=== PATIENT | female | born 1935 | race Caucasian/White ===

== ENCOUNTER → 2016-08-28 | Outpatient (CLI) | payer BC ==
[~2016-08-28] MED LIST: CALCTAB5 PO; COEN1CAP PO; GLC500 PO; GLIM2TAB2 PO; MULT-506 PO; SIMV20TA2 PO
--- NOTE | 2016-08-28 15:58 | MAMMOGRAPHY REPORT ---
BILATERAL DIGITAL SCREENING MAMMOGRAM WITH CAD: 08/28/2016 CLINICAL HISTORY: Routine screening. Patient has no complaints. TECHNIQUE: Bilateral CC and MLO views were obtained. Current study was also evaluated with a Comput er Aided Detection (CAD) system. COMPARISON: Comparison is made to exams dated: 04/05/2015 mammogram, 02/05/2013 mammogram, 02/10/2014 ma mmogram, 03/10/2014 mammogram - [facility], 01/28/2008, and 01/28/2009. BREAST COMPOSITION: There are scattered areas of fibroglandular density in both breasts. FINDINGS: The MLO views, particularly the left MLO view are suboptimal due to inability of the patie nt to adequately position for the exam, partially due to a humerus fracture. There are scattered benign-appearing calcifications bilaterally. A stable metallic biopsy marker i n the 6:00 posterior right breast. Stable asymmetry in the superior posterior left breast. No susp icious mass, architectural distortion or cluster of microcalcifications is seen. IMPRESSION: ACR BI-RADS CATEGORY 1: NEGATIVE There is no mammographic evidence of malignancy, within the limitations of the exam given suboptimal MLO positioning. A 1 year screening mammogram is recommended. The patient will receive written not ification of the results. Approximately 10% of breast cancers are not detected with mammography. A negative mammographic repor t should not delay biopsy if a clinically suggestive mass is present. Cari Bueno M.D. ay/:08/28/2016 14:37:42 Scrap Cutter: Mariah PAULA(Rubina)(Jennifer), [facility] letter sent: Normal 1/2 BI-RADS Code: ACR BI-RADS Category 1: Negative
--- NOTE | 2016-09-11 10:38 | CODING QUERY MEDICAL NECESSITY ---
SUPPORTING DIAGNOSIS NEEDED A supporting diagnosis is required for the test/procedure performed on this patient in order for us to be reimbursed by the patient's insurance. Please provide a supporting diagnosis for the following test/procedure listed below next to the test name along with your signature. *If there is no additional diagnosis for this patient that would support the following test/procedure please document that below next to the test/procedure. Test(s)/Procedure(s) that require a supporting diagnosis: * VITAMIN D 25-HYDROXY DIAGNOSIS: * DOS: 08/28/16 Provider Signature: Date: Thank you Anastasiia Rivera Health Information Management Once completed, please kindly fax back to [phone] For questions please call [phone]
== END | disposition home or self-care (01) ==
LOC: C.MAMM 13:55
PROVIDERS: ATTEND Internal Medicine
DX: Z12.31 Encounter for screening mammogram for malignant neoplasm of breast (principal); M85.852 Other specified disorders of bone density and structure, left thigh; M85.851 Other specified disorders of bone density and structure, right thigh; E55.9 Vitamin D deficiency, unspecified

== ENCOUNTER → 2016-08-28 | Outpatient (CLI) | payer BC | END | disposition home or self-care (01) | LOC: C.LAB1850 13:35 | PROVIDERS: ATTEND Internal Medicine Geriatric Medicine | DX: S52.501A Unspecified fracture of the lower end of right radius, initial encounter for closed fracture (principal); X58.XXXA Exposure to other specified factors, initial encounter ==

== ENCOUNTER → 2017-03-21 | Outpatient (CLI) | payer BC ==
[2017-03-21 13:33] LABS: BASO % 0.4 %; BASO ABS # 0.03 K/uL (0-0.2); COMPLETE YES; EOS % 2.5 %; HEMATOCRIT 45.9 % (37-47); IG% 0.2 %; LYMPH % 31.3 %; MEAN CELL VOLUME 94.3 fL (80-100); MEAN CORPUSCULAR HEMOGLOBIN 31.6 pg (25-34); MEAN CORPUSCULAR HGB CONC 33.6 g/dl (32-36); MEAN PLATELET VOLUME 10.8 fL (7.4-10.4); MONO % 6.1 %; NEUT % 59.5 %; PLATELET COUNT 254 K/uL (130-400); RED BLOOD COUNT 4.87 M/uL (4.2-5.4)
[2017-03-21 13:52] LABS: BLOOD UREA NITROGEN 18 mg/dl (7-18); BUN/CREATININE RATIO 27.8 (10-20); CALCIUM 10.2 mg/dl (8.5-10.1); CARBON DIOXIDE 29 mmol/L (21-32); CHLORIDE 107 mmol/L (98-107); CREATININE 0.64 mg/dl (0.60-1.20); GLUCOSE 128 mg/dl (70-99); POTASSIUM 4.3 mmol/L (3.5-5.1); SODIUM 138 mmol/L (136-145)
[2017-03-21 13:53] LABS: ESTIMATED AVERAGE GLUCOSE 146 mg/dl; HA1C FLAG Normal (Normal)
[2017-03-21 13:55] LABS: ALKALINE PHOSPHATASE 73 U/L (45-117); ALT/SGPT 17 U/L (12-78); AST/SGOT 14 U/L (15-37)
--- NOTE | 2017-03-28 11:32 | CODING QUERY MEDICAL NECESSITY ---
SUPPORTING DIAGNOSIS NEEDED A supporting diagnosis is required for the test/procedure performed on this patient in order for us to be reimbursed by the patient's insurance. Please provide a supporting diagnosis for the following test/procedure listed below next to the test name along with your signature. *If there is no additional diagnosis for this patient that would support the following test/procedure please document that below next to the test/procedure. Test(s)/Procedure(s) that require a supporting diagnosis: * HEMOGLOBIN A1C DIAGNOSIS: Provider Signature: Date: Thank you Yaneli Roque [facility] Information Management Once completed, please kindly fax back to [phone] For questions please call [phone]
== END | disposition home or self-care (01) ==
LOC: C.LABBC 10:10
PROVIDERS: ATTEND Internal Medicine
DX: E55.9 Vitamin D deficiency, unspecified (principal); E11.9 Type 2 diabetes mellitus without complications

== ENCOUNTER → 2017-10-23 | Outpatient (CLI) | payer BC ==
--- NOTE | 2017-10-24 14:54 | MAMMOGRAPHY REPORT ---
BILATERAL DIGITAL SCREENING MAMMOGRAM TOMOSYNTHESIS WITH CAD: 10/23/2017 CLINICAL HISTORY: Routine screening. Patient has no complaints. TECHNIQUE: Breast tomosynthesis in addition to standard 2D mammography was performed. Current study was also evaluated with a Computer Aided Detection (CAD) system. COMPARISON: Comparison is made to exams dated: 08/28/2016 mammogram, 04/05/2015 mammogram, 02/10/2014 ma mmogram, 02/05/2013 mammogram, 02/05/2012 mammogram, and 02/02/2011 mammogram - [facility]. BREAST COMPOSITION: There are scattered areas of fibroglandular density in both breasts. FINDINGS: A linear scar marker overlies the superior left breast. There are scattered benign round a nd rim calcifications. A stable dumbbell-shaped biopsy marker clip in the 6:00 right breast. No susp icious mass, architectural distortion or cluster of microcalcifications is seen. IMPRESSION: ACR BI-RADS CATEGORY 1: NEGATIVE There is no mammographic evidence of malignancy. A 1 year screening mammogram is recommended. The pa tient will receive written notification of the results. Approximately 10% of breast cancers are not detected with mammography. A negative mammographic report should not delay biopsy if a clinically suggestive mass is present. Cari Bueno M.D. ay/:10/23/2017 15:51:49 Attending Technologist: Kathy Cai RT(R)(M), [facility] Carpenter Rough: Ana Shelley RT(R)(M), [facility] letter sent: Normal 1/2 BI-RADS Code: ACR BI-RADS Category 1: Negative
== END | disposition home or self-care (01) ==
LOC: C.MAMM 14:54
PROVIDERS: ATTEND Internal Medicine
DX: Z12.31 Encounter for screening mammogram for malignant neoplasm of breast (principal)

== ENCOUNTER 2019-02-24 19:45 | Inpatient (IN) ==
[2019-02-24] MEDS ORDERED: SODIUM CHLORIDE 0.9% 1000ML 1,000 ML IV SCH (20:15)
[2019-02-24 20:43] LABS: Basophils # (auto) 0.01 K/uL (0-0.2); Basophils % (auto) 0.1 %; Eosinophils # (auto) 0.03 K/uL (0-0.5); Eosinophils % (auto) 0.4 %; Hematocrit (blood only) 36.3 % (37-47); Hemoglobin 12.5 g/dL (12.0-16.0); Immature Granulocytes # (auto) 0.02 K/uL (0.00-0.02); Immature Granulocytes % (auto) 0.3 %; Lymphocytes # (auto) 1.31 K/uL (1.2-3.4); Lymphocytes % (auto) 16.7 %; Mean Corpuscular Hgb Conc 34.4 g/dL (32-36); Mean Corpuscular Volume 93.3 fL (80-100); Mean Platelet Volume 10.2 fL (7.4-10.4); Monocytes % (auto) 11.5 %; Neutrophils # (auto) 5.59 K/uL (1.4-6.5); Platelet Count 161 K/uL (130-400); RDW Coefficient of Variation 13.4 % (11.5-14.5); RDW Standard Deviation 45.9 fL (36.4-46.3); Red Blood Count 3.89 M/uL (4.2-5.4); White Blood Count 7.86 K/uL (4.8-10.8)
[2019-02-24 21:15] LABS: Alanine Aminotransferase 15 U/L (12-78); Albumin Globulin Ratio 0.9 (0.9-2); Albumin Level 3.3 gm/dl (3.4-5.0); Alkaline Phosphatase 57 U/L (45-117); Aspartate Aminotransferase 15 U/L (15-37); BUN Creatinine Ratio 28.7 (10-20); Bilirubin,Total 0.9 mg/dl (0.2-1); Blood Urea Nitrogen 21 mg/dl (7-18); Calcium 9.2 mg/dl (8.5-10.1); Carbon Dioxide 25 mmol/L (21-32); Chloride 106 mmol/L (98-107); Creatinine Clr Calc Pharmacy 66.2 ml/min; Est GFR (African American) 87.4; Est GFR (Non-African American) 75.4; Globulin 3.7 gm/dl (2.5-4.0); Glucose 116 mg/dl (70-99); NT Pro B Type Natriuretic Pept 499 pg/ml (0-1800); Potassium 3.9 mmol/L (3.5-5.1); Sodium 136 mmol/L (136-145); Troponin I < 0.015 ng/ml (0-0.045)
--- NOTE | 2019-02-24 23:50 | History & Physical Report ---
Date of Service February 24, 2019 Assessment & Plan (1) Acute UTI: Follow urine culture and sensitivity. Had been placed on Cefdinir with failed outpatient therapy. Admit on ceftriaxone 1 g IV daily Present on Admission?: Yes (2) Acute confusion: Metabolic encephalopathy secondary to acute UTI and dehydration. Family reports she is somewhat improved in ED after some IV fluids Present on Admission?: Yes (3) Dehydration: Rehydrating with NSS at 200 mils per hour in the ED, will continue with NSS + KCl 20 mEq at 80 mils per hour. Present on Admission?: Yes (4) Cognitive impairment: Cognitive impairment/dementia continue donepezil 10 mg at bedtime Present on Admission?: Yes (5) Type 2 diabetes mellitus: Hold glimeperide Patient Accu-Cheks before meals and at bedtime with NovoLog coverage per scale Present on Admission?: Yes (6) Hyperlipidemia: Continue simvastatin 20 mg at bedtime Present on Admission?: Yes (7) Urinary urgency: Urge incontinence/bladder spasm- Continue tolterodine ER 4 mg daily Present on Admission?: Yes (8) Fall: Patient has had 3 falls, 2 in the past day, Likely secondary to generalized weakness associated with UTI. She does use a walker, and would likely benefit from PT/ OT assessment prior to discharge Present on Admission?: Yes History of Present Illness Chief Complaint: The patient presents to the emergency department with report of a total of 3 falls, with the first fall being 3 days ago, and 2 falls earlier in the day of arrival. Primary Care Provider: Aniket Drake MD The patient is a an 83-year-old female with past medical history including hyperlipidemia, diabetes mellitus and dementia, who presents to the ED with 3 reported falls in the past 3 days, 2 of them happening in the day of arrival. Her family reports that she has been more confused, with worsening memory loss, and also note had been started on an antibiotic Ceftin ear for UTI she was diag nosed with the previous day. The patient reports increased urinary frequency, and has been drinking less water lately, so that she does not have to run to the bathroom so much. Her UTI yesterday was diagnosed at the ED, after she felt unwell at the [facility]. She does have a history of recurrent urinary tract infections. Allergies Allergy/AdvReac Type Severity Reaction Status Date / Time adhesive Allergy Unknown SKIN Verified 02/24/19 20:54 BLISTERS tetanus toxoid, adsorbed Allergy Unknown EDEMA AT Verified 02/24/19 20:54 SITE codeine AdvReac Unknown HEART Verified 02/24/19 20:54 PALPITATIONS, RECIEVED MORPHINE IV IN 2004 ADMIT Home Medications Home Medications Medication Instructions Recorded Confirmed Type calcium carbonate 600 mg calcium 600 mg PO DAILY tab 01/01/19 02/24/19 History (1,500 mg) tablet cholecalciferol (vitamin D3) 2,000 2,000 units PO DAILY cap 01/01/19 02/24/19 History unit capsule coenzyme Q 10 10 mg capsule 10 mg PO DAILY cap 01/01/19 02/24/19 History donepezil 10 mg tablet 10 mg PO HS #30 tab 01/01/19 02/24/19 History glimepiride 2 mg tablet 4 mg PO DAILY #180 tab 01/01/19 02/24/19 History multivitamin tablet 1 tab PO DAILY 01/01/19 02/24/19 History omega-3 acid ethyl esters 1 gram 2 cap PO DAILY cap 01/01/19 02/24/19 History capsule simvastatin 20 mg tablet 20 mg PO QPM #90 tab 01/01/19 02/24/19 History tolterodine ER 4 mg 4 mg PO DAILY #90 cap 01/01/19 02/24/19 History capsule,extended release 24 hr vitamin B complex tablet 1 tab PO DAILY 01/01/19 02/24/19 History celecoxib 200 mg capsule 200 mg PO DAILY #30 cap 01/02/19 02/24/19 Rx tramadol 50 mg tablet 50 mg PO DAILY #30 tab 02/01/19 02/24/19 Rx cefdinir 300 mg PO BID 5 Days #10 cap 02/23/19 02/24/19 Rx Past Med/Surg History Medical History Abnormal finding on imaging Cognitive impairment Cyst of kidney, acquired Edema of left lower extremity Fatigue Knee pain Laceration Memory loss, 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 Pain of right tibia Right knee pain Urinary urgency Vitamin D deficiency Gait instability Gastroesophageal reflux Hyperlipidemia Type 2 diabetes mellitus Surgical History H/O: hysterectomy History of appendectomy Hx of knee surgery Family History Sister Diabetes Stroke Brother Diabetes Prostate cancer Father Lung disease Social History Preferred Language: [place] Communication Ability: Effective Crematorium Operator Required: No Beliefs That Will Affect Care: None Current Living Situation: Alone Other Information That Helps Us Care for You: No Feels Safe at Home: Yes Safety Concerns: Feels Safe At This Time Smoking Status: Former smoker Hx Alcohol Use: Yes Alcohol type: wine Hx Substance Use: No caffeine: No Seatbelt Use: always Review of Systems Review of Systems: The patient denies chest pain, palpitations, shortness of breath, dyspnea on exertion, cough, sore throat, fevers, chills, sweats, nausea, vomiting, diarrhea , constipation, abdominal pain, pelvic pain, blood in urine or stool, dysuria, urinary frequency or urgency, lightheadedness, dizziness, headache, loss of consciousness, rash, abnormal bruising or bleeding, focal weakness, numbness or tingling in arms or legs, generalized arthralgias or myalgias, back or neck pain, or night sweats. The review of systems is otherwise negative other than for that already noted above, and at least 10 systems have been reviewed. Physical Exam Physical Exam: The patient is awake, alert and oriented 3, well developed and well nourished, normocephalic and atraumatic, lying in bed and in no acute distress. HEENT--PERRL, EOMI, mucous membranes and oropharynx dry. Neck--supple. No JVD. No bruits. Thyroid normal, trachea midline, no nilam nopathy. Heart--normal S1 and S2. No murmurs, rubs or gallops. Lungs--clear bilaterally, no respiratory distress, no accessory muscle use. Abdomen--normal bowel sounds and soft. Nontender. Nondistended. Extremities--no cyanosis or clubbing. No edema. There are good distal pulses b/l. Dermatologic--normal skin turgor, normal color, no abnormal lymph nodes, no rash. Neurologic--cranial nerves II through XII grossly intact. Rheumatologic--normal range of motion. Psychiatric--normal affect. Family reports the patient is significantly better after having received IV fluids in the ED Results & Data Vital Signs (Past 12 Hours) Vital Signs Temp Pulse Pulse Resp BP BP Pulse Ox 02/24/19 23:30 67 20 140/69 95 02/24/19 22:30 68 16 133/70 96 02/24/19 22:00 67 18 131/69 94 02/24/19 21:30 69 17 141/71 H 95 02/24/19 21:00 68 18 129/65 95 02/24/19 20:44 70 20 130/62 95 02/24/19 20:43 70 20 130/62 92 02/24/19 20:30 69 20 02/24/19 20:00 74 26 H 150/59 H 93 02/24/19 19:54 76 23 93 02/24/19 19:51 77 18 160/63 H 93 02/24/19 19:40 99.5 F 75 20 160/63 H 93 Laboratory Results Laboratory Results WBC 7.86 K/uL (4.8-10.8) 02/24/19 20: RBC 3.89 M/uL (4.2-5.4) L 02/24/19 20:27 Hgb 12.5 g/dL (12.0-16.0) 02/24/19 20:27 Hct 36.3 % (37-47) L 02/24/19 20:27 MCV 93.3 fL (80-100) 02/24/19 20:27 MCH 32.1 pg (25-34) 02/24/19 20: MCHC 34.4 g/dL (32-36) 02/24/19 20:27 RDW Std Deviation 45.9 fL (36.4-46.3) 02/24/19 20: RDW Coeff of Junie 13.4 % (11.5-14.5) 02/24/19 20: Plt Count 161 K/uL (130-400) 02/24/19 20: MPV 10.2 fL (7.4-10.4) 02/24/19 20: Immature Gran % (Auto) 0.3 % 02/24/19 20:27 Neut % (Auto) 71.0 % 02/24/19 20:27 Lymph % (Auto) 16.7 % 02/24/19 20:27 Mckenzie % (Auto) 11.5 % 02/24/19 20:27 Eos % (Auto) 0.4 % 02/24/19 20:27 Baso % (Auto) 0.1 % 02/24/19 20: Immature Gran # (Auto) 0.02 K/uL (0.00-0.02) 02/24/19 20: Neut # (Auto) 5.59 K/uL (1.4-6.5) 02/24/19 20: Lymph # (Auto) 1.31 K/uL (1.2-3.4) 02/24/19 20: Mckenzie # (Auto) 0.90 K/uL (0.11-0.59) H 02/24/19 20: Eos # (Auto) 0.03 K/uL (0-0.5) 02/24/19 20: Baso # (Auto) 0.01 K/uL (0-0.2) 02/24/19 20: Sodium 136 mmol/L (136-145) 02/24/19 20: Potassium 3.9 mmol/L (3.5-5.1) 02/24/19 20: Chloride 106 mmol/L (98-107) 02/24/19 20: Carbon Dioxide 25 mmol/L (21-32) 02/24/19 20: Anion Gap 6.0 (3-11) 02/24/19 20: BUN 21 mg/dl (7-18) H 02/24/19 20: Creatinine 0.74 mg/dl (0.6-1.2) 02/24/19 20: Est Cr Clr Drug Dosing 66.2 ml/min 02/24/19 20: Est GFR ( Amer) 87.4 02/24/19 20: Est GFR (Non-Af Amer) 75.4 02/24/19 20: BUN/Creatinine Ratio 28.7 (10-20) H 02/24/19 20: Glucose 116 mg/dl (70-99) H 02/24/19 20: POC Glucose 125 (70-99) H 02/25/19 00:33 POC Lactic Acid Femi 0.71 mmol/L (0.90-1.70) L 02/24/19 20: Calcium 9.2 mg/dl (8.5-10.1) 02/24/19 20: Magnesium 2.0 mg/dl (1.8-2.4) 02/24/19 20:27 Total Bilirubin 0.9 mg/dl (0.2-1) 02/24/19 20:27 AST 15 U/L (15-37) 02/24/19 20:27 ALT 15 U/L (12-78) 02/24/19 20: Alkaline Phosphatase 57 U/L (45-117) 02/24/19 20: Troponin I < 0.015 ng/ml (0-0.045) 02/24/19 20: NT-Pro-B Natriuret Pep 499 pg/ml (0-1800) 02/24/19 20: Total Protein 7.0 gm/dl (6.4-8.2) 02/24/19 20: Albumin 3.3 gm/dl (3.4-5.0) L 02/24/19 20: Globulin 3.7 gm/dl (2.5-4.0) 02/24/19 20: Albumin/Globulin Ratio 0.9 (0.9-2) 02/24/19 20: Lipase 121 U/L (73-393) 02/24/19 20: TSH 2.110 uIu/ml (0.300-4.500) 02/24/19 20:27 Diagnostic Findings [place], [place] [phone] CT Scan Report Patient: FARZAD OLIVEIRA AAdmit Date: 02/23/19 MR#: [id number]: [address] [place] [address] Acct ID:[id number]: [address] Date: 1935[facility] Zip: [place] [address] Age: 83Location: Sex: F Room/Bed: Att Phy: Diagnosis: Increased confusion today Hellen Phy: Aniket Drakeervice Date: 02/23/19 Fam Phy: Interpreting Phy: Chandan Scott MD Admit Phy: Ordering Phy: Trino Ballard DO cc: ~ CT SCAN OF THE BRAIN WITHOUT IV CONTRAST CLINICAL HISTORY: Change in mental status. COMPARISON STUDY: CT of the brain dated 07/07/2015. TECHNIQUE: Unenhanced axial CT scan of the brain is performed from the vertex to the skull base. A dose lowering technique was utilized adhering to the principles of ALARA. The skull base was scanned twice due to motion artifact. CT DOSE: 1228.53 mGy.cm FINDINGS: Brain parenchyma: There are age-related involutional changes noting moderate confluent subcortical and periventricular microangiopathic change. There is no hemorrhage, mass effect, or evidence of acute territorial ischemia by CT criteria. Croft-white matter differentiation is preserved. No extra-axial fluid collection is seen. Ventricles, sulci, cisterns: Prominent secondary to involutional change. Intracranial vasculature: There is atherosclerotic calcification of the cavernous carotid arteries. Calvarium: Unremarkable. Sinuses and mastoids: Fluid/secretions are noted in the left sphenoid sinus. The remaining visualized paranasal sinuses are clear. The mastoid air cells are well pneumatized. Orbits: The bony orbits are grossly intact. There are bilateral ocular lens implants. IMPRESSION: There is no hemorrhage, mass effect, or evidence of acute territorial ischemia by CT criteria. Electronically signed by: Chandan Scott M.D. 02/23/2019 7:40 PM Dictated: 02/23/191936 Transcribed: 02/23/191936 [place], [place] [phone] XRay Report Patient: FARZAD OLIVEIRA AAdmit Date: 02/23/19 MR#: [id number]: [address] [place] [address] Acct ID:[id number]: [address] [facility] Zip: [place] [address] Age: 83Location: ED Sex: F Room/Bed: Att Phy: Diagnosis: Increased confusion today Hellen Phy: Aniket Drake MDService Date: 02/23/19 Fam Phy: Interpreting Phy: Chandan Scott MD Admit Phy: Ordering Phy: Trino Ballard DO cc: ~ SINGLE VIEW CHEST CLINICAL HISTORY: Generalized weakness. FINDINGS: An AP, portable, upright chest radiograph is compared to study dated 11/13/2015. No prior studies are available for comparison at the time of dictation. The heart is enlarged and there is atherosclerotic calcification of the thoracic aorta. The pulmonary vasculature is noncongested. There is bibasil ar scarring/atelectasis. No airspace consolidation or large pleural effusion is identified. No pneumothorax is seen. The skeletal structures are osteopenic. There is chronic posttraumatic deformity and postoperative change seen in the left humerus. IMPRESSION: Cardiomegaly with no active disease in the chest. Electronically signed by: Chandan Scott M.D. 02/23/2019 7:21 PM Dictated: 02/23/191919 Transcribed: 02/23/191919 Code Status & VTE Plan Code Status Full code VTE Prophylaxis Plan VTE Prophylaxis will be ordered: Yes PG Care Time/CCT Total # of Minutes Spent Total Time Spent with Patient: Total time spent is greater than 50% in coordination of care (as documented) at patient's floor/unit and/or counseling patient: (1) Fall Encounter type: initial encounter Qualified Code(s): W19.XXXA - Unspecified fall, initial encounter
[2019-02-25] MEDS ORDERED: CARBOHYDRATES FOR HYPOGLYCEMIA PO PRN (00:52)
[2019-02-25] MEDS ORDERED: DEXTROSE 50% 50 ML SYRINGE IV PRN (00:52)
[2019-02-25] MEDS ORDERED: GLUCAGON FOR INJ 1 MG VIAL SQ PRN (00:52)
[2019-02-25] MEDS ORDERED: ALUMINUM/MAGNESIUM SUSP 30 ML UDC PO PRN (00:52)
[2019-02-25] MEDS ORDERED: MAGNESIUM HYDROXIDE SUSP 30 ML UDC PO PRN (00:52)
[2019-02-25] MEDS ORDERED: GLUCOSE 10 TABS/TUBE PO PRN (00:52)
[2019-02-25] MEDS ORDERED: ONDANSETRON INJ 2 MG/ML 2 ML VIAL IV PRN (00:52)
[2019-02-25] MEDS ORDERED: GLUCOSE 40% GEL 15 GM TUBE PO PRN (00:52)
--- NOTE | 2019-02-25 01:29 | Emergency Department Note ---
Entered by Rhianna Gonzalez acting as a scribe for Jenni Mullen DO History of Present Illness General Chief complaint: Weakness Time Seen by Provider: 02/24/19 19:57 Source: patient Mode of arrival: ambulatory Limitations: no limitations History of Present Illness Provider complaint: weakness Onset (ago): day(s) 3 Location: left (body ) and right (body ) Pain Consistency: + other (episode ) Associated symptoms: + denies other symptoms (abdominal pain, urinary symptoms, kidney issues ) and + other (slight back pain, black stool ); no chest pain, no fever/chills, no nausea/vomiting and no shortness of breath The patient is an 83 year old female with a PMHX of hyperlipidemia, edema of the legs, and memory loss, who presents to the ED with complaints of an episode of weakness that began 3 days ago. The patient states that she feels weak and her body just falls. She states that she has fallen 3 times in 3 days. The patient states that the last time she fell was this morning. The patient states that she was walking in the bathroom and fell on the floor because her legs were weak. The patient states that she uses a walker occasionally. The patient states that her bowel movements have been black for several days which she believes is due to her medications. She states that she does not take Iron supplements. The patient states that she was seen in the ED yesterday after she felt abnormal at the [facility]. She states that the physicians found that the patient was dehydrated and had a UTI. She states that she was prescribed Cephalexin. She states that she is unsure if she is prone to UTIs. She states that she has not been drinking water because she does not want to go to the bathroom as often. The patients [id number] states that the patient lives alone. The patient denies fevers, chills, nausea, vomiting, and shortness of breath, chest pain, abdominal pain, and urinary symptoms. She states that she does not think she has kidney problems. She denies any heart issues. Home Medications Home Medications Medication Instructions Recorded Confirmed Type calcium carbonate 600 mg calcium 600 mg PO DAILY tab 01/01/19 02/24/19 History (1,500 mg) tablet cholecalciferol (vitamin D3) 2,000 2,000 units PO DAILY cap 01/01/19 02/24/19 History unit capsule coenzyme Q 10 10 mg capsule 10 mg PO DAILY cap 01/01/19 02/24/19 History donepezil 10 mg tablet 10 mg PO HS #30 tab 01/01/19 02/24/19 History glimepiride 2 mg tablet 4 mg PO DAILY #180 tab 01/01/19 02/24/19 History multivitamin tablet 1 tab PO DAILY 01/01/19 02/24/19 History omega-3 acid ethyl esters 1 gram 2 cap PO DAILY cap 01/01/19 02/24/19 History capsule simvastatin 20 mg tablet 20 mg PO QPM #90 tab 01/01/19 02/24/19 History tolterodine ER 4 mg 4 mg PO DAILY #90 cap 01/01/19 02/24/19 History capsule,extended release 24 hr vitamin B complex tablet 1 tab PO DAILY 01/01/19 02/24/19 History celecoxib 200 mg capsule 200 mg PO DAILY #30 cap 01/02/19 02/24/19 Rx tramadol 50 mg tablet 50 mg PO DAILY #30 tab 02/01/19 02/24/19 Rx cefdinir 300 mg PO BID 5 Days #10 cap 02/23/19 02/24/19 Rx Allergies Allergy/AdvReac Type Severity Reaction Status Date / Time adhesive Allergy Unknown SKIN Verified 02/24/19 20:54 BLISTERS tetanus toxoid, adsorbed Allergy Unknown EDEMA AT Verified 02/24/19 20:54 SITE codeine AdvReac Unknown HEART Verified 02/24/19 20:54 PALPITATIONS, RECIEVED MORPHINE IV IN 2004 ADMIT Past Med/Surg History Medical History Abnormal finding on imaging Cognitive impairment Cyst of kidney, acquired Edema of left lower extremity Fatigue Knee pain Laceration Memory loss, 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 Pain of right tibia Right knee pain Urinary urgency Vitamin D deficiency Gait instability Gastroesophageal reflux Hyperlipidemia Type 2 diabetes mellitus Surgical History H/O: hysterectomy History of appendectomy Hx of knee surgery Family History Sister Diabetes Stroke Brother Diabetes Prostate cancer Father Lung disease Social History Preferred Language: Ethiopian Communication Ability: Effective Lapper Required: No Beliefs That Will Affect Care: None Current Living Situation: Alone Other Information That Helps Us Care for You: No Feels Safe at Home: Yes Safety Concerns: Feels Safe At This Time Smoking Status: Former smoker Hx Alcohol Use: Yes Alcohol type: wine Hx Substance Use: No caffeine: No Seatbelt Use: always Review of Systems See HPI for pertinent positives & negatives. and A total of 10 systems reviewed and were otherwise negative Physical Exam Vital Signs Vital Signs - 24 hr 02/24/19 19:40 02/24/19 19:51 02/24/19 19:54 Temperature 37.5 C Temperature Source Oral Sepsis Recent Fever Within 48 Hours Yes Sepsis Action Taken by Nursing No Action Required Pulse Rate 75 77 76 Pulse Rate [Finger] Pulse Rate from SpO2 Sensor 77 76 Pulse Rhythm Regular Pulse Strength Normal Respiratory Rate 20 18 23 Respiratory Effort / Characteristics Normal for Patient Respiratory Depth Normal Respiratory Pattern Regular Blood Pressure 160/63 H 160/63 H Blood Pressure [Right Arm] Blood Pressure Mean 95 95 Blood Pressure Mean [Right Arm] Blood Pressure Position Lying Pulse Oximetry 93 93 93 Oxygen Delivery Method Room Air 02/24/19 20:00 02/24/19 20:30 02/24/19 20:43 Temperature Temperature Source Sepsis Recent Fever Within 48 Hours Sepsis Action Taken by Nursing Pulse Rate 74 69 70 Pulse Rate [Finger] Pulse Rate from SpO2 Sensor 74 69 Pulse Rhythm Pulse Strength Respiratory Rate 26 H 20 20 Respiratory Effort / Characteristics Respiratory Depth Respiratory Pattern Blood Pressure 150/59 H 130/62 Blood Pressure [Right Arm] Blood Pressure Mean 89 84 Blood Pressure Mean [Right Arm] Blood Pressure Position Pulse Oximetry 93 92 Oxygen Delivery Method 02/24/19 20:44 02/24/19 21:00 02/24/19 21:30 Temperature Temperature Source Sepsis Recent Fever Within 48 Hours Sepsis Action Taken by Nursing Pulse Rate 68 69 Pulse Rate [Finger] 70 Pulse Rate from SpO2 Sensor 67 68 Pulse Rhythm Pulse Strength Respiratory Rate 20 18 17 Respiratory Effort / Characteristics Non-Labored Spontaneous Respiratory Depth Normal Respiratory Pattern Blood Pressure 129/65 141/71 H Blood Pressure [Right Arm] 130/62 Blood Pressure Mean 86 94 Blood Pressure Mean [Right Arm] 84 Blood Pressure Position Pulse Oximetry 95 95 95 Oxygen Delivery Method Room Air 02/24/19 22:00 02/24/19 22:30 08/20/19 23:30 Temperature Temperature Source Sepsis Recent Fever Within 48 Hours Sepsis Action Taken by Nursing Pulse Rate 67 68 Pulse Rate [Finger] 67 Pulse Rate from SpO2 Sensor 68 69 Pulse Rhythm Pulse Strength Respiratory Rate 18 16 20 Respiratory Effort / Characteristics Respiratory Depth Respiratory Pattern Blood Pressure 131/69 133/70 Blood Pressure [Right Arm] 140/69 Blood Pressure Mean 89 91 Blood Pressure Mean [Right Arm] 92 Blood Pressure Position Pulse Oximetry 94 96 95 Oxygen Delivery Method Room Air GENERAL: alert, well appearing, well nourished, no distress, non-toxic EYE EXAM: normal conjunctiva, PERRL and EOM's grossly intact OROPHARYNX: no exudate, no erythema, lips, buccal mucosa, and tongue normal and mucous membranes are moist NECK: supple, no nuchal rigidity, no adenopathy, non-tender LUNGS: Clear to auscultation. Normal chest wall mechanics, no w/r/r HEART: no murmurs, S1 normal and S2 normal ABDOMEN: abdomen soft, non-tender, normo-active bowel sounds, no masses, no rebound or guarding. RECTAL: External hemorrhoids seen, no bleeding, not thrombosed, brown toll in rectal vault, heme negative on hematocrit testing BACK: Back is symmetrical on inspection and there is no deformity, no midline tenderness, no CVA tenderness. SKIN: no rashes and no bruising UPPER EXTREMITIES: upper extremities are grossly normal. FROM, nml pulses b/l. LOWER EXTREMITIES: No pitting edema. Contusion noted on the distal left lower extremity pre-tibial mid-shaft area, normal distal pulses bilaterally, no deformities. NEURO EXAM: Normal sensorium, cranial nerves II-XII grossly intact, normal speech, no gross weakness of arms, no gross weakness of legs. No facial droop, no limb ataxia. Course 2000: Past medical records reviewed. The patient was evaluated in room B3. A complete history and physical exam was performed. 2257: I reevaluated the patient at this time and she had additional family at the bedside now. The family stated that the patient has increased confusion over the past 24 hours. 2299: I discussed the patient's case with Dr. Johnson, [facility]. He agreed to evaluate the patient for further management. Consultations Consultation #1: I discussed the patient's case with Dr. Johnson, [facility]. He agreed to evaluate the patient for further management. Time: 23:00 Administered Medications Discontinued Medications Sodium Chloride (Nss 1000ml) 1,000 mls @ 200 mls/hr IV .Q5H PHOEBE Stop: 03/26/19 20:14 Last Infusion: 02/25/19 01:00 Dose: 0 mls/hr Documented by: [id number] Admin: 02/24/19 20:45 Dose: 200 mls/hr Documented by: [id number] Medical Decision Making Differential Diagnosis Differential Diagnosis includes but is not limited to dehydration, stroke, anemia, hypoglycemia, hyponatremia, hypernatremia, urinary tract infection, pneumonia, bronchitis, sepsis, gastroenteritis, additional abdominal pathology, metabolic abnormalities and infections. Medical Records Attestation: I reviewed the patient's medical records. Home Medications Current Medication List: was personally reviewed by me Laboratory Data Attestation: I reviewed the patient's lab results. Result diagrams: 02/24/19 20:27 02/24/19 20:27 Lab Results 02/24/19 02/24/19 02/24/19 Range/Units 20:27 20:27 20:41 WBC 7.86 (4.8-10.8) K/uL RBC 3.89 L (4.2-5.4) M/uL Hgb 12.5 (12.0-16.0) g/dL Hct 36.3 L (37-47) % MCV 93.3 (80-100) fL MCH 32.1 (25-34) pg MCHC 34.4 (32-36) g/dL RDW Std Deviation 45.9 (36.4-46.3) fL RDW Coeff of Junie 13.4 (11.5-14.5) % Plt Count 161 (130-400) K/uL MPV 10.2 (7.4-10.4) fL Immature Gran % (Auto) 0.3 % Neut % (Auto) 71.0 % Lymph % (Auto) 16.7 % Bureau % (Auto) 11.5 % Eos % (Auto) 0.4 % Baso % (Auto) 0.1 % Immature Gran # (Auto) 0.02 (0.00-0.02) K/uL Neut # (Auto) 5.59 (1.4-6.5) K/uL Lymph # (Auto) 1.31 (1.2-3.4) K/uL [place] # (Auto) 0.90 H (0.11-0.59) K/uL Eos # (Auto) 0.03 (0-0.5) K/uL Baso # (Auto) 0.01 (0-0.2) K/uL Sodium 136 (136-145) mmol/L Potassium 3.9 (3.5-5.1) mmol/L Chloride 106 (98-107) mmol/L Carbon Dioxide 25 (21-32) mmol/L Anion Gap 6.0 (3-11) BUN 21 H (7-18) mg/dl Creatinine 0.74 (0.6-1.2) mg/dl Est Cr Clr Drug Dosing 66.2 ml/min Est GFR ( Amer) 87.4 Est GFR (Non-Af Amer) 75.4 BUN/Creatinine Ratio 28.7 H (10-20) Glucose 116 H (70-99) mg/dl POC Lactic Acid Femi 0.71 L (0.90-1.70) mmol/L Calcium 9.2 (8.5-10.1) mg/dl Magnesium 2.0 (1.8-2.4) mg/dl Total Bilirubin 0.9 (0.2-1) mg/dl AST 15 (15-37) U/L ALT 15 (12-78) U/L Alkaline Phosphatase 57 (45-117) U/L Troponin I < 0.015 (0-0.045) ng/ml NT-Pro-B Natriuret Pep 499 (0-1800) pg/ml Total Protein 7.0 (6.4-8.2) gm/dl Albumin 3.3 L (3.4-5.0) gm/dl Globulin 3.7 (2.5-4.0) gm/dl Albumin/Globulin Ratio 0.9 (0.9-2) Lipase 121 (73-393) U/L TSH 2.110 (0.300-4.500) uIu/ml ECG Data Attestation: I personally reviewed and interpreted this ECG as follows: Indication: weakness Rate (beats per minute): 71 Rhythm: sinus rhythm Findings: + other (normal intervals ) and + left axis deviation; no PAC, no PVC, no ST elevation and no ectopy Blood Pressure Blood Pressure Findings: Elevated blood pressure Blood Pressure Disposition: further management by hospitalist MDM Narrative Patient here brought in by family after 2 falls and worsening weakness noted today at home. Patient was recently seen and evaluated in the emergency room for urinary tract infection and dehydration. Patient's blood work today is improved compared to prior, patient does still appear clinically dehydrated. No evidence of failed outpatient treatment or resistant organism regarding the choice. No evidence of bacteremia/sepsis. Patient hemodynamically stable throughout. Patient was able to ambulate here with assistance and use of her walker, however concern given to recent falls in an elderly woman who does live at home alone and family's description of episodes of confusion today. Patient does answer questions of orientation appropriately for me now at this time, however sounds like patient has been markedly more confused today compared to her usual baseline. Patient is typically independent, performing all her own ADLs, shopping, cooking, and does still drive. Discussed with patient my concern for her condition and a safe discharge plan. Discussed with her my recommendation for additional inpatient evaluation and treatment, continued IV fluid hydration, continued treatment of her urinary tract infection, and possible need for PT/OT evaluation prior to discharge. She and family verbalized understanding of this and were in agreement with plan. I do not suspect pyelonephritis or other obstructive pathology related to the urinary tract infection that was found. No history of resistant organisms or frequent UTIs. I do not suspect any occult traumatic injury secondary to falls. Both patient and [id number] at bedside states he is these were a slow crumple to the floor while holding onto her walker landing on her buttocks. Impression & Plan Weakness, Dehydration, Confusion, Fall, UTI (urinary tract infection) Discharge Plan Visit Data *Final* Discharge Date/Time: 02/25/19 00:18 Chief Complaint: Weakness ED Provider: Jenni Mullen Discharge Problem: Weakness, Dehydration, Confusion, Fall, UTI (urinary tract infection) Patient Disposition: Admitted As Inpatient Discharge Instructions Interventions: ED Discharge Assessment Last Done: 02/25/19 00:18 Discharge Problem: Fall Qualifiers: Encounter type: initial encounter Qualified Code(s): W19.XXXA - Unspecified fall, initial encounter UTI (urinary tract infection) Qualifiers: Urinary tract infection type: site unspecified Hematuria presence: with hematuria Qualified Code(s): N39.0 - Urinary tract infection, site not specified The scribe's documentation has been prepared under my direction and personally reviewed by me in its entirety. I confirm that the note above accurately reflects all work, treatment, procedures, and medical decision making performed by me.
[2019-02-25] MEDS: cefTRIAXone SODIUM 2,000 MG in DEXTROSE 5% 50 ML IV SCH (03:26)
[2019-02-25] MEDS: NSS + 20MEQ KCL 20 MEQ/1,000 ML BAG IV SCH ×2 (03:26→17:27)
[2019-02-25 07:43] LABS: Estimated Average Glucose 126 mg/dl
[2019-02-25] MEDS: HEPARIN SOD 5,000 UNIT/0.5 ML VIAL SQ SCH ×2 (08:39→20:39)
[2019-02-25] MEDS: TOLTERODINE TARTRATE LA 4 MG CAPCR PO SCH (08:39)
[2019-02-25] MEDS: CALCIUM 600MG + VIT D 400 IU TAB PO SCH (08:39)
[2019-02-25] MEDS: MULTIVITAMIN TAB PO SCH (08:39)
[2019-02-25] MEDS: VITAMIN B COMPLEX TAB PO SCH (08:39)
[2019-02-25] MEDS: CHOLECALCIFEROL 1,000 UNITS TAB PO SCH (08:40)
[2019-02-25] MEDS: INSULIN ASPART 100 UNITS/ML 3 ML PEN SC SCH ×4 (09:30→20:38)
[2019-02-25] MEDS: ACETAMINOPHEN 325 MG TAB PO PRN (16:26)
--- NOTE | 2019-02-25 18:24 | Hospitalist Progress Note ---
Date of Service February 25, 2019 Assessment & Plan (1) Acute UTI: Follow urine culture and sensitivity -- E coli, pansensitive continue on Ceftriaxone while admitted, taper to PO antibiotics on discharge (2) Acute confusion: Metabolic encephalopathy secondary to acute UTI and dehydration. she is much better today, back to baseline continue IV fluids this evening as she does not drink enough, continue Rocephin (3) Dehydration: Rehydrating with NSS at 200 mils per hour in the ED, will continue with NSS + KCl 20 mEq at 80 mils per hour. continue this overnight tonight and stop fluids tomorrow educated patient on importance of drinking more (4) Cognitive impairment: Cognitive impairment/dementia continue donepezil 10 mg at bedtime (5) Type 2 diabetes mellitus: Hold glimeperide Patient Accu-Cheks before meals and at bedtime with NovoLog coverage per scale monitor for hypoglycemia (6) Hyperlipidemia: Continue simvastatin 20 mg at bedtime (7) Urinary urgency: Urge incontinence/bladder spasm- Continue tolterodine ER 4 mg daily (8) Fall: Patient has had 3 falls, 2 in the past day, Likely secondary to generalized weakness associated with UTI. She does use a walker, and would likely benefit from PT/ OT assessment prior to discharge PT/OT ordered today, will see if she needs rehab she lives independently by herself at baseline Subjective patient feeling much better today after IV fluids and antibiotics she says that her family was really concerned yesterday, she was acting mean, not herself she felt really weak she says her strength is better today, no acute issues she denies chest pain, dyspnea, fever/chills, nausea, vomiting, constipation reviewed labs from admission reviewed urine culture, growing valentine sensitive E coli discussed getting PT and OT evals, make sure she is strong enough to go home Review of Systems Review of Systems: All systems reviewed & are unremarkable except as noted in HPI & below Constitutional: + weakness; no fever, no chills and no fatigue Respiratory: no cough and no dyspnea Cardiovascular: no chest pain and no edema Gastrointestinal: no abdominal pain, no nausea, no vomiting, no constipation and no diarrhea/loose stools Musculoskeletal: + muscle weakness (generalized) Physical Exam Constitutional: WD/WN, vitals as above Eyes: PERRL, conjunctivae normal, anicteric sclerae ENMT: external ear and nose normal, oropharynx normal Neck: trachea midline, no thyromegaly Respiratory: normal respiratory effort, lungs clear to auscultation Cardiovascular: RRR, no murmur, no edema Gastrointestinal (Abdomen): normal bowel sounds, soft, nontender, no hepatosplenomegaly Musculoskeletal: no cyanosis or clubbing, extremities motor strength 5/5 Skin: no rashes, warm and dry Neurologic: patellar DTR's 2+ bilat, sensation intact and PERRL, EOMI, accommodation nl, no face palsy, no dysarthria Psychiatric: A+Ox3, euthymic affect Lymphatic: no cervical or axillary lymphadenopathy Results & Data Vital Signs (Past 12 Hours) Vital Signs Temp Pulse Pulse Resp BP Pulse Ox 02/25/19 16:30 57 L 02/25/19 15:06 36.6 C 59 L 20 139/81 97 02/25/19 11:21 36.7 C 56 L 18 111/71 95 02/25/19 07:27 36.8 C 60 20 127/72 94 02/25/19 07:18 63 Laboratory Results Laboratory Results - last 24 hr 02/24/19 02/24/19 02/24/19 20:27 20:27 20:41 WBC 7.86 RBC 3.89 L Hgb 12.5 Hct 36.3 L MCV 93.3 MCH 32.1 MCHC 34.4 RDW Std Deviation 45.9 RDW Coeff of Junie 13.4 Plt Count 161 MPV 10.2 Immature Gran % (Auto) 0.3 Neut % (Auto) 71.0 Lymph % (Auto) 16.7 [place] % (Auto) 11.5 Eos % (Auto) 0.4 Baso % (Auto) 0.1 Immature Gran # (Auto) 0.02 Neut # (Auto) 5.59 Lymph # (Auto) 1.31 [place] # (Auto) 0.90 H Eos # (Auto) 0.03 Baso # (Auto) 0.01 Sodium 136 Potassium 3.9 Chloride 106 Carbon Dioxide 25 Anion Gap 6.0 BUN 21 H Creatinine 0.74 Est Cr Clr Drug Dosing 66.2 Est GFR ( Amer) 87.4 Est GFR (Non-Af Amer) 75.4 BUN/Creatinine Ratio 28.7 H Glucose 116 H POC Glucose Estimat Average Glucose Hemoglobin A1c POC Lactic Acid Femi 0.71 L Calcium 9.2 Magnesium 2.0 Total Bilirubin 0.9 AST 15 ALT 15 Alkaline Phosphatase 57 Troponin I < 0.015 NT-Pro-B Natriuret Pep 499 Total Protein 7.0 Albumin 3.3 L Globulin 3.7 Albumin/Globulin Ratio 0.9 Lipase 121 TSH 2.110 02/25/19 02/25/19 02/25/19 00:33 06:27 07:40 WBC RBC Hgb Hct MCV MCH MCHC RDW Std Deviation RDW Coeff of Junie Plt Count MPV Immature Gran % (Auto) Neut % (Auto) Lymph % (Auto) [place] % (Auto) Eos % (Auto) Baso % (Auto) Immature Gran # (Auto) Neut # (Auto) Lymph # (Auto) [place] # (Auto) Eos # (Auto) Baso # (Auto) Sodium Potassium Chloride Carbon Dioxide Anion Gap BUN Creatinine Est Cr Clr Drug Dosing Est GFR ( Amer) Est GFR (Non-Af Amer) BUN/Creatinine Ratio Glucose POC Glucose 125 H 124 H Estimat Average Glucose 126 Hemoglobin A1c 6.0 H POC Lactic Acid Femi Calcium Magnesium Total Bilirubin AST ALT Alkaline Phosphatase Troponin I NT-Pro-B Natriuret Pep Total Protein Albumin Globulin Albumin/Globulin Ratio Lipase TSH 02/25/19 02/25/19 11:46 16:30 WBC RBC Hgb Hct MCV MCH MCHC RDW Std Deviation RDW Coeff of Junie Plt Count MPV Immature Gran % (Auto) Neut % (Auto) Lymph % (Auto) [place] % (Auto) Eos % (Auto) Baso % (Auto) Immature Gran # (Auto) Neut # (Auto) Lymph # (Auto) [place] # (Auto) Eos # (Auto) Baso # (Auto) Sodium Potassium Chloride Carbon Dioxide Anion Gap BUN Creatinine Est Cr Clr Drug Dosing Est GFR ( Amer) Est GFR (Non-Af Amer) BUN/Creatinine Ratio Glucose POC Glucose 150 H 102 H Estimat Average Glucose Hemoglobin A1c POC Lactic Acid Femi Calcium Magnesium Total Bilirubin AST ALT Alkaline Phosphatase Troponin I NT-Pro-B Natriuret Pep Total Protein Albumin Globulin Albumin/Globulin Ratio Lipase TSH Medications Administered Current Inpatient Medications Acetaminophen (Tylenol) 650 mg PO Q4H PRN PRN Reason: Pain or Fever Stop: 03/27/19 00:51 Last Admin: 02/25/19 16:26 Dose: 650 mg Documented by: Al Hydrox/Mg Hydrox/Simethicone (Maalox) 15 ml PO Q4H PRN PRN Reason: Dyspepsia Stop: 03/27/19 00:51 Dextrose (Dextrose 50%) 25 - 50 ml IV UD PRN; Protocol PRN Reason: Hypoglycemia Protocol Stop: 03/27/19 00:51 Donepezil HCl (Aricept) 10 mg PO HS PHOEBE Stop: 03/27/19 20:59 Glucagon (Glucagen) 1 mg SQ UD PRN; Protocol PRN Reason: Hypoglycemia Protocol Stop: 03/27/19 00:51 Glucose (Glucose 40%) 15 - 30 gm PO UD PRN; Protocol PRN Reason: Hypoglycemia Protocol Stop: 03/27/19 00:51 Glucose (Dex4 Glucose) 4 - 8 tabs PO UD PRN; Protocol PRN Reason: Hypoglycemia Protocol Stop: 03/27/19 00:51 Heparin Sodium (Porcine) (Heparin Sodium (Porcine)) 5,000 units SQ Q12 PHOEBE Stop: 03/27/19 08:59 Last Admin: 02/25/19 08:39 Dose: 5,000 units Documented by: Potassium Chloride/Sodium Chloride (Normal Saline W/20 Meq Kcl) 20 meq in 1,000 mls @ 80 mls/hr IV .[id number] [facility] Stop: 03/27/19 02:44 Last Admin: 02/25/19 17:27 Dose: 80 mls/hr Documented by: Ceftriaxone Sodium 2,000 mg/ (Dextrose) 70 mls @ 100 mls/hr IV Q24H PHOEBE; Protocol Stop: 03/07/19 03:59 Last Infusion: 02/25/19 04:08 Dose: Infused Documented by: Insulin Aspart (Novolog Flexpen) 0 units SC ACHS PHOEBE Stop: 03/27/19 07:29 Last Admin: 02/25/19 17:16 Dose: 5 units Documented by: Magnesium Hydroxide (Milk Of Magnesia) 30 ml PO Q12H PRN PRN Reason: Constipation Stop: 03/27/19 00:51 Miscellaneous (Carbohydrates For Hypoglycemia) 15 - 30 gm PO UD PRN PRN Reason: Hypoglycemia Treatment Stop: 03/27/19 00:51 Multivitamins (Multivitamin Tab) 1 tab PO DAILY PHOEBE Stop: 03/27/19 08:59 Last Admin: 02/25/19 08:39 Dose: 1 tab Documented by: Multivitamins/Minerals (Caltrate Plus) 1 tab PO DAILY PHOEBE Stop: 03/27/19 08:59 Last Admin: 02/25/19 08:39 Dose: 1 tab Documented by: Ondansetron HCl (Zofran) 4 mg IV Q6H PRN PRN Reason: Nausea Stop: 03/27/19 00:51 Simvastatin (Zocor) 20 mg PO QPM PHOEBE Stop: 03/27/19 20:59 Tolterodine Tartrate (Detrol La) 4 mg PO DAILY PHOEBE Stop: 03/27/19 08:59 Last Admin: 02/25/19 08:39 Dose: 4 mg Documented by: Vitamin B Complex (Vitamin B Complex) 1 tab PO DAILY PHOEBE Stop: 03/27/19 08:59 Last Admin: 02/25/19 08:39 Dose: 1 tab Documented by: Vitamin D (Vitamin D3) 2,000 units PO DAILY PHOEBE Stop: 03/27/19 08:59 Last Admin: 02/25/19 08:40 Dose: 2,000 units Documented by: PG Care Time/CCT Total # of Minutes Spent Total Time Spent with Patient: Total time spent is greater than 50% in coordination of care (as documented) at patient's floor/unit and/or counseling patient: (1) Fall Encounter type: initial encounter Qualified Code(s): W19.XXXA - Unspecified fall, initial encounter
[2019-02-25] MEDS: SIMVASTATIN 20 MG TAB PO SCH (20:40)
[2019-02-25] MEDS: DONEPEZIL HCL 10 MG TAB PO SCH (20:40)
[2019-02-26] MEDS: cefTRIAXone SODIUM 2,000 MG in DEXTROSE 5% 50 ML IV SCH (04:06)
[2019-02-26] MEDS: NSS + 20MEQ KCL 20 MEQ/1,000 ML BAG IV SCH (06:00)
[2019-02-26 07:24] LABS: Hematocrit (blood only) 37.9 % (37-47); Hemoglobin 13.4 g/dL (12.0-16.0); Mean Corpuscular Hgb Conc 35.4 g/dL (32-36); Mean Corpuscular Volume 90.9 fL (80-100); Mean Platelet Volume 9.6 fL (7.4-10.4); Platelet Count 183 K/uL (130-400); RDW Coefficient of Variation 13.3 % (11.5-14.5); RDW Standard Deviation 44.4 fL (36.4-46.3); Red Blood Count 4.17 M/uL (4.2-5.4); White Blood Count 5.28 K/uL (4.8-10.8)
[2019-02-26 08:05] LABS: BUN Creatinine Ratio 18.9 (10-20); Calcium 9.3 mg/dl (8.5-10.1); Creatinine Clr Calc Pharmacy 66.7 ml/min; Est GFR (African American) 90.4
[2019-02-26] MEDS: CHOLECALCIFEROL 1,000 UNITS TAB PO SCH (08:34)
[2019-02-26] MEDS: TOLTERODINE TARTRATE LA 4 MG CAPCR PO SCH (08:35)
[2019-02-26] MEDS: VITAMIN B COMPLEX TAB PO SCH (08:35)
[2019-02-26] MEDS: MULTIVITAMIN TAB PO SCH (08:35)
[2019-02-26] MEDS: CALCIUM 600MG + VIT D 400 IU TAB PO SCH (08:35)
[2019-02-26] MEDS: ACETAMINOPHEN 325 MG TAB PO PRN (08:37)
[2019-02-26] MEDS: HEPARIN SOD 5,000 UNIT/0.5 ML VIAL SQ SCH ×2 (08:38→20:52)
[2019-02-26] MEDS: INSULIN ASPART 100 UNITS/ML 3 ML PEN SC SCH ×4 (08:39→20:53)
--- NOTE | 2019-02-26 11:33 | Hospitalist Progress Note ---
Date of Service February 26, 2019 Assessment & Plan (1) Acute UTI: Follow urine culture and sensitivity -- E coli, pansensitive continue on Ceftriaxone while admitted, taper to PO antibiotics on discharge likely on Keflex on discharge complete 10 days total (2) Acute confusion: Metabolic encephalopathy secondary to acute UTI and dehydration. she is much better for two days, back to baseline stop IV fluids this morning, encourage PO fluid intake, continue abx (3) Dehydration: Rehydrating with NSS at 200 mils per hour in the ED, will continue with NSS + KCl 20 mEq at 80 mils per hour. stop fluids this AM educated patient on importance of drinking more (4) Cognitive impairment: Cognitive impairment/dementia continue donepezil 10 mg at bedtime pleasant and cooperative (5) Type 2 diabetes mellitus: Hold glimeperide Patient Accu-Cheks before meals and at bedtime with NovoLog coverage per scale monitor for hypoglycemia, no episodes (6) Hyperlipidemia: Continue simvastatin 20 mg at bedtime (7) Urinary urgency: Urge incontinence/bladder spasm- Continue tolterodine ER 4 mg daily (8) Fall: Patient has had 3 falls, 2 in the past day, Likely secondary to generalized weakness associated with UTI. She does use a walker, and would likely benefit from PT/ OT assessment prior to discharge PT/OT to see today, will see if she needs rehab she lives independently by herself at baseline plan to go to either rehab or home with home health, medically ready tomorrow Subjective patient feeling well this morning, trying to drink more fluids she ate her breakfast planning on participating in therapy today reviewed labs, WBC normal, Cr and electrolytes stable discussed with CM, will look to send home tomorrow with home therapy/health may need rehab, will follow up on therapy notes Review of Systems Review of Systems: All systems reviewed & are unremarkable except as noted in HPI & below Constitutional: + weakness; no fever, no chills and no fatigue Musculoskeletal: + muscle weakness (generalized) Physical Exam Constitutional: WD/WN, vitals as above Eyes: PERRL, conjunctivae normal, anicteric sclerae ENMT: external ear and nose normal, oropharynx normal Neck: trachea midline, no thyromegaly Respiratory: normal respiratory effort, lungs clear to auscultation Cardiovascular: RRR, no murmur, no edema Gastrointestinal (Abdomen): normal bowel sounds, soft, nontender, no hepatosplenomegaly Musculoskeletal: no cyanosis or clubbing, extremities motor strength 5/5 Skin: no rashes, warm and dry Neurologic: patellar DTR's 2+ bilat, sensation intact and PERRL, EOMI, accommodation nl, no face palsy, no dysarthria Psychiatric: A+Ox3, euthymic affect Lymphatic: no cervical or axillary lymphadenopathy Results & Data Vital Signs (Past 12 Hours) Vital Signs Temp Pulse Pulse Resp BP BP Pulse Ox 02/26/19 11:22 37.0 C 50 L 18 146/78 H 94 02/26/19 07:55 54 L 02/26/19 07:25 36.9 C 66 18 136/77 94 02/26/19 03:47 37.0 C 54 L 18 150/77 H 95 02/25/19 23:35 59 L Laboratory Results Laboratory Results - last 24 hr 02/25/19 02/25/19 02/25/19 11:46 16:30 20:09 WBC RBC Hgb Hct MCV MCH MCHC RDW Std Deviation RDW Coeff of Junie Plt Count MPV Sodium Potassium Chloride Carbon Dioxide Anion Gap BUN Creatinine Est Cr Clr Drug Dosing Est GFR ( Amer) Est GFR (Non-Af Amer) BUN/Creatinine Ratio Glucose POC Glucose 150 H 102 H 102 H Calcium 02/26/19 02/26/19 02/26/19 07:11 07:11 07:40 WBC 5.28 RBC 4.17 L Hgb 13.4 Hct 37.9 MCV 90.9 MCH 32.1 MCHC 35.4 RDW Std Deviation 44.4 RDW Coeff of Junie 13.3 Plt Count 183 MPV 9.6 Sodium 140 Potassium 4.0 Chloride 110 H Carbon Dioxide 26 Anion Gap 4.0 BUN 14 Creatinine 0.72 Est Cr Clr Drug Dosing 66.7 Est GFR ( Amer) 90.4 Est GFR (Non-Af Amer) 78.0 BUN/Creatinine Ratio 18.9 Glucose 124 H POC Glucose 130 H Calcium 9.3 Medications Administered Current Inpatient Medications Acetaminophen (Tylenol) 650 mg PO Q4H PRN PRN Reason: Pain or Fever Stop: 03/27/19 00:51 Last Admin: 02/26/19 08:37 Dose: 650 mg Documented by: Al Hydrox/Mg Hydrox/Simethicone (Maalox) 15 ml PO Q4H PRN PRN Reason: Dyspepsia Stop: 03/27/19 00:51 Dextrose (Dextrose 50%) 25 - 50 ml IV UD PRN; Protocol PRN Reason: Hypoglycemia Protocol Stop: 03/27/19 00:51 Donepezil HCl (Aricept) 10 mg PO HS PHOEBE Stop: 03/27/19 20:59 Last Admin: 02/25/19 20:40 Dose: 10 mg Documented by: Glucagon (Glucagen) 1 mg SQ UD PRN; Protocol PRN Reason: Hypoglycemia Protocol Stop: 03/27/19 00:51 Glucose (Glucose 40%) 15 - 30 gm PO UD PRN; Protocol PRN Reason: Hypoglycemia Protocol Stop: 03/27/19 00:51 Glucose (Dex4 Glucose) 4 - 8 tabs PO UD PRN; Protocol PRN Reason: Hypoglycemia Protocol Stop: 03/27/19 00:51 Heparin Sodium (Porcine) (Heparin Sodium (Porcine)) 5,000 units SQ Q12 PHOEBE Stop: 03/27/19 08:59 Last Admin: 02/26/19 08:38 Dose: 5,000 units Documented by: Ceftriaxone Sodium 2,000 mg/ (Dextrose) 70 mls @ 100 mls/hr IV Q24H PHOEBE; Protocol Stop: 03/07/19 03:59 Last Infusion: 02/26/19 04:48 Dose: Infused Documented by: Insulin Aspart (Novolog Flexpen) 0 units SC ACHS PHOEBE Stop: 03/27/19 07:29 Last Admin: 02/26/19 08:39 Dose: 5 units Documented by: Magnesium Hydroxide (Milk Of Magnesia) 30 ml PO Q12H PRN PRN Reason: Constipation Stop: 03/27/19 00:51 Miscellaneous (Carbohydrates For Hypoglycemia) 15 - 30 gm PO UD PRN PRN Reason: Hypoglycemia Treatment Stop: 03/27/19 00:51 Multivitamins (Multivitamin Tab) 1 tab PO DAILY PHOEBE Stop: 03/27/19 08:59 Last Admin: 02/26/19 08:35 Dose: 1 tab Documented by: Multivitamins/Minerals (Caltrate Plus) 1 tab PO DAILY [facility] Stop: 03/27/19 08:59 Last Admin: 02/26/19 08:35 Dose: 1 tab Documented by: Ondansetron HCl (Zofran) 4 mg IV Q6H PRN PRN Reason: Nausea Stop: 03/27/19 00:51 Simvastatin (Zocor) 20 mg PO QPM PHOEBE Stop: 03/27/19 20:59 Last Admin: 02/25/19 20:40 Dose: 20 mg Documented by: Tolterodine Tartrate (Detrol La) 4 mg PO DAILY [facility]OEBE Stop: 03/27/19 08:59 Last Admin: 02/26/19 08:35 Dose: 4 mg Documented by: Vitamin B Complex (Vitamin B Complex) 1 tab PO DAILY [facility]OEBE Stop: 03/27/19 08:59 Last Admin: 02/26/19 08:35 Dose: 1 tab Documented by: Vitamin D (Vitamin D3) 2,000 units PO DAILY PHOEBE Stop: 03/27/19 08:59 Last Admin: 02/26/19 08:34 Dose: 2,000 units Documented by: PG Care Time/CCT Total # of Minutes Spent Total Time Spent with Patient: Total time spent is greater than 50% in coordination of care (as documented) at patient's floor/unit and/or counseling patient: (1) Fall Encounter type: initial encounter Qualified Code(s): W19.XXXA - Unspecified fall, initial encounter
[2019-02-26] MEDS: DONEPEZIL HCL 10 MG TAB PO SCH (20:52)
[2019-02-26] MEDS: SIMVASTATIN 20 MG TAB PO SCH (20:55)
[2019-02-27] MEDS: cefTRIAXone SODIUM 2,000 MG in DEXTROSE 5% 50 ML IV SCH (04:34)
[2019-02-27] MEDS: CALCIUM 600MG + VIT D 400 IU TAB PO SCH (07:40)
[2019-02-27] MEDS: VITAMIN B COMPLEX TAB PO SCH (07:46)
[2019-02-27] MEDS: HEPARIN SOD 5,000 UNIT/0.5 ML VIAL SQ SCH (07:46)
[2019-02-27] MEDS: TOLTERODINE TARTRATE LA 4 MG CAPCR PO SCH (07:46)
[2019-02-27] MEDS: MULTIVITAMIN TAB PO SCH (07:46)
[2019-02-27] MEDS: CHOLECALCIFEROL 1,000 UNITS TAB PO SCH (07:47)
[2019-02-27] MEDS: INSULIN ASPART 100 UNITS/ML 3 ML PEN SC SCH (09:04)
--- NOTE | 2019-02-27 10:03 | Discharge Summary ---
Date of Service February 27, 2019 Admission HPI Per Admitting Provider The patient is a an 83-year-old female with past medical history including hyperlipidemia, diabetes mellitus and dementia, who presents to the ED with 3 reported falls in the past 3 days, 2 of them happening in the day of arrival. Her family reports that she has been more confused, with worsening memory loss, and also note had been started on an antibiotic Ceftin ear for UTI she was diagnosed with the previous day. The patient reports increased urinary frequency, and has been drinking less water lately, so that she does not have to run to the bathroom so much. Her UTI yesterday was diagnosed at the ED, after she felt unwell at the [facility]. She does have a history of recurrent urinary tract infections. Admission Exam Per Admitting Provider The patient is awake, alert and oriented 3, well developed and well nourished, normocephalic and atraumatic, lying in bed and in no acute distress. HEENT--PERRL, EOMI, mucous membranes and oropharynx dry. Neck--supple. No JVD. No bruits. Thyroid normal, trachea midline, no adenopathy. Heart--normal S1 and S2. No murmurs, rubs or gallops. Lungs--clear bilaterally, no respiratory distress, no accessory muscle use. Abdomen--normal bowel sounds and soft. Nontender. Nondistended. Extremities--no cyanosis or clubbing. No edema. There are good distal pulses b/l. Dermatologic--normal skin turgor, normal color, no abnormal lymph nodes, no rash. Neurologic--cranial nerves II through XII grossly intact. Rheumatologic--normal range of motion. Psychiatric--normal affect. Family reports the patient is significantly better after having received IV fluids in the ED Principal Diagnosis UTI, E coli Discharge Exam Constitutional WD/WN, vitals as above Eyes PERRL, conjunctivae normal, anicteric sclerae ENMT external ear and nose normal, oropharynx normal Neck trachea midline, no thyromegaly Respiratory normal respiratory effort, lungs clear to auscultation Cardiovascular RRR, no murmur, no edema Gastrointestinal (Abdomen) normal bowel sounds, soft, nontender, no hepatosplenomegaly Musculoskeletal no cyanosis or clubbing, extremities motor strength 5/5 Skin no rashes, warm and dry Neurologic patellar DTR's 2+ bilat, sensation intact and PERRL, EOMI, accommodation nl, no face palsy, no dysarthria Psychiatric A+Ox3, euthymic affect Lymphatic no cervical or axillary lymphadenopathy Discharge Data Allergies Allergy/AdvReac Type Severity Reaction Status Date / Time adhesive Allergy Unknown SKIN Verified 02/24/19 20:54 BLISTERS tetanus toxoid, adsorbed Allergy Unknown EDEMA AT Verified 02/24/19 20:54 SITE codeine AdvReac Unknown HEART Verified 02/24/19 20:54 PALPITATIONS, RECIEVED MORPHINE IV IN 2004 ADMIT Consultations 02/24/19 23:00 ED Decision to Admit Stat 02/25/19 00:52 Consult Case Management - Discharge Planning Routine Hospital Course (1) Acute UTI: Follow urine culture and sensitivity -- E coli, pansensitive treated with Ceftriaxone while admitted, taper to PO antibiotics on discharge Keflex 500mg BID x 7 more days follow up with Dr. Drake on 03/05 (2) Acute confusion: Metabolic encephalopathy secondary to acute UTI and dehydration. she is much better for three days, back to baseline stopped IV fluids on 02/26, encourage PO fluid intake, continue abx (3) Dehydration: Rehydrating with NSS at 200 mils per hour in the ED, will continue with NSS + KCl 20 mEq at 80 mils per hour. stopped fluids in AM on 02/26 educated patient on importance of drinking more, recommend drinking 1.5-2.0 liters of fluids a day (4) Cognitive impairment: Cognitive impairment/dementia continue donepezil 10 mg at bedtime pleasant and cooperative (5) Type 2 diabetes mellitus: Hold glimeperide Patient Accu-Cheks before meals and at bedtime with NovoLog coverage per scale monitor for hypoglycemia, no episodes resume glimeperide on discharge (6) Hyperlipidemia: Continue simvastatin 20 mg at bedtime (7) Urinary urgency: Urge incontinence/bladder spasm- Continue tolterodine ER 4 mg daily (8) Fall: Patient has had 3 falls, 2 in the past day, Likely secondary to generalized weakness associated with UTI. She does use a walker, and would likely benefit from PT/ OT assessment prior to discharge PT/OT evaluated patient on 02/26, she did very well, walked 1000ft they recommend using rolling walker, right knee brace as needed d/c to home with home health, home therapy evals Total Time Total Time Spent Total Time Spent (In Minutes): 33 minutes Total Time Includes: Examination of the Patient, Discharge Planning and Medication Reconciliation Discharge Plan Discharge Items Patient Disposition: Home - Home Health Services Reason For Visit: CONFUSION, UTI Discharge Diagnosis: UTI, E coli Dehydration Metabolic encephalopathy Condition: Good Discharge Goals: Improve disease control and Improve function Activity: Resume your previous activity Non-emergency contact: Primary Care Provider Call non-emergency contact if: you have any medication questions, your symptoms worsen and you have a fever Follow-up/Referrals: Aniket Drake MD [Primary Care Provider] - 03/05/19 10:30 am (Please, follow up with Dr. Aniket Drake on March 05 at 10:30 am. *If you need to change this appointment, call the office at [phone].) Diet: Carb Consistent or DM2 Addtl Provider Instructions: Medications: - CEPHALEXIN: take twice a day for 7 more days to complete treatment of UTI UTI, E coli, valentine sensitive responded well to Rocephin IV while admitted, transition to cephalexin for 7 more days, next dose due tomorrow morning Dehydration: most improvement in clinical status happened after IV fluids you need to make an effort to drink more water, more fluids in general you should drink at least 1500mL to 2000mL a day, this is equivalent to 3-4 of the water mugs that you use in the hospital in patient's your age you need to make a conscious effort, consider it to be like taking a medication Weakness and falls: evaluated by physical and occupational therapy you did really well, walked 1000 feet they recommend using your rolling walker at all times and you should use your right knee brace, especially when walking far distances FOLLOW UP - Dr. Drake on 03/05 Prescriptions: New cephalexin 500 mg capsule 500 mg PO BID 7 Days Qty: 14 RF: 0 Continued celecoxib [Celebrex] 200 mg capsule 200 mg PO DAILY Qty: 30 RF: 1 tramadol 50 mg tablet 50 mg PO DAILY Qty: 30 RF: 0 calcium carbonate [Calcium 600] 600 mg calcium (1,500 mg) tablet 600 mg PO DAILY RF: 0 coenzyme Q10 10 mg capsule 10 mg PO DAILY RF: 0 donepezil 10 mg tablet 10 mg PO HS Qty: 30 RF: 0 omega-3 acid ethyl esters 1 gram capsule 2 cap PO DAILY RF: 0 glimepiride 2 mg tablet 4 mg PO DAILY Qty: 180 RF: 0 multivitamin [Daily Multi-Vitamin] tablet 1 tab PO DAILY RF: 0 simvastatin 20 mg tablet 20 mg PO QPM Qty: 90 RF: 0 vitamin B complex tablet 1 tab PO DAILY RF: 0 tolterodine 4 mg capsule,extended release 24hr 4 mg PO DAILY Qty: 90 RF: 0 cholecalciferol (vitamin D3) 2,000 unit capsule 2,000 units PO DAILY RF: 0 Discontinued cefdinir 300 mg capsule 300 mg PO BID 5 Days Qty: 10 RF: 0 Stand-Alone Forms: [facility] Discharge Orders: Discharge Order (Routine); Ordered 02/27/19 Ordered By: Frandy Daugherty Admission Data Admit Date/Time: 02/24/19 23:49 Attending Provider: Frandy Daugherty Admit Provider: Rashel Cordova Primary Care Provider: Aniket Drake Other Providers: Rashel Cordova Service: Telemetry Medical Other Interventions: Discharge Summary Assessment (RN) Last Done: 02/27/19 09:42
== END 2019-02-27 10:32 | disposition home health service (06) | DRG 689 ==
LOC: ED 19:45 → 2N 23:49 → SUATTDRO 23:49 → 2N 02-25 00:18

== ENCOUNTER 2019-06-15 09:31 | Inpatient (IN) ==
[2019-06-15] MEDS ORDERED: SODIUM CHLORIDE 0.9% 1000ML 1,000 ML IV SCH (10:30)
[2019-06-15 10:35] LABS: Hematocrit (blood only) 47.3 % (37-47); Hemoglobin 16.4 g/dL (12.0-16.0); Mean Corpuscular Hemoglobin 31.7 pg (25-34); Mean Corpuscular Hgb Conc 34.7 g/dL (32-36); Mean Corpuscular Volume 91.5 fL (80-100); Mean Platelet Volume 10.6 fL (7.4-10.4); Platelet Count 191 K/uL (130-400); RDW Coefficient of Variation 13.5 % (11.5-14.5); RDW Standard Deviation 45.2 fL (36.4-46.3); Red Blood Count 5.17 M/uL (4.2-5.4); White Blood Count 33.29 K/uL (4.8-10.8)
[2019-06-15 10:39] LABS: INR 1.1 (0.9-1.1); Partial Thromboplastin Time 27.3 Seconds (21.0-31.0); Prothrombin Time 11.5 Seconds (9.0-12.0)
[2019-06-15 10:43] LABS: Albumin Level 3.3 gm/dl (3.4-5.0); BUN Creatinine Ratio 38.2 (10-20); Bilirubin,Total 1.3 mg/dl (0.2-1); Calcium 10.7 mg/dl (8.5-10.1); Globulin 4.4 gm/dl (2.5-4.0); Potassium 3.1 mmol/L (3.5-5.1); Total Protein 7.7 gm/dl (6.4-8.2)
[2019-06-15 10:49] LABS: Basophils # (auto) 0.03 K/uL (0-0.2); Basophils % (auto) 0.1 %; Eosinophils # (auto) 0.02 K/uL (0-0.5); Eosinophils % (auto) 0.1 %; Immature Granulocytes # (auto) 0.36 K/uL (0.00-0.02); Immature Granulocytes % (auto) 1.1 %; Lymphocytes % (auto) 1.2 %; Monocytes # (auto) 0.96 K/uL (0.11-0.59); Monocytes % (auto) 2.9 %; Neutrophils # (auto) 31.52 K/uL (1.4-6.5); Neutrophils % (auto) 94.6 %
[2019-06-15] MEDS ORDERED: VANCOMYCIN HCL 2,000 MG in SODIUM CHLORIDE 0.9% 500 ML IV ONE (10:54)
[2019-06-15] MEDS ORDERED: PIPERACILLIN/TAZOBACTAM 4.5 GM/120 ML BAG IV ONE (10:54)
[2019-06-15] MEDS ORDERED: VANCOMYCIN CONSULT ACTIVE PRN (10:54)
[2019-06-15] MEDS ORDERED: PIPERACILL/TAZOBAC CONSULT ACTIVE PRN (10:54)
--- NOTE | 2019-06-15 11:00 | CT Scan Report ---
CT cervical spine wo con CT DOSE: HISTORY: Trauma. Mental status change. s/p found on ground since saturday TECHNIQUE: Multiaxial CT images of the cervical spine were performed and reformatted in the sagittal and coronal plane without the use of contrast. A dose lowering technique was utilized adhering to th e principles of ALARA. COMPARISON: None. FINDINGS: No fractures. No subluxation. Prevertebral soft tissues and the C1-C2 interval are intact. No pneumothorax. Moderate degenerative disc changes of the mid to lower cervical region. No evidence for an acute compression deformity. IMPRESSION: No acute process. Moderate degenerative change. The above report was generated using voice recognition software. It may contain grammatical, syntax or spelling errors. Electronically signed by: Jude Kendall M.D. 06/15/2019 10:59 AM
--- NOTE | 2019-06-15 11:05 | CT Scan Report ---
CT OF THE HEAD WITHOUT CONTRAST CLINICAL HISTORY: s/p found on ground since Saturday COMPARISON STUDY: Head CT February 23, 2019. CT DOSE: 995.63 mGy.cm TECHNIQUE: Helical axial images of the head were obtained without IV contrast. Automated exposure con trol was utilized for the study. A dose lowering technique was utilized adhering to the principles o f ALARA. FINDINGS: No acute intracranial hemorrhage, midline shift or mass effect is present. The ventricular system is stable. Mild ventricular dilatation is unchanged and likely due to atrophy. Basilar cistern s are patent. There are no extra axial collections. White matter hypodensity suggests small vessel di sease. There are no findings to suggest acute dural sinus thrombosis or acute territorial infarct. Th e appearance of the brain is unchanged. There is no calvarial fracture. IMPRESSION: 1. No acute intracranial findings. 2. No calvarial fracture. Electronically signed by: Enrrique Johns M.D. 06/15/2019 11:04 AM
[2019-06-15 11:06] LABS: Beta-Hydroxybutyrate 22.37 mg/dl (0.2-2.81)
[2019-06-15 11:28] LABS: Creatinine Clr Calc Pharmacy 29.9 ml/min; Est GFR (African American) 35.8; Est GFR (Non-African American) 30.9
[2019-06-15 11:29] LABS: Albumin Globulin Ratio 0.7 (0.9-2)
[2019-06-15] MEDS ORDERED: SODIUM CHLORIDE 0.9% 1000ML 1,000 ML IV ONE (11:47)
--- NOTE | 2019-06-15 12:10 | CT Scan Report ---
CT abd pelvis wo con CLINICAL HISTORY: 84 years-old Female presenting with WBC 30K, found down, dementia. TECHNIQUE: Multidetector CT of the abdomen and pelvis was performed without the use of intravenous co ntrast. IV contrast: None. One or more dose lowering techniques were used consistent with the princip les of ALA (as low as reasonably achievable), including automatic exposure control, mA or kV adjust ment to individual patient size, and/or use of iterative reconstruction. COMPARISON: 08/19/2013. CT DOSE (mGy.cm): The estimated cumulative dose is 932.20 mGy.cm. FINDINGS: Partridge Farmer topogram: Cholecystectomy clips. Lung bases: Normal heart size. Coronary artery and aortic valve calcification. No pericardial or pleu ral effusion. Minimal dependent changes likely atelectasis. Liver: Normal morphology. Normal density. Biliary: Mild biliary ductal prominence likely a reservoir effect in the post cholecystectomy state. Gallbladder surgically absent. Pancreas: Mild parenchymal atrophy. Spleen: Normal noncontrast appearance. Adrenal glands: Normal noncontrast appearance. Kidneys and ureters: Moderate pelvocaliectasis and distention of the left kidney with an obstructing 6 mm calculus in the proximal left ureter. Mild urothelial thickening on the left. Asymmetric left pe rinephric fat infiltration. Dominant cyst noted in the right kidney, which is grossly simple appearin g. No additional renal calculi are evident in either kidney. Right ureter nondistended. Bladder: Decompressed with a Gloria catheter. Pelvic organs: Uterus surgically absent. Bowel: Normal noncontrast appearance. No bowel obstruction. Trace sliding type hiatal hernia. Peritoneal cavity: No free fluid or intraperitoneal gas. Lymph nodes: No gross lymphadenopathy allowing for noncontrast technique. Vasculature: Normal noncontrast appearance. Abdominal wall: Normal. Musculoskeletal: Degenerative changes of the spine. Osteopenia may be present. IMPRESSION: 1. Moderate left hydronephrosis with an obstructing 6 mm proximal left ureteral calculus. 2. Allowing for noncontrast technique, no acute intra-abdominal injury. Electronically signed by: Aniket Valdez M.D. 06/15/2019 12:08 PM
[2019-06-15] MEDS ORDERED: POTASSIUM PHOS 3 MMOL/1 ML INFUSION IV STA ×2 (12:21→19:54)
[2019-06-15 12:30] LABS: Appearance Urine Cloudy (Clear); Bacteria Urine Automated 4+ (Negative); Blood Urine 2+ (Negative); Color Urine Dark Yellow; Glucose Urine UA Negative (Negative); Ketones Urine 2+ (Negative); Leukocyte Esterase Urine 1+ (Negative); Nitrite Urine Positive (Negative); Protein Urine 2+ (Negative); RBC Urine Automated 0-4 /hpf (0-4); Specific Gravity Urine 1.024 (1.000-1.030); Urobilinogen Urine Negative (Negative); pH Urine 5.5 (4.5-7.5)
--- NOTE | 2019-06-15 12:30 | XRay Report ---
XR chest 1V portable CLINICAL HISTORY: Sepsis dyspnea COMPARISON STUDY: 02/23/2019 FINDINGS: Mild stable cardiac enlargement. The lungs are clear. Unchanged postoperative changes left humerus. IMPRESSION: Chronic and postoperative change. No acute process. The above report was generated using voice recognition software. It may contain grammatical, syntax or spelling errors. Electronically signed by: Jude Kendall M.D. 06/15/2019 12:29 PM
--- NOTE | 2019-06-15 12:31 | XRay Report ---
XR shoulder LT min 2V routine CLINICAL HISTORY: Left shoulder pain following fall. COMPARISON: Left humerus radiographs November 13, 2015. Left shoulder fluoroscopic images November 15, 2015. FINDINGS: A left humeral internal fixation is noted. There is a healed diaphyseal fracture of the le ft humerus. Hardware is intact. There is no acute fracture within the left shoulder. 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 There is mild glenohumeral joint osteoarthritis . IMPRESSION: 1. No acute fracture or dislocation within the left shoulder. 2. Expected findings following left humeral internal fixation. Hardware intact. Healed fracture. Electronically signed by: Enrrique Johns M.D. 06/15/2019 12:29 PM
[2019-06-15] MEDS ORDERED: POTASSIUM PHOSPHATE 9 MMOL in SODIUM CHLORIDE 0.9% 250 ML IV ONE (12:45)
[2019-06-15 12:47] LABS: Bilirubin Urine Negative (Negative); Ictotest Urine Negative (Negative)
--- NOTE | 2019-06-15 13:33 | Urology Consultation ---
Date of Consultation June 15, 2019 Assessment & Plan (1) Ureterolithiasis: (2) UTI (urinary tract infection): 84yo F with sepsis, left ureteral stone with moderate hydronephrosis Pt evaluated by Dr. Mendez, family at bedside. Findings reviewed with Dr. Mendez. Given her sepsis the context of an obstructing left ureteral stone, will proceed with OR for emergent cystoscopy, Left retrograde pyelogram and Left stent placement. Risks and benefits reviewed by Dr. Mendez. OR notified. Preoperative CXR and EKG done. Pt receiving zosyn and vancomycin IV per ER. Plan to admit to hospitalist following procedure today. Thank you for the consultation. History of Present Illness Reason for Consultation: septic stone Requesting Physician: Dr. Burger Attending Physician: Dr. Burger History of Present Illness 84yo F admitted through [facility] after being found down by family today. She has possibly been down since Saturday. Pt is oriented to self and place, but with some confusion and definite weakness. Complains of chills, visible rigor. Pt denies any pain or difficulty with urination. Pt denies any history of kidney stones or other issues. HPI is limited due to patients clear somnolence and weakness. Son, Kavon, at bedside. Chart review - CT reveals 6mm left midureteral stone with moderat hydronephrosis. Pt meets sepsis criteria, tachycardic with WBC >30,000cfu. Confusion, weakness, chills. Cr 1.5 UA nitrite positive, very cloudy Allergies Allergy/AdvReac Type Severity Reaction Status Date / Time adhesive Allergy Unknown SKIN Verified 06/15/19 11:03 BLISTERS tetanus toxoid, adsorbed Allergy Unknown EDEMA AT Verified 06/15/19 11:03 SITE codeine AdvReac Unknown HEART Verified 06/15/19 11:03 PALPITATIONS, RECIEVED MORPHINE IV IN 2004 ADMIT Home Medications Home Medications Medication Instructions Recorded Confirmed Type calcium carbonate 600 mg calcium 600 mg PO QAM tab 01/01/19 06/15/19 History (1,500 mg) tablet cholecalciferol (vitamin D3) 50 2,000 units PO QAM cap 01/01/19 06/15/19 History mcg (2,000 unit) capsule coenzyme Q10 10 10 mg capsule 10 mg PO DAILY cap 01/01/19 06/15/19 History glimepiride 2 mg tablet 4 mg PO DAILY #180 tab 01/01/19 06/15/19 History multivitamin 1 tab PO DAILY 01/01/19 06/15/19 History omega-3 acid ethyl esters 1 gram 2 cap PO QAM cap 01/01/19 06/15/19 History capsule tolterodine 4 mg capsule,extended 4 mg PO DAILY #90 cap 01/01/19 06/15/19 History release 24 hr vitamin B complex 1 tab PO DAILY 01/01/19 06/15/19 History celecoxib [Celebrex] 200 mg PO QAM 06/15/19 06/15/19 History donepezil 10 mg tablet See Rx Instructions .ROUTE 06/15/19 Rx .COMPLEX #90 tab psyllium husk [Metamucil] 0 g PO UD 06/15/19 06/15/19 History simvastatin 20 mg PO HS 06/15/19 06/15/19 History tramadol 50 mg PO QAM 06/15/19 06/15/19 History Patient History Medical History Abnormal finding on imaging Cognitive impairment (Chronic) Cyst of kidney, acquired Edema of left lower extremity Fatigue Gait instability Gastroesophageal reflux Hyperlipidemia Knee pain Laceration Memory loss, 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 Pain of right tibia Right knee pain Type 2 diabetes mellitus Urinary urgency Vitamin D deficiency Surgical History H/O: hysterectomy History of appendectomy Hx of knee surgery Family History Sister Diabetes Stroke Brother Diabetes Prostate cancer Father Lung disease Social History Preferred Language: Belarusian Communication Ability: Effective Solo Truck Driver Required: No Beliefs That Will Affect Care: None Current Living Situation: Alone Feels Safe at Home: Yes Smoking Status: Never smoker Hx Alcohol Use: Yes Alcohol type: wine Hx Substance Use: No caffeine: No Seatbelt Use: always Review of Systems Review of Systems: All systems reviewed & are unremarkable except as noted in HPI & below Physical Exam Constitutional: + ill appearing; no acute distress Eyes: no nystagmus ENMT: Ears: no hearing impairment Neck: trachea midline Respiratory: no respiratory distress and no cough Cardiovascular: Rate/Rhythm: + tachycardic; + abnormal rhythm Vessels: no JVD Chest (Breasts): Chest: normal inspection of chest Gastrointestinal (Abdomen): Inspection/Auscultation: abdomen not distended and no abdominal edema Percussion/Palpation: abdomen soft; abdomen nontender Musculoskeletal: Head/Neck/Chest: normocephalic and head atraumatic Skin: no rashes, warm and dry Neurologic: awake; not confused and not obtunded Psychiatric: Orientation: alert and oriented x 3 Eye Contact: good eye contact Affect: no depressed affect Lymphatic: no lymphadenopathy and no lymphedema Results & Data Vital Signs (Past 12 Hours) Vital Signs Temp Pulse Pulse Resp BP BP Pulse Ox 06/15/19 12:01 89 17 151/96 H 06/15/19 12:00 90 14 06/15/19 11:40 89 18 95 06/15/19 11:31 93 H 21 96 06/15/19 11:30 92 H 18 173/73 H 97 06/15/19 11:25 92 H 23 159/83 H 06/15/19 11:24 92 H 17 06/15/19 10:40 89 20 94 06/15/19 10:30 93 H 19 94 06/15/19 10:20 91 H 20 94 06/15/19 10:10 94 H 24 96 06/15/19 10:02 36.8 C 92 H 91 H 21 138/81 138/81 95 06/15/19 10:00 96 H 21 06/15/19 09:56 98 H 15 06/15/19 09:35 99 H 19 144/73 H PG Care Time/CCT Total # of Minutes Spent Total Time Spent with Patient: Total time spent is greater than 50% in coordination of care (as documented) at patient's floor/unit and/or counseling patient: (1) UTI (urinary tract infection) Hematuria presence: with hematuria Urinary tract infection type: site unspeci fied Qualified Code(s): N39.0 - Urinary tract infection, site not specified; R31.9 - Hematuria, unspecified
[2019-06-15] MEDS ORDERED: PROPOFOL IV EMULSION 10 MG/ML 20 ML VIAL IV ONE (14:00)
[2019-06-15] MEDS ORDERED: ONDANSETRON INJ 2 MG/ML 2 ML VIAL ONE (14:00)
[2019-06-15] MEDS ORDERED: fentaNYL citrate 100 MCG/2 ML VIAL ONE (14:00)
[2019-06-15] MEDS ORDERED: LIDOCAINE HCL 2% 2 ML VIAL/AMP(20MG/ML) INFIL ONE (14:00)
[2019-06-15] MEDS ORDERED: INSULIN ASPART PER UNIT SC STA (14:35)
[2019-06-15] MEDS ORDERED: INSULIN ASPART PER UNIT ONE (14:36)
[2019-06-15] MEDS ORDERED: dilTIAZem HCl 5 MG/ML 5 ML VIAL IV STA (14:37)
[2019-06-15] MEDS ORDERED: dilTIAZem HCL 125 MG in DEXTROSE 5% 100 ML IV SCH (14:45)
[2019-06-15] MEDS ORDERED: fentaNYL citrate 100 MCG/2 ML VIAL IV PRN (14:57)
[2019-06-15] MEDS ORDERED: ONDANSETRON INJ 2 MG/ML 2 ML VIAL IV PRN (14:57)
[2019-06-15] MEDS ORDERED: ePHEDrine sulfate 50 MG/ML AMP IV PRN ×2 (14:57→16:07)
[2019-06-15] MEDS ORDERED: ATROPINE SULFATE 0.1 MG/ML 10ML SYR IV PRN ×2 (14:57→16:07)
--- NOTE | 2019-06-15 14:57 | Anesthesiology Consultation ---
Date of Service June 15, 2019 AFib with RVR Alterered Mental Status Sepsis secondary to UTI Type II DM Assessment & Plan (1) Encounter for pre-operative examination: Tx with diltiazem gtt and insulin sq prior to OR. Will plan for ICU care after procedure. Chart Review Chart Review: Acceptable Risk for Surgery and Patient NOT seen in Pre Admission Testing Consults Requested none ASA [id number] Proposed Anesthesia Anesthesia Type: MAC (light sedation) Risk / Benefits Reviewed With: PT / POA / Parent / Guardian, Accepts Plan and Informed Consent Obtained History Surgery Operation Date: 06/15/19 15:50 Proposed Procedures p Cystoscopy, Left Retrograde; Stent Insertion - Christiano Mendez, Height/Weight Height: 5 ft 6 in Weight: 82 kg Allergies Allergy/AdvReac Type Severity Reaction Status Date / Time adhesive Allergy Unknown SKIN Verified 06/15/19 11:03 BLISTERS tetanus toxoid, adsorbed Allergy Unknown EDEMA AT Verified 06/15/19 11:03 SITE codeine AdvReac Unknown HEART Verified 06/15/19 11:03 PALPITATIONS, RECIEVED MORPHINE IV IN 2004 ADMIT Medications Home Medications Medication Instructions Recorded Confirmed Last Taken calcium carbonate 600 mg calcium 600 mg PO QAM tab 01/01/19 06/15/19 02/24/19 (1,500 mg) tablet cholecalciferol (vitamin D3) 50 2,000 units PO QAM cap 01/01/19 06/15/19 02/24/19 mcg (2,000 unit) capsule coenzyme Q10 10 10 mg capsule 10 mg PO DAILY cap 01/01/19 06/15/19 02/24/19 glimepiride 2 mg tablet 4 mg PO DAILY #180 tab 01/01/19 06/15/19 02/24/19 multivitamin 1 tab PO DAILY 01/01/19 06/15/19 02/24/19 omega-3 acid ethyl esters 1 gram 2 cap PO QAM cap 01/01/19 06/15/19 02/24/19 capsule tolterodine 4 mg capsule,extended 4 mg PO DAILY #90 cap 01/01/19 06/15/19 02/24/19 release 24 hr vitamin B complex 1 tab PO DAILY 01/01/19 06/15/19 02/24/19 celecoxib [Celebrex] 200 mg PO QAM 06/15/19 06/15/19 Unknown donepezil 10 mg tablet See Rx Instructions .ROUTE 06/15/19 Unknown .COMPLEX #90 tab psyllium husk [Metamucil] 0 g PO UD 06/15/19 06/15/19 Unknown simvastatin 20 mg PO HS 06/15/19 06/15/19 06/14/19 tramadol 50 mg PO QAM 06/15/19 06/15/19 Unknown Active Medications Generic Name Dose Route Start Last Admin Trade Name Freq PRN Reason Stop Dose Admin Potassium Phosphate 9 mmol/ 253 mls @ 88 mls/hr 06/15/19 12:45 06/15/19 13:13 Sodium Chloride IV 06/15/19 15:37 88 mls/hr ONE ONE Administration NPO Date Last Intake of Fluids: 06/12/19 Date Last Intake of Solids: 06/12/19 Past Medical History Medical History Abnormal finding on imaging Cognitive impairment (Chronic) Cyst of kidney, acquired Edema of left lower extremity Fatigue Gait instability Gastroesophageal reflux Hyperlipidemia Knee pain Laceration Memory loss, 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 Pain of right tibia Right knee pain Type 2 diabetes mellitus Urinary urgency Vitamin D deficiency Exercise / Class Metabolic Activity II 4-5 Yardwork/Stairs/Walk up hill Past Family History Family History Sister Diabetes Stroke Brother Diabetes Prostate cancer Father Lung disease Past Surgical History Surgical History H/O: hysterectomy History of appendectomy Hx of knee surgery Past Anesthesia History No Hx of Anesthesia Complications and No Family Hx of Anesthesia Complications History of PONV No Hx of PONV and No Hx of Motion Sickness Social History Smoking Status: Never smoker Hx Alcohol Use: Yes Alcohol type: wine alcohol intake frequency: holidays/special occasions only Hx Substance Use: No Physical Exam Vital Signs Last Vital Signs Temp 36.6 C 06/15/19 13:50 Pulse 136 H 06/15/19 13:50 Resp 22 06/15/19 13:50 BP 143/89 H 06/15/19 13:50 Pulse Ox 92 06/15/19 13:50 ENMT Mouth: no dentition abnormality Thyromental Distance: > or= 3.5 Finger Breadths Mallampati Class: II Neck normal visual inspection Respiratory normal respiratory effort Auscultation: lungs clear to auscultation bilaterally Cardiovascular Rate/Rhythm: regular rate and regular rhythm Psychiatric Orientation: alert Testing Laboratory Results 06/15/19 10:00 06/15/19 10:00 PT 11.5 Seconds (9.0-12.0) 06/15/19 10:00 INR 1.1 (0.9-1.1) 06/15/19 10:00 APTT 27.3 Seconds (21.0-31.0) 06/15/19 10:00 Urine Color Dark Yellow 06/15/19 11:15 Urine Appearance Cloudy (Clear) A 06/15/19 11:15 Urine pH 5.5 (4.5-7.5) 06/15/19 11:15 Ur Specific [place] 1.024 (1.000-1.030) 06/15/19 11:15 Urine Protein 2+ (Negative) H 06/15/19 11:15 Urine Glucose (UA) Negative (Negative) 06/15/19 11:15 Urine Ketones 2+ (Negative) H 06/15/19 11:15 Urine Nitrite Positive (Negative) A 06/15/19 11:15 Ur Leukocyte Esterase 1+ (Negative) H 06/15/19 11:15 Urine WBC (Auto) 10-30 /hpf (0-5) H 06/15/19 11:15 Urine RBC (Auto) 0-4 /hpf (0-4) 06/15/19 11:15 U Hyaline Cast (Auto) 1-5 /lpf (0-5) 06/15/19 11:15 U Epithel Cells (Auto) 10-20 /lpf (0-5) H 06/15/19 11:15 Urine Bacteria (Auto) 4+ (Negative) H 06/15/19 11:15 06/15/19 13:57 POC Glucose 314 H*
[2019-06-15] MEDS ORDERED: KETAMINE HCL INJ 50 MG/ML 10 ML VIAL ONE (14:58)
[2019-06-15] MEDS: METOPROLOL TARTRATE 1 MG/ML VIAL IV PRN ×2 (14:58→15:03)
[2019-06-15] MEDS ORDERED: IOTHALAMATE MEGLUMINE II 17.2% 250 ML VIAL INSTIL SCH (15:15)
--- NOTE | 2019-06-15 15:48 | Operative Report ---
PG Post Operative Report Pre & Post Diagnosis Obst Left Stone with sepsis Same Operation Date: 06/15/19 15:50 <No data on this case meets the specified criteria> I identified the patient and participated in the time-out.: Yes Procedure Cystoscopy with left retrograde pyelogram and stent placement. Operation Date: 06/15/19 15:50 <No data on this case meets the specified criteria> Surgeon Christiano Mendez, II, DO Loading Unit Operator None Estimated Blood Loss 1 Findings Consistent with Post-Op Diagnosis Stent placed in good position. Specimens None Drains 6 Fr Multilength Anesthesia Type MAC Complications none Disposition Disposition: Recovery Room Indications Patient with obstruction. Risks and benefits discussed at length. Description of Procedure Patient was consented and brought back to the operating room. Patient was placed under anesthesia in the supine position and moved to the dorsal lithotomy position. Patient was prepped and draped in the regular sterile fashion. A time out was completed. A 30degree Cystoscope was placed into the bladder and the entire bladder was examined. The UO's were identified. The UO was cannulized with a catheter and a retrograde pyelogram was completed. A wire was then placed. With the wire in place, a 6 Fr Double J stent was placed. It was confirmed with fluoroscopy. With the stent in place, the bladd er was emptied. The scope was removed. The patient was cleaned, aroused from anesthesia, and transferred to the pacu in stable condition having tolerated the procedure well with no complications. I was present and participated in all aspects of the procedure. The patient will be monitored in the PACU until transferred. I attest to the content of the Intraoperative Record and any orders documented therein. Any exceptions are noted below.
--- NOTE | 2019-06-15 16:02 | Fluoroscopy Report ---
FL retrograde includes kub CLINICAL HISTORY: LEFT RETROGRADE COMPARISON STUDY: CT scan dated 06/15/2019 FLUOROSCOPY TIME: 39 seconds. NUMBER OF FLUOROSCOPIC IMAGES: 2 FINDINGS: 2 intraprocedural fluoroscopic spot images demonstrate a double pigtail left sided nephrour eteral stent. The imaging in the superior aspect of the stent is significantly degraded due to motion artifact. There is suspected mild dilatation of the left renal collecting system IMPRESSION: A double pigtail left sided nephroureteral stent is visualized. Electronically signed by: Brad Nogueira M.D. 06/15/2019 4:01 PM
--- NOTE | 2019-06-15 16:42 | Anesthesiology Progress Note ---
Date of Service June 15, 2019 Anesthesia Post Procedure Vital Signs Vital Signs: Temp Pulse Pulse Pulse Resp BP BP 06/15/19 16:20 113 H 18 110/61 06/15/19 16:10 101 H 18 118/65 06/15/19 16:03 37.2 C 109 H 18 101/65 06/15/19 15:03 125 H 124/59 L 06/15/19 14:58 146 H 118/77 06/15/19 13:50 36.6 C 136 H 22 143/89 H 06/15/19 13:43 132 H 22 170/99 H 06/15/19 13:31 141 H 21 06/15/19 13:30 133 H 21 178/88 H 06/15/19 13:15 136 H 20 162/70 H 06/15/19 13:01 90 20 165/105 H 06/15/19 13:00 90 23 06/15/19 12:31 86 17 178/85 H 06/15/19 12:30 87 20 06/15/19 12:02 85 18 06/15/19 12:01 89 17 151/96 H 06/15/19 12:00 90 14 06/15/19 11:40 89 18 06/15/19 11:31 93 H 21 06/15/19 11:30 92 H 18 173/73 H 06/15/19 11:25 92 H 23 159/83 H 06/15/19 11:24 92 H 17 06/15/19 10:40 89 20 06/15/19 10:30 93 H 19 06/15/19 10:20 91 H 20 06/15/19 10:10 94 H 24 06/15/19 10:02 36.8 C 92 H 91 H 21 138/81 138/81 06/15/19 10:00 96 H 21 06/15/19 09:56 98 H 15 06/15/19 09:35 99 H 19 144/73 H Pulse Ox 06/15/19 16:20 97 06/15/19 16:10 97 06/15/19 16:03 96 06/15/19 15:03 06/15/19 14:58 06/15/19 13:50 92 06/15/19 13:43 95 06/15/19 13:31 06/15/19 13:30 96 06/15/19 13:15 93 06/15/19 13:01 96 06/15/19 13:00 96 06/15/19 12:31 98 06/15/19 12:30 96 06/15/19 12:02 97 06/15/19 12:01 06/15/19 12:00 06/15/19 11:40 95 06/15/19 11:31 96 06/15/19 11:30 97 06/15/19 11:25 06/15/19 11:24 06/15/19 10:40 94 06/15/19 10:30 94 06/15/19 10:20 94 06/15/19 10:10 96 06/15/19 10:02 95 06/15/19 10:00 06/15/19 09:56 06/15/19 09:35 Transfer of Care Handoff Completed per policy Notes Mental Status: alert / awake / arousable Patient Amnestic to Procedure: Yes Nausea / Vomiting: adequately controlled Pain: adequately controlled Airway Patency, RR, SpO2: stable & adequate BP & HR: see Notes below Hydration State: stable & adequate Anesthetic Complications: no major complications apparent Notes: Pt to be transferred to ICU for further monitoring. PT admitted w/ AFIB/RVR at 150's. Pt was given metoprolol and started on a diltiazem drip. Pt had cystoscopy under MAC/sedation. Pt now in PACU w/ HR at 100.
--- NOTE | 2019-06-15 17:13 | Emergency Department Note ---
Entered by Cora Mckeon acting as a scribe for Octavio Burger MD History of Present Illness General Chief complaint: Fall Time Seen by Provider: 06/15/19 09:58 Source: patient and other (nursing staff) History of Present Illness Onset (ago): day(s) 2 Location: left (shoulder) Pain Consistency: + other (episode) Maximum Pain Intensity: 7 Quality: + other (fall) Associated symptoms: + denies other symptoms (head pain, neck pain, abdominal pain), + rash and + other (left shoulder pain); no chest pain, no headaches and no nausea/vomiting (vomiting) The patient is an 84 year old female w/ PMHx cognitive impairment, GERD, HLD, diabetes, hysterectomy, and appendectomy who presents to the ED w/ CC of an episode of a fall occurring possibly 2 days ago. The patient states that she doesnt remember the fall, but doesnt think she hit her head. She states that all she knows is that she is having left shoulder pain. Per nursing staff, the patients son found the patient laying on the floor on her stomach. They state that he suspects that she fell 2 days ago, but is unsure. The patient complains of a rash in her left abdomen and leg, but is unsure how long it has been there. The patient notes that she is right handed. The patient denies use of blood thinners, vomiting, headache, a history of shoulder surgeries, head alayna n, neck pain, chest pain, and abdominal pain. Home Medications Home Medications Medication Instructions Recorded Confirmed Type calcium carbonate 600 mg calcium 600 mg PO QAM tab 01/01/19 06/15/19 History (1,500 mg) tablet cholecalciferol (vitamin D3) 50 2,000 units PO QAM cap 01/01/19 06/15/19 History mcg (2,000 unit) capsule coenzyme Q10 10 10 mg capsule 10 mg PO DAILY cap 01/01/19 06/15/19 History glimepiride 2 mg tablet 4 mg PO DAILY #180 tab 01/01/19 06/15/19 History multivitamin 1 tab PO DAILY 01/01/19 06/15/19 History omega-3 acid ethyl esters 1 gram 2 cap PO QAM cap 01/01/19 06/15/19 History capsule tolterodine 4 mg capsule,extended 4 mg PO DAILY #90 cap 01/01/19 06/15/19 Histor y release 24 hr vitamin B complex 1 tab PO DAILY 01/01/19 06/15/19 History celecoxib [Celebrex] 200 mg PO QAM 06/15/19 06/15/19 History donepezil 10 mg tablet See Rx Instructions .ROUTE 06/15/19 Rx .COMPLEX #90 tab psyllium husk [Metamucil] 0 g PO UD 06/15/19 06/15/19 History simvastatin 20 mg PO HS 06/15/19 06/15/19 History tramadol 50 mg PO QAM 06/15/19 06/15/19 History Allergies Allergy/AdvReac Type Severity Reaction Status Date / Time adhesive Allergy Unknown SKIN Verified 06/15/19 11:03 BLISTERS tetanus toxoid, adsorbed Allergy Unknown EDEMA AT Verified 06/15/19 11:03 SITE codeine AdvReac Unknown HEART Verified 06/15/19 11:03 PALPITATIONS, RECIEVED MORPHINE IV IN 2004 ADMIT Past Med/Surg History Medical History Abnormal finding on imaging Cognitive impairment (Chronic) Cyst of kidney, acquired Edema of left lower extremity Fatigue Gait instability Gastroesophageal reflux Hyperlipidemia Knee pain Laceration Memory loss, 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 Pain of right tibia Right knee pain Type 2 diabetes mellitus Urinary urgency Vitamin D deficiency Surgical History H/O: hysterectomy History of appendectomy Hx of knee surgery Family History Sister Diabetes Stroke Brother Diabetes Prostate cancer Father Lung disease Social History Preferred Language: Latvian Communication Ability: Effective Punch Operator Required: No Beliefs That Will Affect Care: None Current Living Situation: Alone Feels Safe at Home: Yes Smoking Status: Never smoker Hx Alcohol Use: Yes Alcohol type: wine Hx Substance Use: No caffeine: No Seatbelt Use: always Review of Systems See HPI for pertinent positives & negatives. and A total of 10 systems reviewed and were otherwise negative Physical Exam Vital Signs Vital Signs - 24 hr 06/15/19 09:35 06/15/19 09:56 06/15/19 10:00 Temperature Temperature Source Pulse Rate 99 H 98 H 96 H Pulse Rate [Apical] Pulse Rate [Left] Pulse Rate from SpO2 Sensor Pulse Rhythm [Apical] Respiratory Rate 19 15 21 Respiratory Effort / Characteristics Respiratory Depth Respiratory Pattern Blood Pressure 144/73 H Blood Pressure [Right Arm] Blood Pressure Mean 95 Blood Pressure Mean [Right Arm] Blood Pressure Position Blood Pressure Position [Right Arm] Pulse Oximetry Oxygen Delivery Method Oxygen Flow Rate Sepsis Recent Fever Within 48 Hours Sepsis New/Unexplained Change in Mental Status Sepsis Action Taken by Nursing 06/15/19 10:02 06/15/19 10:10 06/15/19 10:20 Temperature 36.8 C Temperature Source Oral Pulse Rate 92 H 94 H 91 H Pulse Rate [Apical] Pulse Rate [Left] 91 H Pulse Rate from SpO2 Sensor 95 H 93 H 91 H Pulse Rhythm [Apical] Respiratory Rate 21 24 20 Respiratory Effort / Characteristics Spontaneous Respiratory Depth Respiratory Pattern Blood Pressure 138/81 Blood Pressure [Right Arm] 138/81 Blood Pressure Mean 115 Blood Pressure Mean [Right Arm] 100 Blood Pressure Position Lying Blood Pressure Position [Right Arm] Lying Pulse Oximetry 95 96 94 Oxygen Delivery Method Room Air Oxygen Flow Rate Sepsis Recent Fever Within 48 Hours No Sepsis New/Unexplained Change in Mental Status No Sepsis Action Taken by Nursing No Action Required 06/15/19 10:30 06/15/19 10:40 06/15/19 11:24 Temperature Temperature Source Pulse Rate 93 H 89 92 H Pulse Rate [Apical] Pulse Rate [Left] Pulse Rate from SpO2 Sensor 93 H 89 Pulse Rhythm [Apical] Respiratory Rate 19 20 17 Respiratory Effort / Characteristics Respiratory Depth Respiratory Pattern Blood Pressure Blood Pressure [Right Arm] Blood Pressure Mean Blood Pressure Mean [Right Arm] Blood Pressure Position Blood Pressure Position [Right Arm] Pulse Oximetry 94 94 Oxygen Delivery Method Oxygen Flow Rate Sepsis Recent Fever Within 48 Hours Sepsis New/Unexplained Change in Mental Status Sepsis Action Taken by Nursing 06/15/19 11:25 06/15/19 11:30 06/15/19 11:31 Temperature Temperature Source Pulse Rate 92 H 92 H 93 H Pulse Rate [Apical] Pulse Rate [Left] Pulse Rate from SpO2 Sensor 93 H 93 H Pulse Rhythm [Apical] Respiratory Rate 23 18 21 Respiratory Effort / Characteristics Respiratory Depth Respiratory Pattern Blood Pressure 159/83 H 173/73 H Blood Pressure [Right Arm] Blood Pressure Mean 92 108 Blood Pressure Mean [Right Arm] Blood Pressure Position Blood Pressure Position [Right Arm] Pulse Oximetry 97 96 Oxygen Delivery Method Oxygen Flow Rate Sepsis Recent Fever Within 48 Hours Sepsis New/Unexplained Change in Mental Status Sepsis Action Taken by Nursing 06/15/19 11:40 06/15/19 12:00 06/15/19 12:01 Temperature Temperature Source Pulse Rate 89 90 89 Pulse Rate [Apical] Pulse Rate [Left] Pulse Rate from SpO2 Sensor 89 Pulse Rhythm [Apical] Respiratory Rate 18 14 17 Respiratory Effort / Characteristics Respiratory Depth Respiratory Pattern Blood Pressure 151/96 H Blood Pressure [Right Arm] Blood Pressure Mean 114 Blood Pressure Mean [Right Arm] Blood Pressure Position Blood Pressure Position [Right Arm] Pulse Oximetry 95 Oxygen Delivery Method Oxygen Flow Rate Sepsis Recent Fever Within 48 Hours Sepsis New/Unexplained Change in Mental Status Sepsis Action Taken by Nursing 06/15/19 12:02 06/15/19 12:30 06/15/19 12:31 Temperature Temperature Source Pulse Rate 85 87 86 Pulse Rate [Apical] Pulse Rate [Left] Pulse Rate from SpO2 Sensor 90 85 87 Pulse Rhythm [Apical] Respiratory Rate 18 20 17 Respiratory Effort / Characteristics Respiratory Depth Respiratory Pattern Blood Pressure 178/85 H Blood Pressure [Right Arm] Blood Pressure Mean 104 Blood Pressure Mean [Right Arm] Blood Pressure Position Blood Pressure Position [Right Arm] Pulse Oximetry 97 96 98 Oxygen Delivery Method Oxygen Flow Rate Sepsis Recent Fever Within 48 Hours Sepsis New/Unexplained Change in Mental Status Sepsis Action Taken by Nursing 06/15/19 13:00 06/15/19 13:01 06/15/19 13:15 Temperature Temperature Source Pulse Rate 90 90 136 H Pulse Rate [Apical] Pulse Rate [Left] Pulse Rate from SpO2 Sensor 91 H 91 H 138 H Pulse Rhythm [Apical] Respiratory Rate 23 20 20 Respiratory Effort / Characteristics Respiratory Depth Respiratory Pattern Blood Pressure 165/105 H 162/70 H Blood Pressure [Right Arm] Blood Pressure Mean 121 94 Blood Pressure Mean [Right Arm] Blood Pressure Position Blood Pressure Position [Right Arm] Pulse Oximetry 96 96 93 Oxygen Delivery Method Oxygen Flow Rate Sepsis Recent Fever Within 48 Hours Sepsis New/Unexplained Change in Mental Status Sepsis Action Taken by Nursing 06/15/19 13:30 06/15/19 13:31 06/15/19 13:43 Temperature Temperature Source Pulse Rate 133 H 141 H 132 H Pulse Rate [Apical] Pulse Rate [Left] Pulse Rate from SpO2 Sensor 136 H Pulse Rhythm [Apical] Respiratory Rate 21 21 22 Respiratory Effort / Characteristics Respiratory Depth Respiratory Pattern Blood Pressure 178/88 H 170/99 H Blood Pressure [Right Arm] Blood Pressure Mean 104 Blood Pressure Mean [Right Arm] Blood Pressure Position Blood Pressure Position [Right Arm] Pulse Oximetry 96 95 Oxygen Delivery Method Oxygen Flow Rate Sepsis Recent Fever Within 48 Hours Sepsis New/Unexplained Change in Mental Status Sepsis Action Taken by Nursing 06/15/19 13:50 06/15/19 14:58 06/15/19 15:03 Temperature 36.6 C Temperature Source Oral Pulse Rate 146 H 125 H Pulse Rate [Apical] Pulse Rate [Left] 136 H Pulse Rate from SpO2 Sensor Pulse Rhythm [Apical] Respiratory Rate 22 Respiratory Effort / Characteristics Non-Labored Spontaneous Respiratory Depth Normal Respiratory Pattern Regular Blood Pressure 118/77 124/59 L Blood Pressure [Right Arm] 143/89 H Blood Pressure Mean Blood Pressure Mean [Right Arm] 107 Blood Pressure Position Blood Pressure Position [Right Arm] Lying Pulse Oximetry 92 Oxygen Delivery Method Room Air Oxygen Flow Rate Sepsis Recent Fever Within 48 Hours Sepsis New/Unexplained Change in Mental Status Sepsis Action Taken by Nursing 06/15/19 16:03 06/15/19 16:10 06/15/19 16:20 Temperature 37.2 C Temperature Source Temporal Artery Scan Pulse Rate Pulse Rate [Apical] 109 H 101 H 113 H Pulse Rate [Left] Pulse Rate from SpO2 Sensor Pulse Rhythm [Apical] Irregular Irregular Irregular Respiratory Rate 18 18 18 Respiratory Effort / Characteristics Non-Labored Spontaneous Non-Labored Spontaneous Non-Labored Spontaneous Respiratory Depth Normal Normal Normal Respiratory Pattern Regular Regular Regular Blood Pressure Blood Pressure [Right Arm] 101/65 118/65 110/61 Blood Pressure Mean Blood Pressure Mean [Right Arm] 77 82 77 Blood Pressure Position Blood Pressure Position [Right Arm] Semi-fowlers Semi-fowlers Semi-fowlers Pulse Oximetry 96 97 97 Oxygen Delivery Method Oxymask Oxymask Oxymask Oxygen Flow Rate 15 15 15 Sepsis Recent Fever Within 48 Hours Sepsis New/Unexplained Change in Mental Status Sepsis Action Taken by Nursing 06/15/19 16:30 06/15/19 16:40 06/15/19 16:50 Temperature 36.7 C Temperature Source Temporal Artery Scan Pulse Rate Pulse Rate [Apical] 110 H 107 H 107 H Pulse Rate [Left] Pulse Rate from SpO2 Sensor Pulse Rhythm [Apical] Irregular Irregular Irregular Respiratory Rate 18 18 18 Respiratory Effort / Characteristics Non-Labored Spontaneous Non-Labored Spontaneous Non-Labored Spontaneous Respiratory Depth Normal Normal Normal Respiratory Pattern Regular Regular Regular Blood Pressure Blood Pressure [Right Arm] 110/60 113/67 119/57 L Blood Pressure Mean Blood Pressure Mean [Right Arm] 76 82 77 Blood Pressure Position Blood Pressure Position [Right Arm] Semi-fowlers Semi-fowlers Semi-fowlers Pulse Oximetry 96 96 96 Oxygen Delivery Method Oxymask Oxymask Oxymask Oxygen Flow Rate 10 10 5 Sepsis Recent Fever Within 48 Hours Sepsis New/Unexplained Change in Mental Status Sepsis Action Taken by Nursing 06/15/19 17:00 Temperature Temperature Source Pulse Rate Pulse Rate [Apical] 96 H Pulse Rate [Left] Pulse Rate from SpO2 Sensor Pulse Rhythm [Apical] Irregular Respiratory Rate 18 Respiratory Effort / Characteristics Non-Labored Spontaneous Respiratory Depth Normal Respiratory Pattern Regular Blood Pressure Blood Pressure [Right Arm] 115/59 L Blood Pressure Mean Blood Pressure Mean [Right Arm] 77 Blood Pressure Position Blood Pressure Position [Right Arm] Semi-fowlers Pulse Oximetry 95 Oxygen Delivery Method Oxymask Oxygen Flow Rate 5 Sepsis Recent Fever Within 48 Hours Sepsis New/Unexplained Change in Mental Status Sepsis Action Taken by Nursing GENERAL: Well appearing, well nourished, NAD, non-toxic. EYE EXAM: Normal conjunctiva. PERRL, no anisocoria and EOM's grossly intact w/o pain. OROPHARYNX: Moist mucous membranes. Grossly normal dentition. NECK: Supple, no nuchal rigidity, no adenopathy, non-tender. No signs of meningismus. LUNGS: Clear to auscultation. Normal chest wall mechanics. HEART: NSR, no MRG. ABDOMEN: Abdomen soft, non-tender, normo-active bowel sounds, no masses, no rebound or guarding. BACK: No CVA TTP. SKIN: No bruising. Non-blanching erythematous rash over the left lower extremity. 6 x3 cm area of unruptured blister over the left lower quadrant. Diffuse red raw rash within the intertriginous folds of the panis. UPPER EXTREMITIES: Upper extremities are grossly normal. LOWER EXTREMITIES: No pitting edema. No calf pain. NEURO EXAM: A&O x3, cranial nerves II-XII grossly intact, normal speech, moves all 4 extremities on command w/o issue. Course Course 1008: The patient was evaluated in room C3. A complete history and physical exam was performed. 1010: Orders were placed and the patient was started on a clinical asst at this time. 1127: The lactate was not reported. I called the charge nurse to make sure it is done. 1144: I reevaluated the patient and updated the patient's son on her test results thus far. 1227: I discussed the patient's case with [facility]. She will speak with Dr. Mendez about the patient's case. 1238: I discussed the patient's case with [place]. [place] [facility] [place] He will evaluate the patient for further management. 1257: I reevaluated the patient and updated her and her family on her test results. I discussed the treatment plan with them. They verbally agree and understand. 1322: I discussed the patient's case with Dr. Mendez- Urology. He is going to see the patient at this time. Administered Medications Iothalamate Meglumine (Cysto-Conray Ii) 10 ml INSTIL ONCE PHOEBE Stop: 07/15/19 15:14 Last Admin: 06/15/19 15:56 Dose: 10 ml Documented by: [id number] Metoprolol Tartrate (Lopressor) 2.5 mg IV Q5M PRN PRN Reason: Tachycardia Stop: 07/15/19 14:58 Last Admin: 06/15/19 15:03 Dose: 2.5 mg Documented by: [id number] Admin: 06/15/19 14:58 Dose: 2.5 mg Documented by: [id number] Discontinued Medications Sodium Chloride (Nss 1000ml) 1,000 mls @ 999 mls/hr IV .Q1H1M PHOEBE Stop: 06/15/19 11:30 Last Infusion: 06/15/19 12:31 Dose: 0 mls/hr Documented by: [id number] Admin: 06/15/19 11:27 Dose: 999 mls/hr Documented by: [id number] Vancomycin HCl 2,000 mg/ (Sodium Chloride) 540 mls @ 200 mls/hr IV NOW ONE Stop: 06/15/19 13:35 Last Admin: 06/15/19 11:27 Dose: 200 mls/hr Documented by: [id number] Piperacillin Sod/Tazobactam Sod (Zosyn) 4.5 gm in 120 mls @ 240 mls/hr IV NOW ONE Stop: 06/15/19 11:23 Last Infusion: 06/15/19 11:58 Dose: 0 mls/hr Documented by: [id number] Admin: 06/15/19 11:27 Dose: 240 mls/hr Documented by: [id number] Sodium Chloride (Nss 1000ml) 1,000 mls @ 999 mls/hr IV .Q1H1M ONE Stop: 06/15/19 12:47 Last Admin: 06/15/19 11:57 Dose: 999 mls/hr Documented by: [id number] Potassium Phosphate 9 mmol/ (Sodium Chloride) 253 mls @ 88 mls/hr IV ONE ONE Stop: 06/15/19 15:37 Last Admin: 06/15/19 13:13 Dose: 88 mls/hr Documented by: [id number] Diltiazem HCl 10 mg/ Syringe 2 mls @ 0 mls/min IV 1500 PHOEBE Stop: 06/15/19 15:30 Last Admin: 06/15/19 15:10 Dose: 10 mls/min Documented by: [id number] Cosigned by: [id number] Insulin Aspart (Novolog Per Unit) Confirm Administered Dose 10 units .ROUTE .STK-MED ONE Stop: 06/15/19 14:37 Last Admin: 06/15/19 14:39 Dose: 10 units Documented by: [id number] Cosigned by: [id number] Critical Care Time Critical Care Time: Yes Total Critical Care Time: 95 I have personally spent 95 minutes of critical care time in direct management of this patient. This includes bedside care, interpretation of diagnostic studies, and testing, discussion with consultants, patient, and family members, and other require inpatient management activities. This 95 minutes is in excess of all separately billable procedures. Medical Decision Making Differential Diagnosis Differential Diagnosis includes but is not limited to dehydration, stroke, anemia, hypoglycemia, hyponatremia, hypernatremia, urinary tract infection, pneumonia, bronchitis, sepsis, gastroenteritis, additional abdominal pathology, metabolic abnormalities and infections. Medical Records Attestation: I reviewed the patient's medical records. Home Medications Current Medication List: was personally reviewed by me Laboratory Data Attestation: I reviewed the patient's lab results. Result diagrams: 06/15/19 10:00 06/15/19 10:00 Lab Results 12/09/19 12/09/19 12/09/19 Range/Units 10:00 10:00 10:00 WBC 33.29 H* (4.8-10.8) K/uL RBC 5.17 (4.2-5.4) M/uL Hgb 16.4 H (12.0-16.0) g/dL Hct 47.3 H (37-47) % MCV 91.5 (80-100) fL MCH 31.7 (25-34) pg MCHC 34.7 (32-36) g/dL RDW Std Deviation 45.2 (36.4-46.3) fL RDW Coeff of Junie 13.5 (11.5-14.5) % Plt Count 191 (130-400) K/uL MPV 10.6 H (7.4-10.4) fL Immature Gran % (Auto) 1.1 % Neut % (Auto) 94.6 % Lymph % (Auto) 1.2 % Collier % (Auto) 2.9 % Eos % (Auto) 0.1 % Baso % (Auto) 0.1 % Immature Gran # (Auto) 0.36 H (0.00-0.02) K/uL Neut # (Auto) 31.52 H (1.4-6.5) K/uL Lymph # (Auto) 0.40 L (1.2-3.4) K/uL Collier # (Auto) 0.96 H (0.11-0.59) K/uL Eos # (Auto) 0.02 (0-0.5) K/uL Baso # (Auto) 0.03 (0-0.2) K/uL PT 11.5 (9.0-12.0) Seconds INR 1.1 (0.9-1.1) APTT 27.3 (21.0-31.0) Seconds PTT Ratio 1.0 Sodium 138 (136-145) mmol/L Potassium 3.1 L (3.5-5.1) mmol/L Chloride 103 (98-107) mmol/L Carbon Dioxide 24 (21-32) mmol/L Anion Gap 11.0 (3-11) BUN 59 H (7-18) mg/dl Creatinine 1.54 H (0.6-1.2) mg/dl Est Cr Clr Drug Dosing 29.9 ml/min Est GFR ( Amer) 35.8 Est GFR (Non-Af Amer) 30.9 BUN/Creatinine Ratio 38.2 H (10-20) Glucose 323 H* (70-99) mg/dl POC Glucose (70-99) Lactate (0.4-2.0) mmol/L Calcium 10.7 H (8.5-10.1) mg/dl Total Bilirubin 1.3 H (0.2-1) mg/dl AST 56 H (15-37) U/L ALT 57 (12-78) U/L Alkaline Phosphatase 146 H (45-117) U/L Total Creatine Kinase 219 H (26-192) U/L Total Protein 7.7 (6.4-8.2) gm/dl Albumin 3.3 L (3.4-5.0) gm/dl Globulin 4.4 H (2.5-4.0) gm/dl Albumin/Globulin Ratio 0.7 L (0.9-2) Beta-Hydroxybutyric Acd 22.37 H (0.2-2.81) mg/dl Procalcitonin (0-0.5) ng/ml Urine Color Urine Appearance (Clear) Urine pH (4.5-7.5) Ur Specific [place] (1.000-1.030) Urine Protein (Negative) Urine Glucose (UA) (Negative) Urine Ketones (Negative) Urine Blood (Negative) Urine Nitrite (Negative) Urine Bilirubin (Negative) Urine Urobilinogen (Negative) Ur Leukocyte Esterase (Negative) Urine WBC (Auto) (0-5) /hpf Urine RBC (Auto) (0-4) /hpf U Hyaline Cast (Auto) (0-5) /lpf U Epithel Cells (Auto) (0-5) /lpf Urine Bacteria (Auto) (Negative) Urine Yeast 06/15/19 06/15/19 06/15/19 Range/Units 10:00 11:15 11:25 WBC (4.8-10.8) K/uL RBC (4.2-5.4) M/uL Hgb (12.0-16.0) g/dL Hct (37-47) % MCV (80-100) fL MCH (25-34) pg MCHC (32-36) g/dL RDW Std Deviation (36.4-46.3) fL RDW Coeff of Junie (11.5-14.5) % Plt Count (130-400) K/uL MPV (7.4-10.4) fL Immature Gran % (Auto) % Neut % (Auto) % Lymph % (Auto) % Collier % (Auto) % Eos % (Auto) % Baso % (Auto) % Immature Gran # (Auto) (0.00-0.02) K/uL Neut # (Auto) (1.4-6.5) K/uL Lymph # (Auto) (1.2-3.4) K/uL Collier # (Auto) (0.11-0.59) K/uL Eos # (Auto) (0-0.5) K/uL Baso # (Auto) (0-0.2) K/uL PT (9.0-12.0) Seconds INR (0.9-1.1) APTT (21.0-31.0) Seconds PTT Ratio Sodium (136-145) mmol/L Potassium (3.5-5.1) mmol/L Chloride (98-107) mmol/L Carbon Dioxide (21-32) mmol/L Anion Gap (3-11) BUN (7-18) mg/dl Creatinine (0.6-1.2) mg/dl Est Cr Clr Drug Dosing ml/min Est GFR ( Amer) Est GFR (Non-Af Amer) BUN/Creatinine Ratio (10-20) Glucose (70-99) mg/dl POC Glucose (70-99) Lactate 3.6 H* (0.4-2.0) mmol/L Calcium (8.5-10.1) mg/dl Total Bilirubin (0.2-1) mg/dl AST (15-37) U/L ALT (12-78) U/L Alkaline Phosphatase (45-117) U/L Total Creatine Kinase (26-192) U/L Total Protein (6.4-8.2) gm/dl Albumin (3.4-5.0) gm/dl Globulin (2.5-4.0) gm/dl Albumin/Globulin Ratio (0.9-2) Beta-Hydroxybutyric Acd (0.2-2.81) mg/dl Procalcitonin 72.86 H (0-0.5) ng/ml Urine Color Dark Yellow Urine Appearance Cloudy A (Clear) Urine pH 5.5 (4.5-7.5) Ur Specific [place] 1.024 (1.000-1.030) Urine Protein 2+ H (Negative) Urine Glucose (UA) Negative (Negative) Urine Ketones 2+ H (Negative) Urine Blood 2+ H (Negative) Urine Nitrite Positive A (Negative) Urine Bilirubin Negative (Negative) Urine Urobilinogen Negative (Negative) Ur Leukocyte Esterase 1+ H (Negative) Urine WBC (Auto) 10-30 H (0-5) /hpf Urine RBC (Auto) 0-4 (0-4) /hpf U Hyaline Cast (Auto) 1-5 (0-5) /lpf U Epithel Cells (Auto) 10-20 H (0-5) /lpf Urine Bacteria (Auto) 4+ H (Negative) Urine Yeast Not Reportable 06/15/19 06/15/19 06/15/19 Range/Units 13:42 13:57 15:50 WBC (4.8-10.8) K/uL RBC (4.2-5.4) M/uL Hgb (12.0-16.0) g/dL Hct (37-47) % MCV (80-100) fL MCH (25-34) pg MCHC (32-36) g/dL RDW Std Deviation (36.4-46.3) fL RDW Coeff of Junie (11.5-14.5) % Plt Count (130-400) K/uL MPV (7.4-10.4) fL Immature Gran % (Auto) % Neut % (Auto) % Lymph % (Auto) % [place]lier % (Auto) % Eos % (Auto) % Baso % (Auto) % Immature Gran # (Auto) (0.00-0.02) K/uL Neut # (Auto) (1.4-6.5) K/uL Lymph # (Auto) (1.2-3.4) K/uL [place] # (Auto) (0.11-0.59) K/uL Eos # (Auto) (0-0.5) K/uL Baso # (Auto) (0-0.2) K/uL PT (9.0-12.0) Seconds INR (0.9-1.1) APTT (21.0-31.0) Seconds PTT Ratio Sodium (136-145) mmol/L Potassium (3.5-5.1) mmol/L Chloride (98-107) mmol/L Carbon Dioxide (21-32) mmol/L Anion Gap (3-11) BUN (7-18) mg/dl Creatinine (0.6-1.2) mg/dl Est Cr Clr Drug Dosing ml/min Est GFR ( Amer) Est GFR (Non-Af Amer) BUN/Creatinine Ratio (10-20) Glucose (70-99) mg/dl POC Glucose 314 H* 223 H (70-99) Lactate 4.3 H* (0.4-2.0) mmol/L Calcium (8.5-10.1) mg/dl Total Bilirubin (0.2-1) mg/dl AST (15-37) U/L ALT (12-78) U/L Alkaline Phosphatase (45-117) U/L Total Creatine Kinase (26-192) U/L Total Protein (6.4-8.2) gm/dl Albumin (3.4-5.0) gm/dl Globulin (2.5-4.0) gm/dl Albumin/Globulin Ratio (0.9-2) Beta-Hydroxybutyric Acd (0.2-2.81) mg/dl Procalcitonin (0-0.5) ng/ml Urine Color Urine Appearance (Clear) Urine pH (4.5-7.5) Ur Specific [place] (1.000-1.030) Urine Protein (Negative) Urine Glucose (UA) (Negative) Urine Ketones (Negative) Urine Blood (Negative) Urine Nitrite (Negative) Urine Bilirubin (Negative) Urine Urobilinogen (Negative) Ur Leukocyte Esterase (Negative) Urine WBC (Auto) (0-5) /hpf Urine RBC (Auto) (0-4) /hpf U Hyaline Cast (Auto) (0-5) /lpf U Epithel Cells (Auto) (0-5) /lpf Urine Bacteria (Auto) (Negative) Urine Yeast 06/15/19 Range/Units 16:20 WBC (4.8-10.8) K/uL RBC (4.2-5.4) M/uL Hgb (12.0-16.0) g/dL Hct (37-47) % MCV (80-100) fL MCH (25-34) pg MCHC (32-36) g/dL RDW Std Deviation (36.4-46.3) fL RDW Coeff of Junie (11.5-14.5) % Plt Count (130-400) K/uL MPV (7.4-10.4) fL Immature Gran % (Auto) % Neut % (Auto) % Lymph % (Auto) % [place] % (Auto) % Eos % (Auto) % Baso % (Auto) % Immature Gran # (Auto) (0.00-0.02) K/uL Neut # (Auto) (1.4-6.5) K/uL Lymph # (Auto) (1.2-3.4) K/uL [place] # (Auto) (0.11-0.59) K/uL Eos # (Auto) (0-0.5) K/uL Baso # (Auto) (0-0.2) K/uL PT (9.0-12.0) Seconds INR (0.9-1.1) APTT (21.0-31.0) Seconds PTT Ratio Sodium (136-145) mmol/L Potassium (3.5-5.1) mmol/L Chloride (98-107) mmol/L Carbon Dioxide (21-32) mmol/L Anion Gap (3-11) BUN (7-18) mg/dl Creatinine (0.6-1.2) mg/dl Est Cr Clr Drug Dosing ml/min Est GFR ( Amer) Est GFR (Non-Af Amer) BUN/Creatinine Ratio (10-20) Glucose (70-99) mg/dl POC Glucose 232 H (70-99) Lactate (0.4-2.0) mmol/L Calcium (8.5-10.1) mg/dl Total Bilirubin (0.2-1) mg/dl AST (15-37) U/L ALT (12-78) U/L Alkaline Phosphatase (45-117) U/L Total Creatine Kinase (26-192) U/L Total Protein (6.4-8.2) gm/dl Albumin (3.4-5.0) gm/dl Globulin (2.5-4.0) gm/dl Albumin/Globulin Ratio (0.9-2) Beta-Hydroxybutyric Acd (0.2-2.81) mg/dl Procalcitonin (0-0.5) ng/ml Urine Color Urine Appearance (Clear) Urine pH (4.5-7.5) Ur Specific [place] (1.000-1.030) Urine Protein (Negative) Urine Glucose (UA) (Negative) Urine Ketones (Negative) Urine Blood (Negative) Urine Nitrite (Negative) Urine Bilirubin (Negative) Urine Urobilinogen (Negative) Ur Leukocyte Esterase (Negative) Urine WBC (Auto) (0-5) /hpf Urine RBC (Auto) (0-4) /hpf U Hyaline Cast (Auto) (0-5) /lpf U Epithel Cells (Auto) (0-5) /lpf Urine Bacteria (Auto) (Negative) Urine Yeast Imaging Data Radiologist's Impression: Radiology results as stated below per my review and the radiologist's interpretation: XR chest 1V portable CLINICAL HISTORY: Sepsis dyspnea COMPARISON STUDY: 02/23/2019 FINDINGS: Mild stable cardiac enlargement. The lungs are clear. Unchanged postoperative changes left humerus. IMPRESSION: Chronic and postoperative change. No acute process. The above report was generated using voice recognition software. It may contain grammatical, syntax or spelling errors. Electronically signed by: Jude Kendall M.D. 06/15/2019 12:29 PM XR shoulder LT min 2V routine CLINICAL HISTORY: Left shoulder pain following fall. COMPARISON: Left humerus radiographs November 13, 2015. Left shoulder fluoroscopic images November 15, 2015. FINDINGS: A left humeral internal fixation is noted. There is a healed diaphyseal fracture of the left humerus. Hardware is intact. There is no acute fracture within the left shoulder. 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 There is mild glenohumeral joint osteoarthritis. IMPRESSION: 1. No acute fracture or dislocation within the left shoulder. 2. Expected findings following left humeral internal fixation. Hardware intact. Healed fracture. Electronically signed by: Enrrique Johns M.D. 06/15/2019 12:[address] OF THE HEAD WITHOUT CONTRAST CLINICAL HISTORY: s/p found on ground since Saturday COMPARISON STUDY: Head CT February 23, 2019. CT DOSE: 995.63 mGy.cm TECHNIQUE: Helical axial images of the head were obtained without IV contrast. Automated exposure control was utilized for the study. A dose lowering technique was utilized adhering to the principles of ALARA. FINDINGS: No acute intracranial hemorrhage, midline shift or mass effect is present. The ventricular system is stable. Mild ventricular dilatation is unchanged and likely due to atrophy. Basilar cisterns are patent. There are no extra axial collections. White matter hypodensity suggests small vessel disease. There are no findings to suggest acute dural sinus thrombosis or acute territorial infarct. The appearance of the brain is unchanged. There is no calvarial fracture. IMPRESSION: 1. No acute intracranial findings. 2. No calvarial fracture. Electronically signed by: Enrrique Johns M.D. 06/15/2019 11:[address] cervical spine wo con CT DOSE: HISTORY: Trauma. Mental status change. s/p found on ground since saturday TECHNIQUE: Multiaxial CT images of the cervical spine were performed and reformatted in the sagittal and coronal plane without the use of contrast. A dose lowering technique was utilized adhering to the principles of ALARA. COMPARISON: None. FINDINGS: No fractures. No subluxation. Prevertebral soft tissues and the C1-C2 interval are intact. No pneumothorax. Moderate degenerative disc changes of the mid to lower cervical region. No evidence for an acute compression deformity. IMPRESSION: No acute process. Moderate degenerative change. The above report was generated using voice recognition software. It may contain grammatical, syntax or spelling errors. Electronically signed by: Jude Kendall M.D. 06/15/2019 10:[address] abd pelvis wo con CLINICAL HISTORY: 84 years-old Female presenting with WBC 30K, found down, dementia. TECHNIQUE: Multidetector CT of the abdomen and pelvis was performed without the use of intravenous contrast. IV contrast: None. One or more dose lowering techniques were used consistent with the principles of ALARA (as low as reasonably achievable), including automatic exposure control, mA or kV adjustment to individual patient size, and/or use of iterative reconstruction. COMPARISON: 08/19/2013. CT DOSE (mGy.cm): The estimated cumulative dose is 932.20 mGy.cm. FINDINGS: Cardiopulmonary Technician And Eeg Tech topogram: Cholecystectomy clips. Lung bases: Normal heart size. Coronary artery and aortic valve calcification. No pericardial or pleural effusion. Minimal dependent changes likely atel ectasis. Liver: Normal morphology. Normal density. Biliary: Mild biliary ductal prominence likely a reservoir effect in the post cholecystectomy state. Gallbladder surgically absent. Pancreas: Mild parenchymal atrophy. Spleen: Normal noncontrast appearance. Adrenal glands: Normal noncontrast appearance. Kidneys and ureters: Moderate pelvocaliectasis and distention of the left kidney with an obstructing 6 mm calculus in the proximal left ureter. Mild urothelial thickening on the left. Asymmetric left perinephric fat infiltration. Dominant cyst noted in the right kidney, which is grossly simple appearing. No additional renal calculi are evident in either kidney. Right ureter nondistended. Bladder: Decompressed with a Gloria catheter. Pelvic organs: Uterus surgically absent. Bowel: Normal noncontrast appearance. No bowel obstruction. Trace sliding type hiatal hernia. Peritoneal cavity: No free fluid or intraperitoneal gas. Lymph nodes: No gross lymphadenopathy allowing for noncontrast technique. Vasculature: Normal noncontrast appearance. Abdominal wall: Normal. Musculoskeletal: Degenerative changes of the spine. Osteopenia may be present. IMPRESSION: 1. Moderate left hydronephrosis with an obstructing 6 mm proximal left ureteral calculus. 2. Allowing for noncontrast technique, no acute intra-abdominal injury. Electronically signed by: Aniket Valdez M.D. 06/15/2019 12:08 PM ECG Data Attestation: I personally reviewed and interpreted this ECG as follows: Indication: + back/shoulder pain Rate (beats per minute): 97 Rhythm: + normal sinus ECG Intervals/blocks: + Normal QRS, + Normal W[place] and + Normal QT-c ECG Seco: + Left axis deviation ECG ST segments: no ST depression and no ST elevation Additional Comments: REPEAT EKG: Atrial fibrillation with RVR at a rate of 124. Normal QRS. LAD. TWI in the hilateral leads. Compared to prior tracing, the rate is faster and the rhythm is new. Blood Pressure Blood Pressure Findings: Elevated blood pressure Blood Pressure Disposition: further management by hospitalist DEVEN Narrative The patient is an 84 year old female w/ PMHx cognitive impairment, GERD, HLD, diabetes, hysterectomy, and appendectomy who presents to the ED w/ CC of an episode of a fall occurring possibly 2 days ago. Patient was seen and evaluated the bedside. The patient did present with concern for some worsening lethargy. Patient was barely found down on the floor. Patient does have a petechial rash over the abdomen and left lower extremity. Patient not meningitic do not believe this is a minute meningococcal rash but more related to the patient's being down on the floor for approximately 2 days. Patient did have blood work completed. Given the patient's LV to white count empiric antibiotics and blood cultures were also obtained. Lactate did have a delayed obtaining but I did speak the charge nurse in order to make sure that this was obtained. Patient did have a Noncon CT scan completed which did show an obstructing left stone. I did speak with the on-call urologist who did come to the bedside to evaluate the patient. I did speak the on-call hospitalist agreed to further evaluate treat the patient. Patient was subsequently admitted to the medicine service. Impression & Plan Sepsis, Ureterolithiasis, Dehydration, Hypokalemia, Fall, Hydronephrosis with obstructing calculus, Acute shoulder pain Discharge Plan Visit Data *Final* Discharge Date/Time: 06/15/19 13:43 Chief Complaint: Fall ED Provider: Octavio Burger Discharge Problem: Sepsis, Ureterolithiasis, Dehydration, Hypokalemia, Fall, Hydronephrosis with obstructing calculus, Acute shoulder pain Patient Disposition: Still a Patient Discharge Instructions Interventions: ED Discharge Assessment Last Done: 06/15/19 13:43 Discharge Problem: Sepsis Qualifiers: Sepsis type: sepsis due to unspecified organism Sepsis acute organ dysfunction status: unspecified Qualified Code(s): A41.9 - Sepsis, unspecified organism Fall Qualifiers: Encounter type: initial encounter Qualified Code(s): W19.XXXA - Unspecified fall, initial encounter Acute shoulder pain Qualifiers: Laterality: left Qualified Code(s): M25.512 - Pain in left shoulder The scribe's documentation has been prepared under my direction and personally reviewed by me in its entirety. I confirm that the note above accurately refle cts all work, treatment, procedures, and medical decision making performed by me.
[2019-06-15] MEDS ORDERED: ICU PROTOCOL FOR HYPERGLYCEMIA PRN ×2 (17:48→17:57)
--- NOTE | 2019-06-15 17:53 | History & Physical Report ---
Date of Service June 15, 2019 Assessment & Plan (1) Hydronephrosis with obstructing calculus: Moderate left hydronephrosis with an obstructing 6 mm proximal left ureteral calculus. Status post cystoscopy/stent placement Urologist consult appreciated Given her multiple comorbidities she is going to be admitted to ICU Heparin subcu for DVT prophylaxis. (2) Complicated UTI (urinary tract infection): Empiric treatment with cefepime/Vanco Follow-up blood culture/urine culture (3) Severe sepsis with acute organ dysfunction: as mentioned above (4) Dehydration: Continue generous IV fluid hydration (5) Atrial fibrillation with RVR: New onset Currently rate controlled Continue Cardizem drip Ordered 2D echo serial Enz consult work and family life consultant (6) DKA (diabetic ketoacidoses): start insulin drip consult pharmacy for adjustment obtain ABG follow up BMP Q 4H (7) Acute respiratory failure with hypoxia: likely rate related CHF 2D echo O2 supplement as needed control rate IVF is needed , BIPAP if needed (8) Dementia: Reevaluate after patient wakes up from anesthesia (9) Acute kidney injury (NBA) with acute tubular necrosis (ATN): repeat UTI after IVF multifactorial ., dehydration, meds, sepsis, Obstructive uropathy History of Present Illness Primary Care Provider: Aniket Drake MD 84 years old female with past medical history of dementia, recurrent UTI, diabetes mellitus type 2 on oral hypoglycemic, dyslipidemia and hyperactive bladder. Presented to the ED with an episode of fall that possibly happened 2 days prior to admission son found her lying on the floor on her stomach last time was seen was 3 days ago patient was too weak to stand up and stayed on the floor. She does not remember details of how she fell. She was brought to the ED and initial work-up showed white blood cell count of more than 30,000. General screening with a CT head, chest x-ray, left shoulder x-ray were all within normal limits, she complained of some left shoulder pain but the x-ray showed hardware intact for previous open reduction internal fixation. CT scan abdomen and pelvis showed Moderate left hydronephrosis with an obstructing 6 mm proximal left ureteral calculus. Urologist was contacted and took the patient immediately to the OR status post cystoscopy and stent placement. Blood cultures and urine cultures were sent and patient was found to have new onset atrial fibrillation, started on Cardizem drip, she was also found to have DKA a nd will be admitted to ICU. Allergies Allergy/AdvReac Type Severity Reaction Status Date / Time adhesive Allergy Unknown SKIN Verified 06/15/19 11:03 BLISTERS tetanus toxoid, adsorbed Allergy Unknown EDEMA AT Verified 06/15/19 11:03 SITE codeine AdvReac Unknown HEART Verified 06/15/19 11:03 PALPITATIONS, RECIEVED MORPHINE IV IN 2004 ADMIT Home Medications Home Medications Medication Instructions Recorded Confirmed Type calcium carbonate 600 mg calcium 600 mg PO QAM tab 01/01/19 06/15/19 History (1,500 mg) tablet cholecalciferol (vitamin D3) 50 2,000 units PO QAM cap 01/01/19 06/15/19 History mcg (2,000 unit) capsule coenzyme Q10 10 10 mg capsule 10 mg PO DAILY cap 01/01/19 06/15/19 History glimepiride 2 mg tablet 4 mg PO DAILY #180 tab 01/01/19 06/15/19 History multivitamin 1 tab PO DAILY 01/01/19 06/15/19 History omega-3 acid ethyl esters 1 gram 2 cap PO QAM cap 01/01/19 06/15/19 History capsule tolterodine 4 mg capsule,extended 4 mg PO DAILY #90 cap 01/01/19 06/15/19 Histo ry release 24 hr vitamin B complex 1 tab PO DAILY 01/01/19 06/15/19 History celecoxib [Celebrex] 200 mg PO QAM 06/15/19 06/15/19 History donepezil 10 mg tablet See Rx Instructions .ROUTE 06/15/19 Rx .COMPLEX #90 tab psyllium husk [Metamucil] 0 g PO UD 06/15/19 06/15/19 History simvastatin 20 mg PO HS 06/15/19 06/15/19 History tramadol 50 mg PO QAM 06/15/19 06/15/19 History Past Med/Surg History Medical History Abnormal finding on imaging Cognitive impairment (Chronic) Cyst of kidney, acquired Edema of left lower extremity Fatigue Gait instability Gastroesophageal reflux Hyperlipidemia Knee pain Laceration Memory loss, 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 Pain of right tibia Right knee pain Type 2 diabetes mellitus Urinary urgency Vitamin D deficiency Surgical History H/O: hysterectomy History of appendectomy Hx of knee surgery Family History Sister Diabetes Stroke Brother Diabetes Prostate cancer Father Lung disease Social History Preferred Language: [place] Communication Ability: Effective [place] Required: No Beliefs That Will Affect Care: None Current Living Situation: Alone Feels Safe at Home: Yes Smoking Status: Never smoker Hx Alcohol Use: Yes Alcohol type: wine Hx Substance Use: No caffeine: No Seatbelt Use: always Review of Systems Review of Systems: Due to patient mental status review of system was unobtainable/unreliable We'll attempt to obtain review of system as needed from staff and family Physical Exam Physical Exam: Physical examination General sedated postprocedure, appears to be in moderate distress HEENT: Atraumatic , normocephalic /no jaundice /no pallor /anicteric /severe dry mucous membranes Neck: Supple /no swelling /central trach Heart: S1/S2 irregular irregularity with rapid rate/no gallop /no rub /no murmur Lungs: Decreased air entry bilaterally, bilateral scattered rhonchi Abdomen: Patient is sedated so it is hard to gantry crane operator abdominal exam but overall soft/nontender/no guarding/no rebound/no organomegaly/no pulsatile mass Musculoskeletal: No swelling/no edema/no tenderness/normal range of motion Neuro exam: Sedated from anesthesia, nonverbal, was unable to evaluate Psychiatric evaluation: Unable to evaluate Skin: No rash on exposed skin area/no erythema Extremity: Normal pulse/no pitting edema/no clubbing or cyanosis Results & Data Vital Signs (Past 12 Hours) Vital Signs Temp Pulse Pulse Pulse Resp BP BP 06/15/19 17:15 101 H 18 97/63 L 06/15/19 17:00 96 H 18 115/59 L 06/15/19 16:50 107 H 18 119/57 L 06/15/19 16:40 36.7 C 107 H 18 113/67 06/15/19 16:30 110 H 18 110/60 06/15/19 16:20 113 H 18 110/61 06/15/19 16:10 101 H 18 118/65 06/15/19 16:03 37.2 C 109 H 18 101/65 06/15/19 15:03 125 H 124/59 L 06/15/19 14:58 146 H 118/77 06/15/19 13:50 36.6 C 136 H 22 143/89 H 06/15/19 13:43 132 H 22 170/99 H 06/15/19 13:31 141 H 21 06/15/19 13:30 133 H 21 178/88 H 06/15/19 13:15 136 H 20 162/70 H 06/15/19 13:01 90 20 165/105 H 06/15/19 13:00 90 23 06/15/19 12:31 86 17 178/85 H 06/15/19 12:30 87 20 06/15/19 12:02 85 18 06/15/19 12:01 89 17 151/96 H 06/15/19 12:00 90 14 06/15/19 11:40 89 18 06/15/19 11:31 93 H 21 06/15/19 11:30 92 H 18 173/73 H 06/15/19 11:25 92 H 23 159/83 H 06/15/19 11:24 92 H 17 06/15/19 10:40 89 20 06/15/19 10:30 93 H 19 06/15/19 10:20 91 H 20 06/15/19 10:10 94 H 24 06/15/19 10:02 36.8 C 92 H 91 H 21 138/81 138/81 06/15/19 10:00 96 H 21 06/15/19 09:56 98 H 15 06/15/19 09:35 99 H 19 144/73 H Pulse Ox 06/15/19 17:15 95 06/15/19 17:00 95 06/15/19 16:50 96 06/15/19 16:40 96 06/15/19 16:30 96 06/15/19 16:20 97 06/15/19 16:10 97 06/15/19 16:03 96 06/15/19 15:03 06/15/19 14:58 06/15/19 13:50 92 06/15/19 13:43 95 06/15/19 13:31 06/15/19 13:30 96 06/15/19 13:15 93 06/15/19 13:01 96 06/15/19 13:00 96 06/15/19 12:31 98 06/15/19 12:30 96 06/15/19 12:02 97 06/15/19 12:01 06/15/19 12:00 06/15/19 11:40 95 06/15/19 11:31 96 06/15/19 11:30 97 06/15/19 11:25 06/15/19 11:24 06/15/19 10:40 94 06/15/19 10:30 94 06/15/19 10:20 94 06/15/19 10:10 96 06/15/19 10:02 95 06/15/19 10:00 06/15/19 09:56 06/15/19 09:35 Critical Care Time 45 minutes total critical care time spent is greater than 50% in coordination of care (as documented) at patient's floor/unit and/or counseling patient/family discussion of care with nursing staff PG Care Time/CCT Total # of Minutes Spent Total Time Spent with Patient: Total time spent is greater than 50% in coordination of care (as documented) at patient's floor/unit and/or counseling patient:
[2019-06-15] MEDS ORDERED: PENDING 1/2NSS+40mEq KCL IVF SCH (17:57)
[2019-06-15] MEDS ORDERED: PENDING 1/2NSS+20mEq KCL IVF SCH (17:57)
[2019-06-15] MEDS ORDERED: LACTATED RINGER'S 1,000 ML IV SCH ×2 (17:57→19:00)
[2019-06-15] MEDS ORDERED: INSULIN REGULAR 250 UNITS in SODIUM CHLORIDE 0.9% 247.5 ML IV SCH (17:57)
[2019-06-15] MEDS ORDERED: CEFEPIME CONSULT ACTIVE ONE (17:57)
--- NOTE | 2019-06-15 18:03 | Billing Data ---
Coding Level of Care Code Critical Care 1st 30-74 mins
[2019-06-15] MEDS ORDERED: PHARMACY GLYCEMIC MGMT CONSULT PRN (18:31)
--- NOTE | 2019-06-15 18:34 | Critical Care Consultation ---
Date of Consultation June 15, 2019 Assessment & Plan (1) Admitted to intensive care unit: Patient is hemodynamic parameters are improving. She was in atrial fibrillation with rapid ventricular response and now has spontaneously returned to sinus rhythm. We will wean off her diltiazem. Obtain an echocardiogram tomorrow. We have given her 2 L of fluid with improvement in her blood pressure. We will check a lactate. Recheck her BMP. She did have an NBA which is likely ischemic ATN secondary to her sepsis. Continue vancomycin and Zosyn. MRSA screen is pending. Blood cultures and urine cultures are pending. TSH pending. LFTs are pending as well. Strict n.p.o. for now. CT had was negative. I suspect her encephalopathy is metabolic in origin from her sepsis. There is also concern of diabetic ketoacidosis. She has a normal anion gap and a normal pH on arterial blood gases. I do not suspect DKA at this time despite her elevated beta hydroxybutyrate. I would also avoid insulin until her potassium is corrected. Troponin pending. I have personally spent 44 minutes of critical care time in the direct management of this patient. This is a life/limb threatening event. This includes time spent evaluating patient, direct bedside care, chart review, placing orders, interpretation of diagnostic studies, discussion with consultants, patient, and family members, as well as other required patient management activities. This time is exclusive of all separately billable procedures, and teaching time and separate from and in addition to any other critical care service time. Thank you for allowing us to participate in the care of this patient. (2) Metabolic encephalopathy: (3) Complicated urinary tract infection: (4) Severe sepsis: (5) Acute kidney injury: History of Present Illness Reason for Consultation: Atrial fibrillation with rapid ventricular response and metabolic encephalopathy Attending Physician: Keith Arevalo MD History of Present Illness This is an 84-year-old female with past medical history of mild dementia, recurrent urinary tract infection, diabetes mellitus type 2 and dyslipidemia who presented to the emergency department secondary to a fall that occurred this weekend. The history from the patient is unobtainable due to her medical condition. The patient son states that the patient was found by a family member and was naked in her room. She has been unresponsive for an unknown period of time. The son last spoke with the patient approximately and she was normal at that time. She is relatively functional at baseline and is able to drive and take care of herself. She lives alone. She does have a history of urinary tract infection and had an admission to the hospital earlier this year due to urinary tract infection. Upon admission to the hospital she was found to have an elevated white count of 30,000. CT head, chest x-ray and shoulder x-rays were negative. CT scan of the abdomen pelvis showed moderate left hydronephrosis with an obstructing 6 mm proximal left ureteral calculus. Urology was contacted and placed the double-J stent. Subsequent to that she was found to be in atrial fibrillation with rapid ventricular response and placed on Cardizem. There is also concern for DKA. Allergies Allergy/AdvReac Type Severity Reaction Status Date / Time adhesive Allergy Unknown SKIN Verified 06/15/19 11:03 BLISTERS tetanus toxoid, adsorbed Allergy Unknown EDEMA AT Verified 06/15/19 11:03 SITE codeine AdvReac Unknown HEART Verified 06/15/19 11:03 PALPITATIONS, RECIEVED MORPHINE IV IN 2004 ADMIT Home Medications Home Medications Medication Instructions Recorded Confirmed Type calcium carbonate 600 mg calcium 600 mg PO QAM tab 01/01/19 06/15/19 History (1,500 mg) tablet cholecalciferol (vitamin D3) 50 2,000 units PO QAM cap 01/01/19 06/15/19 History mcg (2,000 unit) capsule coenzyme Q10 10 10 mg capsule 10 mg PO DAILY cap 01/01/19 06/15/19 History glimepiride 2 mg tablet 4 mg PO DAILY #180 tab 01/01/19 06/15/19 History multivitamin 1 tab PO DAILY 01/01/19 06/15/19 History omega-3 acid ethyl esters 1 gram 2 cap PO QAM cap 01/01/19 06/15/19 History capsule tolterodine 4 mg capsule,extended 4 mg PO DAILY #90 cap 01/01/19 06/15/19 History release 24 hr vitamin B complex 1 tab PO DAILY 01/01/19 06/15/19 History celecoxib [Celebrex] 200 mg PO QAM 06/15/19 06/15/19 History donepezil 10 mg tablet See Rx Instructions .ROUTE 06/15/19 Rx .COMPLEX #90 tab psyllium husk [Metamucil] 0 g PO UD 06/15/19 06/15/19 History simvastatin 20 mg PO HS 06/15/19 06/15/19 History tramadol 50 mg PO QAM 06/15/19 06/15/19 History Patient History Medical History Abnormal finding on imaging Cognitive impairment (Chronic) Cyst of kidney, acquired Edema of left lower extremity Fatigue Gait instability Gastroesophageal reflux Hyperlipidemia Knee pain Laceration Memory loss, 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 Pain of right tibia Right knee pain Type 2 diabetes mellitus Urinary urgency Vitamin D deficiency Surgical History H/O: hysterectomy History of appendectomy Hx of knee surgery Family History Sister Diabetes Stroke Brother Diabetes Prostate cancer Father Lung disease Social History Preferred Language: Estonian Communication Ability: Effective Packaging Technician Required: No Beliefs That Will Affect Care: None Current Living Situation: Alone Other Information That Helps Us Care for You: No Feels Safe at Home: Yes Safety Concerns: Feels Safe At This Time Smoking Status: Former smoker Do You Dip or Chew Tobacco: No ; Second Hand Exposure: No ; Tobacco Cessation Education Requested by Patient: No Hx Alcohol Use: No Hx Substance Use: No caffeine: No Seatbelt Use: always Review of Systems Review of Systems: Unobtainable due to reduced consciousness Physical Exam Constitutional: Elderly appearing. Frail. Disoriented. Lying in bed. Eyes: Small pupils bilaterally responsive to light. ENMT: external ear and nose normal, oropharynx normal Neck: trachea midline, no thyromegaly Respiratory: normal respiratory effort, lungs clear to auscultation Cardiovascular: RRR, no murmur, no edema Gastrointestinal (Abdomen): normal bowel sounds, soft, nontender, no hepatosplenomegaly Musculoskeletal: no cyanosis or clubbing, extremities motor strength 5/5 Skin: no rashes, warm and dry Oral mucosa dry Neurologic: Confused. Moving all extremities spontaneously. Results & Data Vital Signs (Past 12 Hours) Vital Signs Temp Pulse Pulse Pulse Resp BP BP 06/15/19 18:01 80 24 06/15/19 18:00 82 25 H 110/67 06/15/19 17:45 103 H 27 H 107/66 06/15/19 17:38 101 H 27 H 104/68 06/15/19 17:36 112 H 25 H 06/15/19 17:32 141 H 31 H 53/48 L 06/15/19 17:30 114 H 18 06/15/19 17:25 92 H 28 H 105/54 L 06/15/19 17:24 93 H 16 06/15/19 17:15 101 H 18 97/63 L 06/15/19 17:00 96 H 18 115/59 L 06/15/19 16:50 107 H 18 119/57 L 06/15/19 16:40 98.1 F 107 H 18 113/67 06/15/19 16:30 110 H 18 110/60 06/15/19 16:20 113 H 18 110/61 06/15/19 16:10 101 H 18 118/65 06/15/19 16:03 99.0 F 109 H 18 101/65 06/15/19 15:03 125 H 124/59 L 06/15/19 14:58 146 H 118/77 06/15/19 13:50 97.9 F 136 H 22 143/89 H 06/15/19 13:43 132 H 22 170/99 H 06/15/19 13:31 141 H 21 06/15/19 13:30 133 H 21 178/88 H 06/15/19 13:15 136 H 20 162/70 H 06/15/19 13:01 90 20 165/105 H 06/15/19 13:00 90 23 06/15/19 12:31 86 17 178/85 H 06/15/19 12:30 87 20 06/15/19 12:02 85 18 06/15/19 12:01 89 17 151/96 H 06/15/19 12:00 90 14 06/15/19 11:40 89 18 06/15/19 11:31 93 H 21 06/15/19 11:30 92 H 18 173/73 H 06/15/19 11:25 92 H 23 159/83 H 06/15/19 11:24 92 H 17 06/15/19 10:40 89 20 06/15/19 10:30 93 H 19 06/15/19 10:20 91 H 20 06/15/19 10:10 94 H 24 06/15/19 10:02 98.2 F 92 H 91 H 21 138/81 138/81 06/15/19 10:00 96 H 21 06/15/19 09:56 98 H 15 06/15/19 09:35 99 H 19 144/73 H Pulse Ox 06/15/19 18:01 97 06/15/19 18:00 97 06/15/19 17:45 98 06/15/19 17:38 97 06/15/19 17:36 96 06/15/19 17:32 97 06/15/19 17:30 95 06/15/19 17:25 96 06/15/19 17:24 95 06/15/19 17:15 95 06/15/19 17:00 95 06/15/19 16:50 96 06/15/19 16:40 96 06/15/19 16:30 96 06/15/19 16:20 97 06/15/19 16:10 97 06/15/19 16:03 96 06/15/19 15:03 06/15/19 14:58 06/15/19 13:50 92 06/15/19 13:43 95 06/15/19 13:31 06/15/19 13:30 96 06/15/19 13:15 93 06/15/19 13:01 96 06/15/19 13:00 96 06/15/19 12:31 98 06/15/19 12:30 96 06/15/19 12:02 97 06/15/19 12:01 06/15/19 12:00 06/15/19 11:40 95 06/15/19 11:31 96 06/15/19 11:30 97 06/15/19 11:25 06/15/19 11:24 06/15/19 10:40 94 06/15/19 10:30 94 06/15/19 10:20 94 06/15/19 10:10 96 06/15/19 10:02 95 06/15/19 10:00 06/15/19 09:56 06/15/19 09:35 I personally reviewed the patient's pertinent labs and chest imaging. Coding Level of Care Code Critical Care 1st 30-74 mins Diagnoses Admitted to intensive care unit Z78.9 Metabolic encephalopathy G93.41 Complicated urinary tract infection N39.0 Severe sepsis A41.9; R65.20 Acute kidney injury N17.9
[2019-06-15 18:37] LABS: Hematocrit (blood only) 38.6 % (37-47); Hemoglobin 13.6 g/dL (12.0-16.0); Mean Corpuscular Hemoglobin 32.3 pg (25-34); Mean Corpuscular Volume 91.7 fL (80-100); Mean Platelet Volume 10.3 fL (7.4-10.4); Platelet Count 148 K/uL (130-400); RDW Coefficient of Variation 13.7 % (11.5-14.5); RDW Standard Deviation 45.8 fL (36.4-46.3); Red Blood Count 4.21 M/uL (4.2-5.4); White Blood Count 27.42 K/uL (4.8-10.8)
[2019-06-15 18:41] LABS: Base Excess ABG -3.8 mEq/L (-9-1.8); HCO3 ABG 20 mmol/L (19-24); PCO2 ABG 32 mmHg (35-46); PO2 ABG 89 mm/Hg (80-95); pH ABG 7.41 (7.35-7.45)
[2019-06-15 18:44] LABS: INR 1.3 (0.9-1.1); Prothrombin Time 12.7 Seconds (9.0-12.0)
[2019-06-15 18:47] LABS: Allen Test POS (Pos)
[2019-06-15 19:04] LABS: Albumin Level 2.2 gm/dl (3.4-5.0); Bilirubin Direct 0.4 mg/dl (0-0.2); Calcium 8.6 mg/dl (8.5-10.1); Creatinine Clr Calc Pharmacy 41.4 ml/min; Est GFR (African American) 53.2; Est GFR (Non-African American) 45.9; Magnesium 1.6 mg/dl (1.8-2.4); Potassium 3.3 mmol/L (3.5-5.1)
[2019-06-15 19:07] LABS: Mean Corpuscular Hgb Conc 35.2 g/dL (32-36)
[2019-06-15 19:10] LABS: Basophils # (auto) 0.01 K/uL (0-0.2); Echinocytes 1+; Immature Granulocytes # (auto) 0.73 K/uL (0.00-0.02); Immature Granulocytes % (auto) 2.7 %; Lymphocytes # (auto) 0.56 K/uL (1.2-3.4); Monocytes # (auto) 0.65 K/uL (0.11-0.59); Monocytes % (auto) 2.4 %; Neutrophils # (auto) 25.47 K/uL (1.4-6.5); Neutrophils % (auto) 92.9 %
[2019-06-15] MEDS: POTASSIUM CHLORIDE / WTR 10 MEQ/100 ML PLCT IV SCH ×3 (19:20→21:32)
[2019-06-15 19:25] LABS: Thyroid Stimulating Hormone 2.32 uIu/ml (0.300-4.500); Total Protein 5.6 gm/dl (6.4-8.2)
[2019-06-15 19:28] LABS: Magnesium 1.7 mg/dl (1.8-2.4); Phosphorus 1.6 mg/dl (2.5-4.9); Troponin I 0.097 ng/ml (0-0.045)
--- NOTE | 2019-06-15 20:02 | Pharmacy Report ---
Pharmacy Abx Dose Short Note - Date of Service June 15, 2019 - Assessment & Plan Assessment 84 year old F receiving vancomycin/zosyn for treatment of septic shock. Day # 1/? of antimicrobial therapy. Pt's baseline eCrCl closer to 50-60cc/min. Current eCrCl 30cc/min. We will dose her vanco closer to baseline renal fxn. Pt population p'kinetics based on eCrCl of ~50cc/min: t1/2=15hr, ke 0.0459. BC and UC are all drawn and pending. If renal fxn dose not improve, please adj vanco dosing interval appropriately. Plan Vancomycin * Vanco 2g IV x1 given in ED * then Vancomycin 1250mg (15mg/kg) q18 set to start 0400 06/16/19 * goal trough 15-20mcg/mL * we will get an early trough, see MAR for further details Zosyn * appropriately dosed based on habitus and renal fxn. Pharmacy will continue to follow and will adjust dose/frequency as necessary. Thank you.
[2019-06-15] MEDS ORDERED: POTASSIUM PHOSPHATE 30 MMOL in SODIUM CHLORIDE 0.9% 500 ML IV ONE (20:15)
[2019-06-15] MEDS: INSULIN ASPART 100 UNITS/ML 3 ML PEN SC SCH ×2 (20:31→23:44)
[2019-06-15] MEDS: PIPERACILLIN/TAZOBACTAM 3.375 GM in DEXTROSE 5% 100 ML IV SCH (20:32)
[2019-06-15] MEDS: SIMVASTATIN 20 MG TAB PO SCH (20:33)
[2019-06-15] MEDS ORDERED: CARBOHYDRATES FOR HYPOGLYCEMIA PO PRN (21:45)
[2019-06-15] MEDS ORDERED: DEXTROSE 50% 50 ML SYRINGE IV PRN (21:45)
[2019-06-15] MEDS ORDERED: GLUCAGON FOR INJ 1 MG VIAL SQ PRN (21:45)
[2019-06-15] MEDS ORDERED: GLUCOSE 40% GEL 15 GM TUBE PO PRN (21:45)
[2019-06-15] MEDS ORDERED: GLUCOSE 10 TABS/TUBE PO PRN (21:45)
[2019-06-15] MEDS: MAGNESIUM SULFATE / D5W 1 GM/100 ML BAG IV SCH ×2 (22:33→23:40)
[2019-06-16] MEDS: INSULIN ASPART 100 UNITS/ML 3 ML PEN SC SCH ×4 (03:33→20:30)
[2019-06-16] MEDS: PIPERACILLIN/TAZOBACTAM 3.375 GM in DEXTROSE 5% 100 ML IV SCH ×3 (03:38→21:21)
[2019-06-16] MEDS ORDERED: VANCOMYCIN HCL 1,250 MG in SODIUM CHLORIDE 0.9% 250 ML IV SCH (04:00)
[2019-06-16] MEDS ORDERED: INSULIN ASPART 100 UNITS/ML 3 ML PEN SC SCH (05:34)
[2019-06-16 06:04] LABS: Hematocrit (blood only) 36.6 % (37-47); Hemoglobin 12.5 g/dL (12.0-16.0); Mean Corpuscular Hemoglobin 31.4 pg (25-34); Mean Corpuscular Hgb Conc 34.2 g/dL (32-36); Mean Platelet Volume 10.4 fL (7.4-10.4); Platelet Count 139 K/uL (130-400); RDW Coefficient of Variation 14.3 % (11.5-14.5); RDW Standard Deviation 47.9 fL (36.4-46.3); Red Blood Count 3.98 M/uL (4.2-5.4); White Blood Count 24.99 K/uL (4.8-10.8)
[2019-06-16 06:27] LABS: Estimated Average Glucose 128 mg/dl; Hemoglobin A1C 6.1 % (4.5-5.6)
[2019-06-16 06:28] LABS: Basophils # (auto) 0.01 K/uL (0-0.2); Echinocytes 1+; Eosinophils # (auto) 0.02 K/uL (0-0.5); Eosinophils % (auto) 0.1 %; Immature Granulocytes # (auto) 0.16 K/uL (0.00-0.02); Immature Granulocytes % (auto) 0.6 %; Lymphocytes # (auto) 1.71 K/uL (1.2-3.4); Lymphocytes % (auto) 6.8 %; Monocytes % (auto) 4.8 %; Neutrophils # (auto) 21.89 K/uL (1.4-6.5); Neutrophils % (auto) 87.7 %; Toxic Vacuolation 1+
[2019-06-16 06:30] LABS: Albumin Level 2.1 gm/dl (3.4-5.0); BUN Creatinine Ratio 45.4 (10-20); Bilirubin Direct 0.3 mg/dl (0-0.2); Bilirubin,Total 0.6 mg/dl (0.2-1); Calcium 8.6 mg/dl (8.5-10.1); Creatinine Clr Calc Pharmacy 41.7 ml/min; Est GFR (African American) 53.8; Est GFR (Non-African American) 46.4; Potassium 3.9 mmol/L (3.5-5.1); Total Protein 5.6 gm/dl (6.4-8.2)
[2019-06-16] MEDS ORDERED: INSULIN GLARGINE SOLOSTAR 100 UNITS/ML 3 ML PEN SC ONE (07:30)
--- NOTE | 2019-06-16 08:07 | Anesthesiology Progress Note ---
Date of Service June 16, 2019 Anesthesia Post Procedure Vital Signs Vital Signs: Temp Pulse Pulse Pulse Resp BP BP 06/16/19 06:00 37.1 C 88 16 06/16/19 05:00 67 18 118/49 L 06/16/19 04:30 69 19 122/53 L 06/16/19 04:01 70 20 06/16/19 04:00 70 20 130/53 L 06/16/19 03:31 71 20 118/55 L 06/16/19 03:01 65 15 06/16/19 03:00 66 15 101/48 L 06/16/19 02:30 65 15 106/43 L 06/16/19 02:01 65 16 06/16/19 02:00 66 17 112/47 L 06/16/19 01:30 68 20 117/52 L 06/16/19 01:00 68 19 117/48 L 06/16/19 00:30 67 20 119/50 L 06/16/19 00:01 68 20 06/16/19 00:00 68 21 132/52 L 06/15/19 23:30 65 18 98/49 L 06/15/19 23:01 64 18 06/15/19 23:00 64 18 117/48 L 06/15/19 22:31 68 17 06/15/19 22:30 69 17 130/49 L 06/15/19 22:01 69 17 06/15/19 22:00 67 17 113/45 L 06/15/19 21:37 78 06/15/19 21:31 75 19 06/15/19 21:30 73 19 137/49 L 06/15/19 21:01 72 18 06/15/19 21:00 73 16 134/49 L 06/15/19 20:30 77 22 126/49 L 06/15/19 20:00 79 19 113/56 L 06/15/19 19:52 84 16 136/52 L 06/15/19 19:30 83 23 06/15/19 19:15 81 23 101/52 L 06/15/19 19:01 80 22 06/15/19 19:00 80 22 118/54 L 06/15/19 18:45 77 22 98/52 L 06/15/19 18:30 81 22 124/52 L 06/15/19 18:18 87 24 06/15/19 18:16 83 18 06/15/19 18:15 88 22 06/15/19 18:01 80 24 06/15/19 18:00 82 25 H 110/67 06/15/19 17:45 103 H 27 H 107/66 06/15/19 17:38 101 H 27 H 104/68 06/15/19 17:36 112 H 25 H 06/15/19 17:32 141 H 31 H 53/48 L 06/15/19 17:30 114 H 18 06/15/19 17:25 36.8 C 92 H 87 24 105/54 L 124/52 L 06/15/19 17:24 93 H 16 06/15/19 17:15 101 H 18 06/15/19 17:00 96 H 18 06/15/19 16:50 107 H 18 06/15/19 16:40 36.7 C 107 H 18 06/15/19 16:30 110 H 18 06/15/19 16:20 113 H 18 06/15/19 16:10 101 H 18 06/15/19 16:03 37.2 C 109 H 18 06/15/19 15:03 125 H 124/59 L 06/15/19 14:58 146 H 118/77 06/15/19 13:50 36.6 C 136 H 22 06/15/19 13:43 132 H 22 170/99 H 06/15/19 13:31 141 H 21 06/15/19 13:30 133 H 21 178/88 H 06/15/19 13:15 136 H 20 162/70 H 06/15/19 13:01 90 20 165/105 H 06/15/19 13:00 90 23 06/15/19 12:31 86 17 178/85 H 06/15/19 12:30 87 20 06/15/19 12:02 85 18 06/15/19 12:01 89 17 151/96 H 06/15/19 12:00 90 14 06/15/19 11:40 89 18 06/15/19 11:31 93 H 21 06/15/19 11:30 92 H 18 173/73 H 06/15/19 11:25 92 H 23 159/83 H 06/15/19 11:24 92 H 17 06/15/19 10:40 89 20 06/15/19 10:30 93 H 19 12/09/19 10:20 91 H 20 06/15/19 10:10 94 H 24 06/15/19 10:02 36.8 C 92 H 91 H 21 138/81 06/15/19 10:00 96 H 21 06/15/19 09:56 98 H 15 06/15/19 09:35 99 H 19 144/73 H BP Pulse Ox 06/16/19 06:00 127/51 L 98 06/16/19 05:00 92 06/16/19 04:30 95 06/16/19 04:01 96 06/16/19 04:00 96 06/16/19 03:31 95 06/16/19 03:01 95 06/16/19 03:00 95 06/16/19 02:30 95 06/16/19 02:01 94 06/16/19 02:00 94 06/16/19 01:30 95 06/16/19 01:00 95 06/16/19 00:30 96 06/16/19 00:01 95 06/16/19 00:00 96 06/15/19 23:30 95 06/15/19 23:01 95 06/15/19 23:00 96 06/15/19 22:31 95 06/15/19 22:30 95 06/15/19 22:01 95 06/15/19 22:00 93 06/15/19 21:37 06/15/19 21:31 97 06/15/19 21:30 96 06/15/19 21:01 98 06/15/19 21:00 99 06/15/19 20:30 97 06/15/19 20:00 92 06/15/19 19:52 94 06/15/19 19:30 97 06/15/19 19:15 99 06/15/19 19:01 100 06/15/19 19:00 100 06/15/19 18:45 100 06/15/19 18:30 100 06/15/19 18:18 99 06/15/19 18:16 100 06/15/19 18:15 99 06/15/19 18:01 97 06/15/19 18:00 97 06/15/19 17:45 98 06/15/19 17:38 97 06/15/19 17:36 96 06/15/19 17:32 97 06/15/19 17:30 95 06/15/19 17:25 100 06/15/19 17:24 95 06/15/19 17:15 97/63 L 95 06/15/19 17:00 115/59 L 95 06/15/19 16:50 119/57 L 96 06/15/19 16:40 113/67 96 06/15/19 16:30 110/60 96 06/15/19 16:20 110/61 97 06/15/19 16:10 118/65 97 06/15/19 16:03 101/65 96 06/15/19 15:03 06/15/19 14:58 06/15/19 13:50 143/89 H 92 06/15/19 13:43 95 06/15/19 13:31 06/15/19 13:30 96 06/15/19 13:15 93 06/15/19 13:01 96 06/15/19 13:00 96 06/15/19 12:31 98 06/15/19 12:30 96 06/15/19 12:02 97 06/15/19 12:01 06/15/19 12:00 06/15/19 11:40 95 06/15/19 11:31 96 06/15/19 11:30 97 06/15/19 11:25 06/15/19 11:24 06/15/19 10:40 94 06/15/19 10:30 94 06/15/19 10:20 94 06/15/19 10:10 96 06/15/19 10:02 138/81 95 06/15/19 10:00 06/15/19 09:56 06/15/19 09:35 Notes Mental Status: alert / awake / arousable and participated in evaluation Patient Amnestic to Procedure: Yes Nausea / Vomiting: adequately controlled Pain: adequately controlled Airway Patency, RR, SpO2: stable & adequate BP & HR: stable & adequate Hydration State: stable & adequate Anesthetic Complications: no major complications apparent
[2019-06-16] MEDS ORDERED: TRAMADOL HCL 50 MG TABLET PO SCH (09:00)
[2019-06-16] MEDS ORDERED: CALCIUM 600MG + VIT D 400 IU TAB PO SCH (09:00)
--- NOTE | 2019-06-16 10:24 | Critical Care Progress Note ---
Date of Service June 16, 2019 Assessment & Plan (1) Admitted to intensive care unit: Reason Critically Ill: 84-year-old female here for uti/ams/sepesis/new onset afib found down for unknown period of time. Past medical history significant for mild dementia, recurrent urinary tract infection, diabetes mellitus type 2 and dyslipidemia Neuro: -[facility]: NEGATIVE metabolic encephalopathy Patient presented with altered mental status likely secondary to sepsis. Patient continues to improve with antibiotic therapy and we expect her mental status to continue to improve. -Monitor for signs and symptoms of recurrence -Bright lights during the day to prevent Cardiac: New onset atrial fibrillation Patient had an episode of atrial fibrillation intraoperatively, this continued no immediate postoperative period. This is her first episode of atrial fibrillation, she has no history of it previously. She was on a diltiazem drip and maintained on it until approximately 7 PM yesterday when she converted to normal sinus rhythm. -Maintaining normal sinus rhythm off diltiazem Monitor on telemetry -f/u echo -may require holter monitor on d/c Respiratory: -stable no concerns, maintaining airway GI: -DM II diet RENAL/LYTES: -No significant electrolyte derangement. -Replace lytes as needed. NBA: Creatinine on presentation was 1.54. Patient was maintained on IVF. Creatinine trended down to 1.1 and was 1.10 this morning. Indicating NBA is resolved -trend daily BMP : - No concerns at this time. ENDO: DMII On diabetic diet -glycemic consult placed HEME: - Stable H&H. ID: [id number]: Patient presented with urine studies concerning for UTI. Urine cultures were negative. Blood cultures demonstrated gram-negative bacilli gram-positive cocci in chains, gram-negative bacilli found in both cultures. Patient currently is on Zosyn and vancomycin and improving from a clinical standpoint has been afebrile since admission. -MRSA negative DC Vanco -Continue Zosyn -Consider transition to p.o. pending culture results INTEGUMENTARY: -No acute concerns are present LINES/IV ACCESS: -PIVs intact. DVT PROPHYLAXIS: -Lovenox Dispo: Stable for transition to general medical floor w/ tele Thank you for allowing us to be part of this patient's care. Please refer to Dr. John's documentation for any further recommendations. (2) Severe sepsis: (3) Complicated urinary tract infection: (4) Metabolic encephalopathy: (5) Acute kidney injury (NBA) with acute tubular necrosis (ATN): (6) Severe sepsis with acute organ dysfunction: (7) Atrial fibrillation with RVR: (8) Hydronephrosis with obstructing calculus: Supervising Physician Co-Signing Physician Notes Dr. Freeman was the resident-physician during care of patient. I separately evaluated patient for javier portions of the history and the exam. I was present during the critical portion of medical decision making, and I discussed the case with the resident. I generally agree with the findings and plan except for any additions/exceptions noted. Patient is doing very well today. She is more awake and alert. She is able to answer some questions appropriately including her name and the president. She is aware that she is here after falling down at home. Her renal function appears to be improving. She has blood cultures that are positive for gram- negative rods. She has 1 blood culture that is also positive for GPC. Her MRSA screen was negative and we have discontinued the vancomycin. We will continue the Zosyn for now until the cultures have speciated and sensitivities are available. Her procalcitonin is trending down. Repeat blood cultures have been ordered. She did have some atrial fibrillation with rapid ventricular response yesterday which has resolved. She is off diltiazem drip. We are not using anything for rate control at this time given that her heart rate has been less than 100 and is in sinus rhythm. He may need to be sent home with a Holter monitor. We have also consulted wound care given the wounds on her knees and abdomen after falling. We have also added Lovenox for chemical DVT prophylaxis we will advance her diet as tolerated. She is stable to be transferred to the floor with telemetry. Subjective Patient sitting up in bed this morning in no acute distress. Patient did well overnight, she resume normal sinus rhythm, diltiazem drip she did not require pressors she continues on Vanco and Zosyn. From a clinical standpoint patient continues to improve. She is slowly becoming more responsive she knew where she was and who the president was. She also had that she had been brought to the hospital. No acute concerns all questions answered. Physical Exam Physical Exam: Constitutional: Elderly appearing. Frail. Lying in bed. ENMT: external ear and nose normal, oropharynx normal Neck: trachea midline, no thyromegaly Respiratory: normal respiratory effort, lungs clear to auscultation Cardiovascular: RRR, no murmur, no edema Gastrointestinal (Abdomen): normal bowel sounds, soft, nontender, no hepatosplenomegaly Musculoskeletal: no cyanosis or clubbing, extremities motor strength 5/5 Skin: no rashes, warm and dry Oral mucosa dry Neurologic: Confused. Moving all extremities spontaneously. Results & Data Vital Signs (Past 12 Hours) Vital Signs Temp Pulse Pulse Resp BP BP Pulse Ox 06/16/19 08:31 76 23 127/54 L 95 06/16/19 08:00 72 19 138/56 L 96 06/16/19 07:30 75 22 135/58 L 96 06/16/19 07:00 72 19 133/57 L 96 06/16/19 06:00 37.1 C 88 16 127/51 L 98 06/16/19 05:00 67 18 118/49 L 92 06/16/19 04:30 69 19 122/53 L 95 06/16/19 04:01 70 20 96 06/16/19 04:00 70 20 130/53 L 96 06/16/19 03:31 71 20 118/55 L 95 06/16/19 03:01 65 15 95 06/16/19 03:00 66 15 101/48 L 95 06/16/19 02:30 65 15 106/43 L 95 06/16/19 02:01 65 16 94 06/16/19 02:00 66 17 112/47 L 94 06/16/19 01:30 68 20 117/52 L 95 06/16/19 01:00 68 19 117/48 L 95 06/16/19 00:30 67 20 119/50 L 96 06/16/19 00:01 68 20 95 06/16/19 00:00 68 21 132/52 L 96 06/15/19 23:30 65 18 98/49 L 95 06/15/19 23:01 64 18 95 06/15/19 23:00 64 18 117/48 L 96 06/15/19 22:31 68 17 95 06/15/19 22:30 69 17 130/49 L 95 Laboratory Results 06/16/19 06/16/19 06/16/19 Range/Units 11:15 07:57 06:00 WBC (4.8-10.8) K/uL RBC (4.2-5.4) M/uL Hgb (12.0-16.0) g/dL Hct (37-47) % MCV (80-100) fL MCH (25-34) pg MCHC (32-36) g/dL RDW Std Deviation (36.4-46.3) fL RDW Coeff of Junie (11.5-14.5) % Plt Count (130-400) K/uL MPV (7.4-10.4) fL Immature Gran % (Auto) % Neut % (Auto) % Lymph % (Auto) % [place] % (Auto) % Eos % (Auto) % Baso % (Auto) % Immature Gran # (Auto) (0.00-0.02) K/uL Neut # (Auto) (1.4-6.5) K/uL Lymph # (Auto) (1.2-3.4) K/uL [place] # (Auto) (0.11-0.59) K/uL Eos # (Auto) (0-0.5) K/uL Baso # (Auto) (0-0.2) K/uL Toxic Vacuolation Echinocytes PT (9.0-12.0) Seconds INR (0.9-1.1) ABG pH (7.35-7.45) ABG pCO2 (35-46) mmHg ABG pO2 (80-95) mm/Hg ABG HCO3 (19-24) mmol/L ABG O2 Saturation (90-95) % ABG Base Excess (-9-1.8) mEq/L Jacob Test (Pos) Barometric Pressure mm/Hg Oxygen Given Sodium (136-145) mmol/L Potassium (3.5-5.1) mmol/L Chloride (98-107) mmol/L Carbon Dioxide (21-32) mmol/L Anion Gap (3-11) BUN (7-18) mg/dl Creatinine (0.6-1.2) mg/dl Est Cr Clr Drug Dosing ml/min Est GFR ( Amer) Est GFR (Non-Af Amer) BUN/Creatinine Ratio (10-20) Glucose (70-99) mg/dl POC Glucose 158 H 148 H (70-99) Estimat Average Glucose mg/dl Hemoglobin A1c (4.5-5.6) % Lactate (0.4-2.0) mmol/L Calcium (8.5-10.1) mg/dl Phosphorus 2.7 D (2.5-4.9) mg/dl Magnesium (1.8-2.4) mg/dl Total Bilirubin (0.2-1) mg/dl Direct Bilirubin (0-0.2) mg/dl AST (15-37) U/L ALT (12-78) U/L Alkaline Phosphatase (45-117) U/L Total Creatine Kinase (26-192) U/L Troponin I (0-0.045) ng/ml Total Protein (6.4-8.2) gm/dl Albumin (3.4-5.0) gm/dl Procalcitonin (0-0.5) ng/ml TSH (0.300-4.500) uIu/ml Nasal Screen MRSA (PCR) (Negative) 06/16/19 06/16/19 06/16/19 Range/Units 06:00 06:00 06:00 WBC (4.8-10.8) K/uL RBC (4.2-5.4) M/uL Hgb (12.0-16.0) g/dL Hct (37-47) % MCV (80-100) fL MCH (25-34) pg MCHC (32-36) g/dL RDW Std Deviation (36.4-46.3) fL RDW Coeff of Junie (11.5-14.5) % Plt Count (130-400) K/uL MPV (7.4-10.4) fL Immature Gran % (Auto) % Neut % (Auto) % Lymph % (Auto) % [place] % (Auto) % Eos % (Auto) % Baso % (Auto) % Immature Gran # (Auto) (0.00-0.02) K/uL Neut # (Auto) (1.4-6.5) K/uL Lymph # (Auto) (1.2-3.4) K/uL [place] # (Auto) (0.11-0.59) K/uL Eos # (Auto) (0-0.5) K/uL Baso # (Auto) (0-0.2) K/uL Toxic Vacuolation Echinocytes PT (9.0-12.0) Seconds INR (0.9-1.1) ABG pH (7.35-7.45) ABG pCO2 (35-46) mmHg ABG pO2 (80-95) mm/Hg ABG HCO3 (19-24) mmol/L ABG O2 Saturation (90-95) % ABG Base Excess (-9-1.8) mEq/L Jacob Test (Pos) Barometric Pressure mm/Hg Oxygen Given Sodium (136-145) mmol/L Potassium (3.5-5.1) mmol/L Chloride (98-107) mmol/L Carbon Dioxide (21-32) mmol/L Anion Gap (3-11) BUN (7-18) mg/dl Creatinine (0.6-1.2) mg/dl Est Cr Clr Drug Dosing ml/min Est GFR ( Amer) Est GFR (Non-Af Amer) BUN/Creatinine Ratio (10-20) Glucose (70-99) mg/dl POC Glucose (70-99) Estimat Average Glucose mg/dl Hemoglobin A1c (4.5-5.6) % Lactate 1.6 (0.4-2.0) mmol/L Calcium (8.5-10.1) mg/dl Phosphorus (2.5-4.9) mg/dl Magnesium (1.8-2.4) mg/dl Total Bilirubin (0.2-1) mg/dl Direct Bilirubin (0-0.2) mg/dl AST (15-37) U/L ALT (12-78) U/L Alkaline Phosphatase (45-117) U/L Total Creatine Kinase (26-192) U/L Troponin I 0.082 H* (0-0.045) ng/ml Total Protein (6.4-8.2) gm/dl Albumin (3.4-5.0) gm/dl Procalcitonin 63.34 H (0-0.5) ng/ml TSH (0.300-4.500) uIu/ml Nasal Screen MRSA (PCR) (Negative) 06/16/19 06/16/19 06/16/19 Range/Units 06:00 06:00 03:30 WBC 24.99 H (4.8-10.8) K/uL RBC 3.98 L (4.2-5.4) M/uL Hgb 12.5 (12.0-16.0) g/dL Hct 36.6 L (37-47) % MCV 92.0 (80-100) fL MCH 31.4 (25-34) pg MCHC 34.2 (32-36) g/dL RDW Std Deviation 47.9 H (36.4-46.3) fL RDW Coeff of Junie 14.3 (11.5-14.5) % Plt Count 139 (130-400) K/uL MPV 10.4 (7.4-10.4) fL Immature Gran % (Auto) 0.6 % Neut % (Auto) 87.7 % Lymph % (Auto) 6.8 % [place] % (Auto) 4.8 % Eos % (Auto) 0.1 % Baso % (Auto) 0.0 % Immature Gran # (Auto) 0.16 H (0.00-0.02) K/uL Neut # (Auto) 21.89 H (1.4-6.5) K/uL Lymph # (Auto) 1.71 (1.2-3.4) K/uL [place] # (Auto) 1.20 H (0.11-0.59) K/uL Eos # (Auto) 0.02 (0-0.5) K/uL Baso # (Auto) 0.01 (0-0.2) K/uL Toxic Vacuolation 1+ Echinocytes 1+ PT (9.0-12.0) Seconds INR (0.9-1.1) ABG pH (7.35-7.45) ABG pCO2 (35-46) mmHg ABG pO2 (80-95) mm/Hg ABG HCO3 (19-24) mmol/L ABG O2 Saturation (90-95) % ABG Base Excess (-9-1.8) mEq/L Jacob Test (Pos) Barometric Pressure mm/Hg Oxygen Given Sodium 143 (136-145) mmol/L Potassium 3.9 D (3.5-5.1) mmol/L Chloride 114 H (98-107) mmol/L Carbon Dioxide 25 (21-32) mmol/L Anion Gap 4.0 (3-11) BUN 50 H (7-18) mg/dl Creatinine 1.10 (0.6-1.2) mg/dl Est Cr Clr Drug Dosing 41.7 ml/min Est GFR ( Amer) 53.8 Est GFR (Non-Af Amer) 46.4 BUN/Creatinine Ratio 45.4 H (10-20) Glucose 172 H (70-99) mg/dl POC Glucose 227 H (70-99) Estimat Average Glucose mg/dl Hemoglobin A1c (4.5-5.6) % Lactate (0.4-2.0) mmol/L Calcium 8.6 (8.5-10.1) mg/dl Phosphorus (2.5-4.9) mg/dl Magnesium (1.8-2.4) mg/dl Total Bilirubin 0.6 (0.2-1) mg/dl Direct Bilirubin 0.3 H (0-0.2) mg/dl AST 27 (15-37) U/L ALT 40 (12-78) U/L Alkaline Phosphatase 86 (45-117) U/L Total Creatine Kinase (26-192) U/L Troponin I (0-0.045) ng/ml Total Protein 5.6 L (6.4-8.2) gm/dl Albumin 2.1 L (3.4-5.0) gm/dl Procalcitonin (0-0.5) ng/ml TSH (0.300-4.500) uIu/ml Nasal Screen MRSA (PCR) (Negative) 06/16/19 06/15/19 06/15/19 Range/Units 00:14 23:41 20:05 WBC (4.8-10.8) K/uL RBC (4.2-5.4) M/uL Hgb (12.0-16.0) g/dL Hct (37-47) % MCV (80-100) fL MCH (25-34) pg MCHC (32-36) g/dL RDW Std Deviation (36.4-46.3) fL RDW Coeff of Junie (11.5-14.5) % Plt Count (130-400) K/uL MPV (7.4-10.4) fL Immature Gran % (Auto) % Neut % (Auto) % Lymph % (Auto) % [place] % (Auto) % Eos % (Auto) % Baso % (Auto) % Immature Gran # (Auto) (0.00-0.02) K/uL Neut # (Auto) (1.4-6.5) K/uL Lymph # (Auto) (1.2-3.4) K/uL [place] # (Auto) (0.11-0.59) K/uL Eos # (Auto) (0-0.5) K/uL Baso # (Auto) (0-0.2) K/uL Toxic Vacuolation Echinocytes PT (9.0-12.0) Seconds INR (0.9-1.1) ABG pH (7.35-7.45) ABG pCO2 (35-46) mmHg ABG pO2 (80-95) mm/Hg ABG HCO3 (19-24) mmol/L ABG O2 Saturation (90-95) % ABG Base Excess (-9-1.8) mEq/L Jacob Test (Pos) Barometric Pressure mm/Hg Oxygen Given Sodium (136-145) mmol/L Potassium (3.5-5.1) mmol/L Chloride (98-107) mmol/L Carbon Dioxide (21-32) mmol/L Anion Gap (3-11) BUN (7-18) mg/dl Creatinine (0.6-1.2) mg/dl Est Cr Clr Drug Dosing ml/min Est GFR ( Amer) Est GFR (Non-Af Amer) BUN/Creatinine Ratio (10-20) Glucose (70-99) mg/dl POC Glucose 279 H 191 H (70-99) Estimat Average Glucose mg/dl Hemoglobin A1c (4.5-5.6) % Lactate (0.4-2.0) mmol/L Calcium (8.5-10.1) mg/dl Phosphorus (2.5-4.9) mg/dl Magnesium (1.8-2.4) mg/dl Total Bilirubin (0.2-1) mg/dl Direct Bilirubin (0-0.2) mg/dl AST (15-37) U/L ALT (12-78) U/L Alkaline Phosphatase (45-117) U/L Total Creatine Kinase (26-192) U/L Troponin I 0.097 H* (0-0.045) ng/ml Total Protein (6.4-8.2) gm/dl Albumin (3.4-5.0) gm/dl Procalcitonin (0-0.5) ng/ml TSH (0.300-4.500) uIu/ml Nasal Screen MRSA (PCR) (Negative) 06/15/19 06/15/19 06/15/19 Range/Units 18:21 18:21 18:21 WBC (4.8-10.8) K/uL RBC (4.2-5.4) M/uL Hgb (12.0-16.0) g/dL Hct (37-47) % MCV (80-100) fL MCH (25-34) pg MCHC (32-36) g/dL RDW Std Deviation (36.4-46.3) fL RDW Coeff of Junie (11.5-14.5) % Plt Count (130-400) K/uL MPV (7.4-10.4) fL Immature Gran % (Auto) % Neut % (Auto) % Lymph % (Auto) % [place] % (Auto) % Eos % (Auto) % Baso % (Auto) % Immature Gran # (Auto) (0.00-0.02) K/uL Neut # (Auto) (1.4-6.5) K/uL Lymph # (Auto) (1.2-3.4) K/uL [place] # (Auto) (0.11-0.59) K/uL Eos # (Auto) (0-0.5) K/uL Baso # (Auto) (0-0.2) K/uL Toxic Vacuolation Echinocytes PT (9.0-12.0) Seconds INR (0.9-1.1) ABG pH 7.41 (7.35-7.45) ABG pCO2 32 L (35-46) mmHg ABG pO2 89 (80-95) mm/Hg ABG HCO3 20 (19-24) mmol/L ABG O2 Saturation 97.0 H (90-95) % ABG Base Excess -3.8 (-9-1.8) mEq/L Jacob Test POS (Pos) Barometric Pressure 725.9 mm/Hg Oxygen Given 5 L Sodium (136-145) mmol/L Potassium (3.5-5.1) mmol/L Chloride (98-107) mmol/L Carbon Dioxide (21-32) mmol/L Anion Gap (3-11) BUN (7-18) mg/dl Creatinine (0.6-1.2) mg/dl Est Cr Clr Drug Dosing ml/min Est GFR ( Amer) Est GFR (Non-Af Amer) BUN/Creatinine Ratio (10-20) Glucose (70-99) mg/dl POC Glucose (70-99) Estimat Average Glucose 128 mg/dl Hemoglobin A1c 6.1 H (4.5-5.6) % Lactate (0.4-2.0) mmol/L Calcium (8.5-10.1) mg/dl Phosphorus 1.6 L (2.5-4.9) mg/dl Magnesium 1.7 L (1.8-2.4) mg/dl Total Bilirubin (0.2-1) mg/dl Direct Bilirubin (0-0.2) mg/dl AST (15-37) U/L ALT (12-78) U/L Alkaline Phosphatase (45-117) U/L Total Creatine Kinase (26-192) U/L Troponin I 0.097 H* (0-0.045) ng/ml Total Protein (6.4-8.2) gm/dl Albumin (3.4-5.0) gm/dl Procalcitonin (0-0.5) ng/ml TSH (0.300-4.500) uIu/ml Nasal Screen MRSA (PCR) (Negative) 06/15/19 06/15/19 06/15/19 Range/Units 18:21 18:21 18:21 WBC (4.8-10.8) K/uL RBC (4.2-5.4) M/uL Hgb (12.0-16.0) g/dL Hct (37-47) % MCV (80-100) fL MCH (25-34) pg MCHC (32-36) g/dL RDW Std Deviation (36.4-46.3) fL RDW Coeff of Junie (11.5-14.5) % Plt Count (130-400) K/uL MPV (7.4-10.4) fL Immature Gran % (Auto) % Neut % (Auto) % Lymph % (Auto) % [place] % (Auto) % Eos % (Auto) % Baso % (Auto) % Immature Gran # (Auto) (0.00-0.02) K/uL Neut # (Auto) (1.4-6.5) K/uL Lymph # (Auto) (1.2-3.4) K/uL [place] # (Auto) (0.11-0.59) K/uL Eos # (Auto) (0-0.5) K/uL Baso # (Auto) (0-0.2) K/uL Toxic Vacuolation Echinocytes PT 12.7 H (9.0-12.0) Seconds INR 1.3 H (0.9-1.1) ABG pH (7.35-7.45) ABG pCO2 (35-46) mmHg ABG pO2 (80-95) mm/Hg ABG HCO3 (19-24) mmol/L ABG O2 Saturation (90-95) % ABG Base Excess (-9-1.8) mEq/L Jacob Test (Pos) Barometric Pressure mm/Hg Oxygen Given Sodium 143 (136-145) mmol/L Potassium 3.3 L (3.5-5.1) mmol/L Chloride 115 H (98-107) mmol/L Carbon Dioxide 18 L (21-32) mmol/L Anion Gap 10.0 (3-11) BUN 52 H (7-18) mg/dl Creatinine 1.11 D (0.6-1.2) mg/dl Est Cr Clr Drug Dosing 41.4 ml/min Est GFR ( Amer) 53.2 Est GFR (Non-Af Amer) 45.9 BUN/Creatinine Ratio 47.0 H (10-20) Glucose 196 H (70-99) mg/dl POC Glucose (70-99) Estimat Average Glucose mg/dl Hemoglobin A1c (4.5-5.6) % Lactate 3.3 H* (0.4-2.0) mmol/L Calcium 8.6 D (8.5-10.1) mg/dl Phosphorus (2.5-4.9) mg/dl Magnesium 1.6 L (1.8-2.4) mg/dl Total Bilirubin 1.0 (0.2-1) mg/dl Direct Bilirubin 0.4 H (0-0.2) mg/dl AST 31 (15-37) U/L ALT 39 (12-78) U/L Alkaline Phosphatase 140 H (45-117) U/L Total Creatine Kinase 204 H (26-192) U/L Troponin I (0-0.045) ng/ml Total Protein 5.6 L D (6.4-8.2) gm/dl Albumin 2.2 L (3.4-5.0) gm/dl Procalcitonin (0-0.5) ng/ml TSH 2.320 (0.300-4.500) uIu/ml Nasal Screen MRSA (PCR) (Negative) 06/15/19 06/15/19 06/15/19 Range/Units 18:21 17:45 17:28 WBC 27.42 H (4.8-10.8) K/uL RBC 4.21 (4.2-5.4) M/uL Hgb 13.6 (12.0-16.0) g/dL Hct 38.6 (37-47) % MCV 91.7 (80-100) fL MCH 32.3 (25-34) pg MCHC 35.2 (32-36) g/dL RDW Std Deviation 45.8 (36.4-46.3) fL RDW Coeff of Junie 13.7 (11.5-14.5) % Plt Count 148 (130-400) K/uL MPV 10.3 (7.4-10.4) fL Immature Gran % (Auto) 2.7 % Neut % (Auto) 92.9 % Lymph % (Auto) 2.0 % [place] % (Auto) 2.4 % Eos % (Auto) 0.0 % Baso % (Auto) 0.0 % Immature Gran # (Auto) 0.73 H (0.00-0.02) K/uL Neut # (Auto) 25.47 H (1.4-6.5) K/uL Lymph # (Auto) 0.56 L (1.2-3.4) K/uL [place] # (Auto) 0.65 H (0.11-0.59) K/uL Eos # (Auto) 0.00 (0-0.5) K/uL Baso # (Auto) 0.01 (0-0.2) K/uL Toxic Vacuolation Echinocytes 1+ PT (9.0-12.0) Seconds INR (0.9-1.1) ABG pH (7.35-7.45) ABG pCO2 (35-46) mmHg ABG pO2 (80-95) mm/Hg ABG HCO3 (19-24) mmol/L ABG O2 Saturation (90-95) % ABG Base Excess (-9-1.8) mEq/L Jacob Test (Pos) Barometric Pressure mm/Hg Oxygen Given Sodium (136-145) mmol/L Potassium (3.5-5.1) mmol/L Chloride (98-107) mmol/L Carbon Dioxide (21-32) mmol/L Anion Gap (3-11) BUN (7-18) mg/dl Creatinine (0.6-1.2) mg/dl Est Cr Clr Drug Dosing ml/min Est GFR ( Amer) Est GFR (Non-Af Amer) BUN/Creatinine Ratio (10-20) Glucose (70-99) mg/dl POC Glucose 221 H (70-99) Estimat Average Glucose mg/dl Hemoglobin A1c (4.5-5.6) % Lactate (0.4-2.0) mmol/L Calcium (8.5-10.1) mg/dl Phosphorus (2.5-4.9) mg/dl Magnesium (1.8-2.4) mg/dl Total Bilirubin (0.2-1) mg/dl Direct Bilirubin (0-0.2) mg/dl AST (15-37) U/L ALT (12-78) U/L Alkaline Phosphatase (45-117) U/L Total Creatine Kinase (26-192) U/L Troponin I (0-0.045) ng/ml Total Protein (6.4-8.2) gm/dl Albumin (3.4-5.0) gm/dl Procalcitonin (0-0.5) ng/ml TSH (0.300-4.500) uIu/ml Nasal Screen MRSA (PCR) Negative (Negative) 06/15/19 06/15/19 06/15/19 Range/Units 16:20 15:50 13:42 WBC (4.8-10.8) K/uL RBC (4.2-5.4) M/uL Hgb (12.0-16.0) g/dL Hct (37-47) % MCV (80-100) fL MCH (25-34) pg MCHC (32-36) g/dL RDW Std Deviation (36.4-46.3) fL RDW Coeff of Junie (11.5-14.5) % Plt Count (130-400) K/uL MPV (7.4-10.4) fL Immature Gran % (Auto) % Neut % (Auto) % Lymph % (Auto) % [place] % (Auto) % Eos % (Auto) % Baso % (Auto) % Immature Gran # (Auto) (0.00-0.02) K/uL Neut # (Auto) (1.4-6.5) K/uL Lymph # (Auto) (1.2-3.4) K/uL [place] # (Auto) (0.11-0.59) K/uL Eos # (Auto) (0-0.5) K/uL Baso # (Auto) (0-0.2) K/uL Toxic Vacuolation Echinocytes PT (9.0-12.0) Seconds INR (0.9-1.1) ABG pH (7.35-7.45) ABG pCO2 (35-46) mmHg ABG pO2 (80-95) mm/Hg ABG HCO3 (19-24) mmol/L ABG O2 Saturation (90-95) % ABG Base Excess (-9-1.8) mEq/L Jacob Test (Pos) Barometric Pressure mm/Hg Oxygen Given Sodium (136-145) mmol/L Potassium (3.5-5.1) mmol/L Chloride (98-107) mmol/L Carbon Dioxide (21-32) mmol/L Anion Gap (3-11) BUN (7-18) mg/dl Creatinine (0.6-1.2) mg/dl Est Cr Clr Drug Dosing ml/min Est GFR ( Amer) Est GFR (Non-Af Amer) BUN/Creatinine Ratio (10-20) Glucose (70-99) mg/dl POC Glucose 232 H 223 H (70-99) Estimat Average Glucose mg/dl Hemoglobin A1c (4.5-5.6) % Lactate 4.3 H* (0.4-2.0) mmol/L Calcium (8.5-10.1) mg/dl Phosphorus (2.5-4.9) mg/dl Magnesium (1.8-2.4) mg/dl Total Bilirubin (0.2-1) mg/dl Direct Bilirubin (0-0.2) mg/dl AST (15-37) U/L ALT (12-78) U/L Alkaline Phosphatase (45-117) U/L Total Creatine Kinase (26-192) U/L Troponin I (0-0.045) ng/ml Total Protein (6.4-8.2) gm/dl Albumin (3.4-5.0) gm/dl Procalcitonin (0-0.5) ng/ml TSH (0.300-4.500) uIu/ml Nasal Screen MRSA (PCR) (Negative) Medications Administered Current Inpatient Medications Dextrose (Dextrose 50%) 25 - 50 ml IV UD PRN; Protocol PRN Reason: Hypoglycemia Protocol Stop: 07/15/19 21:44 Enoxaparin Sodium (Lovenox) 40 mg SQ Q24H [facility] Stop: 07/16/19 11:59 Last Admin: 06/16/19 11:33 Dose: 40 mg Documented by: Glucagon (Glucagen) 1 mg SQ UD PRN; Protocol PRN Reason: Hypoglycemia Protocol Stop: 07/15/19 21:44 Glucose (Glucose 40%) 15 - 30 gm PO UD PRN; Protocol PRN Reason: Hypoglycemia Protocol Stop: 07/15/19 21:44 Glucose (Dex4 Glucose) 4 - 8 tabs PO UD PRN; Protocol PRN Reason: Hypoglycemia Protocol Stop: 07/15/19 21:44 Piperacillin Sod/Tazobactam (Sod 3.375 gm/ Dextrose) 115 mls @ 28.75 mls/hr IV Q8H [facility]; Protocol Stop: 06/29/19 19:59 Last Admin: 06/16/19 11:33 Dose: 28.8 mls/hr Documented by: Insulin Aspart (Novolog Flexpen) 0 units SC ACHS [facility] Stop: 07/16/19 11:29 Last Admin: 06/16/19 11:34 Dose: 4 units Documented by: Insulin Aspart (Novolog Flexpen) 0 units SC TODAY@0200 [facility] Stop: 07/17/19 01:59 Insulin Glargine (Lantus Solostar Pen) 0 units SC BID [facility]; Protocol Stop: 07/16/19 20:59 Iothalamate Meglumine (Cysto-Conray Ii) 10 ml INSTIL ONCE [facility] Stop: 07/15/19 15:14 Last Admin: 06/15/19 15:56 Dose: 10 ml Documented by: Miscellaneous (Carbohydrates For Hypoglycemia) 15 - 30 gm PO UD PRN PRN Reason: Hypoglycemia Treatment Stop: 07/15/19 21:44 Miscellaneous Information (Consult) 1 ea N/A UD PRN PRN Reason: Consult Stop: 07/15/19 10:53 Miscellaneous Information (Consult Glycemic Management Pharmacy) 1 ea N/A UD PRN PRN Reason: Consult Stop: 07/15/19 18:30 Multivitamins/Minerals (Caltrate Plus) 1 tab PO QAM [facility] Stop: 07/16/19 08:59 Last Admin: 06/16/19 07:53 Dose: Not Given Documented by: Simvastatin (Zocor) 20 mg PO HS [facility] Stop: 07/15/19 20:59 Last Admin: 06/15/19 20:33 Dose: Not Given Documented by: Resident Activity Tracking Resident Involvement: Resident Care Provided Care Provided: Adult Hospital Medicine
--- NOTE | 2019-06-16 10:31 | Billing Data ---
Coding Level of Care Code 74457 Subseq Hosp Care Lvl 3
--- NOTE | 2019-06-16 10:57 | Hospitalist Progress Note ---
Date of Service June 16, 2019 Assessment & Plan (1) Severe sepsis with acute organ dysfunction: Source - pyelonephritis with obstructing calculus. Currently appears hemodynamically stable and suitable for transfer out of ICU as discussed with Dr. John. If doing well tomorrow we will remove Gloria catheter in a.m. (2) Hydronephrosis with obstructing calculus: Moderate left hydronephrosis with an obstructing 6 mm proximal left ureteral calculus. Status post cystoscopy, left ureteral stent placement Will discontinue calcium supplementation at this time. Appreciate urology management (3) Acute kidney injury: Multifactorial but mainly obstructive uropathy. Creatinine not yet back to baseline therefore we will continue slow IV fluids overnight. Continue to hold Celebrex. (4) Complicated UTI (urinary tract infection): Previously growing pansensitive E. coli in February. Complicated due to obstructing stone, now S/p ureteral stent placed 06/15 Continue Zosyn pending culture sensitivities. Discontinued vancomycin. (5) Metabolic encephalopathy: Secondary to infection as above. Appears resolving but not yet back to baseline. (6) Fall: Unwitnessed. Unclear history but found on floor. CPK unremarkable. Suspect occurred due to above. CT head unremarkable. No acute pathology on left shoulder XR. Will mobilize with PT tomorrow and if unable to weight bear may need additional imaging of hip/knees etc... (7) Atrial fibrillation with RVR: New onset in setting of sepsis Back in normal sinus rhythm after diltiazem drip and treatment of sepsis. TTE unremarkable. Patient to continue on telemetry. Will hold off starting full anticoagulation at this time as possible will not reoccur outside of this and set her up with a monitor at home if no further a. fib identified during her admission. (8) DKA (diabetic ketoacidoses): DKA ruled out. No acidosis on ABG. Would be unusual for a type II diabetic. Ketosis likely due to fasting state. In addition she had elevated lactate secondary to sepsis as above. (9) Diabetes: Appreciate pharmacy glycemic control with basal bolus insulin regimen. On glimepiride only as an outpatient. HbA1c 6.1% (10) Acute respiratory failure with hypoxia: Suspect hypoxia in the setting of sepsis. Continue to wean O2 to aim O2 sats > 94% (11) Dementia: Not yet back to her baseline as per [id number] at bedside. Noted patient on Aricept at home, will restart once she is more at her baseline mentation (12) Demand ischemia: Downtrending mild elevation in troponin in the setting of sepsis. (13) DVT prophylaxis: Lovenox 40 mg SQ daily (14) Discharge planning issues: We will give her a chance to recover today. PT and OT eval's order for tomorrow. Likely will need inpatient rehab on discharge. Subjective Patient lying comfortably in bed in the ICU prior to transfer. Remembers coming in an ambulance but not much else prior to coming to hospital. Last known well on Saturday when she was seen sleeping in bed. Family were unable to contact her on Saturday and Saturday. She was found on Saturday obtunded on the floor. She is aware she is in hospital ([facility]), talks about her coming in (he is no longer alive) and believes the year is 1918. Able to have a full conversation however. She currently denies any nausea, vomiting, abdominal pain, back pain, dysuria (Gloria catheter in place), constipation or diarrhea. She currently feels cold (the room is cold). No chest pain or shortness of breath. Review of Systems Review of Systems: All systems reviewed & are unremarkable except as noted in HPI & below Physical Exam Constitutional: well developed and + ill appearing; no acute distress Eyes: + anicteric sclerae; normal pupil size ENMT: Ears: no external ear abnormality Nose: no external nose abnormality Mouth: + dry oral mucous membranes Neck: normal visual inspection and trachea midline Respiratory: normal respiratory effort, lungs clear to auscultation no cough Cardiovascular: Rate/Rhythm: regular rate and regular rhythm Vessels: no JVD Extremities: normal capillary refill and + pedal edema (Trace bilateral) Chest (Breasts): Chest: normal inspection of chest Gastrointestinal (Abdomen): Inspection/Auscultation: abdomen not distended and no abdominal edema Percussion/Palpation: + abdomen tender (Left-sided mild only on palpation) and abdomen soft; no guarding and abdomen not rigid Musculoskeletal: no cyanosis or clubbing, extremities motor strength 5/5 Head/Neck/Chest: normocephalic and head atraumatic Skin: Extensive 2-3-day-old friction grazes on left thigh and right knee Neurologic: moves all extremities, awake and + confused; no focal motor deficits and not obtunded Motor/Sensory: no tremor, no pronator drift and no sensory deficit Psychiatric: Orientation: alert, oriented to person (Able to identify [id number] in room) and oriented to place (Aware she is in hospital but has the wrong name for the hospital); + not oriented to time Eye Contact: good eye contact Affect: euthymic affect Genitourinary: no CVA tenderness Results & Data Vital Signs (Past 12 Hours) Vital Signs Temp Pulse Pulse Resp BP BP Pulse Ox 06/16/19 08:31 76 23 127/54 L 95 06/16/19 08:00 72 19 138/56 L 96 06/16/19 07:30 75 22 135/58 L 96 06/16/19 07:00 72 19 133/57 L 96 06/16/19 06:00 98.8 F 88 16 127/51 L 98 06/16/19 05:00 67 18 118/49 L 92 06/16/19 04:30 69 19 122/53 L 95 06/16/19 04:01 70 20 96 06/16/19 04:00 70 20 130/53 L 96 06/16/19 03:31 71 20 118/55 L 95 06/16/19 03:01 65 15 95 06/16/19 03:00 66 15 101/48 L 95 06/16/19 02:30 65 15 106/43 L 95 06/16/19 02:01 65 16 94 06/16/19 02:00 66 17 112/47 L 94 06/16/19 01:30 68 20 117/52 L 95 06/16/19 01:00 68 19 117/48 L 95 06/16/19 00:30 67 20 119/50 L 96 06/16/19 00:01 68 20 95 06/16/19 00:00 68 21 132/52 L 96 06/15/19 23:30 65 18 98/49 L 95 06/15/19 23:01 64 18 95 06/15/19 23:00 64 18 117/48 L 96 PG Care Time/CCT Total # of Minutes Spent Total Time Spent with Patient: Total time spent is greater than 50% in coordination of care (as documented) at patient's floor/unit and/or counseling patient: (1) DKA (diabetic ketoacidoses) Diabetes mellitus type: type 2 Diabetes mellitus complication detail: without coma Qualified Code(s): E11.10 - Type 2 diabetes mellitus with ketoacidosis without coma (2) Dementia Dementia type: unspecified type Dementia behavioral disturbance: without behavioral disturbance Qualified Code(s): F03.90 - Unspecified dementia without behavioral disturbance (3) Diabetes Diabetes mellitus type: type 2 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
--- NOTE | 2019-06-16 10:59 | Pharmacy Report ---
Pharmacy Glycemic Short Note 2 - Date of Service June 16, 2019 - Glycemic Short BSG Results (Last 24 hours): 06/15/19 06/15/19 06/15/19 13:57 15:50 16:20 Glucose POC Glucose 314 H* 223 H 232 H 06/15/19 06/15/19 06/15/19 17:28 18:21 20:05 Glucose 196 H POC Glucose 221 H 191 H 06/15/19 06/16/19 06/16/19 23:41 03:30 06:00 Glucose 172 H POC Glucose 279 H 227 H 06/16/19 07:57 Glucose POC Glucose 148 H OUTPATIENT ANTIDIABETIC REGIMEN: * Glimepiride 2mg PO daily * A1c = 6.1% 06/15/19 ASSESSMENT: * Type 2 diabetic admitted for sepsis secondary to complicated uti and gram negative joshua bacteremia * BSG's acutely elevated on admission, + ketones, however no AG. IV insulin drip initially planned however cancelled to ongoing hypokalemia. * Patient has been treated with SQ Novolog thus far and BSGs did fall to low 200's overnight * Will initiate basal/bolus regimen based upon weight and "moderate" illness severity now that BSGs trending down * Pt to begin full liquid diet today now that mental status improved PLAN FOR INPATIENT GLYCEMIC CONTROL: * Hold outpatient oral diabetes medications * Basal insulin * Lantus 14 units SQ x 1 this AM, then BID per the following scale: * 0 units if BSG less than 110 * 8 units if BSG 110-160 * 14 units if BSG greater than 160 * Bolus insulin * NovoLog per scale ACHS or Q6hrs while NPO * Goal Range: Low 110 mg/dL - High 140 mg/dL * Correction Factor: 25 mg/dL/unit * Nutritional / Prandial insulin per carb ratio of 1 unit per 10 grams CHO consumed PLAN FOR DISCHARGE: * A1c of 6.1 % acceptable if patient not experiencing frequent hypoglycemic episodes with outpt regimen, if this is the case, she may resume her home glimepiride regimen.
[2019-06-16] MEDS ORDERED: Nursing to Pharmacy Communication ONE (11:18)
[2019-06-16] MEDS: ENOXAPARIN INJ 40 MG/0.4 ML SYR SQ SCH (11:33)
[2019-06-16] MEDS: LACTATED RINGER'S 1,000 ML IV SCH (16:18)
[2019-06-16] MEDS ORDERED: MICONAZOLE NITRATE POWDER 43 GM EXT PRN (20:20)
[2019-06-16] MEDS: INSULIN GLARGINE SOLOSTAR 100 UNITS/ML 3 ML PEN SC SCH (20:28)
[2019-06-16] MEDS: SIMVASTATIN 20 MG TAB PO SCH (20:32)
[2019-06-17] MEDS: INSULIN ASPART 100 UNITS/ML 3 ML PEN SC SCH ×7 (02:20→21:04)
[2019-06-17] MEDS: PIPERACILLIN/TAZOBACTAM 3.375 GM in DEXTROSE 5% 100 ML IV SCH ×3 (03:17→20:18)
[2019-06-17] MEDS: LACTATED RINGER'S 1,000 ML IV SCH ×2 (03:21→14:57)
[2019-06-17 07:45] LABS: Basophils # (auto) 0.02 K/uL (0-0.2); Basophils % (auto) 0.1 %; Eosinophils # (auto) 0.36 K/uL (0-0.5); Eosinophils % (auto) 2.1 %; Hematocrit (blood only) 35.6 % (37-47); Hemoglobin 12.3 g/dL (12.0-16.0); Immature Granulocytes # (auto) 0.09 K/uL (0.00-0.02); Immature Granulocytes % (auto) 0.5 %; Lymphocytes # (auto) 2.33 K/uL (1.2-3.4); Lymphocytes % (auto) 13.8 %; Mean Corpuscular Hemoglobin 31.5 pg (25-34); Mean Corpuscular Hgb Conc 34.6 g/dL (32-36); Mean Corpuscular Volume 91.3 fL (80-100); Mean Platelet Volume 10.3 fL (7.4-10.4); Monocytes # (auto) 0.92 K/uL (0.11-0.59); Monocytes % (auto) 5.5 %; Neutrophils # (auto) 13.12 K/uL (1.4-6.5); Platelet Count 140 K/uL (130-400); RDW Standard Deviation 46.2 fL (36.4-46.3); White Blood Count 16.84 K/uL (4.8-10.8)
[2019-06-17] MEDS: INSULIN GLARGINE SOLOSTAR 100 UNITS/ML 3 ML PEN SC SCH ×2 (08:13→21:03)
[2019-06-17 08:26] LABS: BUN Creatinine Ratio 47.7 (10-20); Calcium 9.5 mg/dl (8.5-10.1); Est GFR (African American) 82.8; Est GFR (Non-African American) 71.4; Magnesium 2.1 mg/dl (1.8-2.4); Potassium 3.3 mmol/L (3.5-5.1)
--- NOTE | 2019-06-17 10:51 | Communication Note ---
Date of Service: June 17, 2019 Pt was evaluated and treated promptly from ER by our service given acuity of illness. Formal consult for our service was not placed, therefore pt was not added to our service list for rounding. I will see patient tomorrow and develop followup plan from our standpoint.
[2019-06-17] MEDS: ENOXAPARIN INJ 40 MG/0.4 ML SYR SQ SCH (11:31)
--- NOTE | 2019-06-17 13:12 | XRay Report ---
XR knee RT 1 or 2V routine CLINICAL HISTORY: Right knee pain and swelling. COMPARISON: 10/03/2018 DISCUSSION: There is a longstem total right knee arthroplasty. No acute fractures are visualized. The re is a fractured proximal cerclage wire unchanged from the prior study. There is a small joint effus ion. There is chronic fragmentation of the anterior tibial tuberosity. IMPRESSION: 1. Long stem total right knee arthroplasty. No evidence of dislocation 2. No acute fractures 3. Small suprapatellar joint effusion Electronically signed by: Brad Nogueira M.D. 06/17/2019 1:10 PM
--- NOTE | 2019-06-17 13:14 | XRay Report ---
XR hip RT 2V w pelvis CLINICAL HISTORY: Right hip pain following fall. COMPARISON: Pelvis radiograph July 07, 2015. CT of the abdomen and pelvis June 25, 2019. FINDINGS: Left ureteral stent is partially imaged. Phleboliths are noted within the right lower quad rant and the pelvis. Sacroiliac joints and symphysis pubis are intact. No acute fracture within the p jean marie or hips is identified. Hip joint spaces are preserved. There is mild osteophytosis of the bilat eral hips. There is no evidence for avascular necrosis. IMPRESSION: No acute fracture within the pelvis or hips. Electronically signed by: Enrrique Johns M.D. 06/17/2019 1:13 PM
--- NOTE | 2019-06-17 13:41 | Pharmacy Report ---
Pharmacy Glycemic Short Note 2 - Date of Service June 17, 2019 - Glycemic Short BSG Results (Last 24 hours): 06/16/19 06/16/19 06/17/19 16:35 20:02 01:57 Glucose POC Glucose 147 H 162 H 213 H 06/17/19 06/17/19 06/17/19 07:25 07:52 11:44 Glucose 131 H POC Glucose 134 H 95 OUTPATIENT ANTIDIABETIC REGIMEN: * Glimepiride 2mg PO daily * A1c = 6.1% 06/15/19 ASSESSMENT: 06/17 * * Patient is currently received 43 units of insulin yesterday * 28 units of basal insulin * 15 units of prandial/correctional insulin * BSGs ranging 147-227 over the past 24hrs * Risk factors for insulin resistance are constant over the past 24hrs * Infection is being adequately treated, may consider de-escalation, blood cultures growing E. coli (3/4) + gamma hemolytic strep species (1/), cultures from 06/16 with GNB (likely E. coli) * Planning for adjusment * AM Fasting BSG = 134, this is within goal range, trending down, will continue with current lantus scale, will hopefully have set dose tomorrow with better idea of patient need * Insulin yesterday weighted toward lantus dosing yesterday, redistributing * Post-prandial BSGs have been close to goal or within goal range, will continue current CF/CR- BSG at lunch appropriate but if continue to trend down will want to loosen 06/16 * Type 2 diabetic admitted for sepsis secondary to complicated uti and gram negative joshua bacteremia * BSG's acutely elevated on admission, + ketones, however no AG. IV insulin drip initially planned however cancelled to ongoing hypokalemia. * Patient has been treated with SQ Novolog thus far and BSGs did fall to low 200's overnight * Will initiate basal/bolus regimen based upon weight and "moderate" illness severity now that BSGs trending down * Pt to begin full liquid diet today now that mental status improved PLAN FOR INPATIENT GLYCEMIC CONTROL: * Hold outpatient oral diabetes medications * Basal insulin * Lantus BID per the following scale: * 0 units if BSG less than 110 * 8 units if BSG 110-160 * 14 units if BSG greater than 160 * Bolus insulin * NovoLog per scale ACHS or Q6hrs while NPO * Goal Range: Low 110 mg/dL - High 140 mg/dL * Correction Factor: 25 mg/dL/unit * Nutritional / Prandial insulin per carb ratio of 1 unit per 10 grams CHO consumed PLAN FOR DISCHARGE: * A1c of 6.1 % acceptable if patient not experiencing frequent hypoglycemic episodes with outpt regimen, if this is the case, she may resume her home glimepiride regimen.
[2019-06-17] MEDS ORDERED: VANCOMYCIN TROUGH ONE (15:30)
--- NOTE | 2019-06-17 18:44 | Hospitalist Progress Note ---
Date of Service June 17, 2019 Assessment & Plan (1) Knee pain: Now having knee pain with very limited exam for hip rotation or knee flexion due to pain. Left knee has overlying graze with some yellow crusting, mild effusion. Concerning for fracture as unknown if fell. XR hip and knee ord ered - negative for fracture. Ok for PT to ambulate but may need advanced imaging if still remains unable to weight bear on this side. (2) Severe sepsis with acute organ dysfunction: Source - pyelonephritis with obstructing calculus. Gloria cath left in due to right leg pain and lack of mobility. Will consider removal tomorrow. (3) Hydronephrosis with obstructing calculus: Moderate left hydronephrosis with an obstructing 6 mm proximal left ureteral calculus. Status post cystoscopy, left ureteral stent placement D/c calcium supplementation at this time. Appreciate urology management (4) Acute kidney injury: Multifactorial but mainly obstructive uropathy. Cr now back to baseline. Stop IV fluids. Continue to hold Celebrex. (5) Complicated UTI (urinary tract infection): E. coli in blood and urine cultures. Pending gram positive cocci and gram negative bacilli. Complicated due to obstructing stone, now S/p ureteral stent placed 06/15 Continue Zosyn pending full cultures reported to r/o pseudomonas. (6) Metabolic encephalopathy: Secondary to infection as above. Appears resolving but not yet back to baseline. (7) Fall: Unwitnessed. Unclear history but found on floor. CPK unremarkable. Suspect occurred due to above. CT head unremarkable. No acute pathology on left shoulder XR. No fracture on XR of right hip/knee. Grazes with slight erythema surrounding them. Quite extensive (suspected friction burn) over right knee and left thigh. (8) Atrial fibrillation with RVR: New onset in setting of sepsis Back in normal sinus rhythm after diltiazem drip and treatment of sepsis. TTE unremarkable. Patient to continue on telemetry, no further reoccurrence. No full anticoagulation at this time as possible will not reoccur outside of this and set her up with a monitor at home if no further a. fib identified during her admission. (9) Diabetes: Appreciate pharmacy glycemic control with basal bolus insulin regimen. On glimepiride only as an outpatient. HbA1c 6.1% (10) Acute respiratory failure with hypoxia: Now resolved. (11) Dementia: Not yet back to her baseline as per [id number] at bedside. Possibly restart aricept tomorrow if doing well (12) Demand ischemia: Downtrending mild elevation in troponin in the setting of sepsis. (13) Hypertension: On no outpatient medications for this. PRN hydralazine if sBP persistently >180. Otherwise will hold off starting any chronic medications at present. (14) DVT prophylaxis: Lovenox 40 mg SQ daily (15) Discharge planning issues: PT/OT evals. Will need inpatient rehab on discharge Subjective Patient lying in bed. Complaining of pain in right leg, mostly her knee on any small movements. Left knee that had pain yesterday no longer appears to hurt. She appears confused at times thinking she came to the hospital for her grandaughters baby and then not realizing she is in hospital, but at other times she understands she was sick from a UTI. She reports concern that she is not improving but at the same time does not remember much about coming in, when asked specifically what is not improving her main complaint is her general strength. Review of Systems Review of Systems: All systems reviewed & are unremarkable except as noted in HPI & below Physical Exam Constitutional: well developed and + ill appearing; no acute distress Eyes: + anicteric sclerae; normal pupil size ENMT: Ears: no external ear abnormality Nose: no external nose abnormality Mouth: + dry oral mucous membranes Neck: normal visual inspection and trachea midline Respiratory: normal respiratory effort, lungs clear to auscultation no cough Cardiovascular: Rate/Rhythm: regular rate and regular rhythm Heart Sounds: no murmur Vessels: no JVD Extremities: normal capillary refill and + pedal edema (Trace bilateral) Chest (Breasts): Chest: normal inspection of chest Gastrointestinal (Abdomen): Inspection/Auscultation: abdomen not distended and no abdominal edema Percussion/Palpation: + abdomen tender (Left-sided mild only on palpation) and abdomen soft; no guarding and abdomen not rigid Musculoskeletal: Head/Neck/Chest: normocephalic and head atraumatic Mild effusion right knee. painful on palpation around joint line. Unable to internally or externally rotate hip without significant pain. Hold leg shortened and externally rotated. Neurologic: moves all extremities, awake and + confused; no focal motor deficits and not obtunded Motor/Sensory: no tremor, no pronator drift and no sensory deficit Psychiatric: Orientation: alert Eye Contact: good eye contact Affect: euthymic affect Genitourinary: no CVA tenderness Results & Data Vital Signs (Past 12 Hours) Vital Signs Temp Pulse Pulse Resp BP BP Pulse Ox 06/17/19 15:46 98.4 F 74 18 153/83 H 93 06/17/19 15:44 74 06/17/19 11:34 98.4 F 70 16 173/82 H 93 06/17/19 07:21 99.3 F 59 L 16 153/66 H 95 PG Care Time/CCT Total # of Minutes Spent Total Time Spent with Patient: Total time spent is greater than 50% in coordination of care (as documented) at patient's floor/unit and/or counseling patient: (1) Fall Encounter type: initial encounter Qualified Code(s): W19.XXXA - Unspecified fall, initial encounter (2) Diabetes Diabetes mellitus type: type 2 Diabetes mellitus emt intermediate insulin use: without correction use Diabetes mellitus complication status: with hyperglycemia Qualified Code(s): E11.65 - Type 2 diabetes mellitus with hyperglycemia (3) Dementia Dementia type: unspecified type Dementia behavioral disturbance: without behavioral disturbance Qualified Code(s): F03.90 - Unspecified dementia without behavioral disturbance (4) Knee pain Chronicity: acute Laterality: right Qualified Code(s): M25.561 - Pain in right knee (5) Hypertension Hypertension type: unspecified Qualified Code(s): I10 - Essential (primary) hypertension
[2019-06-17] MEDS: SIMVASTATIN 20 MG TAB PO SCH (20:18)
[2019-06-17] MEDS ORDERED: HydrALAZINE HCL 20 MG/ML VIAL IV PRN (23:23)
[2019-06-17] MEDS: cefTRIAXone SODIUM 2,000 MG in DEXTROSE 5% 50 ML IV SCH (23:43)
[2019-06-18] MEDS: INSULIN ASPART 100 UNITS/ML 3 ML PEN SC SCH ×5 (02:15→21:26)
[2019-06-18 07:43] LABS: Basophils # (auto) 0.03 K/uL (0-0.2); Basophils % (auto) 0.3 %; Eosinophils % (auto) 2.8 %; Hematocrit (blood only) 37.3 % (37-47); Hemoglobin 12.7 g/dL (12.0-16.0); Immature Granulocytes # (auto) 0.06 K/uL (0.00-0.02); Immature Granulocytes % (auto) 0.6 %; Lymphocytes # (auto) 2.43 K/uL (1.2-3.4); Lymphocytes % (auto) 22.6 %; Mean Corpuscular Hemoglobin 30.9 pg (25-34); Mean Corpuscular Volume 90.8 fL (80-100); Mean Platelet Volume 10.1 fL (7.4-10.4); Monocytes # (auto) 0.85 K/uL (0.11-0.59); Monocytes % (auto) 7.9 %; Neutrophils # (auto) 7.08 K/uL (1.4-6.5); Neutrophils % (auto) 65.8 %; Platelet Count 156 K/uL (130-400); RDW Coefficient of Variation 13.3 % (11.5-14.5); Red Blood Count 4.11 M/uL (4.2-5.4); White Blood Count 10.75 K/uL (4.8-10.8)
[2019-06-18] MEDS: VITAMIN B COMPLEX TAB PO SCH (07:46)
[2019-06-18] MEDS: LACTOBACILLUS ACIDOPHILUS (FLORANEX) TAB PO SCH ×4 (07:46→21:28)
[2019-06-18] MEDS: INSULIN GLARGINE SOLOSTAR 100 UNITS/ML 3 ML PEN SC SCH ×2 (08:05→21:25)
[2019-06-18 08:40] LABS: BUN Creatinine Ratio 32.5 (10-20); Calcium 9.4 mg/dl (8.5-10.1); Creatinine Clr Calc Pharmacy 76.6 ml/min; Est GFR (African American) 96.6; Est GFR (Non-African American) 83.4; Magnesium 1.8 mg/dl (1.8-2.4); Phosphorus 2.1 mg/dl (2.5-4.9); Potassium 3.2 mmol/L (3.5-5.1)
[2019-06-18] MEDS: ENOXAPARIN INJ 40 MG/0.4 ML SYR SQ SCH (11:09)
--- NOTE | 2019-06-18 11:31 | Urology Progress Note ---
Date of Service June 18, 2019 Assessment & Plan (1) Severe sepsis with acute organ dysfunction: 84yo F with sepsis related to obstructing left ureteral stone, moderate hydro s/p emergent stent placement on 06/15 WBC resolved, VSS. BCx growing E.Coli, UC&S with high contamination. Continue IV Rocephin, will require 10-14 days of antibiotics total prior to definitive stone management. Will arrange for outpatient followup. Thank you for allowing us to participate in the acute care of Mrs. Castañeda. Please reconsult us with additional questions, concerns or changes in patient status. Subjective Pt sitting up in chair this AM. She states she feels better, but still very fatigued. Low appetite. Tolerating stent well, denies any significant pain or dysuria. Remains slightly disoriented about details, poor historian. She did not know she had a hodge catheter. Hodge draining adequate amounts of urine Review of Systems Review of Systems: All systems reviewed & are unremarkable except as noted in HPI & below Physical Exam Constitutional: no acute distress and not ill appearing Eyes: no nystagmus ENMT: Ears: no hearing impairment Neck: trachea midline Respiratory: no respiratory distress and no cough Cardiovascular: Vessels: no JVD Chest (Breasts): Chest: normal inspection of chest Gastrointestinal (Abdomen): Inspection/Auscultation: abdomen not distended and no abdominal edema Percussion/Palpation: abdomen soft; abdomen nontender Musculoskeletal: Head/Neck/Chest: normocephalic and head atraumatic Skin: no rashes, warm and dry Neurologic: awake; not confused and not obtunded Psychiatric: Orientation: alert and oriented x 3 Eye Contact: good eye contact Affect: no depressed affect Lymphatic: no lymphadenopathy and no lymphedema Results & Data Vital Signs (Past 12 Hours) Vital Signs Temp Pulse Pulse Pulse Resp BP BP 06/18/19 11:23 36.5 C 67 20 160/88 H 06/18/19 08:21 77 167/84 H 06/18/19 07:56 36.9 C 77 20 180/79 H 06/18/19 04:10 36.6 C 76 20 163/74 H 06/18/19 01:14 75 Pulse Ox 06/18/19 11:23 95 06/18/19 08:21 06/18/19 07:56 90 06/18/19 04:10 93 06/18/19 01:14 PG Care Time/CCT Total # of Minutes Spent Total Time Spent with Patient: Total time spent is greater than 50% in coordination of care (as documented) at patient's floor/unit and/or counseling patient:
--- NOTE | 2019-06-18 14:28 | Pharmacy Report ---
Pharmacy Glycemic Short Note 2 - Date of Service June 18, 2019 - Glycemic Short BSG Results (Last 24 hours): 06/17/19 06/17/19 06/18/19 16:34 20:55 02:07 Glucose POC Glucose 99 95 114 H 06/18/19 06/18/19 06/18/19 07:10 07:41 11:31 Glucose 103 H POC Glucose 119 H 112 H OUTPATIENT ANTIDIABETIC REGIMEN: * Glimepiride 2mg PO daily * A1c = 6.1% 06/15/19 ASSESSMENT: 06/18 * Patient received 24 units of insulin yesterday * 8 of basal * 16 of prandial/correction * Changes needed to regimen: * Fasting blood sugar 119- trending down and within goal range, will continue 8 units in the morning with scale for pm up to 8 units * Prandial BSGs within goal range/slightly below range, will continue current CF/CR 06/17 * * Patient is currently received 43 units of insulin yesterday * 28 units of basal insulin * 15 units of prandial/correctional insulin * BSGs ranging 147-227 over the past 24hrs * Risk factors for insulin resistance are constant over the past 24hrs * Infection is being adequately treated, may consider de-escalation, blood cultures growing E. coli (3/4) + gamma hemolytic strep species (1/4), cultures from 06/16 with GNB (likely E. coli) * Planning for adjusment * AM Fasting BSG = 134, this is within goal range, trending down, will continue with current lantus scale, will hopefully have set dose tomorrow with better idea of patient need * Insulin yesterday weighted toward lantus dosing yesterday, redistributing * Post-prandial BSGs have been close to goal or within goal range, will continue current CF/CR- BSG at lunch appropriate but if continue to trend down will want to loosen 06/16 * Type 2 diabetic admitted for sepsis secondary to complicated uti and gram negative joshua bacteremia * BSG's acutely elevated on admission, + ketones, however no AG. IV insulin drip initially planned however cancelled to ongoing hypokalemia. * Patient has been treated with SQ Novolog thus far and BSGs did fall to low 200's overnight * Will initiate basal/bolus regimen based upon weight and "moderate" illness severity now that BSGs trending down * Pt to begin full liquid diet today now that mental status improved PLAN FOR INPATIENT GLYCEMIC CONTROL: * Hold outpatient oral diabetes medications * Basal insulin * Lantus BID per the following scale: * 0 units if BSG less than 110 * 8 units if BSG 110-160 * 14 units if BSG greater than 160 * Bolus insulin * NovoLog per scale ACHS or Q6hrs while NPO * Goal Range: Low 110 mg/dL - High 140 mg/dL * Correction Factor: 25 mg/dL/unit * Nutritional / Prandial insulin per carb ratio of 1 unit per 10 grams CHO consumed PLAN FOR DISCHARGE: * A1c of 6.1 % acceptable if patient not experiencing frequent hypoglycemic episodes with outpt regimen, if this is the case, she may resume her home glimepiride regimen.
[2019-06-18] MEDS ORDERED: POTASSIUM CHLORIDE 20 MEQ TABCR PO ONE (15:45)
--- NOTE | 2019-06-18 21:24 | Hospitalist Progress Note ---
Date of Service June 18, 2019 Assessment & Plan (1) Knee pain: XR negative for fracture. Improving. Reportedly weight bearing without pain. Able to stand for 30 seconds then side step to right and sit down. Generalized b/l lower extremity weakness. (2) Severe sepsis with acute organ dysfunction: Source - pyelonephritis with obstructing calculus. Remove hodge cath. (3) Hydronephrosis with obstructing calculus: Moderate left hydronephrosis with an obstructing 6 mm proximal left ureteral calculus. Status post cystoscopy, left ureteral stent placement Discontinued calcium supplementation, Vit D borderline therefore will continue supplementation Appreciate urology management (4) Acute kidney injury: Now resolved Multifactorial but mainly obstructive uropathy. Continue to hold Celebrex. (5) Complicated UTI (urinary tract infection): Pyelonephritis Will repeat blood cultures given enterococcus faecalis growing in 1/2 blood cultures and ongoing significant fatigue and confusion. Although repeat cultures day after admission appear to just be growing E. coli at this time. No vegetation on TTE on arrival and I do not feel this needs to be covered for endocarditis at this time. E. coli in blood and urine cultures. Complicated due to obstructing stone, now S/p ureteral stent placed 06/15 Continue ceftriaxone. (6) Metabolic encephalopathy: Secondary to infection as above. Appears improving daily. Will discuss with family tomorrow regarding how close to her baseline she is. She has known dementia on Aricept which will be restarted today. (7) Fall: Unwitnessed. Unclear history but found on floor. CPK unremarkable. Suspect occurred due to above infection. CT head unremarkable. No acute pathology on left shoulder XR. No fracture on XR of right hip/knee. Grazes with slight erythema surrounding them (covered for cellulitis with ceftriaxone however no specific concerns for this on exam). Quite extensive (suspected friction burn) over right knee and left thigh. Appreciate wound care recommendations yesterday. (8) Atrial fibrillation with RVR: Paroxysmal. New onset in setting of sepsis. Converted to normal sinus rhythm after diltiazem drip and treatment of sepsis on day of admission. TTE unremarkable. Patient to continue on telemetry, no further reoccurrence. No full anticoagulation as not shown to reduce risk of stroke when occurs during setting of sepsis and just increases risk of bleeding. (9) Diabetes: Appreciate pharmacy glycemic control with basal bolus insulin regimen. On glimepiride only as an outpatient. Will discuss potentially starting metformin prior to discharge - no known allergy to this. HbA1c 6.1% (10) Acute respiratory failure with hypoxia: Secondary to sepsis. Now resolved. (11) Dementia: Restart Aricept. (12) Demand ischemia: Downtrending mild elevation in troponin in the setting of sepsis. (13) Hypertension: On no outpatient medications for this. PRN hydralazine if sBP persistently >180. Otherwise will hold off starting any chronic medications at present. (14) DVT prophylaxis: Lovenox 40 mg SQ daily (15) Discharge planning issues: PT/OT evals appreciated. Will need inpatient rehab on discharge, awaiting [facility] as no beds at [facility] till Saturday. Subjective Patient lying in bed. Still with some confusion but appears more alert with more fluent conversation. Still confabulating but generally understands she has a urine tract infection but not much more than that. She reports her right leg pain is much better today. Able to weight bear. XRs showing no fracture. Limited recent memory and unable to tell me about her bowel movements or what happened yesterday. Review of Systems Review of Systems: All systems reviewed & are unremarkable except as noted in HPI & below Physical Exam Constitutional: well developed and + ill appearing; no acute distress Eyes: + anicteric sclerae; normal pupil size ENMT: external ear and nose normal, oropharynx normal Neck: normal visual inspection and trachea midline Respiratory: normal respiratory effort, lungs clear to auscultation no respiratory distress, does not use accessory muscles and no cough Cardiovascular: Rate/Rhythm: regular rate and regular rhythm Heart Sounds: no murmur Vessels: no JVD Extremities: normal capillary refill and + pedal edema (Trace bilateral) Chest (Breasts): Chest: normal inspection of chest Gastrointestinal (Abdomen): Inspection/Auscultation: abdomen not distended and no abdominal edema Percussion/Palpation: abdomen soft; abdomen nontender, no guarding and abdomen not rigid Musculoskeletal: no cyanosis or clubbing, extremities motor strength 5/5 Head/Neck/Chest: normocephalic and head atraumatic Skin: extensive friction burn on right knee and left thigh, no surrounding ce llulitis Neurologic: moves all extremities, awake and + confused; no focal motor deficits and not obtunded Speech / Cognition: normal speech Motor/Sensory: no tremor, no pronator drift and no sensory deficit Psychiatric: Orientation: alert, oriented to person and oriented to place; + not oriented to time Eye Contact: good eye contact Affect: euthymic affect Thought Process: + confabulations Hallucinations: no auditory hallucinations and no visual hallucinations Cognition: remote memory grossly intact, attention grossly intact and language grossly intact; + recent memory not intact Genitourinary: no CVA tenderness Results & Data Vital Signs (Past 12 Hours) Vital Signs Temp Pulse Resp BP BP Pulse Ox 06/18/19 20:29 37.0 C 76 19 143/65 H 94 06/18/19 15:00 36.8 C 78 20 147/62 H 94 06/18/19 11:23 36.5 C 67 20 160/88 H 95 PG Care Time/CCT Total # of Minutes Spent Total Time Spent with Patient: Total time spent is greater than 50% in coordination of care (as documented) at patient's floor/unit and/or counseling patient: (1) Knee pain Chronicity: acute Laterality: right Qualified Code(s): M25.561 - Pain in right knee (2) Fall Encounter type: initial encounter Qualified Code(s): W19.XXXA - Unspecified fall, initial encounter (3) Diabetes Diabetes mellitus type: type 2 Diabetes mellitus detention insulin use: w ithout moth exterminator use Diabetes mellitus complication status: with hyperglycemia Qualified Code(s): E11.65 - Type 2 diabetes mellitus with hyperglycemia (4) Dementia Dementia type: unspecified type Dementia behavioral disturbance: without behavioral disturbance Qualified Code(s): F03.90 - Unspecified dementia without behavioral disturbance (5) Hypertension Hypertension type: unspecified Qualified Code(s): I10 - Essential (primary) hypertension
[2019-06-18] MEDS: SIMVASTATIN 20 MG TAB PO SCH (21:28)
[2019-06-18] MEDS: DONEPEZIL HCL 10 MG TAB PO SCH (21:28)
[2019-06-19] MEDS: cefTRIAXone SODIUM 2,000 MG in DEXTROSE 5% 50 ML IV SCH (00:18)
[2019-06-19] MEDS: LACTOBACILLUS ACIDOPHILUS (FLORANEX) TAB PO SCH ×4 (07:44→20:49)
[2019-06-19] MEDS: VITAMIN B COMPLEX TAB PO SCH (07:44)
[2019-06-19 07:52] LABS: BUN Creatinine Ratio 27.2 (10-20); Calcium 9.8 mg/dl (8.5-10.1); Creatinine Clr Calc Pharmacy 83.6 ml/min; Est GFR (African American) 99.4; Est GFR (Non-African American) 85.7; Magnesium 1.7 mg/dl (1.8-2.4); Potassium 3.2 mmol/L (3.5-5.1)
[2019-06-19 07:57] LABS: Phosphorus 2.9 mg/dl (2.5-4.9)
[2019-06-19] MEDS: INSULIN ASPART 100 UNITS/ML 3 ML PEN SC SCH ×4 (08:06→21:18)
[2019-06-19] MEDS: INSULIN GLARGINE SOLOSTAR 100 UNITS/ML 3 ML PEN SC SCH ×2 (08:06→21:17)
[2019-06-19] MEDS ORDERED: POTASSIUM CHLORIDE 20 MEQ TABCR PO STA (08:20)
[2019-06-19] MEDS: lisinopriL 10 MG TAB PO SCH (08:47)
[2019-06-19] MEDS: MAGNESIUM OXIDE 400 MG TAB PO SCH (08:47)
[2019-06-19] MEDS: AMPICILLIN/SULBACTAM SOD 3,000 MG in 0.9 % SODIUM CHLORIDE 100 ML IV SCH ×2 (12:19→17:43)
[2019-06-19] MEDS: ENOXAPARIN INJ 40 MG/0.4 ML SYR SQ SCH (12:21)
--- NOTE | 2019-06-19 15:41 | Consultation Report ---
DATE OF CONSULTATION: 06/19/2019 HISTORY OF PRESENT ILLNESS: This is an 84-year-old woman seen at the request of Dr. Abdiaziz Davis for right knee pain. This patient is well known to the orthopedic service, had multiple procedures performed on bilateral knees. She had apparently been in her state of usual health and the patient apparently was found by a family member naked in her room. She was unresponsive for an unknown period of time. The patient's son had last spoken with her approximately prior to her admission and she was in normal health at that time. Typically able to drive and take care of herself. She lives alone. She was admitted to the hospital with acute urosepsis, AFib and metabolic encephalopathy with hydronephrosis and obstructing 6 mm proximal left ureteral calculus. She underwent stenting by the Department of Urology, and when her neurological status had improved, she complained of right knee pain. On discussion with her today, she states she fell on her right knee approximately 2 weeks ago and then she had an abrasion. She was ambulating independently; however, yesterday she complained of severe knee pain and inability to ambulate and difficulty moving the knee, and orthopedics was consulted. 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 PAST SURGICAL HISTORY: Hysterectomy. Multiple knee surgeries, bilateral, last of which by Dr. Antoni Ramsey. History of appendectomy. Other multiple surgeries not relevant to this discussion. ALLERGIES: ADHESIVE TAPE, TETANUS TOXOID AND CODEINE. MEDICATIONS: Please note the extensive list noted in the medical record. SOCIAL HISTORY: The patient is . She lives alone. She is a former smoker. Denies alcohol or drug use. She is retired and . PHYSICAL EXAMINATION: This is a pleasant 84-year-old woman who is somnolent; however, she does arouse to verbal stimulation. She recognizes person, place and time. In fact, she had recognized me from previous visitation throughout my knowledge of this patient. Examination of the right knee demonstrates an abrasion along the anterior medial aspect of the knee. It is covered with a Tegaderm occlusive bandage, which is clear. There is local erythema only. No streaking, no redness. There is moderate effusion of the right knee. There is no significant erythema or warmth to the right knee. There is some discomfort with active and passive range of motion of the right knee. She is slow to move the knee. No obvious signs of infection. She has tenderness to palpation of the right knee diffusely. No obvious mechanical loosening. Range of motion is negative 5 degrees of extension and approximately 95 degrees of flexion with slow motion. Limited strength due to discomfort and guarding. Moderate effusion. RADIOGRAPHS: Demonstrate a cemented revision, long stem revision total knee arthroplasty with a broken cerclage cable at the proximal tibia. Soft tissue swelling and moderate effusion is also noted. No interval change compared to previous radiographs reviewed. IMPRESSION: 1. Right knee acute arthritis. 2. Effusion, knee. 3. Abrasion, right knee, status post revision total knee arthroplasty in stable alignment. 4. Resolving urosepsis with obstructive ureteral calculus. She is status post stenting. RECOMMENDATION: Continued monitoring and observation. She is nonsurgical at this time. We would recommend against any aspiration of the right knee since she had shown significant improvement over the last 24 hours with conservative care and observation alone. She may be a candidate for some physical therapy and rehab when her urosepsis and ureteral calculus is resolved. We will follow with you. Thank you for the opportunity to consult in the care of this patient.
--- NOTE | 2019-06-19 17:31 | Hospitalist Progress Note ---
Date of Service June 19, 2019 Assessment & Plan (1) Knee pain: XR negative for fracture. Improving pain. However no quadriceps power on examination. Unclear if this was present prior to this admission, son reports she had revision total knee replacement but cannot remember which side and she has had chronic issues since then. Prior operation performed by [facility]. Consult orthopedics regarding lack of right quadriceps power, possible benefit from brace once graze resolved. I do not believe this is nerve related given CT images performed this admission shows to acute back pathology to explain findings. (2) Severe sepsis with acute organ dysfunction: Sepsis resolved Source - pyelonephritis with obstructing calculus. Gloria cath removed 06/18, now with external catheter. (3) Hydronephrosis with obstructing calculus: Moderate left hydronephrosis with an obstructing 6 mm proximal left ureteral calculus. Status post cystoscopy, left ureteral stent placement Discontinued calcium supplementation, Vit D borderline therefore supplementation continued Appreciate urology management - 14 days antibiotics with urology follow up. (4) Acute kidney injury: Now resolved Multifactorial but mainly obstructive uropathy. Will restart celebrex tomorrow AM to help with leg pain (5) Complicated UTI (urinary tract infection): Pyelonephritis Repeat cultures negative at 24 hours. 07/11 blood cultures positive for enterococcus and since patient not back to baseline will switch antibiotics to cover with Unasyn. No peripheral stigmata of endocarditis. E. coli - also covered with Unasyn. Complicated due to obstructing stone, now S/p ureteral stent placed 06/15 (6) Metabolic encephalopathy: Secondary to infection as above. Not back to baseline as per her son at bedside. I am concerned she will not improve back to her baseline at this time. (7) Fall: Unwitnessed. Unclear history but found on floor. CPK unremarkable. Suspected occurred due to above infection. CT head unremarkable. No acute pathology on left shoulder XR. No fracture on XR of right hip/knee. Grazes/pressure ulcer improving. Appreciate wound care recommendations. (8) Atrial fibrillation with RVR: Paroxysmal. New onset in setting of sepsis. Converted to normal sinus rhythm after diltiazem drip and treatment of sepsis on day of admission. TTE unremarkable. Patient to continue on telemetry, no further reoccurrence at present No full anticoagulation as not shown to reduce risk of stroke when occurs during setting of sepsis and just increases risk of bleeding. (9) Diabetes: Appreciate pharmacy glycemic control with basal bolus insulin regimen. 14 units total 06/18 On glimepiride only as an outpatient. Will discuss potentially starting metformin prior to discharge - no known allergy to this. HbA1c 6.1% (10) Acute respiratory failure with hypoxia: Secondary to sepsis. Now resolved. (11) Dementia: Continue Aricept. (12) Demand ischemia: Downtrending mild elevation in troponin in the setting of sepsis. (13) Hypertension: Started on lisinopril 10 mg PO daily due to persistent elevated blood pressure. PRN hydralazine if sBP persistently >180. (14) DVT prophylaxis: Lovenox 40 mg SQ daily (15) Discharge planning issues: PT/OT evals appreciated. Will need inpatient rehab on discharge, awaiting [facility] as no beds at [facility] till Saturday. Likely will be medically cleared tomorrow if repeat blood cultures negative. Subjective Patient remains somewhat confused. She understands she is in hospital and has a urine tract infection. She reports no acute issues at this time. No acute issues overnight. She reports pain in her right leg is improved. She is unsure when her last bowel movement was. No abdominal pain, nausea, vomiting. Updated his son at bedside. Review of Systems Review of Systems: All systems reviewed & are unremarkable except as noted in HPI & below Physical Exam Constitutional: well developed and + ill appearing; no acute distress Eyes: + anicteric sclerae; normal pupil size ENMT: external ear and nose normal, oropharynx normal Neck: normal visual inspection and trachea midline Respiratory: normal respiratory effort, lungs clear to auscultation no respiratory distress, does not use accessory muscles and no cough Cardiovascular: Rate/Rhythm: regular rate and regular rhythm Heart Sounds: no murmur Vessels: no JVD Extremities: normal capillary refill; no pedal edema Chest (Breasts): Chest: normal inspection of chest Gastrointestinal (Abdomen): Inspection/Auscultation: abdomen not distended and no abdominal edema Percussion/Palpation: abdomen soft; abdomen nontender, no guarding and abdomen not rigid Musculoskeletal: Head/Neck/Chest: normocephalic and head atraumatic Knee: + knee abnormal to inspection (pressure ulcer with mild discharge on anterior knee) and + limited ROM of knee (no quadriceps power on right side) Skin: no rashes, warm and dry Neurologic: moves all extremities, awake and + confused; no focal motor deficits and not obtunded Speech / Cognition: normal speech Motor/Sensory: no tremor, no pronator drift and no sensory deficit Psychiatric: Orientation: alert, oriented to person and oriented to place; + not oriented to time Eye Contact: good eye contact Affect: euthymic affect Thought Process: + confabulations Hallucinations: no auditory hallucinations and no visual hallucinations Cognition: remote memory grossly intact, attention grossly intact and language grossly intact; + recent memory not intact Genitourinary: no CVA tenderness Results & Data Vital Signs (Past 12 Hours) Vital Signs Temp Pulse Resp BP Pulse Ox 06/19/19 14:54 36.9 C 71 20 147/76 H 90 06/19/19 11:53 36.9 C 77 20 167/84 H 91 06/19/19 07:16 36.5 C 73 20 186/85 H 91 PG Care Time/CCT Total # of Minutes Spent Total Time Spent with Patient: Total time spent is greater than 50% in coordination of care (as documented) at patient's floor/unit and/or counseling patient: (1) Knee pain Chronicity: acute Laterality: right Qualified Code(s): M25.561 - Pain in right knee (2) Fall Encounter type: initial encounter Qualified Code(s): W19.XXXA - Unspecified fall, initial encounter (3) Diabetes Diabetes mellitus type: type 2 Diabetes mellitus exterminator helper termite insulin use: without exterminator helper termite use Diabetes mellitus complication status: with hyperglycemia Qualified Code(s): E11.65 - Type 2 diabetes mellitus with hyperglycemia (4) Dementia Dementia type: unspecified type Dementia behavioral disturbance: without beha vioral disturbance Qualified Code(s): F03.90 - Unspecified dementia without behavioral disturbance (5) Hypertension Hypertension type: unspecified Qualified Code(s): I10 - Essential (primary) hypertension
[2019-06-19] MEDS: ACETAMINOPHEN 325 MG TAB PO PRN (17:43)
[2019-06-19] MEDS: DONEPEZIL HCL 10 MG TAB PO SCH (20:49)
[2019-06-19] MEDS: SIMVASTATIN 20 MG TAB PO SCH (20:49)
[2019-06-20] MEDS: AMPICILLIN/SULBACTAM SOD 3,000 MG in 0.9 % SODIUM CHLORIDE 100 ML IV SCH ×5 (00:16→23:33)
[2019-06-20 06:51] LABS: BUN Creatinine Ratio 22.4 (10-20); Calcium 9.1 mg/dl (8.5-10.1); Creatinine Clr Calc Pharmacy 93.4 ml/min; Est GFR (African American) 103.1; Est GFR (Non-African American) 88.9; Magnesium 1.7 mg/dl (1.8-2.4); Potassium 3.3 mmol/L (3.5-5.1)
[2019-06-20] MEDS: ACETAMINOPHEN 325 MG TAB PO PRN ×2 (07:59→21:47)
[2019-06-20] MEDS: CeleBREX 200 MG CAP PO SCH (08:00)
[2019-06-20] MEDS: LACTOBACILLUS ACIDOPHILUS (FLORANEX) TAB PO SCH ×4 (08:00→20:17)
[2019-06-20] MEDS: MAGNESIUM OXIDE 400 MG TAB PO SCH (08:00)
[2019-06-20] MEDS: VITAMIN B COMPLEX TAB PO SCH (08:01)
[2019-06-20] MEDS: INSULIN ASPART 100 UNITS/ML 3 ML PEN SC SCH ×4 (08:03→20:19)
[2019-06-20] MEDS: INSULIN GLARGINE SOLOSTAR 100 UNITS/ML 3 ML PEN SC SCH ×2 (08:04→20:18)
[2019-06-20] MEDS: lisinopriL 10 MG TAB PO SCH (08:05)
[2019-06-20] MEDS: POTASSIUM CHLORIDE 20 MEQ TABCR PO SCH (10:35)
[2019-06-20] MEDS: ENOXAPARIN INJ 40 MG/0.4 ML SYR SQ SCH (12:35)
--- NOTE | 2019-06-20 12:50 | Magnetic Resonance Report ---
MRI OF THE BRAIN WITHOUT CONTRAST CLINICAL HISTORY: ongoing confusion, ?CVA COMPARISON STUDY: Head CT June 15, 2019. TECHNIQUE: Utilizing a 1.5 Andreia magnet and dedicated coil, multiplanar, multiecho imaging of the bra in was performed without IV contrast. FINDINGS: There are no foci of restricted diffusion to suggest acute infarct. No acute intracranial h emorrhage, midline shift or mass effect is present. Ventricular dilatation is unchanged and likely du e to atrophy. The basilar cisterns are patent. There are no extra axial collections. Flow-voids for i ntracranial vessels are present. No intracranial masses identified on this unenhanced examination. Ch ronic changes within the left sphenoid sinus are noted. Orbits are unremarkable. White matter T2 hype rintense foci suggest moderate small vessel disease. IMPRESSION: 1. No acute intracranial findings. 2. Moderate atrophy and small vessel disease. Stable ventricular dilatation, due to atrophy. Electronically signed by: Enrrique Johns M.D. 06/20/2019 12:47 PM
--- NOTE | 2019-06-20 19:56 | Hospitalist Progress Note ---
Date of Service June 20, 2019 Assessment & Plan (1) Knee pain: XR negative for fracture. Improving pain. Appreciate orthopedic consult. Patient appears to have use of her quadriceps although very weak today. (2) Severe sepsis with acute organ dysfunction: Sepsis resolved Source - pyelonephritis with obstructing calculus. Gloria cath removed 06/18, continuing with external catheter. (3) Hydronephrosis with obstructing calculus: Moderate left hydronephrosis with an obstructing 6 mm proximal left ureteral calculus. Status post cystoscopy, left ureteral stent placement Discontinued calcium supplementation, Vit D borderline therefore supplementation continued Appreciate urology management - 14 days antibiotics with urology follow up. (4) Acute kidney injury: Now resolved Multifactorial but mainly obstructive uropathy. Restarted on celebrex 06/20 to aid with pain relief. (5) Complicated UTI (urinary tract infection): Pyelonephritis Repeat cultures negative at 24 hours. 07/11 blood cultures positive for enterococcus E. coli Continue Unasyn until blood cultures negative at 48 hours Complicated due to obstructing stone, now S/p ureteral stent placed 06/15 (6) Metabolic encephalopathy: Secondary to infection as above. Not back to baseline as per son Benedict. Due to enterococcus growing on initial blood culture will get MRI brain to rule out septic emboli. (7) Fall: Unwitnessed. Unclear history but found on floor. CPK unremarkable. Suspected occurred due to above infection. CT head unremarkable. No acute pathology on left shoulder XR. No fracture on XR of right hip/knee. Grazes/pressure ulcer improving. Appreciate wound care recommendations. (8) Atrial fibrillation with RVR: x1 episode. New onset in setting of sepsis. Converted to normal sinus rhythm after diltiazem drip and treatment of sepsis on day of admission. TTE unremarkable. If no further recurrence overnight will move patient to med/surg once medically cleared for discharge No full anticoagulation as not shown to reduce risk of stroke when occurs during setting of sepsis and just increases risk of bleeding. (9) Diabetes: Appreciate pharmacy glycemic control with basal bolus insulin regimen. Glucose control appears adequate. On glimepiride only as an outpatient. Will discuss potentially starting metformin prior to discharge - no known allergy to this. HbA1c 6.1% (10) Acute respiratory failure with hypoxia: Secondary to sepsis. Now resolved. (11) Dementia: Continue Aricept. No delirium noted at this admission. (12) Demand ischemia: On admission, downtrending mild elevation in troponin in the setting of sepsis. (13) Hypertension: Increase lisinopril to 20 mg p.o. daily. PRN hydralazine if sBP persistently >180. (14) DVT prophylaxis: Lovenox 40 mg SQ daily (15) Discharge planning issues: PT/OT evals appreciated. Will need inpatient rehab on discharge, awaiting [facility] as no beds at [facility] till Saturday. She is medically cleared for discharge as long as her blood cultures are negative at 48 hours. Subjective Patient making slow progress with confusion. She is orientated to time, place, person. Is making more sense with conversations. Understands that she was found at home. Right knee pain continues although is improving. She is now able to extend her knee but not against gravity. No fevers or chills. Review of Systems Review of Systems: All systems reviewed & are unremarkable except as noted in HPI & below Physical Exam Constitutional: well developed and + obese; no acute distress Eyes: + anicteric sclerae; normal pupil size ENMT: external ear and nose normal, oropharynx normal Neck: normal visual inspection and trachea midline Respiratory: normal respiratory effort, lungs clear to auscultation no respiratory distress, does not use accessory muscles and no cough Cardiovascular: Rate/Rhythm: regular rate and regular rhythm Heart Sounds: no murmur Vessels: no JVD Extremities: normal capillary refill; no pedal edema No peripheral stigmata of infective endocarditis Chest (Breasts): Chest: normal inspection of chest Gastrointestinal (Abdomen): Inspection/Auscultation: abdomen not distended and no abdominal edema Percussion/Palpation: abdomen soft; abdomen nontender, no guarding and abdomen not rigid Musculoskeletal: Head/Neck/Chest: normocephalic and head atraumatic Knee: + knee abnormal to inspection (pressure ulcer with mild discharge on anterior knee, improving) and + limited ROM of knee (MRC 2/5 right knee ext) Skin: Pressure ulcer on right knee, pressure ulcer on left abdomen, graze on left thigh. All inspected and appear improving at this time. Neurologic: moves all extremities, awake and + confused; no focal motor deficits and not obtunded Speech / Cognition: normal speech Motor/Sensory: no tremor, no pronator drift and no sensory deficit Psychiatric: Orientation: alert, oriented to person, oriented to place and oriented to time Eye Contact: good eye contact Affect: euthymic affect Thought Process: + tangential thought process Hallucinations: no auditory hallucinations and no visual hallucinations Cognition: remote memory grossly intact, attention grossly intact and language grossly intact; + recent memory not intact Results & Data Vital Signs (Past 12 Hours) Vital Signs Temp Pulse Pulse Resp BP Pulse Ox 06/20/19 15:53 37.0 C 66 18 166/79 H 95 06/20/19 15:51 72 06/20/19 11:17 37.2 C 72 16 162/72 H 94 06/20/19 07:50 76 PG Care Time/CCT Total # of Minutes Spent Total Time Spent with Patient: Total time spent is greater than 50% in coordination of care (as documented) at patient's floor/unit and/or counseling patient: (1) Knee pain Chronicity: acute Laterality: right Qualified Code(s): M25.561 - Pain in right knee (2) Fall Encounter type: initial encounter Qualified Code(s): W19.XXXA - Unspecified f all, initial encounter (3) Diabetes Diabetes mellitus type: type 2 Diabetes mellitus correction insulin use: without correction use Diabetes mellitus complication status: with hyperglycemia Qualified Code(s): E11.65 - Type 2 diabetes mellitus with hyperglycemia (4) Dementia Dementia type: unspecified type Dementia behavioral disturbance: without behavioral disturbance Qualified Code(s): F03.90 - Unspecified dementia without behavioral disturbance (5) Hypertension Hypertension type: unspecified Qualified Code(s): I10 - Essential (primary) hypertension
[2019-06-20] MEDS: DONEPEZIL HCL 10 MG TAB PO SCH (20:16)
[2019-06-20] MEDS: SIMVASTATIN 20 MG TAB PO SCH (20:20)
[2019-06-21] MEDS: AMPICILLIN/SULBACTAM SOD 3,000 MG in 0.9 % SODIUM CHLORIDE 100 ML IV SCH ×4 (04:41→23:09)
[2019-06-21] MEDS: ACETAMINOPHEN 325 MG TAB PO PRN ×3 (05:40→21:12)
[2019-06-21 06:54] LABS: BUN Creatinine Ratio 18.6 (10-20); Calcium 9.5 mg/dl (8.5-10.1); Creatinine Clr Calc Pharmacy 77.9 ml/min; Est GFR (African American) 97.7; Est GFR (Non-African American) 84.3; Magnesium 1.8 mg/dl (1.8-2.4); Potassium 3.7 mmol/L (3.5-5.1)
[2019-06-21] MEDS: LACTOBACILLUS ACIDOPHILUS (FLORANEX) TAB PO SCH ×4 (07:53→21:12)
[2019-06-21] MEDS: CeleBREX 200 MG CAP PO SCH (07:53)
[2019-06-21] MEDS: POTASSIUM CHLORIDE 20 MEQ TABCR PO SCH (07:54)
[2019-06-21] MEDS: MAGNESIUM OXIDE 400 MG TAB PO SCH (07:54)
[2019-06-21] MEDS: lisinopriL 20 MG TAB PO SCH (07:55)
[2019-06-21] MEDS: VITAMIN B COMPLEX TAB PO SCH (07:55)
[2019-06-21] MEDS: INSULIN GLARGINE SOLOSTAR 100 UNITS/ML 3 ML PEN SC SCH ×2 (07:56→21:13)
[2019-06-21] MEDS: INSULIN ASPART 100 UNITS/ML 3 ML PEN SC SCH ×4 (07:59→21:25)
--- NOTE | 2019-06-21 09:46 | Pharmacy Report ---
Pharmacy Glycemic Short Note 2 - Date of Service June 21, 2019 - Glycemic Short BSG Results (Last 24 hours): 06/20/19 06/20/19 06/20/19 11:29 16:38 20:12 Glucose POC Glucose 157 H 128 H 148 H 06/21/19 06/21/19 05:44 07:39 Glucose 134 H POC Glucose 151 H OUTPATIENT ANTIDIABETIC REGIMEN: * Glimepiride 2mg PO daily * A1c = 6.1% 06/15/19 ASSESSMENT: Pt's BSGs have remained fairly well controlled over the previous 36- 48hrs. I do not anticipate an acute fluctuation in insulin requirements. We will continue her current insulin requirements. Unasyn continues. Diet continues. PLAN FOR INPATIENT GLYCEMIC CONTROL: * Hold outpatient oral diabetes medications * Basal insulin * Lantus BID per the following scale: * 0 units if BSG less than 110 * 8 units if BSG 110-160 * 14 units if BSG greater than 160 * Bolus insulin * NovoLog per scale ACHS or Q6hrs while NPO * Goal Range: Low 110 mg/dL - High 140 mg/dL * Correction Factor: 30 mg/dL/unit * Nutritional / Prandial insulin per carb ratio of 1 unit per 10 grams CHO consumed PLAN FOR DISCHARGE: * A1C 6.1% potentially indicative of her having lows at home. Saw that attending is considering switching Glimepiride --> Metformin. I agree with this, especially if she is having lows at home on the Glimepiride. Would recommend Metformin 500mg XR with dinner.
[2019-06-21] MEDS: METFORMIN HCL ER 500 MG TABCR PO SCH (12:23)
[2019-06-21] MEDS: ENOXAPARIN INJ 40 MG/0.4 ML SYR SQ SCH (12:26)
--- NOTE | 2019-06-21 20:49 | Hospitalist Progress Note ---
Date of Service June 21, 2019 Assessment & Plan (1) Knee pain: XR negative for fracture. Improving pain. Appreciate orthopedic consult. Improving quadriceps strength daily. (2) Severe sepsis with acute organ dysfunction: Sepsis resolved Source - pyelonephritis with obstructing calculus. Gloria cath removed 06/18, continuing with external catheter. (3) Hydronephrosis with obstructing calculus: Moderate left hydronephrosis with an obstructing 6 mm proximal left ureteral calculus. Status post cystoscopy, left ureteral stent placement Discontinued calcium supplementation, Vit D borderline therefore supplementation continued Appreciate urology management - 14 days antibiotics with urology follow up. (4) Acute kidney injury: Now resolved Multifactorial but mainly obstructive uropathy. Restarted on celebrex 06/20 to aid with pain relief. Newly started on lisinopril for hypertension therefore will continue to monitor BMP daily. (5) Complicated UTI (urinary tract infection): Pyelonephritis Repeat cultures negative to date. 07/11 blood cultures positive for enterococcus E. coli Consult infectious disease given enterococcus bacteremia, unclear if contaminant or need to cover with intravenous antibiotics. Complicated due to obstructing stone, now S/p ureteral stent placed 06/15 (6) Metabolic encephalopathy: Secondary to infection as above. MRI brain with no acute pathology. Suspect given significance of infection she may not return to her baseline. (7) Fall: Unwitnessed. Unclear history but found on floor. CPK unremarkable. Suspected occurred due to above infection. CT head unremarkable. No acute pathology on left shoulder XR. No fracture on XR of right hip/knee. Grazes/pressure ulcer improving. Appreciate wound care recommendations. (8) Atrial fibrillation with RVR: x1 episode. New onset in setting of sepsis. [id number] 5. LA dimension 3.6cm. No prior strokes noted on MRI or history. Converted to normal sinus rhythm after diltiazem drip and treatment of sepsis on day of admission. TTE unremarkable. No recurrence since admission therefore okay to transfer to medical room today No full anticoagulation while admitted as not shown to reduce risk of in- hospital stroke when occurs during setting of sepsis and just increases risk of bleeding. Anticoagulation could be cautiously considered on discharge however patient is a high falls risk and would also need to stop Celebrex if on anticoagulation. (9) Diabetes: Appreciate pharmacy glycemic control with basal bolus insulin regimen. Glucose control appears adequate. We will add metformin XR 500 mg -previously caused nausea, but unsure at what dose. On glimepiride only as an outpatient; given HbA1c and hypoglycemic events as outpatient recommend this is discontinued on discharge. HbA1c 6.1% (10) Acute respiratory failure with hypoxia: Secondary to sepsis. Now resolved. (11) Dementia: Continue Aricept. No delirium noted at this admission. (12) Demand ischemia: On admission, downtrending mild elevation in troponin in the setting of sepsis. (13) Hypertension: Blood pressure appears improved on increased dose of lisinopril to 20 mg p.o. daily, new this admission. Continue to monitor BMP given slight bump today. Will add low dose carvedilol for rate control if goes back into a. fib and help with BP PRN hydralazine if sBP persistently >180. (14) DVT prophylaxis: Lovenox 40 mg SQ daily (15) Discharge planning issues: PT/OT evals appreciated. Will need inpatient rehab on discharge, awaiting [facility] as no beds at [facility] till Saturday. She is medically cleared for discharge at this time although will consult infectious disease to determine antibiotics given enterococcus in addition to E. coli grown on initial blood cultures. Subjective No acute pathology overnight. No concerns or questions today. She is unsure whether leg pain is improving but does not appear to be bothering her much at present. Able to move her right leg more today. Pain severity 1/10. Aching. No radiation. Around anterior right knee. Review of Systems Review of Systems: All systems reviewed & are unremarkable except as noted in HPI & below Physical Exam Constitutional: well developed and + obese; no acute distress Eyes: + anicteric sclerae; normal pupil size ENMT: external ear and nose normal, oropharynx normal Neck: normal visual inspection and trachea midline Respiratory: normal respiratory effort, lungs clear to auscultation (Anteriorly) no respiratory distress, does not use accessory muscles and no cough Cardiovascular: Rate/Rhythm: regular rate and regular rhythm Heart Sounds: no murmur Vessels: no JVD Extremities: normal capillary refill and + pedal edema (1+ bilaterally) Chest (Breasts): Chest: normal inspection of chest Gastrointestinal (Abdomen): Inspection/Auscultation: abdomen not distended and no abdominal edema Percussion/Palpation: abdomen soft; abdomen nontender, no guarding and abdomen not rigid Musculoskeletal: Head/Neck/Chest: normocephalic and head atraumatic Knee: + knee abnormal to inspection (pressure ulcer with mild discharge on anterior knee, improving) and + limited ROM of knee (MRC 2/5 right knee ext) Neurologic: moves all extremities and awake; no focal motor deficits and not confused Speech / Cognition: normal speech Psychiatric: A+Ox3, euthymic affect Results & Data Vital Signs (Past 12 Hours) Vital Signs Temp Pulse Resp BP Pulse Ox 06/21/19 15:30 36.8 C 68 17 142/58 H 93 PG Care Time/CCT Total # of Minutes Spent Total Time Spent with Patient: Total time spent is greater than 50% in coordination of care (as documented) at patient's floor/unit and/or counseling patient: (1) Knee pain Chronicity: acute Laterality: right Qualified Code(s): M25.561 - Pain in right knee (2) Fall Encounter type: initial encounter Qualified Code(s): W19.XXXA - Unspecified fall, initial encounter (3) Diabetes Diabetes mellitus type: type 2 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
[2019-06-21] MEDS: DONEPEZIL HCL 10 MG TAB PO SCH (21:12)
[2019-06-21] MEDS: SIMVASTATIN 20 MG TAB PO SCH (21:13)
[2019-06-21] MEDS: carvediloL 3.125 MG TAB PO SCH (21:54)
[2019-06-22] MEDS: AMPICILLIN/SULBACTAM SOD 3,000 MG in 0.9 % SODIUM CHLORIDE 100 ML IV SCH ×3 (05:03→17:31)
[2019-06-22 07:17] LABS: BUN Creatinine Ratio 16.5 (10-20); Calcium 9.5 mg/dl (8.5-10.1); Creatinine Clr Calc Pharmacy 60.7 ml/min; Est GFR (African American) 82.8; Est GFR (Non-African American) 71.4; Magnesium 1.9 mg/dl (1.8-2.4); Potassium 4.1 mmol/L (3.5-5.1)
[2019-06-22] MEDS: carvediloL 3.125 MG TAB PO SCH (07:30)
[2019-06-22] MEDS: CeleBREX 200 MG CAP PO SCH (07:31)
[2019-06-22] MEDS: VITAMIN B COMPLEX TAB PO SCH (07:31)
[2019-06-22] MEDS: POTASSIUM CHLORIDE 20 MEQ TABCR PO SCH (07:31)
[2019-06-22] MEDS: LACTOBACILLUS ACIDOPHILUS (FLORANEX) TAB PO SCH ×3 (07:31→17:12)
[2019-06-22] MEDS: lisinopriL 20 MG TAB PO SCH (07:32)
[2019-06-22] MEDS: MAGNESIUM OXIDE 400 MG TAB PO SCH (07:32)
[2019-06-22] MEDS: INSULIN GLARGINE SOLOSTAR 100 UNITS/ML 3 ML PEN SC SCH (08:03)
[2019-06-22] MEDS: INSULIN ASPART 100 UNITS/ML 3 ML PEN SC SCH ×3 (08:04→17:12)
[2019-06-22] MEDS ORDERED: INSULIN GLARGINE SOLOSTAR 100 UNITS/ML 3 ML PEN SC SCH (09:00)
--- NOTE | 2019-06-22 10:42 | Infectious Disease Consult ---
Date of Consultation June 22, 2019 Assessment & Plan (1) E. coli sepsis: pt wtih polymicrobial sepsis, likely gu source, pyelo with obstructing stone, now s/p stenting. repeat cultures negative to date (06/18) and wbc improved. Would continue unasyn x 14 days from first negative blood culture. (2) UTI (urinary tract infection): History of Present Illness Attending Physician: Aggie Felix MD pt admitted with abd pain, found to have right hydronephrosis and 6mm obstructing stone, urology eval and stent placed, tolerated well. UA on 06/15 10- 30 wbc +4 bacteria, culture > 3 organisms. Blood cultures 06/15 growing pansensitive E. coli and E. faecalis. on unasyn since 06/19 and tolerating well. repeat blood cultures from 06/16 growing E. coli as well. 06/18 cultures negative to date. afebrile. tolerating abx, oob to chair on my exam, states she is feeling warm, no shaking chills. eating better, no n/v/d. still with intermittent abd pain and back pain, none currently. no cp, sob, cough. wbc 10 on 06/18, was 33 on admission. creat 0.7. Echo on 06/16 negative. She is overall feeling better but still feeling weak and warm. ID consulted for ? need for treatment of E. faecalis. Allergies Allergy/AdvReac Type Severity Reaction Status Date / Time adhesive Allergy Unknown SKIN Verified 06/15/19 11:03 BLISTERS tetanus toxoid, adsorbed Allergy Unknown EDEMA AT Verified 06/15/19 11:03 SITE codeine AdvReac Unknown HEART Verified 06/15/19 11:03 PALPITATIONS, RECIEVED MORPHINE IV IN 2004 ADMIT Home Medications Home Medications Medication Instructions Recorded Confirmed Type calcium carbonate 600 mg calcium 600 mg PO QAM tab 01/01/19 06/15/19 History (1,500 mg) tablet cholecalciferol (vitamin D3) 50 2,000 units PO QAM cap 01/01/19 06/15/19 History mcg (2,000 unit) capsule coenzyme Q10 10 10 mg capsule 10 mg PO DAILY cap 01/01/19 06/15/19 History glimepiride 2 mg tablet 4 mg PO DAILY #180 tab 01/01/19 06/15/19 History multivitamin 1 tab PO DAILY 01/01/19 06/15/19 History omega-3 acid ethyl esters 1 gram 2 cap PO QAM cap 01/01/19 06/15/19 History capsule tolterodine 4 mg capsule,extended 4 mg PO DAILY #90 cap 01/01/19 06/15/19 History release 24 hr vitamin B complex 1 tab PO DAILY 01/01/19 06/15/19 History celecoxib [Celebrex] 200 mg PO QAM 06/15/19 06/15/19 History donepezil 10 mg tablet See Rx Instructions .ROUTE 06/15/19 Rx .COMPLEX #90 tab psyllium husk [Metamucil] 0 g PO UD 06/15/19 06/15/19 History simvastatin 20 mg PO HS 06/15/19 06/15/19 History tramadol 50 mg PO QAM 06/15/19 06/15/19 History Patient History Medical History Abnormal finding on imaging Acute kidney injury Admitted to intensive care unit Cognitive impairment (Chronic) Complicated urinary tract infection Cyst of kidney, acquired Edema of left lower extremity Fatigue Gait instability Gastroesophageal reflux Hyperlipidemia Knee pain Laceration Memory loss, short term Metabolic encephalopathy Other mechanical complication of prosthetic joint implant Pain of right tibia Right knee pain Severe sepsis Type 2 diabetes mellitus Urinary urgency Vitamin D deficiency Surgical History H/O: hysterectomy History of appendectomy Hx of knee surgery Family History Sister Diabetes Stroke Brother Diabetes Prostate cancer Father Lung disease Social History Preferred Language: Greek Communication Ability: Effective Sole Splitter Required: No Beliefs That Will Affect Care: None Current Living Situation: Alone Feels Safe at Home: Yes Smoking Status: Former smoker Second Hand Exposure: No ; Hx Alcohol Use: No Hx Substance Use: No caffeine: No Seatbelt Use: always Review of Systems Review of Systems: All systems reviewed & are unremarkable except as noted in HPI & below Physical Exam Constitutional: WD/WN, vitals as above Eyes: PERRL, conjunctivae normal, anicteric sclerae ENMT: external ear and nose normal, oropharynx normal Neck: normal visual inspection Respiratory: normal respiratory effort, lungs clear to auscultation Cardiovascular: RRR, no murmur, no edema Gastrointestinal (Abdomen): normal bowel sounds, soft, nontender, no hepatosplenomegaly Musculoskeletal: no cyanosis or clubbing, extremities motor strength 5/5 Skin: no rashes, warm and dry Psychiatric: A+Ox3, euthymic affect Results & Data Vital Signs (Past 12 Hours) Vital Signs Temp Pulse Resp BP Pulse Ox 06/22/19 07:12 36.7 C 60 18 167/78 H 95 06/21/19 23:27 36.8 C 70 20 152/76 H 94 Laboratory Results Microbiology 06/18/19 16:12 Blood Aerobic Blood Culture - Preliminary No growth in Aerobic bottle after 48 hours. 06/18/19 16:12 Blood Anaerobic Blood Culture - Preliminary No growth in Anaerobic bottle after 48 hours. 06/18/19 16:08 Blood Aerobic Blood Culture - Preliminary No growth in Aerobic bottle after 48 hours. 06/18/19 16:08 Blood Anaerobic Blood Culture - Preliminary No growth in Anaerobic bottle after 48 hours. 06/15/19 11:20 Blood Aerobic Blood Culture - Final Escherichia coli Enterococcus faecalis 06/15/19 11:20 Blood Anaerobic Blood Culture - Final Escherichia coli 06/16/19 10:20 Blood Aerobic Blood Culture - Preliminary Escherichia coli 06/16/19 10:20 Blood Anaerobic Blood Culture - Final 06/16/19 10:18 Blood Aerobic Blood Culture - Preliminary Escherichia coli 06/16/19 10:18 Blood Anaerobic Blood Culture - Final 06/15/19 11:28 Blood Aerobic Blood Culture - Final Escherichia coli 06/15/19 11:28 Blood Anaerobic Blood Culture - Final 06/15/19 11:15 Urine,Straight Cath Urine Culture - Final Three types of organisms present, all high counts. Repeat collection recommended. No further identifications or sensitivities to follow. PG Care Time/CCT Total # of Minutes Spent Total Time Spent with Patient: Total time spent is greater than 50% in coordination of care (as documented) at patient's floor/unit and/or counseling patient: (1) UTI (urinary tract infection) Hematuria presence: with hematuria Urinary tract infection type: site unspecified Qualified Code(s): N39.0 - Urinary tract infection, site not specified; R31.9 - Hematuria, unspecified
[2019-06-22] MEDS: METFORMIN HCL ER 500 MG TABCR PO SCH (11:20)
[2019-06-22] MEDS: ENOXAPARIN INJ 40 MG/0.4 ML SYR SQ SCH (11:20)
[2019-06-22 15:00] VITALS: TEMP 97.3; O2SAT 94
[2019-06-22 17:08] VITALS: BP 167/78; PULSE 77
--- NOTE | 2019-06-22 17:12 | Discharge Summary ---
Date of Service June 22, 2019 Admission HPI Per Admitting Provider 84 years old female with past medical history of dementia, recurrent UTI, diabetes mellitus type 2 on oral hypoglycemic, dyslipidemia and hyperactive bladder. Presented to the ED with an episode of fall that possibly happened 2 days prior to admission son found her lying on the floor on her stomach last time was seen was 3 days ago patient was too weak to stand up and stayed on the floor. She does not remember details of how she fell. She was brought to the ED and initial work-up showed white blood cell count of more than 30,000. General screening with a CT head, chest x-ray, left shoulder x-ray were all within normal limits, she complained of some left shoulder pain but the x-ray showed hardware intact for previous open reduction internal fixation. CT scan abdomen and pelvis showed Moderate left hydronephrosis with an obstructing 6 mm proximal left ureteral calculus. Urologist was contacted and took the patient immediately to the OR status post cystoscopy and stent placement. Blood cultures and urine cultures were sent and patient was found to have new onset atrial fibrillation, started on Cardizem drip, she was also found to have DKA and will be admitted to ICU. Principal Diagnosis Obstructive uropathy, UTI, septicemia, Acute kidney injury Discharge Exam Constitutional WD/WN, vitals as above Eyes + anicteric sclerae ENMT external ear and nose normal, oropharynx normal Neck trachea midline, no thyromegaly Respiratory normal respiratory effort, lungs clear to auscultation Cardiovascular RRR, no murmur, no edema Chest (Breasts) Chest: normal inspection of chest Gastrointestinal (Abdomen) normal bowel sounds, soft, nontender, no hepatosplenomegaly Musculoskeletal Extremities: no cyanosis and no clubbing Right knee mild effusion, decreased ROM Skin overlying rt knee with small abrasion, superficial, mild surrounding erythema Skin + lesion (large area of superfical abrasion left thigh and knee) Neurologic moves all extremities and awake; no focal motor deficits Psychiatric Orientation: alert, oriented to person, oriented to place, oriented to time and cooperative Eye Contact: good eye contact Speech: normal rate/rhythm/volume of speech Lymphatic no lymphedema Discharge Data Allergies Allergy/AdvReac Type Severity Reaction Status Date / Time adhesive Allergy Unknown SKIN Verified 06/15/19 11:03 BLISTERS tetanus toxoid, adsorbed Allergy Unknown EDEMA AT Verified 06/15/19 11:03 SITE codeine AdvReac Unknown HEART Verified 06/15/19 11:03 PALPITATIONS, RECIEVED MORPHINE IV IN 2004 ADMIT Consultations Consult Artist Suspect Routine 06/17/19 10:47 Consult Urology Routine 06/19/19 11:22 Consult Orthopedic Surgery Routine 06/21/19 20:38 Consult Infectious Diseases Routine Procedures Performed Operation Date: 06/15/19 15:50 Actual Procedures p Cystoscopy, Left Retrograde pyelogram; Ureteral Stent Insertion - Christiano Mendez, Ordered Studies 06/15/19 10:23 CT cervical spine wo con Stat CT head/brain wo con Stat 06/15/19 10:55 CT abd pelvis wo con Stat 06/15/19 13:00 FL retrograde includes kub Routine 06/20/19 10:53 MR brain wo con Routine Shoulder xray CXR Knee xray Hip/pelvis xray Hospital Course (1) Knee pain: XR negative for fracture. Improving pain. Appreciate orthopedic consult. Improving quadriceps strength daily. (2) Severe sepsis with acute organ dysfunction: Septicemia with E. coli and Enterobacter Sepsis resolved Source - pyelonephritis with obstructing calculus. Gloria cath removed 06/18 -continue IV abx for 14 days after last sterile culture (3) Hydronephrosis with obstructing calculus: Moderate left hydronephrosis with an obstructing 6 mm proximal left ureteral calculus. Status post cystoscopy, left ureteral stent placement Discontinued calcium supplementation, Vit D borderline therefore supplementation continued Appreciate urology management - 14 days antibiotics with urology follow up. -needs definitive stone management and eventual stent removal in the next 2 weeks (4) Acute kidney injury: Now resolved Multifactorial but mainly obstructive uropathy. Restarted on celebrex 06/20 to aid with pain relief. Newly started on lisinopril for hypertension but renal function remains stable (5) Complicated UTI (urinary tract infection): Pyelonephritis Repeat cultures negative to date. 07/11 blood cultures positive for enterococcus E. coli Consult infectious disease given enterococcus bacteremia, -ID recommends intravenous antibiotics with Unasyn x 14 days from date of last sterile Blood cxs--> needs 10 more days of IV Unasyn after discharge Complicated due to obstructing stone, now S/p ureteral stent placed 06/15 (6) Metabolic encephalopathy: Secondary to infection as above. MRI brain with no acute pathology. Suspect given significance of infection she may not return to her baseline for a few weeks but is improved on the day of discharge as per staff (7) Fall: Unwitnessed. Unclear history but found on floor. CPK unremarkable. Suspected occurred due to above infection. CT head unremarkable. No acute pathology on left shoulder XR. No fracture on XR of right hip/knee. Pressure ulcer improving. Appreciate wound care recommendations. (8) Atrial fibrillation with RVR: x1 episode. New onset in setting of sepsis. [id number] 5. LA dimension 3.6cm. No prior strokes noted on MRI or history. Converted to normal sinus rhythm after diltiazem drip and treatment of sepsis on day of admission. TTE unremarkable. No recurrence since admission therefore okay to transfer to medical room today No full anticoagulation while admitted as not shown to reduce risk of in- hospital stroke when occurs during setting of sepsis and just increases risk of bleeding. Anticoagulation could be cautiously considered after discharge however patient is a high falls risk and would also need to stop Celebrex if on anticoagulation. -consider senior care event monitor at SNF (9) Diabetes: Appreciate pharmacy glycemic control with basal bolus insulin regimen. Glucose control appears adequate. - added metformin XR 500 mg -previously caused nausea, but unsure at what dose. On glimepiride only as an outpatient; given HbA1c and hypoglycemic events as outpatient recommend this is discontinued on discharge. HbA1c 6.1% (10) Acute respiratory failure with hypoxia: Secondary to sepsis. Now resolved. (11) Dementia: Continue Aricept. (12) Demand ischemia: On admission, downtrending mild elevation in troponin in the setting of sepsis. (13) Hypertension: Blood pressure appears improved on increased dose of lisinopril to 20 mg p.o. daily, new this admission. -also added low dose carvedilol for rate control if goes back into a. fib and help with BP (14) DVT prophylaxis: Lovenox 40 mg SQ daily was provided (15) Discharge planning issues: PT/OT evals appreciated. Stable for dc to [facility] today Ultrasound-guided peripheral IV was placed on 06/22/19 and can remain in place for up to 28 days Total Time Total Time Spent Total Time Spent (In Minutes): 35 min Total Time Includes: Examination of the Patient, Discharge Planning and Medication Reconciliation Discharge Plan Discharge Items Patient Disposition: Transfer Long Term Fac Reason For Visit: FALL Discharge Diagnosis: Sepsis from kidney infection due to obstructing kidney stone with E. coli blood infection New onset paroxysmal (intermittent) atrial fibrillation Condition on Discharge: Fair Goals: You have been hospitalized for an acute medical problem. During your stay at [facility], we have made an effort to correct the problem that brought you to the hospital while keeping you as comfortable as possible. Medications were used to bring your condition under control and your discharge instructions will include directions for any medications you should take after leaving the hospital. Please make sure you see your Primary Care Provider as part of your follow up plan. Activity: As commented below Lifting: Gradually increase as tolerated Bathing: No limitations Exercise/Sports: Gradually increase as tolerated Non-emergency contact: Primary Care Provider and Urologist Call non-emergency contact if: you have any medication questions, your symptoms worsen, your pain is not controlled, your pain is worsening, your pain is unusual for you, your pain is concerning for you and your temperature is above 101 Follow-up/Referrals: Aniket Drake MD [Primary Care Provider] - Christiano Mendez DO [Physician] - (Please follow up within 2 weeks for definitive stone management and removal of stent ) Diet: Carb Consistent or DM2 and Heart Healthy Addtl Attending Provider Instructions: Please finish out 10 more days of IV antibiotics with Unasyn. An ultrasound- guided peripheral IV was placed on 06/22/19 and can remain in place for up to 28 days. She will need continued care of acute right knee arthritis and superficial abrasions. Also needs Urology follow up for definitive kidney stone management and eventual ureteral stent removal. Pending Studies at Discharge: Yes (Final repeat Blood cultures-no growth to date) Stand-Alone Forms: My [facility] Skilled Items Patient informed of condition?: Yes DNR: No Discharge Level of Care: Skilled Communicable Disease: No Discharge Prognosis: Improving Lines: US Guided Peripheral IV Urinary Catheter: No Medications and DC Order Prescriptions: New acetaminophen [Mapap (acetaminophen)] 325 mg Tablet 650 mg PO Q4H PRN (Reason: pain) Qty: 30 RF: 0 lisinopril 20 mg Tablet 20 mg PO QAM Qty: 30 RF: 0 carvedilol 3.125 mg Tablet 3.125 mg PO BID Qty: 60 RF: 0 Lantus Solostar U-100 Insulin 100 unit/mL (3 mL) Insulin Pen 10 unit SC BID Qty: 15 RF: 0 Lactobacillus acidoph-L.bulgar [Floranex] 1 million cell Tablet 4 tab PO QIDM Qty: 120 RF: 0 Novolog Flexpen U-100 Insulin 100 unit/mL (3 mL) Insulin Pen 1 units SC ACHS Qty: 15 RF: 0 metformin 500 mg Tablet Extended Release 24 Hr 500 mg PO QDL Qty: 30 RF: 0 ampicillin-sulbactam [Unasyn] 3 gram recon soln 3 gm IV Q6H 10 Days Qty: 40 RF: 0 Continued donepezil 10 mg tablet See Rx Instructions .ROUTE .COMPLEX Qty: 90 RF: 3 coenzyme Q10 10 mg capsule 10 mg PO DAILY RF: 0 omega-3 acid ethyl esters 1 gram capsule 2 cap PO QAM RF: 0 vitamin B complex tablet 1 tab PO DAILY RF: 0 cholecalciferol (vitamin D3) 2,000 unit capsule 2,000 units PO QAM RF: 0 psyllium husk [Metamucil] 0.4 gram Capsule 0 g PO UD RF: 0 celecoxib [Celebrex] 200 mg capsule 200 mg PO QAM RF: 0 simvastatin 20 mg tablet 20 mg PO HS RF: 0 Discontinued calcium carbonate [Calcium 600] 600 mg calcium (1,500 mg) tablet 600 mg PO QAM RF: 0 glimepiride 2 mg tablet 4 mg PO DAILY Qty: 180 RF: 0 multivitamin [Daily Multi-Vitamin] tablet 1 tab PO DAILY RF: 0 tolterodine 4 mg capsule,extended release 24hr 4 mg PO DAILY Qty: 90 RF: 0 tramadol 50 mg tablet 50 mg PO QAM RF: 0 Discharge Orders: Discharge Order (Routine); Ordered 06/22/19 Ordered By: Aggie Felix Admission Data Admit Date/Time: 06/15/19 17:51 Attending Provider: Aggie Felix Admit Provider: Keith Roberts Primary Care Provider: Aniket Drake Other Providers: Jan Royal Happy ; Fabian Benavides ; Keith Roberts ; Roberto John ; Christiano Mendez ; Mohamud Dougherty ; Nika Kovacs
== END 2019-06-22 17:43 | DRG 853 ==
LOC: ED 09:31 → ASU 13:43 → 1E 17:51 → SUATTDRO 17:51 → 2N 06-16 12:24

== ENCOUNTER 2021-06-06 10:13 | Inpatient (IN) ==
[2021-06-06] MEDS ORDERED: SODIUM CHLORIDE 0.9% 1000ML 500 ML IV ONE (10:46)
[2021-06-06 10:54] LABS: Basophils # (auto) 0.02 K/uL (0-0.2); Basophils % (auto) 0.1 %; Eosinophils # (auto) 0.06 K/uL (0-0.5); Eosinophils % (auto) 0.3 %; Hematocrit (blood only) 40.8 % (37-47); Hemoglobin 13.6 g/dL (12.0-16.0); Immature Granulocytes # (auto) 0.07 K/uL (0.00-0.02); Immature Granulocytes % (auto) 0.3 %; Lymphocytes # (auto) 2.38 K/uL (1.2-3.4); Lymphocytes % (auto) 10.8 %; Mean Corpuscular Hemoglobin 32.8 pg (25-34); Mean Corpuscular Hgb Conc 33.3 g/dL (32-36); Mean Corpuscular Volume 98.3 fL (80-100); Monocytes # (auto) 1.83 K/uL (0.11-0.59); Monocytes % (auto) 8.3 %; Neutrophils # (auto) 17.64 K/uL (1.4-6.5); Neutrophils % (auto) 80.2 %; Platelet Count 186 K/uL (130-400); RDW Coefficient of Variation 13.2 % (11.5-14.5); RDW Standard Deviation 47.4 fL (36.4-46.3); Red Blood Count 4.15 M/uL (4.2-5.4)
[2021-06-06 11:03] LABS: BUN Creatinine Ratio 30.6 (10-20); Calcium 9.2 mg/dl (8.5-10.1); Est GFR (African American) 62.5 ml/min; Est GFR (Non-African American) 53.9 ml/min; Potassium 3.6 mmol/L (3.5-5.1)
--- NOTE | 2021-06-06 11:48 | Emergency Department Note ---
History of Present Illness General Chief complaint: Illness Time Seen by Provider: 06/06/21 10:17 History of Present Illness 86-year-old female presents to the ED with a chief complaint of generalized not feeling well. She does report some abdominal discomfort. The patient's son visited today and found her to be a little more confused than normal. She does have a history of frequent UTIs. Denies any falls. No chest pains or shortness of breath. No nausea or vomiting. She has some generalized weakness. She resides at a local assisted care living facility. She does have a history of dementia. Home Medications Medication Instructions Recorded Confirmed Type incontinence pad, liner, disp #168 ea 08/11/19 02/14/21 Rx (Overnight Pad For Women) pen needle, diabetic, safety 30 #100 ea 06/28/20 02/14/21 Rx gauge x 1/3" (Novofine Autocover) lancets 30 gauge (ReadyLance #200 ea 09/27/20 02/14/21 Rx Safety Lancets) nystatin 100,000 unit/gram topical 1 applic TOP BID PRN #60 gm 09/27/20 06/06/21 Rx powder celecoxib 200 mg capsule (Celebrex) 400 mg PO QAM #180 cap 10/24/20 06/06/21 Rx blood sugar diagnostic (OneTouch #200 ea 11/14/20 02/14/21 Rx Ultra Blue Test Strip) pen needle,diabetic dual safty 30 #200 ea 11/14/20 02/14/21 Rx gauge x 3/16" (BD AutoShield Duo Pen Needle) methyl salicylate 15 %-menthol 10 1 applic TOPICAL Q2H PRN 11/27/20 06/06/21 History % topical cream (Bengay Greaseless) diclofenac sodium 1 % topical gel 4 g TOPICAL DAILY PRN 05/05/21 06/06/21 History insulin glargine 100 unit/mL (3 10 unit SC Q12H 05/05/21 06/06/21 History mL) subcutaneous pen (Lantus Solostar U-100 Insulin) prednisone 20 mg tablet 20 mg PO QAM 05/05/21 06/06/21 History tramadol 50 mg tablet 50 mg PO TID #90 tab 05/13/21 06/06/21 Rx acetaminophen 325 mg tablet 325 mg PO TID #90 tab MDD 3 05/29/21 06/06/21 Rx GRAMS/24 HOURS carvedilol 3.125 mg tablet (Coreg) 3.125 mg PO BID17 #60 tab 05/29/21 06/06/21 Rx cholecalciferol (vitamin D3) 50 2,000 unit PO QAM #30 cap 05/29/21 06/06/21 Rx mcg (2,000 unit) capsule donepezil 10 mg tablet (Aricept) 10 mg PO HS #90 tab 05/29/21 06/06/21 Rx lisinopril 20 mg tablet 20 mg PO QAM #90 tab 05/29/21 06/06/21 Rx simvastatin 20 mg tablet 20 mg PO HS #90 tab 05/29/21 06/06/21 Rx Allergies Allergy/AdvReac Type Severity Reaction Status Date / Time adhesive Allergy Intermediate SKIN Verified 06/06/21 11:43 BLISTERS tetanus toxoid, adsorbed Allergy Mild EDEMA AT Verified 06/06/21 11:43 SITE codeine AdvReac Intermediate HEART Verified 06/06/21 11:43 PALPITATIONS, RECIEVED MORPHINE IV IN 2004 ADMIT Past Med/Surg History Medical History Acute shoulder pain Atrial fibrillation Developed intraoperatively on 06/15/2019. 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 Cognitive impairment Complicated UTI (urinary tract infection) Depression Diabetes Encounter for pre-operative examination Gait instability Gastroesophageal reflux History of respiratory failure Hx of fall Hx pulmonary embolism Hx: UTI (urinary tract infection) Hyperlipidemia Knee pain Lumbago Lumbar facet joint syndrome Paroxysmal atrial fibrillation Spinal stenosis, lumbar region without neurogenic claudication Type 2 diabetes mellitus Vitamin D deficiency Weakness Surgical History H/O cystoscopy cyst with L stent: 06/15/2019 at [facility]. MAC. Patient given insulin for hyperglycemia and metoprolol and cardizem intraop H/O: hysterectomy History of appendectomy History of knee replacement procedure of left knee History of knee replacement procedure of right knee History of open reduction and internal fixation (ORIF) procedure L HUMEROUS Hx of cholecystectomy Hx of excision of epidermal inclusion cyst Hx of tonsillectomy Presence urogenital implant Family History Sister Diabetes Stroke Brother Diabetes Prostate cancer Father Lung disease Social History Smoking Status: Never smoker Second Hand Exposure: No; Hx Alcohol Use: No Hx Substance Use: No Preferred Language: Estonian Communication Ability: Effective Visual Impairment: Limited Hearing Ability: Hard of Hearing Mud Cleaner Operator Required: No Beliefs That Will Affect Care: None Current Living Situation: Personal Care Facility Current Living Situation Comment: [facility], assisted living current occupational status: retired Feels Safe at Home: Yes caffeine: No Seatbelt Use: always Assistive Devices: Walker Review of Systems A total of 10 systems reviewed and were otherwise negative Physical Exam Vital Signs Vital Signs - 24 hr 06/06/21 10:30 06/06/21 10:40 06/06/21 10:42 Temperature 36.8 C Temperature Source Oral Pulse Rate 97 H 95 H 100 H Pulse Rate from SpO2 Sensor 98 H 96 H Respiratory Rate 19 16 18 Blood Pressure 87/57 L 100/43 L Blood Pressure Mean 67 62 Pulse Oximetry 92 91 93 Oxygen Delivery Method Room Air Sepsis Recent Fever Within 48 Hours No Sepsis New/Unexplained Change in Mental Status N/A Sepsis Action Taken by Nursing No Action Required 06/06/21 10:50 06/06/21 11:00 06/06/21 11:10 Temperature Temperature Source Pulse Rate 89 87 86 Pulse Rate from SpO2 Sensor 89 87 86 Respiratory Rate 21 20 20 Blood Pressure Blood Pressure Mean Pulse Oximetry 92 92 92 Oxygen Delivery Method Sepsis Recent Fever Within 48 Hours Sepsis New/Unexplained Change in Mental Status Sepsis Action Taken by Nursing 06/06/21 11:20 06/06/21 11:30 06/06/21 11:40 Temperature Temperature Source Pulse Rate 88 87 83 Pulse Rate from SpO2 Sensor 90 83 89 Respiratory Rate 16 17 21 Blood Pressure Blood Pressure Mean Pulse Oximetry 93 93 91 Oxygen Delivery Method Sepsis Recent Fever Within 48 Hours Sepsis New/Unexplained Change in Mental Status Sepsis Action Taken by Nursing 06/06/21 11:50 06/06/21 12:00 Temperature Temperature Source Pulse Rate 83 85 Pulse Rate from SpO2 Sensor 83 84 Respiratory Rate 18 20 Blood Pressure Blood Pressure Mean Pulse Oximetry 95 91 Oxygen Delivery Method Sepsis Recent Fever Within 48 Hours Sepsis New/Unexplained Change in Mental Status Sepsis Action Taken by Nursing CONSTITUTIONAL/VITAL SIGNS: Reviewed / noted above. GENERAL: Non-toxic in appearance. INTEGUMENTARY: Warm, dry, and [place]. HEAD: Normocephalic. EYES: without scleral icterus or trauma. ENT/OROPHARYNX: clear and moist. LYMPHADENOPATHY/NECK: Is supple without lymphadenopathy or meningismus. RESPIRATORY: Clear to auscultation bilaterally. No increased work of breathing. CARDIOVASCULAR: Regular rate and rhythm. GI/ABDOMEN: Soft and mildly tender diffusely. No organomegaly or pulsatile mass. EXTREMITIES: Warm and well perfused. BACK: No CVA tenderness. NEUROLOGICAL: Intact without focal deficits. PSYCHIATRIC: normal affect. MUSCULOSKELETAL: Normally developed with good muscle tone. TRIAGE NURSING DOCUMENTATION REVIEWED. Course Administered Medications Discontinued Medications Sodium Chloride (Nss 1000ml) 500 mls @ 999 mls/hr IV .Q31M ONE Stop: 06/06/21 11:16 Last Infusion: 06/06/21 11:56 Dose: 0 mls/hr Documented by: [id number] Admin: 06/06/21 11:04 Dose: 999 mls/hr Documented by: [id number] Ioversol (Optiray 320 100ml) 90 ml IV ONCE ONE Stop: 06/06/21 12:21 Last Admin: 06/06/21 12:10 Dose: 90 ml Documented by: [id number] Medical Decision Making Differential Diagnosis Differential considered: pancreatitis, hepatitis, acute cholecystitis, AAA, UTI, pyelonephritis, kidney stones, appendicitis, diverticulitis, shingles, bowel obstruction, mesenteric ischemia, intussusception,hernia, Medical Records Attestation: I reviewed the patient's medical records. Home Medications Current Medication List: was personally reviewed by me Laboratory Data Attestation: I reviewed the patient's lab results. Result diagrams: 06/06/21 10:25 06/06/21 10:25 Lab Results 06/06/21 06/06/21 06/06/21 Range/Units 10:25 10:25 11:50 WBC 22.00 H (4.8-10.8) K/uL RBC 4.15 L (4.2-5.4) M/uL Hgb 13.6 (12.0-16.0) g/dL Hct 40.8 (37-47) % MCV 98.3 (80-100) fL MCH 32.8 (25-34) pg MCHC 33.3 (32-36) g/dL RDW Std Deviation 47.4 H (36.4-46.3) fL RDW Coeff of Junie 13.2 (11.5-14.5) % Plt Count 186 (130-400) K/uL MPV 10.0 (7.4-10.4) fL Immature Gran % (Auto) 0.3 % Neut % (Auto) 80.2 % Lymph % (Auto) 10.8 % Worth % (Auto) 8.3 % Eos % (Auto) 0.3 % Baso % (Auto) 0.1 % Neut # (Auto) 17.64 H (1.4-6.5) K/uL Lymph # (Auto) 2.38 (1.2-3.4) K/uL Worth # (Auto) 1.83 H (0.11-0.59) K/uL Eos # (Auto) 0.06 (0-0.5) K/uL Baso # (Auto) 0.02 (0-0.2) K/uL Immature Gran # (Auto) 0.07 H (0.00-0.02) K/uL Sodium 139 (136-145) mmol/L Potassium 3.6 (3.5-5.1) mmol/L Chloride 104 (98-107) mmol/L Carbon Dioxide 27 (21-32) mmol/L Anion Gap 8.0 (3-11) BUN 29 H (7-18) mg/dl Creatinine 0.96 (0.6-1.2) mg/dl Est Cr Clr Drug Dosing 42.0 ml/min Est GFR ( Amer) 62.5 ml/min Est GFR (Non-Af Amer) 53.9 ml/min BUN/Creatinine Ratio 30.6 H (10-20) Glucose 113 H (70-99) mg/dl Calcium 9.2 (8.5-10.1) mg/dl Urine Color Center Urine Appearance Turbid A (Clear) Urine pH 6.0 (4.5-7.5) Ur Specific [place] 1.019 (1.000-1.030) Urine Protein 2+ H (Negative) Urine Glucose (UA) Negative (Negative) Urine Ketones Trace H (Negative) Urine Blood 3+ H (Negative) Urine Nitrite Positive A (Negative) Urine Bilirubin Negative (Negative) Urine Urobilinogen Negative (Negative) Ur Leukocyte Esterase 3+ H (Negative) Urine WBC (Auto) >30 H (0-5) /hpf Urine RBC (Auto) >30 H (0-4) /hpf U Hyaline Cast (Auto) 10-30 H (0-5) /lpf U Epithel Cells (Auto) >30 H (0-5) /lpf Urine Bacteria (Auto) 2+ H (Negative) Urine Yeast Not Reportable SARS-CoV-2, RNA, NAAT (NEGATIVE) 06/06/21 Range/Units 12:01 WBC (4.8-10.8) K/uL RBC (4.2-5.4) M/uL Hgb (12.0-16.0) g/dL Hct (37-47) % MCV (80-100) fL MCH (25-34) pg MCHC (32-36) g/dL RDW Std Deviation (36.4-46.3) fL RDW Coeff of Junie (11.5-14.5) % Plt Count (130-400) K/uL MPV (7.4-10.4) fL Immature Gran % (Auto) % Neut % (Auto) % Lymph % (Auto) % Worth % (Auto) % Eos % (Auto) % Baso % (Auto) % Neut # (Auto) (1.4-6.5) K/uL Lymph # (Auto) (1.2-3.4) K/uL Worth # (Auto) (0.11-0.59) K/uL Eos # (Auto) (0-0.5) K/uL Baso # (Auto) (0-0.2) K/uL Immature Gran # (Auto) (0.00-0.02) K/uL Sodium (136-145) mmol/L Potassium (3.5-5.1) mmol/L Chloride (98-107) mmol/L Carbon Dioxide (21-32) mmol/L Anion Gap (3-11) BUN (7-18) mg/dl Creatinine (0.6-1.2) mg/dl Est Cr Clr Drug Dosing ml/min Est GFR ( Amer) ml/min Est GFR (Non-Af Amer) ml/min BUN/Creatinine Ratio (10-20) Glucose (70-99) mg/dl Calcium (8.5-10.1) mg/dl Urine Color Urine Appearance (Clear) Urine pH (4.5-7.5) Ur Specific [place] (1.000-1.030) Urine Protein (Negative) Urine Glucose (UA) (Negative) Urine Ketones (Negative) Urine Blood (Negative) Urine Nitrite (Negative) Urine Bilirubin (Negative) Urine Urobilinogen (Negative) Ur Leukocyte Esterase (Negative) Urine WBC (Auto) (0-5) /hpf Urine RBC (Auto) (0-4) /hpf U Hyaline Cast (Auto) (0-5) /lpf U Epithel Cells (Auto) (0-5) /lpf Urine Bacteria (Auto) (Negative) Urine Yeast SARS-CoV-2, RNA, NAAT NEGATIVE (NEGATIVE) Imaging Data Radiologist's Impression: Abdomen/Pelvis CT 06/06/21 11:44 CT SCAN OF THE ABDOMEN AND PELVIS WITH IV CONTRAST CLINICAL HISTORY: Generalized abdominal pain. Nausea. COMPARISON STUDY: Abdominal CT dated 06/15/2019. TECHNIQUE: Following the IV administration of 90 cc of Optiray 320, CT scan of the abdomen and pelvis is performed from the lung bases to the proximal femora. Images are reviewed in the axial, sagittal, and coronal planes. IV contrast was administered without complication. A dose lowering technique was utilized adhering to the principles of ALARA. The examination is compromised by motion artifact. CT DOSE: 884.93 mGy.cm FINDINGS: Lung bases: The heart is mildly enlarged and without pericardial effusion. The coronary arteries are densely calcified. There is a small hiatal hernia. An 8 mm pleural-based nodule on image #19 is unchanged from 2019. The lung bases are otherwise clear noting bibasilar scarring/atelectasis. Liver: The contrast-enhanced liver is normal in size, contour, and attenuation. There is moderate intrahepatic biliary ductal dilatation. The hepatic veins and portal veins are patent. Gallbladder: Surgically absent noting clips in the gallbladder fossa. The common bile duct is dilated measuring up to 1.6 cm in diameter. Spleen: Normal in size and attenuation. Pancreas: The pancreas is moderately atrophic and grossly unremarkable. Adrenal glands: Unremarkable. Kidneys: The contrast enhanced kidneys demonstrate cortical atrophy and are without hydronephrosis. The kidneys enhance symmetrically. Bilateral renal cysts measure up to 5.8 cm. Additional subcentimeter cortical hypodensities also likely represent cysts but are too small for definitive characterization. An 8 mm nonobstructing calculus is noted in the left lower pole. Abdominal vasculature: The abdominal aorta is normal in course and caliber noting mild atherosclerotic calcification. Bowel: A small gastric diverticulum is seen in the fundal region on image #94. There is rectosigmoid fecal retention and moderate constipation. No bowel obstruction is identified. The appendix is nonvisualized. Peritoneum: There is no intraperitoneal free air or abdominal ascites. There is a small fat-containing umbilical hernia. Lymphadenopathy: None. Pelvic viscera: The bladder is decompressed. The bladder wall appears thickened and hyperemic and there is pericystic inflammation. The uterus is surgically absent. No adnexal lesion is seen. Phleboliths are noted along the right gonadal vein. Skeletal structures: The skeletal structures are osteopenic. There is moderate lumbosacral spondylosis. No lytic or blastic lesions are seen. IMPRESSION: 1. Findings suggest cystitis. Correlate with clinical findings and urinalysis. 2. Left-sided nephrolithiasis. 3. There is moderate intra and extrahepatic biliary ductal dilatation. This is nonspecific given the history of previous cholecystectomy but has increased as compared to 2019. Correlate with clinical findings and liver function studies. 4. Cardiomegaly. 5. There is rectosigmoid fecal retention and moderate constipation. 6. Additional findings as above. ACT 112: Negative or not required by law. Electronically signed by: Chandan Scott M.D. 06/06/2021 12:47 PM MDM Narrative Patient presents with some mild confusion and abdominal discomfort as detailed above. Her vital signs are stable. Denies any chest pains or shortness of breath. The white blood cell count is 22,000. The BUN is 29. Chemistry panel was otherwise unremarkable. She does not have any significant anemia. The patient's urinalysis suggest infection and a CT scan of the pelvis shows cystitis. There is also constipation. The patient was treated with IV fluids a nd IV Rocephin. She was told the results of the test. She is felt to be stable for discharge and outpatient follow-up. Previous urine cultures were pansensitive. Prescription for Cipro given. Impression & Plan Cystitis Discharge Plan Visit Data Chief Complaint: Illness ED Provider: Edin Yates Discharge Problem: Cystitis Patient Disposition: Home - Self-Care Discharge Instructions Danielle/Other Patient Handouts: Urinary Tract Infections in Women Activity Restrictions/Additional Instructions: Cipro as prescribed. Follow-up with your doctor for further care and evaluation in 1-2 days if symptoms persist. Return to the emergency department for worsening or new symptoms or any concerns. You have been examined and treated today on an emergency basis only. This is not a substitute for, or an effort to provide, complete comprehensive medical care. It is impossible to recognize and treat all injuries or illnesses in a single emergency department visit. It is therefore important that you follow up closely with your doctor. Call as soon as possible for an appointment. Forms Stand Alone Forms: [facility], [facility] Emergency Department, Important Visit Information Prescriptions Prescriptions: No Action (DME) Overnight Pad For Women Pad See Rx Instructions .ROUTE .MEDSUPPLY Qty: 168 RF: 3 (DME) Novofine Autocover 30 gauge x 1/3" needle See Rx Instructions .ROUTE .MEDSUPPLY Qty: 100 RF: 3 (DME) lancets [ReadyLance Safety Lancets] 30 gauge misc See Rx Instructions .ROUTE .MEDSUPPLY Qty: 200 RF: 3 nystatin 100,000 unit/gram powder 1 applic TOP BID PRN (Reason: rash) Qty: 60 RF: 0 celecoxib [Celebrex] 200 mg capsule 400 mg PO QAM Qty: 180 RF: 3 (DME) OneTouch Ultra Blue Test Strip Strip See Rx Instructions .ROUTE .MEDSUPPLY Qty: 200 RF: 3 (DME) BD AutoShield Duo Pen Needle 30 gauge x 3/16" needle See Rx Instructions .ROUTE .MEDSUPPLY Qty: 200 RF: 3 tramadol 50 mg tablet 50 mg PO TID Qty: 90 RF: 1 carvedilol [Coreg] 3.125 mg tablet 3.125 mg PO BID17 Qty: 60 RF: 5 donepezil [Aricept] 10 mg tablet 10 mg PO HS Qty: 90 RF: 3 cholecalciferol (vitamin D3) 50 mcg (2,000 unit) capsule 2,000 unit PO QAM Qty: 30 RF: 6 simvastatin 20 mg tablet 20 mg PO HS Qty: 90 RF: 3 lisinopril 20 mg tablet 20 mg PO QAM Qty: 90 RF: 3 acetaminophen 325 mg tablet 325 mg PO TID MDD 3 GRAMS/24 HOURS Qty: 90 RF: 3 Bengay Greaseless 15-10 % Cream 1 applic TOPICAL Q2H PRN (Reason: R BICEP PAIN) RF: 0 prednisone 20 mg tablet 20 mg PO QAM RF: 0 diclofenac sodium [Voltaren] 1 % Gel 4 g TOPICAL DAILY PRN (Reason: PAIN R KNEE) RF: 0 Lantus Solostar U-100 Insulin 100 unit/mL (3 mL) insulin pen 10 unit SC Q12H RF: 0 Referrals Referrals: Aniket Drake MD [Primary Care Provider] -
[2021-06-06 12:04] LABS: Appearance Urine Turbid (Clear); Bacteria Urine Automated 2+ (Negative); Bilirubin Urine Negative (Negative); Blood Urine 3+ (Negative); Color Urine Orange; Epithelial Cell Urine Auto >30 /lpf (0-5); Glucose Urine UA Negative (Negative); Ketones Urine Trace (Negative); Leukocyte Esterase Urine 3+ (Negative); Nitrite Urine Positive (Negative); Protein Urine 2+ (Negative); Specific Gravity Urine 1.019 (1.000-1.030); Urobilinogen Urine Negative (Negative); WBC Urine Automated >30 /hpf (0-5)
[2021-06-06 12:16] LABS: RBC Urine Automated >30 /hpf (0-4)
[2021-06-06] MEDS ORDERED: OPTIRAY 320 100ml IV ONE (12:20)
--- NOTE | 2021-06-06 12:48 | CT Scan Report ---
CT SCAN OF THE ABDOMEN AND PELVIS WITH IV CONTRAST CLINICAL HISTORY: Generalized abdominal pain. Nausea. COMPARISON STUDY: Abdominal CT dated 06/15/2019. TECHNIQUE: Following the IV administration of 90 cc of Optiray 320, CT scan of the abdomen and pelvi s is performed from the lung bases to the proximal femora. Images are reviewed in the axial, sagittal , and coronal planes. IV contrast was administered without complication. A dose lowering technique wa s utilized adhering to the principles of ALARA. The examination is compromised by motion artifact. CT DOSE: 884.93 mGy.cm FINDINGS: Lung bases: The heart is mildly enlarged and without pericardial effusion. The coronary arteries are densely calcified. There is a small hiatal hernia. An 8 mm pleural-based nodule on image #19 is uncha nged from 2019. The lung bases are otherwise clear noting bibasilar scarring/atelectasis. Liver: The contrast-enhanced liver is normal in size, contour, and attenuation. There is moderate int rahepatic biliary ductal dilatation. The hepatic veins and portal veins are patent. Gallbladder: Surgically absent noting clips in the gallbladder fossa. The common bile duct is dilated measuring up to 1.6 cm in diameter. Spleen: Normal in size and attenuation. Pancreas: The pancreas is moderately atrophic and grossly unremarkable. Adrenal glands: Unremarkable. Kidneys: The contrast enhanced kidneys demonstrate cortical atrophy and are without hydronephrosis. T he kidneys enhance symmetrically. Bilateral renal cysts measure up to 5.8 cm. Additional subcentimete r cortical hypodensities also likely represent cysts but are too small for definitive characterizatio n. An 8 mm nonobstructing calculus is noted in the left lower pole. Abdominal vasculature: The abdominal aorta is normal in course and caliber noting mild atheroscleroti c calcification. Bowel: A small gastric diverticulum is seen in the fundal region on image #94. There is rectosigmoid fecal retention and moderate constipation. No bowel obstruction is identified. The appendix is nonvi sualized. Peritoneum: There is no intraperitoneal free air or abdominal ascites. There is a small fat-containin g umbilical hernia. Lymphadenopathy: None. Pelvic viscera: The bladder is decompressed. The bladder wall appears thickened and hyperemic and the re is pericystic inflammation. The uterus is surgically absent. No adnexal lesion is seen. Phlebolith s are noted along the right gonadal vein. Skeletal structures: The skeletal structures are osteopenic. There is moderate lumbosacral spondylosi s. No lytic or blastic lesions are seen. IMPRESSION: 1. Findings suggest cystitis. Correlate with clinical findings and urinalysis. 2. Left-sided nephrolithiasis. 3. There is moderate intra and extrahepatic biliary ductal dilatation. This is nonspecific given the history of previous cholecystectomy but has increased as compared to 2019. Correlate with clinical fi ndings and liver function studies. 4. Cardiomegaly. 5. There is rectosigmoid fecal retention and moderate constipation. 6. Additional findings as above. ACT 112: Negative or not required by law. Electronically signed by: Chandan Scott M.D. 06/06/2021 12:47 PM
[2021-06-06] MEDS ORDERED: cefTRIAXone SODIUM 1,000 MG/50 ML BAG IV STA (13:08)
--- NOTE | 2021-06-06 19:37 | XRay Report ---
XR chest 1V portable HISTORY: hypoxia COMPARISON: Chest 05/05/2021. FINDINGS: No pneumothorax. No pleural effusions. No focal lung consolidations to suggest pneumonia. N o evidence for pulmonary edema. The heart remains mildly enlarged. Postoperative changes again noted within the IMPRESSION: Stable mild cardiomegaly. Otherwise, no acute process within the chest. ACT 112: Negative or not required by law. Electronically signed by: Arsalan Mike M.D. 06/06/2021 7:36 PM
[2021-06-06] MEDS ORDERED: HYDROCORTISONE SOD SUCCINATE 100 MG/2 ML VIAL IV SCH (20:00)
--- NOTE | 2021-06-06 20:11 | History & Physical Report ---
Date of Service June 06, 2021 Assessment & Plan (1) Cystitis: Plan: Cystitis/recurrent urinary tract infections- Back to November of this year: Proteus vulgaris, Klebsiella pneumoniae, and E. coli x3. All are pansensitive She received cefepime IV in the ED Placed on ceftriaxone 1 g IV daily Follow urine culture sensitivities NSS + KCl 20 mEq at 80 mils per hour x1 L (2) Polymyalgia rheumatica: Plan: Hold prednisone 20 mg daily Hydrocortisone 100 mg IV every 8 hours x2 days, then resume prednisone (3) Gastroesophageal reflux: (4) Paroxysmal atrial fibrillation: (5) Type 2 diabetes mellitus: Plan: Continue insulin glargine 10 units subcu every [address] on Accu-Cheks before meals and at bedtime NovoLog coverage per scale Check hemoglobin A1c (6) Hypertension: Plan: Hypertension/atrial fibrillation- Continue carvedilol, lisinopril. (7) Dementia: Plan: Continue donepezil History of Present Illness Chief Complaint: The patient was referred to the ED from a nursing facility due to abdominal discomfort, not feeling well in general, it was noted by her son who visited today to be more confused than usual Primary Care Provider: Aniket Drake MD The patient is an 86-year-old female with a past medical history including polymyalgia rheumatica, GERD, chronic SI joint pain, chronic knee pain, lumbar stenosis with neurogenic claudication, paroxysmal atrial fibrillation, diabetes mellitus type 2, kidney cyst, hyperlipidemia, ureterolithiasis, dementia, hypertension, cognitive impairment and vitamin D deficiency. Patient was referred from her nursing facility as noted above. Allergies Allergy/AdvReac Type Severity Reaction Status Date / Time adhesive Allergy Intermediate SKIN Verified 06/06/21 11:43 BLISTERS tetanus toxoid, adsorbed Allergy Mild EDEMA AT Verified 06/06/21 11:43 SITE codeine AdvReac Intermediate HEART Verified 06/06/21 11:43 PALPITATIONS, RECIEVED MORPHINE IV IN 2004 ADMIT Home Medications Medication Instructions Recorded Confirmed Type incontinence pad, liner, disp #168 ea 08/11/19 02/14/21 Rx (Overnight Pad For Women) pen needle, diabetic, safety 30 #100 ea 06/28/20 02/14/21 Rx gauge x 1/3" (Novofine Autocover) lancets 30 gauge (ReadyLance #200 ea 09/27/20 02/14/21 Rx Safety Lancets) nystatin 100,000 unit/gram topical 1 applic TOP BID PRN #60 gm 09/27/20 06/06/21 Rx powder celecoxib 200 mg capsule (Celebrex) 400 mg PO QAM #180 cap 10/24/20 06/06/21 Rx blood sugar diagnostic (OneTouch #200 ea 11/14/20 02/14/21 Rx Ultra Blue Test Strip) pen needle,diabetic dual safty 30 #200 ea 11/14/20 02/14/21 Rx gauge x 3/16" (BD AutoShield Duo Pen Needle) methyl salicylate 15 %-menthol 10 1 applic TOPICAL Q2H PRN 11/27/20 06/06/21 History % topical cream (Bengay Greaseless) diclofenac sodium 1 % topical gel 4 g TOPICAL DAILY PRN 05/05/21 06/06/21 History insulin glargine 100 unit/mL (3 10 unit SC Q12H 05/05/21 06/06/21 History mL) subcutaneous pen (Lantus Solostar U-100 Insulin) prednisone 20 mg tablet 20 mg PO QAM 05/05/21 06/06/21 History tramadol 50 mg tablet 50 mg PO TID #90 tab 05/13/21 06/06/21 Rx acetaminophen 325 mg tablet 325 mg PO TID #90 tab MDD 3 05/29/21 06/06/21 Rx GRAMS/24 HOURS carvedilol 3.125 mg tablet (Coreg) 3.125 mg PO BID17 #60 tab 05/29/21 06/06/21 Rx cholecalciferol (vitamin D3) 50 2,000 unit PO QAM #30 cap 05/29/21 06/06/21 Rx mcg (2,000 unit) capsule donepezil 10 mg tablet (Aricept) 10 mg PO HS #90 tab 05/29/21 06/06/21 Rx lisinopril 20 mg tablet 20 mg PO QAM #90 tab 05/29/21 06/06/21 Rx simvastatin 20 mg tablet 20 mg PO HS #90 tab 05/29/21 06/06/21 Rx Past Med/Surg History Medical History Acute shoulder pain Atrial fibrillation Developed intraoperatively on 06/15/2019. 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 Cognitive impairment Complicated UTI (urinary tract infection) Depression Diabetes Encounter for pre-operative examination Gait instability Gastroesophageal reflux History of respiratory failure Hx of fall Hx pulmonary embolism Hx: UTI (urinary tract infection) Hyperlipidemia Knee pain Lumbago Lumbar facet joint syndrome Paroxysmal atrial fibrillation Spinal stenosis, lumbar region without neurogenic claudication Type 2 diabetes mellitus Vitamin D deficiency Weakness Surgical History H/O cystoscopy cyst with L stent: 06/15/2019 at [facility]. MAC. Patient given insulin for hyperglycemia and metoprolol and cardizem intraop H/O: hysterectomy History of appendectomy History of knee replacement procedure of left knee History of knee replacement procedure of right knee History of open reduction and internal fixation (ORIF) procedure L HUMEROUS Hx of cholecystectomy Hx of excision of epidermal inclusion cyst Hx of tonsillectomy Presence urogenital implant Family History Sister Diabetes Stroke Brother Diabetes Prostate cancer Father Lung disease Social History Smoking Status: Unknown if ever smoked Second Hand Exposure: No; Hx Substance Use: No Preferred Language: Polish Communication Ability: Effective Visual Impairment: Limited Hearing Ability: Hard of Hearing [place] Required: No Beliefs That Will Affect Care: None Current Living Situation: Personal Care Facility Current Living Situation Comment: [facility], assisted living current occupational status: retired Feels Safe at Home: Yes caffeine: No Seatbelt Use: always Assistive Devices: Glasses and Oxygen - Continuous Review of Systems Review of Systems: The patient initially made good eye contact I walked in the room, and then her eyes were closed for the entire visit and did not communicate. Physical Exam Physical Exam: The patient has eyes closed and not responding,well developed and well nourished, normocephalic and atraumatic, lying in bed and in no acute distress. HEENT--PERRL, EOMI, mucous membranes and oropharynx normal. Neck--supple. No JVD. No bruits. Thyroid normal, trachea midline, no adenopathy. Heart--normal S1 and S2. No murmurs, rubs or gallops. Lungs--clear bilaterally, no respiratory distress, no accessory muscle use. Abdomen--normal bowel sounds and soft. Nontender. Nondistended, no hernias or masses, no organomegaly. Extremities--no cyanosis or clubbing. No edema. Dermatologic--normal skin turgor, normal color, no abnormal lymph nodes, no rash. Neurologic--cranial nerves II through XII grossly intact. Rheumatologic--limited exam Psychiatric--nonresponsive to questions Results & Data Results & Data ([facility]) Vital Signs (Past 12 Hours) Vital Signs Temp Pulse Pulse Resp BP BP Pulse Ox 06/06/21 19:05 96 06/06/21 19:00 38.2 C H 89 14 164/90 H 89 L 06/06/21 14:11 80 20 114/48 L 94 06/06/21 12:00 85 20 91 06/06/21 11:50 83 18 95 06/06/21 11:40 83 21 91 06/06/21 11:30 87 17 93 06/06/21 11:20 88 16 93 06/06/21 11:10 86 20 92 06/06/21 11:00 87 20 92 06/06/21 10:50 89 21 92 06/06/21 10:42 36.8 C 100 H 18 100/43 L 93 06/06/21 10:40 95 H 16 91 06/06/21 10:30 97 H 19 87/57 L 92 Laboratory Results Laboratory Results WBC 22.00 K/uL (4.8-10.8) H 06/06/21 10:25 RBC 4.15 M/uL (4.2-5.4) L 06/06/21 10:25 Hgb 13.6 g/dL (12.0-16.0) 06/06/21 10:25 Hct 40.8 % (37-47) 06/06/21 10:25 MCV 98.3 fL (80-100) 06/06/21 10:25 MCH 32.8 pg (25-34) 06/06/21 10:25 MCHC 33.3 g/dL (32-36) 06/06/21 10:25 RDW Std Deviation 47.4 fL (36.4-46.3) H 06/06/21 10:25 RDW Coeff of Junie 13.2 % (11.5-14.5) 06/06/21 10:25 Plt Count 186 K/uL (130-400) 06/06/21 10:25 MPV 10.0 fL (7.4-10.4) 06/06/21 10:25 Immature Gran % (Auto) 0.3 % 06/06/21 10:25 Neut % (Auto) 80.2 % 06/06/21 10:25 Lymph % (Auto) 10.8 % 06/06/21 10:25 [place] % (Auto) 8.3 % 06/06/21 10:25 Eos % (Auto) 0.3 % 06/06/21 10:25 Baso % (Auto) 0.1 % 06/06/21 10:25 Neut # (Auto) 17.64 K/uL (1.4-6.5) H 06/06/21 10:25 Lymph # (Auto) 2.38 K/uL (1.2-3.4) 06/06/21 10:25 [place] # (Auto) 1.83 K/uL (0.11-0.59) H 06/06/21 10:25 Eos # (Auto) 0.06 K/uL (0-0.5) 06/06/21 10:25 Baso # (Auto) 0.02 K/uL (0-0.2) 06/06/21 10:25 Immature Gran # (Auto) 0.07 K/uL (0.00-0.02) H 06/06/21 10:25 Sodium 139 mmol/L (136-145) 06/06/21 10:25 Potassium 3.6 mmol/L (3.5-5.1) 06/06/21 10:25 Chloride 104 mmol/L (98-107) 06/06/21 10:25 Carbon Dioxide 27 mmol/L (21-32) 06/06/21 10:25 Anion Gap 8.0 (3-11) 06/06/21 10:25 BUN 29 mg/dl (7-18) H 06/06/21 10:25 Creatinine 0.96 mg/dl (0.6-1.2) 06/06/21 10:25 Est Cr Clr Drug Dosing 42.0 ml/min 06/06/21 10:25 Est GFR ( Amer) 62.5 ml/min 06/06/21 10:25 Est GFR (Non-Af Amer) 53.9 ml/min 06/06/21 10:25 BUN/Creatinine Ratio 30.6 (10-20) H 06/06/21 10:25 Glucose 113 mg/dl (70-99) H 06/06/21 10:25 POC Glucose 190 mg/dl (70-99) H 06/07/21 00:01 Lactate 1.6 mmol/L (0.4-2.0) 06/06/21 19:21 Calcium 9.2 mg/dl (8.5-10.1) 06/06/21 10:25 Urine Color [place] 06/06/21 11:50 Urine Appearance Turbid (Clear) A 06/06/21 11:50 Urine pH 6.0 (4.5-7.5) 06/06/21 11:50 Ur Specific [place] 1.019 (1.000-1.030) 06/06/21 11:50 Urine Protein 2+ (Negative) H 06/06/21 11:50 Urine Glucose (UA) Negative (Negative) 06/06/21 11:50 Urine Ketones Trace (Negative) H 06/06/21 11:50 Urine Blood 3+ (Negative) H 06/06/21 11:50 Urine Nitrite Positive (Negative) A 06/06/21 11:50 Urine Bilirubin Negative (Negative) 06/06/21 11:50 Urine Urobilinogen Negative (Negative) 06/06/21 11:50 Ur Leukocyte Esterase 3+ (Negative) H 06/06/21 11:50 Urine WBC (Auto) >30 /hpf (0-5) H 06/06/21 11:50 Urine RBC (Auto) >30 /hpf (0-4) H 06/06/21 11:50 U Hyaline Cast (Auto) 10-30 /lpf (0-5) H 06/06/21 11:50 U Epithel Cells (Auto) >30 /lpf (0-5) H 06/06/21 11:50 Urine Bacteria (Auto) 2+ (Negative) H 06/06/21 11:50 Urine Yeast Not Reportable 06/06/21 11:50 SARS-CoV-2, RNA, NAAT NEGATIVE (NEGATIVE) 06/06/21 12:01 Impressions Abdomen/Pelvis CT 06/06/21 11:44 CT SCAN OF THE ABDOMEN AND PELVIS WITH IV CONTRAST CLINICAL HISTORY: Generalized abdominal pain. Nausea. COMPARISON STUDY: Abdominal CT dated 06/15/2019. TECHNIQUE: Following the IV administration of 90 cc of Optiray 320, CT scan of the abdomen and pelvis is performed from the lung bases to the proximal femora. Images are reviewed in the axial, sagittal, and coronal planes. IV contrast was administered without complication. A dose lowering technique was utilized a dhering to the principles of ALARA. The examination is compromised by motion artifact. CT DOSE: 884.93 mGy.cm FINDINGS: Lung bases: The heart is mildly enlarged and without pericardial effusion. The coronary arteries are densely calcified. There is a small hiatal hernia. An 8 mm pleural-based nodule on image #19 is unchanged from 2019. The lung bases are otherwise clear noting bibasilar scarring/atelectasis. Liver: The contrast-enhanced liver is normal in size, contour, and attenuation. There is moderate intrahepatic biliary ductal dilatation. The hepatic veins and portal veins are patent. Gallbladder: Surgically absent noting clips in the gallbladder fossa. The common bile duct is dilated measuring up to 1.6 cm in diameter. Spleen: Normal in size and attenuation. Pancreas: The pancreas is moderately atrophic and grossly unremarkable. Adrenal glands: Unremarkable. Kidneys: The contrast enhanced kidneys demonstrate cortical atrophy and are without hydronephrosis. The kidneys enhance symmetrically. Bilateral renal cysts measure up to 5.8 cm. Additional subcentimeter cortical hypodensities also likely represent cysts but are too small for definitive characterization. An 8 mm nonobstructing calculus is noted in the left lower pole. Abdominal vasculature: The abdominal aorta is normal in course and caliber noting mild atherosclerotic calcification. Bowel: A small gastric diverticulum is seen in the fundal region on image #94. There is rectosigmoid fecal retention and moderate constipation. No bowel obstruction is identified. The appendix is nonvisualized. Peritoneum: There is no intraperitoneal free air or abdominal ascites. There is a small fat-containing umbilical hernia. Lymphadenopathy: None. Pelvic viscera: The bladder is decompressed. The bladder wall appears thickened and hyperemic and there is pericystic inflammation. The uterus is surgically absent. No adnexal lesion is seen. Phleboliths are noted along the right gonadal vein. Skeletal structures: The skeletal structures are osteopenic. There is moderate lumbosacral spondylosis. No lytic or blastic lesions are seen. IMPRESSION: 1. Findings suggest cystitis. Correlate with clinical findings and urinalysis. 2. Left-sided nephrolithiasis. 3. There is moderate intra and extrahepatic biliary ductal dilatation. This is nonspecific given the history of previous cholecystectomy but has increased as compared to 2019. Correlate with clinical findings and liver function studies. 4. Cardiomegaly. 5. There is rectosigmoid fecal retention and moderate constipation. 6. Additional findings as above. ACT 112: Negative or not required by law. Electronically signed by: Chandan Scott M.D. 06/06/2021 12:47 PM Chest X-Ray 06/06/21 19:09 XR chest 1V portable HISTORY: hypoxia COMPARISON: Chest 05/05/2021. FINDINGS: No pneumothorax. No pleural effusions. No focal lung consolidations to suggest pneumonia. No evidence for pulmonary edema. The heart remains mildly enlarged. Postoperative changes again noted within the IMPRESSION: Stable mild cardiomegaly. Otherwise, no acute process within the chest. ACT 112: Negative or not required by law. Electronically signed by: Arsalan Mike M.D. 06/06/2021 7:36 PM Code Status & VTE Plan Code Status Full code VTE Prophylaxis Plan VTE Prophylaxis will be ordered: Yes PG Care Time/CCT Total # of Minutes Spent Total Time Spent with Patient: Total time spent is greater than 50% in coordination of care (as documented) at patient's floor/unit and/or counseling patient: Coding Level of Care Code 10307 Initial Inpt Care Lvl 3 Diagnoses Cystitis N30.90 Polymyalgia rheumatica M35.3 Gastroesophageal reflux K21.9 Paroxysmal atrial fibrillation I48.0 Type 2 diabetes mellitus E11.9 Hypertension I10 Hypertension type: unspecified Dementia F03.90 Dementia type: unspecified type Dementia behavioral disturbance: without behavioral disturbance (1) Hypertension Hypertension type: unspecified Qualified Code(s): I10 - Essential (primary) hypertension (2) Dementia Dementia type: unspecified type Dementia behavioral disturbance: without behavioral disturbance Qualified Code(s): F03.90 - Unspecified dementia without behavioral disturbance
--- NOTE | 2021-06-06 21:20 | Emergency Department Note ---
ED Visit Note I was asked to assist with disposition of this patient by the bedside RN. Patient was awaiting transport back to her nursing facility, diagnosed earlier today with urinary tract infection by my colleague, she was placed on antibiotics and given her first dose here in the ED, patient then became more lethargic, when they were attempting to get the patient ready for discharge at the bedside the patient was noted to be not responding appropriately, she was unable to ambulate, she did spike a fever here in the ED, upon review of her lab work shows a leukocytosis of 22,000, I did order blood cultures, she is already received a dose of IV ceftriaxone, her urine is infected. I suspect this is the source of her weakness and altered mentation. She does have an underlying history of dementia as well. Blood cultures were ordered, lactic acid is within normal limits, patient will be admitted to the hospitalist service for further care given her lethargy, urinary tract infection, and inability to ambulate. .
[2021-06-06] MEDS: HYDROCORTISONE SOD 100 MG in SYRINGE 0 ML IV SCH (22:03)
[2021-06-07] MEDS ORDERED: GLUCAGON FOR INJ 1 MG VIAL SQ PRN (00:18)
[2021-06-07] MEDS ORDERED: CARBOHYDRATES FOR HYPOGLYCEMIA PO PRN (00:18)
[2021-06-07] MEDS ORDERED: ONDANSETRON INJ 2 MG/ML 2 ML VIAL IV PRN (00:18)
[2021-06-07] MEDS ORDERED: GLUCOSE 40% GEL 15 GM TUBE PO PRN (00:18)
[2021-06-07] MEDS ORDERED: DEXTROSE 50% 50 ML SYRINGE IV PRN (00:18)
[2021-06-07] MEDS ORDERED: GLUCOSE 10 TABS/TUBE PO PRN (00:18)
[2021-06-07] MEDS ORDERED: ACETAMINOPHEN 325 MG TAB PO PRN (00:18)
[2021-06-07] MEDS ORDERED: NSS + 20MEQ KCL 20 MEQ/1,000 ML BAG IV SCH (00:45)
[2021-06-07] MEDS: traMADol HCL 50 MG TABLET PO SCH ×4 (01:11→21:05)
[2021-06-07] MEDS: DONEPEZIL HCL 10 MG TAB PO SCH ×2 (01:12→20:58)
[2021-06-07] MEDS: HEPARIN SOD 5,000 UNIT/0.5 ML VIAL SQ SCH ×3 (01:12→20:58)
[2021-06-07] MEDS: SIMVASTATIN 20 MG TAB PO SCH ×2 (01:12→20:58)
[2021-06-07] MEDS: ACETAMINOPHEN 325 MG TAB PO SCH ×4 (01:12→20:59)
[2021-06-07] MEDS: INSULIN GLARGINE SOLOSTAR 100 UNITS/ML 3 ML PEN SC SCH ×3 (01:13→20:59)
[2021-06-07] MEDS: INSULIN ASPART 100 UNITS/ML 3 ML PEN SC SCH ×5 (01:14→21:00)
[2021-06-07] MEDS: HYDROCORTISONE SOD 100 MG in SYRINGE 0 ML IV SCH ×3 (05:41→21:05)
[2021-06-07 06:41] LABS: Basophils # (auto) 0.01 K/uL (0-0.2); Basophils % (auto) 0.1 %; Eosinophils # (auto) 0.01 K/uL (0-0.5); Eosinophils % (auto) 0.1 %; Hematocrit (blood only) 42.2 % (37-47); Hemoglobin 13.9 g/dL (12.0-16.0); Immature Granulocytes # (auto) 0.03 K/uL (0.00-0.02); Immature Granulocytes % (auto) 0.2 %; Lymphocytes # (auto) 0.87 K/uL (1.2-3.4); Mean Corpuscular Hemoglobin 32.6 pg (25-34); Mean Corpuscular Hgb Conc 32.9 g/dL (32-36); Mean Corpuscular Volume 99.1 fL (80-100); Mean Platelet Volume 10.1 fL (7.4-10.4); Monocytes # (auto) 0.96 K/uL (0.11-0.59); Monocytes % (auto) 5.5 %; Neutrophils # (auto) 15.61 K/uL (1.4-6.5); Neutrophils % (auto) 89.1 %; Platelet Count 162 K/uL (130-400); RDW Coefficient of Variation 13.4 % (11.5-14.5); RDW Standard Deviation 48.4 fL (36.4-46.3); Red Blood Count 4.26 M/uL (4.2-5.4); White Blood Count 17.49 K/uL (4.8-10.8)
[2021-06-07 07:19] LABS: Albumin Globulin Ratio 0.7 (0.9-2); Albumin Level 2.4 gm/dl (3.4-5.0); BUN Creatinine Ratio 37.4 (10-20); Calcium 9.7 mg/dl (8.5-10.1); Creatinine Clr Calc Pharmacy 50.5 ml/min; Est GFR (African American) 81.6 ml/min; Est GFR (Non-African American) 70.4 ml/min; Globulin 3.4 gm/dl (2.5-4.0); Potassium 4.1 mmol/L (3.5-5.1); Total Protein 5.8 gm/dl (6.4-8.2)
[2021-06-07 07:26] LABS: Estimated Average Glucose 174 mg/dl; Hemoglobin A1C 7.7 % (4.5-5.6)
[2021-06-07] MEDS: carvediloL 3.125 MG TAB PO SCH ×2 (09:01→17:58)
[2021-06-07] MEDS: CeleBREX 200 MG CAP PO SCH (09:02)
[2021-06-07] MEDS: CHOLECALCIFEROL 1,000 UNITS 25 MCG TAB PO SCH (09:02)
[2021-06-07] MEDS: predniSONE 20 MG TAB PO SCH (09:03)
[2021-06-07] MEDS: lisinopril 20 MG TAB PO SCH (09:03)
[2021-06-07] MEDS: cefTRIAXone SODIUM 2,000 MG in DEXTROSE 5% 50 ML IV SCH (10:08)
--- NOTE | 2021-06-07 22:39 | Hospitalist Progress Note ---
Date of Service June 07, 2021 Assessment & Plan (1) Cystitis: Plan: Cystitis/recurrent urinary tract infections- Back to November of this year: Proteus vulgaris, Klebsiella pneumoniae, and E. coli x3. All are pansensitive She received cefepime IV in the ED Placed on ceftriaxone 1 g IV daily Follow urine culture sensitivities: pending continue above treatment. If continues to be afebrile, WBC continues to improve, may consider discharge back to [facility] on 06/08 (2) Polymyalgia rheumatica: Plan: Hold prednisone 20 mg daily Hydrocortisone 100 mg IV every 8 hours x2 days, then resume prednisone (3) Gastroesophageal reflux: (4) Paroxysmal atrial fibrillation: (5) Type 2 diabetes mellitus: Plan: Continue insulin glargine 10 units subcu every [address] Accu-Cheks before meals and at bedtime NovoLog coverage per scale Check hemoglobin A1c (6) Hypertension: Plan: Hypertension/atrial fibrillation- Continue carvedilol, lisinopril. (7) Dementia: Plan: Continue donepezil Admission and Anticipated Discharge Date Admission Date: June 06, 2021 Subjective Patient reports that she has memory problems. Vaguely remembers yesterday. Reports that her memory has been getting worse the past few months. She denies any hallucinations. She reports though that she does get recurrent UTIs. Updated her son on the phone. Review of Systems Review of Systems: All systems reviewed & are unremarkable except as noted in HPI & below Physical Exam Physical Exam: The patient is awake and able to have a conversation. Quite pleasant. Well developed and well nourished, normocephalic and atraumatic, lying in bed and in no acute distress. HEENT--PERRL, EOMI, mucous membranes and oropharynx normal. Neck--supple. No JVD. No bruits. Thyroid normal, trachea midline, no adenopathy. Heart--normal S1 and S2. No murmurs, rubs or gallops. Lungs--clear bilaterally, no respiratory distress, no accessory muscle use. Abdomen--normal bowel sounds and soft. Nontender. Nondistended, no hernias or masses, no organomegaly. Extremities--no cyanosis or clubbing. No edema. Dermatologic--normal skin turgor, normal color, no abnormal lymph nodes, no rash. Neurologic--cranial nerves II through XII grossly intact. Rheumatologic--limited exam Psychiatric--alert, oriented to person, cooperative, good eye contact, euthymic affect Results & Data Results & Data ([facility]) Vital Signs (Past 12 Hours) Vital Signs Temp Pulse Pulse Resp BP Pulse Ox 06/07/21 19:20 36.8 C 72 18 111/68 98 06/07/21 15:21 36.7 C 72 16 98/63 L 97 06/07/21 15:11 64 06/07/21 12:03 71 06/07/21 11:59 36.7 C 70 16 95/59 L 96 PG Care Time/CCT Total # of Minutes Spent Total Time Spent with Patient: Total time spent is greater than 50% in coordination of care (as documented) at patient's floor/unit and/or counseling patient: Coding Level of Care Code 21956 Subseq Hosp Care Lvl 2 Diagnoses Cystitis N30.90 Polymyalgia rheumatica M35.3 Gastroesophageal reflux K21.9 Paroxysmal atrial fibrillation I48.0 Type 2 diabetes mellitus E11.9 Hypertension I10 Hypertension type: unspecified Dementia F03.90 Dementia type: unspecified type Dementia behavioral disturbance: without behavioral disturbance (1) Hypertension Hypertension type: unspecified Qualified Code(s): I10 - Essential (primary) hypertension (2) Dementia Dementia type: unspecified type Dementia behavioral disturbance: without behavioral disturbance Qualified Code(s): F03.90 - Unspecified dementia without behavioral disturbance
[2021-06-08] MEDS: HYDROCORTISONE SOD 100 MG in SYRINGE 0 ML IV SCH (05:38)
[2021-06-08 07:39] LABS: Hematocrit (blood only) 39.3 % (37-47); Hemoglobin 12.7 g/dL (12.0-16.0); Immature Granulocytes # (auto) 0.03 K/uL (0.00-0.02); Immature Granulocytes % (auto) 0.2 %; Lymphocytes # (auto) 0.89 K/uL (1.2-3.4); Lymphocytes % (auto) 6.5 %; Mean Corpuscular Hemoglobin 32.2 pg (25-34); Mean Corpuscular Hgb Conc 32.3 g/dL (32-36); Mean Corpuscular Volume 99.7 fL (80-100); Mean Platelet Volume 10.2 fL (7.4-10.4); Monocytes # (auto) 0.68 K/uL (0.11-0.59); Neutrophils # (auto) 12.01 K/uL (1.4-6.5); Neutrophils % (auto) 88.3 %; Platelet Count 179 K/uL (130-400); RDW Coefficient of Variation 13.2 % (11.5-14.5); RDW Standard Deviation 48.4 fL (36.4-46.3); Red Blood Count 3.94 M/uL (4.2-5.4); White Blood Count 13.61 K/uL (4.8-10.8)
[2021-06-08 08:15] LABS: Albumin Level 2.2 gm/dl (3.4-5.0); BUN Creatinine Ratio 51.7 (10-20); Creatinine Clr Calc Pharmacy 46.7 ml/min; Est GFR (African American) 74.5 ml/min; Est GFR (Non-African American) 64.3 ml/min; Magnesium 2.2 mg/dl (1.8-2.4); Potassium 4.4 mmol/L (3.5-5.1)
[2021-06-08] MEDS: carvediloL 3.125 MG TAB PO SCH (08:17)
[2021-06-08] MEDS: ACETAMINOPHEN 325 MG TAB PO SCH ×2 (08:17→14:12)
[2021-06-08] MEDS: traMADol HCL 50 MG TABLET PO SCH ×2 (08:17→14:12)
[2021-06-08 08:18] LABS: Albumin Globulin Ratio 0.6 (0.9-2); Bilirubin,Total 0.7 mg/dl (0.2-1); Globulin 3.7 gm/dl (2.5-4.0); Total Protein 5.9 gm/dl (6.4-8.2)
[2021-06-08] MEDS: HEPARIN SOD 5,000 UNIT/0.5 ML VIAL SQ SCH (08:18)
[2021-06-08] MEDS: CHOLECALCIFEROL 1,000 UNITS 25 MCG TAB PO SCH (08:18)
[2021-06-08] MEDS: CeleBREX 200 MG CAP PO SCH (08:18)
[2021-06-08] MEDS: INSULIN GLARGINE SOLOSTAR 100 UNITS/ML 3 ML PEN SC SCH (08:19)
[2021-06-08] MEDS: lisinopril 20 MG TAB PO SCH (08:19)
[2021-06-08] MEDS: predniSONE 20 MG TAB PO SCH (08:20)
[2021-06-08] MEDS: INSULIN ASPART 100 UNITS/ML 3 ML PEN SC SCH ×2 (08:21→12:29)
[2021-06-08] MEDS: cefTRIAXone SODIUM 2,000 MG in DEXTROSE 5% 50 ML IV SCH (08:25)
[2021-06-08] MEDS ORDERED: bisacodyL 10 MG SUPP PR STA (11:02)
[2021-06-08] MEDS ORDERED: POLYETHYLENE (MIRALAX) 17 GM PACK PO SCH (11:15)
[2021-06-08 14:50] VITALS: PULSE 82; TEMP 98.4; O2SAT 93
--- NOTE | 2021-06-08 15:48 | Discharge Summary ---
Date of Service June 08, 2021 Admission HPI Per Admitting Provider The patient is an 86-year-old female with a past medical history including polymyalgia rheumatica, GERD, chronic SI joint pain, chronic knee pain, lumbar stenosis with neurogenic claudication, paroxysmal atrial fibrillation, diabetes mellitus type 2, kidney cyst, hyperlipidemia, ureterolithiasis, dementia, hypertension, cognitive impairment and vitamin D deficiency. Patient was referred from her nursing facility as noted above. Principal Diagnosis UTI, Acute metabolic encephalopathy Discharge Exam Constitutional WD/WN, vitals as above ENMT external ear and nose normal, oropharynx normal Neck trachea midline, no thyromegaly Respiratory normal respiratory effort, lungs clear to auscultation Cardiovascular RRR, no murmur, no edema Chest (Breasts) Chest: normal inspection of chest Gastrointestinal (Abdomen) normal bowel sounds, soft, nontender, no hepatosplenomegaly Musculoskeletal Extremities: extremities normal to inspection; no cyanosis and no clubbing Skin no rashes, warm and dry Neurologic moves all extremities and awake; no focal motor deficits Psychiatric Orientation: alert, oriented to person and cooperative; + not oriented to place and + not oriented to time Lymphatic no lymphedema Discharge Data Allergies Allergy/AdvReac Type Severity Reaction Status Date / Time adhesive Allergy Intermediate SKIN Verified 06/06/21 11:43 BLISTERS tetanus toxoid, adsorbed Allergy Mild EDEMA AT Verified 06/06/21 11:43 SITE codeine AdvReac Intermediate HEART Verified 06/06/21 11:43 PALPITATIONS, RECIEVED MORPHINE IV IN 2004 ADMIT Consultations 06/06/21 21:00 ED Decision to Admit Stat Ordered Studies 06/06/21 11:44 CT abd pelvis IV con only Stat Hospital Course (1) Cystitis: Cystitis/recurrent urinary tract infections Sepsisin setting of UTI e/b +3/4 SIRS criteria and SOFA score of 3 Back to November of this year:Ur cx with Proteus vulgaris, Klebsiella pneumoniae, and E. coli x3. All are pansensitive She received cefepime IV in the ED Placed on ceftriaxone 1 g IV daily Follow urine culture sensitivities: with Ur cx growing mixed organisms improved, mentation back to baseline, afebrile, WBC count improving dc to H on cefdinir (2) Metabolic encephalopathy: Metabolic encephalopathyin setting of UTI and Sepsis-resolved (3) Polymyalgia rheumatica: continue home prednisone 20 mg daily was given stress dose steroids with Hydrocortisone 100 mg IV every 8 hours x2 days (4) Paroxysmal atrial fibrillation: lone Afib post-op not on AC continue Coreg (5) Type 2 diabetes mellitus: received basal and bolus insulin A1C controlled at 7.7% (6) Hypertension: controlled Continue carvedilol, lisinopril. (7) Dementia: Continue donepezil Dispo-dc to [facility] Total Time Total Time Spent Total Time Spent (In Minutes): 35 min Discharge Plan Discharge Items Patient Disposition: Personal Half-Way Reason For Visit: UTI, ALTERED MENTATION Discharge Diagnosis: UTI, Acute metabolic encephalopathy Condition on Discharge: Fair Activity: Resume your previous activity Non-emergency contact: Primary Care Provider Call non-emergency contact if: you have any medication questions, your symptoms worsen and you have a fever Follow-up/Referrals: Aniket Drake MD [Primary Care Provider] - Diet: Carb Consistent or DM2 and Heart Healthy Addtl Attending Provider Instructions: Please finish out the course of cefdinir for your UTI for 5 more days. Pending Studies at Discharge: Yes (Final blood culture) Stand-Alone Forms: My [facility] Skilled Items Patient informed of condition?: Yes DNR: No Discharge Level of Care: Other Communicable Disease: No Discharge Prognosis: Improving Lines: None Urinary Catheter: No Medications and DC Order Prescriptions: Continued (DME) Overnight Pad For Women Pad See Rx Instructions .ROUTE .MEDSUPPLY Qty: 168 RF: 3 (DME) Novofine Autocover 30 gauge x 1/3" needle See Rx Instructions .ROUTE .MEDSUPPLY Qty: 100 RF: 3 (DME) lancets [ReadyLance Safety Lancets] 30 gauge misc See Rx Instructions .ROUTE .MEDSUPPLY Qty: 200 RF: 3 nystatin 100,000 unit/gram powder 1 applic TOP BID PRN (Reason: rash) Qty: 60 RF: 0 celecoxib [Celebrex] 200 mg capsule 400 mg PO QAM Qty: 180 RF: 3 (DME) OneTouch Ultra Blue Test Strip Strip See Rx Instructions .ROUTE .MEDSUPPLY Qty: 200 RF: 3 (DME) BD AutoShield Duo Pen Needle 30 gauge x 3/16" needle See Rx Instructions .ROUTE .MEDSUPPLY Qty: 200 RF: 3 tramadol 50 mg tablet 50 mg PO TID Qty: 90 RF: 1 carvedilol [Coreg] 3.125 mg tablet 3.125 mg PO BID17 Qty: 60 RF: 5 donepezil [Aricept] 10 mg tablet 10 mg PO HS Qty: 90 RF: 3 cholecalciferol (vitamin D3) 50 mcg (2,000 unit) capsule 2,000 unit PO QAM Qty: 30 RF: 6 simvastatin 20 mg tablet 20 mg PO HS Qty: 90 RF: 3 lisinopril 20 mg tablet 20 mg PO QAM Qty: 90 RF: 3 acetaminophen 325 mg tablet 325 mg PO TID MDD 3 GRAMS/24 HOURS Qty: 90 RF: 3 Bengay Greaseless 15-10 % Cream 1 applic TOPICAL Q2H PRN (Reason: R BICEP PAIN) RF: 0 prednisone 20 mg tablet 20 mg PO QAM RF: 0 diclofenac sodium 1 % Gel 4 g TOPICAL DAILY PRN (Reason: PAIN R KNEE) RF: 0 Lantus Solostar U-100 Insulin 100 unit/mL (3 mL) insulin pen 10 unit SC Q12H RF: 0 Discharge Orders: Discharge Order (Routine); Ordered 06/08/21 Ordered By: Aggie Santos/Other Patient Handouts: A1C, Managing Type 2 Diabetes Admission Data Admit Date/Time: 06/06/21 20:03 Attending Provider: Aggie Felix Admit Provider: Rashel Cordova Primary Care Provider: Aniket Drake Other Interventions: Discharge Summary Assessment (RN) Last Done: 06/08/21 15:48 Coding Level of Care Code D/C DAY MANAGEMENT >30 MINS Diagnoses Cystitis N30.90 Polymyalgia rheumatica M35.3 Paroxysmal atrial fibrillation I48.0 Type 2 diabetes mellitus E11.9 Hypertension I10 Hypertension type: unspecified Dementia F03.90 Dementia behavioral disturbance: without behavioral disturbance Dementia type: unspecified type Metabolic encephalopathy G93.41
[2021-06-08 15:49] VITALS: BP 156/77
== END 2021-06-08 16:19 | disposition home or self-care (01) | DRG 871 ==
LOC: ED 10:13 → 2N 20:03 → SUATTDRO 20:03 → 2N 23:22

== ENCOUNTER 2021-09-01 10:45 | Inpatient (IN) ==
[2021-09-01] MEDS ORDERED: SODIUM CHLORIDE 0.9% 1000ML 1,000 ML IV ONE (10:53)
--- NOTE | 2021-09-01 10:58 | Emergency Department Note ---
Impression & Plan Aspiration pneumonitis, AMS (altered mental status), Acute UTI ED Provider Note NAME: FARAZD OLIVEIRA AGE: 86 SEX: F : 1935 ARRIVES VIA: Ambulance INFORMANT: Patient, EMS ED PROVIDER(S): Good Vazquez DO CHIEF COMPLAINT: Nausea vomiting and diarrhea HPI: Patient is an 86-year-old female with a past medical history of polymyalgia rheumatica, encephalopathy, reflux, diabetes, A. fib, who presents the ER for nausea, vomiting, and diarrhea. Patient is uncertain how long this has been going on. Per EMS has been going on about 2 to 3 days. There is multiple people sick at the [facility] with the same symptoms. When they picked her up her systolic pressures were in the 60s. She admits to diffuse abdominal pain worse in the lower belly which has been present since this started. She admits to some mild dysuria. ROS: See above HPI for pertinent positives & negatives. A total of 10 systems reviewed and were otherwise negative. PAST MEDICAL HISTORY:See Below PAST SURGICAL HISTORY:See Below FAMILY HISTORY:See Below SOCIAL HISTORY:See Below HOME MEDICATIONS:See Below ALLERGIES:See Below VITALS:See Below PHYSICAL EXAMINATION: GENERAL: Sitting up in bed, alert, well appearing, well nourished, no distress, non-toxic EYE EXAM: normal conjunctiva. PERRL and EOM's grossly intact. OROPHARYNX: Dry mucous membranes NECK: supple, no nuchal rigidity, no adenopathy, non-tender LUNGS: Clear to auscultation. Normal chest wall mechanics HEART: no murmurs, S1 normal and S2 normal ABDOMEN: abdomen soft, mild tenderness in the right lower quadrant normo-active bowel sounds, no masses, no rebound or guarding. UPPER EXTREMITIES: upper extremities are grossly normal. LOWER EXTREMITIES: No pitting edema. NEURO EXAM: Normal sensorium, cranial nerves II-XII grossly intact, normal speech, no gross weakness of arms, no gross weakness of legs. MEDICAL DECISION MAKING: Patient is an 86-year-old female who presents the ER for abdominal pain and weakness. She was brought in by EMS with systolic pressures initially in the 60s. Was given a liter of fluid prior to arrival and then improved to 100. IV was established blood work was obtained. Labs show mild leukocytosis 11,000. Hemoglobin slightly up at 16 which I favor secondary to dehydration. BMP with glucose slightly up to 59. T bili mildly up at 1.2. LFTs were unremarkable. Lipase normal. UA was contaminated although she does have urinary symptoms. Patient was given [address] abdomen pelvis shows likely enteritis with infiltrates in the bilateral lower lobes. Covid is negative. She has no real chest pain or shortness of breath. Question if this is aspiration. She was already covered with cefepime. She dropped her pressures and I repeated the blood pressures at bedside number in the 70s to 80s. These did improve back to the low 100s. She was for a short period of time difficult to arouse as well with sternal rubs. Do favor this warrants observation. Triage Nursing notes reviewed. Limited review of prior medical records performed Vital Signs: reviewed and remarkable for hypotension Differential diagnosis: Infection, dehydration, metabolic abnormality, hypo/hyperglycemia, electrolyte disturbance, anemia, hypoxia, cardiac sources, intracerebral event, toxicologic, neurologic, as well as other pathologies. ER treatment provided: See below Diagnostics interpreted by me: Cardiac Monitoring: An order was placed for continuous cardiac monitoring. The monitor shows a rate of 80 with sinus rhythm. Laboratory studies: As stated above and show below. Imaging studies: CT abdomen pelvis shows bilateral pneumonia Consultation(s): Discussed the hospitalist for further evaluation Procedures: none Critical Care: None Past Med/Surg History Medical History Acute shoulder pain Atrial fibrillation Developed intraoperatively on 06/15/2019. 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 Cognitive impairment Complicated UTI (urinary tract infection) Depression Diabetes Encounter for pre-operative examination Gait instability Gastroesophageal reflux History of respiratory failure Hx of fall Hx pulmonary embolism Hx: UTI (urinary tract infection) Hydronephrosis with obstructing calculus Hyperlipidemia Knee pain Lumbago Lumbar facet joint syndrome Paroxysmal atrial fibrillation Spinal stenosis, lumbar region without neurogenic claudication Type 2 diabetes mellitus Vitamin D deficiency Weakness Surgical History H/O cystoscopy cyst with L stent: 06/15/2019 at [facility]. MAC. Patient given insulin for hyperglycemia and metoprolol and cardizem intraop H/O: hysterectomy History of appendectomy History of knee replacement procedure of left knee History of knee replacement procedure of right knee History of open reduction and internal fixation (ORIF) procedure L HUMEROUS Hx of cholecystectomy Hx of excision of epidermal inclusion cyst Hx of tonsillectomy Presence urogenital implant Family History Sister Diabetes Stroke Brother Diabetes Prostate cancer Father Lung disease Social History Smoking Status: Never smoker Second Hand Exposure: No; Hx Substance Use: No Preferred Language: Bel[place]an Communication Ability: Effective Visual Impairment: Limited Hearing Ability: Hard of Hearing Online Marketing Director Required: No Beliefs That Will Affect Care: None Current Living Situation: Personal Care Facility Current Living Situation Comment: [facility], assisted living current occupational status: retired Feels Safe at Home: Yes caffeine: No Seatbelt Use: always Assistive Devices: Glasses Allergies Allergies Allergy/AdvReac Type Severity Reaction Status Date / Time adhesive Allergy Intermediate SKIN Verified 09/01/21 12:42 BLISTERS tetanus toxoid, adsorbed Allergy Mild EDEMA AT Verified 09/01/21 12:42 SITE codeine AdvReac Intermediate HEART Verified 09/01/21 12:42 PALPITATIONS, RECIEVED MORPHINE IV IN 2004 ADMIT Home Meds Home Medications Medication Instructions Recorded Confirmed diclofenac sodium 1 % topical gel 4 g TOPICAL DAILY PRN 05/05/21 09/01/21 insulin glargine 100 unit/mL (3 0 unit SC Q12H 05/05/21 09/01/21 mL) subcutaneous pen (Lantus Solostar U-100 Insulin) acetaminophen 325 mg tablet 325 mg PO TID MDD 3 GRAMS/24 HOURS 09/01/21 09/01/21 methyl salicylate 15 %-menthol 10 1 applic TOPICAL QID 09/01/21 09/01/21 % topical cream Previous Rx's Medication Instructions Recorded incontinence pad, liner, disp #168 ea 08/11/19 (Overnight Pad For Women) pen needle, diabetic, safety 30 #100 ea 06/28/20 gauge x 1/3" (Novofine Autocover) nystatin 100,000 unit/gram topical 1 applic TOP BID PRN #60 gm 09/27/20 powder celecoxib 200 mg capsule (Celebrex) 400 mg PO QAM #180 cap 10/24/20 blood sugar diagnostic (OneTouch #200 ea 11/14/20 Ultra Blue Test Strip) pen needle,diabetic dual safty 30 #200 ea 11/14/20 gauge x 3/16" (BD AutoShield Duo Pen Needle) carvedilol 3.125 mg tablet (Coreg) 3.125 mg PO BID17 #60 tab 05/29/21 cholecalciferol (vitamin D3) 50 2,000 unit PO QAM #30 cap 05/29/21 mcg (2,000 unit) capsule donepezil 10 mg tablet (Aricept) 10 mg PO HS #90 tab 05/29/21 lisinopril 20 mg tablet 20 mg PO QAM #90 tab 05/29/21 simvastatin 20 mg tablet 20 mg PO HS #90 tab 05/29/21 prednisone 20 mg tablet 20 mg PO QAM #90 tab 07/10/21 lancets 30 gauge (ReadyLance #200 ea 07/11/21 Safety Lancets) tramadol 50 mg tablet 50 mg PO TID #90 tab 07/19/21 Results & Data (ED) Vital Signs Vital Signs - 24 hr 09/01/21 10:39 09/01/21 11:55 09/01/21 11:58 Temperature 37.0 C Temperature Source Oral Pulse Rate 86 81 Pulse Rhythm Regular Pulse Strength Normal Respiratory Rate 20 20 Respiratory Effort / Characteristics Non-Labored Blood Pressure 100/26 L 131/69 Blood Pressure Mean 50 89 Pulse Oximetry 96 96 95 Oxygen Delivery Method Room Air Room Air Room Air Sepsis Recent Fever Within 48 Hours No Sepsis New/Unexplained Change in Mental Status No Sepsis Action Taken by Nursing No Action Required 09/01/21 12:30 09/01/21 13:58 09/01/21 14:01 Temperature Temperature Source Pulse Rate 86 90 87 Pulse Rhythm Pulse Strength Respiratory Rate 18 16 16 Respiratory Effort / Characteristics Blood Pressure 148/71 H 132/74 138/65 Blood Pressure Mean 96 93 89 Pulse Oximetry 94 95 95 Oxygen Delivery Method Room Air Room Air Sepsis Recent Fever Within 48 Hours Sepsis New/Unexplained Change in Mental Status Sepsis Action Taken by Nursing Laboratory Data Result diagrams: 09/01/21 11:11 09/01/21 11:11 Lab Results 09/01/21 09/01/21 09/01/21 Range/Units 11:11 11:11 12:26 WBC 11.36 H (4.8-10.8) K/uL RBC 4.91 (4.2-5.4) M/uL Hgb 16.2 H (12.0-16.0) g/dL Hct 48.0 H (37-47) % MCV 97.8 (80-100) fL MCH 33.0 (25-34) pg MCHC 33.8 (32-36) g/dL RDW Std Deviation 47.9 H (36.4-46.3) fL RDW Coeff of Junie 13.6 (11.5-14.5) % Plt Count 206 (130-400) K/uL MPV 10.8 H (7.4-10.4) fL Immature Gran % (Auto) 0.4 % Neut % (Auto) 80.7 % Lymph % (Auto) 10.1 % Stark % (Auto) 8.0 % Eos % (Auto) 0.6 % Baso % (Auto) 0.2 % Neut # (Auto) 9.17 H (1.4-6.5) K/uL Lymph # (Auto) 1.15 L (1.2-3.4) K/uL Stark # (Auto) 0.91 H (0.11-0.59) K/uL Eos # (Auto) 0.07 (0-0.5) K/uL Baso # (Auto) 0.02 (0-0.2) K/uL Immature Gran # (Auto) 0.04 H (0.00-0.02) K/uL Sodium 139 (136-145) mmol/L Potassium 4.3 (3.5-5.1) mmol/L Chloride 104 (98-107) mmol/L Carbon Dioxide 25 (21-32) mmol/L Anion Gap 10 (3-11) BUN 47 H (6-23) mg/dl Creatinine 1.09 (0.6-1.2) mg/dl Est Cr Clr Drug Dosing Not Reportable Est GFR ( Amer) 53.6 ml/min Est GFR (Non-Af Amer) 46.3 ml/min BUN/Creatinine Ratio 43.1 H (10-20) Glucose 259 H (70-99(Fasting)) mg/dl Calcium 8.9 (8.5-10.1) mg/dl Total Bilirubin 1.2 H (0.2-1.0) mg/dl AST 12 L (13-39) U/L ALT 9 (7-52) U/L Alkaline Phosphatase 30 L (34-104) U/L Total Protein 5.7 L (6.0-8.3) gm/dl Albumin 3.5 (3.4-5.0) gm/dl Globulin 2.2 L (2.5-4.0) gm/dl Albumin/Globulin Ratio 1.6 (0.9-2) Lipase 16 (11-82) U/L Urine Color Dark Yellow Urine Appearance Cloudy A (Clear) Urine pH 5.0 (4.5-7.5) Ur Specific [place] 1.030 (1.000-1.030) Urine Protein Trace H (Negative) Urine Glucose (UA) 3+ H (Negative) Urine Ketones Trace H (Negative) Urine Blood 3+ H (Negative) Urine Nitrite Negative (Negative) Urine Bilirubin 1+ H (Negative) Urine Urobilinogen Negative (Negative) Ur Leukocyte Esterase Trace H (Negative) Urine WBC (Auto) 10-30 H (0-5) /hpf Urine RBC (Auto) 5-10 H (0-4) /hpf U Hyaline Cast (Auto) 10-30 H (0-5) /lpf U Epithel Cells (Auto) 10-20 H (0-5) /lpf Urine Bacteria (Auto) 4+ H (Negative) Granular Casts 1-5 H (0) /lpf Urine Yeast Not Reportable SARS-CoV-2, RNA, NAAT (NEGATIVE) 09/01/21 Range/Units 13:09 WBC (4.8-10.8) K/uL RBC (4.2-5.4) M/uL Hgb (12.0-16.0) g/dL Hct (37-47) % MCV (80-100) fL MCH (25-34) pg MCHC (32-36) g/dL RDW Std Deviation (36.4-46.3) fL RDW Coeff of Junie (11.5-14.5) % Plt Count (130-400) K/uL MPV (7.4-10.4) fL Immature Gran % (Auto) % Neut % (Auto) % Lymph % (Auto) % Stark % (Auto) % Eos % (Auto) % Baso % (Auto) % Neut # (Auto) (1.4-6.5) K/uL Lymph # (Auto) (1.2-3.4) K/uL Stark # (Auto) (0.11-0.59) K/uL Eos # (Auto) (0-0.5) K/uL Baso # (Auto) (0-0.2) K/uL Immature Gran # (Auto) (0.00-0.02) K/uL Sodium (136-145) mmol/L Potassium (3.5-5.1) mmol/L Chloride (98-107) mmol/L Carbon Dioxide (21-32) mmol/L Anion Gap (3-11) BUN (6-23) mg/dl Creatinine (0.6-1.2) mg/dl Est Cr Clr Drug Dosing Est GFR ( Amer) ml/min Est GFR (Non-Af Amer) ml/min BUN/Creatinine Ratio (10-20) Glucose (70-99(Fasting)) mg/dl Calcium (8.5-10.1) mg/dl Total Bilirubin (0.2-1.0) mg/dl AST (13-39) U/L ALT (7-52) U/L Alkaline Phosphatase (34-104) U/L Total Protein (6.0-8.3) gm/dl Albumin (3.4-5.0) gm/dl Globulin (2.5-4.0) gm/dl Albumin/Globulin Ratio (0.9-2) Lipase (11-82) U/L Urine Color Urine Appearance (Clear) Urine pH (4.5-7.5) Ur Specific [place] (1.000-1.030) Urine Protein (Negative) Urine Glucose (UA) (Negative) Urine Ketones (Negative) Urine Blood (Negative) Urine Nitrite (Negative) Urine Bilirubin (Negative) Urine Urobilinogen (Negative) Ur Leukocyte Esterase (Negative) Urine WBC (Auto) (0-5) /hpf Urine RBC (Auto) (0-4) /hpf U Hyaline Cast (Auto) (0-5) /lpf U Epithel Cells (Auto) (0-5) /lpf Urine Bacteria (Auto) (Negative) Granular Casts (0) /lpf Urine Yeast SARS-CoV-2, RNA, NAAT NEGATIVE (NEGATIVE) Administered Medications Discontinued Medications Sodium Chloride (Nss 1000ml) 1,000 mls @ 999 mls/hr IV .Q1H1M ONE Stop: 09/01/21 11:53 Last Infusion: 09/01/21 12:32 Dose: 0 mls/hr Documented by: [id number] Admin: 09/01/21 11:15 Dose: 999 mls/hr Documented by: [id number] Cefepime HCl (Maxipime) 2,000 mg in 20 mls @ 5 mls/min IV NOW STA; Protocol Stop: 09/01/21 14:07 Last Admin: 09/01/21 14:10 Dose: 5 mls/min Documented by: [id number] Sodium Chloride (Nss) 500 mls @ 999 mls/hr IV .Q31M ONE Stop: 09/01/21 14:35 Last Admin: 09/01/21 14:10 Dose: 999 mls/hr Documented by: [id number] Ioversol (Optiray 320 100ml) 94 ml IV ONCE ONE Stop: 09/01/21 12:07 Last Admin: 09/01/21 12:09 Dose: 94 ml Documented by: [id number] Imaging Data Radiologist's Impression: Abdomen/Pelvis CT 09/01/21 10:53 CT SCAN OF THE ABDOMEN AND PELVIS WITH IV CONTRAST CLINICAL HISTORY: Generalized abdominal pain. Nausea and vomiting. Diarrhea. COMPARISON STUDY: Abdominal CT dated 06/06/2021. TECHNIQUE: Following the IV administration of 94 cc of Optiray 320, CT scan of the abdomen and pelvis is performed from the lung bases to the proximal femora. Images are reviewed in the axial, sagittal, and coronal planes. IV contrast was administered without complication. A dose lowering technique was utilized adhering to the principles of ALARA. The examination is compromised by motion artifact. CT DOSE: 513.35 mGy.cm FINDINGS: Lung bases: The heart is mildly enlarged and without pericardial effusion. There is a small hiatal hernia. There is multifocal airspace consolidation seen at both lung bases, right greater than left. No pleural effusion is identified. An 8 mm pleural-based nodule is again seen at the right lung base on image #1. Liver: The contrast-enhanced liver is normal in size, contour, and attenuation. There is moderate intrahepatic biliary ductal dilatation. The hepatic veins and portal veins are patent. Gallbladder: Surgically absent noting clips in the gallbladder fossa. The common bile duct is dilated measuring up to 1.6 cm in diameter. Spleen: Normal in size and attenuation. Pancreas: The pancreas is moderately atrophic and grossly unremarkable. Adrenal glands: Unremarkable. Kidneys: The contrast enhanced kidneys demonstrate cortical atrophy and are without hydronephrosis. The kidneys enhance symmetrically. Bilateral renal cysts measure up to 5.8 cm. Additional subcentimeter cortical hypodensities also likely represent cysts but are too small for definitive characterization. There are least 2 nonobstructing left renal calculi measuring up to 8mm. Abdominal vasculature: The abdominal aorta is normal in course and caliber noting mild atherosclerotic calcification. Bowel: A small gastric diverticulum is seen in the fundal region. There is no bowel obstruction. The appendix is not visualized. Peritoneum: No acute peritoneal free air is identified. There is a small volume of pelvic ascites. There is a small fat-containing umbilical hernia. Lymphadenopathy: None. Pelvic viscera: The bladder is normal as visualized. The uterus is surgically absent. No adnexal lesion is seen. Phleboliths are noted along the right gonadal vein. There is a fat-containing left inguinal hernia. Skeletal structures: The skeletal structures are osteopenic. There is moderate lumbosacral spondylosis. No lytic or blastic lesions are seen. IMPRESSION: 1. Multifocal airspace consolidation is seen at both lung bases. Correlate clinically for evidence of pneumonia/aspiration pneumonitis. Radiographic follow-up to resolution is recommended. 2. There is a small volume of free fluid in the pelvis which is a nonspecific but abnormal finding and may be reactive. 3. Left-sided nephrolithiasis. 4. Moderate intra and extra hepatic biliary ductal dilatation is similar to previous. 5. Cardiomegaly. 6. Additional findings as above. ACT 112: Negative or not required by law. Electronically signed by: Chandan Scott M.D. 09/01/2021 12:41 PM Discharge Plan Visit Data Chief Complaint: Vomiting ED Provider: Good Vazquez Discharge Problem: Aspiration pneumonitis, AMS (altered mental status), Acute UTI Forms Stand Alone Forms: [facility] Prescriptions Prescriptions: No Action (DME) Overnight Pad For Women Pad See Rx Instructions .ROUTE .MEDSUPPLY Qty: 168 RF: 3 (DME) Novofine Autocover 30 gauge x 1/3" needle See Rx Instructions .ROUTE .MEDSUPPLY Qty: 100 RF: 3 nystatin 100,000 unit/gram powder 1 applic TOP BID PRN (Reason: rash) Qty: 60 RF: 0 celecoxib [Celebrex] 200 mg capsule 400 mg PO QAM Qty: 180 RF: 3 (DME) OneTouch Ultra Blue Test Strip Strip See Rx Instructions .ROUTE .MEDSUPPLY Qty: 200 RF: 3 (DME) BD AutoShield Duo Pen Needle 30 gauge x 3/16" needle See Rx Instructions .ROUTE .MEDSUPPLY Qty: 200 RF: 3 carvedilol [Coreg] 3.125 mg tablet 3.125 mg PO BID17 Qty: 60 RF: 5 donepezil [Aricept] 10 mg tablet 10 mg PO HS Qty: 90 RF: 3 cholecalciferol (vitamin D3) 50 mcg (2,000 unit) capsule 2,000 unit PO QAM Qty: 30 RF: 6 simvastatin 20 mg tablet 20 mg PO HS Qty: 90 RF: 3 lisinopril 20 mg tablet 20 mg PO QAM Qty: 90 RF: 3 prednisone 20 mg tablet 20 mg PO QAM Qty: 90 RF: 3 (DME) lancets [ReadyLance Safety Lancets] 30 gauge misc See Rx Instructions .ROUTE .MEDSUPPLY Qty: 200 RF: 3 tramadol 50 mg tablet 50 mg PO TID Qty: 90 RF: 1 diclofenac sodium 1 % Gel 4 g TOPICAL DAILY PRN (Reason: PAIN R KNEE) RF: 0 Lantus Solostar U-100 Insulin 100 unit/mL (3 mL) insulin pen 0 unit SC Q12H RF: 0 Bengay Greaseless 15-10 % Cream 1 applic TOPICAL QID RF: 0 acetaminophen 325 mg tablet 325 mg PO TID MDD 3 GRAMS/24 HOURS RF: 0 Referrals Referrals: Aniket Drake MD [Primary Care Provider] - Discharge Problem: AMS (altered mental status) Qualifiers: Altered mental status type: unspecified Qualified Code(s): R41.82 - Altered mental status, unspecified
[2021-09-01 11:23] LABS: Basophils # (auto) 0.02 K/uL (0-0.2); Basophils % (auto) 0.2 %; Eosinophils # (auto) 0.07 K/uL (0-0.5); Eosinophils % (auto) 0.6 %; Hemoglobin 16.2 g/dL (12.0-16.0); Immature Granulocytes # (auto) 0.04 K/uL (0.00-0.02); Immature Granulocytes % (auto) 0.4 %; Lymphocytes # (auto) 1.15 K/uL (1.2-3.4); Lymphocytes % (auto) 10.1 %; Mean Corpuscular Hgb Conc 33.8 g/dL (32-36); Mean Corpuscular Volume 97.8 fL (80-100); Mean Platelet Volume 10.8 fL (7.4-10.4); Monocytes # (auto) 0.91 K/uL (0.11-0.59); Neutrophils # (auto) 9.17 K/uL (1.4-6.5); Neutrophils % (auto) 80.7 %; Platelet Count 206 K/uL (130-400); RDW Coefficient of Variation 13.6 % (11.5-14.5); RDW Standard Deviation 47.9 fL (36.4-46.3); Red Blood Count 4.91 M/uL (4.2-5.4); White Blood Count 11.36 K/uL (4.8-10.8)
[2021-09-01 11:50] LABS: Alanine Aminotransferase 9 U/L (7-52); Albumin Globulin Ratio 1.6 (0.9-2); Albumin Level 3.5 gm/dl (3.4-5.0); Alkaline Phosphatase 30 U/L (34-104); Anion Gap 10 (3-11); Aspartate Aminotransferase 12 U/L (13-39); BUN Creatinine Ratio 43.1 (10-20); Bilirubin,Total 1.2 mg/dl (0.2-1.0); Blood Urea Nitrogen 47 mg/dl (6-23); Calcium 8.9 mg/dl (8.5-10.1); Carbon Dioxide 25 mmol/L (21-32); Chloride 104 mmol/L (98-107); Est GFR (African American) 53.6 ml/min; Est GFR (Non-African American) 46.3 ml/min; Globulin 2.2 gm/dl (2.5-4.0); Glucose 259 mg/dl (70-99(Fasting)); Lipase 16 U/L (11-82); Potassium 4.3 mmol/L (3.5-5.1); Sodium 139 mmol/L (136-145); Total Protein 5.7 gm/dl (6.0-8.3)
[2021-09-01] MEDS ORDERED: OPTIRAY 320 100ml IV ONE (12:06)
--- NOTE | 2021-09-01 12:42 | CT Scan Report ---
CT SCAN OF THE ABDOMEN AND PELVIS WITH IV CONTRAST CLINICAL HISTORY: Generalized abdominal pain. Nausea and vomiting. Diarrhea. COMPARISON STUDY: Abdominal CT dated 06/06/2021. TECHNIQUE: Following the IV administration of 94 cc of Optiray 320, CT scan of the abdomen and pelvi s is performed from the lung bases to the proximal femora. Images are reviewed in the axial, sagittal , and coronal planes. IV contrast was administered without complication. A dose lowering technique wa s utilized adhering to the principles of ALARA. The examination is compromised by motion artifact. CT DOSE: 513.35 mGy.cm FINDINGS: Lung bases: The heart is mildly enlarged and without pericardial effusion. There is a small hiatal h ernia. There is multifocal airspace consolidation seen at both lung bases, right greater than left. N o pleural effusion is identified. An 8 mm pleural-based nodule is again seen at the right lung base o n image #1. Liver: The contrast-enhanced liver is normal in size, contour, and attenuation. There is moderate int rahepatic biliary ductal dilatation. The hepatic veins and portal veins are patent. Gallbladder: Surgically absent noting clips in the gallbladder fossa. The common bile duct is dilated measuring up to 1.6 cm in diameter. Spleen: Normal in size and attenuation. Pancreas: The pancreas is moderately atrophic and grossly unremarkable. Adrenal glands: Unremarkable. Kidneys: The contrast enhanced kidneys demonstrate cortical atrophy and are without hydronephrosis. T he kidneys enhance symmetrically. Bilateral renal cysts measure up to 5.8 cm. Additional subcentimete r cortical hypodensities also likely represent cysts but are too small for definitive characterizatio n. There are least 2 nonobstructing left renal calculi measuring up to 8mm. Abdominal vasculature: The abdominal aorta is normal in course and caliber noting mild atheroscleroti c calcification. Bowel: A small gastric diverticulum is seen in the fundal region. There is no bowel obstruction. The appendix is not visualized. Peritoneum: No acute peritoneal free air is identified. There is a small volume of pelvic ascites. Th ere is a small fat-containing umbilical hernia. Lymphadenopathy: None. Pelvic viscera: The bladder is normal as visualized. The uterus is surgically absent. No adnexal lesi on is seen. Phleboliths are noted along the right gonadal vein. There is a fat-containing left inguin al hernia. Skeletal structures: The skeletal structures are osteopenic. There is moderate lumbosacral spondylosi s. No lytic or blastic lesions are seen. IMPRESSION: 1. Multifocal airspace consolidation is seen at both lung bases. Correlate clinically for evidence of pneumonia/aspiration pneumonitis. Radiographic follow-up to resolution is recommended. 2. There is a small volume of free fluid in the pelvis which is a nonspecific but abnormal finding an d may be reactive. 3. Left-sided nephrolithiasis. 4. Moderate intra and extra hepatic biliary ductal dilatation is similar to previous. 5. Cardiomegaly. 6. Additional findings as above. ACT 112: Negative or not required by law. Electronically signed by: Chandan Scott M.D. 09/01/2021 12:41 PM
[2021-09-01 12:56] LABS: Appearance Urine Cloudy (Clear); Bacteria Urine Automated 4+ (Negative); Blood Urine 3+ (Negative); Color Urine Dark Yellow; Glucose Urine UA 3+ (Negative); Ketones Urine Trace (Negative); Leukocyte Esterase Urine Trace (Negative); Nitrite Urine Negative (Negative); Protein Urine Trace (Negative); Urobilinogen Urine Negative (Negative)
[2021-09-01 12:58] LABS: Bilirubin Urine 1+ (Negative)
[2021-09-01] MEDS ORDERED: CEFEPIME 2,000 MG/20 ML VIAL IV STA (14:04)
[2021-09-01] MEDS ORDERED: SODIUM CHLORIDE 0.9% 500 ML IV ONE (14:05)
[2021-09-01] MEDS ORDERED: HYDROCORTISONE SOD SUCCINATE 100 MG/2 ML VIAL IV STA (14:22)
--- NOTE | 2021-09-01 14:36 | History & Physical Report ---
Date of Service September 01, 2021 Assessment & Plan (1) Septic shock: Plan: Presents with nausea/vomiting/diarrhea, UTI, aspiration pneumonitis, and hypotension Afebrile, mild leukocytosis, borderline tachycardia A lot of her hypotension could be secondary to relative adrenal insufficiency as she is on chronic prednisone Blood pressures initially in the 60s systolic and now improved with IV fluids -Admit to PCU -Start hydrocortisone 100 mg IV every 8 hours for stress dose steroids -Continue IV fluid hydration with normal saline with 20 mg potassium chloride at 100 mL's per hour x2 L -Check lactate -Add on blood cultures-of note, antibiotics given in the ER prior to blood cultures being drawn -Follow urine culture-has a history of pansensitive Pseudomonas, E. coli, and Proteus -Continue cefepime for pneumonia as well as UTI -Hold home antihypertensives -Check troponin, although ECG without acute ischemic changes -Follow CBC, CMP, procalcitonin, magnesium, phosphorus in the morning (2) Nausea vomiting and diarrhea: Plan: Likely secondary to viral gastroenteritis as reports are that there are multiple other members of her personal senior living sick with a similar illness -Check stool studies with stool PCR test, is immunocompromised on chronic steroids and would consider treatment if had bacterial enteritis -Hydrating with IV fluids -IV Zofran as needed for nausea -Okay to give clear liquids diet as tolerated for now -Giving stress to steroids as some of her nausea vomiting may be secondary to adrenal insufficiency (3) Aspiration pneumonitis: Plan: Likely secondary to nausea/vomiting. Is not hypoxic at this time but does complain of a mild cough Remains afebrile at this time CT abdomen/pelvis with infiltrates at the bases of bilateral lungs -Check chest x-ray -Check blood cultures -Sputum culture if can produce -Supplemental O2 to keep pulse ox greater than 90% as needed -Treating with IV cefepime as above (4) Metabolic encephalopathy: Plan: With lethargy likely secondary to adrenal insufficiency as well as septic shock Treating all as above Supportive care (5) Cystitis: Plan: With UTI as above Treat with IV cefepime Follow urine culture Does have nonobstructing kidney stones on CT imaging but does not need urgent treatment (6) Polymyalgia rheumatica: Plan: On chronic prednisone 20 mg daily, also takes tramadol Hold home tramadol Holding home prednisone while on IV hydrocortisone Continue home Celebrex daily (7) Chronic pain: Plan: As above, with PMR and lumbar spine stenosis as cause of pain -Hold home tramadol for encephalopathy -Okay to continue home Celebrex (8) Type 2 diabetes mellitus: Plan: Blood glucose 256 on arrival Due to poor p.o. intake, will cut Lantus in half to 5 units twice daily for now, however with stress dose steroids this will likely increase Continue NovoLog supplemental insulin with meals and at bedtime goal range 100- 140, correction factor 35, carb coverage 15 If develops worsening hyperglycemia, may need to increase Lantus and NovoLog Hemoglobin A1c 7.7% in 06/2021-check again in the morning as it has been almost 3 months (9) Hyperlipidemia: Plan: Continue home simvastatin (10) Dementia: Plan: Supportive care Continue home donepezil (11) Hypertension: Plan: With hypotension as above Holding home carvedilol and lisinopril Restart when appropriate (12) Vitamin D deficiency: Plan: Continue home vitamin D (13) Paroxysmal atrial fibrillation: Plan: Lone perioperative A. fib in 2018, no recurrence since then Holding home beta-floridalma as above for hypotension Not on anticoagulation Plan: DVT prophylaxis-Lovenox SQ Disposition-admit to PCU. Will need PT/OT consultations prior to discharge to see if she will need to SNF versus return to [facility] DNR/DNI Discussed her care with her son, Benedict, on the phone History of Present Illness Chief Complaint: Nausea/vomiting/diarrhea, low blood pressure Primary Care Provider: Aniket Drake MD This patient is an 86-year-old female with a history of PMR on chronic prednisone, chronic pain, lone atrial fibrillation postoperatively, DM 2, HTN, dementia, nephrolithiasis, renal cysts, and recurrent UTIs who presents to the ER from her personal senior living at [facility] with nausea/vomiting/diarrhea for 2 to 3 days. She was also complaining of painful urination and has a history of recurrent UTI. She was noted to have a low blood pressure with systolics in the 60s and was given 1 L of fluids by EMS en route to the ED. She was noted to be drowsy and required sternal rub at times and was not feeling well, complained of abdominal pain. She had intermittent low blood pressures which are not recorded in the chart reportedly in the 70s to 80s that improved with another 1.5 L of normal saline in the ER. She was found to have possible aspiration pneumonitis on imaging as well as a UTI and was treated with IV cefepime. When I saw her, she was drowsy and kept her eyes closed but did answer my questions and was oriented. She denied shortness of breath but admits to a mild cough, and some pain in the chest with taking deep breaths. Also with lower abdominal pain and lightheadedness. Reports "I feel terrible." A lactate was not performed at the time of admission. Troponin was ordered and pending, ECG ordered and pending. Covid-19 test was negative. Chest x-ray ordered and pending at the time of admission. She will be admitted for septic shock in the setting of adrenal insufficiency and acute metabolic encephalopathy. Allergies Allergy/AdvReac Type Severity Reaction Status Date / Time adhesive Allergy Intermediate SKIN Verified 09/01/21 12:42 BLISTERS tetanus toxoid, adsorbed Allergy Mild EDEMA AT Verified 09/01/21 12:42 SITE codeine AdvReac Intermediate HEART Verified 09/01/21 12:42 PALPITATIONS, RECIEVED MORPHINE IV IN 2004 ADMIT Home Medications Medication Instructions Recorded Confirmed Type incontinence pad, liner, disp #168 ea 08/11/19 06/22/21 Rx (Overnight Pad For Women) pen needle, diabetic, safety 30 #100 ea 06/28/20 06/22/21 Rx gauge x 1/3" (Novofine Autocover) nystatin 100,000 unit/gram topical 1 applic TOP BID PRN #60 gm 09/27/20 09/01/21 Rx powder celecoxib 200 mg capsule (Celebrex) 400 mg PO QAM #180 cap 10/24/20 09/01/21 Rx blood sugar diagnostic (OneTouch #200 ea 11/14/20 06/22/21 Rx Ultra Blue Test Strip) pen needle,diabetic dual safty 30 #200 ea 11/14/20 06/22/21 Rx gauge x 3/16" (BD AutoShield Duo Pen Needle) diclofenac sodium 1 % topical gel 4 g TOPICAL DAILY PRN 05/05/21 09/01/21 History insulin glargine 100 unit/mL (3 0 unit SC Q12H 05/05/21 09/01/21 History mL) subcutaneous pen (Lantus Solostar U-100 Insulin) carvedilol 3.125 mg tablet (Coreg) 3.125 mg PO BID17 #60 tab 05/29/21 09/01/21 Rx cholecalciferol (vitamin D3) 50 2,000 unit PO QAM #30 cap 05/29/21 09/01/21 Rx mcg (2,000 unit) capsule donepezil 10 mg tablet (Aricept) 10 mg PO HS #90 tab 05/29/21 09/01/21 Rx lisinopril 20 mg tablet 20 mg PO QAM #90 tab 05/29/21 09/01/21 Rx simvastatin 20 mg tablet 20 mg PO HS #90 tab 05/29/21 09/01/21 Rx prednisone 20 mg tablet 20 mg PO QAM #90 tab 07/10/21 09/01/21 Rx lancets 30 gauge (ReadyLance #200 ea 07/11/21 Rx Safety Lancets) tramadol 50 mg tablet 50 mg PO TID #90 tab 07/19/21 09/01/21 Rx acetaminophen 325 mg tablet 325 mg PO TID MDD 3 GRAMS/24 HOURS 09/01/21 09/01/21 History methyl salicylate 15 %-menthol 10 1 applic TOPICAL QID 09/01/21 09/01/21 History % topical cream Past Med/Surg History Medical History Acute shoulder pain Atrial fibrillation Developed intraoperatively on 06/15/2019. 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 Cognitive impairment Complicated UTI (urinary tract infection) Depression Diabetes Encounter for pre-operative examination Gait instability Gastroesophageal reflux History of respiratory failure Hx of fall Hx pulmonary embolism Hx: UTI (urinary tract infection) Hydronephrosis with obstructing calculus Hyperlipidemia Knee pain Lumbago Lumbar facet joint syndrome Paroxysmal atrial fibrillation Spinal stenosis, lumbar region without neurogenic claudication Type 2 diabetes mellitus Vitamin D deficiency Weakness Surgical History H/O cystoscopy cyst with L stent: 06/15/2019 at [facility]. MAC. Patient given insulin for hyperglycemia and metoprolol and cardizem intraop H/O: hysterectomy History of appendectomy History of knee replacement procedure of left knee History of knee replacement procedure of right knee History of open reduction and internal fixation (ORIF) procedure L HUMEROUS Hx of cholecystectomy Hx of excision of epidermal inclusion cyst Hx of tonsillectomy Presence urogenital implant Family History Sister Diabetes Stroke Brother Diabetes Prostate cancer Father Lung disease Social History Smoking Status: Never smoker Second Hand Exposure: No; Hx Substance Use: No Preferred Language: Barbadian Communication Ability: Effective Visual Impairment: Limited Hearing Ability: Hard of Hearing Bicycle Subassembler Required: No Beliefs That Will Affect Care: None Current Living Situation: Personal Care Facility Current Living Situation Comment: [facility], assisted living current occupational status: retired Feels Safe at Home: Yes caffeine: No Seatbelt Use: always Assistive Devices: Glasses Review of Systems Review of Systems: All systems reviewed & are unremarkable except as noted in HPI & below Physical Exam Constitutional: WD/WN, vitals as above Eyes: PERRL, conjunctivae normal, anicteric sclerae ENMT: external ear and nose normal, oropharynx normal Neck: trachea midline, no thyromegaly Respiratory: normal respiratory effort, lungs clear to auscultation Auscultation: + diminished lung sounds (At the bases) Cardiovascular: RRR, no murmur, no edema Chest (Breasts): Chest: normal inspection of chest Gastrointestinal (Abdomen): normal bowel sounds, soft, nontender, no hepatosplenomegaly Musculoskeletal: Extremities: extremities normal to inspection; no cyanosis and no clubbing Skin: no rashes, warm and dry Neurologic: moves all extremities and awake; no focal motor deficits Psychiatric: Orientation: alert, oriented to person, oriented to place and cooperative Eye Contact: + poor eye contact Lymphatic: no lymphedema Results & Data Results & Data ([facility]) Vital Signs (Past 12 Hours) Vital Signs Temp Pulse Resp BP Pulse Ox 09/01/21 14:01 87 16 138/65 95 09/01/21 13:58 90 16 132/74 95 09/01/21 12:30 86 18 148/71 H 94 09/01/21 11:58 81 20 131/69 95 09/01/21 11:55 96 09/01/21 10:39 37.0 C 86 20 100/26 L 96 Laboratory Results 09/01/21 09/01/21 09/01/21 Range/Units 13:09 12:26 11:11 WBC (4.8-10.8) K/uL RBC (4.2-5.4) M/uL Hgb (12.0-16.0) g/dL Hct (37-47) % MCV (80-100) fL MCH (25-34) pg MCHC (32-36) g/dL RDW Std Deviation (36.4-46.3) fL RDW Coeff of Junie (11.5-14.5) % Plt Count (130-400) K/uL MPV (7.4-10.4) fL Immature Gran % (Auto) % Neut % (Auto) % Lymph % (Auto) % [place] % (Auto) % Eos % (Auto) % Baso % (Auto) % Neut # (Auto) (1.4-6.5) K/uL Lymph # (Auto) (1.2-3.4) K/uL [place] # (Auto) (0.11-0.59) K/uL Eos # (Auto) (0-0.5) K/uL Baso # (Auto) (0-0.2) K/uL Immature Gran # (Auto) (0.00-0.02) K/uL Sodium 139 (136-145) mmol/L Potassium 4.3 (3.5-5.1) mmol/L Chloride 104 (98-107) mmol/L Carbon Dioxide 25 (21-32) mmol/L Anion Gap 10 (3-11) BUN 47 H (6-23) mg/dl Creatinine 1.09 (0.6-1.2) mg/dl Est Cr Clr Drug Dosing Not Reportable Est GFR ( Amer) 53.6 ml/min Est GFR (Non-Af Amer) 46.3 ml/min BUN/Creatinine Ratio 43.1 H (10-20) Glucose 259 H (70-99(Fasting)) mg/dl Calcium 8.9 (8.5-10.1) mg/dl Total Bilirubin 1.2 H (0.2-1.0) mg/dl AST 12 L (13-39) U/L ALT 9 (7-52) U/L Alkaline Phosphatase 30 L (34-104) U/L Total Protein 5.7 L (6.0-8.3) gm/dl Albumin 3.5 (3.4-5.0) gm/dl Globulin 2.2 L (2.5-4.0) gm/dl Albumin/Globulin Ratio 1.6 (0.9-2) Lipase 16 (11-82) U/L Urine Color Dark Yellow Urine Appearance Cloudy A (Clear) Urine pH 5.0 (4.5-7.5) Ur Specific [place] 1.030 (1.000-1.030) Urine Protein Trace H (Negative) Urine Glucose (UA) 3+ H (Negative) Urine Ketones Trace H (Negative) Urine Blood 3+ H (Negative) Urine Nitrite Negative (Negative) Urine Bilirubin 1+ H (Negative) Urine Urobilinogen Negative (Negative) Ur Leukocyte Esterase Trace H (Negative) Urine WBC (Auto) 10-30 H (0-5) /hpf Urine RBC (Auto) 5-10 H (0-4) /hpf U Hyaline Cast (Auto) 10-30 H (0-5) /lpf U Epithel Cells (Auto) 10-20 H (0-5) /lpf Urine Bacteria (Auto) 4+ H (Negative) Granular Casts 1-5 H (0) /lpf Urine Yeast Not Reportable SARS-CoV-2, RNA, NAAT NEGATIVE (NEGATIVE) 09/01/21 Range/Units 11:11 WBC 11.36 H (4.8-10.8) K/uL RBC 4.91 (4.2-5.4) M/uL Hgb 16.2 H (12.0-16.0) g/dL Hct 48.0 H (37-47) % MCV 97.8 (80-100) fL MCH 33.0 (25-34) pg MCHC 33.8 (32-36) g/dL RDW Std Deviation 47.9 H (36.4-46.3) fL RDW Coeff of Junie 13.6 (11.5-14.5) % Plt Count 206 (130-400) K/uL MPV 10.8 H (7.4-10.4) fL Immature Gran % (Auto) 0.4 % Neut % (Auto) 80.7 % Lymph % (Auto) 10.1 % [place] % (Auto) 8.0 % Eos % (Auto) 0.6 % Baso % (Auto) 0.2 % Neut # (Auto) 9.17 H (1.4-6.5) K/uL Lymph # (Auto) 1.15 L (1.2-3.4) K/uL [place] # (Auto) 0.91 H (0.11-0.59) K/uL Eos # (Auto) 0.07 (0-0.5) K/uL Baso # (Auto) 0.02 (0-0.2) K/uL Immature Gran # (Auto) 0.04 H (0.00-0.02) K/uL Sodium (136-145) mmol/L Potassium (3.5-5.1) mmol/L Chloride (98-107) mmol/L Carbon Dioxide (21-32) mmol/L Anion Gap (3-11) BUN (6-23) mg/dl Creatinine (0.6-1.2) mg/dl Est Cr Clr Drug Dosing Est GFR ( Amer) ml/min Est GFR (Non-Af Amer) ml/min BUN/Creatinine Ratio (10-20) Glucose (70-99(Fasting)) mg/dl Calcium (8.5-10.1) mg/dl Total Bilirubin (0.2-1.0) mg/dl AST (13-39) U/L ALT (7-52) U/L Alkaline Phosphatase (34-104) U/L Total Protein (6.0-8.3) gm/dl Albumin (3.4-5.0) gm/dl Globulin (2.5-4.0) gm/dl Albumin/Globulin Ratio (0.9-2) Lipase (11-82) U/L Urine Color Urine Appearance (Clear) Urine pH (4.5-7.5) Ur Specific [place] (1.000-1.030) Urine Protein (Negative) Urine Glucose (UA) (Negative) Urine Ketones (Negative) Urine Blood (Negative) Urine Nitrite (Negative) Urine Bilirubin (Negative) Urine Urobilinogen (Negative) Ur Leukocyte Esterase (Negative) Urine WBC (Auto) (0-5) /hpf Urine RBC (Auto) (0-4) /hpf U Hyaline Cast (Auto) (0-5) /lpf U Epithel Cells (Auto) (0-5) /lpf Urine Bacteria (Auto) (Negative) Granular Casts (0) /lpf Urine Yeast SARS-CoV-2, RNA, NAAT (NEGATIVE) Diagnostic Findings Abdomen/Pelvis CT 09/01/21 10:53 CT SCAN OF THE ABDOMEN AND PELVIS WITH IV CONTRAST CLINICAL HISTORY: Generalized abdominal pain. Nausea and vomiting. Diarrhea. COMPARISON STUDY: Abdominal CT dated 06/06/2021. TECHNIQUE: Following the IV administration of 94 cc of Optiray 320, CT scan of the abdomen and pelvis is performed from the lung bases to the proximal femora. Images are reviewed in the axial, sagittal, and coronal planes. IV contrast was administered without complication. A dose lowering technique was utilized adhering to the principles of ALARA. The examination is compromised by motion artifact. CT DOSE: 513.35 mGy.cm FINDINGS: Lung bases: The heart is mildly enlarged and without pericardial effusion. There is a small hiatal hernia. There is multifocal airspace consolidation seen at both lung bases, right greater than left. No pleural effusion is identified. An 8 mm pleural-based nodule is again seen at the right lung base on image #1. Liver: The contrast-enhanced liver is normal in size, contour, and attenuation. There is moderate intrahepatic biliary ductal dilatation. The hepatic veins and portal veins are patent. Gallbladder: Surgically absent noting clips in the gallbladder fossa. The common bile duct is dilated measuring up to 1.6 cm in diameter. Spleen: Normal in size and attenuation. Pancreas: The pancreas is moderately atrophic and grossly unremarkable. Adrenal glands: Unremarkable. Kidneys: The contrast enhanced kidneys demonstrate cortical atrophy and are without hydronephrosis. The kidneys enhance symmetrically. Bilateral renal cysts measure up to 5.8 cm. Additional subcentimeter cortical hypodensities also likely represent cysts but are too small for definitive characterization. There are least 2 nonobstructing left renal calculi measuring up to 8mm. Abdominal vasculature: The abdominal aorta is normal in course and caliber noting mild atherosclerotic calcification. Bowel: A small gastric diverticulum is seen in the fundal region. There is no bowel obstruction. The appendix is not visualized. Peritoneum: No acute peritoneal free air is identified. There is a small volume of pelvic ascites. There is a small fat-containing umbilical hernia. Lymphadenopathy: None. Pelvic viscera: The bladder is normal as visualized. The uterus is surgically absent. No adnexal lesion is seen. Phleboliths are noted along the right gonadal vein. There is a fat-containing left inguinal hernia. Skeletal structures: The skeletal structures are osteopenic. There is moderate lumbosacral spondylosis. No lytic or blastic lesions are seen. IMPRESSION: 1. Multifocal airspace consolidation is seen at both lung bases. Correlate clinically for evidence of pneumonia/aspiration pneumonitis. Radiographic follow-up to resolution is recommended. 2. There is a small volume of free fluid in the pelvis which is a nonspecific but abnormal finding and may be reactive. 3. Left-sided nephrolithiasis. 4. Moderate intra and extra hepatic biliary ductal dilatation is similar to previous. 5. Cardiomegaly. 6. Additional findings as above. ACT 112: Negative or not required by law. Electronically signed by: Chandan Scott M.D. 09/01/2021 12:41 PM ECG Additional Comments: ECG on 09/01/2021 at 1430 with normal sinus rhythm, rate 90, no ischemic changes Code Status & VTE Plan Code Status DNR/DNI as discussed with patient and her son on the phone VTE Prophylaxis Plan VTE Prophylaxis will be ordered: Yes PG Care Time/CCT Total # of Minutes Spent Total Time Spent with Patient: Total time spent is greater than 50% in coordination of care (as documented) at patient's floor/unit and/or counseling patient: Coding Level of Care Code 83642 Initial Inpt Care Lvl 3 Diagnoses Metabolic encephalopathy G93.41 Polymyalgia rheumatica M35.3 Chronic pain G89.29 Paroxysmal atrial fibrillation I48.0 Type 2 diabetes mellitus E11.9 Hyperlipidemia E78.5 Dementia F03.90 Dementia behavioral disturbance: without behavioral disturbance Dementia type: unspecified type Hypertension I10 Hypertension type: unspecified Cystitis N30.90 Vitamin D deficiency E55.9 Nausea vomiting and diarrhea R11.2; R19.7 Septic shock A41.9; R65.21 Aspiration pneumonitis J69.0 (1) Dementia Dementia behavioral disturbance: without behavioral disturbance Dementia type: unspecified type Qualified Code(s): F03.90 - Unspecified dementia without behavioral disturbance (2) Hypertension Hypertension type: unspecified Qualified Code(s): I10 - Essential (primary) hypertension
--- NOTE | 2021-09-01 15:25 | XRay Report ---
SINGLE VIEW CHEST CLINICAL HISTORY: Pneumonia. FINDINGS: An AP, portable, upright chest radiograph is compared to study dated 06/06/2021 and correla palmer with abdominal CT performed the same day 09/01/2021. The heart is enlarged noting atherosclerotic calcification of the thoracic aorta. There is pulmonary vascular congestion. There is elevation of th e right hemidiaphragm. Patchy airspace opacities are seen in the right mid to lower lung. No large pl eural effusion or pneumothorax is identified. There are also minimal left basilar opacities. The skel etal structures are osteopenic. The bony thorax is grossly intact. Postoperative change is noted in t he left humerus. Cholecystectomy clips are seen in the right upper quadrant. IMPRESSION: 1. Cardiomegaly with pulmonary vascular congestion. 2. Airspace opacities are seen in the right mid to lower lung, corresponding to the abnormality seen on today's abdominal CT. This could represent an infectious/inflammatory pneumonitis and/or pulmonary edema. Clinical correlation will be required and radiographic follow-up to resolution is recommended . ACT 112: Negative or not required by law. Electronically signed by: Chandan Scott M.D. 09/01/2021 3:23 PM
[2021-09-01] MEDS: NSS + 20MEQ KCL 20 MEQ/1,000 ML BAG IV SCH (15:45)
--- NOTE | 2021-09-01 17:28 | Electrocardiogram Report ---
Test Reason : Blood Pressure : / mmHG Vent. Rate : 090 BPM Atrial Rate : 090 BPM P-R Int : 126 ms QRS Dur : 090 ms QT Int : 356 ms P-R-T Axes : 026 -65 102 degrees QTc Int : 435 ms Normal sinus rhythm Left anterior fascicular block Minimal voltage criteria for LVH, may be normal variant T wave abnormality, consider lateral ischemia Abnormal ECG When compared with ECG of 27-NOV-2020 23:44, Vent. rate has increased BY 38 BPM T wave inversion now evident in Lateral leads Confirmed by Oracio Herrera ([id number]) on 09/01/2021 5:28:01 PM Referred By: WALE Confirmed By:Isael Herrera
[2021-09-01] MEDS ORDERED: GLUCOSE 40% GEL 15 GM TUBE PO PRN (19:33)
[2021-09-01] MEDS ORDERED: CARBOHYDRATES FOR HYPOGLYCEMIA PO PRN (19:33)
[2021-09-01] MEDS ORDERED: GLUCAGON FOR INJ 1 MG VIAL SQ PRN (19:33)
[2021-09-01] MEDS ORDERED: DICLOFENAC SOD 1% GEL 100 GM TUBE EXT PRN (19:33)
[2021-09-01] MEDS ORDERED: ONDANSETRON INJ 2 MG/ML 2 ML VIAL IV PRN (19:33)
[2021-09-01] MEDS ORDERED: DEXTROSE 50% 50 ML SYRINGE IV PRN (19:33)
[2021-09-01] MEDS ORDERED: GLUCOSE 10 TABS/TUBE PO PRN (19:33)
[2021-09-01] MEDS ORDERED: PATIENT'S HEIGHT AND/OR WEIGHT NEEDED SCH (20:00)
[2021-09-01] MEDS: DONEPEZIL HCL 10 MG TAB PO SCH (20:24)
[2021-09-01] MEDS: ACETAMINOPHEN 325 MG TAB PO SCH (20:24)
[2021-09-01] MEDS: SIMVASTATIN 20 MG TAB PO SCH (20:25)
[2021-09-01] MEDS: INSULIN GLARGINE SOLOSTAR 100 UNITS/ML 3 ML PEN SC SCH (20:25)
[2021-09-01] MEDS ORDERED: HYDROCORTISONE SOD SUCCINATE 100 MG/2 ML VIAL IV SCH (20:30)
[2021-09-01] MEDS: INSULIN ASPART PER UNIT SC SCH (20:33)
[2021-09-01] MEDS: ENOXAPARIN INJ 40 MG/0.4 ML SYR SQ SCH (21:09)
[2021-09-01] MEDS: HYDROCORTISONE SOD 100 MG in SYRINGE 0 ML IV SCH (23:47)
[2021-09-02] MEDS: CEFEPIME 2,000 MG in SYRINGE 0 ML IV SCH ×2 (01:37→14:40)
[2021-09-02] MEDS: NSS + 20MEQ KCL 20 MEQ/1,000 ML BAG IV SCH (02:37)
--- NOTE | 2021-09-02 08:13 | Hospitalist Progress Note ---
Date of Service September 02, 2021 Assessment & Plan (1) Septic shock: Plan: Presents with nausea/vomiting/diarrhea, UTI, aspiration pneumonitis, and hypotension. Afebrile with mild leukocytosis (WBC 11k) Got 1 L EMS, 1.5L in ER. Lactic normalized after additional IVF Blood pressures in 60s systolic, improved after IVF and stress dose steroids Continue hydrocortisone 100mg IV Q8H for today, titrate later this evening Continue IVF total 2 bags NSS +20meq Kcl Kphos for low phos Blood cultures pending -- of note, abx given in ER PRIOR to being drawn --> 1/4 bottles with GPC in chains. Repeat blood cultures pending. Urine cx without growth, but UA did appear infected CTAP with b/l infiltrates of lungs, CXR with Airspace opacities are seen in the right mid to lower lung, corresponding to the abnormality seen on today's abdominal CT. This could represent an infectious/inflammatory pneumonitis and/or pulmonary edema. Clinical correlation will be required and radiographic follow- up to resolution is recommended. --> Not hypoxic, mild cough. If develops O2 requirement, add anaerobic coverage for aspiration pna Continues on Cefepime for IV abx given prior cx pseudomonas/e. coli/proteus. --> Added Vanco IV given GPC in blood cultures Procal 0.91 Will also check legionella given urinary and pulmonary symptoms and from the [place] with multiple sick other members. -->Stool PCR also ordered but yet to be collected Checking ECHO == cxr does note pulm congestion. no hx CHF. Resume lisinopril when able vs ?diuretic but will hold off for now Trop negative, EKG without acute ischemic changes Continue to monitor (2) Nausea vomiting and diarrhea: Plan: Likely secondary to viral gastroenteritis as reports are that there are multiple other members of her personal [facility] sick with a similar illness Stool PCR when able to obtain -- did have BM last evening but not collected Zofran prn nausea Diet as tolerated Stress dose steroids for underlying adrenal insufficiency Checking legionella Monitor (3) Aspiration pneumonitis: Plan: Likely secondary to nausea/vomiting. Is not hypoxic at this time but does complain of a mild cough Remains afebrile at this time CT abdomen/pelvis with infiltrates at the bases of bilateral lungs CXR as above, BCx pending, sputum if able to produce O2 as needed to maintain sats -- 93% on RA currently Cefepime as above, add flagyl if develops O2 requirement (4) Metabolic encephalopathy: Plan: With lethargy likely secondary to adrenal insufficiency as well as septic shock Treating all as above Supportive care Improving, but still present B12 also checked --> LOW 153. IM replacement ordered while inpatient and would continue PO at d/c (5) Cystitis: Plan: With UTI as above although cx without growth?, ?abx prior to collection? Does have nonobstructing kidney stones on CT imaging but does not need urgent treatment, ?nidas if recurrent infections (6) Polymyalgia rheumatica: Plan: On chronic prednisone 20 mg daily, also takes tramadol Hold home tramadol Holding home prednisone while on IV hydrocortisone Continue home Celebrex daily (7) Chronic pain: Plan: As above, with PMR and lumbar spine stenosis as cause of pain -Hold home tramadol for encephalopathy -Okay to continue home Celebrex (8) Type 2 diabetes mellitus: Plan: Blood glucose 256 on arrival Due to poor p.o. intake, will cut Lantus in half to 5 units twice daily for now, however with stress dose steroids this will likely increase Continue NovoLog supplemental insulin with meals and at bedtime goal range 100- 140, correction factor 35, carb coverage 15 If develops worsening hyperglycemia, may need to increase Lantus and NovoLog Hemoglobin A1c 7.7% in 06/2021-check again in the morning as it has been almost 3 months (9) Hyperlipidemia: Plan: Continue home simvastatin (10) Dementia: Plan: Supportive care Continue home donepezil (11) Hypertension: Plan: With hypotension as above --> improved and HTN 157/80 Holding home carvedilol and lisinopril--> resuming carvedilol for rate control given paroxysmal afib Resume lisinopril in AM Hydralazine available prn if needed (12) Vitamin D deficiency: Plan: Continue home vitamin D (13) Paroxysmal atrial fibrillation: Plan: Lone perioperative A. fib in 2018, no recurrence since then Holding home beta-floridalma as above for hypotension, now resumed that BP improved Not on anticoagulation MAGNESIUM 1.6 --> 2gm IV ordered, monitor in AM (14) B12 deficiency: Plan: checked d/t AMS/MCV 98.4 and patient reporting hx neuropathy LOW at 152 --> replacement ordered IM while inpatient, continue PO at d/c Plan: DVT prophylaxis -Lovenox SQ PT/OT consulted -- SNF vs [facility] at d/c? Repeat Bcx pending. Obtaining ECHO Add Flagyl if O2 requirement Decrease steroids in AM Admission and Anticipated Discharge Date Admission Date: September 01, 2021 Subjective patient evaluated this afternoon sleeping this morning and endorses significant fatigue and weakness, generalized pain to abdomen. Diarrhea x 1 this morning but not able to send sample. She states "not feeling well" and reports feeling cold. Confusion as to how she got here and knows she is not at home at the [place] where she resides but read the board on the wall and states "well, that says [facility]" and discussed she was in the hospital. Treating for UTI and possible PNA. Denies much in the way of shortness of breath. Denies chest pain, headache or fever. Linens wet but does not appear to be with urine, provided new warm blanket. Blood cultures 1/4 bottles positive GPC and ordered vancomycin for coverage and ECHO , done but not read yet. Will monitor cultures, supportive care. Hydrocortisone given for stress dosing and suspect would be able to decrease tomorrow. Questions/concerns addressed at this time and she would like the [place] notified of inpatient status. Review of Systems Review of Systems: All systems reviewed & are unremarkable except as noted in HPI & below Physical Exam Constitutional: WD/WN, vitals as above Eyes: PERRL, conjunctivae normal, anicteric sclerae ENMT: external ear and nose normal, oropharynx normal Neck: trachea midline, no thyromegaly Respiratory: normal respiratory effort and able to speak in complete sentences; no respiratory distress, no labored breathing and not tachypneic Auscultation: + diminished lung sounds (At the bases with associated crackles) Cardiovascular: RRR, no murmur, no edema Chest (Breasts): Chest: normal inspection of chest Gastrointestinal (Abdomen): +BS throughout, mild generalized tenderness to palpation (worse in suprapubic region), no guarding/rigidity Musculoskeletal: Extremities: extremities normal to inspection; no cyanosis and no clubbing Skin: no rashes, warm and dry Neurologic: moves all extremities and awake; no focal motor deficits Psychiatric: Orientation: alert, oriented to person, oriented to place and cooperative Eye Contact: + poor eye contact Lymphatic: no lymphedema Results & Data Results & Data ([facility]) Vital Signs (Past 12 Hours) Vital Signs Temp Pulse Pulse Resp BP Pulse Ox 09/02/21 06:49 36.7 C 85 16 159/83 H 93 09/02/21 03:23 37.0 C 88 18 144/74 H 95 09/02/21 00:10 88 09/02/21 00:09 85 09/01/21 23:17 36.9 C 89 18 121/74 93 Laboratory Results 09/02/21 09/02/21 09/02/21 Range/Units 08:11 08:11 08:11 WBC (4.8-10.8) K/uL RBC (4.2-5.4) M/uL Hgb (12.0-16.0) g/dL Hct (37-47) % MCV (80-100) fL MCH (25-34) pg MCHC (32-36) g/dL RDW Std Deviation (36.4-46.3) fL RDW Coeff of Junie (11.5-14.5) % Plt Count (130-400) K/uL MPV (7.4-10.4) fL Immature Gran % (Auto) % Neut % (Auto) % Lymph % (Auto) % [place] % (Auto) % Eos % (Auto) % Baso % (Auto) % Neut # (Auto) (1.4-6.5) K/uL Lymph # (Auto) (1.2-3.4) K/uL [place] # (Auto) (0.11-0.59) K/uL Eos # (Auto) (0-0.5) K/uL Baso # (Auto) (0-0.2) K/uL Immature Gran # (Auto) (0.00-0.02) K/uL Sodium (136-145) mmol/L Potassium (3.5-5.1) mmol/L Chloride (98-107) mmol/L Carbon Dioxide (21-32) mmol/L Anion Gap (3-11) BUN (6-23) mg/dl Creatinine (0.6-1.2) mg/dl Est Cr Clr Drug Dosing Est GFR ( Amer) ml/min Est GFR (Non-Af Amer) ml/min BUN/Creatinine Ratio (10-20) Glucose (70-99(Fasting)) mg/dl POC Glucose (70-99) mg/dl Estimat Average Glucose 177 mg/dl Hemoglobin A1c 7.8 H (4.5-5.6) % Lactate (0.4-2.0) mmol/L Calcium (8.5-10.1) mg/dl Phosphorus (2.5-4.9) mg/dl Magnesium (1.7-2.4) mg/dl Total Bilirubin (0.2-1.0) mg/dl AST (13-39) U/L ALT (7-52) U/L Alkaline Phosphatase (34-104) U/L Troponin I (0-0.04) ng/ml Total Protein (6.0-8.3) gm/dl Albumin (3.4-5.0) gm/dl Globulin (2.5-4.0) gm/dl Albumin/Globulin Ratio (0.9-2) Lipase (11-82) U/L Vitamin B12 Pending Procalcitonin 0.91 H (0-0.5) ng/ml Urine Color Urine Appearance (Clear) Urine pH (4.5-7.5) Ur Specific [place] (1.000-1.030) Urine Protein (Negative) Urine Glucose (UA) (Negative) Urine Ketones (Negative) Urine Blood (Negative) Urine Nitrite (Negative) Urine Bilirubin (Negative) Urine Urobilinogen (Negative) Ur Leukocyte Esterase (Negative) Urine WBC (Auto) (0-5) /hpf Urine RBC (Auto) (0-4) /hpf U Hyaline Cast (Auto) (0-5) /lpf U Epithel Cells (Auto) (0-5) /lpf Urine Bacteria (Auto) (Negative) Granular Casts (0) /lpf Urine Yeast SARS-CoV-2, RNA, NAAT (NEGATIVE) 09/02/21 09/02/21 09/02/21 Range/Units 08:11 08:11 07:12 WBC 9.83 (4.8-10.8) K/uL RBC 4.41 (4.2-5.4) M/uL Hgb 14.5 (12.0-16.0) g/dL Hct 43.4 (37-47) % MCV 98.4 (80-100) fL MCH 32.9 (25-34) pg MCHC 33.4 (32-36) g/dL RDW Std Deviation 49.3 H (36.4-46.3) fL RDW Coeff of Junie 13.8 (11.5-14.5) % Plt Count 163 (130-400) K/uL MPV 10.4 (7.4-10.4) fL Immature Gran % (Auto) 0.3 % Neut % (Auto) 84.8 % Lymph % (Auto) 9.2 % [place]arro % (Auto) 5.6 % Eos % (Auto) 0.0 % Baso % (Auto) 0.1 % Neut # (Auto) 8.34 H (1.4-6.5) K/uL Lymph # (Auto) 0.90 L (1.2-3.4) K/uL [place] # (Auto) 0.55 (0.11-0.59) K/uL Eos # (Auto) 0.00 (0-0.5) K/uL Baso # (Auto) 0.01 (0-0.2) K/uL Immature Gran # (Auto) 0.03 H (0.00-0.02) K/uL Sodium 141 (136-145) mmol/L Potassium 4.1 (3.5-5.1) mmol/L Chloride 110 H (98-107) mmol/L Carbon Dioxide 24 (21-32) mmol/L Anion Gap 7 (3-11) BUN 39 H (6-23) mg/dl Creatinine 0.73 D (0.6-1.2) mg/dl Est Cr Clr Drug Dosing 54.5 Est GFR ( Amer) 87.0 ml/min Est GFR (Non-Af Amer) 75.1 ml/min BUN/Creatinine Ratio 53.4 H (10-20) Glucose 200 H (70-99(Fasting)) mg/dl POC Glucose 193 H (70-99) mg/dl Estimat Average Glucose mg/dl Hemoglobin A1c (4.5-5.6) % Lactate (0.4-2.0) mmol/L Calcium 8.3 L (8.5-10.1) mg/dl Phosphorus 1.9 L (2.5-4.9) mg/dl Magnesium 1.6 L (1.7-2.4) mg/dl Total Bilirubin 0.8 (0.2-1.0) mg/dl AST 11 L (13-39) U/L ALT 9 (7-52) U/L Alkaline Phosphatase 30 L (34-104) U/L Troponin I (0-0.04) ng/ml Total Protein 5.3 L (6.0-8.3) gm/dl Albumin 3.2 L (3.4-5.0) gm/dl Globulin 2.1 L (2.5-4.0) gm/dl Albumin/Globulin Ratio 1.5 (0.9-2) Lipase (11-82) U/L Vitamin B12 Procalcitonin (0-0.5) ng/ml Urine Color Urine Appearance (Clear) Urine pH (4.5-7.5) Ur Specific [place] (1.000-1.030) Urine Protein (Negative) Urine Glucose (UA) (Negative) Urine Ketones (Negative) Urine Blood (Negative) Urine Nitrite (Negative) Urine Bilirubin (Negative) Urine Urobilinogen (Negative) Ur Leukocyte Esterase (Negative) Urine WBC (Auto) (0-5) /hpf Urine RBC (Auto) (0-4) /hpf U Hyaline Cast (Auto) (0-5) /lpf U Epithel Cells (Auto) (0-5) /lpf Urine Bacteria (Auto) (Negative) Granular Casts (0) /lpf Urine Yeast SARS-CoV-2, RNA, NAAT (NEGATIVE) 09/01/21 09/01/21 09/01/21 Range/Units 20:22 17:27 15:31 WBC (4.8-10.8) K/uL RBC (4.2-5.4) M/uL Hgb (12.0-16.0) g/dL Hct (37-47) % MCV (80-100) fL MCH (25-34) pg MCHC (32-36) g/dL RDW Std Deviation (36.4-46.3) fL RDW Coeff of Junie (11.5-14.5) % Plt Count (130-400) K/uL MPV (7.4-10.4) fL Immature Gran % (Auto) % Neut % (Auto) % Lymph % (Auto) % [place] % (Auto) % Eos % (Auto) % Baso % (Auto) % Neut # (Auto) (1.4-6.5) K/uL Lymph # (Auto) (1.2-3.4) K/uL [place] # (Auto) (0.11-0.59) K/uL Eos # (Auto) (0-0.5) K/uL Baso # (Auto) (0-0.2) K/uL Immature Gran # (Auto) (0.00-0.02) K/uL Sodium (136-145) mmol/L Potassium (3.5-5.1) mmol/L Chloride (98-107) mmol/L Carbon Dioxide (21-32) mmol/L Anion Gap (3-11) BUN (6-23) mg/dl Creatinine (0.6-1.2) mg/dl Est Cr Clr Drug Dosing Est GFR ( Amer) ml/min Est GFR (Non-Af Amer) ml/min BUN/Creatinine Ratio (10-20) Glucose (70-99(Fasting)) mg/dl POC Glucose 202 H (70-99) mg/dl Estimat Average Glucose mg/dl Hemoglobin A1c (4.5-5.6) % Lactate 1.7 (0.4-2.0) mmol/L Calcium (8.5-10.1) mg/dl Phosphorus (2.5-4.9) mg/dl Magnesium (1.7-2.4) mg/dl Total Bilirubin (0.2-1.0) mg/dl AST (13-39) U/L ALT (7-52) U/L Alkaline Phosphatase (34-104) U/L Troponin I < 0.03 (0-0.04) ng/ml Total Protein (6.0-8.3) gm/dl Albumin (3.4-5.0) gm/dl Globulin (2.5-4.0) gm/dl Albumin/Globulin Ratio (0.9-2) Lipase (11-82) U/L Vitamin B12 Procalcitonin (0-0.5) ng/ml Urine Color Urine Appearance (Clear) Urine pH (4.5-7.5) Ur Specific [place] (1.000-1.030) Urine Protein (Negative) Urine Glucose (UA) (Negative) Urine Ketones (Negative) Urine Blood (Negative) Urine Nitrite (Negative) Urine Bilirubin (Negative) Urine Urobilinogen (Negative) Ur Leukocyte Esterase (Negative) Urine WBC (Auto) (0-5) /hpf Urine RBC (Auto) (0-4) /hpf U Hyaline Cast (Auto) (0-5) /lpf U Epithel Cells (Auto) (0-5) /lpf Urine Bacteria (Auto) (Negative) Granular Casts (0) /lpf Urine Yeast SARS-CoV-2, RNA, NAAT (NEGATIVE) 09/01/21 09/01/21 09/01/21 Range/Units 15:31 13:09 12:26 WBC (4.8-10.8) K/uL RBC (4.2-5.4) M/uL Hgb (12.0-16.0) g/dL Hct (37-47) % MCV (80-100) fL MCH (25-34) pg MCHC (32-36) g/dL RDW Std Deviation (36.4-46.3) fL RDW Coeff of Junie (11.5-14.5) % Plt Count (130-400) K/uL MPV (7.4-10.4) fL Immature Gran % (Auto) % Neut % (Auto) % Lymph % (Auto) % [place] % (Auto) % Eos % (Auto) % Baso % (Auto) % Neut # (Auto) (1.4-6.5) K/uL Lymph # (Auto) (1.2-3.4) K/uL [place] # (Auto) (0.11-0.59) K/uL Eos # (Auto) (0-0.5) K/uL Baso # (Auto) (0-0.2) K/uL Immature Gran # (Auto) (0.00-0.02) K/uL Sodium (136-145) mmol/L Potassium (3.5-5.1) mmol/L Chloride (98-107) mmol/L Carbon Dioxide (21-32) mmol/L Anion Gap (3-11) BUN (6-23) mg/dl Creatinine (0.6-1.2) mg/dl Est Cr Clr Drug Dosing Est GFR ( Amer) ml/min Est GFR (Non-Af Amer) ml/min BUN/Creatinine Ratio (10-20) Glucose (70-99(Fasting)) mg/dl POC Glucose (70-99) mg/dl Estimat Average Glucose mg/dl Hemoglobin A1c (4.5-5.6) % Lactate 2.3 H* (0.4-2.0) mmol/L Calcium (8.5-10.1) mg/dl Phosphorus (2.5-4.9) mg/dl Magnesium (1.7-2.4) mg/dl Total Bilirubin (0.2-1.0) mg/dl AST (13-39) U/L ALT (7-52) U/L Alkaline Phosphatase (34-104) U/L Troponin I (0-0.04) ng/ml Total Protein (6.0-8.3) gm/dl Albumin (3.4-5.0) gm/dl Globulin (2.5-4.0) gm/dl Albumin/Globulin Ratio (0.9-2) Lipase (11-82) U/L Vitamin B12 Procalcitonin (0-0.5) ng/ml Urine Color Dark Yellow Urine Appearance Cloudy A (Clear) Urine pH 5.0 (4.5-7.5) Ur Specific [place] 1.030 (1.000-1.030) Urine Protein Trace H (Negative) Urine Glucose (UA) 3+ H (Negative) Urine Ketones Trace H (Negative) Urine Blood 3+ H (Negative) Urine Nitrite Negative (Negative) Urine Bilirubin 1+ H (Negative) Urine Urobilinogen Negative (Negative) Ur Leukocyte Esterase Trace H (Negative) Urine WBC (Auto) 10-30 H (0-5) /hpf Urine RBC (Auto) 5-10 H (0-4) /hpf U Hyaline Cast (Auto) 10-30 H (0-5) /lpf U Epithel Cells (Auto) 10-20 H (0-5) /lpf Urine Bacteria (Auto) 4+ H (Negative) Granular Casts 1-5 H (0) /lpf Urine Yeast Not Reportable SARS-CoV-2, RNA, NAAT NEGATIVE (NEGATIVE) 09/01/21 09/01/21 Range/Units 11:11 11:11 WBC 11.36 H (4.8-10.8) K/uL RBC 4.91 (4.2-5.4) M/uL Hgb 16.2 H (12.0-16.0) g/dL Hct 48.0 H (37-47) % MCV 97.8 (80-100) fL MCH 33.0 (25-34) pg MCHC 33.8 (32-36) g/dL RDW Std Deviation 47.9 H (36.4-46.3) fL RDW Coeff of Junie 13.6 (11.5-14.5) % Plt Count 206 (130-400) K/uL MPV 10.8 H (7.4-10.4) fL Immature Gran % (Auto) 0.4 % Neut % (Auto) 80.7 % Lymph % (Auto) 10.1 % [place] % (Auto) 8.0 % Eos % (Auto) 0.6 % Baso % (Auto) 0.2 % Neut # (Auto) 9.17 H (1.4-6.5) K/uL Lymph # (Auto) 1.15 L (1.2-3.4) K/uL [place] # (Auto) 0.91 H (0.11-0.59) K/uL Eos # (Auto) 0.07 (0-0.5) K/uL Baso # (Auto) 0.02 (0-0.2) K/uL Immature Gran # (Auto) 0.04 H (0.00-0.02) K/uL Sodium 139 (136-145) mmol/L Potassium 4.3 (3.5-5.1) mmol/L Chloride 104 (98-107) mmol/L Carbon Dioxide 25 (21-32) mmol/L Anion Gap 10 (3-11) BUN 47 H (6-23) mg/dl Creatinine 1.09 (0.6-1.2) mg/dl Est Cr Clr Drug Dosing Not Reportable Est GFR ( Amer) 53.6 ml/min Est GFR (Non-Af Amer) 46.3 ml/min BUN/Creatinine Ratio 43.1 H (10-20) Glucose 259 H (70-99(Fasting)) mg/dl POC Glucose (70-99) mg/dl Estimat Average Glucose mg/dl Hemoglobin A1c (4.5-5.6) % Lactate (0.4-2.0) mmol/L Calcium 8.9 (8.5-10.1) mg/dl Phosphorus (2.5-4.9) mg/dl Magnesium (1.7-2.4) mg/dl Total Bilirubin 1.2 H (0.2-1.0) mg/dl AST 12 L (13-39) U/L ALT 9 (7-52) U/L Alkaline Phosphatase 30 L (34-104) U/L Troponin I (0-0.04) ng/ml Total Protein 5.7 L (6.0-8.3) gm/dl Albumin 3.5 (3.4-5.0) gm/dl Globulin 2.2 L (2.5-4.0) gm/dl Albumin/Globulin Ratio 1.6 (0.9-2) Lipase 16 (11-82) U/L Vitamin B12 Procalcitonin (0-0.5) ng/ml Urine Color Urine Appearance (Clear) Urine pH (4.5-7.5) Ur Specific [place] (1.000-1.030) Urine Protein (Negative) Urine Glucose (UA) (Negative) Urine Ketones (Negative) Urine Blood (Negative) Urine Nitrite (Negative) Urine Bilirubin (Negative) Urine Urobilinogen (Negative) Ur Leukocyte Esterase (Negative) Urine WBC (Auto) (0-5) /hpf Urine RBC (Auto) (0-4) /hpf U Hyaline Cast (Auto) (0-5) /lpf U Epithel Cells (Auto) (0-5) /lpf Urine Bacteria (Auto) (Negative) Granular Casts (0) /lpf Urine Yeast SARS-CoV-2, RNA, NAAT (NEGATIVE) Diagnostic Findings Abdomen/Pelvis CT 09/01/21 10:53 CT SCAN OF THE ABDOMEN AND PELVIS WITH IV CONTRAST CLINICAL HISTORY: Generalized abdominal pain. Nausea and vomiting. Diarrhea. COMPARISON STUDY: Abdominal CT dated 06/06/2021. TECHNIQUE: Following the IV administration of 94 cc of Optiray 320, CT scan of the abdomen and pelvis is performed from the lung bases to the proximal femora. Images are reviewed in the axial, sagittal, and coronal planes. IV contrast was administered without complication. A dose lowering technique was utilized adhering to the principles of ALARA. The examination is compromised by motion artifact. CT DOSE: 513.35 mGy.cm FINDINGS: Lung bases: The heart is mildly enlarged and without pericardial effusion. There is a small hiatal hernia. There is multifocal airspace consolidation seen at both lung bases, right greater than left. No pleural effusion is identified. An 8 mm pleural-based nodule is again seen at the right lung base on image #1. Liver: The contrast-enhanced liver is normal in size, contour, and attenuation. There is moderate intrahepatic biliary ductal dilatation. The hepatic veins and portal veins are patent. Gallbladder: Surgically absent noting clips in the gallbladder fossa. The common bile duct is dilated measuring up to 1.6 cm in diameter. Spleen: Normal in size and attenuation. Pancreas: The pancreas is moderately atrophic and grossly unremarkable. Adrenal glands: Unremarkable. Kidneys: The contrast enhanced kidneys demonstrate cortical atrophy and are without hydronephrosis. The kidneys enhance symmetrically. Bilateral renal cysts measure up to 5.8 cm. Additional subcentimeter cortical hypodensities also likely represent cysts but are too small for definitive characterization. There are least 2 nonobstructing left renal calculi measuring up to 8mm. Abdominal vasculature: The abdominal aorta is normal in course and caliber noting mild atherosclerotic calcification. Bowel: A small gastric diverticulum is seen in the fundal region. There is no bowel obstruction. The appendix is not visualized. Peritoneum: No acute peritoneal free air is identified. There is a small volume of pelvic ascites. There is a small fat-containing umbilical hernia. Lymphadenopathy: None. Pelvic viscera: The bladder is normal as visualized. The uterus is surgically absent. No adnexal lesion is seen. Phleboliths are noted along the right gonadal vein. There is a fat-containing left inguinal hernia. Skeletal structures: The skeletal structures are osteopenic. There is moderate lumbosacral spondylosis. No lytic or blastic lesions are seen. IMPRESSION: 1. Multifocal airspace consolidation is seen at both lung bases. Correlate clinically for evidence of pneumonia/aspiration pneumonitis. Radiographic follow-up to resolution is recommended. 2. There is a small volume of free fluid in the pelvis which is a nonspecific but abnormal finding and may be reactive. 3. Left-sided nephrolithiasis. 4. Moderate intra and extra hepatic biliary ductal dilatation is similar to previous. 5. Cardiomegaly. 6. Additional findings as above. ACT 112: Negative or not required by law. Electronically signed by: Chandan Scott M.D. 09/01/2021 12:41 PM Chest X-Ray 09/01/21 14:26 SINGLE VIEW CHEST CLINICAL HISTORY: Pneumonia. FINDINGS: An AP, portable, upright chest radiograph is compared to study dated 06/06/2021 and correlated with abdominal CT performed the same day 09/01/2021. The heart is enlarged noting atherosclerotic calcification of the thoracic aorta. There is pulmonary vascular congestion. There is elevation of the right hemidiaphragm. Patchy airspace opacities are seen in the right mid to lower lung. No large pleural effusion or pneumothorax is identified. There are also minimal left basilar opacities. The skeletal structures are osteopenic. The bony thorax is grossly intact. Postoperative change is noted in the left humerus. Cholecystectomy clips are seen in the right upper quadrant. IMPRESSION: 1. Cardiomegaly with pulmonary vascular congestion. 2. Airspace opacities are seen in the right mid to lower lung, corresponding to the abnormality seen on today's abdominal CT. This could represent an infectious/inflammatory pneumonitis and/or pulmonary edema. Clinical correlation will be required and radiographic follow-up to resolution is recommended. ACT 112: Negative or not required by law. Electronically signed by: Chandan Scott M.D. 09/01/2021 3:23 PM PG Care Time/CCT Total # of Minutes Spent Total Time Spent with Patient: Total time spent is greater than 50% in coordination of care (as documented) at patient's floor/unit and/or counseling patient: Coding Level of Care Code 08823 Subseq Hosp Care Lvl 3 Diagnoses Septic shock A41.9; R65.21 Nausea vomiting and diarrhea R11.2; R19.7 Aspiration pneumonitis J69.0 Metabolic encephalopathy G93.41 Cystitis N30.90 Polymyalgia rheumatica M35.3 Chronic pain G89.29 Type 2 diabetes mellitus E11.9 Hyperlipidemia E78.5 Dementia F03.90 Dementia type: unspecified type Dementia behavioral disturbance: without behavioral disturbance Hypertension I10 Hypertension type: unspecified Vitamin D deficiency E55.9 Paroxysmal atrial fibrillation I48.0 B12 deficiency E53.8 (1) Dementia Dementia type: unspecified type Dementia behavioral disturbance: without behavioral disturbance Qualified Code(s): F03.90 - Unspecified dementia without behavioral disturbance (2) Hypertension Hypertension type: unspecified Qualified Code(s): I10 - Essential (primary) hypertension
[2021-09-02 08:29] LABS: Basophils # (auto) 0.01 K/uL (0-0.2); Basophils % (auto) 0.1 %; Hematocrit (blood only) 43.4 % (37-47); Hemoglobin 14.5 g/dL (12.0-16.0); Immature Granulocytes # (auto) 0.03 K/uL (0.00-0.02); Immature Granulocytes % (auto) 0.3 %; Lymphocytes % (auto) 9.2 %; Mean Corpuscular Hemoglobin 32.9 pg (25-34); Mean Corpuscular Hgb Conc 33.4 g/dL (32-36); Mean Corpuscular Volume 98.4 fL (80-100); Mean Platelet Volume 10.4 fL (7.4-10.4); Monocytes # (auto) 0.55 K/uL (0.11-0.59); Monocytes % (auto) 5.6 %; Neutrophils # (auto) 8.34 K/uL (1.4-6.5); Neutrophils % (auto) 84.8 %; Platelet Count 163 K/uL (130-400); RDW Coefficient of Variation 13.8 % (11.5-14.5); RDW Standard Deviation 49.3 fL (36.4-46.3); Red Blood Count 4.41 M/uL (4.2-5.4); White Blood Count 9.83 K/uL (4.8-10.8)
[2021-09-02 08:52] LABS: Estimated Average Glucose 177 mg/dl; Hemoglobin A1C 7.8 % (4.5-5.6)
[2021-09-02] MEDS: HYDROCORTISONE SOD 100 MG in SYRINGE 0 ML IV SCH ×2 (09:03→16:55)
[2021-09-02] MEDS: INSULIN GLARGINE SOLOSTAR 100 UNITS/ML 3 ML PEN SC SCH ×2 (09:03→19:53)
[2021-09-02] MEDS: CeleBREX 200 MG CAP PO SCH (09:04)
[2021-09-02] MEDS: ACETAMINOPHEN 325 MG TAB PO SCH ×3 (09:04→19:38)
[2021-09-02] MEDS: CHOLECALCIFEROL 1,000 UNITS 25 MCG TAB PO SCH (09:05)
[2021-09-02] MEDS: INSULIN ASPART PER UNIT SC SCH ×4 (09:09→19:52)
[2021-09-02 09:16] LABS: Albumin Globulin Ratio 1.5 (0.9-2); Albumin Level 3.2 gm/dl (3.4-5.0); BUN Creatinine Ratio 53.4 (10-20); Bilirubin,Total 0.8 mg/dl (0.2-1.0); Calcium 8.3 mg/dl (8.5-10.1); Creatinine Clr Calc Pharmacy 54.5 ml/min; Est GFR (Non-African American) 75.1 ml/min; Globulin 2.1 gm/dl (2.5-4.0); Magnesium 1.6 mg/dl (1.7-2.4); Phosphorus 1.9 mg/dl (2.5-4.9); Potassium 4.1 mmol/L (3.5-5.1); Total Protein 5.3 gm/dl (6.0-8.3)
[2021-09-02] MEDS ORDERED: POTASSIUM PHOS 3 MMOL/1 ML INFUSION IV STA (09:25)
[2021-09-02] MEDS: MAGNESIUM SULFATE / D5W 1 GM/100 ML BAG IV SCH ×2 (09:42→12:09)
[2021-09-02] MEDS ORDERED: POTASSIUM PHOSPHATE 9 MMOL in SODIUM CHLORIDE 0.9% 250 ML IV ONE (10:00)
--- NOTE | 2021-09-02 11:27 | XCELERA ---
[id number]
[2021-09-02] MEDS ORDERED: VANCOMYCIN CONSULT ACTIVE PRN (12:26)
[2021-09-02] MEDS ORDERED: hydrALAZINE HCL 20 MG/ML VIAL IV PRN (12:28)
[2021-09-02] MEDS ORDERED: VANCOMYCIN HCL 1,750 MG in SODIUM CHLORIDE 0.9% 500 ML IV STA (12:33)
[2021-09-02] MEDS: CYANOCOBALAMIN 1000 MCG/ML VIAL IM SCH (17:11)
[2021-09-02] MEDS: DONEPEZIL HCL 10 MG TAB PO SCH (19:39)
[2021-09-02] MEDS: carvediloL 3.125 MG TAB PO SCH (19:39)
[2021-09-02] MEDS: ENOXAPARIN INJ 40 MG/0.4 ML SYR SQ SCH (19:39)
[2021-09-02] MEDS: SIMVASTATIN 20 MG TAB PO SCH (19:40)
[2021-09-02] MEDS: VANCOMYCIN HCL 750 MG in SODIUM CHLORIDE 0.9% 250 ML IV SCH (23:56)
[2021-09-03] MEDS: CEFEPIME 2,000 MG in SYRINGE 0 ML IV SCH ×3 (01:47→17:00)
[2021-09-03 04:25] LABS: Appearance Urine Cloudy (Clear); Bilirubin Urine Negative (Negative); Blood Urine 3+ (Negative); Color Urine Dark Yellow; Epithelial Cell Urine Auto >30 /lpf (0-5); Glucose Urine UA 2+ (Negative); Ketones Urine 1+ (Negative); Leukocyte Esterase Urine Negative (Negative); Nitrite Urine Negative (Negative); Protein Urine 1+ (Negative); Specific Gravity Urine 1.041 (1.000-1.030); Urobilinogen Urine Negative (Negative)
[2021-09-03] MEDS: HYDROCORTISONE SOD 75 MG in SYRINGE 0 ML IV SCH ×3 (04:35→20:48)
[2021-09-03 05:06] LABS: Bacteria Urine Automated 2+ (Negative); RBC Urine Automated >30 /hpf (0-4)
[2021-09-03 06:46] LABS: Hematocrit (blood only) 39.2 % (37-47); Hemoglobin 12.9 g/dL (12.0-16.0); Mean Corpuscular Hemoglobin 32.4 pg (25-34); Mean Corpuscular Hgb Conc 32.9 g/dL (32-36); Mean Corpuscular Volume 98.5 fL (80-100); Mean Platelet Volume 10.6 fL (7.4-10.4); Platelet Count 170 K/uL (130-400); RDW Coefficient of Variation 13.6 % (11.5-14.5); RDW Standard Deviation 48.9 fL (36.4-46.3); Red Blood Count 3.98 M/uL (4.2-5.4); White Blood Count 9.68 K/uL (4.8-10.8)
[2021-09-03 07:15] LABS: BUN Creatinine Ratio 60.9 (10-20); Calcium 8.7 mg/dl (8.5-10.1); Creatinine Clr Calc Pharmacy 62.6 ml/min; Est GFR (African American) 94.3 ml/min; Est GFR (Non-African American) 81.4 ml/min; Potassium 3.9 mmol/L (3.5-5.1)
[2021-09-03 07:30] LABS: Magnesium 1.9 mg/dl (1.7-2.4); Phosphorus 1.1 mg/dl (2.5-4.9)
[2021-09-03] MEDS ORDERED: POTASSIUM PHOS 3 MMOL/1 ML INFUSION IV STA (07:41)
[2021-09-03] MEDS ORDERED: SODIUM CHLORIDE 0.45 % 1,000 ML IV SCH (07:45)
--- NOTE | 2021-09-03 07:50 | Hospitalist Progress Note ---
Date of Service September 03, 2021 Assessment & Plan (1) Septic shock: Plan: Presents with nausea/vomiting/diarrhea, UTI, aspiration pneumonitis, and hypotension. Afebrile with mild leukocytosis (WBC 11k) Got 1 L EMS, 1.5L in ER. Lactic normalized after additional IVF Trop negative, EKG without acute ischemic changes Blood pressures in 60s systolic, improved after IVF and stress dose steroids --> currently 157/71 * Continue hydrocortisone 100mg IV Q8H for today --> decreased to 75mg Q8H for today and can resume usual prednisone 20mg daily in AM 1 additional L IVF 1/2NSS @ 80cc/hr for today for continued poor PO intake Blood cultures pending -- of note, abx given in ER PRIOR to being drawn --> / bottles with GPC in chains. Repeat blood cultures pending. Urine cx without growth, but UA did appear infected Continues on Cefepime, Vanco added 09/02 given GPC in blood cultures Repeat blood cultures pending Procal 0.91 WBC wnl, afebrile CTAP with b/l infiltrates of lungs, CXR with Airspace opacities are seen in the right mid to lower lung, corresponding to the abnormality seen on today's abdominal CT. This could represent an infectious/inflammatory pneumonitis and/or pulmonary edema. Clinical correlation will be required and radiographic follow- up to resolution is recommended. --> Repeat CXR with slight improvement in right mid/lower lung space opacity. FAVORS pneumonia --> Not hypoxic, mild occasional cough reported. If develops O2 requirement, add anaerobic coverage for aspiration pna Legionella urine pending given urinary/pulm symptoms and from [place] with other sick residents -->Stool PCR also ordered but yet to be collected, no further diarrhea reported ECHO -- LV systolic function is normal. No regional wma. Mild concentric LVH. EF 60- 65%. No significant valve pathology or valvular vegetation identified. No change from 06/2019 Kphos for low phos, worse on AM labs, given additional 21mmol K phos Continue to monitor (2) Nausea vomiting and diarrhea: Plan: Likely secondary to viral gastroenteritis as reports are that there are multiple other members of her personal skilled nursing sick with a similar illness Stool PCR when able to obtain -- did have BM evening 09/01 but not collected Zofran prn nausea Diet as tolerated -- not much appetite, but no further n/v reported Stress dose steroids for underlying adrenal insufficiency Checking legionella -- pending Monitor (3) Aspiration pneumonitis: Plan: Likely secondary to nausea/vomiting. Is not hypoxic at this time but does complain of a mild cough Remains afebrile at this time CT abdomen/pelvis with infiltrates at the bases of bilateral lungs CXR as above, BCx pending, sputum if able to produce O2 as needed to maintain sats -- 94% on RA currently Cefepime as above, add flagyl if develops O2 requirement (4) Metabolic encephalopathy: Plan: With lethargy likely secondary to adrenal insufficiency as well as septic shock Treating all as above Supportive care Improving, but still present B12 also checked --> LOW 153. IM replacement ordered while inpatient and would continue PO at d/c (5) Cystitis: Plan: With UTI as above although cx without growth?, ?abx prior to collection? Does have nonobstructing kidney stones on CT imaging but does not need urgent treatment, ?nidas if recurrent infections Tx pneumonia as above (6) Polymyalgia rheumatica: Plan: On chronic prednisone 20 mg daily, also takes tramadol Hold home tramadol Holding home prednisone while on IV hydrocortisone --> can resume in AM if BP remains stable and discontinue hydrocortisone Continue home Celebrex daily (7) Chronic pain: Plan: As above, with PMR and lumbar spine stenosis as cause of pain Hold home tramadol for encephalopathy Okay to continue home Celebrex (8) Type 2 diabetes mellitus: Plan: Blood glucose 256 on arrival Due to poor p.o. intake, will cut Lantus in half to 5 units twice daily for now, however with stress dose steroids this will likely increase Continue NovoLog supplemental insulin with meals and at bedtime goal range 100- 140, correction factor 35, carb coverage 15 If develops worsening hyperglycemia, may need to increase Lantus and NovoLog Hemoglobin A1c 7.7% in 06/2021, repeat 7.8 BSGs acceptable (9) Hyperlipidemia: Plan: Continue home simvastatin (10) Dementia: Plan: Supportive care Continue home donepezil (11) Hypertension: Plan: With hypotension as above Holding home carvedilol and lisinopril--> resumed carvedilol for rate control given paroxysmal afib 09/02, resumed lisinopril for this morning Hydralazine available prn if needed (12) Vitamin D deficiency: Plan: Continue home vitamin D (13) Paroxysmal atrial fibrillation: Plan: Lone perioperative A. fib in 2018, no recurrence since then BB resumed Not on AC MAGNESIUM 1.6 --> 2gm IV ordered, repeat 1.9 (14) B12 deficiency: Plan: checked d/t AMS/MCV 98.4 and patient reporting hx neuropathy LOW at 152 --> replacement ordered IM while inpatient, continue PO at d/c Plan: DVT prophylaxis -Lovenox SQ PT/OT consulted -- SNF vs [facility] at d/c? Admission and Anticipated Discharge Date Admission Date: September 01, 2021 Supervising Physician Co-Signing Physician Notes PA Supervision Note: I did not personally see or examine the patient today, but I verified all javier points of BOBBY Sanders's assessment and plan with the following exceptions/additions: None Subjective patient evaluated this morning. states feels "poor" but endorses improvement compared to days past improvement in abdominal pain and denies any further diarrhea at this time but would send for PCR if able occasional cough but states improved, not coughing up any sputum but discussed if able would send for culture discussed positive blood cultures and continued IV antibiotics for now No fever but reports feeling cold and had episode of incontinence No chest pain or shortness of breath. No nausea or vomiting. No issues reported per nursing staff. Questions/concerns addressed at this time. Review of Systems Review of Systems: All systems reviewed & are unremarkable except as noted in HPI & below Physical Exam Constitutional: WD/WN, vitals as above Eyes: PERRL, conjunctivae normal, anicteric sclerae ENMT: external ear and nose normal, oropharynx normal Neck: trachea midline, no thyromegaly Respiratory: normal respiratory effort and able to speak in complete sentences; no respiratory distress, no labored breathing and not tachypneic Auscultation: + diminished lung sounds (At the bases with associated crackles RML/RLL) on room air Cardiovascular: RRR, no m/r/g, trace b/l LE edema Chest (Breasts): Chest: normal inspection of chest Gastrointestinal (Abdomen): +BS, soft, non-tender Musculoskeletal: Extremities: extremities normal to inspection; no cyanosis and no clubbing Skin: multiple LE lesions, non-tender, no erythema/drainage, covered with optifoam Neurologic: moves all extremities and awake; no focal motor deficits Psychiatric: Orientation: alert, oriented to person, oriented to place and cooperative Eye Contact: + poor eye contact Genitourinary: no hodge Lymphatic: no lymphedema Results & Data Results & Data ([facility]) Vital Signs (Past 12 Hours) Vital Signs Temp Pulse Pulse Resp BP Pulse Ox 09/03/21 07:08 36.8 C 66 20 188/95 H 95 09/03/21 07:00 72 09/03/21 03:39 37.2 C 67 18 191/77 H 95 09/02/21 23:43 71 09/02/21 23:04 37.2 C 72 18 190/77 H 95 Laboratory Results 09/03/21 09/03/21 09/03/21 Range/Units 11:11 07:20 05:32 WBC (4.8-10.8) K/uL RBC (4.2-5.4) M/uL Hgb (12.0-16.0) g/dL Hct (37-47) % MCV (80-100) fL MCH (25-34) pg MCHC (32-36) g/dL RDW Std Deviation (36.4-46.3) fL RDW Coeff of Junie (11.5-14.5) % Plt Count (130-400) K/uL MPV (7.4-10.4) fL Sodium 142 (136-145) mmol/L Potassium 3.9 (3.5-5.1) mmol/L Chloride 113 H (98-107) mmol/L Carbon Dioxide 25 (21-32) mmol/L Anion Gap 4 (3-11) BUN 39 H (6-23) mg/dl Creatinine 0.64 (0.6-1.2) mg/dl Est Cr Clr Drug Dosing 62.6 ml/min Est GFR ( Amer) 94.3 ml/min Est GFR (Non-Af Amer) 81.4 ml/min BUN/Creatinine Ratio 60.9 H (10-20) Glucose 118 H (70-99(Fasting)) mg/dl POC Glucose 158 H 149 H (70-99) mg/dl Calcium 8.7 (8.5-10.1) mg/dl Phosphorus 1.1 L* (2.5-4.9) mg/dl Magnesium 1.9 (1.7-2.4) mg/dl Urine Color Urine Appearance (Clear) Urine pH (4.5-7.5) Ur Specific [place] (1.000-1.030) Urine Protein (Negative) Urine Glucose (UA) (Negative) Urine Ketones (Negative) Urine Blood (Negative) Urine Nitrite (Negative) Urine Bilirubin (Negative) Urine Urobilinogen (Negative) Ur Leukocyte Esterase (Negative) Urine WBC (Auto) (0-5) /hpf Urine RBC (Auto) (0-4) /hpf U Hyaline Cast (Auto) (0-5) /lpf U Epithel Cells (Auto) (0-5) /lpf Urine Bacteria (Auto) (Negative) Urine Yeast Urine Legionella Ag 09/03/21 09/03/21 09/03/21 Range/Units 05:32 04:02 04:02 WBC 9.68 (4.8-10.8) K/uL RBC 3.98 L (4.2-5.4) M/uL Hgb 12.9 (12.0-16.0) g/dL Hct 39.2 (37-47) % MCV 98.5 (80-100) fL MCH 32.4 (25-34) pg MCHC 32.9 (32-36) g/dL RDW Std Deviation 48.9 H (36.4-46.3) fL RDW Coeff of Junie 13.6 (11.5-14.5) % Plt Count 170 (130-400) K/uL MPV 10.6 H (7.4-10.4) fL Sodium (136-145) mmol/L Potassium (3.5-5.1) mmol/L Chloride (98-107) mmol/L Carbon Dioxide (21-32) mmol/L Anion Gap (3-11) BUN (6-23) mg/dl Creatinine (0.6-1.2) mg/dl Est Cr Clr Drug Dosing ml/min Est GFR ( Amer) ml/min Est GFR (Non-Af Amer) ml/min BUN/Creatinine Ratio (10-20) Glucose (70-99(Fasting)) mg/dl POC Glucose (70-99) mg/dl Calcium (8.5-10.1) mg/dl Phosphorus (2.5-4.9) mg/dl Magnesium (1.7-2.4) mg/dl Urine Color Dark Yellow Urine Appearance Cloudy A (Clear) Urine pH 5.0 (4.5-7.5) Ur Specific [place] 1.041 H (1.000-1.030) Urine Protein 1+ H (Negative) Urine Glucose (UA) 2+ H (Negative) Urine Ketones 1+ H (Negative) Urine Blood 3+ H (Negative) Urine Nitrite Negative (Negative) Urine Bilirubin Negative (Negative) Urine Urobilinogen Negative (Negative) Ur Leukocyte Esterase Negative (Negative) Urine WBC (Auto) 1-5 (0-5) /hpf Urine RBC (Auto) >30 H (0-4) /hpf U Hyaline Cast (Auto) 1-5 (0-5) /lpf U Epithel Cells (Auto) >30 H (0-5) /lpf Urine Bacteria (Auto) 2+ H (Negative) Urine Yeast Not Reportable Urine Legionella Ag Pending 09/02/21 09/02/21 Range/Units 19:50 16:10 WBC (4.8-10.8) K/uL RBC (4.2-5.4) M/uL Hgb (12.0-16.0) g/dL Hct (37-47) % MCV (80-100) fL MCH (25-34) pg MCHC (32-36) g/dL RDW Std Deviation (36.4-46.3) fL RDW Coeff of Junie (11.5-14.5) % Plt Count (130-400) K/uL MPV (7.4-10.4) fL Sodium (136-145) mmol/L Potassium (3.5-5.1) mmol/L Chloride (98-107) mmol/L Carbon Dioxide (21-32) mmol/L Anion Gap (3-11) BUN (6-23) mg/dl Creatinine (0.6-1.2) mg/dl Est Cr Clr Drug Dosing ml/min Est GFR ( Amer) ml/min Est GFR (Non-Af Amer) ml/min BUN/Creatinine Ratio (10-20) Glucose (70-99(Fasting)) mg/dl POC Glucose 129 H 170 H (70-99) mg/dl Calcium (8.5-10.1) mg/dl Phosphorus (2.5-4.9) mg/dl Magnesium (1.7-2.4) mg/dl Urine Color Urine Appearance (Clear) Urine pH (4.5-7.5) Ur Specific [place] (1.000-1.030) Urine Protein (Negative) Urine Glucose (UA) (Negative) Urine Ketones (Negative) Urine Blood (Negative) Urine Nitrite (Negative) Urine Bilirubin (Negative) Urine Urobilinogen (Negative) Ur Leukocyte Esterase (Negative) Urine WBC (Auto) (0-5) /hpf Urine RBC (Auto) (0-4) /hpf U Hyaline Cast (Auto) (0-5) /lpf U Epithel Cells (Auto) (0-5) /lpf Urine Bacteria (Auto) (Negative) Urine Yeast Urine Legionella Ag Diagnostic Findings Chest X-Ray 09/03/21 07:00 XR chest 1V portable CLINICAL HISTORY: follow up COMPARISON STUDY: Chest radiograph September 01, 2021. FINDINGS: Left humeral internal fixation is incidentally noted. No pneumothorax or pleural effusion is present. Cardiomegaly is unchanged. Left lung is clear. Right mid and lower lung airspace opacity has slightly improved. IMPRESSION: Slight improvement in right mid and lower lung airspace opacity. This favors pneumonia. ACT 112: Negative or not required by law. Electronically signed by: Enrrique Johns M.D. 09/03/2021 8:07 AM PG Care Time/CCT Total # of Minutes Spent Total Time Spent with Patient: Total time spent is greater than 50% in coordination of care (as documented) at patient's floor/unit and/or counseling patient: Coding Level of Care Code 10715 Subseq Hosp Care Lvl 3 Diagnoses Septic shock A41.9; R65.21 Nausea vomiting and diarrhea R11.2; R19.7 Aspiration pneumonitis J69.0 Metabolic encephalopathy G93.41 Cystitis N30.90 Polymyalgia rheumatica M35.3 Chronic pain G89.29 Type 2 diabetes mellitus E11.9 Hyperlipidemia E78.5 Dementia F03.90 Dementia behavioral disturbance: without behavioral disturbance Dementia type: unspecified type Hypertension I10 Hypertension type: unspecified Vitamin D deficiency E55.9 Paroxysmal atrial fibrillation I48.0 B12 deficiency E53.8 (1) Dementia Dementia behavioral disturbance: without behavioral disturbance Dementia type: unspecified type Qualified Code(s): F03.90 - Unspecified dementia without behavioral disturbance (2) Hypertension Hypertension type: unspecified Qualified Code(s): I10 - Essential (primary) hypertension
[2021-09-03] MEDS ORDERED: POTASSIUM PHOSPHATE 21 MMOL in SODIUM CHLORIDE 0.9% 500 ML IV ONE (08:00)
[2021-09-03] MEDS: CHOLECALCIFEROL 1,000 UNITS 25 MCG TAB PO SCH (08:05)
[2021-09-03] MEDS: ACETAMINOPHEN 325 MG TAB PO SCH ×3 (08:05→20:47)
[2021-09-03] MEDS: lisinopril 20 MG TAB PO SCH (08:05)
[2021-09-03] MEDS: CeleBREX 200 MG CAP PO SCH (08:05)
[2021-09-03] MEDS: CYANOCOBALAMIN 1000 MCG/ML VIAL IM SCH (08:05)
[2021-09-03] MEDS: carvediloL 3.125 MG TAB PO SCH ×2 (08:05→20:48)
--- NOTE | 2021-09-03 08:08 | XRay Report ---
XR chest 1V portable CLINICAL HISTORY: follow up COMPARISON STUDY: Chest radiograph September 01, 2021. FINDINGS: Left humeral internal fixation is incidentally noted. No pneumothorax or pleural effusion i s present. Cardiomegaly is unchanged. Left lung is clear. Right mid and lower lung airspace opacity h as slightly improved. IMPRESSION: Slight improvement in right mid and lower lung airspace opacity. This favors pneumonia. ACT 112: Negative or not required by law. Electronically signed by: Enrrique Johns M.D. 09/03/2021 8:07 AM
[2021-09-03] MEDS: INSULIN ASPART PER UNIT SC SCH ×4 (08:24→20:54)
[2021-09-03] MEDS: INSULIN GLARGINE SOLOSTAR 100 UNITS/ML 3 ML PEN SC SCH ×2 (08:25→20:49)
[2021-09-03] MEDS: VANCOMYCIN HCL 750 MG in SODIUM CHLORIDE 0.9% 250 ML IV SCH (12:48)
[2021-09-03] MEDS: DONEPEZIL HCL 10 MG TAB PO SCH (20:47)
[2021-09-03] MEDS: ENOXAPARIN INJ 40 MG/0.4 ML SYR SQ SCH (20:48)
[2021-09-03] MEDS: SIMVASTATIN 20 MG TAB PO SCH (20:49)
[2021-09-04] MEDS: VANCOMYCIN HCL 750 MG in SODIUM CHLORIDE 0.9% 250 ML IV SCH ×2 (00:07→14:13)
[2021-09-04] MEDS: CEFEPIME 2,000 MG in SYRINGE 0 ML IV SCH ×3 (03:24→20:44)
[2021-09-04] MEDS: HYDROCORTISONE SOD 75 MG in SYRINGE 0 ML IV SCH ×3 (03:24→20:44)
[2021-09-04] MEDS: INSULIN ASPART PER UNIT SC SCH ×4 (08:11→21:04)
[2021-09-04] MEDS: ACETAMINOPHEN 325 MG TAB PO SCH ×3 (08:12→20:46)
[2021-09-04] MEDS: CeleBREX 200 MG CAP PO SCH (08:12)
[2021-09-04] MEDS: carvediloL 3.125 MG TAB PO SCH ×2 (08:12→20:47)
[2021-09-04] MEDS: CHOLECALCIFEROL 1,000 UNITS 25 MCG TAB PO SCH (08:12)
[2021-09-04] MEDS: CYANOCOBALAMIN 1000 MCG/ML VIAL IM SCH (08:13)
[2021-09-04] MEDS: INSULIN GLARGINE SOLOSTAR 100 UNITS/ML 3 ML PEN SC SCH ×2 (08:13→20:45)
[2021-09-04] MEDS: lisinopril 20 MG TAB PO SCH (08:13)
[2021-09-04] MEDS ORDERED: VANCOMYCIN TROUGH ONE (11:30)
--- NOTE | 2021-09-04 15:33 | Pharmacy Report ---
Pharmacy Vanc AUC Short Note - Date of Service September 04, 2021 - Assessment & Plan Assessment 86 year old F receiving vancomycin for treatment of bacteremia. Pertinent microbiologic data includes: coag neg staph /09/01 and GPC in repeat cxs 09/03. Day # 3 of antimicrobial therapy. Of note, initial vanc level was reported as undetectably low despite no known interruptions in therapy. Repeat level was obtained prior to vanc dose being hung and resulted at a more convincing 8.4. Will utilize this level for dose adjustment. Plan Vancomycin * AUC/DUSTIN is the preferred PK/PD target for vancomycin * AUC guided dosing is effective and associated with decreased risk of nephrotoxicity compared to traditional trough targets * Trough level of 8.4 mcg/mL is not predicted to achieve target AUC/DUSTIN of 400- 600 mg/L.hr * Change to 1250 mg IV every 12 hours starting this evening at 2300 * This regimen is predicted to achieve target AUC/DUSTIN of 400-600 mg/L.hr and may be associated with a 13 % risk of nephrotoxicity * Trough or random level ordered for: 09/06/21 @1030 Pharmacy will continue to follow and will adjust dose/frequency as necessary. Thank you.
[2021-09-04] MEDS: ENOXAPARIN INJ 40 MG/0.4 ML SYR SQ SCH (20:45)
[2021-09-04] MEDS: SIMVASTATIN 20 MG TAB PO SCH (20:47)
[2021-09-04] MEDS: DONEPEZIL HCL 10 MG TAB PO SCH (20:47)
--- NOTE | 2021-09-04 21:19 | Hospitalist Progress Note ---
Date of Service September 04, 2021 Assessment & Plan (1) Septic shock: Plan: Presents with nausea/vomiting/diarrhea, UTI, aspiration pneumonitis, and hypotension. Afebrile with mild leukocytosis (WBC 11k) Got 1 L EMS, 1.5L in ER. Lactic normalized after additional IVF Trop negative, EKG without acute ischemic changes Blood pressures in 60s systolic, improved after IVF and stress dose steroids --> currently 157/71 * Continue hydrocortisone 100mg IV Q8H for today --> decreased to 75mg Q8H for today and can resume usual prednisone 20mg daily in AM 1 additional L IVF 1/2NSS @ 80cc/hr for today for continued poor PO intake Blood cultures pending -- of note, abx given in ER PRIOR to being drawn --> / bottles with GPC in chains. Repeat blood cultures pending. Urine cx without growth, but UA did appear infected Continues on Cefepime, Vanco added 09/02 given GPC in blood cultures Repeat blood cultures pending Procal 0.91 WBC wnl, afebrile CTAP with b/l infiltrates of lungs, CXR with Airspace opacities are seen in the right mid to lower lung, corresponding to the abnormality seen on today's abdominal CT. This could represent an infectious/inflammatory pneumonitis and/or pulmonary edema. Clinical correlation will be required and radiographic follow- up to resolution is recommended. --> Repeat CXR with slight improvement in right mid/lower lung space opacity. FAVORS pneumonia --> Not hypoxic, mild occasional cough reported. If develops O2 requirement, add anaerobic coverage for aspiration pna Legionella urine pending given urinary/pulm symptoms and from [place] with other sick residents -->Stool PCR also ordered but yet to be collected, no further diarrhea reported ECHO -- LV systolic function is normal. No regional wma. Mild concentric LVH. EF 60- 65%. No significant valve pathology or valvular vegetation identified. No change from 06/2019 recheck phos awaiting repeat cultures. Continue to monitor (2) Nausea vomiting and diarrhea: Plan: Likely secondary to viral gastroenteritis as reports are that there are multiple other members of her personal senior living sick with a similar illness Stool PCR when able to obtain -- did have BM evening 09/01 but not collected Zofran prn nausea Diet as tolerated -- not much appetite, but no further n/v reported Stress dose steroids for underlying adrenal insufficiency Checking legionella -- pending Monitor (3) Aspiration pneumonitis: Plan: Likely secondary to nausea/vomiting. Is not hypoxic at this time but does complain of a mild cough Remains afebrile at this time CT abdomen/pelvis with infiltrates at the bases of bilateral lungs CXR as above, BCx pending, sputum if able to produce O2 as needed to maintain sats -- 94% on RA currently Cefepime as above, add flagyl if develops O2 requirement (4) Metabolic encephalopathy: Plan: With lethargy likely secondary to adrenal insufficiency as well as septic shock Treating all as above Supportive care Improving, but still present B12 also checked --> LOW 153. IM replacement ordered while inpatient and would continue PO at d/c (5) Cystitis: Plan: With UTI as above although cx without growth?, ?abx prior to collection? Does have nonobstructing kidney stones on CT imaging but does not need urgent treatment, ?nidas if recurrent infections Tx pneumonia as above (6) Polymyalgia rheumatica: Plan: On chronic prednisone 20 mg daily, also takes tramadol Hold home tramadol Holding home prednisone while on IV hydrocortisone --> can resume in AM if BP remains stable and discontinue hydrocortisone Continue home Celebrex daily (7) Chronic pain: Plan: As above, with PMR and lumbar spine stenosis as cause of pain Hold home tramadol for encephalopathy Okay to continue home Celebrex (8) Type 2 diabetes mellitus: Plan: Blood glucose 256 on arrival Due to poor p.o. intake, will cut Lantus in half to 5 units twice daily for now, however with stress dose steroids this will likely increase Continue NovoLog supplemental insulin with meals and at bedtime goal range 100- 140, correction factor 35, carb coverage 15 If develops worsening hyperglycemia, may need to increase Lantus and NovoLog Hemoglobin A1c 7.7% in 06/2021, repeat 7.8 BSGs acceptable (9) Hyperlipidemia: Plan: Continue home simvastatin (10) Dementia: Plan: Supportive care Continue home donepezil (11) Hypertension: Plan: With hypotension as above Holding home carvedilol and lisinopril--> resumed carvedilol for rate control given paroxysmal afib 09/02, resumed lisinopril for this morning Hydralazine available prn if needed (12) Vitamin D deficiency: Plan: Continue home vitamin D (13) Paroxysmal atrial fibrillation: Plan: Lone perioperative A. fib in 2018, no recurrence since then BB resumed Not on AC MAGNESIUM 1.6 --> 2gm IV ordered, repeat 1.9 (14) B12 deficiency: Plan: checked d/t AMS/MCV 98.4 and patient reporting hx neuropathy LOW at 152 --> replacement ordered IM while inpatient, continue PO at d/c Plan: DVT prophylaxis -Lovenox SQ PT/OT consulted -- SNF vs H at d/c? Admission and Anticipated Discharge Date Admission Date: September 01, 2021 Subjective Patient reports no new complaints. Review of Systems Review of Systems: All systems reviewed & are unremarkable except as noted in HPI & below Physical Exam Physical Exam: Constitutional: WD/WN, vitals as above Eyes: PERRL, conjunctivae normal, anicteric sclerae ENMT: external ear and nose normal, oropharynx normal Neck: trachea midline, no thyromegaly Respiratory: normal respiratory effort and able to speak in complete sentences; no respiratory distress, no labored breathing and not tachypneic Auscultation: + diminished lung sounds (At the bases with associated crackles RML/RLL) on room air Cardiovascular: RRR, no m/r/g, trace b/l LE edema Chest (Breasts): Chest: normal inspection of chest Gastrointestinal (Abdomen): +BS, soft, non-tender Musculoskeletal: Extremities: extremities normal to inspection; no cyanosis and no clubbing Skin: multiple LE lesions, non-tender, no erythema/drainage, covered with optifoam Neurologic: moves all extremities and awake; no focal motor deficits Psychiatric: Orientation: alert, oriented to person, and cooperative Eye Contact: + poor eye contact Lymphatic: no lymphedema Results & Data Results & Data ([facility]) Vital Signs (Past 12 Hours) Vital Signs Temp Pulse Pulse Resp BP BP Pulse Ox 09/04/21 20:24 36.8 C 61 17 182/83 H 96 09/04/21 15:20 37.8 C H 66 16 176/74 H 96 09/04/21 11:07 37.1 C 67 20 154/77 H 96 PG Care Time/CCT Total # of Minutes Spent Total Time Spent with Patient: Total time spent is greater than 50% in coordination of care (as documented) at patient's floor/unit and/or counseling patient: Coding Level of Care Code 75943 Subseq Hosp Care Lvl 2 Diagnoses Septic shock A41.9; R65.21 Nausea vomiting and diarrhea R11.2; R19.7 Aspiration pneumonitis J69.0 Metabolic encephalopathy G93.41 Cystitis N30.90 Polymyalgia rheumatica M35.3 Chronic pain G89.29 Type 2 diabetes mellitus E11.9 Hyperlipidemia E78.5 Dementia F03.90 Dementia behavioral disturbance: without behavioral disturbance Dementia type: unspecified type Hypertension I10 Hypertension type: unspecified Vitamin D deficiency E55.9 Paroxysmal atrial fibrillation I48.0 B12 deficiency E53.8 Time Spent (min) 25 (1) Dementia Dementia behavioral disturbance: without behavioral disturbance Dementia type: unspecified type Qualified Code(s): F03.90 - Unspecified dementia without behavioral disturbance (2) Hypertension Hypertension type: unspecified Qualified Code(s): I10 - Essential (primary) hypertension
[2021-09-04] MEDS: VANCOMYCIN HCL 1,250 MG in SODIUM CHLORIDE 0.9% 250 ML IV SCH (22:44)
[2021-09-05] MEDS: CEFEPIME 2,000 MG in SYRINGE 0 ML IV SCH ×3 (01:59→18:11)
[2021-09-05] MEDS: ACETAMINOPHEN 325 MG TAB PO SCH ×4 (03:36→21:41)
[2021-09-05] MEDS: HYDROCORTISONE SOD 75 MG in SYRINGE 0 ML IV SCH ×3 (04:17→20:16)
[2021-09-05 06:40] LABS: Creatinine Clr Calc Pharmacy 71.1 ml/min; Est GFR (Non-African American) 84.5 ml/min
[2021-09-05] MEDS: INSULIN ASPART PER UNIT SC SCH ×4 (08:43→20:50)
[2021-09-05] MEDS: CeleBREX 200 MG CAP PO SCH (08:45)
[2021-09-05] MEDS: CHOLECALCIFEROL 1,000 UNITS 25 MCG TAB PO SCH (08:45)
[2021-09-05] MEDS: carvediloL 3.125 MG TAB PO SCH ×2 (08:45→21:41)
[2021-09-05] MEDS: lisinopril 20 MG TAB PO SCH (08:46)
[2021-09-05] MEDS: CYANOCOBALAMIN 1000 MCG/ML VIAL IM SCH (08:46)
[2021-09-05] MEDS: INSULIN GLARGINE SOLOSTAR 100 UNITS/ML 3 ML PEN SC SCH ×2 (08:46→21:41)
[2021-09-05] MEDS: VANCOMYCIN HCL 1,250 MG in SODIUM CHLORIDE 0.9% 250 ML IV SCH ×2 (11:29→23:59)
[2021-09-05] MEDS ORDERED: amLODIPine BESYLATE 5 MG TAB PO ONE (18:15)
--- NOTE | 2021-09-05 20:51 | Hospitalist Progress Note ---
Date of Service September 05, 2021 Assessment & Plan (1) Septic shock: Plan: Presents with nausea/vomiting/diarrhea, UTI, aspiration pneumonitis, and hypotension. Afebrile with mild leukocytosis (WBC 11k) Got 1 L EMS, 1.5L in ER. Lactic normalized after additional IVF Trop negative, EKG without acute ischemic changes Blood pressures in 60s systolic, improved after IVF and stress dose steroids --> currently 157/71 * transitioned hydrocortisone 100mg IV Q8H --> 75mg Q8H will stop after 09/05 and will continue prednisone 40 mg PO daily for 2 days, then resume usual prednisone 20mg daily in AM 1 additional L IVF 1/2NSS @ 80cc/hr for today for continued poor PO intake Blood cultures pending -- of note, abx given in ER PRIOR to being drawn --> 07/11 bottles with coag staph not lugd. Repeat blood cultures: 07/11 with coag staph not lugd. Urine cx without growth, but UA did appear infected Continues on Cefepime, Vanco added 09/02 given GPC in blood cultures will stop vanco; transition to ceftriaxone Procal 0.91 WBC wnl, afebrile CTAP with b/l infiltrates of lungs, CXR with Airspace opacities are seen in the right mid to lower lung, corresponding to the abnormality seen on today's abdominal CT. This could represent an infectious/inflammatory pneumonitis and/or pulmonary edema. Clinical correlation will be required and radiographic follow- up to resolution is recommended. --> Repeat CXR with slight improvement in right mid/lower lung space opacity. FAVORS pneumonia --> Not hypoxic, mild occasional cough reported. If develops O2 requirement, add anaerobic coverage for aspiration pna Legionella urine pending given urinary/pulm symptoms and from [place] with other sick residents -->Stool PCR also ordered but yet to be collected, no further diarrhea reported ECHO -- LV systolic function is normal. No regional wma. Mild concentric LVH. EF 60- 65%. No significant valve pathology or valvular vegetation identified. No change from 06/2019 recheck phos (2) Nausea vomiting and diarrhea: Plan: Likely secondary to viral gastroenteritis as reports are that there are multiple other members of her personal residential sick with a similar illness Stool PCR when able to obtain -- did have BM evening 09/01 but not collected Zofran prn nausea Diet as tolerated -- not much appetite, but no further n/v reported Stress dose steroids for underlying adrenal insufficiency Checking legionella -- pending Monitor (3) Aspiration pneumonitis: Plan: Likely secondary to nausea/vomiting. Is not hypoxic at this time but does complain of a mild cough Remains afebrile at this time CT abdomen/pelvis with infiltrates at the bases of bilateral lungs CXR as above, BCx pending, sputum if able to produce O2 as needed to maintain sats -- 94% on RA currently Ceftriaxone as above, add flagyl if develops O2 requirement (4) Metabolic encephalopathy: Plan: With lethargy likely secondary to adrenal insufficiency as well as septic shock Treating all as above Supportive care Improving, but still present B12 also checked --> LOW 153. IM replacement ordered while inpatient and would continue PO at d/c (5) Cystitis: Plan: With UTI as above although cx without growth?, ?abx prior to collection? Does have nonobstructing kidney stones on CT imaging but does not need urgent treatment, ?nidas if recurrent infections Tx pneumonia as above (6) Polymyalgia rheumatica: Plan: On chronic prednisone 20 mg daily, also takes tramadol Hold home tramadol Holding home prednisone while on IV hydrocortisone --> can resume in AM if BP remains stable and discontinue hydrocortisone Continue home Celebrex daily (7) Chronic pain: Plan: As above, with PMR and lumbar spine stenosis as cause of pain Hold home tramadol for encephalopathy Okay to continue home Celebrex (8) Type 2 diabetes mellitus: Plan: Blood glucose 256 on arrival Due to poor p.o. intake, will cut Lantus in half to 5 units twice daily for now, however with stress dose steroids this will likely increase Continue NovoLog supplemental insulin with meals and at bedtime goal range 100-140, correction factor 35, carb coverage 15 If develops worsening hyperglycemia, may need to increase Lantus and NovoLog Hemoglobin A1c 7.7% in 06/2021, repeat 7.8 BSGs acceptable (9) Hyperlipidemia: Plan: Continue home simvastatin (10) Dementia: Plan: Supportive care Continue home donepezil (11) Hypertension: Plan: With hypotension as above Holding home carvedilol and lisinopril--> resumed carvedilol for rate control given paroxysmal afib 09/02, resumed lisinopril BP elevated, ordered one time dose of amlodipine PM. High BP may be due to steroids. will monitor, as steroids are tapered, BP may also improve. Hydralazine available prn if needed (12) Vitamin D deficiency: Plan: Continue home vitamin D (13) Paroxysmal atrial fibrillation: Plan: Lone perioperative A. fib in 2018, no recurrence since then BB resumed Not on AC MAGNESIUM 1.6 --> 2gm IV ordered, repeat 1.9 (14) B12 deficiency: Plan: checked d/t AMS/MCV 98.4 and patient reporting hx neuropathy LOW at 152 --> replacement ordered IM while inpatient, continue PO at d/c Plan: DVT prophylaxis -Lovenox SQ PT/OT consulted -- SNF vs [facility] at d/c? Admission and Anticipated Discharge Date Admission Date: September 01, 2021 Subjective Patient is comfortable, reports no new complaints. Poor apetite, nurse reports she did not eat anything today. Review of Systems Review of Systems: All systems reviewed & are unremarkable except as noted in HPI & below Physical Exam Physical Exam: Constitutional: WD/WN, vitals as above Eyes: PERRL, conjunctivae normal, anicteric sclerae ENMT: external ear and nose normal, oropharynx normal Neck: trachea midline, no thyromegaly Respiratory: normal respiratory effort and able to speak in complete sentences; no respiratory distress, no labored breathing and not tachypneic Auscultation: + diminished lung sounds (At the bases with associated crackles RML/RLL) on room air Cardiovascular: RRR, no m/r/g, trace b/l LE edema Chest (Breasts): Chest: normal inspection of chest Gastrointestinal (Abdomen): +BS, soft, non-tender Musculoskeletal: Extremities: extremities normal to inspection; no cyanosis and no clubbing Skin: multiple LE lesions, non-tender, no erythema/drainage, covered with optifoam Neurologic: moves all extremities and awake; no focal motor deficits Psychiatric: Orientation: alert, oriented to person, and cooperative Eye Contact: + poor eye contact Lymphatic: no lymphedema Results & Data Results & Data ([facility]) Vital Signs (Past 12 Hours) Vital Signs Temp Pulse Pulse Pulse Resp BP BP 09/05/21 19:21 36.9 C 78 18 104/72 09/05/21 16:00 60 09/05/21 15:14 37.0 C 61 17 187/81 H 09/05/21 11:36 36.8 C 55 L 16 175/77 H Pulse Ox 09/05/21 19:21 97 09/05/21 16:00 09/05/21 15:14 94 09/05/21 11:36 98 PG Care Time/CCT Total # of Minutes Spent Total Time Spent with Patient: Total time spent is greater than 50% in coordination of care (as documented) at patient's floor/unit and/or counseling patient: Coding Level of Care Code 79201 Subseq Hosp Care Lvl 3 Diagnoses Septic shock A41.9; R65.21 Nausea vomiting and diarrhea R11.2; R19.7 Aspiration pneumonitis J69.0 Metabolic encephalopathy G93.41 Cystitis N30.90 Polymyalgia rheumatica M35.3 Chronic pain G89.29 Type 2 diabetes mellitus E11.9 Hyperlipidemia E78.5 Dementia F03.90 Dementia behavioral disturbance: without behavioral disturbance Dementia type: unspecified type Hypertension I10 Hypertension type: unspecified Vitamin D deficiency E55.9 Paroxysmal atrial fibrillation I48.0 B12 deficiency E53.8 (1) Dementia Dementia behavioral disturbance: without behavioral disturbance Dementia type: unspecified type Qualified Code(s): F03.90 - Unspecified dementia without behavioral disturbance (2) Hypertension Hypertension type: unspecified Qualified Code(s): I10 - Essential (primary) hypertension
[2021-09-05] MEDS: DONEPEZIL HCL 10 MG TAB PO SCH (21:41)
[2021-09-05] MEDS: SIMVASTATIN 20 MG TAB PO SCH (21:41)
[2021-09-05] MEDS: ENOXAPARIN INJ 40 MG/0.4 ML SYR SQ SCH (21:41)
[2021-09-06] MEDS: CEFEPIME 2,000 MG in SYRINGE 0 ML IV SCH (02:25)
[2021-09-06] MEDS: ACETAMINOPHEN 325 MG TAB PO SCH ×4 (02:57→20:42)
[2021-09-06] MEDS: carvediloL 3.125 MG TAB PO SCH ×2 (08:56→20:36)
[2021-09-06] MEDS: CeleBREX 200 MG CAP PO SCH (08:57)
[2021-09-06] MEDS: INSULIN GLARGINE SOLOSTAR 100 UNITS/ML 3 ML PEN SC SCH ×2 (08:59→20:42)
[2021-09-06] MEDS: CHOLECALCIFEROL 1,000 UNITS 25 MCG TAB PO SCH (08:59)
[2021-09-06] MEDS: lisinopril 20 MG TAB PO SCH (09:00)
[2021-09-06] MEDS ORDERED: cefTRIAXone SODIUM 2,000 MG in DEXTROSE 5% 50 ML IV SCH (09:00)
[2021-09-06] MEDS: predniSONE 20 MG TAB PO SCH (09:01)
[2021-09-06] MEDS: INSULIN ASPART PER UNIT SC SCH ×4 (09:04→20:42)
--- NOTE | 2021-09-06 09:14 | Hospitalist Progress Note ---
Date of Service September 06, 2021 Assessment & Plan (1) Septic shock: Plan: Presented with nausea/vomiting/diarrhea, UTI, aspiration pneumonitis, and hypotension. Blood pressures in 60s systolic, improved after IVF and stress dose steroids --> currently 157/71 * transitioned hydrocortisone 100mg IV Q8H --> 75mg Q8H will stop after 09/05 and will continue prednisone 40 mg PO daily for 2 days, then resume usual prednisone 20mg daily in AM Blood cultures pending -- of note, abx given in ER PRIOR to being drawn --> 07/11 bottles with coag staph not lugd. blood cultures 09/01;09/03: with coag staph not lugd. 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 This could represent an infectious/inflammatory pneumonitis and/or pulmonary edema. --> Repeat CXR with slight improvement in right mid/lower lung space opacity. FAVORS pneumonia Legionella urine pending given urinary/pulm symptoms and from [place] with other sick residents -->Stool PCR also ordered but yet to be collected, no further diarrhea reported ECHO -- LV systolic function is normal. No regional wma. Mild concentric LVH. EF 60- 65%. No significant valve pathology or valvular vegetation identified. No change from 06/2019 (2) Nausea vomiting and diarrhea: Plan: Likely secondary to viral gastroenteritis as reports are that there are multiple other members of her personal nursing home sick with a similar illness Stool PCR when able to obtain -- did have BM evening 09/01 but not collected Zofran prn nausea Diet as tolerated -- not much appetite, but no further n/v reported Stress dose steroids for underlying adrenal insufficiency Checking legionella -- pending Monitor (3) Aspiration pneumonitis: Plan: Likely secondary to nausea/vomiting. Is not hypoxic at this time but does complain of a mild cough Remains afebrile at this time CT abdomen/pelvis with infiltrates at the bases of bilateral lungs CXR as above, BCx pending, sputum if able to produce O2 as needed to maintain sats -- 94% on RA currently Ceftriaxone as above, add flagyl if develops O2 requirement (4) Metabolic encephalopathy: Plan: With lethargy likely secondary to adrenal insufficiency as well as septic shock Treating all as above Supportive care Improving, but still present B12 also checked --> LOW 153. IM replacement ordered while inpatient and would continue PO at d/c (5) Cystitis: Plan: Does have nonobstructing kidney stones on CT imaging but does not need urgent treatment, ?nidas if recurrent infections Tx pneumonia as above (6) Polymyalgia rheumatica: Plan: On chronic prednisone 20 mg daily, also takes tramadol Hold home tramadol Holding home prednisone while on IV hydrocortisone --> can resume in AM if BP remains stable and discontinue hydrocortisone Continue home Celebrex daily (7) Chronic pain: Plan: As above, with PMR and lumbar spine stenosis as cause of pain Hold home tramadol for encephalopathy Okay to continue home Celebrex (8) Type 2 diabetes mellitus: Plan: Blood glucose 256 on arrival Due to poor p.o. intake, will cut Lantus in half to 5 units twice daily for now, however with stress dose steroids this will likely increase Continue NovoLog supplemental insulin with meals and at bedtime goal range 100- 140, correction factor 35, carb coverage 15 If develops worsening hyperglycemia, may need to increase Lantus and NovoLog Hemoglobin A1c 7.7% in 06/2021, repeat 7.8 BSGs acceptable (9) Hyperlipidemia: Plan: Continue home simvastatin (10) Dementia: Plan: Supportive care Continue home donepezil (11) Hypertension: Plan: resumed carvedilol for rate control given paroxysmal afib 09/02, resumed lisinopril Hydralazine available prn if needed (12) Vitamin D deficiency: Plan: Continue home vitamin D (13) Paroxysmal atrial fibrillation: Plan: Lone perioperative A. fib in 2017, no recurrence since then BB resumed Not on AC MAGNESIUM 1.6 --> 2gm IV ordered, repeat 1.9 (14) B12 deficiency: Plan: checked d/t AMS/MCV 98.4 and patient reporting hx neuropathy LOW at 152 --> replacement ordered IM while inpatient, continue PO at d/c Plan: DVT prophylaxis -Lovenox SQ PT/OT consulted -- Admission and Anticipated Discharge Date Admission Date: September 01, 2021 Subjective pt is without much focal complaints, discussion of antibiotics being used due to blood cultures showing coag negative staph Review of Systems Review of Systems: Mild distress and fatigue no headache, no visual changes no speech or swallowing issues no chest pain, pressure or palpitations no shortness of breath,non productive cough wheezes no abdominal pain, nausea or vomiting, diarrhea or constipation no dysuria, hematuria or frequency no focal joint pain or swelling no back pain, CVA tenderness or radicular pain no bruising, bleeding or rashes no focal signs of weakness or numbness or altered sensation no complaints of anxiety or depression.. Physical Exam Physical Exam: The patient appeared well nourished and normally developed. Vital signs as documented. Head exam is normocephalic atraumatic Neck is without JVD, thyromegaly, or carotid bruits. Lungs are diminished breath sounds at the bases with just above rales Cardiac exam, Rhythm is regular.. No murmurs, rubs or gallops. Abdominal exam reveals normal bowel sounds, soft non tender, no masses Extremities are nonedematous and both pedal pulses are present Neurologic exam is alert and oriented, no focal loss of strength or sensation Skin is without bruises or rashes Psychologically is without concerns for anxiety or depression.. Results & Data Results & Data ([facility]) Vital Signs (Past 12 Hours) Vital Signs Temp Pulse Resp BP Pulse Ox 09/06/21 07:53 98.6 F 60 12 172/76 H 95 09/05/21 21:56 99.0 F 63 16 170/74 H 93 PG Care Time/CCT Total # of Minutes Spent Total Time Spent with Patient: Total time spent is greater than 50% in coordination of care (as documented) at patient's floor/unit and/or counseling patient: Coding Level of Care Code 05648 Subseq Hosp Care Lvl 3 Diagnoses Septic shock A41.9; R65.21 Nausea vomiting and diarrhea R11.2; R19.7 Aspiration pneumonitis J69.0 Metabolic encephalopathy G93.41 Cystitis N30.90 Polymyalgia rheumatica M35.3 Chronic pain G89.29 Type 2 diabetes mellitus E11.9 Hyperlipidemia E78.5 Dementia F03.90 Dementia behavioral disturbance: without behavioral disturbance Dementia type: unspecified type Hypertension I10 Hypertension type: unspecified Vitamin D deficiency E55.9 Paroxysmal atrial fibrillation I48.0 B12 deficiency E53.8 (1) Dementia Dementia behavioral disturbance: without behavioral disturbance Dementia type: unspecified type Qualified Code(s): F03.90 - Unspecified dementia without behavioral disturbance (2) Hypertension Hypertension type: unspecified Qualified Code(s): I10 - Essential (primary) hypertension
[2021-09-06] MEDS: CYANOCOBALAMIN 1000 MCG/ML VIAL IM SCH (10:29)
[2021-09-06] MEDS ORDERED: VANCOMYCIN TROUGH ONE (10:30)
[2021-09-06 10:40] LABS: Hemoglobin 12.6 g/dL (12.0-16.0); Mean Corpuscular Hemoglobin 32.1 pg (25-34); Mean Corpuscular Volume 91.6 fL (80-100); Platelet Count 170 K/uL (130-400); RDW Coefficient of Variation 12.7 % (11.5-14.5); Red Blood Count 3.93 M/uL (4.2-5.4); White Blood Count 11.02 K/uL (4.8-10.8)
[2021-09-06 11:02] LABS: Albumin Globulin Ratio 1.6 (0.9-2); Bilirubin,Total 0.5 mg/dl (0.2-1.0); Calcium 9.5 mg/dl (8.5-10.1); Creatinine Clr Calc Pharmacy 59.6 ml/min; Est GFR (African American) 92.4 ml/min; Est GFR (Non-African American) 79.8 ml/min; Globulin 1.9 gm/dl (2.5-4.0); Magnesium 1.6 mg/dl (1.7-2.4); Phosphorus 1.8 mg/dl (2.5-4.9); Potassium 2.6 mmol/L (3.5-5.1); Total Protein 4.9 gm/dl (6.0-8.3)
[2021-09-06] MEDS: VANCOMYCIN HCL 1,250 MG in SODIUM CHLORIDE 0.9% 250 ML IV SCH ×2 (11:46→22:58)
[2021-09-06] MEDS: DONEPEZIL HCL 10 MG TAB PO SCH (20:37)
[2021-09-06] MEDS: SIMVASTATIN 20 MG TAB PO SCH (20:37)
[2021-09-06] MEDS: ENOXAPARIN INJ 40 MG/0.4 ML SYR SQ SCH (20:37)
[2021-09-07] MEDS: ACETAMINOPHEN 325 MG TAB PO SCH ×4 (03:04→20:02)
[2021-09-07 06:49] LABS: Creatinine Clr Calc Pharmacy 68.7 ml/min; Est GFR (African American) 96.9 ml/min; Est GFR (Non-African American) 83.6 ml/min
[2021-09-07] MEDS: carvediloL 3.125 MG TAB PO SCH ×2 (07:56→20:00)
[2021-09-07] MEDS: CHOLECALCIFEROL 1,000 UNITS 25 MCG TAB PO SCH (07:57)
[2021-09-07] MEDS: CeleBREX 200 MG CAP PO SCH (07:57)
[2021-09-07] MEDS: predniSONE 20 MG TAB PO SCH (07:58)
[2021-09-07] MEDS: lisinopril 20 MG TAB PO SCH (07:58)
[2021-09-07] MEDS: INSULIN GLARGINE SOLOSTAR 100 UNITS/ML 3 ML PEN SC SCH ×2 (07:59→21:46)
[2021-09-07] MEDS: INSULIN ASPART PER UNIT SC SCH ×4 (08:47→21:45)
--- NOTE | 2021-09-07 10:13 | Pharmacy Report ---
Pharmacy Vanc AUC Short Note - Date of Service September 07, 2021 - Assessment & Plan Assessment 86 year old F receiving Vancomycin 1250 mg IV q12h for treatment of Bacteremia with Coag neg staph- sensitive to only Vanco, Dapto, Tetracycline and Zyvox. Day #6 of antimicrobial therapy. Plan Vancomycin * AUC/DUSTIN is the preferred PK/PD target for vancomycin * AUC guided dosing is effective and associated with decreased risk of nephrotoxicity compared to traditional trough targets * Trough level of 16.2 mcg/mL is predicted to achieve target AUC/DUSTIN of 400-600 mg/L.hr and may be associated with a 10% risk of nephrotoxicity * Continue dose of Vancomycin 1250 mg IV every 12 hours Pharmacy will continue to follow and will adjust dose/frequency as necessary. Thank you.
[2021-09-07] MEDS: CYANOCOBALAMIN 1000 MCG/ML VIAL IM SCH (12:01)
[2021-09-07] MEDS: VANCOMYCIN HCL 1,250 MG in SODIUM CHLORIDE 0.9% 250 ML IV SCH ×2 (12:15→22:58)
[2021-09-07] MEDS: traMADol HCL 50 MG TABLET PO PRN (14:29)
--- NOTE | 2021-09-07 15:20 | Hospitalist Progress Note ---
Date of Service September 07, 2021 Assessment & Plan (1) Septic shock: Plan: Presented with nausea/vomiting/diarrhea, UTI, aspiration pneumonitis, and hypotension. Blood pressures initially in 60s systolic, improved after IVF and stress dose steroids --> currently normal * transitioned hydrocortisone 100mg IV Q8H --> 75mg Q8H and then prednisone 40 mg PO daily for 2 days, then resume usual prednisone 20mg daily in AM Blood cultures pending -- of note, abx given in ER PRIOR to being drawn --> 07/11 bottles with coag staph not lugd. blood cultures 09/01;09/03: with coag staph not lugd. Urine cx without growth, but UA did appear infected initially on Cefepime, Vanco added 09/02 given GPC in blood cultures will have vancomycin for 7 days thru 09/08 then complete a week of po zyvoxx for 14 day treatment of Methicillin resistant coag negative staph bacteremia associated with pneumonia CTAP with b/l infiltrates of lungs, CXR with Airspace opacities are seen in the right mid to lower lung, corresponding to the abnormality seen on abdominal CT. This could represent an infectious/inflammatory pneumonitis and/or pulmonary edema. --> Repeat CXR with slight improvement in right mid/lower lung space opacity. FAVORS pneumonia Legionella urine pending given urinary/pulm symptoms and from [place] with other sick residents -->Stool PCR also ordered but yet to be collected, no further diarrhea reported ECHO -- LV systolic function is normal. No regional wma. Mild concentric LVH. EF 60- 65%. No significant valve pathology or valvular vegetation identified. No change from 06/2019 (2) Nausea vomiting and diarrhea: Plan: Likely secondary to viral gastroenteritis as reports are that there are multiple other members of her personal group home sick with a similar illness Stool PCR when able to obtain -- did have BM evening 09/01 but not collected Zofran prn nausea Diet as tolerated -- not much appetite, but no further n/v reported Stress dose steroids for underlying adrenal insufficiency. Titrate down to usual oral dosage (3) Aspiration pneumonitis: Plan: Likely secondary to nausea/vomiting. Is not hypoxic at this time but had a mild cough Remains afebrile at this time CT abdomen/pelvis with infiltrates at the bases of bilateral lungs CXR as above, BCx pending, sputum if able to produce O2 as needed to maintain sats -- 94% on RA currently treated with Ceftriaxone (4) Metabolic encephalopathy: Plan: resolved (5) Cystitis: Plan: Does have nonobstructing kidney stones on CT imaging but does not need urgent treatment (6) Polymyalgia rheumatica: Plan: On chronic prednisone 20 mg daily. Also takes tramadol (7) Chronic pain: Plan: As above, with PMR and lumbar spine stenosis as cause of pain Held tramadol for encephalopathy temporarily Celebrex therapy (8) Type 2 diabetes mellitus: Plan: ADA diet. Lantus. SSI (9) Hyperlipidemia: Plan: simvastatin (10) Dementia: Plan: Supportive care Continue home donepezil (11) Hypertension: Plan: resumed carvedilol for rate control given paroxysmal afib 09/02, resumed lisinopril Hydralazine available prn if needed (12) Vitamin D deficiency: Plan: Continue home vitamin D (13) Paroxysmal atrial fibrillation: Plan: Lone perioperative A. fib in 2017, no recurrence since then BB resumed Not on AC MAGNESIUM 1.6 --> 2gm IV ordered, repeat 1.9 (14) B12 deficiency: Plan: checked d/t AMS/MCV 98.4 and patient reporting hx neuropathy LOW at 152 --> replacement ordered IM while inpatient, continue PO at d/c Plan: DVT prophylaxis -Lovenox SQ Disposition: SNF at discharge soon Admission and Anticipated Discharge Date Admission Date: September 01, 2021 Subjective Alert and pleasant. No distress. She is on intravenous vancomycin through September 08. Anticipate discharge to SNF facility soon. Review of Systems Review of Systems: Constitutional-no fever or chills ENT-no blurred vision, no double vision, no epistaxis, no sore throat Respiratory-no cough, no wheezing, no shortness of breath Cardiac-no palpitations, no chest pain, no syncope GI-no nausea, vomiting, diarrhea, melena, hematochezia -no urinary retention, no urinary incontinence, no dysuria, no hematuria Musculoskeletal-no joint pain, no muscle tenderness Skin-no bruising, no rashes, no pruritus Neuro-no isolated weakness, no paresthesia, no weakness Psych-no depression, no anxiety Physical Exam Physical Exam: General-alert and oriented x3, no fevers, no chills HEENT-head atraumatic and normocephalic, TMs intact bilaterally, pupils equal and reactive to light, extraocular muscles intact Neck-no lymphadenopathy or thyromegaly, trachea midline Chest-clear to auscultation percussion. No rales wheezing or rhonchi Cardiac-regular rate and rhythm, normal S1 and S2, no murmurs Abdomen-normal bowel sounds, nontender, no hepatosplenomegaly Extremities-no cyanosis, clubbing, or edema Neuro-cranial nerves II through XII intact, motor and sensory function within normal limits, strength symmetrical 5/5, no focal deficits Psych-normal affect, normal mood Results & Data Results & Data ([facility]) Vital Signs (Past 12 Hours) Vital Signs Temp Pulse Pulse Resp BP Pulse Ox 09/07/21 14:47 36.8 C 80 16 137/75 91 09/07/21 07:20 37.1 C 60 12 160/72 H 95 Laboratory Results 09/06/21 10:23 09/07/21 05:40 PG Care Time/CCT Total # of Minutes Spent Total Time Spent with Patient: Total time spent is greater than 50% in coordination of care (as documented) at patient's floor/unit and/or counseling patient: Coding Level of Care Code 42653 Subseq Hosp Care Lvl 3 Diagnoses Septic shock A41.9; R65.21 Nausea vomiting and diarrhea R11.2; R19.7 Aspiration pneumonitis J69.0 Metabolic encephalopathy G93.41 Cystitis N30.90 Polymyalgia rheumatica M35.3 Chronic pain G89.29 Type 2 diabetes mellitus E11.9 Hyperlipidemia E78.5 Dementia F03.90 Dementia type: unspecified type Dementia behavioral disturbance: without behavioral disturbance Hypertension I10 Hypertension type: unspecified Vitamin D deficiency E55.9 Paroxysmal atrial fibrillation I48.0 B12 deficiency E53.8 (1) Dementia Dementia type: unspecified type Dementia behavioral disturbance: without behavioral disturbance Qualified Code(s): F03.90 - Unspecified dementia without behavioral disturbance (2) Hypertension Hypertension type: unspecified Qualified Code(s): I10 - Essential (primary) hypertension
[2021-09-07] MEDS: SIMVASTATIN 20 MG TAB PO SCH (20:00)
[2021-09-07] MEDS: ENOXAPARIN INJ 40 MG/0.4 ML SYR SQ SCH (20:00)
[2021-09-07] MEDS: DONEPEZIL HCL 10 MG TAB PO SCH (20:00)
[2021-09-08] MEDS: ACETAMINOPHEN 325 MG TAB PO SCH ×4 (02:21→20:47)
[2021-09-08 07:37] LABS: Basophils # (auto) 0.01 K/uL (0-0.2); Basophils % (auto) 0.1 %; Eosinophils # (auto) 0.08 K/uL (0-0.5); Eosinophils % (auto) 0.9 %; Hemoglobin 12.1 g/dL (12.0-16.0); Immature Granulocytes # (auto) 0.04 K/uL (0.00-0.02); Immature Granulocytes % (auto) 0.4 %; Lymphocytes # (auto) 2.39 K/uL (1.2-3.4); Lymphocytes % (auto) 26.6 %; Mean Corpuscular Hemoglobin 32.5 pg (25-34); Mean Corpuscular Hgb Conc 35.6 g/dL (32-36); Mean Corpuscular Volume 91.4 fL (80-100); Mean Platelet Volume 9.7 fL (7.4-10.4); Monocytes # (auto) 1.11 K/uL (0.11-0.59); Monocytes % (auto) 12.3 %; Neutrophils # (auto) 5.37 K/uL (1.4-6.5); Neutrophils % (auto) 59.7 %; Platelet Count 241 K/uL (130-400); RDW Coefficient of Variation 13.1 % (11.5-14.5); RDW Standard Deviation 43.7 fL (36.4-46.3); Red Blood Count 3.72 M/uL (4.2-5.4)
[2021-09-08] MEDS: CeleBREX 200 MG CAP PO SCH (08:00)
[2021-09-08] MEDS: carvediloL 3.125 MG TAB PO SCH ×2 (08:00→20:47)
[2021-09-08] MEDS: predniSONE 20 MG TAB PO SCH (08:01)
[2021-09-08] MEDS: CHOLECALCIFEROL 1,000 UNITS 25 MCG TAB PO SCH (08:01)
[2021-09-08] MEDS: lisinopril 20 MG TAB PO SCH (08:01)
[2021-09-08 08:12] LABS: BUN Creatinine Ratio 27.7 (10-20); Calcium 8.9 mg/dl (8.5-10.1); Creatinine Clr Calc Pharmacy 62.4 ml/min; Est GFR (African American) 93.8 ml/min; Potassium 2.6 mmol/L (3.5-5.1)
[2021-09-08] MEDS ORDERED: POTASSIUM CHLORIDE / WTR 10 MEQ/100 ML PLCT IV ONE (09:00)
[2021-09-08] MEDS: INSULIN ASPART PER UNIT SC SCH ×4 (09:39→20:48)
[2021-09-08] MEDS: INSULIN GLARGINE SOLOSTAR 100 UNITS/ML 3 ML PEN SC SCH ×2 (09:41→20:47)
[2021-09-08] MEDS: POTASSIUM CHLORIDE CRTAB 20 MEQ TABCR PO SCH ×3 (11:42→20:47)
[2021-09-08] MEDS: VANCOMYCIN HCL 1,250 MG in SODIUM CHLORIDE 0.9% 250 ML IV SCH (12:48)
[2021-09-08] MEDS ORDERED: LINEZOLID CONSULT ACTIVE PRN (16:41)
[2021-09-08] MEDS ORDERED: POLYETHYLENE (MIRALAX) 17 GM PACK PO PRN (16:44)
[2021-09-08] MEDS ORDERED: POLYETHYLENE (MIRALAX) 17 GM PACK PO ONE (16:45)
--- NOTE | 2021-09-08 16:52 | Hospitalist Progress Note ---
Date of Service September 08, 2021 Assessment & Plan (1) Septic shock: Plan: Presented with nausea/vomiting/diarrhea, UTI, aspiration pneumonitis, and hypotension. Blood pressures initially in 60s systolic, improved after IVF and stress dose steroids --> currently normal * transitioned hydrocortisone 100mg IV Q8H --> 75mg Q8H and then prednisone 40 mg PO daily for 2 days, then resume usual prednisone 20mg daily in AM Blood cultures pending -- of note, abx given in ER PRIOR to being drawn --> 07/11 bottles with coag staph not lugd. blood cultures 09/01;09/03: with coag staph not lugd. (Could be contaminant but in multiple bottles thus will treat) Urine cx without growth, but UA did appear infected initially on Cefepime, Vanco added 09/02 given GPC in blood cultures Received IV vancomycin for 7 days through 09/08 with transition to p.o. zyvoxx for 14 day treatment of Methicillin resistant coag negative staph bacteremia ass ociated with pneumonia (as same bioavailability) CTAP with b/l infiltrates of lungs, CXR with Airspace opacities are seen in the right mid to lower lung, corresponding to the abnormality seen on abdominal CT. This could represent an infectious/inflammatory pneumonitis and/or pulmonary e robert. --> Repeat CXR with slight improvement in right mid/lower lung space opacity. FA VORS pneumonia Legionella urine pending given urinary/pulm symptoms and from [place] with other sick residents -->Stool PCR also ordered but yet to be collected, no further diarrhea reported ECHO -- LV systolic function is normal. No regional wma. Mild concentric LVH. EF 60- 65%. No significant valve pathology or valvular vegetation identified. No change from 06/2019 (2) Nausea vomiting and diarrhea: Plan: Likely secondary to viral gastroenteritis as reports are that there are multiple other members of her personal detention sick with a similar illness Stool PCR when able to obtain -- did have BM evening 09/01 but not collected Zofran prn nausea Diet as tolerated -- not much appetite, but no further n/v reported Stress dose steroids for underlying adrenal insufficiency. Titrate down to usual oral dosage Diarrhea has since resolved and she has not had a BM since coming in (09/01). As needed MiraLAX ordered (3) Aspiration pneumonitis: Plan: Likely secondary to nausea/vomiting. Is not hypoxic at this time but had a mild cough Remains afebrile at this time CT abdomen/pelvis with infiltrates at the bases of bilateral lungs CXR as above, BCx pending, sputum if able to produce O2 as needed to maintain sats -- 94% on RA currently treated with Ceftriaxone (4) Hypokalemia: Plan: Supplement with follow-up labs in a.m. to trend (5) Metabolic encephalopathy: Plan: resolvedlikely at baseline as presented obtunded (6) Cystitis: Plan: Does have nonobstructing kidney stones on CT imaging but does not need urgent treatment (7) Polymyalgia rheumatica: Plan: On chronic prednisone 20 mg daily. Also takes tramadol (8) Chronic pain: Plan: As above, with PMR and lumbar spine stenosis as cause of pain Held tramadol for encephalopathy temporarily Celebrex therapy (9) Type 2 diabetes mellitus: Plan: ADA diet. Lantus. SSI (10) Hyperlipidemia: Plan: simvastatin (11) Dementia: Plan: Supportive care Continue home donepezil (12) Hypertension: Plan: resumed carvedilol for rate control given paroxysmal afib 09/02, resumed lisinopril Hydralazine available prn if needed (13) Vitamin D deficiency: Plan: Continue home vitamin D (14) Paroxysmal atrial fibrillation: Plan: Lone perioperative A. fib in 2018, no recurrence since then BB resumed Not on AC MAGNESIUM 1.6 --> 2gm IV ordered, repeat 1.9 (15) B12 deficiency: Plan: checked d/t AMS/MCV 98.4 and patient reporting hx neuropathy LOW at 152 --> replacement ordered IM while inpatient, continue PO at d/c Plan: DVT prophylaxis -Lovenox SQ Disposition: SNF at discharge--is medically hemodynamically stable for discharge. Awaiting bed availability Admission and Anticipated Discharge Date Admission Date: September 01, 2021 Supervising Physician Co-Signing Physician Notes Attending Attestation - Chart reviewed, care plan d/w BOBBY Kaur. I agree with the javier components of her documentation. Abdiaziz Raya MD Subjective Patient seen on daily rounds today. Seems to be confused but stable per nursing staff. Seems to have a positive review of systems when asked but is an unr eliable historian. Nursing voices no complaints or concerns other than her not having a bowel movement for 3 days. Review of Systems Review of Systems: Question reliability given underlying dementia and conf usion. She has a positive review of systems Physical Exam Physical Exam: General: Resting comfortably in her hospital bed. Despite complaining of shortness of breath, she is breathing comfortably on ambient air. Does not appear ill or toxic NAD. HEENT: Head is AT/NC. Buccal mucosa is moist and pink Neck: No JVD. Negative hepatojugular reflex Cardiac: Seems to be in normal sinus rhythm with controlled rate and 2/6 murmur Lungs: Complains of shortness of breath but breathing comfortably on ambient a ir. Not hypoxic. No accessory muscle use. Good air exchange throughout without wheezes, rales or rhonchi Abdomen: Normoactive X4. Soft and nontender in all quadrants. Extremities: No peripheral clubbing cyanosis or edema Neuro: Is oriented to self but not to place, time, or situation. Cranial nerves II through XII are grossly intact. No focal neuro deficits Skin: No obvious skin lesions or rashes Psych: Confused/demented. Cooperative but seems annoyed. Results & Data Results & Data ([facility]) Vital Signs (Past 12 Hours) Vital Signs Temp Pulse Pulse Resp BP Pulse Ox 09/08/21 14:48 36.8 C 72 16 165/74 H 90 09/08/21 07:40 36.9 C 68 14 154/72 H 93 Diagnostic Findings 09/08/21 07:02 09/08/21 07:02 PG Care Time/CCT Total # of Minutes Spent Total Time Spent with Patient: Total time spent is greater than 50% in coordination of care (as documented) at patient's floor/unit and/or counseling patient: Coding Level of Care Code 15041 Subseq Hosp Care Lvl 3 Diagnoses Septic shock A41.9; R65.21 Nausea vomiting and diarrhea R11.2; R19.7 Aspiration pneumonitis J69.0 Metabolic encephalopathy G93.41 Cystitis N30.90 Polymyalgia rheumatica M35.3 Chronic pain G89.29 Type 2 diabetes mellitus E11.9 Hyperlipidemia E78.5 Dementia F03.90 Dementia behavioral disturbance: without behavioral disturbance Dementia type: unspecified type Hypertension I10 Hypertension type: unspecified Vitamin D deficiency E55.9 Paroxysmal atrial fibrillation I48.0 B12 deficiency E53.8 Hypokalemia E87.6 (1) Dementia Dementia behavioral disturbance: without behavioral disturbance Dementia type: unspecified type Qualified Code(s): F03.90 - Unspecified dementia without behavioral disturbance (2) Hypertension Hypertension type: unspecified Qualified Code(s): I10 - Essential (primary) hypertension
[2021-09-08] MEDS: DONEPEZIL HCL 10 MG TAB PO SCH (20:46)
[2021-09-08] MEDS: LINEZOLID 600 MG TAB PO SCH (20:47)
[2021-09-08] MEDS: SIMVASTATIN 20 MG TAB PO SCH (20:47)
[2021-09-08] MEDS: ENOXAPARIN INJ 40 MG/0.4 ML SYR SQ SCH (20:48)
[2021-09-09] MEDS: ACETAMINOPHEN 325 MG TAB PO SCH ×4 (03:33→20:58)
[2021-09-09 06:55] LABS: BUN Creatinine Ratio 27.3 (10-20); Calcium 9.7 mg/dl (8.5-10.1); Creatinine Clr Calc Pharmacy 73.7 ml/min; Est GFR (African American) 99.1 ml/min; Est GFR (Non-African American) 85.5 ml/min; Magnesium 1.7 mg/dl (1.7-2.4); Potassium 3.9 mmol/L (3.5-5.1)
[2021-09-09] MEDS: INSULIN ASPART PER UNIT SC SCH ×4 (08:30→20:53)
[2021-09-09] MEDS: CeleBREX 200 MG CAP PO SCH (08:30)
[2021-09-09] MEDS: carvediloL 3.125 MG TAB PO SCH ×2 (08:30→20:55)
[2021-09-09] MEDS: predniSONE 20 MG TAB PO SCH (08:31)
[2021-09-09] MEDS: INSULIN GLARGINE SOLOSTAR 100 UNITS/ML 3 ML PEN SC SCH ×2 (08:31→20:53)
[2021-09-09] MEDS: lisinopril 20 MG TAB PO SCH (08:31)
[2021-09-09] MEDS: LINEZOLID 600 MG TAB PO SCH ×2 (08:31→20:52)
[2021-09-09] MEDS: CHOLECALCIFEROL 1,000 UNITS 25 MCG TAB PO SCH (08:31)
[2021-09-09 10:16] LABS: Adenovirus F 40/41 PCR Not Detected (NotDetected); Astrovirus PCR Not Detected (NotDetected); Campylobacter PCR Not Detected (NotDetected); Cryptosporidium PCR Not Detected (NotDetected); Cyclospora cayetanensis PCR Not Detected (NotDetected); Entamoeba histolytica PCR Not Detected (NotDetected); Enteroaggregative E.coli(EAEC) Not Detected (NotDetected); Enteropathogenic E.coli (EPEC) Not Detected (NotDetected); Enterotoxigenic E.coli (ETEC) Not Detected (NotDetected); Giardia lamblia PCR Not Detected (NotDetected); Plesiomonas shigelloides PCR Not Detected (NotDetected); Rotavirus A PCR Not Detected (NotDetected); Salmonella PCR Not Detected (NotDetected); Sapovirus PCR Not Detected (NotDetected); Shiga-like Toxin E.coli (STEC) Not Detected (NotDetected); Shigella/Enteroinvasive E.coli Not Detected (NotDetected); Vibrio cholerae PCR Not Detected (NotDetected); Vibrio species PCR Not Detected (NotDetected); Yersinia enterocolitica PCR Not Detected (NotDetected)
[2021-09-09 11:41] LABS: Cdiff Antigen Positive; Cdiff Toxin A+B Negative Cdiff Toxin (Negative); Norovirus GI/GII PCR DETECTED (NotDetected)
--- NOTE | 2021-09-09 18:28 | Hospitalist Progress Note ---
Date of Service September 09, 2021 Assessment & Plan (1) Septic shock: Plan: Presented with nausea/vomiting/diarrhea, UTI, aspiration pneumonitis, and hypotension. Blood pressures initially in 60s systolic, improved after IVF and stress dose steroids --> currently normal * transitioned hydrocortisone 100mg IV Q8H --> 75mg Q8H and then prednisone 40 mg PO daily for 2 days, then resumed usual prednisone 20mg daily in AM Blood cultures ordered on admit -- of note, abx given in ER PRIOR to being drawn --> 07/11 bottles with coag staph not lugd. blood cultures 09/01 & 09/03: with coag staph not lugd. (Could be contaminant but in multiple bottles thus will treat) Urine cx without growth, but UA did appear infected initially on Cefepime, Vanco added 09/02 given GPC in blood cultures Received IV vancomycin for 7 days through 09/08 with transition to p.o. zyvox today (09/09) x 7 days for 14 day (total) treatment of Methicillin resistant coag negative staph bacteremia associated with pneumonia (as same bioavailability) CTAP with b/l infiltrates of lungs, CXR with Airspace opacities are seen in the right mid to lower lung, corresponding to the abnormality seen on abdominal CT. This could represent an infectious/inflammatory pneumonitis and/or pulmonary edema. --> Repeat CXR with slight improvement in right mid/lower lung space opacity. FAVORS pneumonia Legionella urine pending given urinary/pulm symptoms and from [place] with other sick residents -->positive for norovirus, removed roommate, pt now isolated ECHO --> LV systolic function is normal. No regional wma. Mild concentric LVH. EF 60- 65%. No significant valve pathology or valvular vegetation identified. No change from 06/2019 (2) Nausea vomiting and diarrhea: Plan: Secondary to viral gastroenteritis as reports are that there are multiple other members of her personal fpc sick with a similar illness--positive for norovirus Stool PCR when able to obtain -- did have BM evening 09/01 but not collected Zofran prn nausea Diet as tolerated -- not much appetite, but no further n/v reported Stress dose steroids for underlying adrenal insufficiency. Titrated down to usual oral Prednisone dosage Diarrhea has since resolved; formed BM today. Continue MiraLAX PRN (3) Aspiration pneumonitis: Plan: Likely secondary to nausea/vomiting. Is not hypoxic at this time but had a mild cough Remains afebrile at this time CT abdomen/pelvis with infiltrates at the bases of bilateral lungs CXR as above, BCx as above O2 as needed to maintain sats -- 94% on RA currently Treated with Cefepime and Vanco as outlined above (4) Hypokalemia: Plan: Supplemented and normalized today (5) Metabolic encephalopathy: Plan: Resolvedlikely at baseline as presented obtunded (6) Cystitis: Plan: Does have nonobstructing kidney stones on CT imaging but does not need urgent treatment (7) Polymyalgia rheumatica: Plan: On chronic prednisone 20 mg daily. Also takes tramadol (8) Chronic pain: Plan: As above, with PMR and lumbar spine stenosis as cause of pain Held tramadol for encephalopathy temporarily Celebrex therapy (9) Type 2 diabetes mellitus: Plan: ADA diet. Lantus. SSI (10) Hyperlipidemia: Plan: Simvastatin (11) Dementia: Plan: Supportive care Continue home donepezil (12) Hypertension: Plan: Resumed carvedilol for rate control given paroxysmal afib 09/02, resumed lisinopril Hydralazine available prn if needed (13) Vitamin D deficiency: Plan: Continue home vitamin D (14) Paroxysmal atrial fibrillation: Plan: Lone perioperative A. fib in 2018, no recurrence since then BB resumed Not on AC Mag level this AM is 1.7 (15) B12 deficiency: Plan: Checked d/t AMS/MCV 98.4 and patient reporting hx neuropathy LOW at 152 --> replacement ordered IM while inpatient, continue PO at d/c Plan: DVT prophylaxis: Lovenox SQ Disposition: SNF at discharge--is medically hemodynamically stable for disch arge. Awaiting bed availability Admission and Anticipated Discharge Date Admission Date: September 01, 2021 Subjective Patient seen on daily rounds today. Seems to be confused but stable per nursing staff. Nursing voices no complaints or concerns. She did have a BM today that was more formed per RN. Was notified by nursing that she tested positive for norovirus. Review of Systems Review of Systems: Unable to provide an accurate ROS. Denies c/o chest pain, dyspnea, cough, n/v/d, f/c, headache, or gu symptoms. Physical Exam Physical Exam: GENERAL: 86 yo elderly well-developed, well-nourished WF. NAD. LUNGS: Clear to auscultation bilaterally. No W/R/R. CARDIOVASCULAR: Regular rate and rhythm. ABDOMEN: Soft, non-tender and non-distended. BS normal x 4 quad. EXTREMITIES: No edema. Non-tender. Peripheral pulses +2/4. NEUROLOGIC: Drowsy but awakens easily and answers questions. Pleasantly confused. PSYCHIATRIC: Cooperative. Appropriate mood and affect. SKIN: Warm, dry, intact. No rashes or lesions. Results & Data Results & Data ([facility]) Vital Signs (Past 12 Hours) Vital Signs Temp Pulse Pulse Resp BP Pulse Ox 09/09/21 15:45 36.7 C 68 18 189/82 H 94 09/09/21 07:51 36.5 C 71 16 163/69 H 94 Laboratory Results 09/08/21 07:02 09/09/21 05:38 PG Care Time/CCT Total # of Minutes Spent Total Time Spent with Patient: Total time spent is greater than 50% in coordination of care (as documented) at patient's floor/unit and/or counseling patient: Coding Level of Care Code 06200 Subseq Hosp Care Lvl 2 Diagnoses Septic shock A41.9; R65.21 Nausea vomiting and diarrhea R11.2; R19.7 Aspiration pneumonitis J69.0 Hypokalemia E87.6 Metabolic encephalopathy G93.41 Cystitis N30.90 Polymyalgia rheumatica M35.3 Chronic pain G89.29 Type 2 diabetes mellitus E11.9 Hyperlipidemia E78.5 Dementia F03.90 Dementia type: unspecified type Dementia behavioral disturbance: without behavioral disturbance Hypertension I10 Hypertension type: unspecified Vitamin D deficiency E55.9 Paroxysmal atrial fibrillation I48.0 B12 deficiency E53.8 (1) Dementia Dementia type: unspecified type Dementia behavioral disturbance: without behavioral disturbance Qualified Code(s): F03.90 - Unspecified dementia without behavioral disturbance (2) Hypertension Hypertension type: unspecified Qualified Code(s): I10 - Essential (primary) hypertension
[2021-09-09] MEDS ORDERED: NITROGLYCERIN SL 0.4 MG/TAB TAB SL STA (20:02)
[2021-09-09] MEDS ORDERED: NITROGLYCERIN SL 0.4 MG/TAB TAB ONE (20:12)
[2021-09-09] MEDS: ENOXAPARIN INJ 40 MG/0.4 ML SYR SQ SCH (20:52)
[2021-09-09] MEDS: SIMVASTATIN 20 MG TAB PO SCH (20:52)
[2021-09-09] MEDS: DONEPEZIL HCL 10 MG TAB PO SCH (20:52)
[2021-09-09] MEDS ORDERED: NITROGLYCERIN 2% OINTMENT 30GM TUBE EXT ONE (21:02)
--- NOTE | 2021-09-09 21:28 | Communication Note ---
Date of Service: September 09, 2021 Called to assess the patient for chest pain not responsive to SL Nitro x1. Patient reports substernal constant chest pain that is extremely mild in nature; more of a "nuisance" than pain. Also reports that this pain has been "on and off" for some time. On exam patient has tenderness reproducible on palpation of sternum. EKG done with ST/T changes. Troponin negative. Suspect costochondritis. However will trend Troponin Q6H x2 given h/o PAF, HTN, T2DM and HLD, to more definitively r/o ACS. Pain is extremely mild but ongoing - patient's nurse will give PRN Tramadol for this pain.
[2021-09-10] MEDS: ACETAMINOPHEN 325 MG TAB PO SCH ×4 (03:18→21:23)
[2021-09-10 04:47] LABS: BUN Creatinine Ratio 28.8 (10-20); Calcium 8.9 mg/dl (8.5-10.1); Creatinine Clr Calc Pharmacy 61.4 ml/min; Est GFR (African American) 93.4 ml/min; Est GFR (Non-African American) 80.6 ml/min; Magnesium 1.7 mg/dl (1.7-2.4); Potassium 3.6 mmol/L (3.5-5.1)
[2021-09-10] MEDS: INSULIN ASPART PER UNIT SC SCH ×4 (08:40→21:20)
[2021-09-10] MEDS: carvediloL 3.125 MG TAB PO SCH ×2 (08:46→21:20)
[2021-09-10] MEDS: predniSONE 20 MG TAB PO SCH (08:46)
[2021-09-10] MEDS: LINEZOLID 600 MG TAB PO SCH ×2 (08:46→21:22)
[2021-09-10] MEDS: CHOLECALCIFEROL 1,000 UNITS 25 MCG TAB PO SCH (08:46)
[2021-09-10] MEDS: CeleBREX 200 MG CAP PO SCH (08:46)
[2021-09-10] MEDS: INSULIN GLARGINE SOLOSTAR 100 UNITS/ML 3 ML PEN SC SCH ×2 (08:46→21:21)
[2021-09-10] MEDS: lisinopril 20 MG TAB PO SCH (08:46)
[2021-09-10] MEDS: traMADol HCL 50 MG TABLET PO PRN ×2 (12:52→19:55)
--- NOTE | 2021-09-10 16:03 | Hospitalist Progress Note ---
Date of Service September 10, 2021 Assessment & Plan (1) Septic shock: Plan: Presented with nausea/vomiting/diarrhea, UTI, aspiration pneumonitis, and hypotension. * Blood pressures initially in 60s systolic, improved after IVF and stress dose steroids --> currently normal * transitioned hydrocortisone 100mg IV Q8H --> 75mg Q8H and then prednisone 40 mg PO daily for 2 days, then resumed usual prednisone 20mg daily in AM * Blood cultures ordered on admit -- of note, abx given in ER PRIOR to being drawn --> 07/11 bottles with coag staph not lugd. blood cultures 09/01 & 09/03: with coag staph not lugd. (Could be contaminant but in multiple bottles thus will treat) Urine cx without growth, but UA did appear infected * Initially on Cefepime, Vanco added 09/02 given GPC in blood cultures Received IV vancomycin for 7 days through 09/08 with transition to p.o. zyvox on 09/09 x 7 days for 14 day (total) treatment of Methicillin resistant coag negative staph bacteremia associated with pneumonia (as same bioavailability) * CTAP with b/l infiltrates of lungs, CXR with airspace opacities are seen in the right mid to lower lung, corresponding to the abnormality seen on abdominal CT. This could represent an infectious/inflammatory pneumonitis and/or pulmonary edema. --> Repeat CXR with slight improvement in right mid/lower lung space opacity. FAVORS pneumonia * Legionella urine ordered d/t urinary/pulm symptoms and from [place] with other sick residents which was negative * ECHO obtained--LV systolic function is normal. No regional wma. Mild concentric LVH. EF 60-65%. No significant valve pathology or valvular vegetation identified. No change from 06/2019 (2) Nausea vomiting and diarrhea: Plan: * Secondary to viral gastroenteritis as reports are that there are multiple other members of her personal custodial sick with a similar illness--positive for norovirus * Stool PCR when able to obtain -- did have BM evening 09/01 but not collected * Zofran prn nausea * Diet as tolerated -- not much appetite, but no further n/v reported * Stress dose steroids for underlying adrenal insufficiency. Titrated down to usual oral Prednisone dosage * Diarrhea has since resolved; Continue MiraLAX PRN (3) Aspiration pneumonitis: Plan: Likely secondary to nausea/vomiting. Is not hypoxic at this time but had a mild cough * Remains afebrile at this time * CT abdomen/pelvis with infiltrates at the bases of bilateral lungs * XR as above, BCx as above * O2 as needed to maintain sats -- 94% on RA currently * Treated with Cefepime and Vanco as outlined above (4) Hypokalemia: Plan: * Supplemented and resolved (5) Metabolic encephalopathy: Plan: * Resolved (6) Cystitis: Plan: * Does have nonobstructing kidney stones on CT imaging but does not need urgent treatment (7) Polymyalgia rheumatica: Plan: * On chronic prednisone 20 mg daily. Also takes tramadol (8) Chronic pain: Plan: * As above, with PMR and lumbar spine stenosis as cause of pain * Held tramadol for encephalopathy temporarily * Celebrex therapy (9) Type 2 diabetes mellitus: Plan: * ADA diet. Lantus. SSI (10) Hyperlipidemia: Plan: * Simvastatin (11) Dementia: Plan: * Supportive care * Continue home donepezil (12) Hypertension: Plan: * Resumed carvedilol for rate control given paroxysmal afib 09/02, resumed lisinopril * Hydralazine available prn if needed * BP well controlled at present (13) Vitamin D deficiency: Plan: * Continue home vitamin D (14) Paroxysmal atrial fibrillation: Plan: * Lone perioperative A. fib in 2018, no recurrence since then * BB resumed * Not on AC * Mag level this AM is 1.7 (15) B12 deficiency: Plan: * Checked d/t AMS/MCV 98.4 and patient reporting hx neuropathy * LOW at 152 --> replacement ordered IM while inpatient, continue PO at d/c Plan: DVT prophylaxis: Lovenox SQ Disposition: SNF at discharge--is medically hemodynamically stable for discharge. Awaiting bed availability Admission and Anticipated Discharge Date Admission Date: September 01, 2021 Subjective Patient seen on daily rounds today. She is awake, alert, and answers questions appropriately. She is reporting c/o pain in her wrist and throughout her body. Nursing has identified she has complained of this but then when they go in to re-evaluate her she is sleeping and appears comfortable. She has been medicated with APAP. She denies cp, dyspnea, cough, n/v/d, f/c, headache, or gu symptoms. Review of Systems Review of Systems: CONSTITUTIONAL: Denies weight loss/gain, fever and chills, fatigue, malaise, generalized weakness. HEENT: Denies changes in vision and hearing. RESPIRATORY: Denies SOB, cough, wheezing. CV: Denies palpitations, CP, lower extremity edema, orthopnea, PND. GI: Denies abdominal pain, nausea, vomiting and diarrhea. : Denies dysuria and urinary frequency, urgency, hesitancy. MUSCULOSKELETAL: Diffuse pain in different joints. SKIN: Denies rash and pruritus. NEUROLOGICAL: Denies headache, syncope, focal weakness, numbness, tingling. PSYCHIATRIC: Denies recent changes in mood. Denies anxiety and depression. Physical Exam Physical Exam: GENERAL: 86 yo elderly well-developed, well-nourished WF. NAD. LUNGS: Clear to auscultation bilaterally. No W/R/R. CARDIOVASCULAR: Regular rate and rhythm. ABDOMEN: Soft, non-tender and non-distended. BS normal x 4 quad. EXTREMITIES: No edema. Non-tender. Peripheral pulses +2/4. NEUROLOGIC: Awake, alert, oriented x2 at least, wouldn't answer me when i asked her what year it was PSYCHIATRIC: Cooperative. Appropriate mood and affect. SKIN: Warm, dry, intact. No rashes or lesions. Results & Data Results & Data ([facility]) Vital Signs (Past 12 Hours) Vital Signs Temp Pulse Resp BP Pulse Ox 09/10/21 15:21 36.6 C 72 16 123/74 93 09/10/21 07:44 36.9 C 76 16 150/73 H 91 Laboratory Results 09/08/21 07:02 09/10/21 03:57 PG Care Time/CCT Total # of Minutes Spent Total Time Spent with Patient: Total time spent is greater than 50% in coordination of care (as documented) at patient's floor/unit and/or counseling patient: Coding Level of Care Code 83866 Subseq Hosp Care Lvl 2 Diagnoses Septic shock A41.9; R65.21 Nausea vomiting and diarrhea R11.2; R19.7 Aspiration pneumonitis J69.0 Hypokalemia E87.6 Metabolic encephalopathy G93.41 Cystitis N30.90 Polymyalgia rheumatica M35.3 Chronic pain G89.29 Type 2 diabetes mellitus E11.9 Hyperlipidemia E78.5 Dementia F03.90 Dementia behavioral disturbance: without behavioral disturbance Dementia type: unspecified type Hypertension I10 Hypertension type: unspecified Vitamin D deficiency E55.9 Paroxysmal atrial fibrillation I48.0 B12 deficiency E53.8 (1) Dementia Dementia behavioral disturbance: without behavioral disturbance Dementia type: unspecified type Qualified Code(s): F03.90 - Unspecified dementia without behavioral disturbance (2) Hypertension Hypertension type: unspecified Qualified Code(s): I10 - Essential (primary) hypertension
[2021-09-10] MEDS: ENOXAPARIN INJ 40 MG/0.4 ML SYR SQ SCH (21:19)
[2021-09-10] MEDS: DONEPEZIL HCL 10 MG TAB PO SCH (21:20)
[2021-09-10] MEDS: SIMVASTATIN 20 MG TAB PO SCH (21:22)
[2021-09-11] MEDS: ACETAMINOPHEN 325 MG TAB PO SCH ×4 (03:22→21:13)
--- NOTE | 2021-09-11 06:40 | Electrocardiogram Report ---
Test Reason : Blood Pressure : / mmHG Vent. Rate : 076 BPM Atrial Rate : 076 BPM P-R Int : 132 ms QRS Dur : 106 ms QT Int : 386 ms P-R-T Axes : 050 -59 052 degrees QTc Int : 434 ms Normal sinus rhythm with sinus arrhythmia Left anterior fascicular block Moderate voltage criteria for LVH, may be normal variant Nonspecific T wave abnormality Abnormal ECG When compared with ECG of 01-SEP-2021 14:30, No significant change Confirmed by Andreas Amaya ([id number]) on 09/11/2021 6:40:13 AM Referred By: WALE Confirmed By:Andreas Amaya
[2021-09-11] MEDS: INSULIN GLARGINE SOLOSTAR 100 UNITS/ML 3 ML PEN SC SCH ×2 (08:13→21:08)
[2021-09-11] MEDS: INSULIN ASPART PER UNIT SC SCH ×4 (08:13→21:08)
[2021-09-11] MEDS: CeleBREX 200 MG CAP PO SCH (08:14)
[2021-09-11] MEDS: predniSONE 20 MG TAB PO SCH (08:14)
[2021-09-11] MEDS: LINEZOLID 600 MG TAB PO SCH ×2 (08:14→21:04)
[2021-09-11] MEDS: carvediloL 3.125 MG TAB PO SCH ×2 (08:14→21:03)
[2021-09-11] MEDS: CHOLECALCIFEROL 1,000 UNITS 25 MCG TAB PO SCH (08:14)
[2021-09-11] MEDS: lisinopril 20 MG TAB PO SCH (08:14)
--- NOTE | 2021-09-11 14:26 | Hospitalist Progress Note ---
Date of Service September 11, 2021 Assessment & Plan (1) Septic shock: Plan: Presented with nausea/vomiting/diarrhea, UTI, aspiration pneumonitis, and hypotension. * Blood pressures initially in 60s systolic, improved after IVF and stress dose steroids --> currently normal * transitioned hydrocortisone 100mg IV Q8H --> 75mg Q8H and then prednisone 40 mg PO daily for 2 days, then resumed usual prednisone 20mg daily in AM * Blood cultures ordered on admit -- of note, abx given in ER PRIOR to being drawn --> 07/11 bottles with coag staph not lugd. blood cultures 09/01 & 09/03: with coag staph not lugd. (Could be contaminant but in multiple bottles thus will treat) Blood cultures repeated today 09/11 to ensure no further growth Urine cx without growth, but UA did appear infected * Initially on Cefepime, Vanco added 09/02 given GPC in blood cultures Received IV vancomycin for 7 days through 09/08 with transition to p.o. zyvox on 09/09 x 7 days for 14 day (total) treatment of Methicillin resistant coag negative staph bacteremia associated with pneumonia (as same bioavailability) * CTAP with b/l infiltrates of lungs, CXR with airspace opacities are seen in the right mid to lower lung, corresponding to the abnormality seen on abdominal CT. This could represent an infectious/inflammatory pneumonitis and/or pulmonary edema. --> Repeat CXR with slight improvement in right mid/lower lung space opacity. FAVORS pneumonia * Legionella urine ordered d/t urinary/pulm symptoms and from [place] with other sick residents which was negative * ECHO obtained--LV systolic function is normal. No regional wma. Mild concentric LVH. EF 60-65%. No significant valve pathology or valvular vegetation identified. No change from 06/2019 (2) Nausea vomiting and diarrhea: Plan: * Secondary to viral gastroenteritis as reports are that there are multiple other members of her personal long term sick with a similar illness--positive for norovirus * Stool PCR when able to obtain -- did have BM evening 09/01 but not collected * Zofran prn nausea * Diet as tolerated -- not much appetite, but no further n/v reported * Stress dose steroids for underlying adrenal insufficiency. Titrated down to usual oral Prednisone dosage * Diarrhea has since resolved; Continue MiraLAX PRN (3) Aspiration pneumonitis: Plan: Likely secondary to nausea/vomiting. Is not hypoxic at this time but had a mild cough * Remains afebrile at this time * CT abdomen/pelvis with infiltrates at the bases of bilateral lungs * CXR as above, BCx as above * O2 as needed to maintain sats -- 94% on RA currently * Treated with Cefepime and Vanco as outlined above (4) Hypokalemia: Plan: * Supplemented and resolved (5) Metabolic encephalopathy: Plan: * Resolved (6) Cystitis: Plan: * Does have nonobstructing kidney stones on CT imaging but does not need urgent treatment (7) Polymyalgia rheumatica: Plan: * On chronic prednisone 20 mg daily. Also takes tramadol (8) Chronic pain: Plan: * As above, with PMR and lumbar spine stenosis as cause of pain * Held tramadol for encephalopathy temporarily * Celebrex therapy (9) Type 2 diabetes mellitus: Plan: * ADA diet. Lantus. SSI (10) Hyperlipidemia: Plan: * Simvastatin (11) Dementia: Plan: * Supportive care * Continue home donepezil (12) Hypertension: Plan: * Resumed carvedilol for rate control given paroxysmal afib 09/02, resumed lisinopril * Hydralazine available prn if needed * BP well controlled at present (13) Vitamin D deficiency: Plan: * Continue home vitamin D (14) Paroxysmal atrial fibrillation: Plan: * Lone perioperative A. fib in 2018, no recurrence since then * BB resumed * Not on AC * Mag level this AM is 1.7 (15) B12 deficiency: Plan: * Checked d/t AMS/MCV 98.4 and patient reporting hx neuropathy * LOW at 152 --> replacement ordered IM while inpatient, continue PO at d/c Plan: DVT prophylaxis: Lovenox SQ Disposition: SNF at discharge--is medically hemodynamically stable for discharge. Awaiting bed availability Admission and Anticipated Discharge Date Admission Date: September 01, 2021 Subjective Patient seen on daily rounds today. She is awake, alert, and answers questions appropriately. She denies cp, dyspnea, cough, n/v/d, f/c, headache, or gu sympto ms. No issues reported by nursing staff. Review of Systems Review of Systems: CONSTITUTIONAL: Denies weight loss/gain, fever and chills, fatigue, malaise, generalized weakness. HEENT: Denies changes in vision and hearing. RESPIRATORY: Denies SOB, cough, wheezing. CV: Denies palpitations, CP, lower extremity edema, orthopnea, PND. GI: Denies abdominal pain, nausea, vomiting and diarrhea. : Denies dysuria and urinary frequency, urgency, hesitancy. MUSCULOSKELETAL: Diffuse pain in different joints. SKIN: Denies rash and pruritus. NEUROLOGICAL: Denies headache, syncope, focal weakness, numbness, tingling. PSYCHIATRIC: Denies recent changes in mood. Denies anxiety and depression. Physical Exam Physical Exam: GENERAL: 86 yo elderly well-developed, well-nourished WF. NAD. LUNGS: Clear to auscultation bilaterally. No W/R/R. CARDIOVASCULAR: Regular rate and rhythm. ABDOMEN: Soft, non-tender and non-distended. BS normal x 4 quad. EXTREMITIES: No edema. Non-tender. Peripheral pulses +2/4. NEUROLOGIC: Awake, alert, oriented x2 at least, wouldn't answer me when i asked her what year it was PSYCHIATRIC: Cooperative. Appropriate mood and affect. SKIN: Warm, dry, intact. No rashes or lesions. Results & Data Results & Data ([facility]) Vital Signs (Past 12 Hours) Vital Signs Temp Pulse Resp BP Pulse Ox 09/11/21 07:42 36.9 C 68 16 167/74 H 92 PG Care Time/CCT Total # of Minutes Spent Total Time Spent with Patient: Total time spent is greater than 50% in coordination of care (as documented) at patient's floor/unit and/or counseling patient: Coding Level of Care Code 97921 Subseq Hosp Care Lvl 2 Diagnoses Septic shock A41.9; R65.21 Nausea vomiting and diarrhea R11.2; R19.7 Aspiration pneumonitis J69.0 Hypokalemia E87.6 Metabolic encephalopathy G93.41 Cystitis N30.90 Polymyalgia rheumatica M35.3 Chronic pain G89.29 Type 2 diabetes mellitus E11.9 Hyperlipidemia E78.5 Dementia F03.90 Dementia type: unspecified type Dementia behavioral disturbance: without behavioral disturbance Hypertension I10 Hypertension type: unspecified Vitamin D deficiency E55.9 Paroxysmal atrial fibrillation I48.0 B12 deficiency E53.8 (1) Dementia Dementia type: unspecified type Dementia behavioral disturbance: without behavioral disturbance Qualified Code(s): F03.90 - Unspecified dementia without behavioral disturbance (2) Hypertension Hypertension type: unspecified Qualified Code(s): I10 - Essential (primary) hypertension
[2021-09-11] MEDS: traMADol HCL 50 MG TABLET PO PRN (21:01)
[2021-09-11] MEDS: ENOXAPARIN INJ 40 MG/0.4 ML SYR SQ SCH (21:02)
[2021-09-11] MEDS: SIMVASTATIN 20 MG TAB PO SCH (21:03)
[2021-09-11] MEDS: DONEPEZIL HCL 10 MG TAB PO SCH (21:06)
[2021-09-12] MEDS: ACETAMINOPHEN 325 MG TAB PO SCH ×2 (04:17→08:53)
[2021-09-12] MEDS: carvediloL 3.125 MG TAB PO SCH (08:44)
[2021-09-12] MEDS: lisinopril 20 MG TAB PO SCH (08:44)
[2021-09-12] MEDS: CHOLECALCIFEROL 1,000 UNITS 25 MCG TAB PO SCH (08:45)
[2021-09-12] MEDS: LINEZOLID 600 MG TAB PO SCH (08:46)
[2021-09-12] MEDS: CeleBREX 200 MG CAP PO SCH (08:46)
[2021-09-12] MEDS: predniSONE 20 MG TAB PO SCH (08:46)
[2021-09-12] MEDS: INSULIN ASPART PER UNIT SC SCH (08:50)
[2021-09-12] MEDS: INSULIN GLARGINE SOLOSTAR 100 UNITS/ML 3 ML PEN SC SCH (08:50)
--- NOTE | 2021-09-12 09:35 | Discharge Summary ---
Date of Service September 12, 2021 Admission HPI Per Admitting Provider This patient is an 86-year-old female with a history of PMR on chronic prednisone, chronic pain, lone atrial fibrillation postoperatively, DM 2, HTN, dementia, nephrolithiasis, renal cysts, and recurrent UTIs who presents to the ER from her personal usp at the [facility] with nausea/vomiting/diarrhea for 2 to 3 days. She was also complaining of painful urination and has a history of recurrent UTI. She was noted to have a low blood pressure with systolics in the 60s and was given 1 L of fluids by EMS en route to the ED. She was noted to be drowsy and required sternal rub at times and was not feeling well, complained of abdominal pain. She had intermittent low blood pressures which are not recorded in the chart reportedly in the 70s to 80s that improved with another 1.5 L of normal saline in the ER. She was found to have possible aspiration pneumonitis on imaging as well as a UTI and was treated with IV cefepime. When I saw her, she was drowsy and kept her eyes closed but did answer my questions and was oriented. She denied shortness of breath but admits to a mild cough, and some pain in the chest with taking deep breaths. Also with lower abdominal pain and lightheadedness. Reports "I feel terrible." A lactate was not performed at the time of admission. Troponin was ordered and pending, ECG ordered and pending. Covid-19 test was negative. Chest x-ray ordered and pending at the time of admission. She will be admitted for septic shock in the setting of adrenal insufficiency and acute metabolic encephalopathy. Principal Diagnosis 1. Sepsis w/ shock -- resolved 2. Aspiration pna -- resolved 3. UTI -- resolved 4. Bacteremia -- resolved (completing abx therapy) 5. Norovirus w/ n/v/d -- resolved Discharge Exam GENERAL: 86 yo elderly well-developed, well-nourished WF. NAD. LUNGS: Clear to auscultation bilaterally. No W/R/R. CARDIOVASCULAR: Regular rate and rhythm. ABDOMEN: Soft, non-tender and non-distended. BS normal x 4 quad. EXTREMITIES: No edema. Non-tender. Peripheral pulses +2/4. NEUROLOGIC: Awake, alert, oriented x2 at least, wouldn't answer me when i asked her what year it was PSYCHIATRIC: Cooperative. Appropriate mood and affect. SKIN: Warm, dry, intact. No rashes or lesions. Discharge Data Allergies Allergy/AdvReac Type Severity Reaction Status Date / Time adhesive Allergy Intermediate SKIN Verified 09/01/21 12:42 BLISTERS tetanus toxoid, adsorbed Allergy Mild EDEMA AT Verified 09/01/21 12:42 SITE codeine AdvReac Intermediate HEART Verified 09/01/21 12:42 PALPITATIONS, RECIEVED MORPHINE IV IN 2004 ADMIT Consultations 09/01/21 14:11 ED Decision to Admit Stat Ordered Studies Abdomen/Pelvis CT 09/01/21 10:53 CT SCAN OF THE ABDOMEN AND PELVIS WITH IV CONTRAST CLINICAL HISTORY: Generalized abdominal pain. Nausea and vomiting. Diarrhea. COMPARISON STUDY: Abdominal CT dated 06/06/2021. TECHNIQUE: Following the IV administration of 94 cc of Optiray 320, CT scan of the abdomen and pelvis is performed from the lung bases to the proximal femora. Images are reviewed in the axial, sagittal, and coronal planes. IV contrast was administered without complication. A dose lowering technique was utilized adhering to the principles of ALARA. The examination is compromised by motion artifact. CT DOSE: 513.35 mGy.cm FINDINGS: Lung bases: The heart is mildly enlarged and without pericardial effusion. There is a small hiatal hernia. There is multifocal airspace consolidation seen at both lung bases, right greater than left. No pleural effusion is identified. An 8 mm pleural-based nodule is again seen at the right lung base on image #1. Liver: The contrast-enhanced liver is normal in size, contour, and attenuation. There is moderate intrahepatic biliary ductal dilatation. The hepatic veins and portal veins are patent. Gallbladder: Surgically absent noting clips in the gallbladder fossa. The common bile duct is dilated measuring up to 1.6 cm in diameter. Spleen: Normal in size and attenuation. Pancreas: The pancreas is moderately atrophic and grossly unremarkable. Adrenal glands: Unremarkable. Kidneys: The contrast enhanced kidneys demonstrate cortical atrophy and are without hydronephrosis. The kidneys enhance symmetrically. Bilateral renal cysts measure up to 5.8 cm. Additional subcentimeter cortical hypodensities also likely represent cysts but are too small for definitive characterization. There are least 2 nonobstructing left renal calculi measuring up to 8mm. Abdominal vasculature: The abdominal aorta is normal in course and caliber noting mild atherosclerotic calcification. Bowel: A small gastric diverticulum is seen in the fundal region. There is no bowel obstruction. The appendix is not visualized. Peritoneum: No acute peritoneal free air is identified. There is a small volume of pelvic ascites. There is a small fat-containing umbilical hernia. Lymphadenopathy: None. Pelvic viscera: The bladder is normal as visualized. The uterus is surgically absent. No adnexal lesion is seen. Phleboliths are noted along the right gonadal vein. There is a fat-containing left inguinal hernia. Skeletal structures: The skeletal structures are osteopenic. There is moderate lumbosacral spondylosis. No lytic or blastic lesions are seen. IMPRESSION: 1. Multifocal airspace consolidation is seen at both lung bases. Correlate clinically for evidence of pneumonia/aspiration pneumonitis. Radiographic follow-up to resolution is recommended. 2. There is a small volume of free fluid in the pelvis which is a nonspecific but abnormal finding and may be reactive. 3. Left-sided nephrolithiasis. 4. Moderate intra and extra hepatic biliary ductal dilatation is similar to previous. 5. Cardiomegaly. 6. Additional findings as above. ACT 112: Negative or not required by law. Electronically signed by: Chandan Scott M.D. 09/01/2021 12:41 PM Chest X-Ray 09/01/21 14:26 SINGLE VIEW CHEST CLINICAL HISTORY: Pneumonia. FINDINGS: An AP, portable, upright chest radiograph is compared to study dated 06/06/2021 and correlated with abdominal CT performed the same day 09/01/2021. The heart is enlarged noting atherosclerotic calcification of the thoracic aorta. There is pulmonary vascular congestion. There is elevation of the right hemidiaphragm. Patchy airspace opacities are seen in the right mid to lower lung. No large pleural effusion or pneumothorax is identified. There are also minimal left basilar opacities. The skeletal structures are osteopenic. The bony thorax is grossly intact. Postoperative change is noted in the left humerus. Cholecystectomy clips are seen in the right upper quadrant. IMPRESSION: 1. Cardiomegaly with pulmonary vascular congestion. 2. Airspace opacities are seen in the right mid to lower lung, corresponding to the abnormality seen on today's abdominal CT. This could represent an infectious/inflammatory pneumonitis and/or pulmonary edema. Clinical correlation will be required and radiographic follow-up to resolution is recommended. ACT 112: Negative or not required by law. Electronically signed by: Chandan Scott M.D. 09/01/2021 3:23 PM Chest X-Ray 09/03/21 07:00 XR chest 1V portable CLINICAL HISTORY: follow up COMPARISON STUDY: Chest radiograph September 01, 2021. FINDINGS: Left humeral internal fixation is incidentally noted. No pneumothorax or pleural effusion is present. Cardiomegaly is unchanged. Left lung is clear. Right mid and lower lung airspace opacity has slightly improved. IMPRESSION: Slight improvement in right mid and lower lung airspace opacity. This favors pneumonia. ACT 112: Negative or not required by law. Electronically signed by: Enrrique Johns M.D. 09/03/2021 8:07 AM Hospital Course (1) Septic shock: Presented with nausea/vomiting/diarrhea, UTI, aspiration pneumonitis, and hypotension. * Blood pressures initially in 60s systolic, improved after IVF and stress dose steroids --> currently normal * transitioned hydrocortisone 100mg IV Q8H --> 75mg Q8H and then prednisone 40 mg PO daily for 2 days, then resumed usual prednisone 20mg daily in AM * Blood cultures ordered on admit -- of note, abx given in ER PRIOR to being drawn --> 1/4 bottles with coag staph not lugd. blood cultures 09/01 & 09/03: with coag staph not lugd. (Could be contaminant but in multiple bottles thus will treat) Blood cultures repeated today 09/11 to ensure no further growth Urine cx without growth, but UA did appear infected * Initially on Cefepime, Vanco added 09/02 given GPC in blood cultures Received IV vancomycin for 7 days through 09/08 with transition to p.o. zyvox on 09/09 x 7 days for 14 day (total) treatment of Methicillin resistant coag negative staph bacteremia associated with pneumonia (as same bioavailability) * CTAP with b/l infiltrates of lungs, CXR with airspace opacities are seen in the right mid to lower lung, corresponding to the abnormality seen on abdominal CT. This could represent an infectious/inflammatory pneumonitis and/or pulmonary edema. --> Repeat CXR with slight improvement in right mid/lower lung space opacity. FAVORS pneumonia * Legionella urine ordered d/t urinary/pulm symptoms and from [place] with other sick residents which was negative * ECHO obtained--LV systolic function is normal. No regional wma. Mild concentric LVH. EF 60-65%. No significant valve pathology or valvular vegetation identified. No change from 06/2019 (2) Nausea vomiting and diarrhea: * Secondary to viral gastroenteritis as reports are that there are multiple other members of her personal usp sick with a similar illness-- positive for norovirus * Stool PCR when able to obtain -- did have BM evening 09/01 but not collected * Zofran prn nausea * Diet as tolerated -- not much appetite, but no further n/v reported * Stress dose steroids for underlying adrenal insufficiency. Titrated down to usual oral Prednisone dosage * Diarrhea has since resolved; Continue MiraLAX PRN (3) Aspiration pneumonitis: Likely secondary to nausea/vomiting. Is not hypoxic at this time but had a mild cough * Remains afebrile at this time * CT abdomen/pelvis with infiltrates at the bases of bilateral lungs * CXR as above, BCx as above * O2 as needed to maintain sats -- 94% on RA currently * Treated with Cefepime and Vanco as outlined above (4) Hypokalemia: * Supplemented and resolved (5) Metabolic encephalopathy: * Resolved (6) Cystitis: * Does have nonobstructing kidney stones on CT imaging but does not need urgent treatment (7) Polymyalgia rheumatica: * On chronic prednisone 20 mg daily. Also takes tramadol (8) Chronic pain: * As above, with PMR and lumbar spine stenosis as cause of pain * Held tramadol for encephalopathy temporarily * Celebrex therapy (9) Type 2 diabetes mellitus: * ADA diet. Lantus. SSI (10) Hyperlipidemia: * Simvastatin (11) Dementia: * Supportive care * Continue home donepezil (12) Hypertension: * Resumed carvedilol for rate control given paroxysmal afib 09/02, resumed lisinopril * Hydralazine available prn if needed * BP well controlled at present (13) Vitamin D deficiency: * Continue home vitamin D (14) Paroxysmal atrial fibrillation: * Lone perioperative A. fib in 2018, no recurrence since then * BB resumed * Not on AC * Mag level this AM is 1.7 (15) B12 deficiency: * Checked d/t AMS/MCV 98.4 and patient reporting hx neuropathy * LOW at 152 --> replacement ordered IM while inpatient, continue PO at d/c DVT prophylaxis: Lovenox SQ Disposition: [facility] for rehab. Per case management, they can accept pt today. She is medically and hemodynamically stable for discharge at this time. Advise f/u with provider at SNF. Complete course of Zyvox as prescribed (will complete therapy on 09/15 after AM dose). Updated patient's son on 09/11 who agrees with current plan. Patient has been seen and evaluated by Dr. Pacheco who is in agreement with the aforementioned. Total Time Total Time Spent Total Time Spent (In Minutes): >30 minutes Discharge Plan Discharge Items Patient Disposition: Transfer [facility] Reason For Visit: SEPTIC SHOCK, UTI, PNA, NVD Discharge Diagnosis: pneumonia, bloodstream infection, urinary tract infection Activity: As commented below Activity Comment: with assistance as tolerated Non-emergency contact: Primary Care Provider Call non-emergency contact if: you have any medication questions and your symptoms worsen Follow-up/Referrals: Aniket Drake MD [Primary Care Provider] - Diet: Carb Consistent or DM2 Addtl Attending Provider Instructions: 1. Take all medications as directed on your medication reconciliation. 2. Complete course of antibiotics (Zyvox) as prescribed. Next dose due on 09/12/21 before bed. You will complete therapy on 09/15/21 after your dose at 0900. 3. Continue PT/OT at nursing home facility. 4. Follow up with healthcare provider at SNF within 48 hours of arrival. 5. Follow up with family doctor upon d/c from SNF. Pending Studies at Discharge: No Stand-Alone Forms: My [facility] Skilled Items Patient informed of condition?: Yes DNR: Yes Discharge Level of Care: Skilled Communicable Disease: No Discharge Prognosis: Improving Lines: None Urinary Catheter: No Medications and DC Order Prescriptions: New linezolid 600 mg Tablet 600 mg PO BID Qty: 6 RF: 0 cyanocobalamin (vitamin B-12) 1,000 mcg capsule 1,000 mcg PO DAILY Qty: 30 RF: 0 Continued (DME) Overnight Pad For Women Pad See Rx Instructions .ROUTE .MEDSUPPLY Qty: 168 RF: 3 (DME) Novofine Autocover 30 gauge x 1/3" needle See Rx Instructions .ROUTE .MEDSUPPLY Qty: 100 RF: 3 nystatin 100,000 unit/gram powder 1 applic TOP BID PRN (Reason: rash) Qty: 60 RF: 0 celecoxib [Celebrex] 200 mg capsule 400 mg PO QAM Qty: 180 RF: 3 (DME) OneTouch Ultra Blue Test Strip Strip See Rx Instructions .ROUTE .MEDSUPPLY Qty: 200 RF: 3 (DME) BD AutoShield Duo Pen Needle 30 gauge x 3/16" needle See Rx Instructions .ROUTE .MEDSUPPLY Qty: 200 RF: 3 carvedilol [Coreg] 3.125 mg tablet 3.125 mg PO BID17 Qty: 60 RF: 5 donepezil [Aricept] 10 mg tablet 10 mg PO HS Qty: 90 RF: 3 cholecalciferol (vitamin D3) 50 mcg (2,000 unit) capsule 2,000 unit PO QAM Qty: 30 RF: 6 simvastatin 20 mg tablet 20 mg PO HS Qty: 90 RF: 3 lisinopril 20 mg tablet 20 mg PO QAM Qty: 90 RF: 3 prednisone 20 mg tablet 20 mg PO QAM Qty: 90 RF: 3 (DME) lancets [ReadyLance Safety Lancets] 30 gauge misc See Rx Instructions .ROUTE .MEDSUPPLY Qty: 200 RF: 3 tramadol 50 mg tablet 50 mg PO TID Qty: 90 RF: 1 diclofenac sodium 1 % Gel 4 g TOPICAL DAILY PRN (Reason: PAIN R KNEE) RF: 0 Bengay Greaseless 15-10 % Cream 1 applic TOPICAL QID RF: 0 acetaminophen 325 mg tablet 325 mg PO TID MDD 3 GRAMS/24 HOURS RF: 0 Changed Lantus Solostar U-100 Insulin 100 unit/mL (3 mL) insulin pen 5 unit SC Q12H Qty: 0 RF: 0 Discharge Orders: Discharge Order (Routine); Ordered 09/12/21 Ordered By: Glendy Santos/Other Patient Handouts: High Blood Sugar (Hyperglycemia), Hypoglycemia (Low Blood Sugar), Managing Type 2 Diabetes Admission Data Admit Date/Time: 09/01/21 14:48 Attending Provider: Geremias Pacheco Admit Provider: Aggie Felix Primary Care Provider: Aniket Drake Other Providers: Aggie Felix ; [place],[facility], [place] ; [facility] Coding Level of Care Code D/C DAY MANAGEMENT >30 MINS Diagnoses Septic shock A41.9; R65.21 Nausea vomiting and diarrhea R11.2; R19.7 Aspiration pneumonitis J69.0 Hypokalemia E87.6 Metabolic encephalopathy G93.41 Cystitis N30.90 Polymyalgia rheumatica M35.3 Chronic pain G89.29 Type 2 diabetes mellitus E11.9 Hyperlipidemia E78.5 Dementia F03.90 Dementia behavioral disturbance: without behavioral disturbance Dementia type: unspecified type Hypertension I10 Hypertension type: unspecified Vitamin D deficiency E55.9 Paroxysmal atrial fibrillation I48.0 B12 deficiency E53.8
== END 2021-09-12 12:09 | DRG 871 ==
LOC: ED 10:45 → 2S 14:48 → SUATTDRO 14:48 → 2S 18:13 → 3W 09-05 21:07

== ENCOUNTER 2021-09-27 10:32 | Inpatient (IN) ==
[2021-09-27] MEDS ORDERED: PANTOPRAZOLE BOLUS/DRIP 1 EA IV STA (11:00)
[2021-09-27] MEDS ORDERED: PANTOprazole 80 MG in DEXTROSE 5% 100 ML IV ONE (11:00)
--- NOTE | 2021-09-27 11:02 | Emergency Department Note ---
History of Present Illness General Chief complaint: GI Bleed Stated complaint: POSSIBLE GI BLEED. HBG DROPPING Time Seen by Provider: 09/27/21 10:48 Source: EMS and RN notes reviewed Mode of arrival: EMS Limitations: other (Dementia and generally nonverbal at baseline) History of Present Illness Provider complaint: Dropping hemoglobin Onset (ago): day(s) History is limited due to the patient's dementia. She is generally nonverbal at baseline. She is brought over by ambulance today for possible GI bleed. The staff at her residence noticed that she has had dark stools over the past sev eral days and has had a dropping hemoglobin. It was 9.1 today. She was found to be hypotensive by EMS with a systolic pressure of 70. They did give her about 200 cc of normal saline. The patient offers no complaints. She will answer some simple yes and no questions. She denies headache, chest pain or abdominal pain. She will not answer any further questions. It is unclear how reliable her answers are. She is not on a blood thinner. She is on an antibiotic for UTI. Home Medications Medication Instructions Recorded Confirmed Type incontinence pad, liner, disp #168 ea 08/11/19 06/22/21 Rx (Overnight Pad For Women) pen needle, diabetic, safety 30 #100 ea 06/28/20 06/22/21 Rx gauge x 1/3" (Novofine Autocover) nystatin 100,000 unit/gram topical 1 applic TOP BID PRN #60 gm 09/27/20 09/27/21 Rx powder blood sugar diagnostic (OneTouch #200 ea 11/14/20 06/22/21 Rx Ultra Blue Test Strip) pen needle,diabetic dual safty 30 #200 ea 11/14/20 06/22/21 Rx gauge x 3/16" (BD AutoShield Duo Pen Needle) diclofenac sodium 1 % topical gel 4 g TOPICAL DAILY PRN 05/05/21 09/27/21 Hist ory carvedilol 3.125 mg tablet (Coreg) 3.125 mg PO BID17 #60 tab 05/29/21 09/27/21 Rx cholecalciferol (vitamin D3) 50 2,000 unit PO QAM #30 cap 05/29/21 09/27/21 Rx mcg (2,000 unit) capsule donepezil 10 mg tablet (Aricept) 10 mg PO HS #90 tab 11/22/21 03/23/22 Rx lisinopril 20 mg tablet 20 mg PO QAM #90 tab 05/29/21 09/27/21 Rx simvastatin 20 mg tablet 20 mg PO HS #90 tab 05/29/21 09/27/21 Rx prednisone 20 mg tablet 20 mg PO QAM #90 tab 07/10/21 09/27/21 Rx lancets 30 gauge (ReadyLance #200 ea 07/11/21 Rx Safety Lancets) acetaminophen 325 mg tablet 650 mg PO TID MDD 3 GRAMS/24 HOURS 09/01/21 09/27/21 History methyl salicylate 15 %-menthol 10 1 applic TOPICAL QID 09/01/21 09/27/21 History % topical cream cyanocobalamin (vitamin B-12) 1,000 mcg PO DAILY #30 cap 09/12/21 09/27/21 Rx 1,000 mcg capsule Zofran Solution 8 mg IV Q8 PRN 09/27/21 09/27/21 History acetaminophen 325 mg tablet 650 mg PO Q4 PRN MDD 3g 09/27/21 09/27/21 History ciprofloxacin 400 mg/200 mL in 5 % 400 mg IV Q12H 09/27/21 09/27/21 History dextrose intravenous piggyback insulin glargine 100 unit/mL (3 8 unit SC Q12H 09/27/21 09/27/21 History mL) subcutaneous pen (Lantus Solostar U-100 Insulin) nystatin 100,000 unit/mL oral 5 ml PO QID 09/27/21 09/27/21 History suspension Allergies Allergy/AdvReac Type Severity Reaction Status Date / Time adhesive Allergy Intermediate SKIN Verified 09/27/21 11:19 BLISTERS tetanus toxoid, adsorbed Allergy Mild EDEMA AT Verified 09/27/21 11:19 SITE codeine AdvReac Intermediate HEART Verified 09/27/21 11:19 PALPITATIONS, RECIEVED MORPHINE IV IN 2004 ADMIT Past Med/Surg History Medical History Acute shoulder pain Atrial fibrillation Developed intraoperatively on 06/15/2019. 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 Cognitive impairment Complicated UTI (urinary tract infection) Depression Diabetes Encounter for pre-operative examination Gait instability Gastroesophageal reflux History of respiratory failure Hx of fall Hx pulmonary embolism Hx: UTI (urinary tract infection) Hydronephrosis with obstructing calculus Hyperlipidemia Knee pain Lumbago Lumbar facet joint syndrome Paroxysmal atrial fibrillation Spinal stenosis, lumbar region without neurogenic claudication Type 2 diabetes mellitus Vitamin D deficiency Weakness Surgical History H/O cystoscopy cyst with L stent: 06/15/2019 at [facility]. MAC. Patient given insulin for hyperglycemia and metoprolol and cardizem intraop H/O: hysterectomy History of appendectomy History of knee replacement procedure of left knee History of knee replacement procedure of right knee History of open reduction and internal fixation (ORIF) procedure L HUMEROUS Hx of cholecystectomy Hx of excision of epidermal inclusion cyst Hx of tonsillectomy Presence urogenital implant Family History Sister Diabetes Stroke Brother Diabetes Prostate cancer Father Lung disease Social History Smoking Status: Unknown if ever smoked Cigarettes Per Day: UTO; Second Hand Exposure: No; Preferred Language: Divehi Communication Ability: Impaired Visual Impairment: Limited Hearing Ability: Hard of Hearing Assessor Required: No Beliefs That Will Affect Care: None Current Living Situation: Correction Current Living Situation Comment: from [place] current occupational status: retired How many Children do You have: 1 Feels Safe at Home: Declines to Answer caffeine: No Seatbelt Use: always Assistive Devices: None Review of Systems See HPI for pertinent positives & negatives. Unobtainable due to cognitive status Physical Exam Vital Signs Vital Signs - 24 hr 09/27/21 10:46 09/27/21 12:04 09/27/21 14:36 Temperature 36.6 C Temperature Source Oral Pulse Rate 83 Pulse Rate [Apical] 95 H Respiratory Rate 18 12 Blood Pressure 113/40 L Blood Pressure [Right Arm] 115/62 Blood Pressure Mean 64 Blood Pressure Mean [Right Arm] 79 Pulse Oximetry 98 94 Oxygen Delivery Method Room Air Room Air Room Air Sepsis Recent Fever Within 48 Hours No Sepsis New/Unexplained Change in Mental Status No Sepsis Action Taken by Nursing No Action Required Constitutional: Vital signs reviewed. Eyes: Pupils are equal round reactive to light. Conjunctiva are noninjected. ENT: Pharynx is clear without erythema or exudate. Mucous membranes are moist. Neck supple without meningeal signs. Respiratory: Clear to auscultation bilaterally. Breath sounds are equal bilaterally. Cardiovascular: Regular rate and rhythm. No rubs or gallops. GI: Soft, nondistended and nontender. Bowel sounds are present. Rectal: Guaiac positive dark brown stool. Musculoskeletal: No peripheral edema. No lower extremity tenderness. Integumentary: No cyanosis. or jaundice. Neurological: The patient is awake and alert. Does not follow commands. Psychiatric: Unable to assess. Course Administered Medications Pantoprazole Sodium 40 mg/ (Dextrose) 100 mls @ 20 mls/hr IV Q5H PHOEBE Stop: 10/27/21 11:14 Last Admin: 09/27/21 12:37 Dose: 8 mg/hr, 20 mls/hr Documented by: [id number] Discontinued Medications Pantoprazole Sodium 80 mg/ (Dextrose) 120 mls @ 400 mls/hr IV NOW ONE Stop: 09/27/21 11:17 Last Infusion: 09/27/21 12:34 Dose: 0 mls/hr Documented by: [id number] Admin: 09/27/21 12:16 Dose: 400 mls/hr Documented by: [id number] Critical Care Time Critical Care Time: Yes Total Critical Care Time: 35 I have personally spent approximately 35 minutes of critical care time in the direct management of this patient. This includes bedside care, interpretation of diagnostic studies, and testing, discussion with consultants, patient, and family members, and other required patient management activities. These minutes are in excess of all separately billable procedures. Medical Decision Making Differential Diagnosis GI bleed, anemia, shock due to blood loss, peptic ulcer disease, AVM Medical Records Attestation: I reviewed the patient's medical records. I did perform a limited focused review of portions of the patient's old chart on the electronic medical record. The patient was admitted for septic shock and pneumonia last month and just discharged from the hospital on the eighth of this month. She did have a CT of the abdomen pelvis during her hospitalization last month which showed a gastric diverticulum. Her last hemoglobin was 12.1 on the fourth of this month. Home Medications Current Medication List: was personally reviewed by me Laboratory Data Attestation: I reviewed the patient's lab results. Result diagrams: 09/27/21 11:29 09/27/21 11:29 Lab Results 09/27/21 09/27/21 09/27/21 Range/Units 11:29 11:29 11:29 WBC 16.10 H (4.8-10.8) K/uL RBC 2.76 L (4.2-5.4) M/uL Hgb 9.0 L (12.0-16.0) g/dL Hct 27.7 L (37-47) % MCV 100.4 H (80-100) fL MCH 32.6 (25-34) pg MCHC 32.5 (32-36) g/dL RDW Std Deviation 57.9 H (36.4-46.3) fL RDW Coeff of Junie 16.1 H (11.5-14.5) % Plt Count 299 (130-400) K/uL MPV 10.2 (7.4-10.4) fL Immature Gran % (Auto) 0.3 % Neut % (Auto) 83.5 % Lymph % (Auto) 9.9 % [place] % (Auto) 5.5 % Eos % (Auto) 0.7 % Baso % (Auto) 0.1 % Neut # (Auto) 13.43 H (1.4-6.5) K/uL Lymph # (Auto) 1.60 (1.2-3.4) K/uL [place] # (Auto) 0.89 H (0.11-0.59) K/uL Eos # (Auto) 0.12 (0-0.5) K/uL Baso # (Auto) 0.01 (0-0.2) K/uL Immature Gran # (Auto) 0.05 H (0.00-0.02) K/uL PT 11.6 (9.0-12.0) Seconds INR 1.1 (0.9-1.1) APTT < 20.0 L (21.0-31.0) Seconds PTT Ratio 0.7 Sodium (136-145) mmol/L Potassium (3.5-5.1) mmol/L Chloride (98-107) mmol/L Carbon Dioxide (21-32) mmol/L Anion Gap (3-11) BUN (6-23) mg/dl Creatinine (0.6-1.2) mg/dl Est Cr Clr Drug Dosing ml/min Est GFR ( Amer) ml/min Est GFR (Non-Af Amer) ml/min BUN/Creatinine Ratio (10-20) Glucose (70-99(Fasting)) mg/dl Lactate (0.4-2.0) mmol/L Calcium (8.5-10.1) mg/dl Ionized Calcium (1.12-1.32) mmol/L Total Bilirubin (0.2-1.0) mg/dl AST (13-39) U/L ALT (7-52) U/L Alkaline Phosphatase (34-104) U/L C-Reactive Protein (0-0.5) mg/dl Total Protein (6.0-8.3) gm/dl Albumin (3.4-5.0) gm/dl Globulin (2.5-4.0) gm/dl Albumin/Globulin Ratio (0.9-2) Urine Color Urine Appearance (Clear) Urine pH (4.5-7.5) Ur Specific [place] (1.000-1.030) Urine Protein (Negative) Urine Glucose (UA) (Negative) Urine Ketones (Negative) Urine Blood (Negative) Urine Nitrite (Negative) Urine Bilirubin (Negative) Urine Urobilinogen (Negative) Ur Leukocyte Esterase (Negative) Urine WBC (Auto) (0-5) /hpf Urine RBC (Auto) (0-4) /hpf U Hyaline Cast (Auto) (0-5) /lpf U Epithel Cells (Auto) (0-5) /lpf Urine Bacteria (Auto) (Negative) SARS-CoV-2, RNA, NAAT (NEGATIVE) Blood Type A Positive Antibody Screen NEGATIVE 09/27/21 09/27/21 09/27/21 Range/Units 11:29 12:18 12:18 WBC (4.8-10.8) K/uL RBC (4.2-5.4) M/uL Hgb (12.0-16.0) g/dL Hct (37-47) % MCV (80-100) fL MCH (25-34) pg MCHC (32-36) g/dL RDW Std Deviation (36.4-46.3) fL RDW Coeff of Junie (11.5-14.5) % Plt Count (130-400) K/uL MPV (7.4-10.4) fL Immature Gran % (Auto) % Neut % (Auto) % Lymph % (Auto) % [place] % (Auto) % Eos % (Auto) % Baso % (Auto) % Neut # (Auto) (1.4-6.5) K/uL Lymph # (Auto) (1.2-3.4) K/uL [place] # (Auto) (0.11-0.59) K/uL Eos # (Auto) (0-0.5) K/uL Baso # (Auto) (0-0.2) K/uL Immature Gran # (Auto) (0.00-0.02) K/uL PT (9.0-12.0) Seconds INR (0.9-1.1) APTT (21.0-31.0) Seconds PTT Ratio Sodium 140 (136-145) mmol/L Potassium 3.8 (3.5-5.1) mmol/L Chloride 107 (98-107) mmol/L Carbon Dioxide 29 (21-32) mmol/L Anion Gap 4 (3-11) BUN 71 H (6-23) mg/dl Creatinine 0.98 (0.6-1.2) mg/dl Est Cr Clr Drug Dosing 40.3 ml/min Est GFR ( Amer) 61.0 ml/min Est GFR (Non-Af Amer) 52.6 ml/min BUN/Creatinine Ratio 72.4 H (10-20) Glucose 190 H (70-99(Fasting)) mg/dl Lactate 2.5 H* (0.4-2.0) mmol/L Calcium 10.4 H (8.5-10.1) mg/dl Ionized Calcium (1.12-1.32) mmol/L Total Bilirubin 0.5 (0.2-1.0) mg/dl AST 9 L (13-39) U/L ALT 13 (7-52) U/L Alkaline Phosphatase 46 (34-104) U/L C-Reactive Protein (0-0.5) mg/dl Total Protein 5.4 L (6.0-8.3) gm/dl Albumin 3.3 L (3.4-5.0) gm/dl Globulin 2.1 L (2.5-4.0) gm/dl Albumin/Globulin Ratio 1.6 (0.9-2) Urine Color Urine Appearance (Clear) Urine pH (4.5-7.5) Ur Specific [place] (1.000-1.030) Urine Protein (Negative) Urine Glucose (UA) (Negative) Urine Ketones (Negative) Urine Blood (Negative) Urine Nitrite (Negative) Urine Bilirubin (Negative) Urine Urobilinogen (Negative) Ur Leukocyte Esterase (Negative) Urine WBC (Auto) (0-5) /hpf Urine RBC (Auto) (0-4) /hpf U Hyaline Cast (Auto) (0-5) /lpf U Epithel Cells (Auto) (0-5) /lpf Urine Bacteria (Auto) (Negative) SARS-CoV-2, RNA, NAAT NEGATIVE (NEGATIVE) Blood Type Antibody Screen 09/27/21 09/27/21 09/27/21 Range/Units 13:38 14:31 15:15 WBC (4.8-10.8) K/uL RBC (4.2-5.4) M/uL Hgb (12.0-16.0) g/dL Hct (37-47) % MCV (80-100) fL MCH (25-34) pg MCHC (32-36) g/dL RDW Std Deviation (36.4-46.3) fL RDW Coeff of Junie (11.5-14.5) % Plt Count (130-400) K/uL MPV (7.4-10.4) fL Immature Gran % (Auto) % Neut % (Auto) % Lymph % (Auto) % [place] % (Auto) % Eos % (Auto) % Baso % (Auto) % Neut # (Auto) (1.4-6.5) K/uL Lymph # (Auto) (1.2-3.4) K/uL [place] # (Auto) (0.11-0.59) K/uL Eos # (Auto) (0-0.5) K/uL Baso # (Auto) (0-0.2) K/uL Immature Gran # (Auto) (0.00-0.02) K/uL PT (9.0-12.0) Seconds INR (0.9-1.1) APTT (21.0-31.0) Seconds PTT Ratio Sodium (136-145) mmol/L Potassium (3.5-5.1) mmol/L Chloride (98-107) mmol/L Carbon Dioxide (21-32) mmol/L Anion Gap (3-11) BUN (6-23) mg/dl Creatinine (0.6-1.2) mg/dl Est Cr Clr Drug Dosing ml/min Est GFR ( Amer) ml/min Est GFR (Non-Af Amer) ml/min BUN/Creatinine Ratio (10-20) Glucose (70-99(Fasting)) mg/dl Lactate (0.4-2.0) mmol/L Calcium (8.5-10.1) mg/dl Ionized Calcium 1.40 H (1.12-1.32) mmol/L Total Bilirubin (0.2-1.0) mg/dl AST (13-39) U/L ALT (7-52) U/L Alkaline Phosphatase (34-104) U/L C-Reactive Protein 1.31 H (0-0.5) mg/dl Total Protein (6.0-8.3) gm/dl Albumin (3.4-5.0) gm/dl Globulin (2.5-4.0) gm/dl Albumin/Globulin Ratio (0.9-2) Urine Color Yellow Urine Appearance Clear (Clear) Urine pH 5.0 (4.5-7.5) Ur Specific [place] 1.023 (1.000-1.030) Urine Protein Negative (Negative) Urine Glucose (UA) Trace H (Negative) Urine Ketones Negative (Negative) Urine Blood Negative (Negative) Urine Nitrite Positive A (Negative) Urine Bilirubin Negative (Negative) Urine Urobilinogen Negative (Negative) Ur Leukocyte Esterase Trace H (Negative) Urine WBC (Auto) 10-30 H (0-5) /hpf Urine RBC (Auto) 0-4 (0-4) /hpf U Hyaline Cast (Auto) 0 (0-5) /lpf U Epithel Cells (Auto) 20-30 H (0-5) /lpf Urine Bacteria (Auto) Negative (Negative) SARS-CoV-2, RNA, NAAT (NEGATIVE) Blood Type Antibody Screen Imaging Data Radiologist's Impression: Chest X-Ray 09/27/21 11:00 XR chest 1V portable CLINICAL HISTORY: hypotension eval for pna TECHNIQUE: Single frontal radiograph of the chest was obtained. Comparison: Comparison is made to chest one view 09/03/2021 FINDINGS: No lines and tubes are seen. Calcified aortic knob is seen. Lungs are underinflated but clear. No evidence of pleural effusion or pneumothorax. Partial visualization of left humeral. IMPRESSION: No acute abnormality and in particular no evidence of pneumonia ACT 112: Negative or not required by law. Electronically signed by: Frandy Christie M.D. 09/27/2021 11:40 AM ECG Data Attestation: I personally reviewed and interpreted this ECG as follows: Indication: + other (Hypotension) Rate (beats per minute): 87 Rhythm: + normal sinus ECG Intervals/blocks: + Left anterior fascicular block ECG Findings: + Other (Limited interpretation due to motion artifact); no PVCs Comparison ECG Date: from (09/09/2021) Change: no significant change MDM Narrative I did evaluate the patient as noted above. I did obtain history from the nurse who spoke to the distribution center assistant. The patient apparently has had dark stools for the past several days and her hemoglobin has been dropping. A presumed she had a GI bleed and called the ambulance today. The ambulance noted a systolic blood pressure in the 70s and gave her about 2 to 300 cc of normal saline. She is very minimally hypotensive here with a blood pressure 113/40. On exam she has guaiac positive brown stool. I did start her on an IV continuous Protonix drip. did place an order for continuous cardiac monitoring. The monitor showed normal sinus rhythm at a rate of 85 bpm. I did order and personally review the patient's 12-lead EKG as described above. She has significant motion artifact but no obvious signs of of ischemia. did order and personally reviewed the images of the patient's chest x-ray as described above. She does not have any signs of pneumonia. I did a type and screen. I did order and review the patient's blood work as noted in the electronic medical record. CBC shows a white count of 16 with a hemoglobin of 9 platelet count of 299. Her electroly bigg are unremarkable other than a calcium of 10.4. Because of the elevated white blood cell count and recent admission for sepsis I did order blood cultures and a lactate as well as urine analysis which are now pending. I did order a SARS Covid test as well. I did discuss the case with the hospitalist and manager of case. The charge nurse later called me to let me know that the stool sample tested at her residence was positive for C. difficile. I did relay this message to the hospitalist service. Impression & Plan Acute upper gastrointestinal bleeding, Acute hypotension, Anemia due to blood loss, Hypercalcemia, Leukocytosis, Clostridium difficile infection Discharge Plan Visit Data Chief Complaint: GI Bleed Stated Complaint: POSSIBLE GI BLEED. HBG DROPPING ED Provider: Dat Tinsley Discharge Problem: Acute upper gastrointestinal bleeding, Acute hypotension, Anemia due to blood loss, Hypercalcemia, Leukocytosis, Clostridium difficile infection Patient Disposition: Being Evaluated by Hospitalist Forms Stand Alone Forms: My [facility] Prescriptions Prescriptions: No Action (DME) Overnight Pad For Women Pad See Rx Instructions .ROUTE .MEDSUPPLY Qty: 168 RF: 3 (DME) Novofine Autocover 30 gauge x 1/3" needle See Rx Instructions .ROUTE .MEDSUPPLY Qty: 100 RF: 3 nystatin 100,000 unit/gram powder 1 applic TOP BID PRN (Reason: rash) Qty: 60 RF: 0 (DME) OneTouch Ultra Blue Test Strip Strip See Rx Instructions .ROUTE .MEDSUPPLY Qty: 200 RF: 3 (DME) BD AutoShield Duo Pen Needle 30 gauge x 3/16" needle See Rx Instructions .ROUTE .MEDSUPPLY Qty: 200 RF: 3 carvedilol [Coreg] 3.125 mg tablet 3.125 mg PO BID17 Qty: 60 RF: 5 donepezil [Aricept] 10 mg tablet 10 mg PO HS Qty: 90 RF: 3 cholecalciferol (vitamin D3) 50 mcg (2,000 unit) capsule 2,000 unit PO QAM Qty: 30 RF: 6 simvastatin 20 mg tablet 20 mg PO HS Qty: 90 RF: 3 lisinopril 20 mg tablet 20 mg PO QAM Qty: 90 RF: 3 prednisone 20 mg tablet 20 mg PO QAM Qty: 90 RF: 3 (DME) lancets [ReadyLance Safety Lancets] 30 gauge misc See Rx Instructions .ROUTE .MEDSUPPLY Qty: 200 RF: 3 diclofenac sodium 1 % Gel 4 g TOPICAL DAILY PRN (Reason: PAIN R KNEE) RF: 0 methyl salicylate-menthol 15-10 % Cream 1 applic TOPICAL QID RF: 0 acetaminophen 325 mg tablet 650 mg PO TID MDD 3 GRAMS/24 HOURS RF: 0 cyanocobalamin (vitamin B-12) 1,000 mcg capsule 1,000 mcg PO DAILY Qty: 30 RF: 0 acetaminophen 325 mg tablet 650 mg PO Q4 MDD 3g PRN (Reason: Fever Or Pain) RF: 0 Lantus Solostar U-100 Insulin 100 unit/mL (3 mL) insulin pen 8 unit SC Q12H RF: 0 nystatin 100,000 unit/mL Suspension 5 ml PO QID RF: 0 Zofran Solution 8 mg IV Q8 PRN (Reason: Nausea And Vomiting) RF: 0 ciprofloxacin in 5 % dextrose 400 mg/200 mL Piggyback 400 mg IV Q12H RF: 0 Referrals Referrals: Aniket Drake MD [Primary Care Provider] - Discharge Problem: Leukocytosis Qualifiers: Leukocytosis type: unspecified Qualified Code(s): D72.829 - Elevated white blood cell count, unspecified
--- NOTE | 2021-09-27 11:41 | XRay Report ---
XR chest 1V portable CLINICAL HISTORY: hypotension eval for pna TECHNIQUE: Single frontal radiograph of the chest was obtained. Comparison: Comparison is made to chest one view 09/03/2021 FINDINGS: No lines and tubes are seen. Calcified aortic knob is seen. Lungs are underinflated but clear. No ирина dence of pleural effusion or pneumothorax. Partial visualization of left humeral. IMPRESSION: No acute abnormality and in particular no evidence of pneumonia ACT 112: Negative or not required by law. Electronically signed by: Frandy Christie M.D. 09/27/2021 11:40 AM
[2021-09-27 11:49] LABS: Basophils # (auto) 0.01 K/uL (0-0.2); Basophils % (auto) 0.1 %; Eosinophils # (auto) 0.12 K/uL (0-0.5); Eosinophils % (auto) 0.7 %; Hematocrit (blood only) 27.7 % (37-47); Immature Granulocytes # (auto) 0.05 K/uL (0.00-0.02); Immature Granulocytes % (auto) 0.3 %; Lymphocytes % (auto) 9.9 %; Mean Corpuscular Hemoglobin 32.6 pg (25-34); Mean Corpuscular Hgb Conc 32.5 g/dL (32-36); Mean Corpuscular Volume 100.4 fL (80-100); Mean Platelet Volume 10.2 fL (7.4-10.4); Monocytes # (auto) 0.89 K/uL (0.11-0.59); Monocytes % (auto) 5.5 %; Neutrophils # (auto) 13.43 K/uL (1.4-6.5); Neutrophils % (auto) 83.5 %; Platelet Count 299 K/uL (130-400); RDW Coefficient of Variation 16.1 % (11.5-14.5); RDW Standard Deviation 57.9 fL (36.4-46.3); Red Blood Count 2.76 M/uL (4.2-5.4)
[2021-09-27 12:01] LABS: INR 1.1 (0.9-1.1); Partial Thromboplastin Ratio 0.7; Prothrombin Time 11.6 Seconds (9.0-12.0)
[2021-09-27 12:12] LABS: Albumin Globulin Ratio 1.6 (0.9-2); Albumin Level 3.3 gm/dl (3.4-5.0); BUN Creatinine Ratio 72.4 (10-20); Bilirubin,Total 0.5 mg/dl (0.2-1.0); Calcium 10.4 mg/dl (8.5-10.1); Creatinine Clr Calc Pharmacy 40.3 ml/min; Est GFR (Non-African American) 52.6 ml/min; Globulin 2.1 gm/dl (2.5-4.0); Potassium 3.8 mmol/L (3.5-5.1); Total Protein 5.4 gm/dl (6.0-8.3)
[2021-09-27 12:13] LABS: Partial Thromboplastin Time < 20.0 Seconds (21.0-31.0)
[2021-09-27] MEDS: PANTOprazole 40 MG in DEXTROSE 5% 100 ML IV SCH ×3 (12:37→23:00)
--- NOTE | 2021-09-27 13:41 | Electrocardiogram Report ---
Test Reason : Blood Pressure : / mmHG Vent. Rate : 087 BPM Atrial Rate : 087 BPM P-R Int : 140 ms QRS Dur : 102 ms QT Int : 362 ms P-R-T Axes : 064 -62 091 degrees QTc Int : 435 ms Normal sinus rhythm Left anterior fascicular block Abnormal ECG When compared with ECG of 09-SEP-2021 20:04, Nonspecific T wave abnormality, improved in Lateral leads Confirmed by Oracio Herrera ([id number]) on 09/27/2021 1:41:24 PM Referred By: REFERRED SELF Confirmed By:Isael Herrera
[2021-09-27 13:51] LABS: Appearance Urine Clear (Clear); Bacteria Urine Automated Negative (Negative); Bilirubin Urine Negative (Negative); Blood Urine Negative (Negative); Cast Urine Automated 0 /lpf (0-5); Color Urine Yellow; Epithelial Cell Urine Auto 20-30 /lpf (0-5); Glucose Urine UA Trace (Negative); Ketones Urine Negative (Negative); Leukocyte Esterase Urine Trace (Negative); Nitrite Urine Positive (Negative); Protein Urine Negative (Negative); RBC Urine Automated 0-4 /hpf (0-4); Specific Gravity Urine 1.023 (1.000-1.030); Urobilinogen Urine Negative (Negative)
--- NOTE | 2021-09-27 13:56 | History & Physical Report ---
Date of Service September 27, 2021 Assessment & Plan (1) GI bleed: Plan: GI Bleed unspecified source- likely with UGI source with increased BUN and Downtrending HGB - Chronic steroid use, topical NSAID, no PPI - HGB 9.0- recent HGB 12 - Type and screen- phone consent for blood transfusion obtained by cesar George - Protonix bolus and drip already started in the EMD- will continue as this is already hanging - Maintain 2 large bore IV - GI Consulted- appreciate assistance - NPO - Transfuse for return of hypotension and/or HGB 8 CTA abdomen/pelvis with concern for duodenal ulcer with possible contained perforation- discussed with Dr. Worthington with findings- reviewed imaging. As care outlined above and below- no change to current plans. (2) Acute hypotension: Plan: As above- Multiple etiologies - Currently resolved - support hemodynamics and urine output - if acutely decompensates without response add stress dose steroids (3) Anemia due to blood loss: Plan: As above (4) SIRS (systemic inflammatory response syndrome): Plan: Hypotension on arrival- WBC 14 with NLR 7.5:1, lactate 7.5 - Response could be from blood loss or Leukocytosis without source - CTA of abdomen and pelvis evaluate for colitis- HX C. Diff gene positive- TOXIN NEGATIVE - Trend Lactate - Pending results of CTA abdomen and pelvis - thickening and mucosal hyperemia seen involving proximal duodenum with significant surrounding inflammation. There is an apparent mucosal defect identified within the proximal duodenum, and the appearance is highly concerning for duodenal ulcer with contained perforation. Duodenitis or less likely groove pancreatitis are differential considerations. - Will start Zosyn 3.375 IV q8 (5) Polymyalgia rheumatica: Plan: Prednisone daily 20mg - required stress dose last admission - continue with PPI (6) Gastroesophageal reflux: Plan: Hx of but not on cardiopulmonary technologist medication from review- has not had recent EGD or colo (7) Type 2 diabetes mellitus: Plan: On Lantus BID - Continue - BG q6 hours while NPO - goal <180 (8) Ureterolithiasis: Plan: CTA abdomen and pelvis previous admission with 8mm- non obstructing UA as above (9) Cognitive impairment: Plan: Baseline dementia- poor cognitive function continue her donepezil History of Present Illness Chief Complaint: Dark stools Primary Care Provider: Aniket Drake MD Patient has dementia at baseline: HPI information obtained from chart review- did have phone discussion with son Ariel for obtaining blood consent and confirming code status as DNR/DNI. 86 YOF with past medical history of: PMR on chronic prednisone, chronic pain, lone atrial fibrillation postoperatively, DM 2, HTN, dementia, nephrolithiasis, renal cysts, and recurrent UTIs who presents to the ER from her personal care homefor concern of GI Bleed, as she has had 2-3 days of dark stools, and reported decrease in her HGB. EMS transported patient and reported hypotension requiring minimal crystalloid to bring BP up. In the EMD she was noted to be heme positive without louise blood reported. She was started on Protonix drip and bolus, type and screened, blood culture and urine culture and hospitalist service was consulted for admission. Patient is currently has MAPS >65 with SBP >100, not tachycardic and is warm. Her labs are remarkable for continued Leukocytosis, Lactate of 2.5, BUN increased to 72 (28), and HGB of 9.0. Her HGB on 09/08/21 from discharge here was 12.1. Patient will be placed in the PCU, trend her HGB, transfuse for hypotension or HGB 8. Will obtain CTA of her abdomen and pelvis to evaluate for bleeding, colitis. Patient was recently admitted 09/01/21 and discharged on 09/08/21 with n/v/d hypotension, met SIRS criteria requiring stress dose steroids at that time for her long history of PMR and chronically on Prednisone 20mg daily. She was given Cefepime for aspiration pneumonia/pneumonitis as well as chronic cystitis. Her blood cultures at that time had 1 bottle with CONS- not lugd was placed on Vanco- repeated on 09/03 with same result- continued with Vancomycin and transitioned to Zyvox, ECHO as above. She had stool studies sent for her diarrhea- which reveals C. Diff gene positive and TOXIN NEGATIVE- this was reported at the [facility] where she resides - and remains gene positive with toxin negative as well as positive for norovirus. Her WBC counts are normally 9-11. She has history of one time afib without re-occurrence- ECHO was repeated in 08/29 with EF 60-65% with normal valves. Today her WBC are 16 with NLR 7.5:1, UA via straight cath with LE negative Nit +, WBC 10-30 with bacteria reported as negative. Blood and Urine cultures are pending. COVID test on admission is: NEGATIVE Allergies Allergy/AdvReac Type Severity Reaction Status Date / Time adhesive Allergy Intermediate SKIN Verified 09/27/21 11:19 BLISTERS tetanus toxoid, adsorbed Allergy Mild EDEMA AT Verified 09/27/21 11:19 SITE codeine AdvReac Intermediate HEART Verified 09/27/21 11:19 PALPITATIONS, RECIEVED MORPHINE IV IN 2004 ADMIT Home Medications Medication Instructions Recorded Confirmed Type incontinence pad, liner, disp #168 ea 08/11/19 06/22/21 Rx (Overnight Pad For Women) pen needle, diabetic, safety 30 #100 ea 06/28/20 06/22/21 Rx gauge x 1/3" (Novofine Autocover) nystatin 100,000 unit/gram topical 1 applic TOP BID PRN #60 gm 09/27/20 09/27/21 Rx powder blood sugar diagnostic (OneTouch #200 ea 11/14/20 06/22/21 Rx Ultra Blue Test Strip) pen needle,diabetic dual safty 30 #200 ea 11/14/20 06/22/21 Rx gauge x 3/16" (BD AutoShield Duo Pen Needle) diclofenac sodium 1 % topical gel 4 g TOPICAL DAILY PRN 05/05/21 09/27/21 History carvedilol 3.125 mg tablet (Coreg) 3.125 mg PO BID17 #60 tab 05/29/21 09/27/21 Rx cholecalciferol (vitamin D3) 50 2,000 unit PO QAM #30 cap 05/29/21 09/27/21 Rx mcg (2,000 unit) capsule donepezil 10 mg tablet (Aricept) 10 mg PO HS #90 tab 05/29/21 09/27/21 Rx lisinopril 20 mg tablet 20 mg PO QAM #90 tab 05/29/21 09/27/21 Rx simvastatin 20 mg tablet 20 mg PO HS #90 tab 05/29/21 09/27/21 Rx prednisone 20 mg tablet 20 mg PO QAM #90 tab 07/10/21 09/27/21 Rx lancets 30 gauge (ReadyLance #200 ea 07/11/21 Rx Safety Lancets) acetaminophen 325 mg tablet 650 mg PO TID MDD 3 GRAMS/24 HOURS 09/01/21 09/27/21 History methyl salicylate 15 %-menthol 10 1 applic TOPICAL QID 09/01/21 09/27/21 History % topical cream cyanocobalamin (vitamin B-12) 1,000 mcg PO DAILY #30 cap 09/12/21 09/27/21 Rx 1,000 mcg capsule Zofran Solution 8 mg IV Q8 PRN 09/27/21 09/27/21 History acetaminophen 325 mg tablet 650 mg PO Q4 PRN MDD 3g 09/27/21 09/27/21 History ciprofloxacin 400 mg/200 mL in 5 % 400 mg IV Q12H 09/27/21 09/27/21 History dextrose intravenous piggyback insulin glargine 100 unit/mL (3 8 unit SC Q12H 09/27/21 09/27/21 History mL) subcutaneous pen (Lantus Solostar U-100 Insulin) nystatin 100,000 unit/mL oral 5 ml PO QID 09/27/21 09/27/21 History suspension Past Med/Surg History Medical History Acute shoulder pain Atrial fibrillation Developed intraoperatively on 06/15/2019. 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 Cognitive impairment Complicated UTI (urinary tract infection) Depression Diabetes Encounter for pre-operative examination Gait instability Gastroesophageal reflux History of respiratory failure Hx of fall Hx pulmonary embolism Hx: UTI (urinary tract infection) Hydronephrosis with obstructing calculus Hyperlipidemia Knee pain Lumbago Lumbar facet joint syndrome Paroxysmal atrial fibrillation Spinal stenosis, lumbar region without neurogenic claudication Type 2 diabetes mellitus Vitamin D deficiency Weakness Surgical History H/O cystoscopy cyst with L stent: 06/15/2019 at [facility]. MAC. Patient given insulin for hyperglycemia and metoprolol and cardizem intraop H/O: hysterectomy History of appendectomy History of knee replacement procedure of left knee History of knee replacement procedure of right knee History of open reduction and internal fixation (ORIF) procedure L HUMEROUS Hx of cholecystectomy Hx of excision of epidermal inclusion cyst Hx of tonsillectomy Presence urogenital implant Family History Sister Diabetes Stroke Brother Diabetes Prostate cancer Father Lung disease Social History Smoking Status: Unknown if ever smoked Cigarettes Per Day: UTO; Tobacco Cessation Education Requested by Patient: No Preferred Language: Cymraes Communication Ability: Impaired Communication Ability Comment: communication impaired Communication Tools: Picture Board, Facial Expression, Physical Gestures and Lip Movement/Reading Visual Impairment: Limited Hearing Ability: Hard of Hearing Film Librarian Required: Yes Beliefs That Will Affect Care: None Current Living Situation: Long-Term Current Living Situation Comment: From [facility] current occupational status: retired How many Children do You have: 1 Feels Safe at Home: Declines to Answer caffeine: No Seatbelt Use: always Assistive Devices: Wheelchair Assistive Devices Comment: sam lift Review of Systems Review of Systems: REVIEW OF SYSTEMS: Unable to perform secondary to dementia Physical Exam Physical Exam: PHYSICAL EXAM: General: awake, alert, mumbled speech, and does groan with each body part that is touched Head: Normocephalic, atraumatic ENT: PERRL, no pharyngeal exudate, mucous membranes dry Neuro: AAO x 3, speech clear and appropriate, strength intact bilaterally 5/5, sensation intact and equal all extremities and dermatomes, no pronator drift Chest: equal rise and fall of the chest, no accessory muscle use, no heaves or thrills, scattered crackles, decreased in bases bilaterally, on RA Cardiac: Regular rate and rhythm, telemetry reviewed, skin warm dry, cap refill <3 seconds, peripheral pulses +2 no JVD, no murmur, no edema GI: NABS x 4 quadrants, soft, groans with palpation- but as above- : incontinent, straight cath obtained urine verónica Extremities: Normal inspection, no peripheral edema or erythema, calfs nontender to palpation Psych: demented Results & Data Results & Data ([facility]) Vital Signs (Past 12 Hours) Vital Signs Temp Pulse Resp BP Pulse Ox 09/27/21 10:46 36.6 C 83 18 113/40 L 98 Laboratory Results Laboratory Results - last 24 hr 09/27/21 09/27/21 09/27/21 11:29 11:29 11:29 WBC 16.10 H RBC 2.76 L Hgb 9.0 L Hct 27.7 L MCV 100.4 H MCH 32.6 MCHC 32.5 RDW Std Deviation 57.9 H RDW Coeff of Junie 16.1 H Plt Count 299 MPV 10.2 Immature Gran % (Auto) 0.3 Neut % (Auto) 83.5 Lymph % (Auto) 9.9 Gregg % (Auto) 5.5 Eos % (Auto) 0.7 Baso % (Auto) 0.1 Neut # (Auto) 13.43 H Lymph # (Auto) 1.60 Gregg # (Auto) 0.89 H Eos # (Auto) 0.12 Baso # (Auto) 0.01 Immature Gran # (Auto) 0.05 H PT 11.6 INR 1.1 APTT < 20.0 L PTT Ratio 0.7 Sodium Potassium Chloride Carbon Dioxide Anion Gap BUN Creatinine Est Cr Clr Drug Dosing Est GFR ( Amer) Est GFR (Non-Af Amer) BUN/Creatinine Ratio Glucose Lactate Calcium Total Bilirubin AST ALT Alkaline Phosphatase Total Protein Albumin Globulin Albumin/Globulin Ratio Urine Color Urine Appearance Urine pH Ur Specific Garland Urine Protein Urine Glucose (UA) Urine Ketones Urine Blood Urine Nitrite Urine Bilirubin Urine Urobilinogen Ur Leukocyte Esterase Urine WBC (Auto) Urine RBC (Auto) U Hyaline Cast (Auto) U Epithel Cells (Auto) Urine Bacteria (Auto) SARS-CoV-2, RNA, NAAT Blood Type A Positive Antibody Screen NEGATIVE 09/27/21 09/27/21 09/27/21 11:29 12:18 12:18 WBC RBC Hgb Hct MCV MCH MCHC RDW Std Deviation RDW Coeff of Junie Plt Count MPV Immature Gran % (Auto) Neut % (Auto) Lymph % (Auto) Gregg % (Auto) Eos % (Auto) Baso % (Auto) Neut # (Auto) Lymph # (Auto) Gregg # (Auto) Eos # (Auto) Baso # (Auto) Immature Gran # (Auto) PT INR APTT PTT Ratio Sodium 140 Potassium 3.8 Chloride 107 Carbon Dioxide 29 Anion Gap 4 BUN 71 H Creatinine 0.98 Est Cr Clr Drug Dosing 40.3 Est GFR ( Amer) 61.0 Est GFR (Non-Af Amer) 52.6 BUN/Creatinine Ratio 72.4 H Glucose 190 H Lactate 2.5 H* Calcium 10.4 H Total Bilirubin 0.5 AST 9 L ALT 13 Alkaline Phosphatase 46 Total Protein 5.4 L Albumin 3.3 L Globulin 2.1 L Albumin/Globulin Ratio 1.6 Urine Color Urine Appearance Urine pH Ur Specific Garland Urine Protein Urine Glucose (UA) Urine Ketones Urine Blood Urine Nitrite Urine Bilirubin Urine Urobilinogen Ur Leukocyte Esterase Urine WBC (Auto) Urine RBC (Auto) U Hyaline Cast (Auto) U Epithel Cells (Auto) Urine Bacteria (Auto) SARS-CoV-2, RNA, NAAT NEGATIVE Blood Type Antibody Screen 09/27/21 13:38 WBC RBC Hgb Hct MCV MCH MCHC RDW Std Deviation RDW Coeff of Junie Plt Count MPV Immature Gran % (Auto) Neut % (Auto) Lymph % (Auto) Gregg % (Auto) Eos % (Auto) Baso % (Auto) Neut # (Auto) Lymph # (Auto) Gregg # (Auto) Eos # (Auto) Baso # (Auto) Immature Gran # (Auto) PT INR APTT PTT Ratio Sodium Potassium Chloride Carbon Dioxide Anion Gap BUN Creatinine Est Cr Clr Drug Dosing Est GFR ( Amer) Est GFR (Non-Af Amer) BUN/Creatinine Ratio Glucose Lactate Calcium Total Bilirubin AST ALT Alkaline Phosphatase Total Protein Albumin Globulin Albumin/Globulin Ratio Urine Color Yellow Urine Appearance Clear Urine pH 5.0 Ur Specific Garland 1.023 Urine Protein Negative Urine Glucose (UA) Trace H Urine Ketones Negative Urine Blood Negative Urine Nitrite Positive A Urine Bilirubin Negative Urine Urobilinogen Negative Ur Leukocyte Esterase Trace H Urine WBC (Auto) 10-30 H Urine RBC (Auto) 0-4 U Hyaline Cast (Auto) 0 U Epithel Cells (Auto) 20-30 H Urine Bacteria (Auto) Negative SARS-CoV-2, RNA, NAAT Blood Type Antibody Screen Diagnostic Findings Chest X-Ray 09/27/21 11:00 XR chest 1V portable CLINICAL HISTORY: hypotension eval for pna TECHNIQUE: Single frontal radiograph of the chest was obtained. Comparison: Comparison is made to chest one view 09/03/2021 FINDINGS: No lines and tubes are seen. Calcified aortic knob is seen. Lungs are underinflated but clear. No evidence of pleural effusion or pneumothorax. Partial visualization of left humeral. IMPRESSION: No acute abnormality and in particular no evidence of pneumonia ACT 112: Negative or not required by law. Electronically signed by: Frandy Christie M.D. 09/27/2021 11:[address] SCAN OF THE ABDOMEN AND PELVIS WITH IV CONTRAST CLINICAL HISTORY: Nausea and vomiting. Diarrhea. GI bleeding. COMPARISON STUDY: Abdominal CT dated 09/01/2021. TECHNIQUE: Following the IV administration of identified cc of Optiray 320, CT scan of the abdomen and pelvis is performed from the lung bases to the proximal femora. Images are reviewed in the axial, sagittal, and coronal planes. IV contrast was administered without complication. A dose lowering technique was utilized adhering to the principles of ALARA. The examination is compromised by motion artifact as well as streak artifact from the arms which could not be elevated above the abdomen. CT DOSE: 604.85 mGy.cm FINDINGS: Lung bases: The heart is mildly enlarged and without pericardial effusion. The coronary arteries are densely calcified. There is a small hiatal hernia. The lung bases are clear noting bibasilar scarring/atelectasis. Liver: The contrast-enhanced liver is normal in size, contour, and attenuation. There is moderate intrahepatic biliary ductal dilatation. The hepatic veins and portal veins are patent. Gallbladder: Surgically absent noting clips in the gallbladder fossa. The common bile duct is dilated measuring up to 1.6 cm in diameter. Spleen: Normal in size and attenuation. Pancreas: The pancreas is moderately atrophic and grossly unremarkable. Adrenal glands: Unremarkable. Kidneys: The contrast enhanced kidneys demonstrate cortical atrophy and are without hydronephrosis. The kidneys enhance symmetrically. Bilateral renal cysts measure up to 5.8 cm. Additional subcentimeter cortical hypodensities also likely represent cysts but are too small for definitive characterization. There are least 3 nonobstructing calculi in the left renal pelvis measuring up to 5 mm. An additional 8 mm nonobstructing calculus is seen in the left lower pole. Abdominal vasculature: The abdominal aorta is normal in course and caliber noting mild atherosclerotic calcification. Bowel: A small gastric diverticulum is seen in the fundal region. There is no bowel obstruction. There is significant wall thickening and mucosal hyperemia involving the proximal duodenum with surrounding inflammation. There is an apparent defect within the duodenal mucosa on axial image #149. The appendix is not visualized. Peritoneum: No acute peritoneal free air is identified. There is a small volume of pelvic ascites. There is a small fat-containing umbilical hernia. Lymphadenopathy: None. Pelvic viscera: Tiny foci of gas are noted within the bladder lumen. The bladder is otherwise normal as visualized. The uterus is surgically absent. No adnexal lesion is seen. Phleboliths are noted along the right gonadal vein. There is a fat-containing left inguinal hernia. Skeletal structures: The skeletal structures are osteopenic. There is moderate lumbosacral spondylosis. No lytic or blastic lesions are seen. Postoperative change is noted in the left humerus. IMPRESSION: 1. There is wall thickening and mucosal hyperemia seen involving proximal duodenum with significant surrounding inflammation. There is an apparent mucosal defect identified within the proximal duodenum, and the appearance is highly concerning for duodenal ulcer with contained perforation. Duodenitis or less likely groove pancreatitis are differential considerations. 2. No intraperitoneal free air is identified and there is no organized fluid collection to suggest abscess. 3. Left-sided nephrolithiasis. 4. Moderate intra and extra hepatic biliary ductal dilatation is similar to previous. 5. Cardiomegaly. 6. Additional findings as above. Medications Administered Pantoprazole Sodium 40 mg/ (Dextrose) 100 mls @ 20 mls/hr IV Q5H PHOEBE Stop: 10/27/21 11:14 Last Admin: 09/27/21 12:37 Dose: 8 mg/hr, 20 mls/hr Documented by: [id number] Discontinued Medications Pantoprazole Sodium 80 mg/ (Dextrose) 120 mls @ 400 mls/hr IV NOW ONE Stop: 09/27/21 11:17 Last Infusion: 09/27/21 12:34 Dose: 0 mls/hr Documented by: [id number] Admin: 09/27/21 12:16 Dose: 400 mls/hr Documented by: [id number] ECG Additional Comments: Normal sinus rhythm Left anterior fascicular block Abnormal ECG When compared with ECG of 09-SEP-2021 20:04, Nonspecific T wave abnormality, improved in Lateral leads Confirmed by Oracio Herrera ([id number]) on 09/27/2021 1:41:24 Code Status & VTE Plan Code Status CODE: DNR/DNI VTE: SCDS VTE Prophylaxis Plan VTE Prophylaxis will be ordered: Yes Supervising Physician Co-Signing Physician Notes I personally saw and examined the patient. I verified all javier points and agree with YAYA Abraham with the following exceptions and/or additions: 86 year old here with melena. Unable to get any history from patient due to known dementia. O/E HS 1+2, RRR, no murmur, Chest CTAB, Abdo soft, tender on right side without guarding, rebound tenderness or distension A/P Acute GI bleed - IV pantoprazole bolus and drip. Repeat H&H 8.1, recommend [address]BC [address]PO[address] concerning for contained perforation of duodenal ulcer - started on IV Zosyn. Consult gastroenterology. Hypercalcemia - corrected calcium 11. Suspect from mild dehydration from acute GI bleed. Repeat level in AM after blood transfusion. PG Care Time/CCT Total # of Minutes Spent Total Time Spent with Patient: Total time spent is greater than 50% in coordination of care (as documented) at patient's floor/unit and/or counseling patient: Coding Level of Care Code INT OBSERVATION CARE 70M LVL 3 Diagnoses GI bleed K92.2 Acute hypotension I95.9 Anemia due to blood loss D50.0 Polymyalgia rheumatica M35.3 Gastroesophageal reflux K21.9 Type 2 diabetes mellitus E11.9 Ureterolithiasis N20.1 Cognitive impairment R41.89 SIRS (systemic inflammatory response syndrome) R65.10
[2021-09-27] MEDS ORDERED: OPTIRAY 320 100ml IV ONE (16:34)
--- NOTE | 2021-09-27 16:53 | CT Scan Report ---
CT SCAN OF THE ABDOMEN AND PELVIS WITH IV CONTRAST CLINICAL HISTORY: Nausea and vomiting. Diarrhea. GI bleeding. COMPARISON STUDY: Abdominal CT dated 09/01/2021. TECHNIQUE: Following the IV administration of identified cc of Optiray 320, CT scan of the abdomen a nd pelvis is performed from the lung bases to the proximal femora. Images are reviewed in the axial, sagittal, and coronal planes. IV contrast was administered without complication. A dose lowering tech nique was utilized adhering to the principles of ALARA. The examination is compromised by motion iza fact as well as streak artifact from the arms which could not be elevated above the abdomen. CT DOSE: 604.85 mGy.cm FINDINGS: Lung bases: The heart is mildly enlarged and without pericardial effusion. The coronary arteries are densely calcified. There is a small hiatal hernia. The lung bases are clear noting bibasilar scarring /atelectasis. Liver: The contrast-enhanced liver is normal in size, contour, and attenuation. There is moderate int rahepatic biliary ductal dilatation. The hepatic veins and portal veins are patent. Gallbladder: Surgically absent noting clips in the gallbladder fossa. The common bile duct is dilated measuring up to 1.6 cm in diameter. Spleen: Normal in size and attenuation. Pancreas: The pancreas is moderately atrophic and grossly unremarkable. Adrenal glands: Unremarkable. Kidneys: The contrast enhanced kidneys demonstrate cortical atrophy and are without hydronephrosis. T he kidneys enhance symmetrically. Bilateral renal cysts measure up to 5.8 cm. Additional subcentimete r cortical hypodensities also likely represent cysts but are too small for definitive characterizatio n. There are least 3 nonobstructing calculi in the left renal pelvis measuring up to 5 mm. An additio nal 8 mm nonobstructing calculus is seen in the left lower pole. Abdominal vasculature: The abdominal aorta is normal in course and caliber noting mild atheroscleroti c calcification. Bowel: A small gastric diverticulum is seen in the fundal region. There is no bowel obstruction. Ther e is significant wall thickening and mucosal hyperemia involving the proximal duodenum with surroundi ng inflammation. There is an apparent defect within the duodenal mucosa on axial image #149. The appe ndix is not visualized. Peritoneum: No acute peritoneal free air is identified. There is a small volume of pelvic ascites. Th ere is a small fat-containing umbilical hernia. Lymphadenopathy: None. Pelvic viscera: Tiny foci of gas are noted within the bladder lumen. The bladder is otherwise normal as visualized. The uterus is surgically absent. No adnexal lesion is seen. Phleboliths are noted grant g the right gonadal vein. There is a fat-containing left inguinal hernia. Skeletal structures: The skeletal structures are osteopenic. There is moderate lumbosacral spondylosi s. No lytic or blastic lesions are seen. Postoperative change is noted in the left humerus. IMPRESSION: 1. There is wall thickening and mucosal hyperemia seen involving proximal duodenum with significant s urrounding inflammation. There is an apparent mucosal defect identified within the proximal duodenum, and the appearance is highly concerning for duodenal ulcer with contained perforation. Duodenitis or less likely groove pancreatitis are differential considerations. 2. No intraperitoneal free air is identified and there is no organized fluid collection to suggest ab scess. 3. Left-sided nephrolithiasis. 4. Moderate intra and extra hepatic biliary ductal dilatation is similar to previous. 5. Cardiomegaly. 6. Additional findings as above. ACT 112: Negative or not required by law. Electronically signed by: Chandan Scott M.D. 09/27/2021 4:52 PM
[2021-09-27] MEDS ORDERED: PIPERACILL/TAZOBAC CONSULT ACTIVE PRN (17:05)
[2021-09-27] MEDS ORDERED: PIPERACILLIN/TAZOBACTAM 3.375 GM in DEXTROSE 5% 100 ML IV ONE (17:30)
[2021-09-27] MEDS ORDERED: SODIUM CHLORIDE 0.9% 250 ML IV PRN ×2 (17:54→17:55)
[2021-09-27] MEDS ORDERED: NYSTATIN POWDER 15GM BTL EXT PRN (18:10)
[2021-09-27] MEDS ORDERED: ACETAMINOPHEN 325 MG TAB PO PRN (18:10)
[2021-09-27] MEDS ORDERED: DEXTROSE 50% 50 ML SYRINGE IV PRN (19:28)
[2021-09-27] MEDS ORDERED: GLUCAGON FOR INJ 1 MG VIAL SQ PRN (19:28)
[2021-09-27] MEDS ORDERED: GLUCOSE 40% GEL 15 GM TUBE PO PRN (19:28)
[2021-09-27] MEDS ORDERED: GLUCOSE 10 TABS/TUBE PO PRN (19:28)
[2021-09-27] MEDS ORDERED: CARBOHYDRATES FOR HYPOGLYCEMIA PO PRN (19:28)
[2021-09-27] MEDS: INSULIN ASPART PER UNIT SC SCH (20:02)
[2021-09-27] MEDS: INSULIN GLARGINE SOLOSTAR 100 UNITS/ML 3 ML PEN SC SCH (21:06)
[2021-09-27] MEDS: ACETAMINOPHEN 325 MG TAB PO SCH ×2 (22:48→23:00)
[2021-09-27] MEDS: SIMVASTATIN 20 MG TAB PO SCH (22:49)
[2021-09-27] MEDS: DONEPEZIL HCL 10 MG TAB PO SCH (22:49)
[2021-09-27] MEDS: PIPERACILLIN/TAZOBACTAM 3.375 GM in DEXTROSE 5% 100 ML IV SCH (22:59)
[2021-09-28 02:46] LABS: Basophils # (auto) 0.01 K/uL (0-0.2); Basophils % (auto) 0.1 %; Eosinophils # (auto) 0.08 K/uL (0-0.5); Eosinophils % (auto) 0.6 %; Hematocrit (blood only) 32.7 % (37-47); Hemoglobin 10.7 g/dL (12.0-16.0); Immature Granulocytes # (auto) 0.05 K/uL (0.00-0.02); Immature Granulocytes % (auto) 0.4 %; Lymphocytes # (auto) 2.04 K/uL (1.2-3.4); Lymphocytes % (auto) 16.5 %; Mean Corpuscular Hemoglobin 31.2 pg (25-34); Mean Corpuscular Hgb Conc 32.7 g/dL (32-36); Mean Corpuscular Volume 95.3 fL (80-100); Mean Platelet Volume 10.4 fL (7.4-10.4); Monocytes # (auto) 1.15 K/uL (0.11-0.59); Monocytes % (auto) 9.3 %; Neutrophils % (auto) 73.1 %; Platelet Count 239 K/uL (130-400); RDW Coefficient of Variation 17.1 % (11.5-14.5); RDW Standard Deviation 57.7 fL (36.4-46.3); Red Blood Count 3.43 M/uL (4.2-5.4); White Blood Count 12.33 K/uL (4.8-10.8)
[2021-09-28 03:03] LABS: Calcium 10.3 mg/dl (8.5-10.1); Creatinine Clr Calc Pharmacy 50.7 ml/min; Est GFR (African American) 82.9 ml/min; Est GFR (Non-African American) 71.5 ml/min; Magnesium 1.8 mg/dl (1.7-2.4); Potassium 3.9 mmol/L (3.5-5.1)
[2021-09-28] MEDS: PANTOprazole 40 MG in DEXTROSE 5% 100 ML IV SCH ×4 (03:24→19:51)
[2021-09-28] MEDS: INSULIN GLARGINE SOLOSTAR 100 UNITS/ML 3 ML PEN SC SCH ×2 (06:11→16:56)
[2021-09-28] MEDS: PIPERACILLIN/TAZOBACTAM 3.375 GM in DEXTROSE 5% 100 ML IV SCH ×2 (07:43→16:19)
[2021-09-28] MEDS: INSULIN ASPART PER UNIT SC SCH ×3 (07:44→16:56)
--- NOTE | 2021-09-28 08:38 | Gastrointestinal Consultation ---
Date of Consultation September 28, 2021 Assessment & Plan (1) Melena: (2) Abnormal CT of the abdomen: 86 yr old female w melena, anemia, CT suggestive of duodenal abnormality. Clinical picture suggests duodenitis or duodenal ulcer dx. NPO Agree with PPI Plan for EGD today by Dr. Honeycutt. Further recommendations to follow EGD. Will reach out to NOK for consent. Supervising Physician Co-Signing Physician Notes I performed a history and physical examination of the patient today, including specifically on physical exam - soft abdomen. I have discussed the patient's management with the advanced practitioner. Please refer to the nurse practitioner's note for the documented findings and plan of care. EGD today I discussed the risk with her NOK who consented. History of Present Illness Reason for Consultation: UGI Bleed Requesting Physician: YAYA Abraham Attending Physician: Ahmet Truong MD History of Present Illness Ms. Zina Castañeda is an 86 yr old female pt of Dr. Aniket Drake with a hx of dementia, A fib (not anticoagulated), HTN, DM, polymyalgia Rheumatica who lives at [facility]. Care providers there arranged ambulance transport to [facility] ED yesterday 09/27 because she has had black BMs. On arrival, CTAP w IV with suggested duodenal wall thickening. Her Hb on arrival was 8.3, down from 12 earlier this month. After receiving a unit of RBCs, Hb is 10.7 this morning. BUN is 57. This morning's nursing care providers do not believe that she has had any black BMs since arrival. One loose BM was documented on overnight babysitter w/o mention of color. She remains hemodynamically stable. Urine was + for nitrites and WBCs. On exam, she is uncomfortable with any palpation of the abdomen. When asked to show me her area of pain, she places her hand on her epigastric area. She is able to tell me her name but seems to answer yes to all other questions. Allergies Allergy/AdvReac Type Severity Reaction Status Date / Time adhesive Allergy Intermediate SKIN Verified 09/27/21 11:19 BLISTERS tetanus toxoid, adsorbed Allergy Mild EDEMA AT Verified 09/27/21 11:19 SITE codeine AdvReac Intermediate HEART Verified 09/27/21 11:19 PALPITATIONS, RECIEVED MORPHINE IV IN 2004 ADMIT Home Medications Medication Instructions Recorded Confirmed Type incontinence pad, liner, disp #168 ea 08/11/19 06/22/21 Rx (Overnight Pad For Women) pen needle, diabetic, safety 30 #100 ea 06/28/20 06/22/21 Rx gauge x 1/3" (Novofine Autocover) nystatin 100,000 unit/gram topical 1 applic TOP BID PRN #60 gm 09/27/20 09/27/21 Rx powder blood sugar diagnostic (OneTouch #200 ea 11/14/20 06/22/21 Rx Ultra Blue Test Strip) pen needle,diabetic dual safty 30 #200 ea 11/14/20 06/22/21 Rx gauge x 3/16" (BD AutoShield Duo Pen Needle) diclofenac sodium 1 % topical gel 4 g TOPICAL DAILY PRN 05/05/21 09/27/21 History carvedilol 3.125 mg tablet (Coreg) 3.125 mg PO BID17 #60 tab 05/29/21 09/27/21 Rx cholecalciferol (vitamin D3) 50 2,000 unit PO QAM #30 cap 05/29/21 09/27/21 Rx mcg (2,000 unit) capsule donepezil 10 mg tablet (Aricept) 10 mg PO HS #90 tab 05/29/21 09/27/21 Rx lisinopril 20 mg tablet 20 mg PO QAM #90 tab 05/29/21 09/27/21 Rx simvastatin 20 mg tablet 20 mg PO HS #90 tab 05/29/21 09/27/21 Rx prednisone 20 mg tablet 20 mg PO QAM #90 tab 07/10/21 09/27/21 Rx lancets 30 gauge (ReadyLance #200 ea 07/11/21 Rx Safety Lancets) acetaminophen 325 mg tablet 650 mg PO TID MDD 3 GRAMS/24 HOURS 09/01/21 09/27/21 History methyl salicylate 15 %-menthol 10 1 applic TOPICAL QID 09/01/21 09/27/21 History % topical cream cyanocobalamin (vitamin B-12) 1,000 mcg PO DAILY #30 cap 09/12/21 09/27/21 Rx 1,000 mcg capsule Zofran Solution 8 mg IV Q8 PRN 09/27/21 09/27/21 History acetaminophen 325 mg tablet 650 mg PO Q4 PRN MDD 3g 09/27/21 09/27/21 History ciprofloxacin 400 mg/200 mL in 5 % 400 mg IV Q12H 09/27/21 09/27/21 History dextrose intravenous piggyback insulin glargine 100 unit/mL (3 8 unit SC Q12H 09/27/21 09/27/21 History mL) subcutaneous pen (Lantus Solostar U-100 Insulin) nystatin 100,000 unit/mL oral 5 ml PO QID 09/27/21 09/27/21 History suspension Patient History Medical History (Updated 09/28/21 @ 10:17 by Nate Avina MD) Acute shoulder pain Anemia Atrial fibrillation Developed intraoperatively on 06/15/2019. 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 Cognitive impairment Complicated UTI (urinary tract infection) Dementia Depression Diabetes Encounter for pre-operative examination Gait instability Gastroesophageal reflux History of respiratory failure Hx of fall Hx pulmonary embolism Hx: UTI (urinary tract infection) Hydronephrosis with obstructing calculus Hyperlipidemia Knee pain Lumbago Lumbar facet joint syndrome Paroxysmal atrial fibrillation Spinal stenosis, lumbar region without neurogenic claudication Type 2 diabetes mellitus Vitamin D deficiency Weakness Surgical History H/O cystoscopy cyst with L stent: 06/15/2019 at [facility]. MAC. Patient given insulin for hyperglycemia and metoprolol and cardizem intraop H/O: hysterectomy History of appendectomy History of knee replacement procedure of left knee History of knee replacement procedure of right knee History of open reduction and internal fixation (ORIF) procedure L HUMEROUS Hx of cholecystectomy Hx of excision of epidermal inclusion cyst Hx of tonsillectomy Presence urogenital implant Family History Sister Diabetes Stroke Brother Diabetes Prostate cancer Father Lung disease Social History Smoking Status: Unknown if ever smoked Cigarettes Per Day: UTO; Tobacco Cessation Education Requested by Patient: No Preferred Language: French Communication Ability: Impaired Communication Ability Comment: communication impaired Communication Tools: Picture Board, Facial Expression, Physical Gestures and Lip Movement/Reading Visual Impairment: Limited Hearing Ability: Hard of Hearing [place] Operator Required: Yes Beliefs That Will Affect Care: None Current Living Situation: Senior Care Current Living Situation Comment: From [facility] current occupational status: retired How many Children do You have: 1 Feels Safe at Home: Declines to Answer caffeine: No Seatbelt Use: always Assistive Devices: Wheelchair Assistive Devices Comment: sam lift Review of Systems Review of Systems: Unable to obtain from patient. Physical Exam Constitutional: well developed, + ill appearing, cooperative and + overweight Eyes: PERRL, conjunctivae normal, anicteric sclerae ENMT: external ear and nose normal, oropharynx normal Neck: trachea midline, no thyromegaly Respiratory: normal respiratory effort, lungs clear to auscultation Cardiovascular: RRR, no murmur, no edema Gastrointestinal (Abdomen): Inspection/Auscultation: abdomen normal to inspection and normal bowel sounds; abdomen not distended and no abdominal edema Percussion/Palpation: + abdomen tender (Mild diffuse epigastric tenderness. No signs of acute abdomen.) and abdomen soft; no guarding and abdomen not rigid Skin: no rashes, warm and dry normal turgor and + pallor Neurologic: PERRL, EOMI, accommodation nl, no face palsy, no dysarthria awake; not confused Psychiatric: A+Ox3, euthymic affect Lymphatic: no cervical or axillary lymphadenopathy Results & Data ([facility]) Vital Signs (Past 12 Hours) Vital Signs Temp Pulse Pulse Resp BP BP Pulse Ox 09/28/21 07:46 36.4 C L 69 18 120/59 L 94 09/28/21 02:58 36.6 C 68 16 115/61 95 09/28/21 00:46 91 H 09/27/21 23:29 36.7 C 76 16 134/76 99 09/27/21 22:29 36.4 C L 80 16 120/61 97 09/27/21 21:29 36.4 C L 81 16 85/60 L 100 09/27/21 20:59 36.3 C L 84 14 103/52 L 100 09/27/21 20:44 36.5 C 87 16 96/54 L 99 Laboratory Results WBC 12.3, Hb 10.7, Hct 32.7, Plts 239, INR 1.1, Na 139, K 3.9, Cl 107, CO2 27, BUN 5, Cr 57, Plts 150. Diagnostic Findings CTAP w IV contrast on 09/28/21: 1. There is wall thickening and mucosal hyperemia seen involving proximal duodenum with significant surrounding inflammation. There is an apparent mucosal defect identified within the proximal duodenum, and the appearance is highly concerning for duodenal ulcer with contained perforation. Duodenitis or less likely groove pancreatitis are differential considerations. 2. No intraperitoneal free air is identified and there is no organized fluid collection to suggest abscess. 3. Left-sided nephrolithiasis. 4. Moderate intra and extra hepatic biliary ductal dilatation is similar to previous. 5. Cardiomegaly. 6. Additional findings as above.
[2021-09-28] MEDS ORDERED: predniSONE 20 MG TAB PO SCH (09:00)
[2021-09-28] MEDS: ACETAMINOPHEN 325 MG TAB PO SCH ×3 (09:04→23:33)
[2021-09-28] MEDS: HYDROCORTISONE SOD 50 MG in SYRINGE 0 ML IV SCH ×2 (09:30→16:57)
[2021-09-28] MEDS: SODIUM CHLORIDE 0.9% 1000ML 1,000 ML IV SCH ×2 (09:30→23:35)
--- NOTE | 2021-09-28 10:19 | Anesthesiology Consultation ---
Date of Service September 28, 2021 Assessment & Plan (1) Encounter for pre-operative examination: Chart Review Chart Review: Acceptable Risk for Surgery History Surgery Operation Date: 09/28/21 16:15 Proposed Procedures p Esophagogastroduodenoscopy Dr Honeycutt - Veena Honeycutt MD Height/Weight Height: 5 ft 6 in Weight: 66.8 kg Allergies Allergy/AdvReac Type Severity Reaction Status Date / Time adhesive Allergy Intermediate SKIN Verified 09/27/21 11:19 BLISTERS tetanus toxoid, adsorbed Allergy Mild EDEMA AT Verified 09/27/21 11:19 SITE codeine AdvReac Intermediate HEART Verified 09/27/21 11:19 PALPITATIONS, RECIEVED MORPHINE IV IN 2004 ADMIT Medications Home Medications Medication Instructions Recorded Confirmed Last Taken incontinence pad, liner, disp #168 ea 08/11/19 06/22/21 Unknown (Overnight Pad For Women) pen needle, diabetic, safety 30 #100 ea 06/28/20 06/22/21 Unknown gauge x 1/3" (Novofine Autocover) nystatin 100,000 unit/gram topical 1 applic TOP BID PRN #60 gm 09/27/20 09/27/21 Unknown powder blood sugar diagnostic (OneTouch #200 ea 11/14/20 06/22/21 Unknown Ultra Blue Test Strip) pen needle,diabetic dual safty 30 #200 ea 11/14/20 06/22/21 Unknown gauge x 3/16" (BD AutoShield Duo Pen Needle) diclofenac sodium 1 % topical gel 4 g TOPICAL DAILY PRN 05/05/21 09/27/21 Unknown carvedilol 3.125 mg tablet (Coreg) 3.125 mg PO BID17 #60 tab 05/29/21 09/27/21 09/01/21 07:30 cholecalciferol (vitamin D3) 50 2,000 unit PO QAM #30 cap 05/29/21 09/27/21 09/01/21 07:30 mcg (2,000 unit) capsule donepezil 10 mg tablet (Aricept) 10 mg PO HS #90 tab 05/29/21 09/27/21 08/31/21 21:00 lisinopril 20 mg tablet 20 mg PO QAM #90 tab 05/29/21 09/27/21 09/01/21 07:30 simvastatin 20 mg tablet 20 mg PO HS #90 tab 05/29/21 09/27/21 08/31/21 21:00 prednisone 20 mg tablet 20 mg PO QAM #90 tab 07/10/21 09/27/21 09/01/21 07:30 lancets 30 gauge (ReadyLance #200 ea 07/11/21 Unknown Safety Lancets) acetaminophen 325 mg tablet 650 mg PO TID MDD 3 GRAMS/24 HOURS 09/01/21 09/27/21 09/01/21 07:30 methyl salicylate 15 %-menthol 10 1 applic TOPICAL QID 09/01/21 09/27/21 09/01/21 07:30 % topical cream cyanocobalamin (vitamin B-12) 1,000 mcg PO DAILY #30 cap 09/12/21 09/27/21 Unknown 1,000 mcg capsule Zofran Solution 8 mg IV Q8 PRN 09/27/21 09/27/21 Unknown acetaminophen 325 mg tablet 650 mg PO Q4 PRN MDD 3g 09/27/21 09/27/21 Unknown ciprofloxacin 400 mg/200 mL in 5 % 400 mg IV Q12H 09/27/21 09/27/21 Unknown dextrose intravenous piggyback insulin glargine 100 unit/mL (3 8 unit SC Q12H 09/27/21 09/27/21 Unknown mL) subcutaneous pen (Lantus Solostar U-100 Insulin) nystatin 100,000 unit/mL oral 5 ml PO QID 09/27/21 09/27/21 Unknown suspension Active Medications Generic Name Dose Route Start Last Admin Trade Name Freq PRN Reason Stop Dose Admin Acetaminophen 650 mg 09/27/21 18:10 09/28/21 09:04 Acetaminophen 325 Mg Tab PO 10/27/21 18:09 Not Given TID PHOEBE Donepezil HCl 10 mg 09/27/21 21:00 09/27/21 22:49 Donepezil Hcl 10 Mg Tab PO 10/27/21 20:59 Not Given HS PHOEBE Pantoprazole Sodium 40 mg/ 100 mls @ 20 mls/hr 09/27/21 11:15 09/28/21 07:43 Dextrose IV 10/27/21 11:14 8 mg/hr Q5H PHOEBE 20 mls/hr Administration 8 MG/HR Piperacillin Sod/Tazobactam 115 mls @ 28.75 mls/hr 09/28/21 00:00 09/28/21 07:43 Sod 3.375 gm/ Dextrose IV 10/08/21 00:00 28.8 mls/hr Q8H PHOEBE Administration Protocol Hydrocortisone Sodium 1 mls @ 4 mls/min 09/28/21 09:00 09/28/21 09:30 Succinate 50 mg/ Syringe IV 10/28/21 08:59 4 mls/min Q8H PHOEBE Administration Sodium Chloride 1,000 mls @ 80 mls/hr 09/28/21 09:00 09/28/21 09:30 Nss 1000ml IV 10/28/21 08:59 80 mls/hr .[id number] PHOEBE Administration Insulin Aspart 0 units 09/27/21 21:00 09/28/21 07:44 Insulin Aspart Per Unit SC 10/27/21 20:59 Not Given ACHS PHOEBE Insulin Glargine 8 units 09/27/21 18:10 09/28/21 06:11 Insulin Glargine Solostar 100 Units/Ml 3 Ml Pen SC 10/27/21 18:09 8 units Q12H PHOEBE Administration Simvastatin 20 mg 09/27/21 21:00 09/27/21 22:49 Simvastatin 20 Mg Tab PO 10/27/21 20:59 Not Given HS PHOEBE Past Medical History Medical History (Updated 09/28/21 @ 10:17 by Nate Avina MD) Acute shoulder pain Anemia Atrial fibrillation Developed intraoperatively on 06/15/2019. 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 Cognitive impairment Complicated UTI (urinary tract infection) Dementia Depression Diabetes Encounter for pre-operative examination Gait instability Gastroesophageal reflux History of respiratory failure Hx of fall Hx pulmonary embolism Hx: UTI (urinary tract infection) Hydronephrosis with obstructing calculus Hyperlipidemia Knee pain Lumbago Lumbar facet joint syndrome Paroxysmal atrial fibrillation Spinal stenosis, lumbar region without neurogenic claudication Type 2 diabetes mellitus Vitamin D deficiency Weakness Past Family History Family History Sister Diabetes Stroke Brother Diabetes Prostate cancer Father Lung disease Past Surgical History Surgical History H/O cystoscopy cyst with L stent: 06/15/2019 at [facility]. MAC. Patient given insulin for hyperglycemia and metoprolol and cardizem intraop H/O: hysterectomy History of appendectomy History of knee replacement procedure of left knee History of knee replacement procedure of right knee History of open reduction and internal fixation (ORIF) procedure L HUMEROUS Hx of cholecystectomy Hx of excision of epidermal inclusion cyst Hx of tonsillectomy Presence urogenital implant Social History Smoking Status: Unknown if ever smoked Smoking cigarettes per day: UTO Alcohol type: wine alcohol intake frequency: holidays/special occasions only substance use type: does not use Physical Exam Vital Signs Last Vital Signs Temp 36.4 C L 09/28/21 07:46 Pulse 69 09/28/21 08:00 Resp 18 09/28/21 07:46 BP 120/59 L 09/28/21 07:46 Pulse Ox 94 09/28/21 07:46 Testing Laboratory Results 09/28/21 02:26 09/28/21 02:26 PT 11.6 Seconds (9.0-12.0) 09/27/21 11:29 INR 1.1 (0.9-1.1) 09/27/21 11:29 APTT < 20.0 Seconds (21.0-31.0) L 09/27/21 11:29 Urine Color Yellow 09/27/21 13:38 Urine Appearance Clear (Clear) 09/27/21 13:38 Urine pH 5.0 (4.5-7.5) 09/27/21 13:38 Ur Specific [place] 1.023 (1.000-1.030) 09/27/21 13:38 Urine Protein Negative (Negative) 09/27/21 13:38 Urine Glucose (UA) Trace (Negative) H 09/27/21 13:38 Urine Ketones Negative (Negative) 09/27/21 13:38 Urine Nitrite Positive (Negative) A 09/27/21 13:38 Ur Leukocyte Esterase Trace (Negative) H 09/27/21 13:38 Urine WBC (Auto) 10-30 /hpf (0-5) H 09/27/21 13:38 Urine RBC (Auto) 0-4 /hpf (0-4) 09/27/21 13:38 U Hyaline Cast (Auto) 0 /lpf (0-5) 09/27/21 13:38 U Epithel Cells (Auto) 20-30 /lpf (0-5) H 09/27/21 13:38 Urine Bacteria (Auto) Negative (Negative) 09/27/21 13:38 Blood Type A Positive 09/27/21 11:29 Antibody Screen NEGATIVE 09/27/21 11:29 09/28/21 09/28/21 07:32 02:06 POC Glucose 150 H 187 H Electrocardiogram Date: 09/27/21 Findings: + NSR @ (87) Echocardiogram Date: 09/02/21 EF: 60-65% LV Function: normal Valvular Disease: + no significant valvular disease
[2021-09-28] MEDS ORDERED: PROPOFOL IV EMULSION 10 MG/ML 20 ML VIAL IV ONE (10:56)
[2021-09-28] MEDS ORDERED: LIDOCAINE 2% 2 ML VIAL/AMP(20MG/ML) INFIL ONE (10:56)
--- NOTE | 2021-09-28 12:13 | GI REPORT ---
Patient Name: Zina Castañeda Procedure Date: 09/28/2021 11:13 AM Date of : 1935 Admit Type: Inpatient Age: 86 Gender: Female Attending MD: Veena Honeycutt MD Procedure: Upper GI endoscopy Providers: Veena Honeycutt MD Referring MD: Ahmet Truong Indications: Melena Medicines: Propofol per Anesthesia Complications: No immediate complications. Estimated Blood Loss: Estimated blood loss: none. Procedure: Pre-Anesthesia Assessment: - Prior to the procedure, a History and Physical was performed, and patient medications, allergies and sensitivities were reviewed. The patient's tolerance of previous anesthesia was reviewed. - The alternatives, risks and benefits of the procedure were discussed at length with the patient's son. The patient's proxy verbalized understanding of the risks as well as the alternatives and wished to proceed with the procedure. - Patient identification and proposed procedure were verified prior to the procedure by the physician and the nurse. The procedure was verified in the procedure room. - Pre-procedure physical examination revealed no contraindications to sedation. After obtaining informed consent, the endoscope was passed under direct vision. Throughout the procedure, the patient's blood pressure, pulse, and oxygen saturations were monitored continuously. The Endoscope was introduced through the mouth, and advanced to the second part of duodenum. The upper GI endoscopy was accomplished without difficulty. The patient tolerated the procedure well. Findings: A small hiatal hernia was present. The examined esophagus was normal. The entire examined stomach was normal. Many non-bleeding cratered duodenal ulcers with stigmata of bleeding were found in the duodenal bulb and in the second portion of the duodenum. The largest lesion was 20 mm in largest dimension. There was mild blood oozing from the edges of one of the ulcers, Coagulation for hemostasis using bipolar probe was successful. Impression: - Small hiatal hernia. - Normal esophagus. - Normal stomach. - Non-bleeding duodenal ulcers with no stigmata of bleeding. Treated with bipolar cautery. - No specimens collected. Recommendation: - [facility] care. - Clear liquid diet today. - No aspirin, ibuprofen, naproxen, or other non-steroidal anti-inflammatory drugs. - Use a proton pump inhibitor IV daily for 2 days then PO BID for 2 months then once daily lifelong. Veena Honeycutt MD 09/28/2021 12:12:50 PM This report has been signed electronically. Note Initiated On: 09/28/2021 11:13 AM Number of Addenda: 0 I attest to the content of the Intraoperative Record and orders documented therein, exceptions below {[id number]}
--- NOTE | 2021-09-28 12:48 | Anesthesiology Progress Note ---
Date of Service September 28, 2021 Anesthesia Post Procedure Vital Signs Vital Signs: Temp Pulse Pulse Pulse Resp BP BP 09/28/21 12:29 69 17 108/63 09/28/21 12:15 69 18 120/59 L 09/28/21 12:00 74 12 115/61 09/28/21 11:03 36.9 C 70 19 148/53 H 09/28/21 08:00 69 09/28/21 07:46 36.4 C L 69 18 120/59 L 09/28/21 02:58 36.6 C 68 16 115/61 09/28/21 00:46 91 H 09/27/21 23:29 36.7 C 76 16 134/76 09/27/21 22:29 36.4 C L 80 16 120/61 09/27/21 21:29 36.4 C L 81 16 85/60 L 09/27/21 20:59 36.3 C L 84 14 103/52 L 09/27/21 20:44 36.5 C 87 16 96/54 L 09/27/21 20:25 36.7 C 94 H 16 116/86 09/27/21 20:19 36.5 C 87 16 97/63 L 09/27/21 19:47 36.7 C 94 H 16 116/86 09/27/21 18:42 95 H 20 09/27/21 14:36 95 H 12 BP Pulse Ox 09/28/21 12:29 97 09/28/21 12:15 100 09/28/21 12:00 100 09/28/21 11:03 95 09/28/21 08:00 09/28/21 07:46 94 09/28/21 02:58 95 09/28/21 00:46 09/27/21 23:29 99 09/27/21 22:29 97 09/27/21 21:29 100 09/27/21 20:59 100 09/27/21 20:44 99 09/27/21 20:25 98 09/27/21 20:19 95 09/27/21 19:47 98 09/27/21 18:42 104/54 L 95 09/27/21 14:36 115/62 94 Transfer of Care Handoff Completed per policy Notes Mental Status: alert / awake / arousable Patient Amnestic to Procedure: Yes Nausea / Vomiting: adequately controlled Pain: adequately controlled Airway Patency, RR, SpO2: stable & adequate BP & HR: stable & adequate Hydration State: stable & adequate Anesthetic Complications: no major complications apparent
--- NOTE | 2021-09-28 14:42 | Hospitalist Progress Note ---
Date of Service September 28, 2021 Assessment & Plan (1) GI bleed: Plan: EGD reveals multiple duodenal ulcers with stigmata of recent hemorrhage but no active bleeding. She is on a proton pump inhibitor intravenously and Carafate has been added. Appreciate gastroenterology assistance. She is now on a clear liquid diet. (2) Acute hypotension: Plan: Currently resolved. Continue IV fluids. Transfuse as necessary. Telemetry (3) Anemia due to blood loss: Plan: Hemoglobin 10.7 this morning. Will follow (4) SIRS (systemic inflammatory response syndrome): Plan: Now resolved. No evidence of bacterial sepsis. She is on Zosyn however, day 2. HX C. Diff gene positive- TOXIN NEGATIVE (5) Polymyalgia rheumatica: Plan: Steroid-dependent. Currently on parenteral steroid therapy and will switch back to oral prednisone later this admission. (6) Gastroesophageal reflux: Plan: ontinue PPI therapy indefinitely (7) Type 2 diabetes mellitus: Plan: On Lantus BID. Currently clear liquids. Advance as tolerated to ADA diet. Sliding scale insulin coverage as needed (8) Ureterolithiasis: Plan: CTA abdomen and pelvis previous admission with 8mm- non obstructing. No intervention necessary at this time (9) Cognitive impairment: Plan: Baseline dementia- poor cognitive function . Continue donepezil Plan: Disposition: To be determined. Will obtain OT and PT assessments when appropriate. Admission and Anticipated Discharge Date Admission Date: September 27, 2021 Subjective The patient is seen post EGD. She is still somnolent but stable. Case discussed with gastroenterology. Multiple duodenal ulcer seen with some evidence of recent bleeding but no active hemorrhage. Clear liquids are now allowed and she is on parenteral proton pump inhibitor and Carafate has been added. MRCP is pending. She will receive her steroids parenterally temporarily. She has known steroid dependence. Continue IV fluids at judicious rate. Review of Systems Review of Systems: Unable to assess review of systems due to somnolence post EGD Physical Exam Physical Exam: General-somnolent post EGD. HEENT-head atraumatic and normocephalic, normal appearing conjunctiva. Pupils are equal. Neck-no lymphadenopathy or thyromegaly, trachea midline Chest-clear to auscultation percussion. No rales wheezing or rhonchi Cardiac-regular rate and rhythm, normal S1 and S2, no murmurs Abdomen-normal bowel sounds, nontender, no hepatosplenomegaly Extremities-no cyanosis, clubbing, or edema Neuro-no apparent focal motor deficits. Psych-somnolent post EGD anesthesia Results & Data Results & Data ([facility]) Vital Signs (Past 12 Hours) Vital Signs Temp Pulse Pulse Pulse Resp BP Pulse Ox 09/28/21 12:29 69 17 108/63 97 09/28/21 12:15 69 18 120/59 L 100 09/28/21 12:00 74 12 115/61 100 09/28/21 11:03 36.9 C 70 19 148/53 H 95 09/28/21 08:00 69 09/28/21 07:46 36.4 C L 69 18 120/59 L 94 09/28/21 02:58 36.6 C 68 16 115/61 95 Laboratory Results 09/28/21 02:26 09/28/21 02:26 PG Care Time/CCT Total # of Minutes Spent Total Time Spent with Patient: Total time spent is greater than 50% in coordination of care (as documented) at patient's floor/unit and/or counseling patient: Coding Level of Care Code 59585 Subseq Hosp Care Lvl 3 Diagnoses GI bleed K92.2 Acute hypotension I95.9 Anemia due to blood loss D50.0 SIRS (systemic inflammatory response syndrome) R65.10 Polymyalgia rheumatica M35.3 Gastroesophageal reflux K21.9 Type 2 diabetes mellitus E11.9 Ureterolithiasis N20.1 Cognitive impairment R41.89
--- NOTE | 2021-09-28 15:48 | Magnetic Resonance Report ---
MR MRCP CLINICAL HISTORY: dilated bile ducts on CT TECHNIQUE: Multiplanar multisequence MR images of the abdomen were obtained, as per MRCP protocol. is protocol consists of 3 plane localizer images, axial T1, axial T2, axial T2 fat saturated, coronal T2, MRCP single and MRCP volume sequences of the abdomen were obtained, without intravenous contrast . 1 mg of intramuscular glucagon was administered.. COMPARISON: Comparison is made to CT abdomen pelvis 09/27/2021 FINDINGS: Lower chest: No acute abnormality Liver: Unremarkable. No focal lesions are seen. Gallbladder and biliary tree: Patient is status post cholecystectomy. Physiologic prominence of the b iliary ducts is noted. Smooth tapering is noted at the distal duct. Pancreas: Unremarkable, no focal lesions. Spleen: Unremarkable. Adrenals: Unremarkable. Kidneys and ureters: Bilateral renal cysts are seen. Bowel: Mild wall thickening of the proximal duodenum is again seen. Lymph nodes Retroperitoneal: Unremarkable. Mesenteric: Unremarkable. Peritoneum: Normal Vessels: Unremarkable. Abdominal wall: Unremarkable. Bones: Unremarkable. IMPRESSION: 1. Biliary ductal dilation is seen, favored to be physiologic in this patient with history of cholec ystectomy. 2. Multiple renal cysts are seen. No follow-up is required by ACR criteria. ACT 112: Negative or not required by law. Electronically signed by: Frandy Christie M.D. 09/28/2021 3:47 PM
[2021-09-28] MEDS: SUCRALFATE 1 GM TAB PO SCH ×2 (16:57→23:34)
[2021-09-28] MEDS: DONEPEZIL HCL 10 MG TAB PO SCH (23:33)
[2021-09-28] MEDS: SIMVASTATIN 20 MG TAB PO SCH (23:34)
[2021-09-29] MEDS: PANTOprazole 40 MG in DEXTROSE 5% 100 ML IV SCH ×7 (00:22→23:56)
[2021-09-29] MEDS: HYDROCORTISONE SOD 50 MG in SYRINGE 0 ML IV SCH ×4 (00:23→23:59)
[2021-09-29] MEDS: INSULIN ASPART PER UNIT SC SCH ×5 (00:41→21:38)
[2021-09-29] MEDS: PIPERACILLIN/TAZOBACTAM 3.375 GM in DEXTROSE 5% 100 ML IV SCH ×2 (00:43→08:35)
[2021-09-29] MEDS: SODIUM CHLORIDE 0.9% 1000ML 1,000 ML IV SCH ×2 (04:02→23:55)
[2021-09-29 07:35] LABS: Eosinophils # (auto) 0.01 K/uL (0-0.5); Eosinophils % (auto) 0.1 %; Hematocrit (blood only) 29.3 % (37-47); Hemoglobin 9.7 g/dL (12.0-16.0); Immature Granulocytes # (auto) 0.03 K/uL (0.00-0.02); Immature Granulocytes % (auto) 0.4 %; Lymphocytes # (auto) 1.15 K/uL (1.2-3.4); Lymphocytes % (auto) 16.1 %; Mean Corpuscular Hemoglobin 31.9 pg (25-34); Mean Corpuscular Hgb Conc 33.1 g/dL (32-36); Mean Corpuscular Volume 96.4 fL (80-100); Mean Platelet Volume 10.1 fL (7.4-10.4); Neutrophils # (auto) 5.46 K/uL (1.4-6.5); Neutrophils % (auto) 76.4 %; Platelet Count 217 K/uL (130-400); RDW Coefficient of Variation 17.2 % (11.5-14.5); RDW Standard Deviation 59.4 fL (36.4-46.3); Red Blood Count 3.04 M/uL (4.2-5.4); White Blood Count 7.15 K/uL (4.8-10.8)
[2021-09-29 07:51] LABS: BUN Creatinine Ratio 55.9 (10-20); Calcium 9.2 mg/dl (8.5-10.1); Creatinine Clr Calc Pharmacy 56.6 ml/min; Est GFR (African American) 92.4 ml/min; Est GFR (Non-African American) 79.8 ml/min; Magnesium 1.6 mg/dl (1.7-2.4); Potassium 3.6 mmol/L (3.5-5.1)
[2021-09-29] MEDS: SUCRALFATE 1 GM TAB PO SCH ×4 (08:36→21:38)
[2021-09-29] MEDS: ACETAMINOPHEN 325 MG TAB PO SCH ×3 (08:37→21:24)
[2021-09-29] MEDS: INSULIN GLARGINE SOLOSTAR 100 UNITS/ML 3 ML PEN SC SCH ×2 (08:39→21:25)
[2021-09-29] MEDS: MAGNESIUM SULFATE / D5W 1 GM/100 ML BAG IV SCH ×2 (09:33→11:38)
--- NOTE | 2021-09-29 10:48 | Gastroenterology Progress Note ---
Date of Service September 29, 2021 Assessment & Plan (1) Melena: (2) Abnormal CT of the abdomen: Plan: 1. Duodenal thickening secondary to duodenal ulcers which were likely caused by termite helper prednisone. 2. Biliary ductal dilation; f/u MRCP w/o lesions, obstruction, though physiological 2nd to age and post cholecystectomy. Plan: 86 yr old female w duodenal ulcers. -IV PPI drip times total 48 hours. Then change to p.o. twice daily x2 months then daily mcfp. -No follow-up endoscopy required. -No further testing or procedures required regarding bile duct dilation. -May advance diet. -Please try to limit steroid use. -GI will sign off. Please notify us if new or worsening GI issues. Admission and Anticipated Discharge Date Admission Date: September 27, 2021 Supervising Physician Co-Signing Physician Notes I performed a history and physical examination of the patient today, including specifically on physical exam - soft abdomen. I have discussed the patient's management with the advanced practitioner. Please refer to the nurse pract germania's note for the documented findings and plan of care. PPI Recall GI if needed Subjective 86, female, DM, dementia, on chronic steroids for polymyalgia rheumatica. Presented with melena, none since arrival, hemoglobin 9 on arrival + 1 unit RBCs->9.7 today Denies abdominal pain. Complains about having to eat a clear liquid diet, requests coffee. Review of Systems Review of Systems: ROS: Gen: Is much more awake and alert today. Conversational. Denies weakness, fevers, weight loss Eyes: No eye redness, or pain, no recent vision changes Resp: No SOB, no cough Cardio: No palpitations/irregular beats, no chest pain GI: No abdominal pain, no nausea/vomiting : Denies pain on urination Skin: No jaundice, itching or new rashes Neuro: Denies any numbness/tingling/weakness M/S: c/o right leg sorenes Physical Exam Constitutional: well developed, + ill appearing, cooperative and + overweight Eyes: PERRL, conjunctivae normal, anicteric sclerae ENMT: external ear and nose normal, oropharynx normal Neck: trachea midline, no thyromegaly Respiratory: normal respiratory effort, lungs clear to auscultation Cardiovascular: RRR, no murmur, no edema Gastrointestinal (Abdomen): Inspection/Auscultation: abdomen normal to inspection and normal bowel sounds; abdomen not distended and no abdominal edema Percussion/Palpation: + abdomen tender (Mild diffuse epigastric tenderness. No signs of acute abdomen.) and abdomen soft; no guarding and abdomen not rigid Skin: no rashes, warm and dry normal turgor and + pallor Neurologic: PERRL, EOMI, accommodation nl, no face palsy, no dysarthria Awake and alert, able to tell me her name,but unable to tell me the date or the time. Provides answers, has opinions, Some answers are nonsensical. Psychiatric: A+Ox3, euthymic affect Lymphatic: no cervical or axillary lymphadenopathy Results & Data ([facility]) Vital Signs (Past 12 Hours) Vital Signs Temp Pulse Pulse Resp BP Pulse Ox 09/29/21 08:00 59 L 09/29/21 07:57 36.4 C L 75 17 132/83 96 09/29/21 04:36 36.8 C 66 14 135/70 95 09/28/21 23:55 36.9 C 81 16 138/71 95 09/28/21 23:37 75 Laboratory Results WBC 7, Hb 9.7, HCT 29.3, platelets 217, NA 139, K3.6, CL 109, CO2 25, BUN 38, CR 0.68, glucose 157. Diagnostic Findings EGD 09/29/21: Normal esophagus and stomach. Duodenal ulcers without stigmata of recent bleeding, treated with bipolar cautery. MRCP: 1. Biliary ductal dilation is seen, favored to be physiologic in this patient with history of cholecystectomy. 2. Multiple renal cysts are seen. No follow-up is required by ACR criteria. CTAP w IV: 1. There is wall thickening and mucosal hyperemia seen involving proximal duodenum with significant surrounding inflammation. There is an apparent mucosal defect identified within the proximal duodenum, and the appearance is highly concerning for duodenal ulcer with contained perforation. Duodenitis or less likely groove pancreatitis are differential considerations. 2. No intraperitoneal free air is identified and there is no organized fluid collection to suggest abscess. 3. Left-sided nephrolithiasis. 4. Moderate intra and extra hepatic biliary ductal dilatation is similar to previous. 5. Cardiomegaly.
--- NOTE | 2021-09-29 12:19 | Hospitalist Progress Note ---
Date of Service September 29, 2021 Assessment & Plan (1) GI bleed: Plan: EGD reveals multiple duodenal ulcers with stigmata of recent hemorrhage but no active bleeding. She is on a proton pump inhibitor intravenously and Carafate. Appreciate gastroenterology assistance. Diet will be advanced as tolerated. (2) Acute hypotension: Plan: Currently resolved. IV fluids have been tapered down. Telemetry (3) Anemia due to blood loss: Plan: Hemoglobin 9.7 this morning. Will follow (4) SIRS (systemic inflammatory response syndrome): Plan: Now resolved. No evidence of bacterial sepsis. All cultures negative. Zosyn discontinued today, September 29. HX C. Diff gene positive- TOXIN NEGATIVE (5) Polymyalgia rheumatica: Plan: Steroid-dependent. Currently on parenteral steroid therapy and will switch back to oral prednisone later this admission. (6) Gastroesophageal reflux: Plan: ontinue PPI therapy indefinitely (7) Type 2 diabetes mellitus: Plan: On Lantus BID. Advance diet as tolerated to ADA. Sliding scale insulin coverage as needed (8) Ureterolithiasis: Plan: CTA abdomen and pelvis previous admission with 8mm- non obstructing stone. No intervention necessary at this time (9) Cognitive impairment: Plan: Baseline dementia- poor cognitive function . Continue donepezil Plan: Disposition: To be determined. Will obtain OT and PT assessments when appropriate. Admission and Anticipated Discharge Date Admission Date: September 27, 2021 Subjective Somnolent but easily arousable and oriented. No current complaints. MRCP ordered by GI service and results are pending. Will discontinue Zosyn since all cultures are negative. Intravenous magnesium replacement ordered. Will eventually switch intravenous hydrocortisone back to oral prednisone. IV fluids taper down. Review of Systems Review of Systems: Constitutional-no fever or chills ENT-no blurred vision, no double vision, no epistaxis, no sore throat Respiratory-no cough, no wheezing, no shortness of breath Cardiac-no palpitations, no chest pain, no syncope GI-no nausea, vomiting, diarrhea, melena, hematochezia -no urinary retention, no urinary incontinence, no dysuria, no hematuria Musculoskeletal-no joint pain, no muscle tenderness Skin-no bruising, no rashes, no pruritus Neuro-no isolated weakness, no paresthesia, no weakness Psych-no depression, no anxiety Physical Exam Physical Exam: General-alert and oriented x3, no fevers, no chills HEENT-head atraumatic and normocephalic, TMs intact bilaterally, pupils equal and reactive to light, extraocular muscles intact Neck-no lymphadenopathy or thyromegaly, trachea midline Chest-clear to auscultation percussion. No rales wheezing or rhonchi Cardiac-regular rate and rhythm, normal S1 and S2, no murmurs Abdomen-normal bowel sounds, nontender, no hepatosplenomegaly Extremities-no cyanosis, clubbing, or edema Neuro-cranial nerves II through XII intact, motor and sensory function within normal limits, strength symmetrical , no focal deficits Psych-normal affect, normal mood Results & Data Results & Data ([facility]) Vital Signs (Past 12 Hours) Vital Signs Temp Pulse Pulse Resp BP Pulse Ox 09/29/21 11:21 37.1 C 65 14 146/72 H 97 09/29/21 08:00 59 L 09/29/21 07:57 36.4 C L 75 17 132/83 96 09/29/21 04:36 36.8 C 66 14 135/70 95 Laboratory Results 09/29/21 07:07 09/29/21 07:07 PG Care Time/CCT Total # of Minutes Spent Total Time Spent with Patient: Total time spent is greater than 50% in coordination of care (as documented) at patient's floor/unit and/or counseling patient: Coding Level of Care Code 66449 Subseq Hosp Care Lvl 3 Diagnoses GI bleed K92.2 Acute hypotension I95.9 Anemia due to blood loss D50.0 SIRS (systemic inflammatory response syndrome) R65.10 Polymyalgia rheumatica M35.3 Gastroesophageal reflux K21.9 Type 2 diabetes mellitus E11.9 Ureterolithiasis N20.1 Cognitive impairment R41.89
[2021-09-29] MEDS: DONEPEZIL HCL 10 MG TAB PO SCH (20:55)
[2021-09-29] MEDS: SIMVASTATIN 20 MG TAB PO SCH (21:24)
[2021-09-30] MEDS: PANTOprazole 40 MG in DEXTROSE 5% 100 ML IV SCH (05:13)
[2021-09-30 06:38] LABS: Eosinophils # (auto) 0.01 K/uL (0-0.5); Eosinophils % (auto) 0.2 %; Hematocrit (blood only) 27.7 % (37-47); Hemoglobin 9.5 g/dL (12.0-16.0); Immature Granulocytes # (auto) 0.04 K/uL (0.00-0.02); Immature Granulocytes % (auto) 0.7 %; Lymphocytes % (auto) 17.6 %; Mean Corpuscular Hemoglobin 32.3 pg (25-34); Mean Corpuscular Hgb Conc 34.3 g/dL (32-36); Mean Corpuscular Volume 94.2 fL (80-100); Mean Platelet Volume 9.4 fL (7.4-10.4); Monocytes # (auto) 0.38 K/uL (0.11-0.59); Monocytes % (auto) 6.7 %; Neutrophils # (auto) 4.26 K/uL (1.4-6.5); Neutrophils % (auto) 74.8 %; Platelet Count 197 K/uL (130-400); RDW Coefficient of Variation 16.7 % (11.5-14.5); RDW Standard Deviation 57.4 fL (36.4-46.3); Red Blood Count 2.94 M/uL (4.2-5.4); White Blood Count 5.69 K/uL (4.8-10.8)
[2021-09-30 07:03] LABS: BUN Creatinine Ratio 42.1 (10-20); Calcium 8.7 mg/dl (8.5-10.1); Creatinine Clr Calc Pharmacy 67.6 ml/min; Est GFR (Non-African American) 84.5 ml/min; Magnesium 1.9 mg/dl (1.7-2.4); Potassium 3.1 mmol/L (3.5-5.1)
[2021-09-30] MEDS ORDERED: POTASSIUM CHLORIDE CRTAB 20 MEQ TABCR PO ONE (07:31)
[2021-09-30] MEDS: SUCRALFATE 1 GM TAB PO SCH ×4 (08:03→20:50)
[2021-09-30] MEDS: ACETAMINOPHEN 325 MG TAB PO SCH ×3 (08:04→20:45)
[2021-09-30] MEDS: INSULIN GLARGINE SOLOSTAR 100 UNITS/ML 3 ML PEN SC SCH ×2 (08:04→20:41)
[2021-09-30] MEDS: HYDROCORTISONE SOD 50 MG in SYRINGE 0 ML IV SCH (08:05)
[2021-09-30] MEDS: INSULIN ASPART PER UNIT SC SCH ×4 (08:05→20:42)
[2021-09-30] MEDS: PANTOprazole 40 MG TAB PO SCH ×2 (09:14→20:50)
[2021-09-30] MEDS: predniSONE 20 MG TAB PO SCH (11:17)
--- NOTE | 2021-09-30 12:09 | Hospitalist Progress Note ---
Date of Service September 30, 2021 Assessment & Plan (1) GI bleed: Plan: EGD reveals multiple duodenal ulcers with stigmata of recent hemorrhage but no active bleeding. She is on a proton pump inhibitor intravenously and Carafate. Appreciate gastroenterology assistance. Diet will be advanced as tolerated. IV fluids discontinued (2) Acute hypotension: Plan: Currently resolved. IV fluids have now been discontinued. Telemetry (3) Anemia due to blood loss: Plan: Hemoglobin 9.5 this morning. Stable. Will follow (4) SIRS (systemic inflammatory response syndrome): Plan: Now resolved. No evidence of bacterial sepsis. All cultures negative. Zosyn discontinued September 29. HX C. Diff gene positive- TOXIN NEGATIVE (5) Polymyalgia rheumatica: Plan: Steroid-dependent. Parenteral steroid therapy switched back to oral prednisone today, September 30 (6) Gastroesophageal reflux: Plan: ontinue PPI therapy indefinitely (7) Type 2 diabetes mellitus: Plan: On Lantus BID. Advance diet as tolerated to ADA. Sliding scale insulin coverage as needed (8) Ureterolithiasis: Plan: CTA abdomen and pelvis previous admission with 8mm- non obstructing stone. No intervention necessary at this time (9) Cognitive impairment: Plan: Baseline dementia- poor cognitive function . Continue donepezil Plan: Disposition: Will probably need SNF placement at discharge. OT and PT assessments requested. Admission and Anticipated Discharge Date Admission Date: September 27, 2021 Subjective Alert and oriented. Pleasant. Vital signs are stable. Hemoglobin is stable. Hypokalemia will be addressed with oral replacement. Parenteral steroid therapy switch back to her usual chronic prednisone therapy. OT and PT assessments ordered. She is very weak and probably will need SNF placement. Diet has been advanced. Review of Systems Review of Systems: Constitutional-no fever or chills ENT-no blurred vision, no double vision, no epistaxis, no sore throat Respiratory-no cough, no wheezing, no shortness of breath Cardiac-no palpitations, no chest pain, no syncope GI-no nausea, vomiting, diarrhea, melena, hematochezia -no urinary retention, no urinary incontinence, no dysuria, no hematuria Musculoskeletal-no joint pain, no muscle tenderness Skin-no bruising, no rashes, no pruritus Neuro-no isolated weakness, no paresthesia. Generalized weakness Psych-no depression, no anxiety Physical Exam Physical Exam: General-alert and oriented x3, no fevers, no chills HEENT-head atraumatic and normocephalic, TMs intact bilaterally, pupils equal and reactive to light, extraocular muscles intact Neck-no lymphadenopathy or thyromegaly, trachea midline Chest-clear to auscultation percussion. No rales wheezing or rhonchi Cardiac-regular rate and rhythm, normal S1 and S2, no murmurs Abdomen-normal bowel sounds, nontender, no hepatosplenomegaly Extremities-no cyanosis, clubbing, or edema Neuro-cranial nerves II through XII intact, motor and sensory function within normal limits, strength symmetrical with generalized weakness, no focal deficits Psych-normal affect, normal mood Results & Data Results & Data ([facility]) Vital Signs (Past 12 Hours) Vital Signs Temp Pulse Pulse Resp BP BP Pulse Ox 09/30/21 11:13 36.8 C 69 16 187/94 H 96 09/30/21 08:05 36.6 C 66 16 183/84 H 96 09/30/21 08:00 64 09/30/21 03:12 36.6 C 70 16 137/72 96 Laboratory Results 09/30/21 06:24 09/30/21 06:24 PG Care Time/CCT Total # of Minutes Spent Total Time Spent with Patient: Total time spent is greater than 50% in coordination of care (as documented) at patient's floor/unit and/or counseling patient: Coding Level of Care Code 79192 Subseq Hosp Care Lvl 3 Diagnoses GI bleed K92.2 Acute hypotension I95.9 Anemia due to blood loss D50.0 SIRS (systemic inflammatory response syndrome) R65.10 Polymyalgia rheumatica M35.3 Gastroesophageal reflux K21.9 Type 2 diabetes mellitus E11.9 Ureterolithiasis N20.1 Cognitive impairment R41.89
[2021-09-30] MEDS ORDERED: hydrALAZINE HCL 20 MG/ML VIAL IV PRN (14:56)
[2021-09-30] MEDS ORDERED: traMADol HCL 50 MG TABLET PO PRN (17:36)
[2021-09-30] MEDS: SIMVASTATIN 20 MG TAB PO SCH (20:40)
[2021-09-30] MEDS: DONEPEZIL HCL 10 MG TAB PO SCH (20:40)
[2021-10-01 07:06] LABS: Basophils # (auto) 0.01 K/uL (0-0.2); Basophils % (auto) 0.1 %; Eosinophils # (auto) 0.07 K/uL (0-0.5); Eosinophils % (auto) 0.9 %; Hematocrit (blood only) 29.7 % (37-47); Immature Granulocytes # (auto) 0.06 K/uL (0.00-0.02); Immature Granulocytes % (auto) 0.8 %; Lymphocytes # (auto) 1.95 K/uL (1.2-3.4); Lymphocytes % (auto) 24.6 %; Mean Corpuscular Hemoglobin 31.8 pg (25-34); Mean Corpuscular Hgb Conc 33.7 g/dL (32-36); Mean Corpuscular Volume 94.6 fL (80-100); Mean Platelet Volume 9.3 fL (7.4-10.4); Monocytes # (auto) 0.67 K/uL (0.11-0.59); Monocytes % (auto) 8.5 %; Neutrophils # (auto) 5.16 K/uL (1.4-6.5); Neutrophils % (auto) 65.1 %; Nucleated RBC # (auto) 0.03 K/uL (0-0); Nucleated RBC % (auto) 0.4 %; Platelet Count 236 K/uL (130-400); RDW Coefficient of Variation 17.1 % (11.5-14.5); RDW Standard Deviation 58.2 fL (36.4-46.3); Red Blood Count 3.14 M/uL (4.2-5.4); White Blood Count 7.92 K/uL (4.8-10.8)
[2021-10-01 07:34] LABS: BUN Creatinine Ratio 33.3 (10-20); Calcium 9.2 mg/dl (8.5-10.1); Creatinine Clr Calc Pharmacy 77.4 ml/min; Est GFR (African American) 99.7 ml/min; Potassium 3.1 mmol/L (3.5-5.1)
[2021-10-01] MEDS: SUCRALFATE 1 GM TAB PO SCH ×4 (08:07→21:23)
[2021-10-01] MEDS: INSULIN ASPART PER UNIT SC SCH ×4 (08:07→21:25)
[2021-10-01] MEDS: PANTOprazole 40 MG TAB PO SCH ×2 (08:08→21:41)
[2021-10-01] MEDS: predniSONE 20 MG TAB PO SCH (08:08)
[2021-10-01] MEDS: ACETAMINOPHEN 325 MG TAB PO SCH ×3 (08:11→21:23)
[2021-10-01] MEDS: INSULIN GLARGINE SOLOSTAR 100 UNITS/ML 3 ML PEN SC SCH ×2 (08:49→21:25)
[2021-10-01] MEDS: POTASSIUM CHLORIDE 10 MEQ TABCR PO SCH ×2 (10:01→17:19)
--- NOTE | 2021-10-01 12:04 | Hospitalist Progress Note ---
Date of Service October 01, 2021 Assessment & Plan (1) GI bleed: Plan: EGD revealed multiple duodenal ulcers with stigmata of recent hemorrhage but no active bleeding. Continue proton pump inhibitor and Carafate. Appreciate gastroenterology assistance. Diet has been advanced as tolerated. IV fluids have been discontinued (2) Acute hypotension: Plan: Currently resolved. IV fluids have now been discontinued. Telemetry (3) Anemia due to blood loss: Plan: Hemoglobin low but stable. No need for transfusion at this time. Will follow (4) SIRS (systemic inflammatory response syndrome): Plan: Now resolved. No evidence of bacterial sepsis. All cultures negative. Zosyn discontinued September 29. HX C. Diff gene positive- TOXIN NEGATIVE (5) Polymyalgia rheumatica: Plan: Steroid-dependent. Parenteral steroid therapy switched back to oral prednisone on September 30 (6) Gastroesophageal reflux: Plan: continue PPI therapy indefinitely (7) Type 2 diabetes mellitus: Plan: On Lantus BID. Hold 1 dose of insulin for any glucose less than 120. ADA diet. Sliding scale insulin coverage as needed (8) Ureterolithiasis: Plan: CTA abdomen and pelvis previous admission with 8mm- non obstructing stone. No intervention necessary at this time (9) Cognitive impairment: Plan: Baseline dementia- poor cognitive function . Continue donepezil Plan: Disposition: [facility] at discharge sometime this week Admission and Anticipated Discharge Date Admission Date: September 30, 2021 Subjective Alert and pleasant. She is not eating much and states she does not like the food here. Megestrol started as a appetite stimulant. Will hold insulin if glucose is less than 120. Potassium supplementation underway and will recheck magnesium level tomorrow morning. She remains on Protonix and Carafate. E ventual discharge to [facility]. Review of Systems Review of Systems: Constitutional-no fever or chills ENT-no blurred vision, no double vision, no epistaxis, no sore throat Respiratory-no cough, no wheezing, no shortness of breath Cardiac-no palpitations, no chest pain, no syncope GI-no nausea, vomiting, diarrhea, melena, hematochezia. Poor appetite and poor oral intake -no urinary retention, no urinary incontinence, no dysuria, no hematuria Musculoskeletal-no joint pain, no muscle tenderness Skin-no bruising, no rashes, no pruritus Neuro-generalized weakness. No paresthesia Psych-no depression, no anxiety Physical Exam Physical Exam: General-alert and oriented x3, no fevers, no chills HEENT-head atraumatic and normocephalic, TMs intact bilaterally, pupils equal and reactive to light, extraocular muscles intact Neck-no lymphadenopathy or thyromegaly, trachea midline Chest-clear to auscultation percussion. No rales wheezing or rhonchi Cardiac-regular rate and rhythm, normal S1 and S2, no murmurs Abdomen-normal bowel sounds, nontender, no hepatosplenomegaly Extremities-no cyanosis, clubbing, or edema Neuro-cranial nerves II through XII intact, motor and sensory function within normal limits, strength symmetrical with generalized weakness, no focal deficits Psych-flat affect Results & Data Results & Data ([facility]) Vital Signs (Past 12 Hours) Vital Signs Temp Pulse Pulse Pulse Resp BP Pulse Ox 10/01/21 11:51 36.8 C 74 12 153/76 H 93 10/01/21 08:00 66 10/01/21 07:53 36.8 C 78 15 131/68 96 10/01/21 03:53 36.6 C 67 16 149/67 H 95 Laboratory Results 10/01/21 06:43 10/01/21 06:43 PG Care Time/CCT Total # of Minutes Spent Total Time Spent with Patient: Total time spent is greater than 50% in coordination of care (as documented) at patient's floor/unit and/or counseling patient: Coding Level of Care Code 93079 Subseq Hosp Care Lvl 3 Diagnoses GI bleed K92.2 Acute hypotension I95.9 Anemia due to blood loss D50.0 SIRS (systemic inflammatory response syndrome) R65.10 Polymyalgia rheumatica M35.3 Gastroesophageal reflux K21.9 Type 2 diabetes mellitus E11.9 Ureterolithiasis N20.1 Cognitive impairment R41.89
[2021-10-01] MEDS: MEGESTROL ACETATE 40 MG TAB PO SCH ×2 (13:00→21:41)
[2021-10-01] MEDS: SIMVASTATIN 20 MG TAB PO SCH (21:23)
[2021-10-01] MEDS: DONEPEZIL HCL 10 MG TAB PO SCH (21:23)
[2021-10-02 07:02] LABS: Calcium 9.1 mg/dl (8.5-10.1); Creatinine Clr Calc Pharmacy 77.7 ml/min; Est GFR (African American) 99.7 ml/min; Magnesium 1.7 mg/dl (1.7-2.4); Potassium 3.3 mmol/L (3.5-5.1)
[2021-10-02] MEDS: INSULIN ASPART PER UNIT SC SCH ×2 (07:39→12:21)
[2021-10-02] MEDS: ACETAMINOPHEN 325 MG TAB PO SCH ×2 (08:21→15:28)
[2021-10-02] MEDS: PANTOprazole 40 MG TAB PO SCH (08:24)
[2021-10-02] MEDS: SUCRALFATE 1 GM TAB PO SCH ×2 (08:24→12:27)
[2021-10-02] MEDS: MEGESTROL ACETATE 40 MG TAB PO SCH (08:24)
[2021-10-02] MEDS: POTASSIUM CHLORIDE 10 MEQ TABCR PO SCH ×2 (08:25→12:50)
[2021-10-02] MEDS: predniSONE 20 MG TAB PO SCH (08:25)
[2021-10-02] MEDS: INSULIN GLARGINE SOLOSTAR 100 UNITS/ML 3 ML PEN SC SCH (08:26)
[2021-10-02] MEDS ORDERED: POTASSIUM CHLORIDE 20 MEQ/15 ML UDC PO SCH (09:00)
--- NOTE | 2021-10-02 15:16 | Discharge Summary ---
Date of Service October 02, 2021 Admission HPI Per Admitting Provider Patient has dementia at baseline: HPI information obtained from chart review- did have phone discussion with son Ariel for obtaining blood consent and confirming code status as DNR/DNI. 86 YOF with past medical history of: PMR on chronic prednisone, chronic pain, lone atrial fibrillation postoperatively, DM 2, HTN, dementia, nephrolithiasis, renal cysts, and recurrent UTIs who presents to the ER from her [facility] homefor concern of GI Bleed, as she has had 2-3 days of dark stools, and reported decrease in her HGB. EMS transported patient and reported hypotension requiring minimal crystalloid to bring BP up. In the EMD she was noted to be heme positive without louise blood reported. She was started on Protonix drip and bolus, type and screened, blood culture and urine culture and hospitalist service was consulted for admission. Patient is currently has MAPS >65 with SBP >100, not tachycardic and is warm. Her labs are remarkable for continued Leukocytosis, Lactate of 2.5, BUN increased to 72 (28), and HGB of 9.0. Her HGB on 09/08/21 from discharge here was 12.1. Patient will be placed in the PCU, trend her HGB, transfuse for hypotension or HGB 8. Will obtain CTA of her abdomen and pelvis to evaluate for bleeding, colitis. Patient was recently admitted 09/01/21 and discharged on 09/08/21 with n/v/d hypotension, met SIRS criteria requiring stress dose steroids at that time for her long history of PMR and chronically on Prednisone 20mg daily. She was given Cefepime for aspiration pneumonia/pneumonitis as well as chronic cystitis. Her blood cultures at that time had 1 bottle with CONS- not lugd was placed on Vanco- repeated on 09/03 with same result- continued with Vancomycin and transitioned to Zyvox, ECHO as above. She had stool studies sent for her diarrhea- which reveals C. Diff gene positive and TOXIN NEGATIVE- this was reported at the [facility] where she resides - and remains gene positive with toxin negative as well as positive for norovirus. Her WBC counts are normally 9-11. She has history of one time afib without re-occurrence- ECHO was repeated in 08/29 with EF 60-65% with normal valves. Today her WBC are 16 with NLR 7.5:1, UA via straight cath with LE negative Nit +, WBC 10-30 with bacteria reported as negative. Blood and Urine cultures are pending. COVID test on admission is: NEGATIVE Principal Diagnosis GI bleed Discharge Exam General-alert and oriented x3, no fevers, no chills HEENT-head atraumatic and normocephalic, TMs intact bilaterally, pupils equal and reactive to light, extraocular muscles intact Neck-no lymphadenopathy or thyromegaly, trachea midline Chest-clear to auscultation percussion. No rales wheezing or rhonchi Cardiac-regular rate and rhythm, normal S1 and S2, no murmurs Abdomen-normal bowel sounds, nontender, no hepatosplenomegaly Extremities-no cyanosis, clubbing, or edema Neuro-cranial nerves II through XII intact, motor and sensory function within normal limits, strength symmetrical with generalized weakness, no focal deficits Psych-flat affect Discharge Data Allergies Allergy/AdvReac Type Severity Reaction Status Date / Time adhesive Allergy Intermediate SKIN Verified 09/27/21 11:19 BLISTERS tetanus toxoid, adsorbed Allergy Mild EDEMA AT Verified 09/27/21 11:19 SITE codeine AdvReac Intermediate HEART Verified 09/27/21 11:19 PALPITATIONS, RECIEVED MORPHINE IV IN 2004 ADMIT Consultations 09/27/21 12:28 ED Decision to Admit Stat 09/27/21 18:10 Consult Gastroenterology Routine Procedures Performed Operation Date: 09/28/21 16:15 Actual Procedures p EGD Hemostasis - Veena Honeycutt MD Ordered Studies 09/27/21 15:59 CT abd pelvis IV con only Urgent 09/28/21 12:06 MR MRCP Routine Hospital Course (1) GI bleed: EGD revealed multiple duodenal ulcers with stigmata of recent hemorrhage but no active bleeding. Continue proton pump inhibitor and Carafate. Appreciate gastroenterology assistance. Diet has been advanced as tolerated. IV fluids have been discontinued Will discharge patient on PPI BID. Patient's hemoglobin has been stable. (2) Acute hypotension: Currently resolved. IV fluids have now been discontinued. Telemetry (3) Anemia due to blood loss: Acute blood loss anemia Hemoglobin low but stable. No need for transfusion at this time. Will follow (4) SIRS (systemic inflammatory response syndrome): Now resolved. No evidence of bacterial sepsis. All cultures negative. Zosyn discontinued September 29. HX C. Diff gene positive- TOXIN NEGATIVE (5) Polymyalgia rheumatica: Steroid-dependent. Parenteral steroid therapy switched back to oral prednisone on September 30 (6) Gastroesophageal reflux: continue PPI therapy indefinitely (7) Type 2 diabetes mellitus: On Lantus BID. Hold 1 dose of insulin for any glucose less than 120. ADA diet. Sliding scale insulin coverage as needed (8) Ureterolithiasis: CTA abdomen and pelvis previous admission with 8mm- non obstructing stone. No intervention necessary at this time (9) Cognitive impairment: Baseline dementia- poor cognitive function . Continue donepezil Disposition: [facility] at discharge Total Time Total Time Spent Total Time Spent (In Minutes): 32 Discharge Plan Discharge Items Patient Disposition: Transfer Shelter Fac Reason For Visit: GI BLEED, SEPSIS Discharge Diagnosis: GI bleed, sepsis Activity: Resume your previous activity Non-emergency contact: Primary Care Provider Call non-emergency contact if: you have any medication questions Follow-up/Referrals: Aniket Drake MD [Primary Care Provider] - Diet: Carb Consistent or DM2 and Low Fiber Addtl Attending Provider Instructions: You have been hospitalized for an acute medical problem. During your stay at [facility], we have made an effort to correct the problem that brought you to the hospital while keeping you as comfortable as possible. Medications were used to bring your condition under control and your discharge instructions will include directions for any medications you should take after leaving the hospital. Please make sure you see your Primary Care Provider as part of your follow up plan. Check hemoglobin in 1 week. Check potassium in 5 days. Pending Studies at Discharge: No Stand-Alone Forms: My [facility] Skilled Items Patient informed of condition?: No DNR: Yes Discharge Level of Care: Skilled Communicable Disease: No Discharge Prognosis: Stable Lines: None Urinary Catheter: No Medications and DC Order Prescriptions: New potassium chloride 20 mEq/15 mL Liquid 20 meq PO BID 3 Days Qty: 90 RF: 0 pantoprazole 40 mg Tablet,Delayed Release (Dr/Ec) 40 mg PO BID Qty: 60 RF: 0 megestrol 40 mg Tablet 40 mg PO BID Qty: 60 RF: 0 Continued (DME) Overnight Pad For Women Pad See Rx Instructions .ROUTE .MEDSUPPLY Qty: 168 RF: 3 (DME) Novofine Autocover 30 gauge x 1/3" needle See Rx Instructions .ROUTE .MEDSUPPLY Qty: 100 RF: 3 nystatin 100,000 unit/gram powder 1 applic TOP BID PRN (Reason: rash) Qty: 60 RF: 0 (DME) OneTouch Ultra Blue Test Strip Strip See Rx Instructions .ROUTE .MEDSUPPLY Qty: 200 RF: 3 (DME) BD AutoShield Duo Pen Needle 30 gauge x 3/16" needle See Rx Instructions .ROUTE .MEDSUPPLY Qty: 200 RF: 3 carvedilol [Coreg] 3.125 mg tablet 3.125 mg PO BID17 Qty: 60 RF: 5 donepezil [Aricept] 10 mg tablet 10 mg PO HS Qty: 90 RF: 3 cholecalciferol (vitamin D3) 50 mcg (2,000 unit) capsule 2,000 unit PO QAM Qty: 30 RF: 6 simvastatin 20 mg tablet 20 mg PO HS Qty: 90 RF: 3 prednisone 20 mg tablet 20 mg PO QAM Qty: 90 RF: 3 (DME) lancets [ReadyLance Safety Lancets] 30 gauge misc See Rx Instructions .ROUTE .MEDSUPPLY Qty: 200 RF: 3 diclofenac sodium 1 % Gel 4 g TOPICAL DAILY PRN (Reason: PAIN R KNEE) RF: 0 methyl salicylate-menthol 15-10 % Cream 1 applic TOPICAL QID RF: 0 acetaminophen 325 mg tablet 650 mg PO TID MDD 3 GRAMS/24 HOURS RF: 0 cyanocobalamin (vitamin B-12) 1,000 mcg capsule 1,000 mcg PO DAILY Qty: 30 RF: 0 acetaminophen 325 mg tablet 650 mg PO Q4 MDD 3g PRN (Reason: Fever Or Pain) RF: 0 Lantus Solostar U-100 Insulin 100 unit/mL (3 mL) insulin pen 8 unit SC Q12H RF: 0 Zofran Solution 8 mg IV Q8 PRN (Reason: Nausea And Vomiting) RF: 0 Discontinued lisinopril 20 mg tablet 20 mg PO QAM Qty: 90 RF: 3 nystatin 100,000 unit/mL Suspension 5 ml PO QID RF: 0 ciprofloxacin in 5 % dextrose 400 mg/200 mL Piggyback 400 mg IV Q12H RF: 0 Discharge Orders: Discharge Order (Routine); Ordered 10/02/21 Ordered By: Geremias Pacheco Admission Data Admit Date/Time: 09/30/21 10:41 Attending Provider: Geremias Pacheco Admit Provider: Abdiaziz Davis Primary Care Provider: Aniket Drake Other Providers: Abdiaziz Davis ; Veena Honeycutt ; Jan Royal at [place] Other Interventions: Discharge Summary Assessment (RN) Last Done: 10/02/21 15:38 Coding Level of Care Code D/C DAY MANAGEMENT >30 MINS Diagnoses GI bleed K92.2 Acute hypotension I95.9 Anemia due to blood loss D50.0 SIRS (systemic inflammatory response syndrome) R65.10 Polymyalgia rheumatica M35.3 Gastroesophageal reflux K21.9 Type 2 diabetes mellitus E11.9 Ureterolithiasis N20.1 Cognitive impairment R41.89
== END 2021-10-02 15:52 | DRG 378 ==
LOC: EDINP 10:32 → ED 10:32 → SUATTDRO 13:51 → 2E 19:17 → SUATTDRO 09-30 10:41

== ENCOUNTER 2021-12-11 08:04 | Inpatient (IN) ==
[2021-12-11] MEDS ORDERED: PIPERACILLIN/TAZOBACTAM 4.5 GM/120 ML BAG IV ONE (08:28)
[2021-12-11] MEDS ORDERED: ACETAMINOPHEN 650 MG SUPP PR STA (08:38)
--- NOTE | 2021-12-11 08:38 | Emergency Department Note ---
Impression & Plan Acute pyelonephritis, Hydronephrosis with urinary obstruction due to ureteral calculus, Acute alteration in mental status, Fever ED Provider Note NAME: FARZAD OLIVEIRA AGE: 86 SEX: F : 1935 ARRIVES VIA: Ambulance INFORMANT: EMS, and detention documentation. ED PROVIDER(S): Trino Ballard DO CHIEF COMPLAINT: Altered mental status HPI: The patient is an 86-year-old female who presented to the emergency department from her detention for an evaluation of altered mental status. The patient was not able to answer questions. The history and HPI were obtained from the detention documentation as well as EMS. Apparently the patient has been experiencing abdominal pain which was lower abdominal pain over the last 2 days. She was noted to have a fever. Today she was noted to have altered mental status consisting of decreased mental status and decreased activity. This is new for her as she does have a history of dementia as she normally is able to speak and answer questions for the detention staff. It is unclear if she received anything for the fever. It is unclear how high the fever was. She does have a history of urinary tract infection in the past according to the documentation. There is no reported vomiting. There is no report of black or bloody bowel wounds. The patient was taking an NSAID. ROS: See above HPI for pertinent positives & negatives. A total of 10 systems reviewed and were otherwise negative. PAST MEDICAL HISTORY: See Below PAST SURGICAL HISTORY: See Below FAMILY HISTORY: See Below SOCIAL HISTORY: See Below HOME MEDICATIONS: See Below ALLERGIES: See Below VITALS: See Below PHYSICAL EXAMINATION: GENERAL: The patient is listless and slow to respond to questioning. EYES: The conjunctivae are clear. The pupils are round and reactive. The eyes had to be opened by the provider to be evaluated. EARS, NOSE, MOUTH AND THROAT: The nose is without any evidence of any deformity. Mucous membranes are dry. NECK: The neck is nontender and supple. RESPIRATORY: Normal respiratory effort is noted there is no evidence of wheezing rhonchi or rales CARDIOVASCULAR: Regular rate and rhythm noted there no murmurs rubs or gallops normal S1 normal S2. GASTROINTESTINAL: The abdomen was soft and mildly distended. There is no guarding or rigidity appreciated. MUSCULOSKELETAL/EXTREMITIES: There is no evidence of gross deformity full range of motion is noted in the hips and shoulders. SKIN: The skin is warm and dry. Trace pedal edema was noted bilaterally. NEUROLOGIC: Patient is awake to loud verbal stimuli. She does not answer questions appropriately. Orientation is difficult to assess at this time. MEDICAL DECISION MAKING: The patient is an 86-year-old female who presented to the emergency department for fever and abdominal pain. The patient does have a history of kidney stones. She does not specifically complain of flank pain but given her past medical history CT was obtained along with laboratory and radiographic studies. The patient was treated with IV fluids and IV antibiotics. She was reevaluated multiple times. I discussed the patient's laboratory and radiographic studies with her and her son. I also consulted urology given the patient's findings of an obstructive kidney stone with fever and signs of urinary tract infection. Likely the patient will need evaluation for possible stent placement. I also discussed her case with the on-call [facility] hospitalist group. They will evaluate the patient in the emergency department for further management and disposition. Triage Nursing notes reviewed. Prior medical records reviewed Vital Signs: reviewed and remarkable for fever. Differential diagnosis: Infection, hypoglycemia, electrolyte abnormalities, overdose, toxicologic, cardiac sources, intracerebral event, neurologic, trauma, as well as other pathologies. ER treatment provided: See below Diagnostics interpreted by me: ECG: EKG was obtained in the emergency department. My interpretation is sinus tachycardia 104 bpm. Nonspecific T wave abnormalities were appreciated. Poor R wave progression was noted. This was compared to a tracing from September 27, 2021. No changes were noted. Cardiac Monitoring: An order was placed for continuous cardiac monitoring. The monitor shows a rate of 89 bpm with sinus rhythm. Laboratory studies: As stated above and show below. Imaging studies: See below Consultation(s): I discussed this case with Chaparrita who is covering for urology. They will evaluate the patient for possible stenting I discussed this case with Maria Elena who is on for the [facility] hospitalist group. They will evaluate the patient in the emergency department. Past Med/Surg History Medical History Acute shoulder pain Anemia Atrial fibrillation Developed intraoperatively on 06/15/2019. 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 Cognitive impairment Complicated UTI (urinary tract infection) Dementia Depression Diabetes Encounter for pre-operative examination Gait instability Gastroesophageal reflux History of respiratory failure Hx of fall Hx pulmonary embolism Hx: UTI (urinary tract infection) Hydronephrosis with obstructing calculus Hyperlipidemia Knee pain Lumbago Lumbar facet joint syndrome Paroxysmal atrial fibrillation Spinal stenosis, lumbar region without neurogenic claudication Type 2 diabetes mellitus Vitamin D deficiency Weakness Surgical History H/O cystoscopy cyst with L stent: 06/15/2019 at [facility]. MAC. Patient given insulin for hyperglycemia and metoprolol and cardizem intraop H/O: hysterectomy History of appendectomy History of knee replacement procedure of left knee History of knee replacement procedure of right knee History of open reduction and internal fixation (ORIF) procedure L HUMEROUS Hx of cholecystectomy Hx of excision of epidermal inclusion cyst Hx of tonsillectomy Presence urogenital implant Family History Sister Diabetes Stroke Brother Diabetes Prostate cancer Father Lung disease Social History Smoking Status: Unknown if ever smoked Cigarettes Per Day: UTO; Hx Alcohol Use: No Hx Substance Use: No Preferred Language: Botswanan Communication Ability: Impaired Communication Tools: Facial Expression, Physical Gestures and Lip Movement/Reading Visual Impairment: Limited Hearing Ability: Hard of Hearing Hand Driller Required: Yes Beliefs That Will Affect Care: None Current Living Situation: Half-Way Current Living Situation Comment: From [facility] current occupational status: retired How many Children do You have: 1 Other Information That Helps Us Care for You: No Feels Safe at Home: Declines to Answer caffeine: No Seatbelt Use: always Assistive Devices: Oxygen - at Night Allergies Allergies Allergy/AdvReac Type Severity Reaction Status Date / Time adhesive Allergy Intermediate SKIN Verified 12/11/21 09:21 BLISTERS tetanus toxoid, adsorbed Allergy Mild EDEMA AT Verified 12/11/21 09:21 SITE codeine AdvReac Intermediate HEART Verified 12/11/21 09:21 PALPITATIONS, RECIEVED MORPHINE IV IN 2004 ADMIT Home Meds Home Medications Medication Instructions Recorded Confirmed diclofenac sodium 1 % topical gel 4 g TOPICAL DAILY PRN 05/05/21 12/11/21 acetaminophen 325 mg tablet 650 mg PO TID MDD 3 GRAMS/24 HOURS 09/01/21 12/11/21 acetaminophen 325 mg tablet 650 mg PO Q4 PRN MDD 3g 09/27/21 12/11/21 insulin glargine 100 unit/mL (3 12 unit SC BID 09/27/21 12/11/21 mL) subcutaneous pen (Lantus Solostar U-100 Insulin) Bengay Lidocaine Cream 4% 1 applic TOPICAL QID 12/11/21 12/11/21 carvedilol 3.125 mg tablet (Coreg) 3.125 mg PO BID 12/11/21 12/11/21 cyanocobalamin (vitamin B-12) 1,000 mcg PO QAM 12/11/21 12/11/21 1,000 mcg capsule docusate sodium 100 mg capsule 100 mg PO DAILY PRN 12/11/21 12/11/21 (Colace) insulin aspart U-100 100 unit/mL 1 sliding scale dose SUBCUT 12/11/21 12/11/21 subcutaneous cartridge (Novolog USEASDIRECTD PenFill U-100 Insulin aspart) ondansetron 4 mg disintegrating 4 mg PO Q6H PRN 12/11/21 12/11/21 tablet pantoprazole 40 mg granules 40 mg PO BID 12/11/21 12/11/21 delayed-release for susp in packet polyethylene glycol 3350 17 17 g PO Q24H PRN 12/11/21 12/11/21 gram/dose oral powder (Miralax) potassium chloride 10 mEq 20 meq PO BID 12/11/21 12/11/21 capsule,extended release zinc oxide 20 % topical ointment 1 applic TOPICAL QS 12/11/21 12/11/21 zinc oxide 40 % topical ointment 1 applic TOPICAL UD PRN 12/11/21 12/11/21 Previous Rx's Medication Instructions Recorded incontinence pad, liner, disp #168 ea 08/11/19 (Overnight Pad For Women) pen needle, diabetic, safety 30 #100 ea 06/28/20 gauge x 1/3" (Novofine Autocover) nystatin 100,000 unit/gram topical 1 applic TOP BID PRN #60 gm 09/27/20 powder blood sugar diagnostic (OneTouch #200 ea 11/14/20 Ultra Blue Test Strip) pen needle,diabetic dual safty 30 #200 ea 11/14/20 gauge x 3/16" (BD AutoShield Duo Pen Needle) cholecalciferol (vitamin D3) 50 2,000 unit PO QAM #30 cap 05/29/21 mcg (2,000 unit) capsule donepezil 10 mg tablet (Aricept) 10 mg PO HS #90 tab 05/29/21 simvastatin 20 mg tablet 20 mg PO HS #90 tab 05/29/21 prednisone 20 mg tablet 20 mg PO QAM #90 tab 07/10/21 lancets 30 gauge (ReadyLance #200 ea 07/11/21 Safety Lancets) Results & Data (ED) Vital Signs Vital Signs - 24 hr 12/11/21 08:07 12/11/21 08:15 12/11/21 08:16 Temperature 39.5 C H Temperature Source Oral Pulse Rate 85 Pulse Rate [Apical] 104 H Pulse Rhythm Regular Respiratory Rate 15 23 Respiratory Effort / Characteristics Non-Labored Spontaneous Non-Labored Spontaneous Respiratory Depth Respiratory Pattern Regular Blood Pressure 148/83 H Blood Pressure [Right Arm] Blood Pressure Mean 104 Blood Pressure Mean [Right Arm] Pulse Oximetry 94 95 94 Oxygen Delivery Method Room Air Room Air Room Air Sepsis Recent Fever Within 48 Hours Yes Sepsis New/Unexplained Change in Mental Status Yes Sepsis Action Taken by Nursing Physician Notified 12/11/21 08:22 12/11/21 08:30 12/11/21 08:45 Temperature Temperature Source Pulse Rate Pulse Rate [Apical] 103 H Pulse Rhythm Respiratory Rate 24 24 Respiratory Effort / Characteristics Non-Labored Spontaneous Non-Labored Spontaneous Respiratory Depth Normal Respiratory Pattern Blood Pressure Blood Pressure [Right Arm] 131/65 Blood Pressure Mean Blood Pressure Mean [Right Arm] 87 Pulse Oximetry 95 93 93 Oxygen Delivery Method Room Air Room Air Room Air Sepsis Recent Fever Within 48 Hours Sepsis New/Unexplained Change in Mental Status Sepsis Action Taken by Nursing 12/11/21 09:00 12/11/21 09:15 12/11/21 09:16 Temperature Temperature Source Pulse Rate Pulse Rate [Apical] 105 H 103 H Pulse Rhythm Respiratory Rate 23 22 Respiratory Effort / Characteristics Non-Labored Spontaneous Non-Labored Spontaneous Non-Labored Spontaneous Respiratory Depth Normal Normal Respiratory Pattern Blood Pressure Blood Pressure [Right Arm] 120/60 120/53 L Blood Pressure Mean Blood Pressure Mean [Right Arm] 80 75 Pulse Oximetry 91 92 Oxygen Delivery Method Room Air Room Air Sepsis Recent Fever Within 48 Hours Sepsis New/Unexplained Change in Mental Status Sepsis Action Taken by Nursing 12/11/21 09:30 12/11/21 10:00 12/11/21 10:15 Temperature Temperature Source Pulse Rate Pulse Rate [Apical] 101 H 101 H 96 H Pulse Rhythm Respiratory Rate 23 23 20 Respiratory Effort / Characteristics Non-Labored Spontaneous Non-Labored Spontaneous Non-Labored Spontaneous Respiratory Depth Normal Normal Normal Respiratory Pattern Blood Pressure Blood Pressure [Right Arm] 111/53 L 124/67 130/53 L Blood Pressure Mean Blood Pressure Mean [Right Arm] 72 86 78 Pulse Oximetry 92 94 92 Oxygen Delivery Method Room Air Room Air Room Air Sepsis Recent Fever Within 48 Hours Sepsis New/Unexplained Change in Mental Status Sepsis Action Taken by Nursing 12/11/21 10:30 12/11/21 10:45 12/11/21 11:00 Temperature Temperature Source Pulse Rate Pulse Rate [Apical] 96 H 95 H 96 H Pulse Rhythm Respiratory Rate 24 19 17 Respiratory Effort / Characteristics Non-Labored Spontaneous Non-Labored Spontaneous Respiratory Depth Normal Normal Respiratory Pattern Blood Pressure Blood Pressure [Right Arm] 117/70 123/56 L 123/67 Blood Pressure Mean Blood Pressure Mean [Right Arm] 85 78 85 Pulse Oximetry 95 93 95 Oxygen Delivery Method Room Air Room Air Room Air Sepsis Recent Fever Within 48 Hours Sepsis New/Unexplained Change in Mental Status Sepsis Action Taken by Half-Way Medications Current Medication List: was personally reviewed by me Laboratory Data Attestation: I reviewed the patient's lab results. Result diagrams: 12/11/21 08:25 12/11/21 08:25 Lab Results 12/11/21 12/11/21 12/11/21 Range/Units 08:18 08:25 08:25 WBC 10.37 (4.8-10.8) K/uL RBC 4.45 (4.2-5.4) M/uL Hgb 14.0 (12.0-16.0) g/dL Hct 44.0 (37-47) % MCV 98.9 (80-100) fL MCH 31.5 (25-34) pg MCHC 31.8 L (32-36) g/dL RDW Std Deviation 50.0 H (36.4-46.3) fL RDW Coeff of Junie 14.0 (11.5-14.5) % Plt Count 158 (130-400) K/uL MPV 10.4 (7.4-10.4) fL Immature Gran % (Auto) 0.2 % Neut % (Auto) 90.0 % Lymph % (Auto) 4.9 % [place] % (Auto) 4.8 % Eos % (Auto) 0.1 % Baso % (Auto) 0.0 % Neut # (Auto) 9.33 H (1.4-6.5) K/uL Lymph # (Auto) 0.51 L (1.2-3.4) K/uL [place] # (Auto) 0.50 (0.11-0.59) K/uL Eos # (Auto) 0.01 (0-0.5) K/uL Baso # (Auto) 0.00 (0-0.2) K/uL Immature Gran # (Auto) 0.02 (0.00-0.02) K/uL ESR 73 H (0-30) mm/hr PT (9.0-12.0) Seconds INR (0.9-1.1) APTT (21.0-31.0) Seconds PTT Ratio Sodium (136-145) mmol/L Potassium (3.5-5.1) mmol/L Chloride (98-107) mmol/L Carbon Dioxide (21-32) mmol/L Anion Gap (3-11) BUN (6-23) mg/dl Creatinine (0.6-1.2) mg/dl Est Cr Clr Drug Dosing ml/min Est GFR ( Amer) ml/min Est GFR (Non-Af Amer) ml/min BUN/Creatinine Ratio (10-20) Glucose (70-99(Fasting)) mg/dl POC Glucose (70-99) mg/dl Lactate (0.4-2.0) mmol/L Calcium (8.5-10.1) mg/dl Magnesium (1.7-2.4) mg/dl Total Bilirubin (0.2-1.0) mg/dl AST (13-39) U/L ALT (7-52) U/L Alkaline Phosphatase (34-104) U/L Troponin I High Sens (0-14) pg/ml C-Reactive Protein (0-0.5) mg/dl Total Protein (6.0-8.3) gm/dl Albumin (3.4-5.0) gm/dl Globulin (2.5-4.0) gm/dl Albumin/Globulin Ratio (0.9-2) Procalcitonin (0-0.5) ng/ml Urine Color Yellow Urine Appearance Turbid A (Clear) Urine pH 5.0 (4.5-7.5) Ur Specific [place] 1.023 (1.000-1.030) Urine Protein 1+ H (Negative) Urine Glucose (UA) 2+ H (Negative) Urine Ketones 1+ H (Negative) Urine Blood 3+ H (Negative) Urine Nitrite Negative (Negative) Urine Bilirubin Negative (Negative) Urine Urobilinogen Negative (Negative) Ur Leukocyte Esterase 3+ H (Negative) Urine WBC (Auto) >30 H (0-5) /hpf Urine RBC (Auto) 10-30 H (0-4) /hpf U Hyaline Cast (Auto) 1-5 (0-5) /lpf U Epithel Cells (Auto) >30 H (0-5) /lpf Urine Bacteria (Auto) 4+ H (Negative) Urine Yeast Budding A (None Prsent) SARS-CoV-2, RNA, NAAT (NEGATIVE) 12/11/21 12/11/21 12/11/21 Range/Units 08:25 08:25 08:25 WBC (4.8-10.8) K/uL RBC (4.2-5.4) M/uL Hgb (12.0-16.0) g/dL Hct (37-47) % MCV (80-100) fL MCH (25-34) pg MCHC (32-36) g/dL RDW Std Deviation (36.4-46.3) fL RDW Coeff of Junie (11.5-14.5) % Plt Count (130-400) K/uL MPV (7.4-10.4) fL Immature Gran % (Auto) % Neut % (Auto) % Lymph % (Auto) % [place] % (Auto) % Eos % (Auto) % Baso % (Auto) % Neut # (Auto) (1.4-6.5) K/uL Lymph # (Auto) (1.2-3.4) K/uL [place] # (Auto) (0.11-0.59) K/uL Eos # (Auto) (0-0.5) K/uL Baso # (Auto) (0-0.2) K/uL Immature Gran # (Auto) (0.00-0.02) K/uL ESR (0-30) mm/hr PT 10.9 (9.0-12.0) Seconds INR 1.0 (0.9-1.1) APTT 25.6 (21.0-31.0) Seconds PTT Ratio 0.9 Sodium 138 (136-145) mmol/L Potassium 4.7 (3.5-5.1) mmol/L Chloride 102 (98-107) mmol/L Carbon Dioxide 26 (21-32) mmol/L Anion Gap 10 (3-11) BUN 35 H (6-23) mg/dl Creatinine 1.06 (0.6-1.2) mg/dl Est Cr Clr Drug Dosing 36.3 ml/min Est GFR ( Amer) 55.4 ml/min Est GFR (Non-Af Amer) 47.8 ml/min BUN/Creatinine Ratio 33.0 H (10-20) Glucose 262 H (70-99(Fasting)) mg/dl POC Glucose (70-99) mg/dl Lactate 2.0 (0.4-2.0) mmol/L Calcium 11.1 H (8.5-10.1) mg/dl Magnesium 1.3 L (1.7-2.4) mg/dl Total Bilirubin 1.5 H (0.2-1.0) mg/dl AST 10 L (13-39) U/L ALT 10 (7-52) U/L Alkaline Phosphatase 70 (34-104) U/L Troponin I High Sens 23.1 H (0-14) pg/ml C-Reactive Protein 24.49 H (0-0.5) mg/dl Total Protein 6.6 (6.0-8.3) gm/dl Albumin 3.6 (3.4-5.0) gm/dl Globulin 3.0 (2.5-4.0) gm/dl Albumin/Globulin Ratio 1.2 (0.9-2) Procalcitonin (0-0.5) ng/ml Urine Color Urine Appearance (Clear) Urine pH (4.5-7.5) Ur Specific [place] (1.000-1.030) Urine Protein (Negative) Urine Glucose (UA) (Negative) Urine Ketones (Negative) Urine Blood (Negative) Urine Nitrite (Negative) Urine Bilirubin (Negative) Urine Urobilinogen (Negative) Ur Leukocyte Esterase (Negative) Urine WBC (Auto) (0-5) /hpf Urine RBC (Auto) (0-4) /hpf U Hyaline Cast (Auto) (0-5) /lpf U Epithel Cells (Auto) (0-5) /lpf Urine Bacteria (Auto) (Negative) Urine Yeast (None Prsent) SARS-CoV-2, RNA, NAAT (NEGATIVE) 12/11/21 12/11/21 12/11/21 Range/Units 08:25 08:49 09:13 WBC (4.8-10.8) K/uL RBC (4.2-5.4) M/uL Hgb (12.0-16.0) g/dL Hct (37-47) % MCV (80-100) fL MCH (25-34) pg MCHC (32-36) g/dL RDW Std Deviation (36.4-46.3) fL RDW Coeff of Junie (11.5-14.5) % Plt Count (130-400) K/uL MPV (7.4-10.4) fL Immature Gran % (Auto) % Neut % (Auto) % Lymph % (Auto) % [place] % (Auto) % Eos % (Auto) % Baso % (Auto) % Neut # (Auto) (1.4-6.5) K/uL Lymph # (Auto) (1.2-3.4) K/uL [place] # (Auto) (0.11-0.59) K/uL Eos # (Auto) (0-0.5) K/uL Baso # (Auto) (0-0.2) K/uL Immature Gran # (Auto) (0.00-0.02) K/uL ESR (0-30) mm/hr PT (9.0-12.0) Seconds INR (0.9-1.1) APTT (21.0-31.0) Seconds PTT Ratio Sodium (136-145) mmol/L Potassium (3.5-5.1) mmol/L Chloride (98-107) mmol/L Carbon Dioxide (21-32) mmol/L Anion Gap (3-11) BUN (6-23) mg/dl Creatinine (0.6-1.2) mg/dl Est Cr Clr Drug Dosing ml/min Est GFR ( Amer) ml/min Est GFR (Non-Af Amer) ml/min BUN/Creatinine Ratio (10-20) Glucose (70-99(Fasting)) mg/dl POC Glucose 298 H (70-99) mg/dl Lactate (0.4-2.0) mmol/L Calcium (8.5-10.1) mg/dl Magnesium (1.7-2.4) mg/dl Total Bilirubin (0.2-1.0) mg/dl AST (13-39) U/L ALT (7-52) U/L Alkaline Phosphatase (34-104) U/L Troponin I High Sens (0-14) pg/ml C-Reactive Protein (0-0.5) mg/dl Total Protein (6.0-8.3) gm/dl Albumin (3.4-5.0) gm/dl Globulin (2.5-4.0) gm/dl Albumin/Globulin Ratio (0.9-2) Procalcitonin 0.74 H (0-0.5) ng/ml Urine Color Urine Appearance (Clear) Urine pH (4.5-7.5) Ur Specific [place] (1.000-1.030) Urine Protein (Negative) Urine Glucose (UA) (Negative) Urine Ketones (Negative) Urine Blood (Negative) Urine Nitrite (Negative) Urine Bilirubin (Negative) Urine Urobilinogen (Negative) Ur Leukocyte Esterase (Negative) Urine WBC (Auto) (0-5) /hpf Urine RBC (Auto) (0-4) /hpf U Hyaline Cast (Auto) (0-5) /lpf U Epithel Cells (Auto) (0-5) /lpf Urine Bacteria (Auto) (Negative) Urine Yeast (None Prsent) SARS-CoV-2, RNA, NAAT NEGATIVE (NEGATIVE) Administered Medications Insulin Aspart (Insulin Aspart Per Unit) 0 units SC ACHS PHOEBE Stop: 01/10/22 12:27 Last Admin: 12/11/21 12:51 Dose: 5 units Documented by: [id number] Cosigned by: [id number] Discontinued Medications Acetaminophen (Acetaminophen 650 Mg Supp) 650 mg ME NOW STA Stop: 12/11/21 08:39 Last Admin: 12/11/21 08:42 Dose: 650 mg Documented by: [id number] Hydrocortisone Sodium Succinate (Hydrocortisone Sod Succinate 100 Mg/2 Ml Vial) 100 mg IV Q8H PHOEBE Stop: 01/10/22 11:29 Last Admin: 12/11/21 12:30 Dose: Not Given Documented by: [id number] Piperacillin Sod/Tazobactam Sod (Zosyn) 4.5 gm in 120 mls @ 240 mls/hr IV NOW ONE Stop: 12/11/21 08:57 Last Infusion: 12/11/21 09:12 Dose: 0 mls/hr Documented by: [id number] Admin: 12/11/21 08:42 Dose: 240 mls/hr Documented by: [id number] Sodium Chloride (Nss 1000ml) 1,000 mls @ 999 mls/hr IV .Q1H1M ONE Stop: 12/11/21 10:08 Last Infusion: 12/11/21 10:16 Dose: 0 mls/hr Documented by: [id number] Admin: 12/11/21 09:15 Dose: 999 mls/hr Documented by: [id number] Sodium Chloride (Nss 1000ml) 1,000 mls @ 999 mls/hr IV .Q1H1M ONE Stop: 12/11/21 11:38 Last Infusion: 12/11/21 12:30 Dose: 0 mls/hr Documented by: [id number] Admin: 12/11/21 10:50 Dose: 999 mls/hr Documented by: [id number] Imaging Data Radiologist's Impression: Abdomen/Pelvis CT 12/11/21 08:16 CT abd pelvis wo con CLINICAL HISTORY: pain, lethargic, febrile TECHNIQUE: Helical axial images of the abdomen and pelvis were obtained. Automated dose lowering techniques and/or adjustment according to patient size were utilized for this exam. This exam was performed without intravenous contrast. CT DOSE: 1026.57 mGycm COMPARISON: None available at the time of this dictation. FINDINGS: Lower chest: Cardiomegaly is partially visualized. Liver: Unremarkable. No focal lesions are seen. Gallbladder and biliary tree: Patient is status post cholecystectomy. Physiologic prominence of the biliary ducts is noted. Pancreas: Unremarkable, no focal lesions. Spleen: Unremarkable. Adrenals: Unremarkable. Kidneys and ureters: Multiple cysts are seen. There is an obstructive stone at the left UVJ measuring 5 mm with resultant hydronephrosis/hydroureter. Nonobstructive stones are also seen in the kidneys. Bladder: Limited evaluation due to underdistention. Reproductive organs: Patient is status post hysterectomy. Bowel: Unremarkable. Lymph nodes Retroperitoneal: Unremarkable. Mesenteric: Unremarkable. Pelvic: Unremarkable. Peritoneum: Normal. Vessels: Lucent centered calcifications in the right retroperitoneum are seen which may represent vascular phleboliths. Abdominal wall: Unremarkable. Bones: Degenerative changes in the visualized spine. IMPRESSION: Obstructive stone at the left UVJ with resultant hydronephrosis/hydroureter. Additional findings as above without evidence of acute abnormality. ACT 112: Negative or not required by law. Electronically signed by: Frandy Christie M.D. 12/11/2021 10:23 AM Chest X-Ray 12/11/21 08:16 XR chest 1V portable HISTORY: 86 years-old Female SEPSIS acute sepsis COMPARISON: Chest radiograph 09/27/2021 TECHNIQUE: Portable AP view of the chest FINDINGS: The cardiac silhouette is enlarged. Atherosclerosis of the aorta. There is no pneumothorax, pleural effusion, airspace consolidation or overt pulmonary edema. Mild right hemidiaphragmatic elevation. Cholecystectomy. Degenerative changes of the shoulders and spine. ORIF hardware of the left humerus. IMPRESSION: Cardiomegaly without acute process. ACT 112: Negative or not required by law. The above report was generated using voice recognition software. It may contain grammatical, syntax or spelling errors. Electronically signed by: Tong Mendes M.D. 12/11/2021 8:[address] 12/11/21 08:16 CT SCAN OF THE BRAIN WITHOUT IV CONTRAST CLINICAL HISTORY: Change in mental status. COMPARISON STUDY: CT of the brain dated 11/28/2020. TECHNIQUE: Unenhanced axial CT scan of the brain is performed from the vertex to the skull base. A dose lowering technique was utilized adhering to the principles of ALARA. CT DOSE: 690.05 mGycm FINDINGS: Brain parenchyma: There is age-related involutional change noting moderate to advanced subcortical and periventricular microangiopathic disease. There is no hemorrhage, mass effect, or evidence of acute territorial ischemia by CT criteria. Croft-white matter differentiation is preserved. No extra-axial fluid collection is seen. Ventricles, sulci, cisterns: Prominent secondary to involutional change. Intracranial vasculature: There is atherosclerotic calcification of the cavernous carotid arteries. Calvarium: Unremarkable. Sinuses and mastoids: There is complete opacification of the left sphenoid sinus. The remaining visualized paranasal sinuses are clear. The mastoid air cells are well pneumatized. Orbits: The bony orbits are grossly intact. There are bilateral ocular lens implants. IMPRESSION: There is no hemorrhage, mass effect, or evidence of acute territorial ischemia by CT criteria. ACT 112: Negative or not required by law. Electronically signed by: Chandan Scott M.D. 12/11/2021 9:55 AM Discharge Plan Visit Data Chief Complaint: Altered Mental Status Stated Complaint: AB PAIN, FEVER, LETHARGIC, DECREASED LOC ED Provider: Trino Ballard Discharge Problem: Acute pyelonephritis, Hydronephrosis with urinary obstruction due to ureteral calculus, Acute alteration in mental status, Fever Patient Disposition: Admitted As Inpatient Discharge Instructions Interventions: ED Discharge Assessment Last Done: 12/11/21 11:48
--- NOTE | 2021-12-11 08:44 | XRay Report ---
XR chest 1V portable HISTORY: 86 years-old Female SEPSIS acute sepsis COMPARISON: Chest radiograph 09/27/2021 TECHNIQUE: Portable AP view of the chest FINDINGS: The cardiac silhouette is enlarged. Atherosclerosis of the aorta. There is no pneumothorax, pleural e ffusion, airspace consolidation or overt pulmonary edema. Mild right hemidiaphragmatic elevation. Cho lecystectomy. Degenerative changes of the shoulders and spine. ORIF hardware of the left humerus. IMPRESSION: Cardiomegaly without acute process. ACT 112: Negative or not required by law. The above report was generated using voice recognition software. It may contain grammatical, syntax o r spelling errors. Electronically signed by: Tong Mendes M.D. 12/11/2021 8:43 AM
[2021-12-11 08:50] LABS: Eosinophils # (auto) 0.01 K/uL (0-0.5); Eosinophils % (auto) 0.1 %; Immature Granulocytes # (auto) 0.02 K/uL (0.00-0.02); Immature Granulocytes % (auto) 0.2 %; Lymphocytes # (auto) 0.51 K/uL (1.2-3.4); Lymphocytes % (auto) 4.9 %; Mean Corpuscular Hemoglobin 31.5 pg (25-34); Mean Corpuscular Hgb Conc 31.8 g/dL (32-36); Mean Corpuscular Volume 98.9 fL (80-100); Mean Platelet Volume 10.4 fL (7.4-10.4); Monocytes % (auto) 4.8 %; Neutrophils # (auto) 9.33 K/uL (1.4-6.5); Platelet Count 158 K/uL (130-400); Red Blood Count 4.45 M/uL (4.2-5.4); White Blood Count 10.37 K/uL (4.8-10.8)
[2021-12-11 08:56] LABS: Appearance Urine Turbid (Clear); Bacteria Urine Automated 4+ (Negative); Bilirubin Urine Negative (Negative); Blood Urine 3+ (Negative); Color Urine Yellow; Epithelial Cell Urine Auto >30 /lpf (0-5); Glucose Urine UA 2+ (Negative); Ketones Urine 1+ (Negative); Leukocyte Esterase Urine 3+ (Negative); Nitrite Urine Negative (Negative); Protein Urine 1+ (Negative); Specific Gravity Urine 1.023 (1.000-1.030); Urobilinogen Urine Negative (Negative); WBC Urine Automated >30 /hpf (0-5)
[2021-12-11 09:02] LABS: Partial Thromboplastin Ratio 0.9; Partial Thromboplastin Time 25.6 Seconds (21.0-31.0); Prothrombin Time 10.9 Seconds (9.0-12.0)
[2021-12-11 09:07] LABS: Est GFR (African American) 55.4 ml/min; Est GFR (Non-African American) 47.8 ml/min; Potassium 4.7 mmol/L (3.5-5.1)
[2021-12-11 09:08] LABS: Albumin Globulin Ratio 1.2 (0.9-2); Albumin Level 3.6 gm/dl (3.4-5.0); Bilirubin,Total 1.5 mg/dl (0.2-1.0); C Reactive Protein 24.49 mg/dl (0-0.5); Calcium 11.1 mg/dl (8.5-10.1); Creatinine Clr Calc Pharmacy 36.3 ml/min; Magnesium 1.3 mg/dl (1.7-2.4); Total Protein 6.6 gm/dl (6.0-8.3)
[2021-12-11] MEDS ORDERED: SODIUM CHLORIDE 0.9% 1000ML 1,000 ML IV ONE ×2 (09:08→10:38)
[2021-12-11 09:12] LABS: Troponin I High Sensitivity 23.1 pg/ml (0-14)
--- NOTE | 2021-12-11 09:57 | CT Scan Report ---
CT SCAN OF THE BRAIN WITHOUT IV CONTRAST CLINICAL HISTORY: Change in mental status. COMPARISON STUDY: CT of the brain dated 11/28/2020. TECHNIQUE: Unenhanced axial CT scan of the brain is performed from the vertex to the skull base. A do se lowering technique was utilized adhering to the principles of ALARA. CT DOSE: 690.05 mGycm FINDINGS: Brain parenchyma: There is age-related involutional change noting moderate to advanced subcortical an d periventricular microangiopathic disease. There is no hemorrhage, mass effect, or evidence of acute territorial ischemia by CT criteria. Croft-white matter differentiation is preserved. No extra-axial fluid collection is seen. Ventricles, sulci, cisterns: Prominent secondary to involutional change. Intracranial vasculature: There is atherosclerotic calcification of the cavernous carotid arteries. Calvarium: Unremarkable. Sinuses and mastoids: There is complete opacification of the left sphenoid sinus. The remaining visua lized paranasal sinuses are clear. The mastoid air cells are well pneumatized. Orbits: The bony orbits are grossly intact. There are bilateral ocular lens implants. IMPRESSION: There is no hemorrhage, mass effect, or evidence of acute territorial ischemia by CT rudi andujar. ACT 112: Negative or not required by law. Electronically signed by: Chandan Scott M.D. 12/11/2021 9:55 AM
--- NOTE | 2021-12-11 10:24 | CT Scan Report ---
CT abd pelvis wo con CLINICAL HISTORY: pain, lethargic, febrile TECHNIQUE: Helical axial images of the abdomen and pelvis were obtained. Automated dose lowering tech niques and/or adjustment according to patient size were utilized for this exam. This exam was perfor med without intravenous contrast. CT DOSE: 1026.57 mGycm COMPARISON: None available at the time of this dictation. FINDINGS: Lower chest: Cardiomegaly is partially visualized. Liver: Unremarkable. No focal lesions are seen. Gallbladder and biliary tree: Patient is status post cholecystectomy. Physiologic prominence of the b iliary ducts is noted. Pancreas: Unremarkable, no focal lesions. Spleen: Unremarkable. Adrenals: Unremarkable. Kidneys and ureters: Multiple cysts are seen. There is an obstructive stone at the left UVJ measuring 5 mm with resultant hydronephrosis/hydroureter. Nonobstructive stones are also seen in the kidneys. Bladder: Limited evaluation due to underdistention. Reproductive organs: Patient is status post hysterectomy. Bowel: Unremarkable. Lymph nodes Retroperitoneal: Unremarkable. Mesenteric: Unremarkable. Pelvic: Unremarkable. Peritoneum: Normal. Vessels: Lucent centered calcifications in the right retroperitoneum are seen which may represent vas cular phleboliths. Abdominal wall: Unremarkable. Bones: Degenerative changes in the visualized spine. IMPRESSION: Obstructive stone at the left UVJ with resultant hydronephrosis/hydroureter. Additional findings as a brandi without evidence of acute abnormality. ACT 112: Negative or not required by law. Electronically signed by: Frandy Christie M.D. 12/11/2021 10:23 AM
--- NOTE | 2021-12-11 10:48 | History & Physical Report ---
Date of Service December 11, 2021 Assessment & Plan (1) Ureterovesical junction (UVJ) obstruction: Plan: - 5mm left sided UVJ stone with hydronephrosis and hydroureter. - Source of sepsis, urology consulted, plan for cystoscopy with stent placement this afternoon. - Keep patient NPO, support with IVF and ABX. (2) Sepsis: Plan: - 2/2 obstructing left UVJ stone. - Febrile, tachycardic, and with increase in baseline confusion. - WBC 10.37, CRP 24.24, PCT 0.74. - MAP- > 65 - Lactate- 2.0 -with mild elevation in troponin-repeat ordered but likely myocardial demand ischemia in setting of sepsis - Hemodynamic resuscitation plan- 1L NSS bolus x2, continue maintenance IVF - Blood, urine cultures pending. - Zosyn IV q8h. -stress dose steroids with IV hydrocortisone 10mg IV q8h and wean down over 3 days (3) Encephalopathy: Plan: - Suspect this is 2/2 to UTI/sepsis. Mag 1.3, otherwise no electrolyte abnormalities, no hypoglycemia. (4) Acute kidney injury: Plan: - Likely secondary to UTI/obstructive stone. - Cr 1.06, up from baseline of ~.6-.7; GFR reduced. - Receiving IVF as above. - Renally dose medications, avoid nephrotoxins. - Follow renal function on AM labs. (5) Urinary tract infection: Plan: - Zosyn as above, cultures sent. (6) Hypomagnesemia: Plan: -1.3 in ED, will replete and recheck in AM. (7) Hypercalcemia: Plan: - Ca 11.1, receiving IVF as above. - Checking PTH, vit D, phosphorus-- phos mildly low at 2.3, otherwise vit D and PTH wnl. Likely 2/2 NBA and dehydration -hydrating with LR - Follow on AM labs. (8) Polymyalgia rheumatica: Plan: - Takes 20 mg of prednisone chronically. Will require stress dosing due to infection/plan for ureteral stent placement. - Hydrocortisone 100 mg IV every 8h for now. (9) Gastroesophageal reflux: Plan: - Continue protonix 40 mg BID. (10) Type 2 diabetes mellitus: Plan: - Lantus 12 units BID at home with SSI. - Diabetic diet. (11) Hypertension: Plan: - hold home Coreg 3.125 twice daily in setting of sepsis and hypotension (12) Hyperlipidemia: Plan: - Continue simvastatin 20 mg daily. (13) Dementia: Plan: - Continue donepezil 10 mg hs. (14) Chronic pain: Plan: - Continue topical diclofenac gel, lidocaine cream, Tylenol. Plan: - Admit to PCU. - SCDs for DVT ppx. - DNR/DNI. History of Present Illness Chief Complaint: confusion, fever Primary Care Provider: Aniket Drake MD Zina Castañeda is an 86 y/o female with past medical history of DM2, polymyalgia rheumatica on chronic prednisone, isolated episode of a fib in 2019 post op, hypertension, GERD, dementia, kidney stones, and recurrent UTIs who presents today from [facility] for fever and confusion. Due to patient's mental status, information is obtained from patient's son, who is at bedside, as well as ED provider. Patient's son received a call this morning from the facility that his mother had been more confused than she is at her baseline, and also had a fever and low oxygen saturations. She was brought to the ED for evaluation of this. Per EMS report, patient had been experiencing lower abdominal pain over the past few days, but otherwise had apparently been in her normal state of health. She is wheelchair bound and has intermittent lucid moments, but is quite confused at baseline. In ED, she is febrile 103.1, HR 104, normotensive and on room air. No leukocytosis, but with procalcitonin 0.74, ESR 73, CRP 24.49. Lactate 2.0. BUN 35, creatinine 1.06, glucose 262, calcium 11.1, magnesium 1.3, T bili 1.5, hsTrop 23.1. UA with WBCs, RBCs, leuk esterase, bacteria, yeast. Blood and urine culture sent. CT A/P revealed an obstructive stone at the left UVJ with resultant hydronephrosis and hydroureter. CXR showed cardiomegaly without acute process. CT head unremarkable. She has received 1L NSS x2, Zosyn, and Tylenol in ED. Urology was consulted, as well as hospitalist for further evaluation and admission. Allergies Allergy/AdvReac Type Severity Reaction Status Date / Time adhesive Allergy Intermediate SKIN Verified 12/11/21 09:21 BLISTERS tetanus toxoid, adsorbed Allergy Mild EDEMA AT Verified 12/11/21 09:21 SITE codeine AdvReac Intermediate HEART Verified 12/11/21 09:21 PALPITATIONS, RECIEVED MORPHINE IV IN 2004 ADMIT Home Medications Medication Instructions Recorded Confirmed Type incontinence pad, liner, disp #168 ea 08/11/19 06/22/21 Rx (Overnight Pad For Women) pen needle, diabetic, safety 30 #100 ea 06/28/20 06/22/21 Rx gauge x 1/3" (Novofine Autocover) nystatin 100,000 unit/gram topical 1 applic TOP BID PRN #60 gm 09/27/20 12/11/21 Rx powder blood sugar diagnostic (OneTouch #200 ea 11/14/20 06/22/21 Rx Ultra Blue Test Strip) pen needle,diabetic dual safty 30 #200 ea 11/14/20 06/22/21 Rx gauge x 3/16" (BD AutoShield Duo Pen Needle) diclofenac sodium 1 % topical gel 4 g TOPICAL DAILY PRN 05/05/21 12/11/21 History cholecalciferol (vitamin D3) 50 2,000 unit PO QAM #30 cap 05/29/21 12/11/21 Rx mcg (2,000 unit) capsule donepezil 10 mg tablet (Aricept) 10 mg PO HS #90 tab 05/29/21 12/11/21 Rx simvastatin 20 mg tablet 20 mg PO HS #90 tab 05/29/21 12/11/21 Rx prednisone 20 mg tablet 20 mg PO QAM #90 tab 07/10/21 12/11/21 Rx lancets 30 gauge (ReadyLance #200 ea 07/11/21 Rx Safety Lancets) acetaminophen 325 mg tablet 650 mg PO TID MDD 3 GRAMS/24 HOURS 09/01/21 12/11/21 History acetaminophen 325 mg tablet 650 mg PO Q4 PRN MDD 3g 09/27/21 12/11/21 History insulin glargine 100 unit/mL (3 12 unit SC BID 09/27/21 12/11/21 History mL) subcutaneous pen (Lantus Solostar U-100 Insulin) Bengay Lidocaine Cream 4% 1 applic TOPICAL QID 12/11/21 12/11/21 History carvedilol 3.125 mg tablet (Coreg) 3.125 mg PO BID 12/11/21 12/11/21 History cyanocobalamin (vitamin B-12) 1,000 mcg PO QAM 12/11/21 12/11/21 History 1,000 mcg capsule docusate sodium 100 mg capsule 100 mg PO DAILY PRN 12/11/21 12/11/21 History (Colace) insulin aspart U-100 100 unit/mL 1 sliding scale dose SUBCUT 12/11/21 12/11/21 History subcutaneous cartridge (Novolog USEASDIRECTD PenFill U-100 Insulin aspart) ondansetron 4 mg disintegrating 4 mg PO Q6H PRN 12/11/21 12/11/21 History tablet pantoprazole 40 mg granules 40 mg PO BID 12/11/21 12/11/21 History delayed-release for susp in packet polyethylene glycol 3350 17 17 g PO Q24H PRN 12/11/21 12/11/21 History gram/dose oral powder (Miralax) potassium chloride 10 mEq 20 meq PO BID 12/11/21 12/11/21 History capsule,extended release zinc oxide 20 % topical ointment 1 applic TOPICAL QS 12/11/21 12/11/21 History zinc oxide 40 % topical ointment 1 applic TOPICAL UD PRN 12/11/21 12/11/21 History Past Med/Surg History Medical History Acute shoulder pain Anemia Atrial fibrillation Developed intraoperatively on 06/15/2019. 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 Cognitive impairment Complicated UTI (urinary tract infection) Dementia Depression Diabetes Encounter for pre-operative examination Gait instability Gastroesophageal reflux History of respiratory failure Hx of fall Hx pulmonary embolism Hx: UTI (urinary tract infection) Hydronephrosis with obstructing calculus Hyperlipidemia Knee pain Lumbago Lumbar facet joint syndrome Paroxysmal atrial fibrillation Spinal stenosis, lumbar region without neurogenic claudication Type 2 diabetes mellitus Vitamin D deficiency Weakness Surgical History H/O cystoscopy cyst with L stent: 06/15/2019 at [facility]. MAC. Patient given insulin for hyperglycemia and metoprolol and cardizem intraop H/O: hysterectomy History of appendectomy History of knee replacement procedure of left knee History of knee replacement procedure of right knee History of open reduction and internal fixation (ORIF) procedure L HUMEROUS Hx of cholecystectomy Hx of excision of epidermal inclusion cyst Hx of tonsillectomy Presence urogenital implant Family History Sister Diabetes Stroke Brother Diabetes Prostate cancer Father Lung disease Social History Smoking Status: Unknown if ever smoked Cigarettes Per Day: UTO; Hx Alcohol Use: No Hx Substance Use: No Preferred Language: Bahraini Communication Ability: Impaired Communication Tools: Facial Expression, Physical Gestures and Lip Movement/Reading Visual Impairment: Limited Hearing Ability: Hard of Hearing Scientific Programmer Required: Yes Beliefs That Will Affect Care: None Current Living Situation: Longterm Current Living Situation Comment: From [facility] current occupational status: retired How many Children do You have: 1 Other Information That Helps Us Care for You: No Feels Safe at Home: Declines to Answer caffeine: No Seatbelt Use: always Assistive Devices: Oxygen - at Night Review of Systems Review of Systems: Unobtainable due to cognitive status Physical Exam Physical Exam: General: Patient is sleeping and quite drowsy, but arousable. = Grimaces with palpation of abdomen, otherwise does not appear to be in any acute distress. Unable to participate further in exam. Head: Normocephalic, atraumatic ENT: PERRL, EOMI, no pharyngeal exudate, mucous membranes moist Chest: Clear to auscultation, on room air, no adventitious breath sounds Cardiac: Regular rate and rhythm, no murmur, no JVD, normal peripheral pulses, good capillary refill Abdominal: NABS x 4 quadrants, soft, TTP in left lower and upper quadrant; no rebound, guarding or tenderness Extremities: Normal inspection, no peripheral edema or erythema, calfs nontender to palpation Psych: Normal mood and affect Neuro: Strength intact bilaterally and rated 5/5, no motor deficits, speech is clear, no peripheral sensory deficits Skin: no rash or erythema Results & Data Results & Data ([facility]) Vital Signs (Past 12 Hours) Vital Signs Temp Pulse Pulse Resp BP BP Pulse Ox 12/11/21 10:00 101 H 23 124/67 94 12/11/21 09:30 101 H 23 111/53 L 92 12/11/21 09:15 103 H 22 120/53 L 92 12/11/21 09:00 105 H 23 120/60 91 12/11/21 08:45 103 H 24 131/65 93 12/11/21 08:30 24 93 12/11/21 08:22 95 12/11/21 08:16 94 12/11/21 08:15 104 H 23 95 12/11/21 08:07 39.5 C H 85 15 148/83 H 94 Laboratory Results Abnormal lab results 12/11/21 12/11/21 12/11/21 Range/Units 08:18 08:25 08:25 MCHC 31.8 L (32-36) g/dL RDW Std Deviation 50.0 H (36.4-46.3) fL Neut # (Auto) 9.33 H (1.4-6.5) K/uL Lymph # (Auto) 0.51 L (1.2-3.4) K/uL ESR 73 H (0-30) mm/hr BUN (6-23) mg/dl BUN/Creatinine Ratio (10-20) Glucose (70-99(Fasting)) mg/dl POC Glucose (70-99) mg/dl Calcium (8.5-10.1) mg/dl Magnesium (1.7-2.4) mg/dl Total Bilirubin (0.2-1.0) mg/dl AST (13-39) U/L Troponin I High Sens (0-14) pg/ml C-Reactive Protein (0-0.5) mg/dl Procalcitonin (0-0.5) ng/ml Urine Appearance Turbid A (Clear) Urine Protein 1+ H (Negative) Urine Glucose (UA) 2+ H (Negative) Urine Ketones 1+ H (Negative) Urine Blood 3+ H (Negative) Ur Leukocyte Esterase 3+ H (Negative) Urine WBC (Auto) >30 H (0-5) /hpf Urine RBC (Auto) 10-30 H (0-4) /hpf U Epithel Cells (Auto) >30 H (0-5) /lpf Urine Bacteria (Auto) 4+ H (Negative) Urine Yeast Budding A (None Prsent) 12/11/21 12/11/21 12/11/21 Range/Units 08:25 08:25 09:13 MCHC (32-36) g/dL RDW Std Deviation (36.4-46.3) fL Neut # (Auto) (1.4-6.5) K/uL Lymph # (Auto) (1.2-3.4) K/uL ESR (0-30) mm/hr BUN 35 H (6-23) mg/dl BUN/Creatinine Ratio 33.0 H (10-20) Glucose 262 H (70-99(Fasting)) mg/dl POC Glucose 298 H (70-99) mg/dl Calcium 11.1 H (8.5-10.1) mg/dl Magnesium 1.3 L (1.7-2.4) mg/dl Total Bilirubin 1.5 H (0.2-1.0) mg/dl AST 10 L (13-39) U/L Troponin I High Sens 23.1 H (0-14) pg/ml C-Reactive Protein 24.49 H (0-0.5) mg/dl Procalcitonin 0.74 H (0-0.5) ng/ml Urine Appearance (Clear) Urine Protein (Negative) Urine Glucose (UA) (Negative) Urine Ketones (Negative) Urine Blood (Negative) Ur Leukocyte Esterase (Negative) Urine WBC (Auto) (0-5) /hpf Urine RBC (Auto) (0-4) /hpf U Epithel Cells (Auto) (0-5) /lpf Urine Bacteria (Auto) (Negative) Urine Yeast (None Prsent) Diagnostic Findings Abdomen/Pelvis CT 12/11/21 08:16 CT abd pelvis wo con CLINICAL HISTORY: pain, lethargic, febrile TECHNIQUE: Helical axial images of the abdomen and pelvis were obtained. Automated dose lowering techniques and/or adjustment according to patient size were utilized for this exam. This exam was performed without intravenous contrast. CT DOSE: 1026.57 mGycm COMPARISON: None available at the time of this dictation. FINDINGS: Lower chest: Cardiomegaly is partially visualized. Liver: Unremarkable. No focal lesions are seen. Gallbladder and biliary tree: Patient is status post cholecystectomy. Physiologic prominence of the biliary ducts is noted. Pancreas: Unremarkable, no focal lesions. Spleen: Unremarkable. Adrenals: Unremarkable. Kidneys and ureters: Multiple cysts are seen. There is an obstructive stone at the left UVJ measuring 5 mm with resultant hydronephrosis/hydroureter. Nonobst ructive stones are also seen in the kidneys. Bladder: Limited evaluation due to underdistention. Reproductive organs: Patient is status post hysterectomy. Bowel: Unremarkable. Lymph nodes Retroperitoneal: Unremarkable. Mesenteric: Unremarkable. Pelvic: Unremarkable. Peritoneum: Normal. Vessels: Lucent centered calcifications in the right retroperitoneum are seen which may represent vascular phleboliths. Abdominal wall: Unremarkable. Bones: Degenerative changes in the visualized spine. IMPRESSION: Obstructive stone at the left UVJ with resultant hydronephrosis/hydroureter. Add itional findings as above without evidence of acute abnormality. ACT 112: Negative or not required by law. Electronically signed by: Frandy Christie M.D. 12/11/2021 10:23 AM Chest X-Ray 12/11/21 08:16 XR chest 1V portable HISTORY: 86 years-old Female SEPSIS acute sepsis COMPARISON: Chest radiograph 09/27/2021 TECHNIQUE: Portable AP view of the chest FINDINGS: The cardiac silhouette is enlarged. Atherosclerosis of the aorta. There is no pneumothorax, pleural effusion, airspace consolidation or overt pulmonary edema. Mild right hemidiaphragmatic elevation. Cholecystectomy. Degenerative changes of the shoulders and spine. ORIF hardware of the left humerus. IMPRESSION: Cardiomegaly without acute process. ACT 112: Negative or not required by law. The above report was generated using voice recognition software. It may contain grammatical, syntax or spelling errors. Electronically signed by: Tong Mendes M.D. 12/11/2021 8:[address] 12/11/21 08:16 CT SCAN OF THE BRAIN WITHOUT IV CONTRAST CLINICAL HISTORY: Change in mental status. COMPARISON STUDY: CT of the brain dated 11/28/2020. TECHNIQUE: Unenhanced axial CT scan of the brain is performed from the vertex to the skull base. A dose lowering technique was utilized adhering to the principles of ALARA. CT DOSE: 690.05 mGycm FINDINGS: Brain parenchyma: There is age-related involutional change noting moderate to advanced subcortical and periventricular microangiopathic disease. There is no hemorrhage, mass effect, or evidence of acute territorial ischemia by CT criteria. Croft-white matter differentiation is preserved. No extra-axial fluid collection is seen. Ventricles, sulci, cisterns: Prominent secondary to involutional change. Intracranial vasculature: There is atherosclerotic calcification of the cavernous carotid arteries. Calvarium: Unremarkable. Sinuses and mastoids: There is complete opacification of the left sphenoid sinus. The remaining visualized paranasal sinuses are clear. The mastoid air cells are well pneumatized. Orbits: The bony orbits are grossly intact. There are bilateral ocular lens im plants. IMPRESSION: There is no hemorrhage, mass effect, or evidence of acute territorial ischemia by CT criteria. ACT 112: Negative or not required by law. Electronically signed by: Chandan Scott M.D. 12/11/2021 9:55 AM ECG Additional Comments: Sinus tachycardia with Premature supraventricular complexes Left anterior fascicular block Nonspecific T wave abnormality Abnormal ECG When compared with ECG of 27-SEP-2021 12:10, Premature supraventricular complexes are now Present Inverted T waves have replaced nonspecific T wave abnormality in Anterior leads. Code Status & VTE Plan Code Status DNR/DNI. VTE Prophylaxis Plan VTE Prophylaxis will be ordered: Yes Supervising Physician Co-Signing Physician Notes PA Supervision Note: I personally saw and examined the patient. I verified all javier points and agree with BOBBY Good with the following exceptions and/or additions: Changes made to A/P as above Pt lethargic and confused, not able to give history. Presents with fevers, confusion, found to have UTI, obstructing left ureterolithiasis, and sepsis. Taken to OR urgently for stone removal and stent placement History and ROS reviewed as above O- Vitals reviewed Gen: [lethargic, opens eyes briefly at times and nods head yes and no,NAD] HEENT: [anicteric sclerae] CV: [RRR no mgr nl S1S2] Pulm: [CTAB no wcr] Abd: [+BS soft NT ND no masses or hernias] Ext: [no edema] Skin: [no rashes, warm/dry] Neuro: [moves all extremities] Labs, rads, ECG reviewed A/P-86 yo female with history as above, here with sepsis, acute encephalopathy, UTI and ureterolithiasis, NBA, myocardial demand ischemia. Treatment with stone removal and ureteral stent appreciated by Urology -continue IVFs, IV hydrocortisone for BP support, IV ZOsyn follow BCxs, Ur cx and narrow abx as able to -supportive care PG Care Time/CCT Total # of Minutes Spent Total Time Spent with Patient: Total time spent is greater than 50% in coordination of care (as documented) at patient's floor/unit and/or counseling patient: Coding Level of Care Code 13145 Initial Inpt Care Lvl 3 Diagnoses Ureterovesical junction (UVJ) obstruction N13.5 Sepsis A41.9 Urinary tract infection N39.0 Hypercalcemia E83.52 Polymyalgia rheumatica M35.3 Chronic pain G89.29 Gastroesophageal reflux K21.9 Type 2 diabetes mellitus E11.9 Hyperlipidemia E78.5 Hypertension I10 Hypertension type: unspecified Dementia F03.90 Dementia behavioral disturbance: without behavioral disturbance Dementia type: unspecified type Acute kidney injury N17.9 Hypomagnesemia E83.42 Encephalopathy G93.40 (1) Dementia Dementia behavioral disturbance: without behavioral disturbance Dementia type: unspecified type Qualified Code(s): F03.90 - Unspecified dementia without behavioral disturbance (2) Hypertension Hypertension type: unspecified Qualified Code(s): I10 - Essential (primary) hypertension
[2021-12-11] MEDS ORDERED: HYDROCORTISONE SOD SUCCINATE 100 MG/2 ML VIAL IV SCH ×2 (11:30→11:45)
--- NOTE | 2021-12-11 12:04 | Urology Consultation ---
Date of Consultation December 11, 2021 Assessment & Plan (1) Sepsis: (2) Urinary tract infection: (3) Ureterovesical junction (UVJ) obstruction: 86yo F who presented with fever and AMS and was admitted with an obstructing 5mm left UVJ stone with concern for sepsis and UTI. - Febrile at 39.5C, tachycardic. - Labs reviewed - Wbc 10.37 and creatinine 1.06. - UA indicative of infection, urine and blood culture pending. - Plan of care reviewed with Dr. Mendez, on-call urologist. - Given her fever and suspected UTI in the context of an obstructing 5mm left UVJ stone, will proceed with OR for cystoscopy, left retrograde pyelogram, left ureteral stent placement. - Plan of care discussed with son Benedict (HIPAA). Risks/benefits of procedure discussed. All questions were answered. - Patient's son states understanding, agrees to proceed, and will sign consent. - Risks and benefits also to be reviewed with patient/son by Dr. Mendez. OR notified. Covid test negative. CXR and EKG in chart. Pt covered with IV Zosyn given in ED. - Keep NPO. - Continue supportive care and antibiotic therapy. - Will continue to follow. ATTENDING NOTE: Independently evaluated, assessed, examined, and examined. Agree with above. Altered mental status with sepsis and obstructing stone. Hypotension improved with hydration. Tachycardia also improving. Significant fever in ER. on Zosyn for broad spec coverage. Risks and benefits discussed at length for procedure. These include bleeding, infection, injury to surrounding tissues or organs, and risks associated with anesthesia. Patient states understanding and agrees to proceed. Will sign consent and proceed with emergent stent placement on left. History of Present Illness Reason for Consultation: infected kidney stone History of Present Illness 86 year-old female with past medical history of DM2, polymyalgia rheumatica on chronic prednisone, hypertension, GERD, dementia, and recurrent UTIs who presented today from [facility] due to altered mental status and fever. On arrival, she was febrile at 39.5, HR 104, normotensive and on room air. No leukocytosis, renal function normal. UA with WBCs, RBCs, leuk esterase, bacteria, yeast. Blood and urine culture sent. CT abdomen pelvis obtained and remarkable for an obstructing 5mm left UVJ stone with resultant hydronephrosis and hydroureter. She received IVF, IV Zosyn and Tylenol in the ED and admitted to medicine for further management. Urology consulted for infection kidney stone. CT abdomen pelvis - Obstructive stone at the left UVJ with resultant hydronephrosis/hydroureter. Additional findings as above without evidence of acute abnormality. Pt examined at bedside in the ED. Asleep on arrival, but arousable. Awakens briefly to verbal/tactile stimuli. Did not answer questions or follow commands. Drowsy. No acute distress. Son at bedside who provides HPI. States he was contacted by her facility this morning that his mother had been more confused, had a fever and low oxygen saturations. She was brought to the ED for evaluation of this. Per chart review/EMS report, patient had been experiencing lower abdominal pain over the past few days. Per son, pt has a hx of stones requiring intervention in the past. Has been seen by urology in the past. Last seen in Jul [address] Mendez. Also has a recent hx of recurrent UTI. Allergies Allergy/AdvReac Type Severity Reaction Status Date / Time adhesive Allergy Intermediate SKIN Verified 12/11/21 09:21 BLISTERS tetanus toxoid, adsorbed Allergy Mild EDEMA AT Verified 12/11/21 09:21 SITE codeine AdvReac Intermediate HEART Verified 12/11/21 09:21 PALPITATIONS, RECIEVED MORPHINE IV IN 2004 ADMIT Home Medications Medication Instructions Recorded Confirmed Type incontinence pad, liner, disp #168 ea 08/11/19 06/22/21 Rx (Overnight Pad For Women) pen needle, diabetic, safety 30 #100 ea 06/28/20 06/22/21 Rx gauge x 1/3" (Novofine Autocover) nystatin 100,000 unit/gram topical 1 applic TOP BID PRN #60 gm 09/27/20 12/11/21 Rx powder blood sugar diagnostic (OneTouch #200 ea 11/14/20 06/22/21 Rx Ultra Blue Test Strip) pen needle,diabetic dual safty 30 #200 ea 11/14/20 06/22/21 Rx gauge x 3/16" (BD AutoShield Duo Pen Needle) diclofenac sodium 1 % topical gel 4 g TOPICAL DAILY PRN 05/05/21 12/11/21 History cholecalciferol (vitamin D3) 50 2,000 unit PO QAM #30 cap 05/29/21 12/11/21 Rx mcg (2,000 unit) capsule donepezil 10 mg tablet (Aricept) 10 mg PO HS #90 tab 05/29/21 12/11/21 Rx simvastatin 20 mg tablet 20 mg PO HS #90 tab 05/29/21 12/11/21 Rx prednisone 20 mg tablet 20 mg PO QAM #90 tab 07/10/21 12/11/21 Rx lancets 30 gauge (ReadyLance #200 ea 07/11/21 Rx Safety Lancets) acetaminophen 325 mg tablet 650 mg PO TID MDD 3 GRAMS/24 HOURS 09/01/21 12/11/21 History acetaminophen 325 mg tablet 650 mg PO Q4 PRN MDD 3g 09/27/21 12/11/21 History insulin glargine 100 unit/mL (3 12 unit SC BID 09/27/21 12/11/21 History mL) subcutaneous pen (Lantus Solostar U-100 Insulin) Bengay Lidocaine Cream 4% 1 applic TOPICAL QID 12/11/21 12/11/21 History carvedilol 3.125 mg tablet (Coreg) 3.125 mg PO BID 12/11/21 12/11/21 History cyanocobalamin (vitamin B-12) 1,000 mcg PO QAM 12/11/21 12/11/21 History 1,000 mcg capsule docusate sodium 100 mg capsule 100 mg PO DAILY PRN 12/11/21 12/11/21 History (Colace) insulin aspart U-100 100 unit/mL 1 sliding scale dose SUBCUT 12/11/21 12/11/21 History subcutaneous cartridge (Novolog USEASDIRECTD PenFill U-100 Insulin aspart) ondansetron 4 mg disintegrating 4 mg PO Q6H PRN 12/11/21 12/11/21 History tablet pantoprazole 40 mg granules 40 mg PO BID 12/11/21 12/11/21 History delayed-release for susp in packet polyethylene glycol 3350 17 17 g PO Q24H PRN 12/11/21 12/11/21 History gram/dose oral powder (Miralax) potassium chloride 10 mEq 20 meq PO BID 12/11/21 12/11/21 History capsule,extended release zinc oxide 20 % topical ointment 1 applic TOPICAL QS 12/11/21 12/11/21 History zinc oxide 40 % topical ointment 1 applic TOPICAL UD PRN 12/11/21 12/11/21 History Patient History Medical History Acute shoulder pain Anemia Atrial fibrillation Developed intraoperatively on 06/15/2019. 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 Cognitive impairment Complicated UTI (urinary tract infection) Dementia Depression Diabetes Encounter for pre-operative examination Gait instability Gastroesophageal reflux History of respiratory failure Hx of fall Hx pulmonary embolism Hx: UTI (urinary tract infection) Hydronephrosis with obstructing calculus Hyperlipidemia Knee pain Lumbago Lumbar facet joint syndrome Paroxysmal atrial fibrillation Spinal stenosis, lumbar region without neurogenic claudication Type 2 diabetes mellitus Vitamin D deficiency Weakness Surgical History H/O cystoscopy cyst with L stent: 06/15/2019 at [facility]. MAC. Patient given insulin for hyperglycemia and metoprolol and cardizem intraop H/O: hysterectomy History of appendectomy History of knee replacement procedure of left knee History of knee replacement procedure of right knee History of open reduction and internal fixation (ORIF) procedure L HUMEROUS Hx of cholecystectomy Hx of excision of epidermal inclusion cyst Hx of tonsillectomy Presence urogenital implant Family History Sister Diabetes Stroke Brother Diabetes Prostate cancer Father Lung disease Social History Smoking Status: Unknown if ever smoked Cigarettes Per Day: UTO; Hx Alcohol Use: No Hx Substance Use: No Preferred Language: Armenian Communication Ability: Impaired Communication Tools: Facial Expression, Physical Gestures and Lip Movement/Reading Visual Impairment: Limited Hearing Ability: Hard of Hearing 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 Beliefs That Will Affect Care: None Current Living Situation: Snf Current Living Situation Comment: From [facility] current occupational status: retired How many Children do You have: 1 Other Information That Helps Us Care for You: No Feels Safe at Home: Declines to Answer caffeine: No Seatbelt Use: always Assistive Devices: Oxygen - at Night Review of Systems Review of Systems: Unobtainable due to cognitive status Physical Exam Constitutional: + altered mental status Drowsy Neck: normal visual inspection Respiratory: normal respiratory effort; no respiratory distress and no labored breathing Cardiovascular: Extremities: no pedal edema Gastrointestinal (Abdomen): Inspection/Auscultation: abdomen normal to inspection Musculoskeletal: Head/Neck/Chest: normocephalic Extremities: extremities normal to inspection Skin: No visible rashes or lesions Neurologic: moves all extremities Asleep on arrival but arousable. Awakened briefly to verbal/tactile stimuli. Did not answer questions or follow commands. Results & Data ([facility]) Vital Signs (Past 12 Hours) Vital Signs Temp Pulse Pulse Resp BP BP Pulse Ox 12/11/21 11:00 96 H 17 123/67 95 12/11/21 10:45 95 H 19 123/56 L 93 12/11/21 10:30 96 H 24 117/70 95 12/11/21 10:15 96 H 20 130/53 L 92 12/11/21 10:00 101 H 23 124/67 94 12/11/21 09:30 101 H 23 111/53 L 92 12/11/21 09:15 103 H 22 120/53 L 92 12/11/21 09:00 105 H 23 120/60 91 12/11/21 08:45 103 H 24 131/65 93 12/11/21 08:30 24 93 12/11/21 08:22 95 12/11/21 08:16 94 12/11/21 08:15 104 H 23 95 12/11/21 08:07 39.5 C H 85 15 148/83 H 94 PG Care Time/CCT Total # of Minutes Spent Total Time Spent with Patient: Total time spent is greater than 50% in coordination of care (as documented) at patient's floor/unit and/or counseling patient: Coding Level of Care Code 43102 Initial Inpt Care Lvl 2 Diagnoses Sepsis A41.9 Urinary tract infection N39.0 Ureterovesical junction (UVJ) obstruction N13.5
[2021-12-11] MEDS ORDERED: PNEUMOCOCCAL POLYSACCHARIDES 25 MCG/0.5 ML VIAL/SYR IM ONE (12:13)
[2021-12-11] MEDS ORDERED: GLUCOSE 40% GEL 15 GM TUBE PO PRN (12:28)
[2021-12-11] MEDS ORDERED: NYSTATIN POWDER 15GM BTL EXT PRN (12:28)
[2021-12-11] MEDS ORDERED: CARBOHYDRATES FOR HYPOGLYCEMIA PO PRN (12:28)
[2021-12-11] MEDS ORDERED: ONDANSETRON INJ 2 MG/ML 2 ML VIAL IV PRN (12:28)
[2021-12-11] MEDS ORDERED: DOCUSATE SODIUM 100 MG CAP PO PRN (12:28)
[2021-12-11] MEDS ORDERED: DEXTROSE 50% 50 ML SYRINGE IV PRN (12:28)
[2021-12-11] MEDS ORDERED: GLUCOSE 10 TABS/TUBE PO PRN (12:28)
[2021-12-11] MEDS ORDERED: ACETAMINOPHEN 325 MG TAB PO PRN (12:28)
[2021-12-11] MEDS ORDERED: POLYETHYLENE (MIRALAX) 17 GM PACK PO PRN (12:28)
[2021-12-11] MEDS ORDERED: DICLOFENAC SOD 1% GEL 100 GM TUBE EXT PRN (12:28)
[2021-12-11] MEDS ORDERED: GLUCAGON FOR INJ 1 MG VIAL SQ PRN (12:28)
[2021-12-11 12:47] LABS: Troponin I High Sensitivity 25.8 pg/ml (0-14)
[2021-12-11] MEDS: INSULIN ASPART PER UNIT SC SCH ×3 (12:51→22:00)
[2021-12-11] MEDS ORDERED: [UNRECOGNIZED DRUG - OTHER] TOP SCH (13:00)
[2021-12-11] MEDS ORDERED: LIDOCAINE TOP SCH (13:00)
[2021-12-11 13:33] LABS: Phosphorus 2.3 mg/dl (2.5-4.9)
[2021-12-11] MEDS: MAGNESIUM SULFATE / D5W 1 GM/100 ML BAG IV SCH ×2 (13:52→21:47)
[2021-12-11] MEDS: LACTATED RINGER'S 1,000 ML IV SCH ×2 (13:52→23:25)
[2021-12-11] MEDS: HYDROCORTISONE SOD 100 MG in SYRINGE 0 ML IV SCH ×2 (13:56→23:24)
--- NOTE | 2021-12-11 14:18 | Anesthesiology Consultation ---
Date of Service December 11, 2021 Assessment & Plan Chart Review high risk, urgent procedure, d/w the son on the phoen and at the bedside Consults Requested none ASA ASA4 Proposed Anesthesia Anesthesia Type: MAC Risk / Benefits Reviewed With: PT / POA / Parent / Guardian, Accepts Plan and Informed Consent Obtained Additional Comments: consent from son, Benedict CHA History Surgery Operation Date: 12/11/21 11:30 Proposed Procedures p Cystoscopy, Left Retrograde Pyelogram Left Stent Insertion - Christiano Mendez, DO pt is wheelchair bound after recent UTI, in skilled NH facility, with dementia, intermittently adequate, with HTN, DM, PMR, DVT and PE, DNR/DNI, now with urosepsis d/t obstructing stone, acute mental status changes, ARF, electrolyte abnormalities (hypomagnesemia, hypercalcemia) for cystoscopy etc as above DNR status d/w the son, Benedict Baumann, STARLA, suspended for perioperative period. from admission H&P today at 10:38 am: Assessment & Plan (1) Ureterovesical junction (UVJ) obstruction: Plan: - 5mm left sided UVJ stone with hydronephrosis and hydroureter. - Source of sepsis, urology consulted, plan for cystoscopy with stent placement this afternoon. - Keep patient NPO, support with IVF and ABX. (2) Sepsis: Plan: - 2/2 obstructing left UVJ stone. - Febrile, tachycardic, and with increase in baseline confusion. - WBC 10.37, CRP 24.24, PCT 0.74. - MAP- > 65 - Lactate- 2.0 - Hemodynamic resuscitation plan- 1L NSS bolus x2, continue maintenance IVF - Blood, urine cultures pending. - Zosyn IV q8h. (3) Encephalopathy: Plan: - Suspect this is 2/2 to UTI/sepsis. Mag 1.3, otherwise no electrolyte abnormalities, no hypoglycemia. (4) Acute kidney injury: Plan: - Likely secondary to UTI/obstructive stone. - Cr 1.06, up from baseline of ~.6-.7; GFR reduced. - Receiving IVF as above. - Renally dose medications, avoid nephrotoxins. - Follow renal function on AM labs. (5) Urinary tract infection: Plan: - Zosyn as above, cultures sent. (6) Hypomagnesemia: Plan: -1.3 in ED, will replete and recheck in AM. (7) Hypercalcemia: Plan: - Ca 11.1, receiving IVF as above. - Checking PTH, vit D, phosphorus-- phos mildly low at 2.3, otherwise vit D and PTH wnl. - Follow on AM labs. (8) Polymyalgia rheumatica: Plan: - Takes 20 mg of prednisone chronically. Will require stress dosing due to infection/plan for ureteral stent placement. - Hydrocortisone 100 mg every 8h for now. (9) Gastroesophageal reflux: Plan: - Continue protonix 40 mg BID. (10) Type 2 diabetes mellitus: Plan: - Lantus 12 units BID at home with SSI. - Diabetic diet. (11) Hypertension: Plan: - Continue Coreg 3.125 twice daily, may continue this tonight, hold for BP < 100 or HR < 60. (12) Hyperlipidemia: Plan: - Continue simvastatin 20 mg daily. (13) Dementia: Plan: - Continue donepezil 10 mg hs. (14) Chronic pain: Plan: - Continue topical diclofenac gel, lidocaine cream, Tylenol. Plan: - Admit to PCU. - SCDs for DVT ppx. - DNR/DNI. Height/Weight Height: 5 ft 6 in Weight: 66.7 kg Allergies Allergy/AdvReac Type Severity Reaction Status Date / Time adhesive Allergy Intermediate SKIN Verified 12/11/21 09:21 BLISTERS tetanus toxoid, adsorbed Allergy Mild EDEMA AT Verified 12/11/21 09:21 SITE codeine AdvReac Intermediate HEART Verified 12/11/21 09:21 PALPITATIONS, RECIEVED MORPHINE IV IN 2004 ADMIT Medications Home Medications Medication Instructions Recorded Confirmed Last Taken incontinence pad, liner, disp #168 ea 08/11/19 06/22/21 Unknown (Overnight Pad For Women) pen needle, diabetic, safety 30 #100 ea 06/28/20 06/22/21 Unknown gauge x 1/3" (Novofine Autocover) nystatin 100,000 unit/gram topical 1 applic TOP BID PRN #60 gm 09/27/20 12/11/21 Unknown powder blood sugar diagnostic (OneTouch #200 ea 11/14/20 06/22/21 Unknown Ultra Blue Test Strip) pen needle,diabetic dual safty 30 #200 ea 11/14/20 06/22/21 Unknown gauge x 3/16" (BD AutoShield Duo Pen Needle) diclofenac sodium 1 % topical gel 4 g TOPICAL DAILY PRN 05/05/21 12/11/21 Unknown cholecalciferol (vitamin D3) 50 2,000 unit PO QAM #30 cap 05/29/21 12/11/21 12/10/21 08:00 mcg (2,000 unit) capsule donepezil 10 mg tablet (Aricept) 10 mg PO HS #90 tab 05/29/21 12/11/21 12/10/21 20:00 simvastatin 20 mg tablet 20 mg PO HS #90 tab 05/29/21 12/11/21 12/10/21 20:00 prednisone 20 mg tablet 20 mg PO QAM #90 tab 07/10/21 12/11/21 12/10/21 08:00 lancets 30 gauge (ReadyLance #200 ea 07/11/21 Unknown Safety Lancets) acetaminophen 325 mg tablet 650 mg PO TID MDD 3 GRAMS/24 HOURS 09/01/21 12/11/21 12/10/21 20:00 650 mg acetaminophen 325 mg tablet 650 mg PO Q4 PRN MDD 3g 09/27/21 12/11/21 Unknown insulin glargine 100 unit/mL (3 12 unit SC BID 09/27/21 12/11/21 12/10/21 20:00 mL) subcutaneous pen (Lantus 12 units Solostar U-100 Insulin) Bengay Lidocaine Cream 4% 1 applic TOPICAL QID 12/11/21 12/11/21 12/10/21 20:00 carvedilol 3.125 mg tablet (Coreg) 3.125 mg PO BID 12/11/21 12/11/21 12/10/21 20:00 cyanocobalamin (vitamin B-12) 1,000 mcg PO QAM 12/11/21 12/11/21 12/10/21 08:00 1,000 mcg capsule docusate sodium 100 mg capsule 100 mg PO DAILY PRN 12/11/21 12/11/21 Unknown (Colace) insulin aspart U-100 100 unit/mL 1 sliding scale dose SUBCUT 12/11/21 12/11/21 12/10/21 20:00 subcutaneous cartridge (Novolog USEASDIRECTD 1 unit PenFill U-100 Insulin aspart) ondansetron 4 mg disintegrating 4 mg PO Q6H PRN 12/11/21 12/11/21 12/10/21 09:20 tablet pantoprazole 40 mg granules 40 mg PO BID 12/11/21 12/11/21 12/11/21 06:00 delayed-release for susp in packet polyethylene glycol 3350 17 17 g PO Q24H PRN 12/11/21 12/11/21 Unknown gram/dose oral powder (Miralax) potassium chloride 10 mEq 20 meq PO BID 12/11/21 12/11/21 12/10/21 20:00 capsule,extended release zinc oxide 20 % topical ointment 1 applic TOPICAL QS 12/11/21 12/11/21 12/10/21 zinc oxide 40 % topical ointment 1 applic TOPICAL UD PRN 12/11/21 12/11/21 Unknown Active Medications Generic Name Dose Route Start Last Admin Trade Name Freq PRN Reason Stop Dose Admin Lactated Ringer's 1,000 mls @ 125 mls/hr 12/11/21 12:28 12/11/21 13:52 Lr IV 01/10/22 12:27 125 mls/hr .Q8H PHOEBE Administration Piperacillin Sod/Tazobactam 115 mls @ 28.75 mls/hr 12/11/21 14:00 12/11/21 15:15 Sod 3.375 gm/ Dextrose IV 12/21/21 13:59 28.8 mls/hr Q8H PHOEBE Administration Protocol Magnesium Sulfate/Dextrose 1 gm in 100 mls @ 50 mls/hr 12/11/21 13:30 12/11/21 13:52 Magnesium Sulfate / D5w IV 12/11/21 21:29 50 mls/hr Q2H PHOEBE Administration Hydrocortisone Sodium 2 mls @ 4 mls/min 12/11/21 13:00 12/11/21 13:56 Succinate 100 mg/ Syringe IV 01/10/22 12:59 4 mls/min Q8H PHOEBE Administration Insulin Aspart 0 units 12/11/21 12:28 12/11/21 12:51 Insulin Aspart Per Unit SC 01/10/22 12:27 5 units ACHS PHOEBE Administration Past Medical History Medical History Acute shoulder pain Anemia Atrial fibrillation Developed intraoperatively on 06/15/2019. 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 Cognitive impairment Complicated UTI (urinary tract infection) Dementia Depression Diabetes Encounter for pre-operative examination Gait instability Gastroesophageal reflux History of respiratory failure Hx of fall Hx pulmonary embolism Hx: UTI (urinary tract infection) Hydronephrosis with obstructing calculus Hyperlipidemia Knee pain Lumbago Lumbar facet joint syndrome Paroxysmal atrial fibrillation Spinal stenosis, lumbar region without neurogenic claudication Type 2 diabetes mellitus Vitamin D deficiency Weakness Exercise / Class Metabolic Activity IV < 2 Limit ADL/Bedbound Past Family History Family History Sister Diabetes Stroke Brother Diabetes Prostate cancer Father Lung disease Past Surgical History Surgical History H/O cystoscopy cyst with L stent: 06/15/2019 at [facility]. MAC. Patient given insulin for hyperglycemia and metoprolol and cardizem intraop H/O: hysterectomy History of appendectomy History of knee replacement procedure of left knee History of knee replacement procedure of right knee History of open reduction and internal fixation (ORIF) procedure L HUMEROUS Hx of cholecystectomy Hx of excision of epidermal inclusion cyst Hx of tonsillectomy Presence urogenital implant Past Anesthesia History No Hx of Anesthesia Complications History of PONV No Hx of PONV Social History Smoking Status: Unknown if ever smoked Smoking cigarettes per day: UTO Hx Alcohol Use: No Alcohol type: wine alcohol intake frequency: holidays/special occasions only Hx Substance Use: No substance use type: does not use Review of Systems ROS Unobtainable: All systems reviewed & are unremarkable except as noted in HPI & below and Unobtainable due to reduced consciousness (history from the son only, pt refuses or unable to respond to simple questions) Constitutional: as per Subjective / HPI Eyes: as per Subjective / HPI Ear, Nose, Mouth, Throat: as per Subjective / HPI Respiratory: as per Subjective / HPI Cardiovascular: as per Subjective / HPI Gastrointestinal: as per Subjective / HPI Genitourinary (Female): as per Subjective / HPI Musculoskeletal: as per Subjective / HPI and + muscle weakness Neurologic: as per Subjective / HPI, + generalized weakness, + behavioral changes and + confusion Psychiatric: as per Subjective / HPI, + behavioral changes and + depression Endocrine: as per Subjective / HPI Hematologic / Lymphatic: as per Subjective / HPI Allergy / Immunological: as per Subjective / HPI Physical Exam Vital Signs Last Vital Signs Temp 37.1 C 12/11/21 14:50 Pulse 86 12/11/21 14:51 Resp 17 12/11/21 14:50 BP 123/71 12/11/21 14:50 Pulse Ox 96 12/11/21 14:50 ENMT Thyromental Distance: > or= 3.5 Finger Breadths non-cooperative with exam Neck normal visual inspection and trachea midline Respiratory normal respiratory effort Auscultation: lungs clear to auscultation bilaterally Cardiovascular Rate/Rhythm: regular rate and regular rhythm Heart Sounds: no murmur Neurologic non-cooperative. constricted pupils. responds to request to open the eyes but won't answer other questions Psychiatric somnolent, arousable to voice Testing Laboratory Results 12/11/21 08:25 12/11/21 08:25 PT 10.9 Seconds (9.0-12.0) 12/11/21 08:25 INR 1.0 (0.9-1.1) 12/11/21 08:25 APTT 25.6 Seconds (21.0-31.0) 12/11/21 08:25 Urine Color Yellow 12/11/21 08:18 Urine Appearance Turbid (Clear) A 12/11/21 08:18 Urine pH 5.0 (4.5-7.5) 12/11/21 08:18 Ur Specific [place] 1.023 (1.000-1.030) 12/11/21 08:18 Urine Protein 1+ (Negative) H 12/11/21 08:18 Urine Glucose (UA) 2+ (Negative) H 12/11/21 08:18 Urine Ketones 1+ (Negative) H 12/11/21 08:18 Urine Nitrite Negative (Negative) 12/11/21 08:18 Ur Leukocyte Esterase 3+ (Negative) H 12/11/21 08:18 Urine WBC (Auto) >30 /hpf (0-5) H 12/11/21 08:18 Urine RBC (Auto) 10-30 /hpf (0-4) H 12/11/21 08:18 U Hyaline Cast (Auto) 1-5 /lpf (0-5) 12/11/21 08:18 U Epithel Cells (Auto) >30 /lpf (0-5) H 12/11/21 08:18 Urine Bacteria (Auto) 4+ (Negative) H 12/11/21 08:18 12/11/21 12/11/21 12/11/21 15:02 12:46 09:13 POC Glucose 272 H 262 H 298 H
[2021-12-11] MEDS: PIPERACILLIN/TAZOBACTAM 3.375 GM in DEXTROSE 5% 100 ML IV SCH ×2 (15:15→22:13)
[2021-12-11] MEDS ORDERED: LIDOCAINE 2% 2 ML VIAL/AMP(20MG/ML) INFIL ONE (15:36)
[2021-12-11] MEDS ORDERED: PROPOFOL IV EMULSION 10 MG/ML 20 ML VIAL IV ONE (15:36)
[2021-12-11] MEDS ORDERED: fentaNYL citrate 100 MCG/2 ML VIAL ONE (15:36)
[2021-12-11] MEDS ORDERED: NON-FORMULARY MEDICATION (Zinc Oxide 20 % Ointment) TOP SCH (16:00)
[2021-12-11] MEDS ORDERED: ONDANSETRON INJ 2 MG/ML 2 ML VIAL ONE (16:15)
--- NOTE | 2021-12-11 16:21 | Operative Report ---
[facility] Post Operative Report Pre & Post Diagnosis Obstructing left stone. Sepsis Same Operation Date: 12/11/21 11:30 <No data on this case meets the specified criteria> I identified the patient and participated in the time-out.: Yes Procedure Cystoscopy with left ureteroscopy, ureteral dilation, stone extraction, urine aspiration, retrograde pyelogram, and stent Operation Date: 12/11/21 11:30 <No data on this case meets the specified criteria> Surgeon Christiano Mendez, II, DO Peanut Shaker None Estimated Blood Loss 1 Findings Consistent with Post-Op Diagnosis Stone impacted at UO and unable to advance wire. Stone was displaced into ureter and large amount of purulent urine was appreciated. Specimens Stone Fragments Drains 6 Fr x24 20 Fr hodge Anesthesia Type General Complications none Disposition Disposition: Recovery Room Indications Patient with bothersome stones and developed AMS and sepsis. Risks and benefits discussed at length. Description of Procedure Patient was consented and brought back to the operating room. Patient was placed under anesthesia in the supine position and moved to the dorsal lithotomy position. Patient was prepped and draped in the regular sterile fashion. A time out was completed. A 30degree Cystoscope was placed into the bladder and the entire bladder was examined. The UO's were identified. The stone was found impacted into the wall at the UO. The UO was cannulized with a catheter and a retrograde pyelogram was completed. A wire was then attempted to be placed but would not advance. . The Rigid ureteroscope was taken into the ureter. The stone was identified. The stricture was dilated and The stone was grasped and removed and sent for analysis. Immediately purulent urine was noted. This was aspirated and sent for culture. A wire was able to be advanced. No residual large fragments or areas of concern were noted. The scope was slowly removed with the wire left in place. Contrast was placed through the scope for a pyelogram to assist in stent placement. The entire ureter was examined as the scope was slowly removed. No obstructions or other areas of concern were noted. With the wire in place, a 6 Fr Double J stent was placed. It was confirmed with fluoroscopy. With the stent in place, the bladder was emptied. The scope was removed. A 20 Fr catheter was placed to drain the bladder. The patient was cleaned, aroused from anesthesia, and transferred to the pacu in stable condition having tolerated the procedure well with no complications. I was present and participated in all aspects of the procedure. The patient will be monitored in the PACU until transferred. Will likely need additional stone treatment after infection cleared. Will transfer back to floor for critical management of sepsis. I attest to the content of the Intraoperative Record and any orders documented therein. Any exceptions are noted below.
--- NOTE | 2021-12-11 16:31 | Fluoroscopy Report ---
INTRAOPERATIVE RADIOGRAPHS CLINICAL HISTORY: Left-sided ureteral stent placement. Fluoroscopy time: 30 seconds. FINDINGS: 4 spot fluoroscopic views of the left abdomen are correlated with abdominal CT dated 12/12/19. A catheter is placed in the left ureter which is then opacified with contrast. There is left hydr oureteronephrosis. The final 2 images show the proximal and distal ends of the left ureteral stent in appropriate position. IMPRESSION: Intraoperative images from a left ureteral stent placement procedure as above. Electronically signed by: Chandan Scott M.D. 12/11/2021 4:29 PM
--- NOTE | 2021-12-11 16:57 | Anesthesiology Progress Note ---
Date of Service December 11, 2021 Anesthesia Post Procedure Vital Signs Vital Signs: Temp Pulse Pulse Resp BP BP BP 12/11/21 16:50 75 18 108/48 L 12/11/21 16:40 71 18 123/65 12/11/21 16:31 96.8 F L 78 16 102/59 L 12/11/21 14:51 86 12/11/21 14:50 98.8 F 82 17 123/71 12/11/21 12:03 98.4 F 89 20 135/78 12/11/21 11:00 96 H 17 123/67 12/11/21 10:45 95 H 19 123/56 L 12/11/21 10:30 96 H 24 117/70 12/11/21 10:15 96 H 20 130/53 L 12/11/21 10:00 101 H 23 124/67 12/11/21 09:30 101 H 23 111/53 L 12/11/21 09:15 103 H 22 120/53 L 12/11/21 09:00 105 H 23 120/60 12/11/21 08:45 103 H 24 131/65 12/11/21 08:30 24 12/11/21 08:22 12/11/21 08:16 12/11/21 08:15 104 H 23 12/11/21 08:07 103.1 F H 85 15 148/83 H Pulse Ox 12/11/21 16:50 93 12/11/21 16:40 99 12/11/21 16:31 99 12/11/21 14:51 12/11/21 14:50 96 12/11/21 12:03 95 12/11/21 11:00 95 12/11/21 10:45 93 12/11/21 10:30 95 12/11/21 10:15 92 12/11/21 10:00 94 12/11/21 09:30 92 12/11/21 09:15 92 12/11/21 09:00 91 12/11/21 08:45 93 12/11/21 08:30 93 12/11/21 08:22 95 12/11/21 08:16 94 12/11/21 08:15 95 12/11/21 08:07 94 Transfer of Care Handoff Completed per policy Notes Mental Status: alert / awake / arousable and participated in evaluation Patient Amnestic to Procedure: Yes Nausea / Vomiting: adequately controlled Pain: adequately controlled Airway Patency, RR, SpO2: stable & adequate BP & HR: stable & adequate Hydration State: stable & adequate Anesthetic Complications: no major complications apparent and Pt Satisfied with anesthetic care
[2021-12-11] MEDS ORDERED: POTASSIUM CHLORIDE CRTAB 20 MEQ TABCR PO SCH (21:00)
[2021-12-11] MEDS ORDERED: INSULIN GLARGINE SOLOSTAR 100 UNITS/ML 3 ML PEN SC SCH (21:00)
[2021-12-11] MEDS: DONEPEZIL HCL 10 MG TAB PO SCH (21:53)
[2021-12-11] MEDS: PANTOprazole 40 MG TAB PO SCH (21:54)
[2021-12-11] MEDS: SIMVASTATIN 20 MG TAB PO SCH (21:54)
[2021-12-11] MEDS: INSULIN GLARGINE SOLOSTAR 100 UNITS/ML 3 ML PEN SC SCH (22:01)
[2021-12-12] MEDS: MAGNESIUM SULFATE / D5W 1 GM/100 ML BAG IV SCH ×3 (01:23→04:57)
[2021-12-12] MEDS: PIPERACILLIN/TAZOBACTAM 3.375 GM in DEXTROSE 5% 100 ML IV SCH ×3 (05:29→22:22)
[2021-12-12 06:09] LABS: Eosinophils # (auto) 0.01 K/uL (0-0.5); Eosinophils % (auto) 0.1 %; Hematocrit (blood only) 37.1 % (37-47); Hemoglobin 11.8 g/dL (12.0-16.0); Immature Granulocytes # (auto) 0.02 K/uL (0.00-0.02); Immature Granulocytes % (auto) 0.2 %; Lymphocytes # (auto) 0.98 K/uL (1.2-3.4); Lymphocytes % (auto) 10.5 %; Mean Corpuscular Hemoglobin 31.3 pg (25-34); Mean Corpuscular Hgb Conc 31.8 g/dL (32-36); Mean Corpuscular Volume 98.4 fL (80-100); Mean Platelet Volume 10.4 fL (7.4-10.4); Monocytes # (auto) 0.62 K/uL (0.11-0.59); Monocytes % (auto) 6.6 %; Neutrophils # (auto) 7.72 K/uL (1.4-6.5); Neutrophils % (auto) 82.6 %; Platelet Count 154 K/uL (130-400); RDW Standard Deviation 50.1 fL (36.4-46.3); Red Blood Count 3.77 M/uL (4.2-5.4); White Blood Count 9.35 K/uL (4.8-10.8)
[2021-12-12] MEDS: HYDROCORTISONE SOD 100 MG in SYRINGE 0 ML IV SCH ×3 (06:14→21:23)
[2021-12-12 06:43] LABS: Albumin Globulin Ratio 1.2 (0.9-2); Albumin Level 2.9 gm/dl (3.4-5.0); BUN Creatinine Ratio 41.2 (10-20); Bilirubin,Total 0.6 mg/dl (0.2-1.0); Calcium 9.7 mg/dl (8.5-10.1); Creatinine Clr Calc Pharmacy 61.9 ml/min; Est GFR (African American) 92.4 ml/min; Est GFR (Non-African American) 79.8 ml/min; Globulin 2.4 gm/dl (2.5-4.0); Magnesium 2.9 mg/dl (1.7-2.4); Phosphorus 2.8 mg/dl (2.5-4.9); Potassium 4.2 mmol/L (3.5-5.1); Total Protein 5.3 gm/dl (6.0-8.3)
[2021-12-12 06:48] LABS: C Reactive Protein 28.19 mg/dl (0-0.5)
[2021-12-12] MEDS: LACTATED RINGER'S 1,000 ML IV SCH ×3 (07:30→23:46)
[2021-12-12] MEDS: CHOLECALCIFEROL 1,000 UNITS 25 MCG TAB PO SCH (08:30)
[2021-12-12] MEDS: CYANOCOBALAMIN (B-12) 500 MCG TABLET PO SCH (08:31)
[2021-12-12] MEDS: PANTOprazole 40 MG TAB PO SCH ×2 (08:31→21:02)
[2021-12-12] MEDS: INSULIN GLARGINE SOLOSTAR 100 UNITS/ML 3 ML PEN SC SCH ×2 (08:35→21:14)
[2021-12-12] MEDS: INSULIN ASPART PER UNIT SC SCH ×4 (08:35→21:13)
--- NOTE | 2021-12-12 09:10 | Urology Progress Note ---
Date of Service December 12, 2021 Assessment & Plan (1) Sepsis: (2) Urinary tract infection: (3) Ureterovesical junction (UVJ) obstruction: Plan: 86yo F who presented with fever and AMS and was admitted with an obstructing 5mm left UVJ stone with concern for sepsis and UTI. - POD #1 s/p Cystoscopy with left ureteroscopy, ureteral dilation, stone extraction, urine aspiration, retrograde pyelogram, and stent. - Afebrile, hemodynamically stable. - Labs reviewed - Wbc 9.35 and creatinine 0.68. - UCx pending; BCx preliminary with gram negative bacilli. - Intraop left kidney aspirate culture preliminary with gram negative bacilli. - Continues on IV Zosyn. - Gloria catheter intact, draining yellow urine with sediment in tubing. Plan- - Maintain Gloria catheter for maximum drainage of urinary tract while treating infection. - Continue antibiotic therapy and tailor as culture data becomes available. - Continue supportive care. - Will arrange outpatient follow-up with our service for stone and stent management after infection has cleared. - Urology will sign-off. Please contact us with additional questions, concerns or changes in patient status. Admission and Anticipated Discharge Date Admission Date: December 11, 2021 Subjective Pt examined at bedside this AM. Asleep on arrival, awakened to name. Nurse at bedside. Drowsy but arousable. Falls back asleep when talking to her. Followed command to open eyes. No fevers overnight. Gloria catheter intact, draining yellow urine with sediment in tubing. Notes pain with palpation of lower abdomen. Review of Systems Constitutional: as per Subjective / HPI Genitourinary: as per Subjective / HPI Psychiatric: as per Subjective / HPI Physical Exam Constitutional: no acute distress Drowsy Respiratory: normal respiratory effort; no respiratory distress and no labored breathing Gastrointestinal (Abdomen): Inspection/Auscultation: abdomen normal to inspection Percussion/Palpation: + abdomen tender (Mild tenderness with palpation to lower abdomen) and abdomen soft; no guarding and abdomen not rigid Musculoskeletal: Head/Neck/Chest: normocephalic Extremities: extremities normal to inspection Skin: No visible rashes or lesions Neurologic: Asleep on arrival but arousable. Awakened briefly to verbal stimuli. Psychiatric: Orientation: alert and oriented to person Genitourinary: Gloria catheter intact Results & Data ([facility]) Vital Signs (Past 12 Hours) Vital Signs Temp Pulse Pulse Resp BP Pulse Ox 12/12/21 07:24 36.6 C 68 16 137/70 96 12/12/21 07:21 58 L 12/12/21 02:54 36.6 C 56 L 20 132/84 95 12/12/21 01:39 62 PG Care Time/CCT Total # of Minutes Spent Total Time Spent with Patient: Total time spent is greater than 50% in coordination of care (as documented) at patient's floor/unit and/or counseling patient: Coding Level of Care Code 63246 Subseq Hosp Care Lvl 2 Diagnoses Sepsis A41.9 Urinary tract infection N39.0 Ureterovesical junction (UVJ) obstruction N13.5
--- NOTE | 2021-12-12 20:32 | Hospitalist Progress Note ---
Date of Service December 12, 2021 Assessment & Plan (1) Ureterovesical junction (UVJ) obstruction: Plan: - 5mm left sided UVJ stone with hydronephrosis and hydroureter. - Source of sepsis, urology consulted, plan for cystoscopy with stent placement this afternoon. - s/p Cystoscopy with left ureteroscopy, ureteral dilation, stone extraction, urine aspiration, retrograde pyelogram, and stent. Awaiting cultures (2) Sepsis: Plan: - 2/2 obstructing left UVJ stone. - Febrile, tachycardic, and with increase in baseline confusion. - WBC 10.37, CRP 24.24, PCT 0.74. - MAP- > 65 - Lactate- 2.0 -with mild elevation in troponin-repeat ordered but likely myocardial demand ischemia in setting of sepsis - Hemodynamic resuscitation plan- 1L NSS bolus x2, continue maintenance IVF - Blood, urine cultures pending. - Zosyn IV q8h. -stress dose steroids with IV hydrocortisone 10mg IV q8h and wean down over 3 days (3) Encephalopathy: Plan: - Suspect this is 2/2 to UTI/sepsis. Mag 1.3, otherwise no electrolyte abnormalities, no hypoglycemia. (4) Acute kidney injury: Plan: - Likely secondary to UTI/obstructive stone. - Cr 1.06, up from baseline of ~.6-.7; GFR reduced. - Receiving IVF as above. - Renally dose medications, avoid nephrotoxins. - Follow renal function on AM labs. (5) Urinary tract infection: Plan: - Zosyn as above, cultures sent. (6) Hypomagnesemia: Plan: -1.3 in ED, replenished (7) Hypercalcemia: Plan: - Ca 11.1, receiving IVF as above. - Checking PTH, vit D, phosphorus-- phos mildly low at 2.3, otherwise vit D and PTH wnl. Likely 2/2 NBA and dehydration -hydrating with LR - Follow on AM labs. (8) Polymyalgia rheumatica: Plan: - Takes 20 mg of prednisone chronically. Will require stress dosing due to infection/plan for ureteral stent placement. - Hydrocortisone 100 mg IV every 8h for now. -will titrate in AM. (9) Gastroesophageal reflux: Plan: - Continue protonix 40 mg BID. (10) Type 2 diabetes mellitus: Plan: - Lantus 12 units BID at home with SSI. - Diabetic diet. (11) Hypertension: Plan: - hold home Coreg 3.125 twice daily in setting of sepsis and hypotension (12) Hyperlipidemia: Plan: - Continue simvastatin 20 mg daily. (13) Dementia: Plan: - Continue donepezil 10 mg hs. (14) Chronic pain: Plan: - Continue topical diclofenac gel, lidocaine cream, Tylenol. Plan: - Admit to PCU. - SCDs for DVT ppx. - DNR/DNI. Admission and Anticipated Discharge Date Admission Date: December 11, 2021 Subjective Patient reports feeling better. No new complaints. Review of Systems Review of Systems: All systems reviewed & are unremarkable except as noted in HPI & below Physical Exam Physical Exam: General: Patient is lying in bed.NAD. Head: Normocephalic, atraumatic ENT: PERRL, EOMI, no pharyngeal exudate, mucous membranes moist Chest: Clear to auscultation, on room air, no adventitious breath sounds Cardiac: Regular rate and rhythm, no murmur, no JVD, normal peripheral pulses, good capillary refill Abdominal: NABS x 4 quadrants, soft, TTP in left lower and upper quadrant; no rebound, guarding or tenderness Extremities: Normal inspection, no peripheral edema or erythema, calfs nontender to palpation Psych: Normal mood and affect Neuro: Strength intact bilaterally and rated 5/5, no motor deficits, speech is clear, no peripheral sensory deficits Skin: no rash or erythema Results & Data Results & Data ([facility]) Vital Signs (Past 12 Hours) Vital Signs Temp Pulse Pulse Resp BP BP Pulse Ox 12/12/21 19:24 36.7 C 82 16 114/72 95 12/12/21 18:30 60 12/12/21 15:52 36.7 C 68 18 129/78 97 12/12/21 11:32 36.4 C L 65 16 118/76 96 PG Care Time/CCT Total # of Minutes Spent Total Time Spent with Patient: Total time spent is greater than 50% in coordination of care (as documented) at patient's floor/unit and/or counseling patient: Coding Level of Care Code 49222 Subseq Hosp Care Lvl 3 Diagnoses Ureterovesical junction (UVJ) obstruction N13.5 Sepsis A41.9 Encephalopathy G93.40 Acute kidney injury N17.9 Urinary tract infection N39.0 Hypomagnesemia E83.42 Hypercalcemia E83.52 Polymyalgia rheumatica M35.3 Gastroesophageal reflux K21.9 Type 2 diabetes mellitus E11.9 Hypertension I10 Hypertension type: unspecified Hyperlipidemia E78.5 Dementia F03.90 Dementia behavioral disturbance: without behavioral disturbance Dementia type: unspecified type Chronic pain G89.29 (1) Dementia Dementia behavioral disturbance: without behavioral disturbance Dementia type: unspecified type Qualified Code(s): F03.90 - Unspecified dementia without behavioral disturbance (2) Hypertension Hypertension type: unspecified Qualified Code(s): I10 - Essential (primary) hypertension
[2021-12-12] MEDS: SIMVASTATIN 20 MG TAB PO SCH (21:02)
[2021-12-12] MEDS: DONEPEZIL HCL 10 MG TAB PO SCH (21:02)
[2021-12-13] MEDS: HYDROCORTISONE SOD 100 MG in SYRINGE 0 ML IV SCH (04:15)
[2021-12-13] MEDS: PIPERACILLIN/TAZOBACTAM 3.375 GM in DEXTROSE 5% 100 ML IV SCH (05:49)
[2021-12-13] MEDS: LACTATED RINGER'S 1,000 ML IV SCH ×2 (05:53→08:56)
--- NOTE | 2021-12-13 06:18 | Electrocardiogram Report ---
Test Reason : Blood Pressure : / mmHG Vent. Rate : 105 BPM Atrial Rate : 105 BPM P-R Int : 136 ms QRS Dur : 098 ms QT Int : 340 ms P-R-T Axes : 033 -73 066 degrees QTc Int : 449 ms Sinus tachycardia with Premature supraventricular complexes Left anterior fascicular block Nonspecific T wave abnormality Abnormal ECG When compared with ECG of 27-SEP-2021 12:10, Premature supraventricular complexes are now Present Confirmed by Andreas Amaya ([id number]) on 12/13/2021 6:18:43 AM Referred By: Confirmed By:Andreas Amaya
[2021-12-13 06:22] LABS: Hematocrit (blood only) 34.7 % (37-47); Hemoglobin 11.1 g/dL (12.0-16.0); Mean Corpuscular Volume 96.9 fL (80-100); Mean Platelet Volume 10.2 fL (7.4-10.4); Platelet Count 176 K/uL (130-400); RDW Coefficient of Variation 13.6 % (11.5-14.5); RDW Standard Deviation 48.5 fL (36.4-46.3); Red Blood Count 3.58 M/uL (4.2-5.4); White Blood Count 7.77 K/uL (4.8-10.8)
[2021-12-13 06:48] LABS: BUN Creatinine Ratio 41.2 (10-20); Calcium 9.5 mg/dl (8.5-10.1); Creatinine Clr Calc Pharmacy 49.9 ml/min; Est GFR (African American) 72.4 ml/min; Est GFR (Non-African American) 62.5 ml/min; Potassium 3.6 mmol/L (3.5-5.1)
[2021-12-13] MEDS: INSULIN ASPART PER UNIT SC SCH ×4 (08:37→21:50)
[2021-12-13] MEDS: INSULIN GLARGINE SOLOSTAR 100 UNITS/ML 3 ML PEN SC SCH (08:37)
[2021-12-13] MEDS: PANTOprazole 40 MG TAB PO SCH ×2 (08:52→21:22)
[2021-12-13] MEDS: CYANOCOBALAMIN (B-12) 500 MCG TABLET PO SCH (08:53)
[2021-12-13] MEDS: CHOLECALCIFEROL 1,000 UNITS 25 MCG TAB PO SCH (08:53)
[2021-12-13] MEDS ORDERED: PHARMACY GLYCEMIC MGMT CONSULT PRN (10:03)
[2021-12-13] MEDS: FLUCONAZOLE 100 MG TAB PO SCH (11:43)
--- NOTE | 2021-12-13 12:51 | Pharmacy Report ---
Pharmacy Glycemic Short Note 2 - Date of Service December 13, 2021 - Glycemic Short BSG Results (Last 24 hours): 12/12/21 12/12/21 12/12/21 17:39 17:40 20:33 Glucose POC Glucose 272 H 193 H 202 H 12/13/21 12/13/21 12/13/21 05:36 08:14 12:01 Glucose 199 H POC Glucose 222 H 186 H OUTPATIENT ANTIDIABETIC REGIMEN: * Lantus 12 units BID * Novolog per scale * Home dose of prednisone 20 mg daily ASSESSMENT: * Ms Castañeda is an 86 y/o F with a PMH of IDDM who presents with bacteremia. Patient was on hydrocortisone 100 mg IV q8 hours but this has been subsequently d/c'ed after this morning's dose. * Patient resumed on home prednisone 20 mg daily starting 12/14. * BSGs yesterday were [phone] mg/dL (patient on hydrocortisone 100 mg IV q8) and today are 222-186 mg/dL. Hydrocortisone d/c'ed. * Will tighten Novolog significantly to weight-based stress of 3 to relieve steroid induced hyperglycemia. * Decrease Lantus to home dose since hydrocortisone d/c'ed. PLAN FOR INPATIENT GLYCEMIC CONTROL: * Hold outpatient oral diabetes medications * Basal insulin * Lantus 12 units SQ BID * Bolus insulin * NovoLog per scale ACHS or Q6hrs while NPO * Goal Range: Low 110 mg/dL - High 140 mg/dL * Correction Factor: 20 mg/dL/unit * Nutritional / Prandial insulin per carb ratio of 1 unit per 7 grams CHO consumed
[2021-12-13] MEDS: SULFAMETHOXAZOLE/TRIMETHOPRIM DS 800/160MG TAB PO SCH ×2 (13:09→23:34)
[2021-12-13] MEDS ORDERED: INSULIN GLARGINE SOLOSTAR 100 UNITS/ML 3 ML PEN SC SCH (21:00)
[2021-12-13] MEDS: SIMVASTATIN 20 MG TAB PO SCH (21:22)
[2021-12-13] MEDS: DONEPEZIL HCL 10 MG TAB PO SCH (21:22)
--- NOTE | 2021-12-13 22:45 | Hospitalist Progress Note ---
Date of Service December 13, 2021 Assessment & Plan (1) Ureterovesical junction (UVJ) obstruction: Plan: - 5mm left sided UVJ stone with hydronephrosis and hydroureter. - Source of sepsis, urology consulted, plan for cystoscopy with stent placement this afternoon. - s/p Cystoscopy with left ureteroscopy, ureteral dilation, stone extraction, urine aspiration, retrograde pyelogram, and stent. -Lopez sensitive E. Coli and Priscilla noted on cultures: will order fluoconazole for 2 weeks and Bactrim 10-14 days. (2) Sepsis: Plan: - 2/2 obstructing left UVJ stone. - Febrile, tachycardic, and with increase in baseline confusion. - WBC 10.37, CRP 24.24, PCT 0.74. - MAP- > 65 - Lactate- 2.0 -with mild elevation in troponin-repeat ordered but likely myocardial demand ischemia in setting of sepsis - Hemodynamic resuscitation plan- 1L NSS bolus x2, continue maintenance IVF - Blood, urine cultures pending. - Zosyn IV q8h. -stress dose steroids with IV hydrocortisone 10mg IV q8h and wean down over 3 days (3) Encephalopathy: Plan: Metabolic encephalopathy in the setting of sepsis, UTI, and UVJ stone - Suspect this is 2/2 to UTI/sepsis. Mag 1.3, otherwise no electrolyte abnormalities, no hypoglycemia. (4) Acute kidney injury: Plan: - Likely secondary to UTI/obstructive stone. - Cr 1.06, up from baseline of ~.6-.7; GFR reduced. - Receiving IVF as above. - Renally dose medications, avoid nephrotoxins. - creatinine is back to baseline. (5) Urinary tract infection: Plan: - Zosyn as above, cultures sent. (6) Hypomagnesemia: Plan: -1.3 in ED, replenished (7) Hypercalcemia: Plan: - Ca 11.1, resolved with IVF as above. - Checking PTH, vit D, phosphorus-- phos mildly low at 2.3, otherwise vit D and PTH wnl. Likely 2/2 NBA and dehydration -holding IVF . (8) Polymyalgia rheumatica: Plan: - Takes 20 mg of prednisone chronically. Will require stress dosing due to infection/plan for ureteral stent placement. - Hydrocortisone 100 mg IV every 8h for now. -will titrate in AM. (9) Gastroesophageal reflux: Plan: - Continue protonix 40 mg BID. (10) Type 2 diabetes mellitus: Plan: - Lantus 12 units BID at home with SSI. - Diabetic diet. (11) Hypertension: Plan: - hold home Coreg 3.125 twice daily in setting of sepsis and hypotension (12) Hyperlipidemia: Plan: - Continue simvastatin 20 mg daily. (13) Dementia: Plan: - Continue donepezil 10 mg hs. (14) Chronic pain: Plan: - Continue topical diclofenac gel, lidocaine cream, Tylenol. Plan: - SCDs for DVT ppx. - DNR/DNI. Admission and Anticipated Discharge Date Admission Date: December 11, 2021 Subjective 86 yo female reports no new symptoms Review of Systems Review of Systems: All systems reviewed & are unremarkable except as noted in HPI & below Physical Exam Physical Exam: General: Patient is lying in bed.NAD. Head: Normocephalic, atraumatic ENT: PERRL, EOMI, no pharyngeal exudate, mucous membranes moist Chest: Clear to auscultation, on room air, no adventitious breath sounds Cardiac: Regular rate and rhythm, no murmur, no JVD, normal peripheral pulses, good capillary refill Abdominal: NABS x 4 quadrants, soft, TTP in left lower and upper quadrant; no rebound, guarding or tenderness Extremities: Normal inspection, no peripheral edema or erythema, calfs nontender to palpation Psych: Normal mood and affect Neuro: Strength intact bilaterally and rated 5/5, no motor deficits, speech is clear, no peripheral sensory deficits, [id number] Skin: no rash or erythema Results & Data Results & Data ([facility]) Vital Signs (Past 12 Hours) Vital Signs Temp Pulse Resp BP Pulse Ox 12/13/21 16:26 37.0 C 64 18 136/75 93 PG Care Time/CCT Total # of Minutes Spent Total Time Spent with Patient: Total time spent is greater than 50% in coordination of care (as documented) at patient's floor/unit and/or counseling patient: Coding Level of Care Code 58365 Subseq Hosp Care Lvl 3 Diagnoses Ureterovesical junction (UVJ) obstruction N13.5 Sepsis A41.9 Encephalopathy G93.40 Acute kidney injury N17.9 Urinary tract infection N39.0 Hypomagnesemia E83.42 Hypercalcemia E83.52 Polymyalgia rheumatica M35.3 Gastroesophageal reflux K21.9 Type 2 diabetes mellitus E11.9 Hypertension I10 Hypertension type: unspecified Hyperlipidemia E78.5 Dementia F03.90 Dementia behavioral disturbance: without behavioral disturbance Dementia type: unspecified type Chronic pain G89.29 (1) Dementia Dementia behavioral disturbance: without behavioral disturbance Dementia type: unspecified type Qualified Code(s): F03.90 - Unspecified dementia without behavioral disturbance (2) Hypertension Hypertension type: unspecified Qualified Code(s): I10 - Essential (primary) hypertension
[2021-12-14] MEDS: FLUCONAZOLE 100 MG TAB PO SCH (08:28)
[2021-12-14] MEDS: CYANOCOBALAMIN (B-12) 500 MCG TABLET PO SCH (08:28)
[2021-12-14] MEDS: CHOLECALCIFEROL 1,000 UNITS 25 MCG TAB PO SCH (08:28)
[2021-12-14] MEDS: PANTOprazole 40 MG TAB PO SCH ×2 (08:29→19:54)
[2021-12-14] MEDS: predniSONE 20 MG TAB PO SCH (08:29)
[2021-12-14] MEDS: SULFAMETHOXAZOLE/TRIMETHOPRIM DS 800/160MG TAB PO SCH ×2 (08:29→19:55)
[2021-12-14] MEDS: INSULIN ASPART PER UNIT SC SCH ×4 (09:37→21:22)
--- NOTE | 2021-12-14 14:28 | Pharmacy Report ---
Pharmacy Glycemic Short Note 2 - Date of Service December 14, 2021 - Glycemic Short BSG Results (Last 24 hours): 12/13/21 12/13/21 12/13/21 17:22 17:42 18:48 POC Glucose 69 L* 71 110 H 12/13/21 12/14/21 12/14/21 21:05 07:58 12:03 POC Glucose 89 81 94 OUTPATIENT ANTIDIABETIC REGIMEN: * Lantus 12 units BID * Novolog per scale * Home dose of prednisone 20 mg daily ASSESSMENT: 12/14/21 * Patient's BSGs yesterday were [phone] and today are 81-94 mg/dL. Patient transitioned to home dose of prednisone 20 mg daily. * Per chart review, patient's fasting BSGs tend to be lower (<120 mg/dL). During the past two admissions, she tolerates 5-8 units BID. Will start at the lower end of 10 units/day and schedule that for tonight. * Loosen Novolog to weight-based stress of 2. BACKGROUND * Ms Castañeda is an 86 y/o F with a PMH of IDDM who presents with bacteremia. Patient was on hydrocortisone 100 mg IV q8 hours but this has been subsequently d/c'ed after this morning's dose. * Patient resumed on home prednisone 20 mg daily starting 12/14. * BSGs yesterday were [phone] mg/dL (patient on hydrocortisone 100 mg IV q8) and today are 222-186 mg/dL. Hydrocortisone d/c'ed. * Will tighten Novolog significantly to weight-based stress of 3 to relieve steroid induced hyperglycemia. * Decrease Lantus to home dose since hydrocortisone d/c'ed. PLAN FOR INPATIENT GLYCEMIC CONTROL: * Hold outpatient oral diabetes medications * Basal insulin * Lantus 10 units SQ HS * Bolus insulin * NovoLog per scale ACHS or Q6hrs while NPO * Goal Range: Low 110 mg/dL - High 140 mg/dL * Correction Factor: 30 mg/dL/unit * Nutritional / Prandial insulin per carb ratio of 1 unit per 10 grams CHO consumed
--- NOTE | 2021-12-14 19:20 | Hospitalist Progress Note ---
Date of Service December 14, 2021 Assessment & Plan (1) Ureterovesical junction (UVJ) obstruction: Plan: - 5mm left sided UVJ stone with hydronephrosis and hydroureter. - Source of sepsis, urology consulted, plan for cystoscopy with stent placement this afternoon. - s/p Cystoscopy with left ureteroscopy, ureteral dilation, stone extraction, urine aspiration, retrograde pyelogram, and stent. - Lopez sensitive E. Coli and Priscilla noted on cultures: Continue fluconazole for 2 weeks and Bactrim 14 days (reduced source control due to need for hodge catheter). (2) Sepsis: Plan: - 2/2 obstructing left UVJ stone with E. coli bacteremia from UTI - Febrile, tachycardic, and with increase in baseline confusion. - WBC 10.37, CRP 24.24, PCT 0.74 on admission - MAP- > 65 - Lactate- 2.0 - Blood culture - pansensitive E. coli - Urine culture with E. coli, priscilla and lactobacillus - now finished stress dose steroids (3) Encephalopathy: Plan: Metabolic encephalopathy in the setting of sepsis, UTI, and UVJ stone - Suspect this is 2/2 to UTI/sepsis. Now resolved (4) Acute kidney injury: Plan: Now resolved seocndary to sepsis and obstructive uropathy (5) Urinary tract infection: Plan: continue on fluconazole and Bactrim as above for 14 days (6) Hypomagnesemia: Plan: Resolved (7) Hypercalcemia: Plan: Resolved with IV fluids (8) Polymyalgia rheumatica: Plan: - Continue her chronic prednisone 20mg PO daily (9) Gastroesophageal reflux: Plan: - Continue protonix 40 mg BID. (10) Type 2 diabetes mellitus: Plan: HbA1C 7.8 in Aug Pharmacy consulted for glycemic control during inpatient stay (11) Hypertension: Plan: Now mostly sepsis resolved and more stable will restart her usual antihypertensives with carvedilol 3.125mg PO BID (12) Hyperlipidemia: Plan: - Continue simvastatin 20 mg daily. (13) Dementia: Plan: - Continue donepezil 10 mg hs. (14) Chronic pain: Plan: - Continue topical diclofenac gel, lidocaine cream, Tylenol. Plan: VTE Prophylaxis - recent GI bleed in September, will hold off starting anticoagulation unless she remains in hospital much longer, continue SCDs Code status - DNR/DNI. Disposition - medically stable for discharge pending rehab placement Admission and Anticipated Discharge Date Admission Date: December 11, 2021 Subjective No new concerns of questions. Awaiting placement at this time. Review of Systems Review of Systems: All systems reviewed & are unremarkable except as noted in Subjective Physical Exam Constitutional: WD/WN, vitals as above Respiratory: normal respiratory effort, lungs clear to auscultation Cardiovascular: RRR, no murmur, no edema Genitourinary: no CVA tenderness Results & Data Results & Data ([facility]) Vital Signs (Past 12 Hours) Vital Signs Temp Pulse Resp BP Pulse Ox 12/14/21 16:00 36.8 C 69 18 130/84 94 12/14/21 07:30 36.7 C 65 20 117/72 95 PG Care Time/CCT Total # of Minutes Spent Total Time Spent with Patient: Total time spent is greater than 50% in coordination of care (as documented) at patient's floor/unit and/or counseling patient: Coding Level of Care Code 48797 Subseq Hosp Care Lvl 1 Diagnoses Ureterovesical junction (UVJ) obstruction N13.5 Sepsis A41.9 Encephalopathy G93.40 Acute kidney injury N17.9 Urinary tract infection N39.0 Hypomagnesemia E83.42 Hypercalcemia E83.52 Polymyalgia rheumatica M35.3 Gastroesophageal reflux K21.9 Type 2 diabetes mellitus E11.9 Hypertension I10 Hypertension type: unspecified Hyperlipidemia E78.5 Dementia F03.90 Dementia behavioral disturbance: without behavioral disturbance Dementia type: unspecified type Chronic pain G89.29 (1) Dementia Dementia behavioral disturbance: without behavioral disturbance Dementia type: unspecified type Qualified Code(s): F03.90 - Unspecified dementia without behavioral disturbance (2) Hypertension Hypertension type: unspecified Qualified Code(s): I10 - Essential (primary) hypertension
[2021-12-14] MEDS: DONEPEZIL HCL 10 MG TAB PO SCH (19:53)
[2021-12-14] MEDS: SIMVASTATIN 20 MG TAB PO SCH (19:55)
[2021-12-14] MEDS: INSULIN GLARGINE SOLOSTAR 100 UNITS/ML 3 ML PEN SC SCH (21:22)
[2021-12-14] MEDS: carvediloL 3.125 MG TAB PO SCH (21:25)
[2021-12-15 08:15] LABS: Creatinine Clr Calc Pharmacy 61.4 ml/min; Est GFR (Non-African American) 79.4 ml/min
[2021-12-15] MEDS: CHOLECALCIFEROL 1,000 UNITS 25 MCG TAB PO SCH (08:42)
[2021-12-15] MEDS: CYANOCOBALAMIN (B-12) 500 MCG TABLET PO SCH (08:42)
[2021-12-15] MEDS: FLUCONAZOLE 100 MG TAB PO SCH (08:43)
[2021-12-15] MEDS: predniSONE 20 MG TAB PO SCH (08:43)
[2021-12-15] MEDS: PANTOprazole 40 MG TAB PO SCH ×2 (08:43→21:01)
[2021-12-15] MEDS: SULFAMETHOXAZOLE/TRIMETHOPRIM DS 800/160MG TAB PO SCH ×2 (08:44→21:00)
[2021-12-15] MEDS: carvediloL 3.125 MG TAB PO SCH ×2 (08:45→21:00)
[2021-12-15] MEDS ORDERED: FLUCONAZOLE 100 MG TAB PO ONE (09:00)
[2021-12-15] MEDS: INSULIN ASPART PER UNIT SC SCH ×4 (09:25→21:01)
--- NOTE | 2021-12-15 11:32 | Pharmacy Report ---
Pharmacy Glycemic Short Note 2 - Date of Service December 15, 2021 - Glycemic Short BSG Results (Last 24 hours): 12/14/21 12/14/21 12/14/21 12:03 16:58 20:41 POC Glucose 94 137 H 173 H 12/15/21 08:21 POC Glucose 98 OUTPATIENT ANTIDIABETIC REGIMEN: * Lantus 12 units BID * Novolog per scale * Home dose of prednisone 20 mg daily ASSESSMENT: 12/15/21 * Patient's BSGs yesterday were [phone] mg/dL. Patient continues on home dose of prednisone 20 mg daily. * Patient received 13 units of insulin yesterday (10 units of basal and 3 units of correctional). * Continue Lantus 10 units daily as fasting today is 98 mg/dL so improving. * Continue Novolog. 12/14/21 * Patient's BSGs yesterday were [phone] and today are 81-94 mg/dL. Patient transitioned to home dose of prednisone 20 mg daily. * Per chart review, patient's fasting BSGs tend to be lower (<120 mg/dL). During the past two admissions, she tolerates 5-8 units BID. Will start at the lower end of 10 units/day and schedule that for tonight. * Loosen Novolog to weight-based stress of 2. BACKGROUND * Ms Castañeda is an 86 y/o F with a PMH of IDDM who presents with bacteremia. Patient was on hydrocortisone 100 mg IV q8 hours but this has been subsequently d/c'ed after this morning's dose. * Patient resumed on home prednisone 20 mg daily starting 12/14. * BSGs yesterday were [phone] mg/dL (patient on hydrocortisone 100 mg IV q8) and today are 222-186 mg/dL. Hydrocortisone d/c'ed. * Will tighten Novolog significantly to weight-based stress of 3 to relieve steroid induced hyperglycemia. * Decrease Lantus to home dose since hydrocortisone d/c'ed. PLAN FOR INPATIENT GLYCEMIC CONTROL: * Hold outpatient oral diabetes medications * Basal insulin * Lantus 10 units SQ HS * Bolus insulin * NovoLog per scale ACHS or Q6hrs while NPO * Goal Range: Low 100 mg/dL - High 140 mg/dL * Correction Factor: 30 mg/dL/unit * Nutritional / Prandial insulin per carb ratio of 1 unit per 9 grams CHO consumed
--- NOTE | 2021-12-15 18:37 | Hospitalist Progress Note ---
Date of Service December 15, 2021 Assessment & Plan (1) Ureterovesical junction (UVJ) obstruction: Plan: - 5mm left sided UVJ stone with hydronephrosis and hydroureter. - Source of sepsis, urology consulted, plan for cystoscopy with stent placement this afternoon. - s/p Cystoscopy with left ureteroscopy, ureteral dilation, stone extraction, urine aspiration, retrograde pyelogram, and stent. - Lopez sensitive E. Coli and Priscilla noted on cultures: Continue fluconazole for 2 weeks and Bactrim 14 days (reduced source control due to need for hodge catheter). (2) Sepsis: Plan: - 2/2 obstructing left UVJ stone with E. coli bacteremia from UTI - Febrile, tachycardic, and with increase in baseline confusion. - WBC 10.37, CRP 24.24, PCT 0.74 on admission - MAP- > 65 - Lactate- 2.0 - Blood culture - pansensitive E. coli - Urine culture with E. coli, priscilla and lactobacillus - now finished stress dose steroids (3) Encephalopathy: Plan: Metabolic encephalopathy in the setting of sepsis, UTI, and UVJ stone - Suspect this is 2/2 to UTI/sepsis. Now resolved (4) Acute kidney injury: Plan: Now resolved seocndary to sepsis and obstructive uropathy (5) Urinary tract infection: Plan: continue on fluconazole and Bactrim as above for 14 days (6) Hypomagnesemia: Plan: Resolved (7) Hypercalcemia: Plan: Resolved with IV fluids (8) Polymyalgia rheumatica: Plan: - Continue her chronic prednisone 20mg PO daily (9) Gastroesophageal reflux: Plan: - Continue protonix 40 mg BID. (10) Type 2 diabetes mellitus: Plan: HbA1C 7.8 in Aug Pharmacy consulted for glycemic control during inpatient stay (11) Hypertension: Plan: Now mostly sepsis resolved and more stable will restart her usual antihypertensives with carvedilol 3.125mg PO BID (12) Hyperlipidemia: Plan: - Continue simvastatin 20 mg daily. (13) Dementia: Plan: - Continue donepezil 10 mg hs. (14) Chronic pain: Plan: - Continue topical diclofenac gel, lidocaine cream, Tylenol. (15) Dental caries: Plan: Follow up with dentist on discharge Plan: VTE Prophylaxis - recent GI bleed in September, no chemical prophylaxis Code status - DNR/DNI. Disposition - medically stable for discharge pending rehab placement Admission and Anticipated Discharge Date Admission Date: December 11, 2021 Subjective Right upper molar pain on eating only. Multiple dental caries - patient aware she needs to see a dentist. Awaiting placement at this time. Review of Systems Review of Systems: All systems reviewed & are unremarkable except as noted in Subjective Physical Exam Constitutional: WD/WN, vitals as above ENMT: Mouth: + dental caries (bilaterally); no gingival abnormality Respiratory: normal respiratory effort, lungs clear to auscultation Cardiovascular: RRR, no murmur, no edema Genitourinary: no CVA tenderness Results & Data Results & Data ([facility]) Vital Signs (Past 12 Hours) Vital Signs Temp Pulse Resp BP Pulse Ox 12/15/21 14:42 36.7 C 64 17 149/75 H 95 12/15/21 08:45 70 133/78 12/15/21 07:22 36.7 C 66 17 133/78 97 PG Care Time/CCT Total # of Minutes Spent Total Time Spent with Patient: Total time spent is greater than 50% in coordination of care (as documented) at patient's floor/unit and/or counseling patient: Coding Level of Care Code 86761 Subseq Hosp Care Lvl 1 Diagnoses Ureterovesical junction (UVJ) obstruction N13.5 Sepsis A41.9 Encephalopathy G93.40 Acute kidney injury N17.9 Urinary tract infection N39.0 Hypomagnesemia E83.42 Hypercalcemia E83.52 Polymyalgia rheumatica M35.3 Gastroesophageal reflux K21.9 Type 2 diabetes mellitus E11.9 Hypertension I10 Hypertension type: unspecified Hyperlipidemia E78.5 Dementia F03.90 Dementia behavioral disturbance: without behavioral disturbance Dementia type: unspecified type Chronic pain G89.29 Dental caries K02.9 (1) Dementia Dementia behavioral disturbance: without behavioral disturbance Dementia type: unspecified type Qualified Code(s): F03.90 - Unspecified dementia without behavioral disturbance (2) Hypertension Hypertension type: unspecified Qualified Code(s): I10 - Essential (primary) hypertension
[2021-12-15] MEDS: DONEPEZIL HCL 10 MG TAB PO SCH (21:00)
[2021-12-15] MEDS: SIMVASTATIN 20 MG TAB PO SCH (21:00)
[2021-12-15] MEDS: INSULIN GLARGINE SOLOSTAR 100 UNITS/ML 3 ML PEN SC SCH (21:01)
--- NOTE | 2021-12-16 06:18 | Electrocardiogram Report ---
Test Reason : Blood Pressure : / mmHG Vent. Rate : 062 BPM Atrial Rate : 062 BPM P-R Int : 146 ms QRS Dur : 108 ms QT Int : 438 ms P-R-T Axes : 030 -55 013 degrees QTc Int : 444 ms Sinus rhythm with Premature supraventricular complexes Left anterior fascicular block T wave abnormality, consider anterior ischemia Abnormal ECG When compared with ECG of 11-DEC-2021 08:09, Vent. rate has decreased BY 43 BPM Nonspecific T wave abnormality now evident in Inferior leads T wave inversion now evident in Anterior leads Confirmed by Andreas Amaya ([id number]) on 12/16/2021 6:18:25 AM Referred By: REFERRED SELF Confirmed By:Andreas Amaya
[2021-12-16] MEDS: SULFAMETHOXAZOLE/TRIMETHOPRIM DS 800/160MG TAB PO SCH ×2 (08:11→20:49)
[2021-12-16] MEDS: CYANOCOBALAMIN (B-12) 500 MCG TABLET PO SCH (08:11)
[2021-12-16] MEDS: predniSONE 20 MG TAB PO SCH (08:11)
[2021-12-16] MEDS: FLUCONAZOLE 100 MG TAB PO SCH (08:11)
[2021-12-16] MEDS: carvediloL 3.125 MG TAB PO SCH ×2 (08:11→20:48)
[2021-12-16] MEDS: CHOLECALCIFEROL 1,000 UNITS 25 MCG TAB PO SCH (08:11)
[2021-12-16] MEDS: PANTOprazole 40 MG TAB PO SCH ×2 (08:11→20:49)
[2021-12-16] MEDS: INSULIN ASPART PER UNIT SC SCH ×4 (08:17→20:50)
--- NOTE | 2021-12-16 12:34 | Pharmacy Report ---
Pharmacy Glycemic Short Note 2 - Date of Service December 16, 2021 - Glycemic Short BSG Results (Last 24 hours): 12/15/21 12/15/21 12/16/21 16:39 20:39 08:11 POC Glucose 158 H 190 H 98 12/16/21 12:22 POC Glucose 88 OUTPATIENT ANTIDIABETIC REGIMEN: * Lantus 12 units BID * Novolog per scale * Home dose of prednisone 20 mg daily ASSESSMENT: 12/16/21 * Fasting 98mg/dl, 88mg/dl prior to lunch, decrease Lantus starting tonight to prevent hypoglycemia * Loosen CF/CR for now to prevent hypoglycemia, may need to tighten back tomorrow after reduced basal received * Change bottom of goal range to 110mg/dl (from 100mg/dl) 12/15/21 * Patient's BSGs yesterday were [phone] mg/dL. Patient continues on home dose of prednisone 20 mg daily. * Patient received 13 units of insulin yesterday (10 units of basal and 3 units of correctional). * Continue Lantus 10 units daily as fasting today is 98 mg/dL so improving. * Continue Novolog. 12/14/21 * Patient's BSGs yesterday were [phone] and today are 81-94 mg/dL. Patient transitioned to home dose of prednisone 20 mg daily. * Per chart review, patient's fasting BSGs tend to be lower (<120 mg/dL). During the past two admissions, she tolerates 5-8 units BID. Will start at the lower end of 10 units/day and schedule that for tonight. * Loosen Novolog to weight-based stress of 2. BACKGROUND * Ms Castañeda is an 86 y/o F with a PMH of IDDM who presents with bacteremia. Patient was on hydrocortisone 100 mg IV q8 hours but this has been subsequently d/c'ed after this morning's dose. * Patient resumed on home prednisone 20 mg daily starting 12/14. * BSGs yesterday were [phone] mg/dL (patient on hydrocortisone 100 mg IV q8) and today are 222-186 mg/dL. Hydrocortisone d/c'ed. * Will tighten Novolog significantly to weight-based stress of 3 to relieve steroid induced hyperglycemia. * Decrease Lantus to home dose since hydrocortisone d/c'ed. PLAN FOR INPATIENT GLYCEMIC CONTROL: * Basal insulin * Lantus 8 units SQ HS * Bolus insulin * NovoLog per scale ACHS or Q6hrs while NPO * Goal Range: Low 110 mg/dL - High 140 mg/dL * Correction Factor: 40 mg/dL/unit * Nutritional / Prandial insulin per carb ratio of 1 unit per 15 grams CHO consumed
[2021-12-16 16:42] LABS: Component 2 DNR; Source URETER STONE
--- NOTE | 2021-12-16 19:32 | Hospitalist Progress Note ---
Date of Service December 16, 2021 Assessment & Plan (1) Ureterovesical junction (UVJ) obstruction: Plan: - 5mm left sided UVJ stone with hydronephrosis and hydroureter. - Source of sepsis, urology consulted, plan for cystoscopy with stent placement this afternoon. - s/p Cystoscopy with left ureteroscopy, ureteral dilation, stone extraction, urine aspiration, retrograde pyelogram, and stent. - Lopez sensitive E. Coli and Priscilla noted on cultures: Continue fluconazole for 2 weeks and Bactrim 14 days (reduced source control due to need for hodge catheter). Last day December 24. (2) Sepsis: Plan: - 2/2 obstructing left UVJ stone with E. coli bacteremia from UTI - Febrile, tachycardic, and with increase in baseline confusion. - WBC 10.37, CRP 24.24, PCT 0.74 on admission - MAP- > 65 - Lactate- 2.0 - Blood culture - pansensitive E. coli - Urine culture with E. coli, priscilla and lactobacillus - now finished stress dose steroids (3) Encephalopathy: Plan: Metabolic encephalopathy in the setting of sepsis, UTI, and UVJ stone - Suspect this is 2/2 to UTI/sepsis. Now resolved (4) Acute kidney injury: Plan: Now resolved seocndary to sepsis and obstructive uropathy (5) Urinary tract infection: Plan: continue on fluconazole and Bactrim as above for 14 days (6) Hypomagnesemia: Plan: Resolved (7) Hypercalcemia: Plan: Resolved with IV fluids (8) Polymyalgia rheumatica: Plan: - Continue her chronic prednisone 20mg PO daily (9) Gastroesophageal reflux: Plan: - Continue protonix 40 mg BID. (10) Type 2 diabetes mellitus: Plan: HbA1C 7.8 in Aug Pharmacy consulted for glycemic control during inpatient stay (11) Hypertension: Plan: Now mostly sepsis resolved and more stable will restart her usual antihypertensives with carvedilol 3.125mg PO BID (12) Hyperlipidemia: Plan: - Continue simvastatin 20 mg daily. (13) Dementia: Plan: - Continue donepezil 10 mg hs. (14) Chronic pain: Plan: - Continue topical diclofenac gel, lidocaine cream, Tylenol. (15) Dental caries: Plan: Follow up with dentist on discharge Plan: VTE Prophylaxis - recent GI bleed in September, no chemical prophylaxis Code status - DNR/DNI. Disposition - medically stable for discharge pending rehab placement Admission and Anticipated Discharge Date Admission Date: December 11, 2021 Subjective No acute questions or concerns. Awaiting placement at this time. Review of Systems Review of Systems: All systems reviewed & are unremarkable except as noted in Subjective Physical Exam Constitutional: WD/WN, vitals as above Respiratory: normal respiratory effort, lungs clear to auscultation Cardiovascular: RRR, no murmur, no edema Results & Data Results & [facility] ([facility]) Vital Signs (Past 12 Hours) Vital Signs Temp Pulse Resp BP Pulse Ox 12/16/21 08:06 36.5 C 61 16 156/80 H 92 PG Care Time/CCT Total # of Minutes Spent Total Time Spent with Patient: Total time spent is greater than 50% in coordination of care (as documented) at patient's floor/unit and/or counseling patient: Coding Level of Care Code 47658 Subseq Hosp Care Lvl 1 Diagnoses Ureterovesical junction (UVJ) obstruction N13.5 Sepsis A41.9 Encephalopathy G93.40 Acute kidney injury N17.9 Urinary tract infection N39.0 Hypomagnesemia E83.42 Hypercalcemia E83.52 Polymyalgia rheumatica M35.3 Gastroesophageal reflux K21.9 Type 2 diabetes mellitus E11.9 Hypertension I10 Hypertension type: unspecified Hyperlipidemia E78.5 Dementia F03.90 Dementia type: unspecified type Dementia behavioral disturbance: without behavioral disturbance Chronic pain G89.29 Dental caries K02.9 (1) Hypertension Hypertension type: unspecified Qualified Code(s): I10 - Essential (primary) hypertension (2) Dementia Dementia type: unspecified type Dementia behavioral disturbance: without behavioral disturbance Qualified Code(s): F03.90 - Unspecified dementia without behavioral disturbance
[2021-12-16] MEDS: DONEPEZIL HCL 10 MG TAB PO SCH (20:49)
[2021-12-16] MEDS: SIMVASTATIN 20 MG TAB PO SCH (20:49)
[2021-12-16] MEDS: INSULIN GLARGINE SOLOSTAR 100 UNITS/ML 3 ML PEN SC SCH (20:51)
[2021-12-17 06:24] LABS: Creatinine Clr Calc Pharmacy 61.4 ml/min; Est GFR (Non-African American) 79.4 ml/min
[2021-12-17] MEDS: carvediloL 3.125 MG TAB PO SCH ×2 (07:53→20:02)
[2021-12-17] MEDS: FLUCONAZOLE 100 MG TAB PO SCH (07:55)
[2021-12-17] MEDS: CYANOCOBALAMIN (B-12) 500 MCG TABLET PO SCH (07:55)
[2021-12-17] MEDS: PANTOprazole 40 MG TAB PO SCH ×2 (07:55→20:02)
[2021-12-17] MEDS: predniSONE 20 MG TAB PO SCH (07:55)
[2021-12-17] MEDS: CHOLECALCIFEROL 1,000 UNITS 25 MCG TAB PO SCH (07:55)
[2021-12-17] MEDS: SULFAMETHOXAZOLE/TRIMETHOPRIM DS 800/160MG TAB PO SCH ×2 (07:55→20:02)
[2021-12-17] MEDS: INSULIN ASPART PER UNIT SC SCH ×4 (09:05→20:58)
--- NOTE | 2021-12-17 10:44 | Hospitalist Progress Note ---
Date of Service December 17, 2021 Assessment & Plan (1) Ureterovesical junction (UVJ) obstruction: Plan: - 5mm left sided UVJ stone with hydronephrosis and hydroureter. - Source of sepsis, urology consulted, plan for cystoscopy with stent placement this afternoon. - s/p Cystoscopy with left ureteroscopy, ureteral dilation, stone extraction, urine aspiration, retrograde pyelogram, and stent. - Lopez sensitive E. Coli and Priscilla noted on cultures: Continue fluconazole for 2 weeks and Bactrim 14 days (reduced source control due to need for hodge catheter). Last day December 24. (2) Sepsis: Plan: - 2/2 obstructing left UVJ stone with E. coli bacteremia from UTI - Febrile, tachycardic, and with increase in baseline confusion. - WBC 10.37, CRP 24.24, PCT 0.74 on admission - MAP- > 65 - Lactate- 2.0 - Blood culture - pansensitive E. coli - Urine culture with E. coli, priscilla and lactobacillus - now finished stress dose steroids (3) Joint pain: Plan: Suspect related to how she slept last night as all on the left side of her body. XR shoulder, knee and hip without acute change Consider CT of left hip if still having significant groin pain tomorrow. Venous doppler negative for DVT (4) Encephalopathy: Plan: Metabolic encephalopathy in the setting of sepsis, UTI, and UVJ stone - Suspect this is 2/2 to UTI/sepsis. Now resolved (5) Acute kidney injury: Plan: Now resolved seocndary to sepsis and obstructive uropathy (6) Urinary tract infection: Plan: continue on fluconazole and Bactrim as above for 14 days (7) Hypomagnesemia: Plan: Resolved (8) Hypercalcemia: Plan: Resolved with IV fluids (9) Polymyalgia rheumatica: Plan: - Continue her chronic prednisone 20mg PO daily Given significant pain will also repeat ESR to make sure this is not her PMR however pain appears more localized to her joints therefore doubt this is the case. (10) Gastroesophageal reflux: Plan: - Continue protonix 40 mg BID. (11) Type 2 diabetes mellitus: Plan: HbA1C 7.8 in Aug Pharmacy consulted for glycemic control during inpatient stay (12) Hypertension: Plan: Continue carvedilol 3.125mg PO BID (13) Hyperlipidemia: Plan: - Continue simvastatin 20 mg daily. (14) Dementia: Plan: - Continue donepezil 10 mg hs. (15) Chronic pain: Plan: - Continue topical diclofenac gel, lidocaine cream, Tylenol. (16) Dental caries: Plan: Follow up with dentist on discharge Plan: VTE Prophylaxis - recent GI bleed in September, no chemical prophylaxis Code status - DNR/DNI. Disposition - medically stable for discharge pending rehab placement Admission and Anticipated Discharge Date Admission Date: December 11, 2021 Subjective Patient with multiple complaints today mainly with generalized pain but especially in her left groin. Additionally having pain in her left shoulder and knee. She is unclear whether she slept poorly on these last night but she reports being currently twisted in bed is causing some of her pain. Additionally having a lot of pain in both calf muscles - has not been on anticoagulation due to recent large GI bleed. Review of Systems Review of Systems: All systems reviewed & are unremarkable except as noted in Subjective Physical Exam Constitutional: WD/WN, vitals as above Respiratory: normal respiratory effort, lungs clear to auscultation Cardiovascular: RRR, no murmur, no edema Gastrointestinal (Abdomen): normal bowel sounds, soft, nontender, no hepatosplenomegaly Musculoskeletal: Pain on all movements of left shoulder Left knee - no joint line tenderness of effusion appreciated Left hip - severe groin pain on int/external rotation of her hip Bilateral calf pain on palpation without significant swelling. Genitourinary: no CVA tenderness Results & Data Results & Data ([facility]) Vital Signs (Past 12 Hours) Vital Signs Temp Pulse Resp BP Pulse Ox 12/17/21 07:10 36.3 C L 55 L 16 129/78 97 12/16/21 23:10 36.4 C L 65 16 120/71 93 PG Care Time/CCT Total # of Minutes Spent Total Time Spent with Patient: Total time spent is greater than 50% in coordination of care (as documented) at patient's floor/unit and/or counseling patient: Coding Level of Care Code 98658 Subseq Hosp Care Lvl 2 Diagnoses Ureterovesical junction (UVJ) obstruction N13.5 Sepsis A41.9 Encephalopathy G93.40 Acute kidney injury N17.9 Urinary tract infection N39.0 Hypomagnesemia E83.42 Hypercalcemia E83.52 Polymyalgia rheumatica M35.3 Gastroesophageal reflux K21.9 Type 2 diabetes mellitus E11.9 Hypertension I10 Hypertension type: unspecified Hyperlipidemia E78.5 Dementia F03.90 Dementia behavioral disturbance: without behavioral disturbance Dementia type: unspecified type Chronic pain G89.29 Dental caries K02.9 Joint pain M25.50 (1) Dementia Dementia behavioral disturbance: without behavioral disturbance Dementia type: unspecified type Qualified Code(s): F03.90 - Unspecified dementia without behavioral disturbance (2) Hypertension Hypertension type: unspecified Qualified Code(s): I10 - Essential (primary) hypertension
[2021-12-17 11:51] LABS: BUN Creatinine Ratio 27.4 (10-20); Calcium 9.6 mg/dl (8.5-10.1); Est GFR (Non-African American) 75.1 ml/min; Potassium 3.9 mmol/L (3.5-5.1)
[2021-12-17 11:53] LABS: Eosinophils # (auto) 0.09 K/uL (0-0.5); Eosinophils % (auto) 0.8 %; Hematocrit (blood only) 35.7 % (37-47); Hemoglobin 11.7 g/dL (12.0-16.0); Immature Granulocytes # (auto) 0.07 K/uL (0.00-0.02); Immature Granulocytes % (auto) 0.6 %; Lymphocytes # (auto) 1.59 K/uL (1.2-3.4); Lymphocytes % (auto) 14.5 %; Mean Corpuscular Hemoglobin 30.9 pg (25-34); Mean Corpuscular Hgb Conc 32.8 g/dL (32-36); Mean Corpuscular Volume 94.2 fL (80-100); Mean Platelet Volume 9.2 fL (7.4-10.4); Monocytes # (auto) 0.53 K/uL (0.11-0.59); Monocytes % (auto) 4.8 %; Neutrophils # (auto) 8.67 K/uL (1.4-6.5); Neutrophils % (auto) 79.3 %; Platelet Count 308 K/uL (130-400); RDW Coefficient of Variation 13.8 % (11.5-14.5); RDW Standard Deviation 47.3 fL (36.4-46.3); Red Blood Count 3.79 M/uL (4.2-5.4); White Blood Count 10.95 K/uL (4.8-10.8)
--- NOTE | 2021-12-17 14:33 | XRay Report ---
XR hip LT 2V w pelvis CLINICAL HISTORY: left groin pain on hip movement. COMPARISON STUDY: 06/17/2019 TECHNIQUE: AP pelvis and 2 left hip views FINDINGS: Bones: There is no evidence for an acute fracture or dislocation. There is no lytic or blastic lesion . Joints: The joint spaces are maintained. The bones are in anatomic alignment. Soft tissues: There is no focal soft tissue abnormality. There is no radiopaque foreign body. IMPRESSION: 1. No acute osseous pathology. ACT 112: Negative or not required by law. Electronically signed by: Carlos Olsen M.D. 12/17/2021 2:32 PM
--- NOTE | 2021-12-17 14:35 | XRay Report ---
XR shoulder LT min 2V routine CLINICAL HISTORY: left shoulder pain. COMPARISON STUDY: No previous studies for comparison. TECHNIQUE: 3 left shoulder views FINDINGS: Bones: The patient is status post plate and screw fixation for old, healed fracture of the humeral he ad and neck. There is no evidence for an acute fracture or dislocation. There is no lytic or blastic lesion. Joints: There is mild narrowing at the glenohumeral joint and AC joint. The bones are in anatomic ali gnment. Soft tissues: There is no focal soft tissue abnormality. There is no radiopaque foreign body. IMPRESSION: 1. No acute osseous pathology. 2. Status post previous internal fixation. 3. Joint space narrowing. ACT 112: Negative or not required by law. Electronically signed by: Carlos Olsen M.D. 12/17/2021 2:33 PM
--- NOTE | 2021-12-17 17:25 | Ultrasound Report ---
US venous doppler LE BI CLINICAL HISTORY: Bilateral calf pain COMPARISON: None available at the time of this dictation. TECHNIQUE: Bilateral lower extremity real-time compression venous ultrasound with Color Doppler imagi ng. Utilizing real-time ultrasonic imaging multiple real time high-resolution ultrasonic images with comp ression and noncompression maneuvers of the deep venous system in addition to color doppler imaging w ere performed from the common femoral vein through the proximal calf veins. FINDINGS: Currently there is normal compressibility of the deep venous system from the common femoral vein thro ugh the proximal calf veins. No current evidence of acute thrombosis is identified. Impression: No evidence of deep venous thrombus. ACT 112: Negative or not required by law. Electronically signed by: Carlos Olsen M.D. 12/17/2021 5:23 PM
[2021-12-17] MEDS: SIMVASTATIN 20 MG TAB PO SCH (20:02)
[2021-12-17] MEDS: DONEPEZIL HCL 10 MG TAB PO SCH (20:02)
--- NOTE | 2021-12-17 20:09 | XRay Report ---
XR knee LT 1 or 2V routine CLINICAL HISTORY: left knee pain. COMPARISON STUDY: No previous studies for comparison. TECHNIQUE: 3 left knee views FINDINGS: Bones: There is no evidence for an acute fracture or dislocation. There is no lytic or blastic lesion . Joints: There is evidence for stable total knee replacement. The prosthetic components are in anatomi c alignment. There is no evidence for an intra-articular effusion. The bones are in anatomic alignmen t. Soft tissues: There is no focal soft tissue abnormality. There is no radiopaque foreign body. IMPRESSION: 1. No acute osseous pathology. 2. Evidence for stable total knee replacement. ACT 112: Negative or not required by law. Electronically signed by: Carlos Olsen M.D. 12/17/2021 8:08 PM
[2021-12-17] MEDS: INSULIN GLARGINE SOLOSTAR 100 UNITS/ML 3 ML PEN SC SCH (20:58)
[2021-12-18] MEDS: carvediloL 3.125 MG TAB PO SCH ×2 (08:03→19:54)
[2021-12-18] MEDS: PANTOprazole 40 MG TAB PO SCH ×2 (08:05→19:55)
[2021-12-18] MEDS: FLUCONAZOLE 100 MG TAB PO SCH (08:05)
[2021-12-18] MEDS: CYANOCOBALAMIN (B-12) 500 MCG TABLET PO SCH (08:05)
[2021-12-18] MEDS: CHOLECALCIFEROL 1,000 UNITS 25 MCG TAB PO SCH (08:05)
[2021-12-18] MEDS: SULFAMETHOXAZOLE/TRIMETHOPRIM DS 800/160MG TAB PO SCH ×2 (08:05→19:55)
[2021-12-18] MEDS: predniSONE 20 MG TAB PO SCH (08:05)
[2021-12-18] MEDS: INSULIN ASPART PER UNIT SC SCH ×4 (08:48→20:23)
--- NOTE | 2021-12-18 08:57 | Hospitalist Progress Note ---
Date of Service December 18, 2021 Assessment & Plan (1) Ureterovesical junction (UVJ) obstruction: Plan: 5mm left sided UVJ stone with hydronephrosis and hydroureter. Source of sepsis, urology consulted, s/p Cystoscopy with left ureteroscopy, ureteral dilation, stone extraction, urine aspiration, retrograde pyelogram, and stent. - Lopez sensitive E. Coli and Priscilla noted on cultures: Continue fluconazole for 2 weeks and Bactrim 14 days (reduced source control due to need for hodge catheter). Last day December 24. Repeat blood cultures this morning, as awaiting bed at [facility] (hopefully tomorrow) Prior ECHO Aug admit w/ +Bcx, no vegetation. Remains on Fluconazole, Bactrim WBC was 10.9k on 12/17, has remained afebrile Repeat labs this morning pending (2) Sepsis: Plan: - 2/2 obstructing left UVJ stone with E. coli bacteremia from UTI - Febrile, tachycardic, and with increase in baseline confusion. - WBC 10.37, CRP 24.24, PCT 0.74 on admission - MAP- > 65 - Lactate- 2.0 - Blood culture - pansensitive E. coli - Urine culture with E. coli, priscilla and lactobacillus - now finished stress dose steroids Blood cultures from 12/11 all positive, no repeat blood cultures obtained Will repeat blood cultures this morning to ensure clearance given patient with multiple admissions for sepsis/bacteremia Monitor repeat cultures (3) Joint pain: Plan: Suspect related to how she slept last night as all on the left side of her body. XR shoulder, knee and hip without acute change Consider CT of left hip if still having significant groin pain tomorrow. Venous doppler negative for DVT Imaging negative --> not as much discomfort today, can hold off CT imaging at this time (4) Encephalopathy: Plan: Metabolic encephalopathy in the setting of sepsis, UTI, and UVJ stone - Suspect this is 2/2 to UTI/sepsis. Now resolved (5) Acute kidney injury: Plan: Now resolved seocndary to sepsis and obstructive uropathy (6) Urinary tract infection: Plan: continue on fluconazole and Bactrim as above for 14 days (7) Hypomagnesemia: Plan: Resolved on more resent check, but repeating given cramps reported and lows previously (8) Hypercalcemia: Plan: Resolved with IV fluids (9) Polymyalgia rheumatica: Plan: - Continue her chronic prednisone 20mg PO daily Given significant pain will also repeat ESR to make sure this is not her PMR however pain appears more localized to her joints therefore doubt this is the case. (10) Gastroesophageal reflux: Plan: - Continue protonix 40 mg BID. (11) Type 2 diabetes mellitus: Plan: HbA1C 7.8 in Aug Pharmacy consulted for glycemic control during inpatient stay (12) Hypertension: Plan: Continue carvedilol 3.125mg PO BID (13) Hyperlipidemia: Plan: - Continue simvastatin 20 mg daily. (14) Dementia: Plan: - Continue donepezil 10 mg hs. (15) Chronic pain: Plan: - Continue topical diclofenac gel, lidocaine cream, Tylenol. (16) Dental caries: Plan: Follow up with dentist on discharge Plan: VTE Prophylaxis - recent GI bleed in September, no chemical prophylaxis Code status - DNR/DNI. Disposition - medically stable for discharge pending rehab placement, possible bed tomorrow Admission and Anticipated Discharge Date Admission Date: December 11, 2021 Subjective Patient evaluated this morning. Sitting up in bed. Wanting to get up and moving. Initially was to have bed at rehab, but got bumped until tomorrow. Discussed repeating blood cultures given prior positive and that we will monitor overnight and hope for discharge possibly tomorrow. Reviewed imaging negative for fractures or blood clots of the legs, she is thankful for this information. No fever/chills, chest pain, shortness of breath, abdominal pain, nausea, vomiting. Eating/drinking without issues. Questions/concerns addressed at this time Review of Systems Review of Systems: All systems reviewed & are unremarkable except as noted in HPI & below Physical Exam Constitutional: WD/WN, vitals as above Eyes: pupils anicteric, equal and reactive ENMT: mmm, trachea midline without deviation Respiratory: normal respiratory effort, lungs clear to auscultation Cardiovascular: RRR, no murmur, no edema Gastrointestinal (Abdomen): normal bowel sounds, soft, nontender, no hepatosplenomegaly Musculoskeletal: Pain on all movements of left shoulder Left knee - no joint line tenderness of effusion appreciated Left hip - groin pain on int/external rotation of her hip Bilateral calf pain on palpation without significant swelling. Skin: warm, dry Neurologic: CN intact grossly, moves all extremities Psychiatric: alert, oriented x 3, pleasant and cooperative Genitourinary: no CVA tenderness hodge draining yellow urine Results & Data Results & Data ([facility]) Vital Signs (Past 12 Hours) Vital Signs Temp Pulse Pulse Resp BP Pulse Ox 12/18/21 07:32 36.7 C 54 L 18 132/75 96 12/17/21 23:00 36.7 C 57 L 18 99/65 L 94 Laboratory Results 12/18/21 12/17/21 12/17/21 Range/Units 08:12 20:23 17:44 WBC (4.8-10.8) K/uL RBC (4.2-5.4) M/uL Hgb (12.0-16.0) g/dL Hct (37-47) % MCV (80-100) fL MCH (25-34) pg MCHC (32-36) g/dL RDW Std Deviation (36.4-46.3) fL RDW Coeff of Junie (11.5-14.5) % Plt Count (130-400) K/uL MPV (7.4-10.4) fL Immature Gran % (Auto) % Neut % (Auto) % Lymph % (Auto) % Sumner % (Auto) % Eos % (Auto) % Baso % (Auto) % Neut # (Auto) (1.4-6.5) K/uL Lymph # (Auto) (1.2-3.4) K/uL Sumner # (Auto) (0.11-0.59) K/uL Eos # (Auto) (0-0.5) K/uL Baso # (Auto) (0-0.2) K/uL Immature Gran # (Auto) (0.00-0.02) K/uL ESR (0-30) mm/hr Sodium (136-145) mmol/L Potassium (3.5-5.1) mmol/L Chloride (98-107) mmol/L Carbon Dioxide (21-32) mmol/L Anion Gap (3-11) BUN (6-23) mg/dl Creatinine (0.6-1.2) mg/dl Est Cr Clr Drug Dosing ml/min Est GFR ( Amer) ml/min Est GFR (Non-Af Amer) ml/min BUN/Creatinine Ratio (10-20) Glucose (70-99(Fasting)) mg/dl POC Glucose 87 215 H 167 H (70-99) mg/dl Calcium (8.5-10.1) mg/dl Total Creatine Kinase (26-192) U/L 12/17/21 12/17/21 12/17/21 Range/Units 12:19 11:10 11:10 WBC (4.8-10.8) K/uL RBC (4.2-5.4) M/uL Hgb (12.0-16.0) g/dL Hct (37-47) % MCV (80-100) fL MCH (25-34) pg MCHC (32-36) g/dL RDW Std Deviation (36.4-46.3) fL RDW Coeff of Junie (11.5-14.5) % Plt Count (130-400) K/uL MPV (7.4-10.4) fL Immature Gran % (Auto) % Neut % (Auto) % Lymph % (Auto) % Sumner % (Auto) % Eos % (Auto) % Baso % (Auto) % Neut # (Auto) (1.4-6.5) K/uL Lymph # (Auto) (1.2-3.4) K/uL Sumner # (Auto) (0.11-0.59) K/uL Eos # (Auto) (0-0.5) K/uL Baso # (Auto) (0-0.2) K/uL Immature Gran # (Auto) (0.00-0.02) K/uL ESR 24 (0-30) mm/hr Sodium 134 L (136-145) mmol/L Potassium 3.9 (3.5-5.1) mmol/L Chloride 102 (98-107) mmol/L Carbon Dioxide 26 (21-32) mmol/L Anion Gap 6 (3-11) BUN 20 (6-23) mg/dl Creatinine 0.73 (0.6-1.2) mg/dl Est Cr Clr Drug Dosing 58.0 ml/min Est GFR ( Amer) 87.0 ml/min Est GFR (Non-Af Amer) 75.1 ml/min BUN/Creatinine Ratio 27.4 H (10-20) Glucose 119 H (70-99(Fasting)) mg/dl POC Glucose 125 H (70-99) mg/dl Calcium 9.6 (8.5-10.1) mg/dl Total Creatine Kinase 22 L (26-192) U/L 12/17/21 Range/Units 11:10 WBC 10.95 H (4.8-10.8) K/uL RBC 3.79 L (4.2-5.4) M/uL Hgb 11.7 L (12.0-16.0) g/dL Hct 35.7 L (37-47) % MCV 94.2 (80-100) fL MCH 30.9 (25-34) pg MCHC 32.8 (32-36) g/dL RDW Std Deviation 47.3 H (36.4-46.3) fL RDW Coeff of Junie 13.8 (11.5-14.5) % Plt Count 308 (130-400) K/uL MPV 9.2 (7.4-10.4) fL Immature Gran % (Auto) 0.6 % Neut % (Auto) 79.3 % Lymph % (Auto) 14.5 % Sumner % (Auto) 4.8 % Eos % (Auto) 0.8 % Baso % (Auto) 0.0 % Neut # (Auto) 8.67 H (1.4-6.5) K/uL Lymph # (Auto) 1.59 (1.2-3.4) K/uL Sumner # (Auto) 0.53 (0.11-0.59) K/uL Eos # (Auto) 0.09 (0-0.5) K/uL Baso # (Auto) 0.00 (0-0.2) K/uL Immature Gran # (Auto) 0.07 H (0.00-0.02) K/uL ESR (0-30) mm/hr Sodium (136-145) mmol/L Potassium (3.5-5.1) mmol/L Chloride (98-107) mmol/L Carbon Dioxide (21-32) mmol/L Anion Gap (3-11) BUN (6-23) mg/dl Creatinine (0.6-1.2) mg/dl Est Cr Clr Drug Dosing ml/min Est GFR ( Amer) ml/min Est GFR (Non-Af Amer) ml/min BUN/Creatinine Ratio (10-20) Glucose (70-99(Fasting)) mg/dl POC Glucose (70-99) mg/dl Calcium (8.5-10.1) mg/dl Total Creatine Kinase (26-192) U/L Diagnostic Findings Hip/Pelvis X-Ray 12/17/21 10:37 XR hip LT 2V w pelvis CLINICAL HISTORY: left groin pain on hip movement. COMPARISON STUDY: 06/17/2019 TECHNIQUE: AP pelvis and 2 left hip views FINDINGS: Bones: There is no evidence for an acute fracture or dislocation. There is no lytic or blastic lesion. Joints: The joint spaces are maintained. The bones are in anatomic alignment. Soft tissues: There is no focal soft tissue abnormality. There is no radiopaque foreign body. IMPRESSION: 1. No acute osseous pathology. ACT 112: Negative or not required by law. Electronically signed by: Carlos Olsen M.D. 12/17/2021 2:32 PM Knee X-Ray 12/17/21 10:37 XR knee LT 1 or 2V routine CLINICAL HISTORY: left knee pain. COMPARISON STUDY: No previous studies for comparison. TECHNIQUE: 3 left knee views FINDINGS: Bones: There is no evidence for an acute fracture or dislocation. There is no lytic or blastic lesion. Joints: There is evidence for stable total knee replacement. The prosthetic components are in anatomic alignment. There is no evidence for an intra- articular effusion. The bones are in anatomic alignment. Soft tissues: There is no focal soft tissue abnormality. There is no radiopaque foreign body. IMPRESSION: 1. No acute osseous pathology. 2. Evidence for stable total knee replacement. ACT 112: Negative or not required by law. Electronically signed by: Carlos Olsen M.D. 12/17/2021 8:08 PM Shoulder X-Ray 12/17/21 10:37 XR shoulder LT min 2V routine CLINICAL HISTORY: left shoulder pain. COMPARISON STUDY: No previous studies for comparison. TECHNIQUE: 3 left shoulder views FINDINGS: Bones: The patient is status post plate and screw fixation for old, healed fracture of the humeral head and neck. There is no evidence for an acute fracture or dislocation. There is no lytic or blastic lesion. Joints: There is mild narrowing at the glenohumeral joint and AC joint. The bones are in anatomic alignment. Soft tissues: There is no focal soft tissue abnormality. There is no radiopaque foreign body. IMPRESSION: 1. No acute osseous pathology. 2. Status post previous internal fixation. 3. Joint space narrowing. ACT 112: Negative or not required by law. Electronically signed by: Carlos Olsen M.D. 12/17/2021 2:33 PM Venous Doppler Study 12/17/21 10:37 US venous doppler LE BI CLINICAL HISTORY: Bilateral calf pain COMPARISON: None available at the time of this dictation. TECHNIQUE: Bilateral lower extremity real-time compression venous ultrasound with Color Doppler imaging. Utilizing real-time ultrasonic imaging multiple real time high-resolution ultrasonic images with compression and noncompression maneuvers of the deep venous system in addition to color doppler imaging were performed from the common femoral vein through the proximal calf veins. FINDINGS: Currently there is normal compressibility of the deep venous system from the common femoral vein through the proximal calf veins. No current evidence of acute thrombosis is identified. Impression: No evidence of deep venous thrombus. ACT 112: Negative or not required by law. Electronically signed by: Carlos Olsen M.D. 12/17/2021 5:23 PM PG Care Time/CCT Total # of Minutes Spent Total Time Spent with Patient: Total time spent is greater than 50% in coordination of care (as documented) at patient's floor/unit and/or counseling patient: Coding Level of Care Code 16961 Subseq Hosp Care Lvl 2 Diagnoses Ureterovesical junction (UVJ) obstruction N13.5 Sepsis A41.9 Joint pain M25.50 Encephalopathy G93.40 Acute kidney injury N17.9 Urinary tract infection N39.0 Hypomagnesemia E83.42 Hypercalcemia E83.52 Polymyalgia rheumatica M35.3 Gastroesophageal reflux K21.9 Type 2 diabetes mellitus E11.9 Hypertension I10 Hypertension type: unspecified Hyperlipidemia E78.5 Dementia F03.90 Dementia behavioral disturbance: without behavioral disturbance Dementia type: unspecified type Chronic pain G89.29 Dental caries K02.9 (1) Dementia Dementia behavioral disturbance: without behavioral disturbance Dementia type: unspecified type Qualified Code(s): F03.90 - Unspecified dementia without behavioral disturbance (2) Hypertension Hypertension type: unspecified Qualified Code(s): I10 - Essential (primary) hypertension
[2021-12-18] MEDS ORDERED: INSULIN HUMAN NPH SC SCH (09:00)
[2021-12-18 10:35] LABS: Basophils # (auto) 0.01 K/uL (0-0.2); Basophils % (auto) 0.1 %; Eosinophils # (auto) 0.14 K/uL (0-0.5); Eosinophils % (auto) 1.1 %; Hematocrit (blood only) 36.6 % (37-47); Hemoglobin 11.9 g/dL (12.0-16.0); Immature Granulocytes # (auto) 0.07 K/uL (0.00-0.02); Immature Granulocytes % (auto) 0.5 %; Lymphocytes # (auto) 2.17 K/uL (1.2-3.4); Lymphocytes % (auto) 16.9 %; Mean Corpuscular Hemoglobin 30.7 pg (25-34); Mean Corpuscular Hgb Conc 32.5 g/dL (32-36); Mean Corpuscular Volume 94.6 fL (80-100); Mean Platelet Volume 9.1 fL (7.4-10.4); Monocytes # (auto) 0.64 K/uL (0.11-0.59); Neutrophils # (auto) 9.82 K/uL (1.4-6.5); Neutrophils % (auto) 76.4 %; Platelet Count 349 K/uL (130-400); RDW Coefficient of Variation 13.9 % (11.5-14.5); RDW Standard Deviation 48.1 fL (36.4-46.3); Red Blood Count 3.87 M/uL (4.2-5.4); White Blood Count 12.85 K/uL (4.8-10.8)
[2021-12-18 10:57] LABS: Albumin Globulin Ratio 1.4 (0.9-2); Albumin Level 3.1 gm/dl (3.4-5.0); BUN Creatinine Ratio 24.4 (10-20); Bilirubin,Total 0.4 mg/dl (0.2-1.0); Calcium 9.8 mg/dl (8.5-10.1); Creatinine Clr Calc Pharmacy 53.5 ml/min; Est GFR (African American) 80.3 ml/min; Est GFR (Non-African American) 69.3 ml/min; Globulin 2.2 gm/dl (2.5-4.0); Magnesium 1.7 mg/dl (1.7-2.4); Potassium 3.9 mmol/L (3.5-5.1); Total Protein 5.3 gm/dl (6.0-8.3)
--- NOTE | 2021-12-18 12:25 | Pharmacy Report ---
Pharmacy Glycemic Short Note 2 - Date of Service December 18, 2021 - Glycemic Short BSG Results (Last 24 hours): 12/17/21 12/17/21 12/17/21 12:19 17:44 20:23 Glucose POC Glucose 125 H 167 H 215 H 12/18/21 12/18/21 12/18/21 08:12 10:04 12:13 Glucose 113 H POC Glucose 87 118 H OUTPATIENT ANTIDIABETIC REGIMEN: * Lantus 12 units BID * Novolog per scale * Home dose of prednisone 20 mg daily ASSESSMENT: 12/17/21 * Multiple day trend where BSG's increase throughout the day, often reaching a peak >180 mg/dL, then with a significant decrease overnight with AM fasting BSG's often below 100 mg/dL * Will change basal insulin from Lantus to NPH to help mimic the timing of post- prandial elevations with AM prednisone 12/16/21 * Fasting 98mg/dl, 88mg/dl prior to lunch, decrease Lantus starting tonight to prevent hypoglycemia * Loosen CF/CR for now to prevent hypoglycemia, may need to tighten back tomorrow after reduced basal received * Change bottom of goal range to 110mg/dl (from 100mg/dl) BACKGROUND * Ms Castañeda is an 86 y/o F with a PMH of IDDM who presents with bacteremia. Patient was on hydrocortisone 100 mg IV q8 hours but this has been subsequently d/c'ed after this morning's dose. * Patient resumed on home prednisone 20 mg daily starting 12/14. * BSGs yesterday were [phone] mg/dL (patient on hydrocortisone 100 mg IV q8) and today are 222-186 mg/dL. Hydrocortisone d/c'ed. * Will tighten Novolog significantly to weight-based stress of 3 to relieve steroid induced hyperglycemia. * Decrease Lantus to home dose since hydrocortisone d/c'ed. PLAN FOR INPATIENT GLYCEMIC CONTROL: * Basal insulin * NPH 8 units SQ qAM with prednisone * Bolus insulin * NovoLog per scale ACHS or Q6hrs while NPO * Goal Range: Low 110 mg/dL - High 140 mg/dL * Correction Factor: 40 mg/dL/unit * Nutritional / Prandial insulin per carb ratio of 1 unit per 10 grams CHO consumed
[2021-12-18] MEDS: DONEPEZIL HCL 10 MG TAB PO SCH (19:54)
[2021-12-18] MEDS: SIMVASTATIN 20 MG TAB PO SCH (19:55)
--- NOTE | 2021-12-18 20:41 | XRay Report ---
SINGLE VIEW CHEST CLINICAL HISTORY: Leukocytosis. FINDINGS: An AP, portable, upright chest radiograph is compared to study dated 12/11/2021. The heart is enlarged noting atherosclerotic calcification of the thoracic aorta. The pulmonary vasculature is no ncongested. Chronic interstitial thickening is similar to previous. The lungs and pleural spaces are clear noting mild bibasilar atelectasis. No pneumothorax is seen. The skeletal structures are osteope delmer. Postoperative change is partially visualized in the left proximal humerus. IMPRESSION: Cardiomegaly with no active disease in the chest. ACT 112: Negative or not required by law. Electronically signed by: Chandan Scott M.D. 12/18/2021 8:40 PM
[2021-12-19 08:01] LABS: Basophils # (auto) 0.01 K/uL (0-0.2); Basophils % (auto) 0.1 %; Eosinophils # (auto) 0.15 K/uL (0-0.5); Eosinophils % (auto) 1.6 %; Hematocrit (blood only) 36.3 % (37-47); Immature Granulocytes # (auto) 0.08 K/uL (0.00-0.02); Immature Granulocytes % (auto) 0.8 %; Lymphocytes # (auto) 3.46 K/uL (1.2-3.4); Lymphocytes % (auto) 36.3 %; Mean Corpuscular Hemoglobin 31.3 pg (25-34); Mean Corpuscular Hgb Conc 33.1 g/dL (32-36); Mean Corpuscular Volume 94.5 fL (80-100); Mean Platelet Volume 9.6 fL (7.4-10.4); Monocytes # (auto) 0.83 K/uL (0.11-0.59); Monocytes % (auto) 8.7 %; Neutrophils # (auto) 4.99 K/uL (1.4-6.5); Neutrophils % (auto) 52.5 %; Platelet Count 313 K/uL (130-400); RDW Coefficient of Variation 13.8 % (11.5-14.5); RDW Standard Deviation 47.9 fL (36.4-46.3); Red Blood Count 3.84 M/uL (4.2-5.4); White Blood Count 9.52 K/uL (4.8-10.8)
--- NOTE | 2021-12-19 08:21 | Hospitalist Progress Note ---
Date of Service December 19, 2021 Assessment & Plan (1) Ureterovesical junction (UVJ) obstruction: Plan: 5mm left sided UVJ stone with hydronephrosis and hydroureter. Source of sepsis, urology consulted, s/p Cystoscopy with left ureteroscopy, ureteral dilation, stone extraction, urine aspiration, retrograde pyelogram, and stent. - Lopez sensitive E. Coli and Paulette noted on cultures: Continue fluconazole for 2 weeks and Bactrim 14 days (reduced source control due to need for hodge catheter). Last day December 24. Repeat blood cultures this morning, as awaiting bed at [facility] (hopefully tomorrow) Prior ECHO Aug admit w/ +Bcx, no vegetation. Remains on Fluconazole, Bactrim ( WBC elevated 12/18 but afebrile. Repeat WBC this morning with resolution. CXR negative, ?lab error Awaiting placement at rehab (2) Sepsis: Plan: - 2/2 obstructing left UVJ stone with E. coli bacteremia from UTI - Febrile, tachycardic, and with increase in baseline confusion. - WBC 10.37, CRP 24.24, PCT 0.74 on admission - MAP- > 65 - Lactate- 2.0 - Blood culture - pansensitive E. coli - Urine culture with E. coli, paulette and lactobacillus - now finished stress dose steroids Blood cultures from 12/11 all positive, no repeat blood cultures obtained Will repeat blood cultures this morning to ensure clearance given patient with multiple admissions for sepsis/bacteremia Monitor repeat cultures -- no growth (3) Joint pain: Plan: Suspect related to how she slept last night as all on the left side of her body. XR shoulder, knee and hip without acute change Consider CT of left hip if still having significant groin pain tomorrow. Venous doppler negative for DVT Imaging negative --> not as much discomfort today, can hold off CT imaging at this time (4) Encephalopathy: Plan: Metabolic encephalopathy in the setting of sepsis, UTI, and UVJ stone - Suspect this is 2/2 to UTI/sepsis. Now resolved, however baseline dementia (on donepezil) suspected/hospital delirium. Knows name/in hospital, unclear on date/time (5) Acute kidney injury: Plan: Now resolved secondary to sepsis and obstructive uropathy (6) Urinary tract infection: Plan: continue on fluconazole and Bactrim as above for 14 days (7) Hypomagnesemia: Plan: Resolved on more resent check, but repeating given cramps reported and lows previously Normal on repeat (8) Hypercalcemia: Plan: Resolved with IV fluids (9) Polymyalgia rheumatica: Plan: - Continue her chronic prednisone 20mg PO daily Given significant pain will also repeat ESR to make sure this is not her PMR however pain appears more localized to her joints therefore doubt this is the case. ESR 73--> 24 on repeat (10) Gastroesophageal reflux: Plan: - Continue protonix 40 mg BID. (11) Type 2 diabetes mellitus: Plan: HbA1C 7.8 in Aug Pharmacy consulted for glycemic control during inpatient stay On NPH now, BSgs acceptable (12) Hypertension: Plan: BP stable Continue carvedilol 3.125mg PO BID (13) Hyperlipidemia: Plan: - Continue simvastatin 20 mg daily. (14) Dementia: Plan: - Continue donepezil 10 mg hs. (15) Chronic pain: Plan: - Continue topical diclofenac gel, lidocaine cream, Tylenol. (16) Dental caries: Plan: Follow up with dentist on discharge Plan: VTE Prophylaxis - recent GI bleed in September, no chemical prophylaxis, SCDs Code status - DNR/DNI. CM following -- awaiting SNF. Messaged CM for update on bed Admission and Anticipated Discharge Date Admission Date: December 11, 2021 Subjective evaluated this morning before lunch. resting in bed, no acute complaints. chronic level of pain to joints but no increased issues. she knows her name/she is in the hospital, but pleasant confusion to time/date (chronic issue). No fever/chill, chest pain, shortness of breath, abdominal pain, nausea or vomiting. Eating/drinking without issue. Awaiting bed at SNF Review of Systems Review of Systems: All systems reviewed & are unremarkable except as noted in HPI & below Physical Exam Physical Exam: Constitutional:I WD/WN, vitals as a brandi Eyes: pupils anicteric, equal and reactive ENMT: mmm, trachea midli ne without deviati on Respiratory: normal respiratory effort, lungs patti ar to auscultation Cardiovascular:I RRR, no murmur, no edema Gastrointestinal ( Abdomen): normal bowel sound s, soft, nontender , no hepatosplenom egaly Musculoskeletal: Pain on all moveme nts of left should er Left knee - no joint line tendern ess of effusion ap preciated Left hip - groin pain on int/external rotat ion of her hip Malik ateral calf pain o n palpation withou t significant swel ling. Skin: warm, dry Neurologic: CN intact grossly, moves all extremi ties Psychiatric: alert, oriented to person/place, not time, pleasant an d cooperative Genitourinary: no CVA tenderness, hodge draining ye llow urine Results & Data Results & Data ([facility]) Vital Signs (Past 12 Hours) Vital Signs Temp Pulse Resp BP Pulse Ox 12/19/21 07:06 36.6 C 56 L 18 154/84 H 97 Diagnostic Findings Chest X-Ray 12/18/21 17:10 SINGLE VIEW CHEST CLINICAL HISTORY: Leukocytosis. FINDINGS: An AP, portable, upright chest radiograph is compared to study dated 12/11/2021. The heart is enlarged noting atherosclerotic calcification of the thoracic aorta. The pulmonary vasculature is noncongested. Chronic interstitial thickening is similar to previous. The lungs and pleural spaces are clear noting mild bibasilar atelectasis. No pneumothorax is seen. The skeletal structures are osteopenic. Postoperative change is partially visualized in the left proximal humerus. IMPRESSION: Cardiomegaly with no active disease in the chest. ACT 112: Negative or not required by law. Electronically signed by: Chandan Scott M.D. 12/18/2021 8:40 PM PG Care Time/CCT Total # of Minutes Spent Total Time Spent with Patient: Total time spent is greater than 50% in coordination of care (as documented) at patient's floor/unit and/or counseling patient: Coding Level of Care Code 70115 Subseq Hosp Care Lvl 2 Diagnoses Ureterovesical junction (UVJ) obstruction N13.5 Sepsis A41.9 Joint pain M25.50 Encephalopathy G93.40 Acute kidney injury N17.9 Urinary tract infection N39.0 Hypomagnesemia E83.42 Hypercalcemia E83.52 Polymyalgia rheumatica M35.3 Gastroesophageal reflux K21.9 Type 2 diabetes mellitus E11.9 Hypertension I10 Hypertension type: unspecified Hyperlipidemia E78.5 Dementia F03.90 Dementia behavioral disturbance: without behavioral disturbance Dementia type: unspecified type Chronic pain G89.29 Dental caries K02.9 (1) Dementia Dementia behavioral disturbance: without behavioral disturbance Dementia type: unspecified type Qualified Code(s): F03.90 - Unspecified dementia without behavioral disturbance (2) Hypertension Hypertension type: unspecified Qualified Code(s): I10 - Essential (primary) hypertension
[2021-12-19 08:29] LABS: Albumin Globulin Ratio 1.5 (0.9-2); Albumin Level 3.1 gm/dl (3.4-5.0); BUN Creatinine Ratio 24.1 (10-20); Bilirubin,Total 0.4 mg/dl (0.2-1.0); Calcium 9.6 mg/dl (8.5-10.1); Creatinine Clr Calc Pharmacy 46.4 ml/min; Est GFR (African American) 74.5 ml/min; Est GFR (Non-African American) 64.3 ml/min; Globulin 2.1 gm/dl (2.5-4.0); Magnesium 1.7 mg/dl (1.7-2.4); Potassium 3.8 mmol/L (3.5-5.1); Total Protein 5.2 gm/dl (6.0-8.3)
[2021-12-19] MEDS ORDERED: INSULIN HUMAN NPH SC SCH (09:00)
[2021-12-19] MEDS: INSULIN ASPART PER UNIT SC SCH ×4 (09:05→21:45)
[2021-12-19] MEDS: CYANOCOBALAMIN (B-12) 500 MCG TABLET PO SCH (09:06)
[2021-12-19] MEDS: carvediloL 3.125 MG TAB PO SCH ×2 (09:06→20:05)
[2021-12-19] MEDS: CHOLECALCIFEROL 1,000 UNITS 25 MCG TAB PO SCH (09:06)
[2021-12-19] MEDS: FLUCONAZOLE 100 MG TAB PO SCH (09:07)
[2021-12-19] MEDS: predniSONE 20 MG TAB PO SCH (09:08)
[2021-12-19] MEDS: SULFAMETHOXAZOLE/TRIMETHOPRIM DS 800/160MG TAB PO SCH ×2 (09:08→20:02)
[2021-12-19] MEDS: PANTOprazole 40 MG TAB PO SCH ×2 (09:08→20:02)
[2021-12-19] MEDS: DONEPEZIL HCL 10 MG TAB PO SCH (20:02)
[2021-12-19] MEDS: SIMVASTATIN 20 MG TAB PO SCH (20:02)
[2021-12-20 06:27] LABS: BUN Creatinine Ratio 19.8 (10-20); Calcium 9.8 mg/dl (8.5-10.1); Creatinine Clr Calc Pharmacy 47.5 ml/min; Est GFR (African American) 76.8 ml/min; Est GFR (Non-African American) 66.2 ml/min; Magnesium 1.8 mg/dl (1.7-2.4); Potassium 4.1 mmol/L (3.5-5.1)
--- NOTE | 2021-12-20 07:49 | Discharge Summary ---
Date of Service December 20, 2021 Admission HPI Per Admitting Provider Zina Castañeda is an 86 y/o female with past medical history of DM2, polymyalgia rheumatica on chronic prednisone, isolated episode of a fib in 2019 post op, hypertension, GERD, dementia, kidney stones, and recurrent UTIs who presents today from [facility] for fever and confusion. Due to patient's mental status, information is obtained from patient's son, who is at bedside, as well as ED provider. Patient's son received a call this morning from the facility that his mother had been more confused than she is at her baseline, and also had a fever and low oxygen saturations. She was brought to the ED for evaluation of this. Per EMS report, patient had been experiencing lower abdominal pain over the past few days, but otherwise had apparently been in her normal state of health. She is wheelchair bound and has intermittent lucid moments, but is quite confused at baseline. In ED, she is febrile 103.1, HR 104, normotensive and on room air. No leukocytosis, but with procalcitonin 0.74, ESR 73, CRP 24.49. Lactate 2.0. BUN 35, creatinine 1.06, glucose 262, calcium 11.1, magnesium 1.3, T bili 1.5, hsTrop 23.1. UA with WBCs, RBCs, leuk esterase, bacteria, yeast. Blood and urine culture sent. CT A/P revealed an obstructive stone at the left UVJ with resultant hydronephrosis and hydroureter. CXR showed cardiomegaly without acute process. CT head unremarkable. She has received 1L NSS x2, Zosyn, and Tylenol in ED. Urology was consulted, as well as hospitalist for further evaluation and admission. Admission Exam Per Admitting Provider General: Patient is sleeping and quite drowsy, but arousable. = Grimaces with palpation of abdomen, otherwise does not appear to be in any acute distress. Unable to participate further in exam. Head: Normocephalic, atraumatic ENT: PERRL, EOMI, no pharyngeal exudate, mucous membranes moist Chest: Clear to auscultation, on room air, no adventitious breath sounds Cardiac: Regular rate and rhythm, no murmur, no JVD, normal peripheral pulses, good capillary refill Abdominal: NABS x 4 quadrants, soft, TTP in left lower and upper quadrant; no rebound, guarding or tenderness Extremities: Normal inspection, no peripheral edema or erythema, calfs nontender to palpation Psych: Normal mood and affect Neuro: Strength intact bilaterally and rated 5/5, no motor deficits, speech is clear, no peripheral sensory deficits Skin: no rash or erythema Principal Diagnosis Sepsis, UTI, Bacteremia, Obstructing Stone Discharge Exam Constitutional: WD/WN, vitals as above Eyes: pupils anicteric, equal and reactive ENMT: mmm, trachea midline without deviation Respiratory: normal respiratory effort, lungs clear to auscultation Cardiovascular: RRR, no murmur, no edema Gastrointestinal (Abdomen): normal bowel sounds, soft, nontender, no hepatosplenomegaly Musculoskeletal: Pain on all movements of left shoulder Left knee - no joint line tenderness of effusion appreciated Left hip - groin pain on int/external rotation of her hip Bilateral calf pain on palpation without significant swelling. Right knee with osteoarthritis, non-tender, no effusion Skin: warm, dry Neurologic: CN intact grossly, moves all extremities Psychiatric: alert, oriented to person/place, not time, pleasant and cooperative Genitourinary: no CVA tenderness, hodge draining yellow urine Discharge Data Allergies Allergy/AdvReac Type Severity Reaction Status Date / Time adhesive Allergy Intermediate SKIN Verified 12/11/21 09:21 BLISTERS tetanus toxoid, adsorbed Allergy Mild EDEMA AT Verified 12/11/21 09:21 SITE codeine AdvReac Intermediate HEART Verified 12/11/21 09:21 PALPITATIONS, RECIEVED MORPHINE IV IN 2004 ADMIT Consultations 12/11/21 10:37 ED Decision to Admit Stat 12/11/21 10:38 Consult Urology Stat Procedures Performed Operation Date: 12/11/21 11:30 Actual Procedures p Cystoscopy, Left Retrograde Pyelogram, Left Ureteroscopy, Left stone basket extraction, and ureteral dilation, Left Stent Insertion(Left) - Christiano Mendez, Ordered Studies Abdomen/Pelvis CT 12/11/21 08:16 CT abd pelvis wo con CLINICAL HISTORY: pain, lethargic, febrile TECHNIQUE: Helical axial images of the abdomen and pelvis were obtained. Automated dose lowering techniques and/or adjustment according to patient size were utilized for this exam. This exam was performed without intravenous contrast. CT DOSE: 1026.57 mGycm COMPARISON: None available at the time of this dictation. FINDINGS: Lower chest: Cardiomegaly is partially visualized. Liver: Unremarkable. No focal lesions are seen. Gallbladder and biliary tree: Patient is status post cholecystectomy. Physiologic prominence of the biliary ducts is noted. Pancreas: Unremarkable, no focal lesions. Spleen: Unremarkable. Adrenals: Unremarkable. Kidneys and ureters: Multiple cysts are seen. There is an obstructive stone at the left UVJ measuring 5 mm with resultant hydronephrosis/hydroureter. Nonobstructive stones are also seen in the kidneys. Bladder: Limited evaluation due to underdistention. Reproductive organs: Patient is status post hysterectomy. Bowel: Unremarkable. Lymph nodes Retroperitoneal: Unremarkable. Mesenteric: Unremarkable. Pelvic: Unremarkable. Peritoneum: Normal. Vessels: Lucent centered calcifications in the right retroperitoneum are seen which may represent vascular phleboliths. Abdominal wall: Unremarkable. Bones: Degenerative changes in the visualized spine. IMPRESSION: Obstructive stone at the left UVJ with resultant hydronephrosis/hydroureter. Additional findings as above without evidence of acute abnormality. ACT 112: Negative or not required by law. Electronically signed by: Frandy Christie M.D. 12/11/2021 10:23 AM Chest X-Ray 12/11/21 08:16 XR chest 1V portable HISTORY: 86 years-old Female SEPSIS acute sepsis COMPARISON: Chest radiograph 09/27/2021 TECHNIQUE: Portable AP view of the chest FINDINGS: The cardiac silhouette is enlarged. Atherosclerosis of the aorta. There is no pneumothorax, pleural effusion, airspace consolidation or overt pulmonary edema. Mild right hemidiaphragmatic elevation. Cholecystectomy. Degenerative changes of the shoulders and spine. ORIF hardware of the left humerus. IMPRESSION: Cardiomegaly without acute process. ACT 112: Negative or not required by law. The above report was generated using voice recognition software. It may contain grammatical, syntax or spelling errors. Electronically signed by: Tong Mendes M.D. 12/11/2021 8:[address] 12/11/21 08:16 CT SCAN OF THE BRAIN WITHOUT IV CONTRAST CLINICAL HISTORY: Change in mental status. COMPARISON STUDY: CT of the brain dated 11/28/2020. TECHNIQUE: Unenhanced axial CT scan of the brain is performed from the vertex to the skull base. A dose lowering technique was utilized adhering to the principles of ALARA. CT DOSE: 690.05 mGycm FINDINGS: Brain parenchyma: There is age-related involutional change noting moderate to advanced subcortical and periventricular microangiopathic disease. There is no hemorrhage, mass effect, or evidence of acute territorial ischemia by CT criteria. Croft-white matter differentiation is preserved. No extra-axial fluid collection is seen. Ventricles, sulci, cisterns: Prominent secondary to involutional change. Intracranial vasculature: There is atherosclerotic calcification of the cavernous carotid arteries. Calvarium: Unremarkable. Sinuses and mastoids: There is complete opacification of the left sphenoid sinus. The remaining visualized paranasal sinuses are clear. The mastoid air cells are well pneumatized. Orbits: The bony orbits are grossly intact. There are bilateral ocular lens implants. IMPRESSION: There is no hemorrhage, mass effect, or evidence of acute territorial ischemia by CT criteria. ACT 112: Negative or not required by law. Electronically signed by: Chandan Scott M.D. 12/11/2021 9:55 AM Retrograde Pyelogram 12/11/21 14:30 INTRAOPERATIVE RADIOGRAPHS CLINICAL HISTORY: Left-sided ureteral stent placement. Fluoroscopy time: 30 seconds. FINDINGS: 4 spot fluoroscopic views of the left abdomen are correlated with abdominal CT dated 12/11/2021. A catheter is placed in the left ureter which is then opacified with contrast. There is left hydroureteronephrosis. The final 2 images show the proximal and distal ends of the left ureteral stent in appropriate position. IMPRESSION: Intraoperative images from a left ureteral stent placement procedure as above. Electronically signed by: Chandan Scott M.D. 12/11/2021 4:29 PM Hip/Pelvis X-Ray 12/17/21 10:37 XR hip LT 2V w pelvis CLINICAL HISTORY: left groin pain on hip movement. COMPARISON STUDY: 06/17/2019 TECHNIQUE: AP pelvis and 2 left hip views FINDINGS: Bones: There is no evidence for an acute fracture or dislocation. There is no lytic or blastic lesion. Joints: The joint spaces are maintained. The bones are in anatomic alignment. Soft tissues: There is no focal soft tissue abnormality. There is no radiopaque foreign body. IMPRESSION: 1. No acute osseous pathology. ACT 112: Negative or not required by law. Electronically signed by: Carlos Olsen M.D. 12/17/2021 2:32 PM Knee X-Ray 12/17/21 10:37 XR knee LT 1 or 2V routine CLINICAL HISTORY: left knee pain. COMPARISON STUDY: No previous studies for comparison. TECHNIQUE: 3 left knee views FINDINGS: Bones: There is no evidence for an acute fracture or dislocation. There is no lytic or blastic lesion. Joints: There is evidence for stable total knee replacement. The prosthetic components are in anatomic alignment. There is no evidence for an intra- articular effusion. The bones are in anatomic alignment. Soft tissues: There is no focal soft tissue abnormality. There is no radiopaque foreign body. IMPRESSION: 1. No acute osseous pathology. 2. Evidence for stable total knee replacement. ACT 112: Negative or not required by law. Electronically signed by: Carlos Olsen M.D. 12/17/2021 8:08 PM Shoulder X-Ray 12/17/21 10:37 XR shoulder LT min 2V routine CLINICAL HISTORY: left shoulder pain. COMPARISON STUDY: No previous studies for comparison. TECHNIQUE: 3 left shoulder views FINDINGS: Bones: The patient is status post plate and screw fixation for old, healed fracture of the humeral head and neck. There is no evidence for an acute fracture or dislocation. There is no lytic or blastic lesion. Joints: There is mild narrowing at the glenohumeral joint and AC joint. The bones are in anatomic alignment. Soft tissues: There is no focal soft tissue abnormality. There is no radiopaque foreign body. IMPRESSION: 1. No acute osseous pathology. 2. Status post previous internal fixation. 3. Joint space narrowing. ACT 112: Negative or not required by law. Electronically signed by: Carlos Olsen M.D. 12/17/2021 2:33 PM Venous Doppler Study 12/17/21 10:37 US venous doppler LE CLINICAL HISTORY: Bilateral calf pain COMPARISON: None available at the time of this dictation. TECHNIQUE: Bilateral lower extremity real-time compression venous ultrasound with Color Doppler imaging. Utilizing real-time ultrasonic imaging multiple real time high-resolution ultrasonic images with compression and noncompression maneuvers of the deep venous system in addition to color doppler imaging were performed from the common femoral vein through the proximal calf veins. FINDINGS: Currently there is normal compressibility of the deep venous system from the c ommon femoral vein through the proximal calf veins. No current evidence of acute thrombosis is identified. Impression: No evidence of deep venous thrombus. ACT 112: Negative or not required by law. Electronically signed by: Carlos Olsen M.D. 12/17/2021 5:23 PM Chest X-Ray 12/18/21 17:10 SINGLE VIEW CHEST CLINICAL HISTORY: Leukocytosis. FINDINGS: An AP, portable, upright chest radiograph is compared to study dated 12/11/2021. The heart is enlarged noting atherosclerotic calcification of the thoracic aorta. The pulmonary vasculature is noncongested. Chronic interstitial thickening is similar to previous. The lungs and pleural spaces are clear noting mild bibasilar atelectasis. No pneumothorax is seen. The skeletal structures are osteopenic. Postoperative change is partially visualized in the left proximal humerus. IMPRESSION: Cardiomegaly with no active disease in the chest. ACT 112: Negative or not required by law. Electronically signed by: Chandan Scott M.D. 12/18/2021 8:40 PM Hospital Course (1) Ureterovesical junction (UVJ) obstruction: 5mm left sided UVJ stone with hydronephrosis and hydroureter. Source of sepsis, urology consulted, s/p Cystoscopy with left ureteroscopy, ureteral dilation, stone extraction, urine aspiration, retrograde pyelogram, and stent. - Lopez sensitive E. Coli and Paulette noted on cultures: urine and blood Continue fluconazole Bactrim 2 weeks --> last day 12/24 of note, reduced source control due to need for hodge catheter repeat blood cultures ngtd WBC normalized on repeat, afebrile PT/OT --> SNF arranged at discharge (2) Sepsis: 2/2 obstructing left UVJ stone with E. coli bacteremia from UTI - Febrile, tachycardic, and with increase in baseline confusion. WBC 10.37, CRP 24.24, PCT 0.74 on admission - MAP- > 65 - Lactate- 2.0 - Blood culture - pansensitive E. coli - Urine culture with E. coli, paulette and lactobacillus - now finished stress dose steroids Blood cultures from 12/11 all positive, repeat blood cultures ngtd however was GNB (3) Joint pain: Suspect related to how she slept days prior, chronic pain at baseline. Hx PMR, ESR repeated and wnl (prior elevated) XR shoulder, knee and hip without acute change Consider CT of left hip if still having significant groin pain tomorrow. Venous doppler negative for DVT Imaging negative (4) Encephalopathy: Metabolic encephalopathy in the setting of sepsis, UTI, and UVJ stone Suspect this is 2/2 to UTI/sepsis in patient with baseline dementia On donepezil at baseline, knows name/hospital, unsure of year/date but cooperative and answering questions appropriately tx uti as above (5) Acute kidney injury: Now resolved secondary to sepsis and obstructive uropathy (6) Urinary tract infection: continued on fluconazole and Bactrim as above for 14 days (7) Hypomagnesemia: replaced/resolved on repeat (8) Hypercalcemia: Resolved with IV fluids (9) Polymyalgia rheumatica: Continued her chronic prednisone 20mg PO daily after stress dosing inpatient repeat ESR 73--> 24 (10) Gastroesophageal reflux: - Continued protonix 40 mg BID. (11) Type 2 diabetes mellitus: HbA1C 7.8 in Aug Pharmacy consulted for glycemic control during inpatient stay Resumed home meds at discharge, monitor at SNF (12) Hypertension: BP stable Continued carvedilol 3.125mg PO BID (13) Hyperlipidemia: - Continued simvastatin 20 mg daily. (14) Dementia: - Continued donepezil 10 mg hs. also w/ prior hx B12 deficiency earlier this year and continued on supplementation set for B1 prior to discharge and placed on supplementation empirically (15) Chronic pain: - Continued topical diclofenac gel, lidocaine cream, Tylenol. (16) Dental caries: Follow up with dentist on discharge VTE Prophylaxis - recent GI bleed in September, no chemical prophylaxis, SCDs Code status - DNR/DNI. Total Time Total Time Spent Total Time Spent (In Minutes): 45 Discharge Plan Discharge Items Patient Disposition: Transfer Snf Fac Reason For Visit: SEPSIS 2/2 OBSTRUCTIVE UVJ STONE Discharge Diagnosis: Sepsis, Bacteremia, Urinary Tract Infection from obstructing stone Goals: You have been hospitalized for an urgent problem which required surgery. During your stay at [facility], we have made an effort to correct the problem that brought you to the hospital while keeping you as comfortable as possible. Surgery and medications were used to bring your condition under control and your discharge instructions will include directions for any medications you should take after leaving the hospital. Please make sure to follow the advice of your surgeon regarding follow up with the surgeon and with your primary care provider. Activity: As commented below Activity Comment: advance activity with therapy Non-emergency contact: Primary Care Provider and Urologist Call non-emergency contact if: you have any medication questions, your symptoms worsen and you have a fever Follow-up/Referrals: Anikte Drake MD [Primary Care Provider] - Christiano Mendez DO [Physician] - (1-2 weeks) Diet: Carb Consistent or DM2 and Heart Healthy Diet Texture: Easy to Chew Addtl Attending Provider Instructions: You were hospitalized for sepsis due to an obstructing kidney stone. Urology was consulted and you underwent cystoscopy with stent placement and cultures show both bacterial and fungal infection. You are to continue fluconazole and bactrim until December 24 to complete treatment. Your potassium has been normal while off your potassium supplements while on bactrim. You should continue to HOLD these until you are done with your antibioitcs and have repeat labs prior to restarting these. You will need follow up with Urology for continued treatment/stent removal after treatment is complete. You have been evaluated by therapy and have been arranged prison at discharge. You should follow up with your PCP in the next 7-10 days to monitor your progress and also recommend following up with dentist for dental issues. Please return to the ER with any fever, worsening confusion, chest pain, shortness of breath or for any other issues concerning for you. Take care! Pending Studies at Discharge: Yes Studies:: B1 Repeat blood cultures -- no growth to date Stand-Alone Forms: [facility] [employer], Smoking Cessation Skilled Items Patient informed of condition?: Yes DNR: Yes Discharge Level of Care: Skilled Communicable Disease: No Discharge Prognosis: Stable Lines: None Urinary Catheter: Yes Medications and DC Order Prescriptions: New fluconazole 100 mg Tablet 200 mg PO QAM Qty: 4 RF: 0 thiamine HCl (vitamin B1) 100 mg Tablet 100 mg PO QAM Qty: 30 RF: 0 sulfamethoxazole-trimethoprim [Bactrim DS] 800-160 mg Tablet 1 tab PO BID Qty: 9 RF: 0 Continued (DME) Overnight Pad For Women Pad See Rx Instructions .ROUTE .MEDSUPPLY Qty: 168 RF: 3 (DME) Novofine Autocover 30 gauge x 1/3" needle See Rx Instructions .ROUTE .MEDSUPPLY Qty: 100 RF: 3 nystatin 100,000 unit/gram powder 1 applic TOP BID PRN (Reason: rash) Qty: 60 RF: 0 (DME) OneTouch Ultra Blue Test Strip Strip See Rx Instructions .ROUTE .MEDSUPPLY Qty: 200 RF: 3 (DME) BD AutoShield Duo Pen Needle 30 gauge x 3/16" needle See Rx Instructions .ROUTE .MEDSUPPLY Qty: 200 RF: 3 donepezil [Aricept] 10 mg tablet 10 mg PO HS Qty: 90 RF: 3 cholecalciferol (vitamin D3) 50 mcg (2,000 unit) capsule 2,000 unit PO QAM Qty: 30 RF: 6 simvastatin 20 mg tablet 20 mg PO HS Qty: 90 RF: 3 prednisone 20 mg tablet 20 mg PO QAM Qty: 90 RF: 3 (DME) lancets [ReadyLance Safety Lancets] 30 gauge misc See Rx Instructions .ROUTE .MEDSUPPLY Qty: 200 RF: 3 diclofenac sodium 1 % Gel 4 g TOPICAL DAILY PRN (Reason: PAIN R KNEE) RF: 0 acetaminophen 325 mg tablet 650 mg PO TID MDD 3 GRAMS/24 HOURS RF: 0 acetaminophen 325 mg tablet 650 mg PO Q4 MDD 3g PRN (Reason: Fever Or Pain) RF: 0 insulin glargine [Lantus Solostar U-100 Insulin] 100 unit/mL (3 mL) insulin pen 12 unit SC BID RF: 0 zinc oxide 20 % Ointment 1 applic TOPICAL QS RF: 0 docusate sodium [Colace] 100 mg Capsule 100 mg PO DAILY PRN (Reason: Constipation) RF: 0 polyethylene glycol 3350 [Miralax] 17 gram/dose Powder 17 g PO Q24H PRN (Reason: Constipation) RF: 0 ondansetron 4 mg Tablet,Disintegrating 4 mg PO Q6H PRN (Reason: Nausea And Vomiting) RF: 0 insulin aspart U-100 [Novolog PenFill U-100 Insulin] 100 unit/mL Cartridge 1 sliding scale dose SUBCUT USEASDIRECTD RF: 0 pantoprazole [address] For Susp In Packet 40 mg PO BID RF: 0 zinc oxide 40 % Ointment 1 applic TOPICAL UD PRN (Reason: Incontinence) RF: 0 Bengay Lidocaine Cream 4% 1 applic topical QID RF: 0 carvedilol [Coreg] 3.125 mg tablet 3.125 mg PO BID RF: 0 cyanocobalamin (vitamin B-12) 1,000 mcg capsule 1,000 mcg PO QAM RF: 0 Discontinued potassium chloride 10 mEq Capsule, Extended Release 20 meq PO BID RF: 0 Discharge Orders: Discharge Order (Routine); Ordered 12/20/21 Ordered By: Chaparrita Santos/Other Patient Handouts: Urinary Tract Infections in Women Admission Data Admit Date/Time: 12/11/21 11:23 Attending Provider: Connor Pérez Admit Provider: Aggie Felix Primary Care Provider: Aniket Drake Other Providers: Jan Royal [place]gal ; Aggie Felix ; Christiano Mendez Other Interventions: Discharge Summary Assessment (RN) Last Done: 12/20/21 09:10 Supervising Physician Co-Signing Physician Notes I supervised Chaparrita Sanders PA-C on this discharge. I interviewed and examined the patient independently of her. The plan is as written in the note except for any following changes/exceptions: None Doing well today. No major pain or urinary issues. Ready for discharge to rehab. Coding Level of Care Code D/C DAY MANAGEMENT >30 MINS Diagnoses Ureterovesical junction (UVJ) obstruction N13.5 Sepsis A41.9 Joint pain M25.50 Encephalopathy G93.40 Acute kidney injury N17.9 Urinary tract infection N39.0 Hypomagnesemia E83.42 Hypercalcemia E83.52 Polymyalgia rheumatica M35.3 Gastroesophageal reflux K21.9 Type 2 diabetes mellitus E11.9 Hypertension I10 Hypertension type: unspecified Hyperlipidemia E78.5 Dementia F03.90 Dementia behavioral disturbance: without behavioral disturbance Dementia type: unspecified type Chronic pain G89.29 Dental caries K02.9
[2021-12-20] MEDS: carvediloL 3.125 MG TAB PO SCH (08:48)
[2021-12-20] MEDS: CHOLECALCIFEROL 1,000 UNITS 25 MCG TAB PO SCH (08:49)
[2021-12-20] MEDS: CYANOCOBALAMIN (B-12) 500 MCG TABLET PO SCH (08:49)
[2021-12-20] MEDS: PANTOprazole 40 MG TAB PO SCH (08:49)
[2021-12-20] MEDS: predniSONE 20 MG TAB PO SCH (08:49)
[2021-12-20] MEDS: SULFAMETHOXAZOLE/TRIMETHOPRIM DS 800/160MG TAB PO SCH (08:49)
[2021-12-20] MEDS: INSULIN ASPART PER UNIT SC SCH (08:52)
[2021-12-20] MEDS ORDERED: FLUCONAZOLE 100 MG TAB PO SCH (09:00)
[2021-12-20] MEDS ORDERED: INSULIN HUMAN NPH SC SCH (09:00)
[2021-12-20] MEDS ORDERED: THIAMINE HCL 100 MG TAB PO SCH (09:00)
== END 2021-12-20 10:36 | DRG 853 ==
LOC: ED 08:04 → 2S 11:23 → SUATTDRO 11:23 → 2S 11:48 → 3W 12-13 00:58

== ENCOUNTER 2022-04-18 13:52 | Inpatient (IN) ==
[2022-04-18] MEDS ORDERED: ASPIRIN CHEW 324 MG PO STA (13:57)
--- NOTE | 2022-04-18 14:17 | Emergency Department Note ---
Impression & Plan Chest pain, Abdominal pain, acute, right upper quadrant, Back pain, Abnormal computed tomography of abdomen and pelvis ED Provider Note NAME: FARZAD OLIVEIRA AGE: 86 SEX: F : 1935 ARRIVES VIA: Ambulance INFORMANT: Patient, EMS ED PROVIDER(S): Trino Ballard DO CHIEF COMPLAINT: Chest pain HPI: The patient is an 86-year-old female who presented to the emergency department for an evaluation of chest pain. The patient has a sacral wound that is being seen and evaluated at the wound care center. While she was there she complained of chest pain. 911 was called and the patient was sent to the emergency department. The patient has some degree of cognitive impairment and appears to be very forgetful at times. At this time she is denying having any chest pain. She denies having any nausea or vomiting. She denies having any fever or cough. The patient denies having any recent trauma. She states that she has been compliant with her outpatient medications. The patient did not have any fever. ROS: See above HPI for pertinent positives & negatives. A total of 10 systems reviewed and were otherwise negative. PAST MEDICAL HISTORY: See Below PAST SURGICAL HISTORY: See Below FAMILY HISTORY: See Below SOCIAL HISTORY: See Below HOME MEDICATIONS: See Below ALLERGIES: See Below VITALS: See Below PHYSICAL EXAMINATION: GENERAL: Patient is awake alert in no acute distress patient is resting comfortably and showing no signs of anxiety EYES: The conjunctivae are clear. The pupils are round and reactive. EARS, NOSE, MOUTH AND THROAT: The nose is without any evidence of any deformity. Mucous membranes are moist. Tongue is midline. NECK: The neck is nontender and supple. RESPIRATORY: Normal respiratory effort is noted there is no evidence of wheezing rhonchi or rales CARDIOVASCULAR: Regular rate and rhythm noted there no murmurs rubs or gallops normal S1 normal S2. GASTROINTESTINAL: The abdomen is soft and nondistended. There is right upper quadrant tenderness to palpation but no guarding rigidity. MUSCULOSKELETAL/EXTREMITIES: There is no evidence of gross deformity full range of motion is noted in the hips and shoulders. SKIN: There is no obvious evidence of any rash. There are no petechiae, pallor or cyanosis noted. NEUROLOGIC: Patient is awake alert and oriented to person place but not time or situation. MEDICAL DECISION MAKING: The patient is an 86-year-old female who presented to the emergency department for an evaluation of chest pain. The patient on physical exam was found to have right upper quadrant abdominal pain. She had an abdominal pain work-up which included CT of the abdomen and pelvis. This appeared to be consistent with ductal dilatation. The patient does have some underlying dementia. It is not easy to obtain a history from the patient. I discussed the patient's laboratory and radiographic studies with her son. At this time he would prefer the patient had continued inpatient work-up to determine if there was an underlying issue with her previous cholecystectomy. For this reason I discussed her case with the on-call [facility] hospitalist. Triage Nursing notes reviewed. Prior medical records reviewed Vital Signs: reviewed and remarkable for no significant abnormalities Differential diagnosis: Cardiac ischemia, aortic dissection, pulmonary embolism, pneumothorax, pneumonia, pericarditis, myocarditis, esophageal rupture, GERD, cholecystitis, pancreatitis, musculoskeletal, as well as other pathologies. ER treatment provided: See below Diagnostics interpreted by me: ECG: EKG was obtained in the emergency department. My interpretation is normal sinus rhythm at 73 bpm. There is no ectopy. Nonspecific T wave abnormalities were noted in the anterior and low lateral leads. There is also ST segment depression noted in the anterior and low lateral leads. This was compared to a tracing from December 15, 2021. No changes were noted. Cardiac Monitoring: An order was placed for continuous cardiac monitoring. The monitor shows a rate of 65 bpm with sinus rhythm. Laboratory studies: As stated above and show below. Imaging studies: See below Consultation(s): I discussed this case with Dr. Higu[facility] Past Med/Surg History Medical History Anemia Chronic SI joint pain Cognitive impairment Dementia Depression Encephalopathy Hx (entered from remote 2019 shelter records) Gait instability Gastroesophageal reflux History of respiratory failure Hx (entered from remote 2019 shelter records) Hx pulmonary embolism Hx (entered from remote 2019 shelter records) Hyperlipidemia Lumbar facet joint syndrome Paroxysmal atrial fibrillation Developed intraoperatively on 06/15/2019. Converted to NSR after dilt ggt and treatment of sepsis Sepsis 2018 (pyelonephritis with obstructing calculus) Spinal stenosis, lumbar region without neurogenic claudication Type 2 diabetes mellitus Wounds, multiple Stage III pressure ulcer of sacral region, Open R/L lower leg wounds Follows with [facility] wound clinic Surgical History H/O cystoscopy Cyst with L stent (06/15/2019) at [facility]. MAC. Patient given insulin for hyperglycemia and metoprolol and cardizem intraop. Cysto/stent (12/11/21): MAC at [facility]. No issues noted per post-op anesthesia progress note. H/O: hysterectomy History of appendectomy History of knee replacement procedure of left knee History of knee replacement procedure of right knee History of open reduction and internal fixation (ORIF) procedure L HUMEROUS Hx of cholecystectomy Hx of excision of epidermal inclusion cyst Hx of tonsillectomy Presence urogenital implant Family History Sister Diabetes Stroke Brother Diabetes Prostate cancer Father Lung disease Social History Smoking Status: Unknown if ever smoked Cigarettes Per Day: UTO; Hx Alcohol Use: No Hx Substance Use: No Preferred Language: Maltese Communication Ability: confused Communication Tools: Facial Expression, Physical Gestures and Lip Movement/Reading Visual Impairment: Limited Hearing Ability: Hard of Hearing Slots Manager Required: Yes Beliefs That Will Affect Care: None Current Living Situation: Skilled Nursing Current Living Situation Comment: Pt lives at [facility] current occupational status: retired How many Children do You have: 1 Feels Safe at Home: Declines to Answer caffeine: No Seatbelt Use: always Assistive Devices: Oxygen - at Night Allergies Allergies Allergy/AdvReac Type Severity Reaction Status Date / Time adhesive Allergy Intermediate SKIN Verified 04/18/22 13:06 BLISTERS tetanus toxoid, adsorbed Allergy Mild SWELLING Verified 04/18/22 13:06 AT SITE codeine AdvReac Intermediate HEART Verified 04/18/22 13:06 PALPITATIONS (RECIEVED MORPHINE IV IN 2004 ADMIT) Home Meds Home Medications Medication Instructions Recorded Confirmed diclofenac sodium 1 % topical gel 4 g topical DAILY PRN PAIN R KNEE 05/05/21 04/18/22 acetaminophen 325 mg tablet 650 mg PO TID Pain management 09/01/21 04/18/22 acetaminophen 325 mg tablet 650 mg PO Q4 PRN Fever Or Pain 09/27/21 04/18/22 insulin glargine 100 unit/mL (3 12 unit SC HS 09/27/21 04/18/22 mL) subcutaneous pen (Lantus Solostar U-100 Insulin) carvedilol 3.125 mg tablet (Coreg) 3.125 mg PO BID 12/11/21 04/18/22 cyanocobalamin (vitamin B-12) 1,000 mcg PO QAM 12/11/21 04/18/22 1,000 mcg capsule insulin aspart U-100 100 unit/mL 1 sliding scale dose subcut 12/11/21 04/18/22 subcutaneous cartridge (Novolog USEASDIRECTD PenFill U-100 Insulin aspart) ondansetron 4 mg disintegrating 4 mg PO Q6H PRN Nausea And Vomiting 12/11/21 04/18/22 tablet pantoprazole 40 mg granules 40 mg PO BID Duodenal Ulcers 12/11/21 04/18/22 delayed-release for susp in packet polyethylene glycol 3350 17 17 g PO Q24H PRN Constipation 12/11/21 04/18/22 gram/dose oral powder (Miralax) lidocaine HCl 4 % topical cream 1 applic topical QID 04/18/22 04/18/22 menthol 0.44 %-zinc oxide 20.6 % 1 applic topical BID 04/18/22 04/18/22 topical ointment (Calmoseptine) potassium chloride 20 mEq 20 meq PO DAILY 04/18/22 04/18/22 tablet,extended release(part/cryst) tramadol 50 mg tablet 50 mg PO Q4 PRN pain 04/18/22 04/18/22 moderate-severe tramadol 50 mg tablet 50 mg PO TID 04/18/22 04/18/22 Previous Rx's Medication Instructions Recorded incontinence pad, liner, disp #168 ea 08/11/19 (Overnight Pad For Women) pen needle, diabetic, safety 30 #100 ea 06/28/20 gauge x 1/3" (Novofine Autocover) nystatin 100,000 unit/gram topical 1 applic topical BID PRN rash #60 09/27/20 powder grams blood sugar diagnostic (OneTouch #200 ea 11/14/20 Ultra Blue Test Strip) pen needle,diabetic dual safty 30 #200 ea 11/14/20 gauge x 3/16" (BD AutoShield Duo Pen Needle) cholecalciferol (vitamin D3) 50 2,000 unit PO QAM #30 caps 05/29/21 mcg (2,000 unit) capsule donepezil 10 mg tablet (Aricept) 10 mg PO HS #90 tabs 05/29/21 simvastatin 20 mg tablet 20 mg PO HS #90 tabs 05/29/21 prednisone 20 mg tablet 20 mg PO QAM #90 tabs 07/10/21 lancets 30 gauge (ReadyLance #200 ea 07/11/21 Safety Lancets) Results & Data (ED) Vital Signs Vital Signs - 24 hr 04/18/22 13:58 04/18/22 13:58 04/18/22 13:58 Temperature 36.6 C Temperature Source Oral Pulse Rate 69 Pulse Rate [Apical] 69 Pulse Rhythm Regular Pulse Strength Normal Respiratory Rate 12 12 Respiratory Effort / Characteristics Non-Labored Respiratory Depth Normal Respiratory Pattern Regular Blood Pressure 138/72 Blood Pressure [Left Arm] 138/73 Blood Pressure Mean 94 Blood Pressure Mean [Left Arm] 94 Blood Pressure Position [Left Arm] Pulse Oximetry 97 98 Oxygen Delivery Method Room Air Room Air Room Air Oxygen Flow Rate 98 Sepsis Recent Fever Within 48 Hours No Sepsis New/Unexplained Change in Mental Status N/A Sepsis Action Taken by Nursing No Action Required 04/18/22 13:58 04/18/22 15:44 04/18/22 17:00 Temperature Temperature Source Pulse Rate 69 Pulse Rate [Apical] 72 66 Pulse Rhythm Pulse Strength Respiratory Rate 12 20 18 Respiratory Effort / Characteristics Non-Labored Spontaneous Non-Labored Spontaneous Respiratory Depth Normal Normal Respiratory Pattern Regular Regular Blood Pressure Blood Pressure [Left Arm] 138/73 138/73 Blood Pressure Mean Blood Pressure Mean [Left Arm] 94 94 Blood Pressure Position [Left Arm] Sitting Sitting Pulse Oximetry 98 97 96 Oxygen Delivery Method Room Air Room Air Room Air Oxygen Flow Rate Sepsis Recent Fever Within 48 Hours Sepsis New/Unexplained Change in Mental Status Sepsis Action Taken by Nursing 04/18/22 18:41 04/18/22 20:15 Temperature Temperature Source Pulse Rate 72 Pulse Rate [Apical] 65 Pulse Rhythm Pulse Strength Respiratory Rate 18 Respiratory Effort / Characteristics Non-Labored Spontaneous Respiratory Depth Normal Respiratory Pattern Regular Blood Pressure Blood Pressure [Left Arm] 115/53 L Blood Pressure Mean Blood Pressure Mean [Left Arm] 73 Blood Pressure Position [Left Arm] Lying Pulse Oximetry 94 Oxygen Delivery Method Room Air Oxygen Flow Rate Sepsis Recent Fever Within 48 Hours Sepsis New/Unexplained Change in Mental Status Sepsis Action Taken by Skilled Nursing Medications Current Medication List: was personally reviewed by me Laboratory Data Attestation: I reviewed the patient's lab results. Result diagrams: 04/19/22 07:11 04/19/22 07:11 Lab Results 04/18/22 04/18/22 04/18/22 Range/Units 14:08 14:08 14:08 WBC 9.68 (4.8-10.8) K/ul RBC 4.48 (3.93-5.22) M/uL Hgb 14.2 (12.0-16.0) g/dl Hct 44.5 (34.1-44.9) % MCV 99.3 (80.0-100.0) fL MCH 31.7 (25.0-34.0) pg MCHC 31.9 L (32.0-36.0) g/dL RDW Std Deviation 51.8 H (36.4-46.3) fL RDW Coeff of Junie 14.2 (11.5-14.5) % Plt Count 219 (130-400) K/uL MPV 10.1 (9.4-12.3) fL Immature Gran % (Auto) 0.2 % Neut % (Auto) 58.1 % Lymph % (Auto) 28.9 % [place] % (Auto) 8.9 % Eos % (Auto) 3.5 % Baso % (Auto) 0.4 % Neut # (Auto) 5.62 (1.4-6.5) K/uL Lymph # (Auto) 2.80 (1.2-3.4) K/uL [place] # (Auto) 0.86 H (0.24-0.82) K/uL Eos # (Auto) 0.34 (0-0.50) K/uL Baso # (Auto) 0.04 (0-0.2) K/uL Immature Gran # (Auto) 0.02 (0.00-0.02) K/uL PT 10.7 (9.0-12.0) Seconds INR 1.0 (0.9-1.1) APTT 25.4 (21.0-31.0) Seconds PTT Ratio 0.9 Sodium 140 (136-145) mmol/L Potassium 4.0 (3.5-5.1) mmol/L Chloride 106 (98-107) mmol/L Carbon Dioxide 30 (21-32) mmol/L Anion Gap 4 (3-11) BUN 39 H (6-23) mg/dl Creatinine 0.62 (0.6-1.2) mg/dl Est Cr Clr Drug Dosing Not Reportable Est GFR ( Amer) 95.3 ml/min Est GFR (Non-Af Amer) 82.2 ml/min BUN/Creatinine Ratio 62.9 H (10-20) Glucose 291 H (70-99(Fasting)) mg/dl POC Glucose (70-99) mg/dl Calcium 10.2 H (8.5-10.1) mg/dl Total Bilirubin 0.5 (0.2-1.0) mg/dl AST 14 (13-39) U/L ALT 14 (7-52) U/L Alkaline Phosphatase 48 (34-104) U/L Troponin I High Sens 15.8 H D (0-14) pg/ml Total Protein 5.9 L (6.0-8.3) gm/dl Albumin 3.2 L (3.4-5.0) gm/dl Globulin 2.7 (2.5-4.0) gm/dl Albumin/Globulin Ratio 1.2 (0.9-2) Lipase 43 (11-82) U/L SARS-CoV-2, RNA, NAAT (NEGATIVE) 04/18/22 04/18/22 Range/Units 14:17 20:09 WBC (4.8-10.8) K/ul RBC (3.93-5.22) M/uL Hgb (12.0-16.0) g/dl Hct (34.1-44.9) % MCV (80.0-100.0) fL MCH (25.0-34.0) pg MCHC (32.0-36.0) g/dL RDW Std Deviation (36.4-46.3) fL RDW Coeff of Junie (11.5-14.5) % Plt Count (130-400) K/uL MPV (9.4-12.3) fL Immature Gran % (Auto) % Neut % (Auto) % Lymph % (Auto) % [place] % (Auto) % Eos % (Auto) % Baso % (Auto) % Neut # (Auto) (1.4-6.5) K/uL Lymph # (Auto) (1.2-3.4) K/uL [place] # (Auto) (0.24-0.82) K/uL Eos # (Auto) (0-0.50) K/uL Baso # (Auto) (0-0.2) K/uL Immature Gran # (Auto) (0.00-0.02) K/uL PT (9.0-12.0) Seconds INR (0.9-1.1) APTT (21.0-31.0) Seconds PTT Ratio Sodium (136-145) mmol/L Potassium (3.5-5.1) mmol/L Chloride (98-107) mmol/L Carbon Dioxide (21-32) mmol/L Anion Gap (3-11) BUN (6-23) mg/dl Creatinine (0.6-1.2) mg/dl Est Cr Clr Drug Dosing Est GFR ( Amer) ml/min Est GFR (Non-Af Amer) ml/min BUN/Creatinine Ratio (10-20) Glucose (70-99(Fasting)) mg/dl POC Glucose 133 H (70-99) mg/dl Calcium (8.5-10.1) mg/dl Total Bilirubin (0.2-1.0) mg/dl AST (13-39) U/L ALT (7-52) U/L Alkaline Phosphatase (34-104) U/L Troponin I High Sens (0-14) pg/ml Total Protein (6.0-8.3) gm/dl Albumin (3.4-5.0) gm/dl Globulin (2.5-4.0) gm/dl Albumin/Globulin Ratio (0.9-2) Lipase (11-82) U/L SARS-CoV-2, RNA, NAAT NEGATIVE (NEGATIVE) Administered Medications Acetaminophen (Acetaminophen 325 Mg Tab) 650 mg PO TID PHOEBE Stop: 05/18/22 20:59 Last Admin: 04/18/22 22:39 Dose: 650 mg Documented By: KS Carvedilol (Carvedilol 3.125 Mg Tab) 3.125 mg PO BID PHOEBE Stop: 05/18/22 20:59 Last Admin: 04/18/22 22:39 Dose: 3.125 mg Documented By: ROBINSON Donepezil HCl (Donepezil Hcl 10 Mg Tab) 10 mg PO HS PHOEBE Stop: 05/18/22 20:59 Last Admin: 04/18/22 22:39 Dose: 10 mg Documented By: KS Insulin Aspart (Insulin Aspart Per Unit) 0 units SC ACHS PHOEBE Stop: 05/18/22 20:59 Last Admin: 04/18/22 22:40 Dose: Not Given Documented By: KS Co-signed By: CLC Insulin Glargine (Lantus Per Unit Charge) 12 units SQ BID PHOEBE Stop: 05/18/22 20:59 Last Admin: 04/18/22 22:40 Dose: 12 units Documented By: KS Co-signed By: CLC Simvastatin (Simvastatin 20 Mg Tab) 20 mg PO HS PHOEBE Stop: 05/18/22 20:59 Last Admin: 04/18/22 22:39 Dose: 20 mg Documented By: KS Discontinued Medications Aspirin (Aspirin Chew 324 Mg) 324 mg PO NOW STA Stop: 04/18/22 13:58 Last Admin: 04/18/22 14:22 Dose: Not Given Documented By: ROYAL Sodium Chloride (Nss 1000ml) 500 mls @ 999 mls/hr IV .Q31M ONE Stop: 04/18/22 15:37 Last Infusion: 04/18/22 16:46 Dose: 0 mls/hr Documented By: Admin: 04/18/22 16:11 Dose: 999 mls/hr Documented By: NAYA Ioversol (Ioversol 350 Mg 100ml Prefilled Syringe) 93 ml IV ONCE ONE Stop: 04/18/22 15:51 Last Admin: 04/18/22 15:52 Dose: 93 ml Documented By: SMITA Imaging Data Radiologist's Impression: KUB X-Ray 04/18/22 13:57 XR KUB/Abdomen 1 view CLINICAL HISTORY: CP TECHNIQUE: 1 view of the abdomen was obtained. Comparison: Comparison is made to CT abdomen pelvis 12/11/2021 FINDINGS: Surgical clips are in the right upper quadrant. Right pelvic calcifications are seen compatible with previously noted phleboliths. Degenerative changes are seen in the visualized skeleton. The bowel gas pattern is nonobstructive. A moderate amount of stool is noted within the large bowel. IMPRESSION: Nonobstructive bowel gas pattern. ACT 112: Negative or not required by law. Electronically signed by: Frandy Christie M.D. 04/18/2022 2:31 PM Chest X-Ray 04/18/22 13:58 XR chest 1V portable CLINICAL HISTORY: Atypical chest pain. COMPARISON STUDY: Chest radiograph December 18, 2021. FINDINGS: Patient is rotated. Mild left basilar opacity is present. There is no pneumothorax or pleural effusion. Cardiac size is stable. Mediastinal contours are normal. There is no evidence for pulmonary edema. Left humeral internal fixation is partially imaged. IMPRESSION: Mild left basilar opacity. This could reflect a focus of pneumonia or atelectasis. Radiographic follow-up to ensure resolution is recommended. ACT 112: Negative or not required by law. Electronically signed by: Enrrique Johns M.D. 04/18/2022 2:48 PM Abdomen/Pelvis CT 04/18/22 15:07 CT abd pelvis IV con only CLINICAL HISTORY: right sided painm confused TECHNIQUE: Helical axial images of the abdomen and pelvis were obtained and displayed. Automated dose lowering techniques and/or adjustment according to patient size were utilized for this exam. This exam was performed with intraven ous contrast. CT DOSE: 619.48 mGycm COMPARISON: Comparison is made to CT abdomen pelvis 12/11/2021 FINDINGS: Lower chest: Biatrial enlargement and cardiomegaly is noted. Atelectasis is noted. Liver: Unremarkable. No focal lesions are seen. Gallbladder and biliary tree: Patient is status post cholecystectomy. The common bile duct is enlarged measuring up to 2 cm in diameter, increased from prior exam. Pancreas: Unremarkable, no focal lesions. Spleen: Unremarkable. Adrenals: Unremarkable. Kidneys and ureters: Bilateral renal cysts are seen. Nonobstructive stones are seen. Bladder: Limited evaluation due to underdistention. Reproductive organs: Patient is status post hysterectomy. Bowel: A large stool ball is seen in the rectum with surrounding a concerning for extravasation. No definite evidence of stercoral colitis. Lymph nodes Retroperitoneal: Unremarkable. Pelvic: Unremarkable. Mesenteric: Unremarkable. Peritoneum: Normal. Vessels: Phleboliths are seen. Abdominal wall: Bilateral fat-containing inguinal hernias are seen. Bones: Degenerative changes in the visualized spine. IMPRESSION: 1. Markedly enlarged common bile duct compared to prior exam. Although some physiologic enlargement is to be expected in the setting of cholecystectomy, a radiolucent choledochal stone cannot be excluded. 2. Inspissated stool in the rectum. 3. Obstructive stones are seen in the kidneys. ACT 112: Negative or not required by law. Electronically signed by: Frandy Christie M.D. 04/18/2022 4:19 PM Discharge Plan Visit Data Chief Complaint: Cardiac Assessment ED Provider: Trino Ballard Discharge Problem: Chest pain, Abdominal pain, acute, right upper quadrant, Back pain, Abnormal computed tomography of abdomen and pelvis Patient Disposition: Admitted As Inpatient Discharge Instructions Interventions: ED Discharge Assessment Last Done: 04/18/22 19:38 : Chest pain Qualifiers: Chest pain type: unspecified Qualified Code(s): R07.9 - Chest pain, unspecified Back pain Qualifiers: Back pain location: back pain in unspecified location Chronicity: acute Back pain laterality: unspecified Qualified Code(s): M54.9 - Dorsalgia, unspecified
[2022-04-18 14:30] LABS: Basophils # (auto) 0.04 K/uL (0-0.2); Basophils % (auto) 0.4 %; Eosinophils # (auto) 0.34 K/uL (0-0.50); Eosinophils % (auto) 3.5 %; Hematocrit (blood only) 44.5 % (34.1-44.9); Hemoglobin 14.2 g/dl (12.0-16.0); Immature Granulocytes # (auto) 0.02 K/uL (0.00-0.02); Immature Granulocytes % (auto) 0.2 %; Lymphocytes % (auto) 28.9 %; Mean Corpuscular Hemoglobin 31.7 pg (25.0-34.0); Mean Corpuscular Hgb Conc 31.9 g/dL (32.0-36.0); Mean Corpuscular Volume 99.3 fL (80.0-100.0); Mean Platelet Volume 10.1 fL (9.4-12.3); Monocytes # (auto) 0.86 K/uL (0.24-0.82); Monocytes % (auto) 8.9 %; Neutrophils # (auto) 5.62 K/uL (1.4-6.5); Neutrophils % (auto) 58.1 %; Platelet Count 219 K/uL (130-400); RDW Coefficient of Variation 14.2 % (11.5-14.5); RDW Standard Deviation 51.8 fL (36.4-46.3); Red Blood Count 4.48 M/uL (3.93-5.22); White Blood Count 9.68 K/ul (4.8-10.8)
--- NOTE | 2022-04-18 14:33 | XRay Report ---
XR KUB/Abdomen 1 view CLINICAL HISTORY: CP TECHNIQUE: 1 view of the abdomen was obtained. Comparison: Comparison is made to CT abdomen pelvis 12/11/2021 FINDINGS: Surgical clips are in the right upper quadrant. Right pelvic calcifications are seen compatible with previously noted phleboliths. Degenerative changes are seen in the visualized skeleton. The bowel gas pattern is nonobstructive. A moderate amount of stool is noted within the large bowel. IMPRESSION: Nonobstructive bowel gas pattern. ACT 112: Negative or not required by law. Electronically signed by: Frandy Christie M.D. 04/18/2022 2:31 PM
[2022-04-18 14:43] LABS: Partial Thromboplastin Ratio 0.9; Partial Thromboplastin Time 25.4 Seconds (21.0-31.0); Prothrombin Time 10.7 Seconds (9.0-12.0)
--- NOTE | 2022-04-18 14:47 | Electrocardiogram Report ---
Test Reason : Blood Pressure : / mmHG Vent. Rate : 073 BPM Atrial Rate : 073 BPM P-R Int : 140 ms QRS Dur : 100 ms QT Int : 416 ms P-R-T Axes : 051 -67 110 degrees QTc Int : 458 ms Normal sinus rhythm Incomplete right bundle branch block Left anterior fascicular block Abnormal ECG When compared with ECG of 15-DEC-2021 09:57, Premature supraventricular complexes are no longer Present Confirmed by Trino Mccormack ([id number]) on 04/18/2022 2:47:07 PM Referred By: Confirmed By:Trino Mccormack
--- NOTE | 2022-04-18 14:50 | XRay Report ---
XR chest 1V portable CLINICAL HISTORY: Atypical chest pain. COMPARISON STUDY: Chest radiograph December 18, 2021. FINDINGS: Patient is rotated. Mild left basilar opacity is present. There is no pneumothorax or pleur al effusion. Cardiac size is stable. Mediastinal contours are normal. There is no evidence for pulmon librado edema. Left humeral internal fixation is partially imaged. IMPRESSION: Mild left basilar opacity. This could reflect a focus of pneumonia or atelectasis. Radiog raphic follow-up to ensure resolution is recommended. ACT 112: Negative or not required by law. Electronically signed by: Enrrique Johns M.D. 04/18/2022 2:48 PM
[2022-04-18 14:54] LABS: Troponin I High Sensitivity 15.8 pg/ml (0-14)
[2022-04-18 14:57] LABS: Alanine Aminotransferase 14 U/L (7-52); Albumin Globulin Ratio 1.2 (0.9-2); Albumin Level 3.2 gm/dl (3.4-5.0); Alkaline Phosphatase 48 U/L (34-104); Anion Gap 4 (3-11); Aspartate Aminotransferase 14 U/L (13-39); BUN Creatinine Ratio 62.9 (10-20); Bilirubin,Total 0.5 mg/dl (0.2-1.0); Blood Urea Nitrogen 39 mg/dl (6-23); Calcium 10.2 mg/dl (8.5-10.1); Carbon Dioxide 30 mmol/L (21-32); Chloride 106 mmol/L (98-107); Est GFR (African American) 95.3 ml/min; Est GFR (Non-African American) 82.2 ml/min; Globulin 2.7 gm/dl (2.5-4.0); Glucose 291 mg/dl (70-99(Fasting)); Lipase 43 U/L (11-82); Sodium 140 mmol/L (136-145); Total Protein 5.9 gm/dl (6.0-8.3)
[2022-04-18] MEDS ORDERED: SODIUM CHLORIDE 0.9% 1000ML 500 ML IV ONE (15:07)
[2022-04-18] MEDS ORDERED: IOVERSOL 350 MG 100mL Prefilled Syringe IV ONE (15:50)
--- NOTE | 2022-04-18 16:21 | CT Scan Report ---
CT abd pelvis IV con only CLINICAL HISTORY: right sided painm confused TECHNIQUE: Helical axial images of the abdomen and pelvis were obtained and displayed. Automated dose lowering techniques and/or adjustment according to patient size were utilized for this exam. This e xam was performed with intravenous contrast. CT DOSE: 619.48 mGycm COMPARISON: Comparison is made to CT abdomen pelvis 12/11/2021 FINDINGS: Lower chest: Biatrial enlargement and cardiomegaly is noted. Atelectasis is noted. Liver: Unremarkable. No focal lesions are seen. Gallbladder and biliary tree: Patient is status post cholecystectomy. The common bile duct is enlarge d measuring up to 2 cm in diameter, increased from prior exam. Pancreas: Unremarkable, no focal lesions. Spleen: Unremarkable. Adrenals: Unremarkable. Kidneys and ureters: Bilateral renal cysts are seen. Nonobstructive stones are seen. Bladder: Limited evaluation due to underdistention. Reproductive organs: Patient is status post hysterectomy. Bowel: A large stool ball is seen in the rectum with surrounding a concerning for extravasation. No d efinite evidence of stercoral colitis. Lymph nodes Retroperitoneal: Unremarkable. Pelvic: Unremarkable. Mesenteric: Unremarkable. Peritoneum: Normal. Vessels: Phleboliths are seen. Abdominal wall: Bilateral fat-containing inguinal hernias are seen. Bones: Degenerative changes in the visualized spine. IMPRESSION: 1. Markedly enlarged common bile duct compared to prior exam. Although some physiologic enlargement is to be expected in the setting of cholecystectomy, a radiolucent choledochal stone cannot be exclud ed. 2. Inspissated stool in the rectum. 3. Obstructive stones are seen in the kidneys. ACT 112: Negative or not required by law. Electronically signed by: Frandy Christie M.D. 04/18/2022 4:19 PM
--- NOTE | 2022-04-18 17:20 | History & Physical Report ---
Date of Service April 18, 2022 Assessment & Plan (1) Chest pain: Plan: Abdominal pain radiating to chest Patient history/physical limited by dementia CTA/P: Markedly enlarged common bile duct compared to prior exam. S/p cholecystectomy, but notable increase compared to prior imaging. Nonobstructive renal stones. CXR: NAF No leukocytosis Sodium/potassium normal Creatinine with normal baseline, 0.61 admission High-sensitivity troponin 15.8 AST/ALT/alk phos normal, T bili normal COVID-negative Lipase normal Pain improved by bedside, given prominent dilation and right upper quadrant pain MRCP for better evaluation for obstructive/radiolucent stone pended Troponin trace elevation, suspect demand. Trended overnight. No chest pain at time of evaluation. No acute EKG changes Fungal dermatitis Continue fluconazole Hypertension Continue carvedilol Hyperlipidemia Continue statin Type 2 diabetes mellitus Pharm consulted for assistance glycemic management, hold home medications Glucose checks AC/at bedtime Goal BSG [id number] Paroxysmal A. fib Echo 08/29: LVEF 60-65%, no wall motion abnormalities. No valvular disease No history of CAD Continue Coreg Anticoagulation deferred due to dementia, high risk of fall, and prior GI bleed Rate controlled, no acute management at this time Spinal stenosis No acute change, continue Tylenol as needed GERD PPI daily PMR/joint pain No acute change, continue Tylenol Continue prednisone daily Chronic sacral ulcer, right lower extremity healing wound Continue wound care. No acute cellulitis VTE prophylaxis: Deferred due to GI bleeds, SCDs CODE STATUS: DNR/DNI Disposition: Medical telemetry while pending cardiac R/ (2) Abdominal pain: (3) Gastroesophageal reflux: (4) Fungal dermatitis: (5) B12 deficiency: (6) Anemia: (7) Stage III pressure ulcer of sacral region: (8) Type 2 diabetes mellitus: History of Present Illness Primary Care Provider: Genny Montoya at [facility] chest pain into back while at wound care center. Demented at baseline with no complaints. RUQ pain on exam. CT with dilated interhepatic ducts, history of cholecystectomy. Discussed with son by ER, son would want infectious/stone eval overnight and discussion based on results. History is significantly limited by dementia, patient is pleasant but not oriented to place or year or season. Is oriented to name. Is not sure why she is in the hospital, denies chest pain/chest pressure/abdominal pain at bedside assessment. Denies any symptoms out of the ordinary for her. On physical exam does wince and grimace to right upper quadrant palpation more than other abdominal exam but "is not sure "if she is wincing from pain. Discussed w/ son. Knows she had chest pain while at wound clinic which resolved by ER. Dementia limits exam. Does not think she was having any new symptoms in days leading up to wound care. No recent fever/chills/sweats to his knowledge, although note she gets most of her care at [facility]. Confirms DNR/DNI status Medical History: ReviewedIn EMR Medications: Reviewed In EMR Surgical History: Reviewed In EMR Allergies: Reviewed In EMR Social History: In EMR Code Status: DNR/DNI Allergies Allergy/AdvReac Type Severity Reaction Status Date / Time adhesive Allergy Intermediate SKIN Verified 04/18/22 13:06 BLISTERS tetanus toxoid, adsorbed Allergy Mild SWELLING Verified 04/18/22 13:06 AT SITE codeine AdvReac Intermediate HEART Verified 04/18/22 13:06 PALPITATIONS (RECIEVED MORPHINE IV IN 2004 ADMIT) Home Medications Medication Instructions Recorded Confirmed Type incontinence pad, liner, disp #168 ea 08/11/19 04/18/22 Rx (Overnight Pad For Women) pen needle, diabetic, safety 30 #100 ea 06/28/20 04/18/22 Rx gauge x 1/3" (Novofine Autocover) nystatin 100,000 unit/gram topical 1 applic topical BID PRN rash #60 09/27/20 04/18/22 Rx powder grams blood sugar diagnostic (OneTouch #200 ea 11/14/20 04/18/22 Rx Ultra Blue Test Strip) pen needle,diabetic dual safty 30 #200 ea 11/14/20 04/18/22 Rx gauge x 3/16" (BD AutoShield Duo Pen Needle) diclofenac sodium 1 % topical gel 4 g topical DAILY PRN PAIN R KNEE 05/05/21 04/18/22 History cholecalciferol (vitamin D3) 50 2,000 unit PO QAM #30 caps 05/29/21 04/18/22 Rx mcg (2,000 unit) capsule donepezil 10 mg tablet (Aricept) 10 mg PO HS #90 tabs 05/29/21 04/18/22 Rx simvastatin 20 mg tablet 20 mg PO HS #90 tabs 05/29/21 04/18/22 Rx prednisone 20 mg tablet 20 mg PO QAM #90 tabs 07/10/21 04/18/22 Rx lancets 30 gauge (ReadyLance #200 ea 07/11/21 04/18/22 Rx Safety Lancets) acetaminophen 325 mg tablet 650 mg PO TID Pain management 09/01/21 04/18/22 History acetaminophen 325 mg tablet 650 mg PO Q4 PRN Fever Or Pain 09/27/21 04/18/22 History insulin glargine 100 unit/mL (3 12 unit SC BID 09/27/21 04/18/22 History mL) subcutaneous pen (Lantus Solostar U-100 Insulin) carvedilol 3.125 mg tablet (Coreg) 3.125 mg PO BID 12/11/21 04/18/22 History cyanocobalamin (vitamin B-12) 1,000 mcg PO QAM 12/11/21 04/18/22 History 1,000 mcg capsule docusate sodium 100 mg capsule 100 mg PO DAILY PRN Constipation 12/11/21 04/18/22 History (Colace) insulin aspart U-100 100 unit/mL 1 sliding scale dose subcut 12/11/21 04/18/22 History subcutaneous cartridge (Novolog USEASDIRECTD PenFill U-100 Insulin aspart) ondansetron 4 mg disintegrating 4 mg PO Q6H PRN Nausea And Vomiting 12/11/21 04/18/22 History tablet pantoprazole 40 mg granules 40 mg PO BID Duodenal Ulcers 12/11/21 04/18/22 His tory delayed-release for susp in packet polyethylene glycol 3350 17 17 g PO Q24H PRN Constipation 12/11/21 04/18/22 History gram/dose oral powder (Miralax) zinc oxide 20 % topical ointment 1 applic topical QS 12/11/21 04/18/22 History zinc oxide 40 % topical ointment 1 applic topical UD PRN 12/11/21 04/18/22 History Incontinence fluconazole 100 mg tablet 200 mg PO QAM #4 tabs 12/20/21 04/18/22 Rx thiamine HCl (vitamin B1) 100 mg 100 mg PO QAM #30 tabs 12/20/21 04/18/22 Rx tablet arginine 7 gram-glutamine 7 1 ea PO BID 30 days #60 ea 02/15/22 03/23/22 Rx gram-calcium HMB 1.5 gram oral powder pack (Frank) potassium chloride 20 mEq 20 meq PO DAILY 04/18/22 04/18/22 History tablet,extended release(part/cryst) Past Med/Surg History Medical History Anemia Chronic SI joint pain Cognitive impairment Dementia Depression Encephalopathy Hx (entered from remote [facility]) Gait instability Gastroesophageal reflux History of respiratory failure Hx (entered from remote 2019 senior living records) Hx pulmonary embolism Hx (entered from remote 2019 senior living records) Hyperlipidemia Lumbar facet joint syndrome Paroxysmal atrial fibrillation Developed intraoperatively on 06/15/2019. Converted to NSR after dilt ggt and treatment of sepsis Sepsis 2018 (pyelonephritis with obstructing calculus) Spinal stenosis, lumbar region without neurogenic claudication Type 2 diabetes mellitus Wounds, multiple Stage III pressure ulcer of sacral region, Open R/L lower leg wounds Follows with [facility] [place] Surgical History H/O cystoscopy Cyst with L stent (06/15/2019) at [facility]. MAC. Patient given insulin for hyperglycemia and metoprolol and cardizem intraop. Cysto/stent (12/11/21): MAC at [facility]. No issues noted per post-op anesthesia progress note. H/O: hysterectomy History of appendectomy History of knee replacement procedure of left knee History of knee replacement procedure of right knee History of open reduction and internal fixation (ORIF) procedure L HUMEROUS Hx of cholecystectomy Hx of excision of epidermal inclusion cyst Hx of tonsillectomy Presence urogenital implant Family History Sister Diabetes Stroke Brother Diabetes Prostate cancer Father Lung disease Social History Smoking Status: Unknown if ever smoked Cigarettes Per Day: UTO; Hx Alcohol Use: No Hx Substance Use: No Preferred Language: Greek Communication Ability: Impaired Communication Tools: Facial Expression, Physical Gestures and Lip Movement/Reading Visual Impairment: Limited Hearing Ability: Hard of Hearing [employer] Required: Yes Beliefs That Will Affect Care: None Current Living Situation: Alf Current Living Situation Comment: From [facility] current occupational status: retired How many Children do You have: 1 Feels Safe at Home: Declines to Answer caffeine: No Seatbelt Use: always Assistive Devices: Oxygen - at Night Review of Systems Review of Systems: All systems reviewed & are unremarkable except as noted in Subjective Physical Exam Physical Exam: General: Oriented to name only. NAD. Cooperative. HEENT: Atraumatic, normocephalic. PERLAA. Pulm: CTAB A&P. -wheezes, -rales, -rhonchi. Symmetrical chest rise. No increased work of breathing. No respiratory distress. Cardiac: RRR, -mrg. Radial pulses intact and symmetrical. Abdominal: Nontender, nondistended, soft. BS present. Ext: Warm, dry. Skin: Stage III pressure ulcer of the sacrum. Right lower leg right knee dressed, C/D/I. Underneath dressing wound intact without spreading erythema/purulent discharge. Able to wiggle toes, sensation to soft touch intact bilaterally per patient Results & Data Results & Data ([facility]) Vital Signs (Past 12 Hours) Vital Signs Temp Pulse Pulse Resp BP BP Pulse Ox 04/18/22 15:44 72 20 138/73 97 04/18/22 13:58 69 12 98 04/18/22 13:58 69 12 138/73 98 04/18/22 13:58 04/18/22 13:58 36.6 C 69 12 138/72 97 O2 Del Method O2 Flow Rate 04/18/22 15:44 Room Air 04/18/22 13:58 Room Air 04/18/22 13:58 Room Air 04/18/22 13:58 Room Air 98 04/18/22 13:58 Room Air PG Care Time/CCT Total # of Minutes Spent Total Time Spent with Patient: Total time spent is greater than 50% in coordination of care (as documented) at patient's floor/unit and/or counseling patient: Coding Level of Care Code INT OBSERVATION CARE 50M LVL 2 Diagnoses Chest pain R07.9 Abdominal pain R10.9 Gastroesophageal reflux K21.9 Fungal dermatitis B36.9 B12 deficiency E53.8 Anemia D64.9 Stage III pressure ulcer of sacral region L89.153 Type 2 diabetes mellitus E11.9
[2022-04-18] MEDS ORDERED: GLUCAGON FOR INJ 1 MG VIAL SQ PRN (20:28)
[2022-04-18] MEDS ORDERED: GLUCOSE 40% GEL 15 GM TUBE PO PRN (20:28)
[2022-04-18] MEDS ORDERED: CARBOHYDRATES FOR HYPOGLYCEMIA PO PRN (20:28)
[2022-04-18] MEDS ORDERED: DEXTROSE 50% 50 ML SYRINGE IV PRN (20:28)
[2022-04-18] MEDS ORDERED: GLUCOSE 10 TAB/TUBE PO PRN (20:28)
[2022-04-18] MEDS: SIMVASTATIN 20 MG TAB PO SCH (22:39)
[2022-04-18] MEDS: carvediloL 3.125 MG TAB PO SCH (22:39)
[2022-04-18] MEDS: ACETAMINOPHEN 325 MG TAB PO SCH (22:39)
[2022-04-18] MEDS: DONEPEZIL HCL 10 MG TAB PO SCH (22:39)
[2022-04-18] MEDS: LANTUS PER UNIT CHARGE SQ SCH (22:40)
[2022-04-18] MEDS: INSULIN ASPART PER UNIT SC SCH (22:40)
[2022-04-18] MEDS ORDERED: INFLUENZA VACCINE HIGH DOSE PF 65+ 0.7 ML SYR IM ONE (23:13)
[2022-04-19 07:26] LABS: Basophils # (auto) 0.04 K/uL (0-0.2); Basophils % (auto) 0.4 %; Eosinophils # (auto) 0.35 K/uL (0-0.50); Eosinophils % (auto) 3.8 %; Hematocrit (blood only) 41.8 % (34.1-44.9); Hemoglobin 13.7 g/dl (12.0-16.0); Immature Granulocytes # (auto) 0.11 K/uL (0.00-0.02); Immature Granulocytes % (auto) 1.2 %; Lymphocytes # (auto) 3.19 K/uL (1.2-3.4); Lymphocytes % (auto) 34.4 %; Mean Corpuscular Hemoglobin 31.7 pg (25.0-34.0); Mean Corpuscular Hgb Conc 32.8 g/dL (32.0-36.0); Mean Corpuscular Volume 96.8 fL (80.0-100.0); Mean Platelet Volume 9.9 fL (9.4-12.3); Monocytes % (auto) 9.7 %; Neutrophils # (auto) 4.68 K/uL (1.4-6.5); Neutrophils % (auto) 50.5 %; Platelet Count 181 K/uL (130-400); Red Blood Count 4.32 M/uL (3.93-5.22); White Blood Count 9.27 K/ul (4.8-10.8)
[2022-04-19 07:51] LABS: BUN Creatinine Ratio 42.9 (10-20); Bilirubin Direct 0.1 mg/dl (0-0.2); Bilirubin,Total 0.8 mg/dl (0.2-1.0); Calcium 9.9 mg/dl (8.5-10.1); Est GFR (African American) 91.6 ml/min; Potassium 3.8 mmol/L (3.5-5.1); Total Protein 5.5 gm/dl (6.0-8.3)
[2022-04-19] MEDS: INSULIN ASPART PER UNIT SC SCH ×4 (08:55→21:32)
[2022-04-19] MEDS: carvediloL 3.125 MG TAB PO SCH ×2 (08:56→20:27)
[2022-04-19] MEDS: ACETAMINOPHEN 325 MG TAB PO SCH ×3 (08:56→20:28)
[2022-04-19] MEDS: predniSONE 20 MG TAB PO SCH (08:57)
[2022-04-19] MEDS: THIAMINE HCL 100 MG TAB PO SCH (08:57)
[2022-04-19] MEDS: LANTUS PER UNIT CHARGE SQ SCH (09:42)
[2022-04-19] MEDS ORDERED: haloperidoL 1 MG TAB PO ONE (09:56)
[2022-04-19] MEDS ORDERED: PANTOprazole 40 MG TAB PO SCH (10:00)
[2022-04-19] MEDS: SODIUM CHLORIDE 0.9% 1000ML 1,000 ML IV SCH ×2 (13:03→23:19)
[2022-04-19] MEDS: AMPICILLIN/SULBACTAM SOD 3,000 MG in 0.9 % SODIUM CHLORIDE 100 ML IV SCH ×3 (13:03→23:24)
[2022-04-19] MEDS: HYDROCORTISONE SOD 25 MG in SYRINGE 0 ML IV SCH ×2 (13:44→20:28)
--- NOTE | 2022-04-19 14:57 | XRay Report ---
XR tibia fibula RT 2V CLINICAL HISTORY: ?metal wires protruding thru skin on major COMPARISON: Right knee radiographs February 04, 2020. FINDINGS: Revision longstem constrained right knee arthroplasty is noted. Apparent cerclage wire is noted. The lateral aspect of the wire now protrudes through the skin, a new finding since radiographs of of February 04, 2020. Associated soft tissue gas along the proximal right tibia is noted. Lateral pro jection demonstrates apparent chronic erosion/old deformity of the proximal right tibia. Osseous appe arance is unchanged since radiographs of February 04, 2020. There is no contraindication to MRI on this e xam. IMPRESSION: 1. No contraindication to MRI within the right knee/tibia and fibula. 2. Postoperative findings, as described above. Interval protrusion of an apparent cerclage wire throu gh the skin with associated soft tissue gas adjacent to the proximal right tibia. Osseous appearance of the right tibia appears similar to radiographs of February 04, 2020. ACT 112: Negative or not required by law. Electronically signed by: Enrrique Johns M.D. 04/19/2022 2:56 PM
--- NOTE | 2022-04-19 17:56 | Magnetic Resonance Report ---
MR MRCP CLINICAL HISTORY: dilated CBD, hx tomi. ?radiolucent obstruction TECHNIQUE: Multiplanar multisequence MR images of the abdomen were obtained, as per MRCP protocol. . COMPARISON: Comparison is made to MRI abdomen pelvis 09/28/[address] abdomen pelvis 04/18/2022 FINDINGS: Exam is highly limited by patient motion. Lower chest: No acute abnormality Liver: Unremarkable. No focal lesions are seen. Gallbladder and biliary tree: Patient is status post cholecystectomy. The common bile duct is enlarge d measuring approximately 12 mm in diameter. This is minimally enlarged from prior exam. Susceptibili ty artifact is seen from cholecystectomy clips however no definite filling defects are seen in the du ct. Pancreas: Unremarkable, no focal lesions. Spleen: Unremarkable. Adrenals: Unremarkable. Kidneys and ureters: Renal cysts are seen. Bowel: Unremarkable. Lymph nodes Retroperitoneal: Unremarkable. Mesenteric: Unremarkable. Peritoneum: Normal Vessels: Unremarkable. Abdominal wall: Unremarkable. Bones: Degenerative changes in the visualized spine. IMPRESSION: Highly limited exam. Prominent common bile duct, which however appears less markedly dilated than on prior CT. No filling defect is seen to suggest choledocholithiasis. ACT 112: Negative or not required by law. Electronically signed by: Fradny Christie M.D. 04/19/2022 5:55 PM
[2022-04-19] MEDS: SIMVASTATIN 20 MG TAB PO SCH (20:27)
[2022-04-19] MEDS: DONEPEZIL HCL 10 MG TAB PO SCH (20:27)
[2022-04-19] MEDS: LANSOPRAZOLE 30 MG SOLTAB PO SCH (20:27)
[2022-04-20 04:10] LABS: Appearance Urine Cloudy (Clear); Bacteria Urine Automated Negative (Negative); Bilirubin Urine Negative (Negative); Blood Urine 2+ (Negative); Cast Urine Automated 0 /lpf (0-5); Color Urine Dark Yellow; Glucose Urine UA Negative (Negative); Ketones Urine 1+ (Negative); Leukocyte Esterase Urine 2+ (Negative); Nitrite Urine Positive (Negative); Protein Urine 1+ (Negative); Urobilinogen Urine Negative (Negative); WBC Urine Automated >30 /hpf (0-5); pH Urine 6.5 (4.5-7.5)
--- NOTE | 2022-04-20 05:01 | Hospitalist Progress Note ---
Date of Service April 19, 2022 Assessment & Plan (1) Chest pain: Plan: at time of admission it was uncertain if patient was having chest pain or abdominal pain. history was limited because of her severe, advanced dementia. troponins scantly elevated. doubt ACS. Given nonambulatory status I would be concerned about VTE as she does have h/o PE per records. Consider CTA chest - r/o PE. (2) Abdominal pain, acute, right upper quadrant: Plan: as in #1 above it was uncertain if patient was having cp or abdominal pain prior to admission. CT a/p without any pathology except for constipation as well as enlarged CBD up to 2cm in diameter. To that end MRCP was obtained -- MRCP did NOT showed any bile duct abnormalities, no filling defects, etc. Thus, choledocholithiasis not suspected. During my exam today she had no tenderness on exam. LFTs and lipase wnl. Monitor. (3) Encephalopathy acute: Plan: Suspect she has superimposed delirium on top of her advanced dementia. She is at risk of bacteremia in light of her right major exposed wires and wound. Check blood cultures. Check ua and urine cx (obtain via cath). Then start unasyn IV for empiric coverage. Procal noted to be normal. Check a crp in am. TSH 12/2021 wnl. 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 just seen by Dr Delonte Garcia, [facility], in early March the hardware in the right knee has failed there are exposed wires along the tibia shaft about mid-major she is followed by the wound care center for the latter I don't see any obvious cellulitis of the right knee or right major today Plan Derek - pt's son - updated by phone this evening Admission and Anticipated Discharge Date Admission Date: April 18, 2022 Subjective during the visit the patient would not wake up - very lethargic nursing staff report no appetite, and at times periods of agitation due to lethargy unable to obtain ROS or any history nursing staff concerned about right major - exposed wire present, covered w/ aquacel/optifoam Review of Systems Review of Systems: Unobtainable due to cognitive status Physical Exam Physical Exam: gen - lethargic, NAD mouth - MM dry neck - no JVD heart - RRR, s1 s2, no murmur lungs - CTA b/l abd - soft NT ND BS+; no HSM ext - no ankle edema, pulses 2+ b/l skin - right major - open wound mid-major, exposed wires x 2 (sticking out of skin by about 3-4mm), no drainage, no cellulitis Results & Data Results & Data ([facility]) Vital Signs (Past 12 Hours) Vital Signs Temp Pulse Pulse Resp BP Pulse Ox O2 Del Method 04/19/22 11:55 36.8 C 59 L 18 112/53 L 90 Room Air 04/19/22 07:00 62 04/19/22 08:10 36.4 C L 87 18 146/77 H 96 Room Air 04/19/22 04:09 36.8 C 64 16 114/55 L 95 Room Air 04/19/22 00:32 37.0 C 74 16 117/50 L 94 Room Air Laboratory Results Laboratory Results - last 24 hr 04/19/22 04/19/22 04/19/22 07:11 07:11 07:11 WBC 9.27 RBC 4.32 Hgb 13.7 Hct 41.8 MCV 96.8 MCH 31.7 MCHC 32.8 RDW Std Deviation 50.0 H RDW Coeff of Junie 14.0 Plt Count 181 MPV 9.9 Immature Gran % (Auto) 1.2 Neut % (Auto) 50.5 Lymph % (Auto) 34.4 [place] % (Auto) 9.7 Eos % (Auto) 3.8 Baso % (Auto) 0.4 Neut # (Auto) 4.68 Lymph # (Auto) 3.19 [place] # (Auto) 0.90 H Eos # (Auto) 0.35 Baso # (Auto) 0.04 Immature Gran # (Auto) 0.11 H Sodium 141 Potassium 3.8 Chloride 108 H Carbon Dioxide 30 Anion Gap 3 BUN 30 H Creatinine 0.70 Est Cr Clr Drug Dosing 55.0 Est GFR ( Amer) 91.6 Est GFR (Non-Af Amer) 79.0 BUN/Creatinine Ratio 42.9 H Glucose 124 H POC Glucose Lactate Calcium 9.9 Total Bilirubin 0.8 Direct Bilirubin 0.1 AST 14 ALT 12 Alkaline Phosphatase 44 Troponin I High Sens 20.3 H Total Protein 5.5 L Albumin 3.0 L Procalcitonin Urine Color Urine Appearance Urine pH Ur Specific [place] Urine Protein Urine Glucose (UA) Urine Ketones Urine Blood Urine Nitrite Urine Bilirubin Urine Urobilinogen Ur Leukocyte Esterase Urine WBC (Auto) Urine RBC (Auto) U Hyaline Cast (Auto) U Epithel Cells (Auto) Urine Bacteria (Auto) 04/19/22 04/19/22 04/19/22 07:42 11:40 13:02 WBC RBC Hgb Hct MCV MCH MCHC RDW Std Deviation RDW Coeff of Junie Plt Count MPV Immature Gran % (Auto) Neut % (Auto) Lymph % (Auto) [place] % (Auto) Eos % (Auto) Baso % (Auto) Neut # (Auto) Lymph # (Auto) [place] # (Auto) Eos # (Auto) Baso # (Auto) Immature Gran # (Auto) Sodium Potassium Chloride Carbon Dioxide Anion Gap BUN Creatinine Est Cr Clr Drug Dosing Est GFR ( Amer) Est GFR (Non-Af Amer) BUN/Creatinine Ratio Glucose POC Glucose 113 H 146 H Lactate Calcium Total Bilirubin Direct Bilirubin AST ALT Alkaline Phosphatase Troponin I High Sens Total Protein Albumin Procalcitonin < 0.05 Urine Color Urine Appearance Urine pH Ur Specific [place] Urine Protein Urine Glucose (UA) Urine Ketones Urine Blood Urine Nitrite Urine Bilirubin Urine Urobilinogen Ur Leukocyte Esterase Urine WBC (Auto) Urine RBC (Auto) U Hyaline Cast (Auto) U Epithel Cells (Auto) Urine Bacteria (Auto) 04/19/22 04/19/22 04/19/22 13:08 16:25 21:11 WBC RBC Hgb Hct MCV MCH MCHC RDW Std Deviation RDW Coeff of Junie Plt Count MPV Immature Gran % (Auto) Neut % (Auto) Lymph % (Auto) [place] % (Auto) Eos % (Auto) Baso % (Auto) Neut # (Auto) Lymph # (Auto) [place] # (Auto) Eos # (Auto) Baso # (Auto) Immature Gran # (Auto) Sodium Potassium Chloride Carbon Dioxide Anion Gap BUN Creatinine Est Cr Clr Drug Dosing Est GFR ( Amer) Est GFR (Non-Af Amer) BUN/Creatinine Ratio Glucose POC Glucose 134 H 172 H Lactate 1.0 Calcium Total Bilirubin Direct Bilirubin AST ALT Alkaline Phosphatase Troponin I High Sens Total Protein Albumin Procalcitonin Urine Color Urine Appearance Urine pH Ur Specific [place] Urine Protein Urine Glucose (UA) Urine Ketones Urine Blood Urine Nitrite Urine Bilirubin Urine Urobilinogen Ur Leukocyte Esterase Urine WBC (Auto) Urine RBC (Auto) U Hyaline Cast (Auto) U Epithel Cells (Auto) Urine Bacteria (Auto) 04/20/22 03:55 WBC RBC Hgb Hct MCV MCH MCHC RDW Std Deviation RDW Coeff of Junie Plt Count MPV Immature Gran % (Auto) Neut % (Auto) Lymph % (Auto) [place] % (Auto) Eos % (Auto) Baso % (Auto) Neut # (Auto) Lymph # (Auto) [place] # (Auto) Eos # (Auto) Baso # (Auto) Immature Gran # (Auto) Sodium Potassium Chloride Carbon Dioxide Anion Gap BUN Creatinine Est Cr Clr Drug Dosing Est GFR ( Amer) Est GFR (Non-Af Amer) BUN/Creatinine Ratio Glucose POC Glucose Lactate Calcium Total Bilirubin Direct Bilirubin AST ALT Alkaline Phosphatase Troponin I High Sens Total Protein Albumin Procalcitonin Urine Color Dark Yellow Urine Appearance Cloudy A Urine pH 6.5 Ur Specific [place] 1.040 H Urine Protein 1+ H Urine Glucose (UA) Negative Urine Ketones 1+ H Urine Blood 2+ H Urine Nitrite Positive A Urine Bilirubin Negative Urine Urobilinogen Negative Ur Leukocyte Esterase 2+ H Urine WBC (Auto) >30 H Urine RBC (Auto) 10-30 H U Hyaline Cast (Auto) 0 U Epithel Cells (Auto) 5-10 H Urine Bacteria (Auto) Negative Diagnostic Findings Cholangiopancreatography MRI 04/19/22 09:00 MR MRCP CLINICAL HISTORY: dilated CBD, hx tomi. ?radiolucent obstruction TECHNIQUE: Multiplanar multisequence MR images of the abdomen were obtained, as per MRCP protocol. . COMPARISON: Comparison is made to MRI abdomen pelvis 09/28/[address] abdomen pelvis 04/18/2022 FINDINGS: Exam is highly limited by patient motion. Lower chest: No acute abnormality Liver: Unremarkable. No focal lesions are seen. Gallbladder and biliary tree: Patient is status post cholecystectomy. The common bile duct is enlarged measuring approximately 12 mm in diameter. This is minimally enlarged from prior exam. Susceptibility artifact is seen from tomi cystectomy clips however no definite filling defects are seen in the duct. Pancreas: Unremarkable, no focal lesions. Spleen: Unremarkable. Adrenals: Unremarkable. Kidneys and ureters: Renal cysts are seen. Bowel: Unremarkable. Lymph nodes Retroperitoneal: Unremarkable. Mesenteric: Unremarkable. Peritoneum: Normal Vessels: Unremarkable. Abdominal wall: Unremarkable. Bones: Degenerative changes in the visualized spine. IMPRESSION: Highly limited exam. Prominent common bile duct, which however appears less markedly dilated than on prior CT. No filling defect is seen to suggest choledocholithiasis. ACT 112: Negative or not required by law. Electronically signed by: Frandy Christie M.D. 04/19/2022 5:55 PM Tibia/Fibula X-Ray 04/19/22 12:09 XR tibia fibula RT 2V CLINICAL HISTORY: ?metal wires protruding thru skin on major COMPARISON: Right knee radiographs February 04, 2020. FINDINGS: Revision longstem constrained right knee arthroplasty is noted. Apparent cerclage wire is noted. The lateral aspect of the wire now protrudes through the skin, a new finding since radiographs of of February 04, 2020. Associated soft tissue gas along the proximal right tibia is noted. Lateral projection demonstrates apparent chronic erosion/old deformity of the proximal right tibia. Osseous appearance is unchanged since radiographs of February 04, 2020. There is no contraindication to MRI on this exam. IMPRESSION: 1. No contraindication to MRI within the right knee/tibia and fibula. 2. Postoperative findings, as described above. Interval protrusion of an apparent cerclage wire through the skin with associated soft tissue gas adjacent to the proximal right tibia. Osseous appearance of the right tibia appears similar to radiographs of February 04, 2020. ACT 112: Negative or not required by law. Electronically signed by: Enrrique Johns M.D. 04/19/2022 2:56 PM PG Care Time/CCT Total # of Minutes Spent Total Time Spent with Patient: Total time spent is greater than 50% in coordination of care (as documented) at patient's floor/unit and/or counseling patient: Coding Level of Care Code 84449 Subseq Hosp Care Lvl 3 Diagnoses Chest pain R07.9 Chest pain type: unspecified Abdominal pain, acute, right upper quadrant R10.11 Encephalopathy acute G93.40 Dementia F03.90 Dementia type: unspecified type Dementia behavioral disturbance: without behavioral disturbance Polymyalgia rheumatica M35.3 Paroxysmal atrial fibrillation I48.0 Type 2 diabetes mellitus E11.9 Hypertension I10 Hypertension type: unspecified Hx pulmonary embolism Z86.711 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
[2022-04-20] MEDS: AMPICILLIN/SULBACTAM SOD 3,000 MG in 0.9 % SODIUM CHLORIDE 100 ML IV SCH ×3 (05:31→17:37)
[2022-04-20 06:16] LABS: Basophils # (auto) 0.02 K/uL (0-0.2); Basophils % (auto) 0.3 %; Eosinophils # (auto) 0.16 K/uL (0-0.50); Eosinophils % (auto) 2.2 %; Hematocrit (blood only) 35.3 % (34.1-44.9); Hemoglobin 11.6 g/dl (12.0-16.0); Immature Granulocytes # (auto) 0.03 K/uL (0.00-0.02); Immature Granulocytes % (auto) 0.4 %; Lymphocytes # (auto) 2.12 K/uL (1.2-3.4); Lymphocytes % (auto) 29.4 %; Mean Corpuscular Hemoglobin 31.9 pg (25.0-34.0); Mean Corpuscular Hgb Conc 32.9 g/dL (32.0-36.0); Monocytes # (auto) 0.64 K/uL (0.24-0.82); Monocytes % (auto) 8.9 %; Neutrophils # (auto) 4.25 K/uL (1.4-6.5); Neutrophils % (auto) 58.8 %; Platelet Count 191 K/uL (130-400); RDW Coefficient of Variation 13.8 % (11.5-14.5); RDW Standard Deviation 49.5 fL (36.4-46.3); Red Blood Count 3.64 M/uL (3.93-5.22); White Blood Count 7.22 K/ul (4.8-10.8)
[2022-04-20 06:44] LABS: BUN Creatinine Ratio 55.4 (10-20); C Reactive Protein 10.3 mg/dl (0-0.5); Calcium 9.3 mg/dl (8.5-10.1); Creatinine Clr Calc Pharmacy 68.8 ml/min; Est GFR (African American) 98.5 ml/min; Magnesium 1.5 mg/dl (1.7-2.4); Potassium 3.3 mmol/L (3.5-5.1)
[2022-04-20] MEDS: ACETAMINOPHEN 325 MG TAB PO SCH ×3 (08:17→21:13)
[2022-04-20] MEDS: HYDROCORTISONE SOD 25 MG in SYRINGE 0 ML IV SCH ×3 (08:18→21:17)
[2022-04-20] MEDS: THIAMINE HCL 100 MG TAB PO SCH (08:18)
[2022-04-20] MEDS: carvediloL 3.125 MG TAB PO SCH ×2 (08:18→21:13)
[2022-04-20] MEDS: LANSOPRAZOLE 30 MG SOLTAB PO SCH ×2 (08:18→21:13)
[2022-04-20] MEDS: SODIUM CHLORIDE 0.9% 1000ML 1,000 ML IV SCH (09:08)
[2022-04-20] MEDS: INSULIN ASPART PER UNIT SC SCH ×4 (09:11→21:14)
[2022-04-20] MEDS ORDERED: NSS + 20MEQ KCL 20 MEQ/1,000 ML BAG IV SCH (11:00)
[2022-04-20] MEDS: MAGNESIUM SULFATE / D5W 1 GM/100 ML BAG IV SCH ×2 (11:37→13:19)
[2022-04-20] MEDS ORDERED: OPTIRAY 320 500ml IV ONE (12:05)
--- NOTE | 2022-04-20 13:03 | CT Scan Report ---
CT angio chest PE protocol CT DOSE: 383.73 mGycm HISTORY: 86 years-old Female with ?chest pain, prior h/o PEs; eval for PE. Acute chest pain with sh ortness of breath TECHNIQUE: Multiple CTA images of the chest were obtained after the intravenous administration of 130 ml Optiray. Coronal and sagittal MIPS were obtained from the axial data set and were submitted for review. All measurements were obtained according to NASCET criteria. A dose lowering technique was u tilized adhering to the principles of ALARA. COMPARISON: CTA chest 07/07/2015, MRCP 04/19/2022 FINDINGS: CTA: Moderate cardiomegaly with small pericardial effusion. Moderate coronary artery calcifications. Ather osclerosis of the thoracic aorta without aneurysm or dissection. There is patency of the imaged great vessels. Descending thoracic aortic tortuosity. Dilated main pulmonary artery, 3.4 cm. Respiratory m otion artifact limits evaluation of the pulmonary arterial tree. No definite pulmonary emboli are neftaly ntified. CT CHEST: Multinodular thyroid goiter. No lymphadenopathy. There is no pneumothorax, pleural effusion, airspace consolidation or overt pulmonary edema. Mild subsegmental bibasilar atelectasis. There are no suspic ious pulmonary nodules or masses. Bronchial wall thickening. Mild nonspecific distal esophageal wall thickening. Partially imaged biliary ductal dilation with cho lecystectomy clips again noted. Unremarkable soft tissues. No acute fracture. Partially imaged hardwa re of the proximal left humerus. IMPRESSION: 1. Cardiomegaly without pulmonary emboli identified. 2. No pleural effusion or airspace consolidation typical for pneumonia. 3. Bronchial wall thickening suggestive of bronchitis or reactive airway disease. 4. Dilated pulmonary artery suggestive of pulmonary arterial hypertension. 5. Cholecystectomy with biliary ductal dilation redemonstrated. ACT 112: Negative or not required by law. The above report was generated using voice recognition software. It may contain grammatical, syntax o r spelling errors. Electronically signed by: Tong Mendes M.D. 04/20/2022 1:02 PM
[2022-04-20] MEDS: SUCRALFATE 1 GM/10 ML UDC PO SCH ×3 (16:16→21:17)
[2022-04-20] MEDS ORDERED: LANTUS PER UNIT CHARGE SQ SCH (21:00)
[2022-04-20] MEDS: SIMVASTATIN 20 MG TAB PO SCH (21:13)
[2022-04-20] MEDS: DONEPEZIL HCL 10 MG TAB PO SCH (21:13)
[2022-04-21] MEDS: AMPICILLIN/SULBACTAM SOD 3,000 MG in 0.9 % SODIUM CHLORIDE 100 ML IV SCH ×2 (00:09→05:53)
[2022-04-21 06:17] LABS: Creatinine Clr Calc Pharmacy 63.1 ml/min; Est GFR (African American) 95.8 ml/min; Est GFR (Non-African American) 82.7 ml/min; Magnesium 1.8 mg/dl (1.7-2.4); Potassium 3.1 mmol/L (3.5-5.1)
[2022-04-21] MEDS ORDERED: POTASSIUM CHLORIDE CRTAB 20 MEQ TABCR PO STA (06:20)
[2022-04-21] MEDS ORDERED: MAGNESIUM SULFATE / D5W 1 GM/100 ML BAG IV ONE (06:20)
[2022-04-21] MEDS: HYDROCORTISONE SOD 25 MG in SYRINGE 0 ML IV SCH (08:03)
[2022-04-21] MEDS: THIAMINE HCL 100 MG TAB PO SCH (08:04)
[2022-04-21] MEDS: LANSOPRAZOLE 30 MG SOLTAB PO SCH ×2 (08:04→21:38)
[2022-04-21] MEDS: carvediloL 3.125 MG TAB PO SCH ×2 (08:04→21:37)
[2022-04-21] MEDS: ACETAMINOPHEN 325 MG TAB PO SCH ×3 (08:04→21:36)
[2022-04-21] MEDS: INSULIN ASPART PER UNIT SC SCH ×4 (08:52→21:51)
--- NOTE | 2022-04-21 09:18 | Hospitalist Progress Note ---
Date of Service April 20, 2022 Assessment & Plan (1) Chest pain: Plan: at time of admission it was uncertain if patient was having chest pain or abdominal pain. history was limited because of her severe, advanced dementia. troponins scantly elevated. no evidence of ACS. CTA chest today obtained as there was a reported h/o PE in the past -- CTA chest negative for PE. There was mild distal esophageal wall thickening - was presenting pain due to severe reflux? Will add carafate QID x 10 days. (2) Abdominal pain, acute, right upper quadrant: Plan: as in #1 above it was uncertain if patient was having cp or abdominal pain prior to admission. CT a/p without any pathology except for constipation as well as enlarged CBD up to 2cm in diameter. To that end MRCP was obtained -- MRCP did NOT showed any bile duct abnormalities, no filling defects, etc. Thus, choledocholithiasis not suspected. During my exam today she again had no tenderness on exam. LFTs and lipase wnl. GERD?? added carafate to her PPI twice daily. (3) Encephalopathy acute: Plan: Suspect she has superimposed delirium on top of her advanced dementia. Former much improved today. yesterday she was lethargic and did not eat. Today - much more awake, alert, eating, etc. She is at risk of bacteremia in light of her right knee exposed wires and wound. blood cultures pending. urine cx pending but u/a was suspicious for UTI. cont unasyn IV for empiric coverage. Procal noted to be normal. CRP is high at 10. TSH 12/2021 wnl. follow cultures. 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 just seen by Dr Delonte Garcia, [facility], in early March the hardware in the right knee has failed there are exposed wires laterally she is followed by the wound care center for this I don't see any obvious cellulitis of the right knee I spoke with Dr Garcia today - she can WB as tolerated on the right knee Plan Derek - pt's son - updated by phone 04/19 PT, OT evals requested stop IV fluids tonight repeat labs in am Admission and Anticipated Discharge Date Admission Date: April 19, 2022 Subjective per nursing has had a good day pleasant confusion; no agitated delirium eating decently no cp or abd pain throughout the day tele stable no cough heard by any staff member during bedside rounds she was pleasantly confused very awake today but unable to give any meaningful history or ROS Review of Systems Review of Systems: Unobtainable due to cognitive status Physical Exam Physical Exam: gen - awake, alert, pleasant confusion today; looks much better today mouth - MMM neck - no JVD heart - RRR, s1 s2, no murmur lungs - CTA b/l abd - soft NT ND BS+; no HSM ext - no ankle edema, pulses 2+ b/l skin - right lateral knee - exposed wires x 2 (sticking out of skin by about 3- 4mm), no drainage, no cellulitis psych - a/o to person only Results & Data Results & Data ([facility]) Vital Signs (Past 12 Hours) Vital Signs Temp Pulse Pulse Resp BP Pulse Ox O2 Del Method 04/21/22 08:11 36.7 C 60 18 124/74 99 Room Air 04/21/22 04:02 36.8 C 62 18 125/71 98 Room Air 04/20/22 22:20 74 04/21/22 00:05 36.9 C 69 16 113/60 94 Room Air Laboratory Results BMP wnl blood cx's neg urine cx pending Diagnostic Findings Chest CTA 04/20/22 10:59 CT angio chest PE protocol CT DOSE: 383.73 mGycm HISTORY: 86 years-old Female with ?chest pain, prior h/o PEs; eval for PE. Acute chest pain with shortness of breath TECHNIQUE: Multiple CTA images of the chest were obtained after the intravenous administration of 130 ml Optiray. Coronal and sagittal MIPS were obtained from the axial data set and were submitted for review. All measurements were obtained according to NASCET criteria. A dose lowering technique was utilized adhering to the principles of ALARA. COMPARISON: CTA chest 07/07/2015, MRCP 04/19/2022 FINDINGS: CTA: Moderate cardiomegaly with small pericardial effusion. Moderate coronary artery calcifications. Atherosclerosis of the thoracic aorta without aneurysm or dissection. There is patency of the imaged great vessels. Descending thoracic aortic tortuosity. Dilated main pulmonary artery, 3.4 cm. Respiratory motion artifact limits evaluation of the pulmonary arterial tree. No definite pulmonary emboli are identified. CT CHEST: Multinodular thyroid goiter. No lymphadenopathy. There is no pneumothorax, pleural effusion, airspace consolidation or overt pulmonary edema. Mild subsegmental bibasilar atelectasis. There are no suspicious pulmonary nodules or masses. Bronchial wall thickening. Mild nonspecific distal esophageal wall thickening. Partially imaged biliary ductal dilation with cholecystectomy clips again noted. Unremarkable soft tissues. No acute fracture. Partially imaged hardware of the proximal left humerus. IMPRESSION: 1. Cardiomegaly without pulmonary emboli identified. 2. No pleural effusion or airspace consolidation typical for pneumonia. 3. Bronchial wall thickening suggestive of bronchitis or reactive airway disease. 4. Dilated pulmonary artery suggestive of pulmonary arterial hypertension. 5. Cholecystectomy with biliary ductal dilation redemonstrated. ACT 112: Negative or not required by law. The above report was generated using voice recognition software. It may contain grammatical, syntax or spelling errors. Electronically signed by: Tong Mendes M.D. 04/20/2022 1:02 PM PG Care Time/CCT Total # of Minutes Spent Total Time Spent with Patient: Total time spent is greater than 50% in coordination of care (as documented) at patient's floor/unit and/or counseling patient: Coding Level of Care Code 83998 Subseq Hosp Care Lvl 3 Diagnoses Chest pain R07.9 Chest pain type: unspecified Abdominal pain, acute, right upper quadrant R10.11 Encephalopathy acute G93.40 Dementia F03.90 Dementia type: unspecified type Dementia behavioral disturbance: without behavioral disturbance Polymyalgia rheumatica M35.3 Paroxysmal atrial fibrillation I48.0 Type 2 diabetes mellitus E11.9 Hypertension I10 Hypertension type: unspecified Hx pulmonary embolism Z86.711 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
[2022-04-21] MEDS ORDERED: predniSONE 20 MG TAB PO SCH (09:30)
[2022-04-21] MEDS: SUCRALFATE 1 GM/10 ML UDC PO SCH ×4 (09:43→21:38)
--- NOTE | 2022-04-21 17:37 | Hospitalist Progress Note ---
Date of Service April 21, 2022 Assessment & Plan (1) Chest pain: Plan: at time of admission it was uncertain if patient was having chest pain or abdominal pain. history was limited because of her severe, advanced dementia and probable superimposed delirium. troponins scantly elevated. no evidence of ACS. CTA chest obtained as there was a reported h/o PE in the past -- CTA chest negative for PE. There was mild distal esophageal wall thickening - was presenting pain due to severe reflux? Added carafate QID x 10 days. Cont PPI bid. She has had NO CHEST PAIN at any time during this hospital stay. (2) Abdominal pain, acute, right upper quadrant: Plan: as in #1 above it was uncertain if patient was having cp or abdominal pain prior to admission. CT a/p without any pathology except for constipation as well as enlarged CBD up to 2cm in diameter. To that end MRCP was obtained -- MRCP did NOT showed any bile duct abnormalities, no filling defects, etc. Thus, choledocholithiasis not suspected. Cont to have no tenderness on exam. LFTs and lipase wnl. GERD?? added carafate to her PPI twice daily. (3) Encephalopathy acute: Plan: Suspect she has superimposed delirium on top of her advanced dementia. Former resolved (hospital day #1 was lethargic and did not eat). Since then - much more awake, alert, eating fair, etc. She is at risk of bacteremia in light of her right knee exposed wires and wound. However, blood cultures remain negative. urine cx pending but u/a was suspicious for UTI. has been on unasyn since admission - can change to keflex or omnicef (even if urine cx is neg would finish a 7-day course of abx) Procal noted to be normal. CRP is high at 10. consider repeat in am. TSH 12/2021 wnl. follow cultures. 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 just seen by Dr Delonte Garcia, [facility], in early March the hardware in the right knee has failed there are exposed wires laterally she is followed by the wound care center for this I don't see any obvious cellulitis of the right knee I spoke with Dr Garcia 04/20 - she can WB as tolerated on the right knee Plan Derek - pt's son - updated by phone 04/19 and 04/21 PT, OT anum requested repeat labs in am can d/c telemetry; move to med/surg Admission and Anticipated Discharge Date Admission Date: April 19, 2022 Subjective no issues overnight or today per staff appetite is fair at best; picks at food, not robust pleasantly confused during the visit she was looking out the window at the trees when I came to see her she denied pain in her chest or abdomen a little pain in her right knee only tele overnight wnl Review of Systems Review of Systems: Unobtainable due to cognitive status Physical Exam Physical Exam: gen - awake, alert, pleasant confusion like previous mouth - MMM neck - no JVD heart - RRR, s1 s2, no murmur lungs - CTA b/l chest - no reproducible chest wall pain to palpation abd - soft NT ND BS+; no HSM ext - no ankle edema, pulses 2+ b/l skin - right lateral knee - exposed wires x 2 (sticking out of skin by about 3- 4mm), no drainage, no cellulitis psych - a/o to person only Results & Data Results & Data ([facility]) Vital Signs (Past 12 Hours) Vital Signs Temp Pulse Resp BP Pulse Ox O2 Del Method 04/21/22 17:14 36.9 C 71 18 134/79 95 Room Air 04/21/22 11:53 36.8 C 74 18 122/66 94 04/21/22 08:11 36.7 C 60 18 124/74 99 Room Air Laboratory Results Laboratory Results - last 24 hr 04/20/22 04/21/22 04/21/22 21:02 05:42 08:22 Sodium 140 Potassium 3.1 L Chloride 112 H Carbon Dioxide 24 Anion Gap 4 BUN 25 H Creatinine 0.61 Est Cr Clr Drug Dosing 63.1 Est GFR ( Amer) 95.8 Est GFR (Non-Af Amer) 82.7 BUN/Creatinine Ratio 41.0 H Glucose 148 H POC Glucose 206 H 124 H Calcium 9.0 Magnesium 1.8 04/21/22 04/21/22 12:11 17:03 Sodium Potassium Chloride Carbon Dioxide Anion Gap BUN Creatinine Est Cr Clr Drug Dosing Est GFR ( Amer) Est GFR (Non-Af Amer) BUN/Creatinine Ratio Glucose POC Glucose 208 H 224 H Calcium Magnesium Diagnostic Findings blood cx's neg urine cx - pinpoint growth PG Care Time/CCT Total # of Minutes Spent Total Time Spent with Patient: Total time spent is greater than 50% in coordination of care (as documented) at patient's floor/unit and/or counseling patient: Coding Level of Care Code 44669 Subseq Hosp Care Lvl 2 Diagnoses Chest pain R07.9 Chest pain type: unspecified Abdominal pain, acute, right upper quadrant R10.11 Encephalopathy acute G93.40 Dementia F03.90 Dementia behavioral disturbance: without behavioral disturbance Dementia type: unspecified type Polymyalgia rheumatica M35.3 Paroxysmal atrial fibrillation I48.0 Type 2 diabetes mellitus E11.9 Hypertension I10 Hypertension type: unspecified Hx pulmonary embolism Z86.711 Prosthetic joint implant failure T84.019A (1) Dementia Dementia behavioral disturbance: without behavioral disturbance Dementia type: unspecified type Qualified Code(s): F03.90 - Unspecified dementia without behavioral disturbance (2) Chest pain Chest pain type: unspecified Qualified Code(s): R07.9 - Chest pain, unspecified (3) Hypertension Hypertension type: unspecified Qualified Code(s): I10 - Essential (primary) hypertension
[2022-04-21] MEDS: DONEPEZIL HCL 10 MG TAB PO SCH (21:37)
[2022-04-21] MEDS: SIMVASTATIN 20 MG TAB PO SCH (21:38)
[2022-04-22 07:17] LABS: BUN Creatinine Ratio 41.3 (10-20); C Reactive Protein 2.55 mg/dl (0-0.5); Calcium 8.9 mg/dl (8.5-10.1); Creatinine Clr Calc Pharmacy 83.7 ml/min; Est GFR (African American) 105.1 ml/min; Est GFR (Non-African American) 90.7 ml/min; Potassium 3.5 mmol/L (3.5-5.1)
[2022-04-22 07:35] LABS: Folate (Folic Acid) 9.51 ng/ml (>5.38)
[2022-04-22] MEDS: INSULIN ASPART PER UNIT SC SCH ×4 (08:56→20:46)
[2022-04-22] MEDS: AMOXICILLIN/CLAVULANATE 875 MG TAB PO SCH ×2 (08:57→17:50)
[2022-04-22] MEDS: LANTUS PER UNIT CHARGE SQ SCH ×2 (08:57→20:46)
[2022-04-22] MEDS: LANSOPRAZOLE 30 MG SOLTAB PO SCH ×2 (08:57→20:51)
[2022-04-22] MEDS: carvediloL 3.125 MG TAB PO SCH ×2 (08:57→20:52)
[2022-04-22] MEDS: ACETAMINOPHEN 325 MG TAB PO SCH ×3 (08:57→20:52)
[2022-04-22] MEDS: ADVANCED PROBIOTIC 1250 MG CAPSULE PO SCH (08:57)
[2022-04-22] MEDS: THIAMINE HCL 100 MG TAB PO SCH (08:58)
[2022-04-22] MEDS: SUCRALFATE 1 GM/10 ML UDC PO SCH ×4 (08:58→20:52)
[2022-04-22] MEDS ORDERED: predniSONE 10 MG TABLET PO SCH (09:00)
--- NOTE | 2022-04-22 18:06 | Hospitalist Progress Note ---
Date of Service April 22, 2022 Assessment & Plan (1) Chest pain: Plan: at time of admission it was uncertain if patient was having chest pain or abdominal pain. history was limited because of her severe, advanced dementia and probable superimposed delirium. troponins scantly elevated. no evidence of ACS. CTA chest obtained as there was a reported h/o PE in the past -- CTA chest negative for PE. There was mild distal esophageal wall thickening - perhaps GERD was the cause of pain. Added carafate QID x 10 days. Cont PPI bid. She has had NO CHEST PAIN at any time during this hospital stay. (2) Abdominal pain, acute, right upper quadrant: Plan: as in #1 above it was uncertain if patient was having cp or abdominal pain prior to admission. CT a/p without any pathology except for constipation as well as enlarged CBD up to 2cm in diameter. To that end MRCP was obtained -- MRCP did NOT showed any bile duct abnormalities, no filling defects, etc. Thus, choledocholithiasis not suspected. Cont to have no tenderness on exam. LFTs and lipase wnl. Again perhaps pain was GERD. Added carafate to her PPI twice daily. (3) Encephalopathy acute: Plan: Suspect she had superimposed delirium on top of her advanced dementia. Former resolved (hospital day #1 was lethargic and did not eat). Since then - much more awake, alert, eating, etc. Blood cultures negative. Urine cx - 10,000 CFU of GNR. Of note -- IV abx had been started well before the culture was obtained. However , she clinically improved on Unasyn. This has been changed to augmentin. Procal noted to be normal. CRP was high at 10. Following IV/PO abx now 2.5. TSH 12/2021 wnl. 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 just seen by Dr Delonte Garcia, [facility], in early March the hardware in the right knee has failed there are exposed wires laterally she is followed by the wound care center for the exposed wires 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 I don't see any obvious cellulitis of the right knee again today I spoke with Dr Garcia 04/20 - she can WB as tolerated on the right knee Plan Derek - pt's son - updated by phone 04/19 and 04/21 and again this evening PT, OT evals - no rehab potential, essentially bed-bound repeat labs in am hopefully can d/c back to SNF tomorrow Admission and Anticipated Discharge Date Admission Date: April 19, 2022 Subjective no events overnight patient resting in bed comfortably during the visit she was watching TV nursing flowsheets show good appetite, >75% of meals consumed Review of Systems Review of Systems: patient denies - cv - no chest pain pulm - no dyspnea GI - no abd pain neuro - no headache Physical Exam Physical Exam: gen - awake, alert, pleasant confusion like previous mouth - MMM neck - no JVD heart - RRR, s1 s2, no murmur lungs - CTA b/l abd - soft NT ND BS+; no HSM ext - no ankle edema, pulses 2+ b/l skin - right lateral knee - exposed wires x 2 (sticking out of skin by about 3- 4mm), no drainage, no cellulitis - no change psych - a/o to person only Results & Data Results & [facility] ([facility]) Vital Signs (Past 12 Hours) Vital Signs Temp Pulse Resp BP Pulse Ox O2 Del Method 04/22/22 08:19 36.9 C 60 16 133/72 97 Room Air Laboratory Results Laboratory Results - last 24 hr 04/21/22 04/22/22 04/22/22 21:50 06:18 06:18 Sodium 137 Potassium 3.5 Chloride 109 H Carbon Dioxide 25 Anion Gap 3 BUN 19 Creatinine 0.46 L Est Cr Clr Drug Dosing 83.7 Est GFR ( Amer) 105.1 Est GFR (Non-Af Amer) 90.7 BUN/Creatinine Ratio 41.3 H Glucose 125 H POC Glucose 202 H Calcium 8.9 C-Reactive Protein 2.55 H Vitamin B12 1219 H Folate 9.51 04/22/22 04/22/22 04/22/22 08:04 12:07 17:11 Sodium Potassium Chloride Carbon Dioxide Anion Gap BUN Creatinine Est Cr Clr Drug Dosing Est GFR ( Amer) Est GFR (Non-Af Amer) BUN/Creatinine Ratio Glucose POC Glucose 112 H 164 H 191 H Calcium C-Reactive Protein Vitamin B12 Folate PG Care Time/CCT Total # of Minutes Spent Total Time Spent with Patient: Total time spent is greater than 50% in coordination of care (as documented) at patient's floor/unit and/or counseling patient: Coding Level of Care Code 35177 Subseq Hosp Care Lvl 2 Diagnoses Chest pain R07.9 Chest pain type: unspecified Abdominal pain, acute, right upper quadrant R10.11 Encephalopathy acute G93.40 Dementia F03.90 Dementia behavioral disturbance: without behavioral disturbance Dementia type: unspecified type Polymyalgia rheumatica M35.3 Paroxysmal atrial fibrillation I48.0 Type 2 diabetes mellitus E11.9 Hypertension I10 Hypertension type: unspecified Hx pulmonary embolism Z86.711 Prosthetic joint implant failure T84.019A (1) Dementia Dementia behavioral disturbance: without behavioral disturbance Dementia type: unspecified type Qualified Code(s): F03.90 - Unspecified dementia without behavioral disturbance (2) Chest pain Chest pain type: unspecified Qualified Code(s): R07.9 - Chest pain, unspecified (3) Hypertension Hypertension type: unspecified Qualified Code(s): I10 - Essential (primary) hypertension
[2022-04-22] MEDS: SIMVASTATIN 20 MG TAB PO SCH (20:51)
[2022-04-22] MEDS: DONEPEZIL HCL 10 MG TAB PO SCH (20:52)
[2022-04-23 06:51] LABS: Hematocrit (blood only) 36.3 % (34.1-44.9); Mean Corpuscular Hemoglobin 31.4 pg (25.0-34.0); Mean Corpuscular Hgb Conc 33.1 g/dL (32.0-36.0); Mean Platelet Volume 9.3 fL (9.4-12.3); Platelet Count 185 K/uL (130-400); RDW Coefficient of Variation 13.2 % (11.5-14.5); RDW Standard Deviation 46.3 fL (36.4-46.3); Red Blood Count 3.82 M/uL (3.93-5.22); White Blood Count 8.03 K/ul (4.8-10.8)
[2022-04-23 07:10] LABS: BUN Creatinine Ratio 23.2 (10-20); Calcium 9.4 mg/dl (8.5-10.1); Creatinine Clr Calc Pharmacy 55.8 ml/min; Est GFR (Non-African American) 79.4 ml/min; Potassium 3.2 mmol/L (3.5-5.1)
[2022-04-23] MEDS: INSULIN ASPART PER UNIT SC SCH ×2 (08:53→12:26)
[2022-04-23] MEDS: AMOXICILLIN/CLAVULANATE 875 MG TAB PO SCH (09:00)
[2022-04-23] MEDS ORDERED: LANTUS PER UNIT CHARGE SQ SCH (09:00)
[2022-04-23] MEDS ORDERED: POTASSIUM CHLORIDE CRTAB 20 MEQ TABCR PO SCH (09:00)
[2022-04-23] MEDS: POTASSIUM CHLORIDE CRTAB 20 MEQ TABCR PO SCH ×2 (09:00→13:06)
[2022-04-23] MEDS: ACETAMINOPHEN 325 MG TAB PO SCH ×2 (09:00→13:06)
[2022-04-23] MEDS: carvediloL 3.125 MG TAB PO SCH (09:01)
[2022-04-23] MEDS: ADVANCED PROBIOTIC 1250 MG CAPSULE PO SCH (09:02)
[2022-04-23] MEDS: LANSOPRAZOLE 30 MG SOLTAB PO SCH (09:02)
[2022-04-23] MEDS: THIAMINE HCL 100 MG TAB PO SCH (09:03)
[2022-04-23] MEDS: predniSONE 20 MG TAB PO SCH (09:03)
[2022-04-23] MEDS: SUCRALFATE 1 GM/10 ML UDC PO SCH ×2 (09:03→13:06)
--- NOTE | 2022-04-23 13:26 | Discharge Summary ---
Date of Service date of admission - April 18, 2022 date of discharge - April 23, 2022 Admission HPI Per Admitting Provider Zina Castañeda is an 86yo female who presents due to chest pain radiating into her back while at wound care center. Demented at baseline with no complaints. RUQ pain on exam. CT with dilated interhepatic ducts, history of cholecystectomy. Discussed with son by ER, son would want infectious/stone eval overnight and discussion based on results. History is significantly limited by dementia, patient is pleasant but not oriented to place or year or season. Is oriented to name. Is not sure why she is in the hospital, denies chest pain/chest pressure/abdominal pain at bedside assessment. Denies any symptoms out of the ordinary for her. On physical exam does wince and grimace to right upper quadrant palpation more than other abdominal exam but "is not sure "if she is wincing from pain. Discussed w/ son. Knows she had chest pain while at wound clinic which resolved by ER. Dementia limits exam. Does not think she was having any new symptoms in days leading up to wound care. No recent fever/chills/sweats to his knowledge, although note she gets most of her care at [facility]. Confirms DNR/DNI status Principal Diagnosis 1. question of chest pain and/or abdominal pain - no specific pathology found 2. proteus UTI 3. exposed wires from malfunctioning hardware - right knee Discharge Exam gen - awake, alert, pleasant confusion like previous mouth - MMM neck - no JVD heart - RRR, s1 s2, no murmur lungs - CTA b/l abd - soft NT ND BS+; no HSM ext - no ankle edema, pulses 2+ b/l skin - right lateral knee - exposed wires x 2 (sticking out of skin by about 3- 4mm), no drainage, no cellulitis - no change psych - a/o to person only Discharge Data Allergies Allergy/AdvReac Type Severity Reaction Status Date / Time adhesive Allergy Intermediate SKIN Verified 04/26/22 13:07 BLISTERS tetanus toxoid, adsorbed Allergy Mild SWELLING Verified 04/26/22 13:07 AT SITE codeine AdvReac Intermediate HEART Verified 04/26/22 13:07 PALPITATIONS (RECIEVED MORPHINE IV IN 2004 ADMIT) Consultations PT, OT Ordered Studies KUB X-Ray 04/18/22 13:57 XR KUB/Abdomen 1 view CLINICAL HISTORY: CP TECHNIQUE: 1 view of the abdomen was obtained. Comparison: Comparison is made to CT abdomen pelvis 12/11/2021 FINDINGS: Surgical clips are in the right upper quadrant. Right pelvic calcifications are seen compatible with previously noted phleboliths. Degenerative changes are seen in the visualized skeleton. The bowel gas pattern is nonobstructive. A moderate amount of stool is noted within the large bowel. IMPRESSION: Nonobstructive bowel gas pattern. ACT 112: Negative or not required by law. Electronically signed by: Frandy Christie M.D. 04/18/2022 2:31 PM Chest X-Ray 04/18/22 13:58 XR chest 1V portable CLINICAL HISTORY: Atypical chest pain. COMPARISON STUDY: Chest radiograph December 18, 2021. FINDINGS: Patient is rotated. Mild left basilar opacity is present. There is no pneumothorax or pleural effusion. Cardiac size is stable. Mediastinal contours are normal. There is no evidence for pulmonary edema. Left humeral internal fixation is partially imaged. IMPRESSION: Mild left basilar opacity. This could reflect a focus of pneumonia or atelectasis. Radiographic follow-up to ensure resolution is recommended. ACT 112: Negative or not required by law. Electronically signed by: Enrrique Johns M.D. 04/18/2022 2:48 PM Abdomen/Pelvis CT 04/18/22 15:07 CT abd pelvis IV con only CLINICAL HISTORY: right sided painm confused TECHNIQUE: Helical axial images of the abdomen and pelvis were obtained and displayed. Automated dose lowering techniques and/or adjustment according to patient size were utilized for this exam. This exam was performed with intravenous contrast. CT DOSE: 619.48 mGycm COMPARISON: Comparison is made to CT abdomen pelvis 12/11/2021 FINDINGS: Lower chest: Biatrial enlargement and cardiomegaly is noted. Atelectasis is noted. Liver: Unremarkable. No focal lesions are seen. Gallbladder and biliary tree: Patient is status post cholecystectomy. The common bile duct is enlarged measuring up to 2 cm in diameter, increased from prior exam. Pancreas: Unremarkable, no focal lesions. Spleen: Unremarkable. Adrenals: Unremarkable. Kidneys and ureters: Bilateral renal cysts are seen. Nonobstructive stones are seen. Bladder: Limited evaluation due to underdistention. Reproductive organs: Patient is status post hysterectomy. Bowel: A large stool ball is seen in the rectum with surrounding a concerning for extravasation. No definite evidence of stercoral colitis. Lymph nodes Retroperitoneal: Unremarkable. Pelvic: Unremarkable. Mesenteric: Unremarkable. Peritoneum: Normal. Vessels: Phleboliths are seen. Abdominal wall: Bilateral fat-containing inguinal hernias are seen. Bones: Degenerative changes in the visualized spine. IMPRESSION: 1. Markedly enlarged common bile duct compared to prior exam. Although some physiologic enlargement is to be expected in the setting of cholecystectomy, a radiolucent choledochal stone cannot be excluded. 2. Inspissated stool in the rectum. 3. Obstructive stones are seen in the kidneys. ACT 112: Negative or not required by law. Electronically signed by: Frandy Christie M.D. 04/18/2022 4:19 PM Cholangiopancreatography MRI 04/19/22 09:00 MR MRCP CLINICAL HISTORY: dilated CBD, hx tomi. ?radiolucent obstruction TECHNIQUE: Multiplanar multisequence MR images of the abdomen were obtained, as per MRCP protocol. . COMPARISON: Comparison is made to MRI abdomen pelvis 09/28/[address] abdomen pelvis 04/18/2022 FINDINGS: Exam is highly limited by patient motion. Lower chest: No acute abnormality Liver: Unremarkable. No focal lesions are seen. Gallbladder and biliary tree: Patient is status post cholecystectomy. The common bile duct is enlarged measuring approximately 12 mm in diameter. This is minimally enlarged from prior exam. Susceptibility artifact is seen from cholecystectomy clips however no definite filling defects are seen in the duct. Pancreas: Unremarkable, no focal lesions. Spleen: Unremarkable. Adrenals: Unremarkable. Kidneys and ureters: Renal cysts are seen. Bowel: Unremarkable. Lymph nodes Retroperitoneal: Unremarkable. Mesenteric: Unremarkable. Peritoneum: Normal Vessels: Unremarkable. Abdominal wall: Unremarkable. Bones: Degenerative changes in the visualized spine. IMPRESSION: Highly limited exam. Prominent common bile duct, which however appears less markedly dilated than on prior CT. No filling defect is seen to suggest choledocholithiasis. ACT 112: Negative or not required by law. Electronically signed by: Frandy Christie M.D. 04/19/2022 5:55 PM Tibia/Fibula X-Ray 04/19/22 12:09 XR tibia fibula RT 2V CLINICAL HISTORY: ?metal wires protruding thru skin on major COMPARISON: Right knee radiographs February 04, 2020. FINDINGS: Revision longstem constrained right knee arthroplasty is noted. Apparent cerclage wire is noted. The lateral aspect of the wire now protrudes through the skin, a new finding since radiographs of of February 04, 2020. Associated soft tissue gas along the proximal right tibia is noted. Lateral projection demonstrates apparent chronic erosion/old deformity of the proximal right tibia. Osseous appearance is unchanged since radiographs of February 04, 2020. There is no contraindication to MRI on this exam. IMPRESSION: 1. No contraindication to MRI within the right knee/tibia and fibula. 2. Postoperative findings, as described above. Interval protrusion of an apparent cerclage wire through the skin with associated soft tissue gas adjacent to the proximal right tibia. Osseous appearance of the right tibia appears similar to radiographs of February 04, 2020. ACT 112: Negative or not required by law. Electronically signed by: Enrrique Johns M.D. 04/19/2022 2:56 PM Chest CTA 04/20/22 10:59 CT angio chest PE protocol CT DOSE: 383.73 mGycm HISTORY: 86 years-old Female with ?chest pain, prior h/o PEs; eval for PE. Acute chest pain with shortness of breath TECHNIQUE: Multiple CTA images of the chest were obtained after the intravenous administration of 130 ml Optiray. Coronal and sagittal MIPS were obtained from the axial data set and were submitted for review. All measurements were obtained according to NASCET criteria. A dose lowering technique was utilized adhering to the principles of ALARA. COMPARISON: CTA chest 07/07/2015, MRCP 04/19/2022 FINDINGS: CTA: Moderate cardiomegaly with small pericardial effusion. Moderate coronary artery calcifications. Atherosclerosis of the thoracic aorta without aneurysm or dissection. There is patency of the imaged great vessels. Descending thoracic aortic tortuosity. Dilated main pulmonary artery, 3.4 cm. Respiratory motion artifact limits evaluation of the pulmonary arterial tree. No definite pulmonary emboli are identified. CT CHEST: Multinodular thyroid goiter. No lymphadenopathy. There is no pneumothorax, pleural effusion, airspace consolidation or overt pulmonary edema. Mild subsegmental bibasilar atelectasis. There are no suspicious pulmonary nodules or masses. Bronchial wall thickening. Mild nonspecific distal esophageal wall thickening. Partially imaged biliary d uctal dilation with cholecystectomy clips again noted. Unremarkable soft tissues. No acute fracture. Partially imaged hardware of the proximal left humerus. IMPRESSION: 1. Cardiomegaly without pulmonary emboli identified. 2. No pleural effusion or airspace consolidation typical for pneumonia. 3. Bronchial wall thickening suggestive of bronchitis or reactive airway disease. 4. Dilated pulmonary artery suggestive of pulmonary arterial hypertension. 5. Cholecystectomy with biliary ductal dilation redemonstrated. ACT 112: Negative or not required by law. The above report was generated using voice recognition software. It may contain grammatical, syntax or spelling errors. Electronically signed by: Tong Mendes M.D. 04/20/2022 1:02 PM Hospital Course (1) Chest pain: at time of admission it was uncertain if patient was having chest pain or abdominal pain. history was limited because of her severe, advanced dementia and probable superimposed delirium. troponins scantly elevated. no evidence of ACS. CTA chest was obtained as there was a reported h/o PE in the past -- CTA chest this admission was negative for PE. There was mild distal esophageal wall thickening on CT abd/pelvis - perhaps GERD was the cause of pain. Added carafate QID x 10 days. Cont PPI bid. She had NO CHEST PAIN at any time during this hospital stay. (2) Abdominal pain, acute, right upper quadrant: as in #1 above it was uncertain if patient was having cp or abdominal pain prior to admission. CT a/p without any pathology except for constipation as well as enlarged CBD up to 2cm in diameter. To that end MRCP was obtained -- MRCP did NOT showed any bile duct abnormalities, no filling defects, etc. Thus, choledocholithiasis not found. Patient had no tenderness on exam while here LFTs and lipase wnl. Again perhaps her preadmission pain was GERD related? Added carafate to her PPI twice daily. (3) Encephalopathy acute: Suspect she had superimposed delirium on top of her advanced dementia. Former resolved (hospital day #1 she was lethargic and did not eat). Since then - much more awake, alert, eating, etc. Blood cultures negative. Urine cx - 10,000 CFU of Proteus. Of note -- IV abx had been started well before the culture was obtained. However , she clinically improved on Unasyn. This was later changed to augmentin. She will complete a few more days of PO augmentin post-discharge. Procal noted to be normal. CRP was high at 10. Following IV/PO abx now 2.5. TSH 12/2021 wnl. 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 just seen by Dr Delonte Garcia, [facility], in early March the hardware in the right knee has failed there are exposed wires laterally she is followed by the [facility] for the 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 chest pain and/or abdominal pain -- no pain while here; CT chest/abdomen/pelvis without acute pathology; no pulmonary emboli or pneumonia or other findings to explain pain 2. UTI 3. 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 diabetes mellitus 5. chronic prednisone use for PMR 6. GERD 7. enlarged common bile duct on CT scan of the abdomen; NEGATIVE MRCP Activity: Resume your previous activity Weightbearing: Right weightbearing Weightbearing Comment: as tolerated to RLE Non-emergency contact: Primary Care Provider and Specialist Call non-emergency contact if: you have any medication questions and your symptoms worsen Follow-up/Referrals: Heavenly Holt CRNP [Nurse Practitioner] - (1 week or as scheduled with W[facility] Care Center for right knee wound/exposed wires ) Delonte Garcia MD [Physician] - (see Dr Garcia for right knee malfunctioning hardware) Jan Royal [facility] [Primary Care Provider] - Diet: Carb Consistent or DM2 Diet Texture: Easy to Chew Addtl Attending Provider Instructions: 1. Check BSGs ac/hs 2. Local wound care to right later knee (ulcer/exposed wires) - aquacel ag, cover w/ optifoam 3. Local wound care to left major skin lesion/ulcer - optifoam 4. BMP with magnesium level in 5 days for stability Pending Studies at Discharge: No Stand-Alone Forms: My [facility] Skilled Items Patient informed of condition?: Yes DNR: Yes Discharge Level of Care: Skilled Communicable Disease: Yes (h/o VRE) Discharge Prognosis: Stable Lines: None Urinary Catheter: No Medications and DC Order Prescriptions: New thiamine HCl (vitamin B1) 100 mg Tablet 200 mg PO QAM 30 Days Qty: 60 0RF Continued (DME) Overnight Pad For Women Pad See Rx Instructions .ROUTE .MEDSUPPLY Qty: 168 3RF Rx Instructions: USE TWICE DAILY. (DME) Novofine Autocover 30 gauge x 1/3" needle See Rx Instructions .ROUTE .MEDSUPPLY Qty: 100 3RF Rx Instructions: tests 2 times daily E 11.9 nystatin 100,000 unit/gram powder 1 applic TOP BID PRN (Reason: rash) Qty: 60 0RF (DME) OneTouch Ultra Blue Test Strip Strip See Rx Instructions .ROUTE .MEDSUPPLY Qty: 200 3RF Rx Instructions: TEST SUGARS TWICE DAILY (DME) BD AutoShield Duo Pen Needle 30 gauge x 3/16" needle See Rx Instructions .ROUTE .MEDSUPPLY Qty: 200 3RF Rx Instructions: use to inject insulin twice daily donepezil [Aricept] 10 mg tablet 10 mg PO HS Qty: 90 3RF cholecalciferol (vitamin D3) 50 mcg (2,000 unit) capsule 2,000 unit PO QAM Qty: 30 6RF prednisone 20 mg tablet 20 mg PO QAM Qty: 90 3RF (DME) lancets [ReadyLance Safety Lancets] 30 gauge misc See Rx Instructions .ROUTE .MEDSUPPLY Qty: 200 3RF Rx Instructions: USE TO TEST TWICE DAILY. DX: E11.9 diclofenac sodium 1 % Gel 4 g TOPICAL DAILY PRN (Reason: PAIN R KNEE) Rx Instructions: Apply 4 g to right knee every 24 hours as needed for knee pain acetaminophen 325 mg tablet 650 mg PO TID MDD 3 GRAMS/24 HOURS acetaminophen 325 mg tablet 650 mg PO Q4 MDD 3g PRN (Reason: Fever Or Pain) Rx Instructions: see routine order polyethylene glycol 3350 [Miralax] 17 gram/dose Powder 17 g PO Q24H PRN (Reason: Constipation) ondansetron 4 mg Tablet,Disintegrating 4 mg PO Q6H PRN (Reason: Nausea And Vomiting) insulin aspart U-100 [Novolog PenFill U-100 Insulin] 100 unit/mL Cartridge 4 unit SUBCUT QPM Rx Instructions: WITH EVENING MEAL 201-250 give 3 units 251-300 give 5 units 301-350 give 7 units 351-400 give 9 units 401-> give 11 units pantoprazole [address] For Susp In Packet 40 mg PO BID Rx Instructions: take 30-60 minutes before food carvedilol [Coreg] 3.125 mg tablet 3.125 mg PO BID cyanocobalamin (vitamin B-12) 1,000 mcg capsule 1,000 mcg PO QAM potassium chloride 20 mEq tablet,ER particles/crystals 20 meq PO QAM menthol-zinc oxide [Calmoseptine] 0.44-20.6 % Ointment 1 applic TOPICAL BID Rx Instructions: apply to periwound,buttocks,thigh. apply both calmoseptine and antifungal. may also use as needed for rash lidocaine HCl 4 % Cream 1 applic TOPICAL QID Rx Instructions: apply to right bicep Changed insulin glargine [Lantus Solostar U-100 Insulin] 100 unit/mL (3 mL) insulin pen 10 unit SC QAM Qty: 1 0RF Rx Instructions: hold for BSG < 150 Discontinued tramadol 50 mg tablet 50 mg PO Q4 MDD 300mg PRN (Reason: pain moderate-severe) tramadol 50 mg tablet 50 mg PO TID MDD 300mg No Action dimethicone Lotion 1 ea TOPICAL BID menthol-zinc oxide [Calmoseptine] 0.44-20.6 % Ointment 1 applic TOPICAL HS Paxlovid (EUA) 300 mg (150 mg x 2)-100 mg tablets,dose pack See Rx Instructions .ROUTE .COMPLEX Qty: 30 0RF Rx Instructions: take TWO 150 mg tablets of nirmatrelvir with ONE 100 mg tablet of ritonavir twice daily for 5 days Discharge Orders: Discharge Order (Routine); Ordered 04/23/22 Ordered By: Abdiaziz Santos/Other Patient Handouts: Dementia Daily Care, Dementia Caregiver Tips Admission Data Admit Date/Time: 04/19/22 12:14 Attending Provider: Abdiaziz Raya Admit Provider: Aniket Bueno Primary Care Provider: Jan Royal [place] Other Providers: Jan Royal [place] ; Aniket Bueno Other Interventions: Discharge Summary Assessment (RN) Last Done: 04/23/22 16:24 Coding Level of Care Code D/C DAY MANAGEMENT >30 MINS Diagnoses Chest pain R07.9 Chest pain type: unspecified Abdominal pain, acute, right upper quadrant R10.11 Encephalopathy acute G93.40 Dementia F03.90 Dementia behavioral disturbance: without behavioral disturbance Dementia type: unspecified type Polymyalgia rheumatica M35.3 Paroxysmal atrial fibrillation I48.0 Type 2 diabetes mellitus E11.9 Hypertension I10 Hypertension type: unspecified Hx pulmonary embolism Z86.711 Prosthetic joint implant failure T84.019A
== END 2022-04-23 14:05 | DRG 391 ==
LOC: 4W 13:52 → ED 13:52 → 4W 19:38 → SUATTDRO 20:22 → 3E 04-21 16:18
DX: M48.061 Spinal stenosis, lumbar region without neurogenic claudication; I48.0 Paroxysmal atrial fibrillation; B36.9 Superficial mycosis, unspecified; I10 Essential (primary) hypertension; Z90.49 Acquired absence of other specified parts of digestive tract; T84.092A Other mechanical complication of internal right knee prosthesis, initial encounter; M35.3 Polymyalgia rheumatica; Z79.52 Long term (current) use of systemic steroids; R10.11 Right upper quadrant pain; Z91.048 Other nonmedicinal substance allergy status; B96.4 Proteus (mirabilis) (morganii) as the cause of diseases classified elsewhere; E53.8 Deficiency of other specified B group vitamins; R07.9 Chest pain, unspecified; Z79.899 Other long term (current) drug therapy; L89.153 Pressure ulcer of sacral region, stage 3; N39.0 Urinary tract infection, site not specified; E78.5 Hyperlipidemia, unspecified; E11.9 Type 2 diabetes mellitus without complications; Z86.711 Personal history of pulmonary embolism; Z88.5 Allergy status to narcotic agent; Z79.4 Long term (current) use of insulin; G93.40 Encephalopathy, unspecified; Z88.7 Allergy status to serum and vaccine; F03.90 Unspecified dementia, unspecified severity, without behavioral disturbance, psychotic disturbance, mood disturbance, and anxiety; K21.9 Gastro-esophageal reflux disease without esophagitis; D64.9 Anemia, unspecified; Z66 Do not resuscitate

== ENCOUNTER 2022-05-16 05:18 | Observation (INO) ==
--- NOTE | 2022-04-26 13:22 | PAT Medication Instructions ---
Medication Instructions Date of Service April 26, 2022 Home Medications Medication Instructions Recorded incontinence pad, liner, disp #168 ea 08/11/19 (Overnight Pad For Women) pen needle, diabetic, safety 30 #100 ea 06/28/20 gauge x 1/3" (Novofine Autocover) nystatin 100,000 unit/gram topical 1 applic topical BID PRN rash #60 09/27/20 powder grams blood sugar diagnostic (OneTouch #200 ea 11/14/20 Ultra Blue Test Strip) pen needle,diabetic dual safty 30 #200 ea 11/14/20 gauge x 3/16" (BD AutoShield Duo Pen Needle) cholecalciferol (vitamin D3) 50 2,000 unit PO QAM #30 caps 05/29/21 mcg (2,000 unit) capsule donepezil 10 mg tablet (Aricept) 10 mg PO HS #90 tabs 05/29/21 simvastatin 20 mg tablet 20 mg PO HS #90 tabs 05/29/21 prednisone 20 mg tablet 20 mg PO QAM #90 tabs 07/10/21 lancets 30 gauge (ReadyLance #200 ea 07/11/21 Safety Lancets) L.acidop,casei,lactis,rham-B.lact,edmond 2 cap PO DAILY 7 days #14 caps 04/23/22 625 mg (10 billion cell) capsule (Advanced Probiotic) amoxicillin 875 mg-potassium 1 tab PO BIDM 5 days #10 tabs 04/23/22 clavulanate 125 mg tablet insulin glargine 100 unit/mL (3 10 unit (0.1 mL) SC QAM #1 mL 04/23/22 mL) subcutaneous pen (Lantus Solostar U-100 Insulin) sucralfate 100 mg/mL oral 1 g (10 mL) PO QID 7 days #280 mL 04/23/22 suspension thiamine HCl (vitamin B1) 100 mg 200 mg PO QAM 30 days #60 tabs 04/23/22 tablet tramadol 50 mg tablet 50 mg PO Q4 PRN pain 04/23/22 moderate-severe #10 tabs tramadol 50 mg tablet 50 mg PO TID #30 tabs 04/23/22 incontinence pad, liner, disp (Overnight Pad For Women) pen needle, diabetic, safety 30 gauge x 1/3" (Novofine Autocover) nystatin 100,000 unit/gram topical powder 1 applic topical BID PRN blood sugar diagnostic (OneTouch Ultra Blue Test Strip) pen needle,diabetic dual safty 30 gauge x 3/16" (BD AutoShield Duo Pen Needle) diclofenac sodium 1 % topical gel 4 g topical DAILY PRN cholecalciferol (vitamin D3) 50 mcg (2,000 unit) capsule 2,000 unit PO QAM donepezil 10 mg tablet (Aricept) 10 mg PO HS simvastatin 20 mg tablet 20 mg PO HS prednisone 20 mg tablet 20 mg PO QAM lancets 30 gauge (ReadyLance Safety Lancets) acetaminophen 325 mg tablet 650 mg PO TID acetaminophen 325 mg tablet 650 mg PO Q4 PRN carvedilol 3.125 mg tablet (Coreg) 3.125 mg PO BID cyanocobalamin (vitamin B-12) 1,000 mcg capsule 1,000 mcg PO QAM insulin aspart U-100 100 unit/mL subcutaneous cartridge (Novolog PenFill U-100 Insulin aspart) 4 unit subcut QPM ondansetron 4 mg disintegrating tablet 4 mg PO Q6H PRN pantoprazole 40 mg granules delayed-release for susp in packet 40 mg PO BID polyethylene glycol 3350 17 gram/dose oral powder (Miralax) 17 g PO Q24H PRN lidocaine HCl 4 % topical cream 1 applic topical QID menthol 0.44 %-zinc oxide 20.6 % topical ointment (Calmoseptine) 1 applic topical BID potassium chloride 20 mEq tablet,extended release(part/cryst) 20 meq PO QAM L.acidop,casei,lactis,rham-B.lact,edmond 625 mg (10 billion cell) capsule (Advanced Probiotic) 2 cap PO DAILY amoxicillin 875 mg-potassium clavulanate 125 mg tablet 1 tab PO BIDM insulin glargine 100 unit/mL (3 mL) subcutaneous pen (Lantus Solostar U-100 Insulin) 10 unit (0.1 mL) SC QAM sucralfate 100 mg/mL oral suspension 1 g (10 mL) PO QID thiamine HCl (vitamin B1) 100 mg tablet 200 mg PO QAM tramadol 50 mg tablet 50 mg PO Q4 PRN tramadol 50 mg tablet 50 mg PO TID dimethicone 1 ea topical BID menthol 0.44 %-zinc oxide 20.6 % topical ointment (Calmoseptine) 1 applic topical HS Continue as directed amoxicillin 875 mg-potassium clavulanate 125 mg tablet 1 tab PO BIDM ondansetron 4 mg disintegrating tablet 4 mg PO Q6H PRN(if needed) STOP taking 24 hours before surgery nystatin 100,000 unit/gram topical powder 1 applic topical BID PRN lidocaine HCl 4 % topical cream 1 applic topical QID menthol 0.44 %-zinc oxide 20.6 % topical ointment (Calmoseptine) 1 applic topical BID dimethicone 1 ea topical BID menthol 0.44 %-zinc oxide 20.6 % topical ointment (Calmoseptine) 1 applic topical HS DO NOT take the morning of surgery cholecalciferol (vitamin D3) 50 mcg (2,000 unit) capsule 2,000 unit PO QAM cyanocobalamin (vitamin B-12) 1,000 mcg capsule 1,000 mcg PO QAM polyethylene glycol 3350 17 gram/dose oral powder (Miralax) 17 g PO Q24H PRN(if needed) potassium chloride 20 mEq tablet,extended release(part/cryst) 20 meq PO QAM L.acidop,casei,lactis,rham-B.lact,edmond 625 mg (10 billion cell) capsule (Advanced Probiotic) 2 cap PO DAILY sucralfate 100 mg/mL oral suspension 1 g (10 mL) PO QID thiamine HCl (vitamin B1) 100 mg tablet 200 mg PO QAM Take morning of surgery With a small sip of water, OTHERWISE NOTHING TO EAT OR DRINK AFTER MIDNIGHT: prednisone 20 mg tablet 20 mg PO QAM acetaminophen 325 mg tablet 650 mg PO TID acetaminophen 325 mg tablet 650 mg PO Q4 PRN(if needed) carvedilol 3.125 mg tablet (Coreg) 3.125 mg PO BID pantoprazole 40 mg granules delayed-release for susp in packet 40 mg PO BID tramadol 50 mg tablet 50 mg PO Q4 PRN(if needed) tramadol 50 mg tablet 50 mg PO TID Take evening before surgery donepezil 10 mg tablet (Aricept) 10 mg PO HS simvastatin 20 mg tablet 20 mg PO HS acetaminophen 325 mg tablet 650 mg PO TID acetaminophen 325 mg tablet 650 mg PO Q4 PRN(if needed) carvedilol 3.125 mg tablet (Coreg) 3.125 mg PO BID insulin aspart U-100 100 unit/mL subcutaneous cartridge (Novolog PenFill U-100 Insulin aspart) 4 unit subcut QPM pantoprazole 40 mg granules delayed-release for susp in packet 40 mg PO BID tramadol 50 mg tablet 50 mg PO Q4 PRN(if needed) tramadol 50 mg tablet 50 mg PO TID Insulin Dependent Diabetic Patients * Test your blood sugar the morning of surgery * If Blood Sugar is GREATER THAN 150, take HALF of your regular dose of: insulin glargine 100 unit/mL (3 mL) subcutaneous pen (Lantus Solostar U-100 Insulin)-5 unit (0.1 mL) SC QAM. * If Blood Sugar is LESS THAN 150, DO NOT TAKE ANY: insulin glargine 100 unit/mL (3 mL) subcutaneous pen (Lantus Solostar U-100 Insulin). Other Notes If you have any questions please call us at [phone] or [phone] or [phone] or [phone]
--- NOTE | 2022-04-27 14:01 | Anesthesiology Consultation ---
Date of Service April 27, 2022 Assessment & Plan Chart Review Chart Review: Acceptable Risk for Surgery and Patient NOT seen in Pre Admission Testing History Surgery Operation Date: 05/02/22 07:15 Proposed Procedures p Right Knee Irrigation and Debridement, Wire Removal - Delonte Jovanny Garcia MD Height/Weight Height: 5 ft 6 in Weight: 66.27 kg Allergies Allergy/AdvReac Type Severity Reaction Status Date / Time adhesive Allergy Intermediate SKIN Verified 04/26/22 13:07 BLISTERS tetanus toxoid, adsorbed Allergy Mild SWELLING Verified 04/26/22 13:07 AT SITE codeine AdvReac Intermediate HEART Verified 04/26/22 13:07 PALPITATIONS (RECIEVED MORPHINE IV IN 2004 ADMIT) Medications Home Medications Medication Instructions Recorded Confirmed Last Taken incontinence pad, liner, disp #168 ea 08/11/19 04/18/22 Unknown (Overnight Pad For Women) pen needle, diabetic, safety 30 #100 ea 06/28/20 04/18/22 Unknown gauge x 1/3" (Novofine Autocover) nystatin 100,000 unit/gram topical 1 applic topical BID PRN rash #60 09/27/20 04/26/22 Unknown powder grams blood sugar diagnostic (OneTouch #200 ea 11/14/20 04/18/22 Unknown Ultra Blue Test Strip) pen needle,diabetic dual safty 30 #200 ea 11/14/20 04/18/22 Unknown gauge x 3/16" (BD AutoShield Duo Pen Needle) diclofenac sodium 1 % topical gel 4 g topical DAILY PRN PAIN R KNEE 05/05/21 04/26/22 Unknown cholecalciferol (vitamin D3) 50 2,000 unit PO QAM #30 caps 05/29/21 04/26/22 12/10/21 08:00 mcg (2,000 unit) capsule donepezil 10 mg tablet (Aricept) 10 mg PO HS #90 tabs 05/29/21 04/26/22 12/10/21 20:00 simvastatin 20 mg tablet 20 mg PO HS #90 tabs 05/29/21 04/26/22 12/10/21 20:00 prednisone 20 mg tablet 20 mg PO QAM #90 tabs 07/10/21 04/26/22 12/10/21 08:00 lancets 30 gauge (ReadyLance #200 ea 07/11/21 04/18/22 Unknown Safety Lancets) acetaminophen 325 mg tablet 650 mg PO TID Pain management 09/01/21 04/26/22 12/10/21 20:00 650 mg acetaminophen 325 mg tablet 650 mg PO Q4 PRN Fever Or Pain 09/27/21 04/26/22 Unknown carvedilol 3.125 mg tablet (Coreg) 3.125 mg PO BID 12/11/21 04/26/22 12/10/21 20:00 cyanocobalamin (vitamin B-12) 1,000 mcg PO QAM 12/11/21 04/26/22 12/10/21 08:00 1,000 mcg capsule insulin aspart U-100 100 unit/mL 4 unit subcut QPM 12/11/21 04/26/22 12/10/21 20:00 subcutaneous cartridge (Novolog 1 unit PenFill U-100 Insulin aspart) ondansetron 4 mg disintegrating 4 mg PO Q6H PRN Nausea And Vomiting 12/11/21 04/26/22 12/10/21 09:20 tablet pantoprazole 40 mg granules 40 mg PO BID Duodenal Ulcers 12/11/21 04/26/22 12/11/21 06:00 delayed-release for susp in packet polyethylene glycol 3350 17 17 g PO Q24H PRN Constipation 12/11/21 04/26/22 Unknown gram/dose oral powder (Miralax) lidocaine HCl 4 % topical cream 1 applic topical QID 04/18/22 04/18/22 Unknown menthol 0.44 %-zinc oxide 20.6 % 1 applic topical BID 04/18/22 04/26/22 Unknown topical ointment (Calmoseptine) potassium chloride 20 mEq 20 meq PO QAM 04/18/22 04/26/22 Unknown tablet,extended release(part/cryst) L.acidop,casei,lactis,rham-B.lact,edmond 2 cap PO DAILY 7 days #14 caps 04/23/22 04/26/22 Unknown 625 mg (10 billion cell) capsule (Advanced Probiotic) amoxicillin 875 mg-potassium 1 tab PO BIDM 5 days #10 tabs 04/23/22 04/26/22 Unknown clavulanate 125 mg tablet insulin glargine 100 unit/mL (3 10 unit (0.1 mL) SC QAM #1 mL 04/23/22 04/26/22 12/10/21 20:00 mL) subcutaneous pen (Lantus 12 units Solostar U-100 Insulin) sucralfate 100 mg/mL oral 1 g (10 mL) PO QID 7 days #280 mL 04/23/22 04/26/22 Unknown suspension thiamine HCl (vitamin B1) 100 mg 200 mg PO QAM 30 days #60 tabs 04/23/22 04/26/22 Unknown tablet tramadol 50 mg tablet 50 mg PO Q4 PRN pain 04/23/22 04/26/22 Unknown moderate-severe #10 tabs tramadol 50 mg tablet 50 mg PO TID #30 tabs 04/23/22 04/26/22 Unknown dimethicone 1 ea topical BID 04/26/22 04/26/22 Unknown menthol 0.44 %-zinc oxide 20.6 % 1 applic topical HS 04/26/22 04/26/22 Unknown topical ointment (Calmoseptine) Past Medical History Medical History Alzheimer disease Anemia B12 deficiency Chronic SI joint pain Cognitive impairment Cyst of kidney, acquired Dementia Depression Dysphagia Encephalopathy Hx (entered from remote 2019 halfway records) Encephalopathy acute Fungal dermatitis Gait instability Gastroesophageal reflux GI bleed History of respiratory failure Hx (entered from remote 2019 halfway records) Hx pulmonary embolism Hx (entered from remote 2019 halfway records) Hyperlipidemia Hypertension Lumbar facet joint syndrome Osteoporosis Paroxysmal atrial fibrillation Developed intraoperatively on 06/15/2019. Converted to NSR after dilt ggt and treatment of sepsis Polymyalgia rheumatica Polymyalgia rheumatica Prosthetic joint implant failure Sepsis 2018 (pyelonephritis with obstructing calculus) Skin cancer PERSONAL HX MALIGNANT MELANOMA Spinal stenosis, lumbar region without neurogenic claudication Stage III pressure ulcer of sacral region Type 2 diabetes mellitus Type 2 diabetes mellitus Ureterolithiasis Vitamin D deficiency Wounds, multiple Stage III pressure ulcer of sacral region, Open R/L lower leg wounds [place] [facility] [place] Past Family History Family History Sister Diabetes Stroke Brother Diabetes Prostate cancer Father Lung disease Past Surgical History Surgical History H/O cystoscopy Cyst with L stent (06/15/2019) at [facility]. MAC. Patient given insulin for hyperglycemia and metoprolol and cardizem intraop. Cysto/stent (12/11/21): MAC at [facility]. No issues noted per post-op anesthesia progress note. H/O: hysterectomy History of appendectomy History of knee replacement procedure of left knee History of knee replacement procedure of right knee History of open reduction and internal fixation (ORIF) procedure L HUMEROUS Hx of cholecystectomy Hx of excision of epidermal inclusion cyst Hx of tonsillectomy Presence urogenital implant Social History Smoking Status: Unknown if ever smoked Smoking cigarettes per day: UTO Hx Alcohol Use: No Alcohol type: wine alcohol intake frequency: holidays/special occasions only Hx Substance Use: No substance use type: does not use
--- NOTE | 2022-05-15 15:30 | PAT Medication Instructions ---
Medication Instructions Date of Service May 15, 2022 Home Medications Medication Instructions Recorded incontinence pad, liner, disp #168 ea 08/11/19 (Overnight Pad For Women) pen needle, diabetic, safety 30 #100 ea 06/28/20 gauge x 1/3" (Novofine Autocover) nystatin 100,000 unit/gram topical 1 applic topical BID PRN rash #60 09/27/20 powder grams blood sugar diagnostic (OneTouch #200 ea 11/14/20 Ultra Blue Test Strip) pen needle,diabetic dual safty 30 #200 ea 11/14/20 gauge x 3/16" (BD AutoShield Duo Pen Needle) cholecalciferol (vitamin D3) 50 2,000 unit PO QAM #30 caps 05/29/21 mcg (2,000 unit) capsule donepezil 10 mg tablet (Aricept) 10 mg PO HS #90 tabs 05/29/21 prednisone 20 mg tablet 20 mg PO QAM #90 tabs 07/10/21 lancets 30 gauge (ReadyLance #200 ea 07/11/21 Safety Lancets) insulin glargine 100 unit/mL (3 10 unit (0.1 mL) SC QAM #1 mL 04/23/22 mL) subcutaneous pen (Lantus Solostar U-100 Insulin) thiamine HCl (vitamin B1) 100 mg 200 mg PO QAM 30 days #60 tabs 04/23/22 tablet nirmatrelvir 300 mg (150 mg See Rx Instructions PO .COMPLEX 04/29/22 x2)-ritonavir 100 mg tablet,dose #30 ea pack(EUA) (Paxlovid) incontinence pad, liner, disp (Overnight Pad For Women) pen needle, diabetic, safety 30 gauge x 1/3" (Novofine Autocover) nystatin 100,000 unit/gram topical powder 1 applic topical BID PRN blood sugar diagnostic (OneTouch Ultra Blue Test Strip) pen needle,diabetic dual safty 30 gauge x 3/16" (BD AutoShield Duo Pen Needle) diclofenac sodium 1 % topical gel 4 g topical DAILY PRN cholecalciferol (vitamin D3) 50 mcg (2,000 unit) capsule 2,000 unit PO QAM donepezil 10 mg tablet (Aricept) 10 mg PO HS prednisone 20 mg tablet 20 mg PO QAM lancets 30 gauge (ReadyLance Safety Lancets) acetaminophen 325 mg tablet 650 mg PO TID acetaminophen 325 mg tablet 650 mg PO Q4 carvedilol 3.125 mg tablet (Coreg) 3.125 mg PO BID cyanocobalamin (vitamin B-12) 1,000 mcg capsule 1,000 mcg PO QAM insulin aspart U-100 100 unit/mL subcutaneous cartridge (Novolog PenFill U-100 I nsulin aspart) 4 unit subcut QPM ondansetron 4 mg disintegrating tablet 4 mg PO Q6H PRN pantoprazole 40 mg granules delayed-release for susp in packet 40 mg PO BID polyethylene glycol 3350 17 gram/dose oral powder (Miralax) 17 g PO Q24H PRN lidocaine HCl 4 % topical cream 1 applic topical QID menthol 0.44 %-zinc oxide 20.6 % topical ointment (Calmoseptine) 1 applic topical BID potassium chloride 20 mEq tablet,extended release(part/cryst) 20 meq PO QAM insulin glargine 100 unit/mL (3 mL) subcutaneous pen (Lantus Solostar U-100 Insulin) 10 unit (0.1 mL) SC QAM thiamine HCl (vitamin B1) 100 mg tablet 200 mg PO QAM dimethicone 1 ea topical BID menthol 0.44 %-zinc oxide 20.6 % topical ointment (Calmoseptine) 1 applic topical HS Continue as directed prednisone 20 mg tablet 20 mg PO QAM ondansetron 4 mg disintegrating tablet 4 mg PO Q6H PRN(if needed) ASK your surgeon for instructions diclofenac sodium 1 % topical gel 4 g topical DAILY PRN STOP taking 24 hours before surgery nystatin 100,000 unit/gram topical powder 1 applic topical BID PRN lidocaine HCl 4 % topical cream 1 applic topical QID menthol 0.44 %-zinc oxide 20.6 % topical ointment (Calmoseptine) 1 applic topical BID dimethicone 1 ea topical BID menthol 0.44 %-zinc oxide 20.6 % topical ointment (Calmoseptine) 1 applic topical HS DO NOT take the morning of surgery cholecalciferol (vitamin D3) 50 mcg (2,000 unit) capsule 2,000 unit PO QAM cyanocobalamin (vitamin B-12) 1,000 mcg capsule 1,000 mcg PO QAM polyethylene glycol 3350 17 gram/dose oral powder (Miralax) 17 g PO Q24H PRN pantoprazole 40 mg granules delayed-release for susp in packet 40 mg PO BID potassium chloride 20 mEq tablet,extended release(part/cryst) 20 meq PO QAM thiamine HCl (vitamin B1) 100 mg tablet 200 mg PO QAM Take morning of surgery With a small sip of water, OTHERWISE NOTHING TO EAT OR DRINK AFTER MIDNIGHT: acetaminophen 325 mg tablet 650 mg PO TID acetaminophen 325 mg tablet 650 mg PO Q4 carvedilol 3.125 mg tablet (Coreg) 3.125 mg PO BID Take evening before surgery donepezil 10 mg tablet (Aricept) 10 mg PO HS acetaminophen 325 mg tablet 650 mg PO TID acetaminophen 325 mg tablet 650 mg PO Q4 carvedilol 3.125 mg tablet (Coreg) 3.125 mg PO BID insulin aspart U-100 100 unit/mL subcutaneous cartridge (Novolog PenFill U-100 Insulin aspart) 4 unit subcut QPM pantoprazole 40 mg granules delayed-release for susp in packet 40 mg PO BID Insulin Dependent Diabetic Patients * Test your blood sugar the morning of surgery * If Blood Sugar is GREATER THAN 150, take HALF of your regular dose of: insulin glargine 100 unit/mL (3 mL) subcutaneous pen (Lantus Solostar U-100 Insulin)-5 unit (0.1 mL) SC QAM * If Blood Sugar is LESS THAN 150, DO NOT TAKE ANY: insulin glargine 100 unit/mL (3 mL) subcutaneous pen (Lantus Solostar U-100 Insulin). Other Notes If you have any questions please call us at [phone] or [phone] or [phone] or [phone]
[2022-05-16] MEDS ORDERED: LR 15ML/HR IV SCH (06:00)
[2022-05-16] MEDS ORDERED: cefTRIAXone SODIUM 1,000 MG in DEXTROSE 5% 50 ML IV SCH ×2 (06:00→12:00)
[2022-05-16] MEDS: General Order Problem(s) SCH ×6 (06:15→11:37)
[2022-05-16] MEDS ORDERED: LIDOCAINE 1% LOCAL 20 ML VIAL ONE (06:38)
[2022-05-16] MEDS ORDERED: BUPIVACAINE 0.5 % 5 MG/1 ML MPF 30ML VIAL ONE (06:38)
[2022-05-16] MEDS ORDERED: EPINEPHrine HCL INJ 1 MG/ML 30ML ONE (06:39)
[2022-05-16] MEDS ORDERED: LIDOCAINE 1%/EPINEPHRINE 1:100,000 50 ML VIAL ONE (06:40)
[2022-05-16] MEDS ORDERED: EPINEPHrine INJ 1 MG/ML AMP ONE (06:40)
[2022-05-16] MEDS ORDERED: LIDOCAINE 2% MPF LOCAL 5 ML VIAL INFIL ONE (06:47)
[2022-05-16] MEDS ORDERED: PROPOFOL IV EMULSION 10 MG/ML 20 ML VIAL IV ONE (06:47)
[2022-05-16] MEDS ORDERED: fentaNYL citrate 100 MCG/2 ML VIAL ONE (06:47)
--- NOTE | 2022-05-16 06:48 | History & Physical Bridge Note ---
Date of Service May 16, 2022 History & Physical Bridge Note I have examined the patient, reviewed the History & Physical and in the interval since the performance of the History & Physical I have noted the following changes of clinical significance: no changes noted. Family is aware of the risks and currently asymptomatic for COVID-19. She tested + COVID 04/29/22.
[2022-05-16] MEDS ORDERED: DAKIN'S SOLN 0.5% FULL STRENGTH 473ML BTL EXT STA (07:10)
[2022-05-16] MEDS ORDERED: ONDANSETRON INJ 2 MG/ML 2 ML VIAL ONE (08:23)
[2022-05-16] MEDS ORDERED: ATROPINE SULFATE 0.1 MG/ML 10ML SYR IV PRN (08:28)
[2022-05-16] MEDS ORDERED: PROMETHAZINE HCL 12.5 MG in SODIUM CHLORIDE 0.9% 50 ML IV PRN (08:28)
[2022-05-16] MEDS ORDERED: LABETALOL HCL IV 5 MG/ML 20ML IV PRN (08:28)
[2022-05-16] MEDS ORDERED: ePHEDrine sulfate 50 MG/ML AMP IV PRN (08:28)
[2022-05-16] MEDS ORDERED: ONDANSETRON INJ 2 MG/ML 2 ML VIAL IV PRN ×2 (08:28→11:10)
[2022-05-16] MEDS ORDERED: NALOXONE HCL 0.4 MG/1 ML VIAL/CARP IV PRN ×2 (08:28→11:10)
[2022-05-16] MEDS ORDERED: fentaNYL citrate 100 MCG/2 ML VIAL IV PRN (08:28)
[2022-05-16] MEDS ORDERED: FLUMAZENIL 0.1 MG/1 ML 10 ML VIAL IV PRN (08:28)
--- NOTE | 2022-05-16 09:18 | Post Operative Brief Note ---
Immediate Post Op Note v1 Date of Surgery May 16, 2022 Pre & Post Diagnosis Operation Date: 05/16/22 07:00 Pre-Op Diagnosis: Right Knee Wound, exposed orthopedic hardware Post-Op Diagnosis: Right Knee Wound, exposed orthopedic hardware I identified the patient and participated in the time-out.: Yes Procedure Operation Date: 05/16/22 07:00 Actual Procedures p Right Knee Irrigation and Debridement, Removal of Retained Orthopedic Hardware-Deep(Right) - Delonte Garcia MD Surgeon Delonte Garcia MD Street Light Rep[employer] Helper C YOSELIN Blue (No fellow avail) Estimated Blood Loss 20 Findings Consistent with Post-Op Diagnosis Fluids 600 cc Anesthesia Type General Complications none
--- NOTE | 2022-05-16 09:22 | Operative Report ---
Post Operative Report Pre & Post Diagnosis Operation Date: 05/16/22 07:00 Pre-Op Diagnosis: Right Knee Wound, exposed orthopedic hardware Post-Op Diagnosis: Right Knee Wound, exposed orthopedic hardware I identified the patient and participated in the time-out.: Yes Procedure Operation Date: 05/16/22 07:00 Actual Procedures p Right Knee Irrigation and Debridement, Removal of Retained Orthopedic Hardware-Deep(Right) - Delonte Garcia MD Surgeon Delonte Garcia MD Enrollment Nurse Josh Blue PA-C (No fellow avail) Estimated Blood Loss 20 Findings See Below Exposed orthopedic hardware lateral open wound. No obvious infection. Hardware communicated with the TKA components. Fluids 600 cc Specimens Right knee: Lateral Cultures x 4 (Superficial x2, Deep & Deep post washout) Medial Cultures Skin and soft tissue Retained hardware (Dull-Miles Cable) Anesthesia Type General Complications none Indications The patient had chronic open wound from there broken Dull-Miles cable that is also exposed. The patient and family understands the risks of surgery, which include but are not limited to: bleeding, infection, re-operation, damage to nerves and arteries, continued pain and DVT. The patient and family understands all of these instructions and explanations, all of their questions have been satisfactorily addressed. The patient and family due to her condition and multiple medical problems has elected to proceed with surgery for an I&D and removal of the broken cable only and the informed consent was signed. Description of Procedure Josh Blue PA-C is assisting with positioning, retraction, and closure due to fellow not available. Procedure The patient was taken to the Operating Room and placed in the supine position on the operating table. After general anesthetic was administered a multidisciplinary time-out was performed identifying my initials on the right limb as the correct and operative limb. Ceftriaxone antibiotics were given prior to incision and cultures. The right leg was prepped and draped in the usual Orthopaedic sterile fashion. The patient's previous anterior incision was marked. The planned lateral incision which was centered along the open wound was marked as well as elliptical excision of the open lesion. The medial incision was marked after isolating the cable using Fluroscopy. The skin edges were injected with a 50:50 mixture of 1% lidocaine and 0.5 % Marcaine with epi for a total of 15 cc. The lateral incision was made and lesion was ellipsed and excised with a scalpel. There was minimal devitalized soft tissue around the frayed Dull-Miles cable which was tagged with a hemostat. There was no purulent drainage. Superficial and deep cultures were obtained. The wire did communicate with the joint. Any non-viable skin, soft tissue down was removed with a combination of sharp dissection with the scalpel, curette, and rongeur. The wound was copiously irrigated with 3L normal saline. Then the wound was bathed in full strength Dakin solution for 3 minutes. The majority of the frayed Dull-Miles cable were cut short as closed to the Tibia as possible, leaving the hemostat attached to the remaining ends. The wound was copiously irrigated with 3L normal saline. Then the wound was bathed in 50:50 mix of peroxide and normal saline solution for 3 minutes. The wound was copiously irrigated with 3L normal saline. Then the wound was bathed in Diluted Betadine solution for 3 minutes. Repeat deep cultures were obtained. The wound was copiously irrigated with 3L normal saline. At this point the RLE was redraped. Gloves were exchanged and new instruments used. Our attention was drawn to the medial side and an incision was made. Blunt dissection with a javier elevator and cautery exposed the Dull-Miles cable. The anterior portion was delivered into the medial incision. The remaining frayed ends laterally were cut short. Deep medial cultures were also obtained. The bone, cement, tibial component was stable. The poly also appeared intact. The Dull-Miles cable was removed through the medial incision. The wounds were copiously irrigated with 3L normal saline. Following irrigation and debridement there was healthy viable tissue. The skin were closed with 3-0 Prolene. The wound was covered Xeroform, 4 x 4's, ABDs, sterile cast padding, and an BABITA. The sponge and needle counts were correct. POST-OP: Patient will be admitted and continued on IV Rocephin until seen by infectious disease. Hospitalist service will also be consulted for medical management. The patient is WBAT. I attest to the content of the Intraoperative Record and any orders documented therein. Any exceptions are noted below.
--- NOTE | 2022-05-16 09:43 | Operative Report ---
Post Operative Report Pre & Post Diagnosis Operation Date: 05/16/22 07:00 Pre-Op Diagnosis: Right Knee Wound Post-Op Diagnosis: Right Knee Wound I identified the patient and participated in the time-out.: Yes Procedure Operation Date: 05/16/22 07:00 Actual Procedures p Right Knee Irrigation and Debridement, Removal of Retained Orthopedic Hardware-Deep(Right) - Delonte Jovanny Garcia MD Surgeon D Jose TINAJERO Operations Dispatcher C YOSELIN Blue (No fellow avail) Estimated Blood Loss 20 Findings Consistent with Post-Op Diagnosis see operative report Specimens see operative report Drains none Complications none Disposition Accompanied Patient To Recovery: Yes Indications This 87 year old female presented to the office with complaints of wires protruding from the skin of her lateral right knee. She had previously been through a total knee revision with circlage wire placement. Her power of banking attorney elected to proceed with surgical intervention after being educated about potential risks and outcomes. Preoperative imaging was obtained. Description of Procedure Patient was taken to the operating room where she was given general anesthesia. She was prepped and draped in the usual sterile fashion. Please see Dr. Garcia's operative report for specifics of the procedure. I was present for the entire case from initial patient positioning to final wound closure. Assistance was provided in patient positioning, tissue retraction, hemostasis, hardware removal, and final wound closure. Patient was then taken to the recovery room in satisfactory condition. I attest to the content of the Intraoperative Record and any orders documented therein. Any exceptions are noted below.
--- NOTE | 2022-05-16 09:50 | Hospitalist Consultation ---
Date of Consultation May 16, 2022 Assessment & Plan (1) S/P hardware removal: Zina Castañeda is an 87-year-old female with a past medical history of insulin- dependent diabetes, lumbar stenosis, GIB, CAD, HTN, and severe dementia who was seen at a prior hospitalization for chest pain and was found to have exposed wires due to right orthopedic hardware failure who presented 05/16 for right knee irrigation and debridement and removal of exposed/failed hardware. We are consulted for medical management of underlying medical issues. Exposed right knee hardware wire, s/p I&D and drainage No preoperative leukocytosis. Preoperative creatinine 0.55, no preop troponin elevation ESR 04/27 43, CRP 6.62 Right knee, leg surgical and blood cultures all collected and pending Pain control, DVT prophylaxis per primary team. Infectious disease course: 04/23 course for UTI with Augmentin Past cultures: 03/05/2022 wound specimen VRE ampicillin and vancomycin resistant, sensitive to daptomycin; 04/2022 urine specimen Proteus ciprofloxacin/levo/Bactrim/ampicillin resistant, 02/2022 urine Proteus with same sensitivities as previously noted, Klebsiella resistant to Macrobid otherwise pansensitive, 12/2021 E. coli pansensitive urine & BC, , 08/2021 BC x1 CND, 05/2021 pseudomonas 07/09 without additional resistance Received preoperative ceftriaxone. Case had been discussed with infectious disease prior to surgery, initially recommended for daptomycin but given clinical picture was not recommended on rediscussion preop. Infectious disease consultation pending, cultures pending Type 2 diabetes mellitus - Lantus 5u preop dose given. At prior hospitalized dose was reduced to 10mg BID lantus + SSI with good control. Pt on pred 20mg daily for PMR - Continue lantus 10u BID, SSI Glucose checks AC/at bedtime Goal BSG 514800 - A1c 6.9% 04/2022 improved from prior A1C 7.8% 08/29\\ COVID-positive Positive on: 04/29/2022 and 05/16/2022 Residual +05/16 Completed a course of Paxlovid Weaned to room air postop, slight oxygen requirement following pain medication Follow clinically, titrate nasal cannula to SPO2 greater than 90% Paroxysmal A. fib Echo 08/29: LVEF 60-65%, no wall motion abnormalities. No valvular disease Continue Coreg Anticoagulation deferred due to dementia, high risk of fall, and prior GI bleed Rate controlled, no acute management at this time - Preop EKG: sinus 2/ PACs, nonspecific T wave abnormalities, no ST segment changes. - Regular at PACU assessment - Preop trop normal Pressure ulcers Bedbound at baseline Wound care consulted Hypertension Continue carvedilol Hyperlipidemia simvastatin temporarily held for potential daptomycin treatment, if not recommended by ID then resume simvastatin 05/17 Spinal stenosis No acute change, continue Tylenol as needed GERD PPI daily PMR/joint pain No acute change, continue Tylenol Continue prednisone daily. Defer stress dosing Chronic R sacral ulcer Continue wound care. (2) Cognitive impairment: (3) Dysphagia: (4) Paroxysmal atrial fibrillation: (5) Hypertension: (6) Polymyalgia rheumatica: (7) Type 2 diabetes mellitus: (8) Wounds, multiple: History of Present Illness Attending Physician: Delonte Garcia MD History of Present Illness Zina Castañeda is an 87-year-old female with a past medical history of insulin- dependent diabetes, lumbar stenosis, GIB, CAD, HTN, and severe dementia who was seen at a prior hospitalization for chest pain and was found to have exposed wires due to right orthopedic hardware failure who presented 05/16 for right knee irrigation and debridement and removal of exposed/failed hardware. We are consulted for medical management of underlying medical issues. She was also recently seen 05/02/2022 for intermittent fevers and was found to have COVID without significant hypoxia. She was discharged to complete a course of back Paxlovid at [facility]. HPI at bedside is limited by severe dementia. While she nods and assent that her name is Zina, and does weakly squeeze hands and wiggle toes on command does not follow other commands or verbalize answers to questions. Medical History: Reviewed in EMR Medications: Reviewed in EMR Surgical History: Reviewed in EMR Allergies: Reviewed in EMR Social History: Reviewed in EMR Code Status: DNR/DNI Allergies Allergy/AdvReac Type Severity Reaction Status Date / Time adhesive Allergy Intermediate SKIN Verified 05/16/22 05:44 BLISTERS tetanus toxoid, adsorbed Allergy Mild SWELLING Verified 05/16/22 05:44 AT SITE codeine AdvReac Intermediate HEART Verified 05/16/22 05:44 PALPITATIONS (RECIEVED MORPHINE IV IN 2004 ADMIT) Home Medications Medication Instructions Recorded Confirmed Type incontinence pad, liner, disp #168 ea 08/11/19 04/18/22 Rx (Overnight Pad For Women) pen needle, diabetic, safety 30 #100 ea 06/28/20 04/18/22 Rx gauge x 1/3" (Novofine Autocover) nystatin 100,000 unit/gram topical 1 applic topical BID PRN rash #60 09/27/20 04/26/22 Rx powder grams blood sugar diagnostic (OneTouch #200 ea 11/14/20 04/18/22 Rx Ultra Blue Test Strip) pen needle,diabetic dual safty 30 #200 ea 11/14/20 04/18/22 Rx gauge x 3/16" (BD AutoShield Duo Pen Needle) diclofenac sodium 1 % topical gel 4 g topical DAILY PRN PAIN R KNEE 05/05/21 05/16/22 History cholecalciferol (vitamin D3) 50 2,000 unit PO QAM #30 caps 05/29/21 05/16/22 Rx mcg (2,000 unit) capsule donepezil 10 mg tablet (Aricept) 10 mg PO HS #90 tabs 05/29/21 05/16/22 Rx prednisone 20 mg tablet 20 mg PO QAM #90 tabs 07/10/21 05/16/22 Rx lancets 30 gauge (ReadyLance #200 ea 07/11/21 04/18/22 Rx Safety Lancets) acetaminophen 325 mg tablet 650 mg PO TID Pain management 09/01/21 05/16/22 History acetaminophen 325 mg tablet 650 mg PO Q4 PRN Fever Or Pain 09/27/21 05/16/22 History carvedilol 3.125 mg tablet (Coreg) 3.125 mg PO BID 12/11/21 05/16/22 History cyanocobalamin (vitamin B-12) 1,000 mcg PO QAM 12/11/21 05/16/22 History 1,000 mcg capsule insulin aspart U-100 100 unit/mL 4 unit subcut QPM 12/11/21 05/16/22 History subcutaneous cartridge (Novolog PenFill U-100 Insulin aspart) ondansetron 4 mg disintegrating 4 mg PO Q6H PRN Nausea And Vomiting 12/11/21 04/26/22 History tablet pantoprazole 40 mg granules 40 mg PO BID Duodenal Ulcers 12/11/21 05/16/22 History delayed-release for susp in packet polyethylene glycol 3350 17 17 g PO Q24H PRN Constipation 12/11/21 04/26/22 History gram/dose oral powder (Miralax) lidocaine HCl 4 % topical cream 1 applic topical QID 04/18/22 04/18/22 History menthol 0.44 %-zinc oxide 20.6 % 1 applic topical BID 04/18/22 04/26/22 History topical ointment (Calmoseptine) potassium chloride 20 mEq 20 meq PO QAM 04/18/22 05/16/22 History tablet,extended release(part/cryst) insulin glargine 100 unit/mL (3 10 unit (0.1 mL) SC QAM #1 mL 04/23/22 05/16/22 Rx mL) subcutaneous pen (Lantus Solostar U-100 Insulin) thiamine HCl (vitamin B1) 100 mg 200 mg PO QAM 30 days #60 tabs 04/23/22 05/16/22 Rx tablet dimethicone 1 ea topical BID 04/26/22 05/16/22 History menthol 0.44 %-zinc oxide 20.6 % 1 applic topical HS 04/26/22 04/26/22 History topical ointment (Calmoseptine) nirmatrelvir 300 mg (150 mg See Rx Instructions PO .COMPLEX 04/29/22 Rx x2)-ritonavir 100 mg tablet,dose #30 ea pack(EUA) (Paxlovid) Patient History Medical History (Updated 05/16/22 @ 10:53 by Aniket Bueno MD) Alzheimer disease Anemia B12 deficiency Chronic SI joint pain Cognitive impairment Cyst of kidney, acquired Dementia Depression Dysphagia Encephalopathy Hx (entered from remote 2019 group home records) Encephalopathy acute Fungal dermatitis Gait instability Gastroesophageal reflux GI bleed History of respiratory failure Hx (entered from remote 2019 group home records) Hx pulmonary embolism Hx (entered from remote 2019 group home records) Hyperlipidemia Hypertension Lumbar facet joint syndrome Osteoporosis Paroxysmal atrial fibrillation Developed intraoperatively on 06/15/2019. Converted to NSR after dilt ggt and treatment of sepsis Polymyalgia rheumatica Polymyalgia rheumatica Prosthetic joint implant failure Sepsis 2018 (pyelonephritis with obstructing calculus) Skin cancer PERSONAL HX MALIGNANT MELANOMA Spinal stenosis, lumbar region without neurogenic claudication Stage III pressure ulcer of sacral region Type 2 diabetes mellitus Type 2 diabetes mellitus Ureterolithiasis Vitamin D deficiency Wounds, multiple Stage III pressure ulcer of sacral region, Open R/L lower leg wounds Follows with [facility] [place] [facility] Surgical History (Updated 05/16/22 @ 10:53 by Aniket Bueno MD) H/O cystoscopy Cyst with L stent (06/15/2019) at [facility]. MAC. Patient given insulin for hyperglycemia and metoprolol and cardizem intraop. Cysto/stent (12/11/21): MAC at [facility]. No issues noted per post-op anesthesia progress note. H/O: hysterectomy History of appendectomy History of knee replacement procedure of left knee History of knee replacement procedure of right knee History of open reduction and internal fixation (ORIF) procedure L HUMEROUS Hx of cholecystectomy Hx of excision of epidermal inclusion cyst Hx of tonsillectomy Presence urogenital implant Family History Sister Diabetes Stroke Brother Diabetes Prostate cancer Father Lung disease Social History Smoking Status: Smoker, status unknown Cigarettes Per Day: UTO; Hx Alcohol Use: No Hx Substance Use: No Preferred Language: Indonesian Communication Ability: Impaired Communication Tools: Facial Expression, Physical Gestures and Lip Movement/Reading Visual Impairment: Limited Hearing Ability: Hard of Hearing Material Requirements Worker Required: No Beliefs That Will Affect Care: None marital status: / Current Living Situation: Correction Current Living Situation Comment: Pt lives at [facility] current occupational status: retired How many Children do You have: 1 Feels Safe at Home: Yes caffeine: No Seatbelt Use: always Assistive Devices: Mechanical Lift Review of Systems Review of Systems: Unobtainable due to cognitive status Physical Exam Physical Exam: General: Somnolent but awakens in PACU. Weak life science teacher strength bilaterally symmetrically, does wiggle toes bilaterally on command. Does not follow other commands or two-step commands. Does not verbalize answers to questions, does not and assent that her name is Zina ESTEVEZENT: Atraumatic, normocephalic. Pupils equal and reactive to light. Pulm: Diminished but without overt wheezes/rales. Symmetrical chest rise. No increase in work of breathing. No respiratory distress. On 2 L of oxygen postop. Cardiac: RRR, -mrg. Radial pulses intact and symmetrical. Abdominal: Nontender, nondistended, soft. BS present. Extremities: Right lower extremity with postoperative wrap around the knee. Cap refill in the right hallux intact. Patient opens eyes to hallux pinch. Sensation/strength testing limited by cognitive status Results & Data Results & Data ([facility]) Vital Signs (Past 12 Hours) Vital Signs Temp Pulse Pulse Resp BP Pulse Ox O2 Del Method 05/16/22 09:23 36.6 C 75 16 148/81 H 98 Oxymask 05/16/22 05:56 Room Air 05/16/22 05:38 36.8 C 88 16 132/89 97 Room Air O2 Flow Rate 05/16/22 09:23 4 05/16/22 05:56 05/16/22 05:38 PG Care Time/CCT Total # of Minutes Spent Total Time Spent with Patient: Total time spent is greater than 50% in coordination of care (as documented) at patient's floor/unit and/or counseling patient: Coding Level of Care Code 66026 Inpt Consult Level 4 Diagnoses S/P hardware removal Z98.890 Cognitive impairment R41.89 Dysphagia R13.10 Paroxysmal atrial fibrillation I48.0 Hypertension I10 Hypertension type: unspecified Polymyalgia rheumatica M35.3 Type 2 diabetes mellitus E11.9 Wounds, multiple T07.XXXA (1) Hypertension Hypertension type: unspecified Qualified Code(s): I10 - Essential (primary) hypertension
--- NOTE | 2022-05-16 10:20 | Anesthesiology Progress Note ---
Date of Service May 16, 2022 Anesthesia Post Procedure Vital Signs Vital Signs: Temp Pulse Pulse Resp BP Pulse Ox O2 Del Method 05/16/22 10:10 36.7 C 86 14 114/82 97 Nasal Cannula 05/16/22 10:00 81 16 118/70 94 Room Air 05/16/22 09:50 79 17 137/75 97 Oxymask 05/16/22 09:40 80 14 124/85 95 Oxymask 05/16/22 09:30 73 18 132/87 97 Oxymask 05/16/22 09:23 36.6 C 75 16 148/81 H 98 Oxymask 05/16/22 05:56 Room Air 05/16/22 05:38 36.8 C 88 16 132/89 97 Room Air O2 Flow Rate 05/16/22 10:10 2 05/16/22 10:00 05/16/22 09:50 2 05/16/22 09:40 4 05/16/22 09:30 4 05/16/22 09:23 4 05/16/22 05:56 05/16/22 05:38 Transfer of Care Handoff Completed per policy Notes Mental Status: alert / awake / arousable Patient Amnestic to Procedure: Yes Nausea / Vomiting: adequately controlled Pain: adequately controlled Airway Patency, RR, SpO2: stable & adequate BP & HR: stable & adequate Hydration State: stable & adequate Anesthetic Complications: no major complications apparent
--- NOTE | 2022-05-16 10:32 | Fluoroscopy Report ---
FL knee RT 1 or 2V CLINICAL HISTORY: RT KNEE WIRE REMOVAL COMPARISON STUDY: Right knee 04/19/2022. FLUOROSCOPY TIME: 8 seconds. FINDINGS: 2 fluoroscopic spot images of the right knee demonstrate a constrained right total knee art hroplasty. The cerclage wire has been removed. There are few tiny linear metallic foreign bodies екатерина ining within the lateral aspect of the knee consistent with wire fragments. IMPRESSION: Fluoroscopic assistance provided for removal of a cerclage wire within the right knee. ACT 112: Negative or not required by law. Electronically signed by: Arsalan Mike M.D. 05/16/2022 10:31 AM
[2022-05-16] MEDS ORDERED: diphenhydrAMINE 50 MG/ML VIAL IV PRN (11:10)
[2022-05-16] MEDS ORDERED: bisacodyL 10 MG SUPP PR PRN (11:10)
[2022-05-16] MEDS ORDERED: DEXTROSE 50% 50 ML SYRINGE IV PRN (11:10)
[2022-05-16] MEDS ORDERED: GLUCOSE 40% GEL 15 GM TUBE PO PRN (11:10)
[2022-05-16] MEDS ORDERED: PHARMACY GLYCEMIC MGMT CONSULT PRN (11:10)
[2022-05-16] MEDS ORDERED: GLUCAGON FOR INJ 1 MG VIAL SQ PRN (11:10)
[2022-05-16] MEDS ORDERED: [UNRECOGNIZED DRUG - OTHER] SCH (11:10)
[2022-05-16] MEDS ORDERED: MAGNESIUM HYDROXIDE SUSP 30 ML UDC PO PRN (11:10)
[2022-05-16] MEDS ORDERED: GLUCOSE 10 TAB/TUBE PO PRN (11:10)
[2022-05-16] MEDS ORDERED: ALUMINUM/MAGNESIUM SUSP 30 ML UDC PO PRN (11:10)
[2022-05-16] MEDS ORDERED: METOCLOPRAMIDE HCL INJ 5 MG/ML 2 ML VIAL IV PRN (11:10)
[2022-05-16] MEDS ORDERED: POLYETHYLENE (MIRALAX) 17 GM PACK PO PRN (11:10)
[2022-05-16] MEDS ORDERED: CARBOHYDRATES FOR HYPOGLYCEMIA PO PRN (11:10)
[2022-05-16] MEDS ORDERED: INFLUENZA VACCINE HIGH DOSE PF 65+ 0.7 ML SYR IM ONE (11:22)
[2022-05-16] MEDS ORDERED: PNEUMOCOCCAL POLYSACCHARIDES 25 MCG/0.5 ML VIAL/SYR IM ONE (11:22)
[2022-05-16] MEDS: SODIUM CHLORIDE 0.9% 1000ML 1,000 ML IV SCH ×2 (12:02→21:41)
[2022-05-16] MEDS: INSULIN ASPART PER UNIT SC SCH ×3 (12:52→20:52)
[2022-05-16] MEDS: ACETAMINOPHEN 500 MG TAB PO SCH ×3 (14:09→21:28)
[2022-05-16] MEDS: FERROUS GLUCONATE 324 MG TAB PO SCH (18:12)
[2022-05-16] MEDS: ASCORBIC ACID 500 MG TAB PO SCH (18:12)
[2022-05-16] MEDS: ASPIRIN 81 MG ECTAB PO SCH ×2 (21:11→21:27)
[2022-05-16] MEDS: MENTHOL-ZINC OXIDE 360 APPLN/120 GM TUBE EXT SCH (21:11)
[2022-05-16] MEDS: DOCUSATE SODIUM 100 MG CAP PO SCH ×2 (21:11→21:27)
[2022-05-16] MEDS: EUCERIN CR 120 GM JAR TOP SCH (21:11)
[2022-05-16] MEDS: carvediloL 3.125 MG TAB PO SCH ×2 (21:12→21:27)
[2022-05-16] MEDS: SENNA 8.6 MG TAB PO SCH ×2 (21:12→21:28)
[2022-05-16] MEDS: DONEPEZIL HCL 10 MG TAB PO SCH ×2 (21:12→21:27)
[2022-05-16] MEDS: PANTOprazole 40 MG TAB PO SCH ×2 (21:12→21:27)
[2022-05-17] MEDS: ACETAMINOPHEN 500 MG TAB PO SCH ×3 (05:52→20:07)
[2022-05-17 06:52] LABS: Hematocrit (blood only) 37.3 % (34.1-44.9); Hemoglobin 11.9 g/dl (12.0-16.0); Mean Corpuscular Hemoglobin 31.3 pg (25.0-34.0); Mean Corpuscular Hgb Conc 31.9 g/dL (32.0-36.0); Mean Corpuscular Volume 98.2 fL (80.0-100.0); Mean Platelet Volume 9.5 fL (9.4-12.3); Platelet Count 236 K/uL (130-400); RDW Coefficient of Variation 14.1 % (11.5-14.5); RDW Standard Deviation 50.3 fL (36.4-46.3); White Blood Count 10.29 K/ul (4.8-10.8)
[2022-05-17 07:38] LABS: BUN Creatinine Ratio 65.2 (10-20); Creatinine Clr Calc Pharmacy 80.9 ml/min; Est GFR (African American) 104.4 ml/min; Est GFR (Non-African American) 90.1 ml/min; Potassium 3.2 mmol/L (3.5-5.1)
[2022-05-17] MEDS ORDERED: DAPTOmycin 225 MG in SYRINGE 0 ML IV SCH (08:00)
[2022-05-17] MEDS ORDERED: cefTRIAXone SODIUM 1,000 MG in DEXTROSE 5% 50 ML IV SCH (09:00)
[2022-05-17] MEDS: INSULIN ASPART PER UNIT SC SCH ×4 (09:16→20:23)
[2022-05-17] MEDS: EUCERIN CR 120 GM JAR TOP SCH ×2 (09:20→20:07)
[2022-05-17] MEDS: CYANOCOBALAMIN (B-12) 500 MCG TABLET PO SCH (09:21)
[2022-05-17] MEDS: CHOLECALCIFEROL 1,000 UNITS 25 MCG TAB PO SCH (09:22)
[2022-05-17] MEDS: PANTOprazole 40 MG TAB PO SCH ×2 (09:22→20:07)
[2022-05-17] MEDS: ASPIRIN 81 MG ECTAB PO SCH ×2 (09:22→20:08)
[2022-05-17] MEDS: MULTIVITAMIN TAB PO SCH (09:22)
[2022-05-17] MEDS: FERROUS GLUCONATE 324 MG TAB PO SCH ×2 (09:22→16:04)
[2022-05-17] MEDS: POTASSIUM CHLORIDE CRTAB 20 MEQ TABCR PO SCH (09:22)
[2022-05-17] MEDS: carvediloL 3.125 MG TAB PO SCH ×2 (09:22→20:08)
[2022-05-17] MEDS: ASCORBIC ACID 500 MG TAB PO SCH ×2 (09:22→16:04)
[2022-05-17] MEDS: THIAMINE HCL 100 MG TAB PO SCH (09:22)
[2022-05-17] MEDS: predniSONE 20 MG TAB PO SCH (09:22)
[2022-05-17] MEDS: DOCUSATE SODIUM 100 MG CAP PO SCH ×2 (09:23→20:07)
[2022-05-17] MEDS: LANTUS PER UNIT CHARGE SQ SCH (09:28)
[2022-05-17] MEDS ORDERED: POTASSIUM CHLORIDE CRTAB 20 MEQ TABCR PO STA (09:47)
[2022-05-17] MEDS ORDERED: predniSONE 20 MG TAB PO STA (09:48)
--- NOTE | 2022-05-17 13:46 | Orthopedic Progress Note ---
Date of Service May 17, 2022 Assessment & Plan (1) S/P hardware removal: Plan: Pt is doing well and is in good spirits Cultures are still pending waiting final results for Infectious disease recommendations for choice of antibiotic preliminary results shows probable growth Enterococcus and other cultures are reincubating Started on Daptomycin Anticipated PICC placement after today or tomorrow prior to d/c back to [facility] ESR/CRP order for weekly draws placed in chart for when she is d/c will need script for antibiotic once this is decided Dressing is intact, not soiled dressing to be changed POD#2 OOB as tolerated to bedside chair with assistance able to weightbear on the RLE She will be seen one week post d/c in the office and followed by our office/infectious disease. Admission and Anticipated Discharge Date Admission Date: May 16, 2022 Subjective Pt is a 87 y.o female who is post op day #1 s/p I&D with removal of hardware,(wire) from right knee on 05/16/22. She was seen this afternoon approximately at 1pm. She was alert laying in her bed. She reports some pain in the right knee. Rates 4/10. She states she has some pain when she tries to bend the knee. She denies any fever, chills, CP or SOB. Review of Systems Review of Systems: Please see HPI Physical Exam Physical Exam: General: Pt is alert no acute distress answering questions appropriately Integumentary and Musculoskeletal: dressing is intact. This is dry, non-soiled. Skin that is exposed is normal in color and temperature. Pt is able to slightly flex the knee to approx 25 degrees and straighten. Able to move toes. RLE is NVI Results & Data ([facility]) Vital Signs (Past 12 Hours) Vital Signs Temp Pulse Resp BP Pulse Ox O2 Del Method 05/17/22 08:38 36.9 C 85 16 118/67 96 Room Air 05/17/22 04:13 36.9 C 73 16 114/69 94 Room Air 05/17/22 04:12 36.7 C 75 16 125/57 L 96 Laboratory Results 05/17/22 05/17/22 05/17/22 Range/Units 12:24 08:09 06:29 WBC (4.8-10.8) K/ul RBC (3.93-5.22) M/uL Hgb (12.0-16.0) g/dl Hct (34.1-44.9) % MCV (80.0-100.0) fL MCH (25.0-34.0) pg MCHC (32.0-36.0) g/dL RDW Std Deviation (36.4-46.3) fL RDW Coeff of Junie (11.5-14.5) % Plt Count (130-400) K/uL MPV (9.4-12.3) fL Sodium 138 (136-145) mmol/L Potassium 3.2 L (3.5-5.1) mmol/L Chloride 106 (98-107) mmol/L Carbon Dioxide 24 (21-32) mmol/L Anion Gap 8 (3-11) BUN 30 H (6-23) mg/dl Creatinine 0.46 L (0.6-1.2) mg/dl Est Cr Clr Drug Dosing 80.9 ml/min Est GFR ( Amer) 104.4 ml/min Est GFR (Non-Af Amer) 90.1 ml/min BUN/Creatinine Ratio 65.2 H (10-20) Glucose 103 H (70-99(Fasting)) mg/dl POC Glucose 141 H 111 H (70-99) mg/dl Calcium 9.0 (8.5-10.1) mg/dl 05/17/22 05/16/22 05/16/22 Range/Units 06:29 20:31 16:54 WBC 10.29 (4.8-10.8) K/ul RBC 3.80 L (3.93-5.22) M/uL Hgb 11.9 L (12.0-16.0) g/dl Hct 37.3 (34.1-44.9) % MCV 98.2 (80.0-100.0) fL MCH 31.3 (25.0-34.0) pg MCHC 31.9 L (32.0-36.0) g/dL RDW Std Deviation 50.3 H (36.4-46.3) fL RDW Coeff of Junie 14.1 (11.5-14.5) % Plt Count 236 (130-400) K/uL MPV 9.5 (9.4-12.3) fL Sodium (136-145) mmol/L Potassium (3.5-5.1) mmol/L Chloride (98-107) mmol/L Carbon Dioxide (21-32) mmol/L Anion Gap (3-11) BUN (6-23) mg/dl Creatinine (0.6-1.2) mg/dl Est Cr Clr Drug Dosing ml/min Est GFR ( Amer) ml/min Est GFR (Non-Af Amer) ml/min BUN/Creatinine Ratio (10-20) Glucose (70-99(Fasting)) mg/dl POC Glucose 111 H 156 H (70-99) mg/dl Calcium (8.5-10.1) mg/dl Microbiology 05/16/22 Unknown Gram Stain - Final Knee,Right Aerobic and Anaerobic Culture - Preliminary Probable Enterococcus 05/16/22 Unknown Gram Stain - Final Knee,Right Aerobic and Anaerobic Culture - Preliminary Probable Enterococcus 05/16/22 Unknown Gram Stain - Final Knee,Right Aerobic and Anaerobic Culture - Preliminary Pin-point growth present, reincubating. 05/16/22 Unknown Gram Stain - Final Knee,Right Aerobic and Anaerobic Culture - Preliminary Probable Enterococcus 05/16/22 Unknown Gram Stain - Final Knee Aerobic and Anaerobic Culture - Preliminary Pin-point growth present, reincubating. 05/16/22 Unknown Gram Stain - Final Knee,Right Aerobic and Anaerobic Culture - Preliminary Pin-point growth present, reincubating. 05/16/22 08:13 Aerobic Blood Culture - Preliminary Blood No growth in Aerobic bottle after 24 hours. 05/16/22 08:13 Aerobic Blood Culture - Preliminary Blood No growth in Aerobic bottle after 24 hours. Anaerobic Blood Culture - Preliminary No growth in Anaerobic bottle after 24 hours.
[2022-05-17] MEDS ORDERED: DAPTOmycin 125 MG in SYRINGE 0 ML IV ONE (14:45)
[2022-05-17] MEDS: MENTHOL-ZINC OXIDE 360 APPLN/120 GM TUBE EXT SCH (16:02)
--- NOTE | 2022-05-17 18:22 | Hospitalist Progress Note ---
Date of Service May 17, 2022 Assessment & Plan (1) S/P hardware removal: Plan: POD #1 s/p I & D, removal of right knee hardware - Dr Garcia intra-op cultures growing probable enterococcus does have prior h/o VRE agree with IV daptomycin as currently ordered defer management to primary orthopedic team (2) Cognitive impairment: Plan: baseline confusion from dementia I took care of her about 4-6 weeks ago in the hospital and her mental status was similar then cont supportive care (3) Dysphagia: Plan: no issues at this time (4) Paroxysmal atrial fibrillation: Plan: remains on coreg 3.125mg BID is not on chronic anticoagulation at baseline (5) Hypertension: Plan: continue coreg (6) Polymyalgia rheumatica: Plan: takes chronic prednisone 20mg/day did not receive any stress dosing yesterday she appears volume contracted today with borderline tachycardia will resume IV fluids and give additional 20mg of prednisone on top of usual 20mg daily would recommend an additional 10mg of prednisone tomorrow then resume her usual 20mg/day on 05/19/22 (7) Type 2 diabetes mellitus: Plan: adjust novolog SSI to carb ratio of 1:15 adjust goal range, given her age, to 120-160 cont lantus 10 units daily (8) Wounds, multiple: Plan: optifoam dressings, etc (9) DVT prophylaxis: Plan: asa 81mg BID per orthopedics (10) Hx pulmonary embolism: Plan: noted (11) Hypokalemia: Plan: takes K supplement chronically despite such her K is low this am give additional PO replacement and add KCL to basal IV fluids repeat BMP with mag AM Plan will continue to follow Admission and Anticipated Discharge Date Admission Date: May 16, 2022 Subjective patient pleasantly confused during the visit unable to offer any meaningful history or ROS she said we "needed to go out to eat" per staff no major issues during the day very poor oral intake - either solids or liquids little UOP per staff no significant pain noted Review of Systems Review of Systems: Unobtainable due to cognitive status Physical Exam Physical Exam: gen - pleasantly confused, NAD mouth - oral mucosa dry neck - no JVD heart - irregular (extra beats), s1 s2, no murmur lungs - CTA b/l abd - protuberant but soft, BS+, NT ext - large BABITA wrap dressing on majority of RLE; pulses both feet 2+ psych - oriented to person only Results & Data Results & Data ([facility]) Vital Signs (Past 12 Hours) Vital Signs Temp Pulse Resp BP Pulse Ox O2 Del Method 05/17/22 15:42 37.0 C 99 H 16 111/70 99 Room Air 05/17/22 08:38 36.9 C 85 16 118/67 96 Room Air Laboratory Results Laboratory Results - last 24 hr 05/17/22 05/17/22 05/17/22 06:29 06:29 08:09 WBC 10.29 RBC 3.80 L Hgb 11.9 L Hct 37.3 MCV 98.2 MCH 31.3 MCHC 31.9 L RDW Std Deviation 50.3 H RDW Coeff of Junie 14.1 Plt Count 236 MPV 9.5 Sodium 138 Potassium 3.2 L Chloride 106 Carbon Dioxide 24 Anion Gap 8 BUN 30 H Creatinine 0.46 L Est Cr Clr Drug Dosing 80.9 Est GFR ( Amer) 104.4 Est GFR (Non-Af Amer) 90.1 BUN/Creatinine Ratio 65.2 H Glucose 103 H POC Glucose 111 H Calcium 9.0 05/17/22 05/17/22 05/17/22 12:24 16:56 20:18 WBC RBC Hgb Hct MCV MCH MCHC RDW Std Deviation RDW Coeff of Junie Plt Count MPV Sodium Potassium Chloride Carbon Dioxide Anion Gap BUN Creatinine Est Cr Clr Drug Dosing Est GFR ( Amer) Est GFR (Non-Af Amer) BUN/Creatinine Ratio Glucose POC Glucose 141 H 190 H 225 H Calcium PG Care Time/CCT Total # of Minutes Spent Total Time Spent with Patient: Total time spent is greater than 50% in coordination of care (as documented) at patient's floor/unit and/or counseling patient: Coding Level of Care Code 51143 Subseq Hosp Care Lvl 2 Diagnoses S/P hardware removal Z98.890 Cognitive impairment R41.89 Dysphagia R13.10 Paroxysmal atrial fibrillation I48.0 Hypertension I10 Hypertension type: unspecified Polymyalgia rheumatica M35.3 Type 2 diabetes mellitus E11.9 Wounds, multiple T07.XXXA DVT prophylaxis Z29.9 Hx pulmonary embolism Z86.711 Hypokalemia E87.6 (1) Hypertension Hypertension type: unspecified Qualified Code(s): I10 - Essential (primary) hypertension
[2022-05-17] MEDS: NSS + 20MEQ KCL 20 MEQ/1,000 ML BAG IV SCH (20:06)
[2022-05-17] MEDS: DONEPEZIL HCL 10 MG TAB PO SCH (20:08)
[2022-05-17] MEDS: SENNA 8.6 MG TAB PO SCH (20:08)
[2022-05-18] MEDS: ACETAMINOPHEN 500 MG TAB PO SCH ×3 (06:03→21:48)
[2022-05-18] MEDS ORDERED: predniSONE 10 MG TABLET PO ONE (08:32)
[2022-05-18] MEDS ORDERED: DAPTOmycin 350 MG in SYRINGE 0 ML IV SCH (09:00)
[2022-05-18] MEDS: INSULIN ASPART PER UNIT SC SCH ×4 (09:11→21:57)
[2022-05-18] MEDS: NSS + 20MEQ KCL 20 MEQ/1,000 ML BAG IV SCH ×2 (09:23→22:14)
[2022-05-18] MEDS: ASCORBIC ACID 500 MG TAB PO SCH ×2 (09:29→18:18)
[2022-05-18] MEDS: FERROUS GLUCONATE 324 MG TAB PO SCH ×2 (09:29→18:17)
[2022-05-18] MEDS: predniSONE 20 MG TAB PO SCH (09:29)
[2022-05-18] MEDS: CYANOCOBALAMIN (B-12) 500 MCG TABLET PO SCH (09:29)
[2022-05-18] MEDS: THIAMINE HCL 100 MG TAB PO SCH (09:30)
[2022-05-18] MEDS: ASPIRIN 81 MG ECTAB PO SCH ×2 (09:30→21:51)
[2022-05-18] MEDS: DOCUSATE SODIUM 100 MG CAP PO SCH ×2 (09:31→21:48)
[2022-05-18] MEDS: PANTOprazole 40 MG TAB PO SCH ×2 (09:31→21:48)
[2022-05-18] MEDS: CHOLECALCIFEROL 1,000 UNITS 25 MCG TAB PO SCH (09:31)
[2022-05-18] MEDS: POTASSIUM CHLORIDE CRTAB 20 MEQ TABCR PO SCH (09:31)
[2022-05-18] MEDS: carvediloL 3.125 MG TAB PO SCH ×2 (09:32→21:49)
[2022-05-18] MEDS: MULTIVITAMIN TAB PO SCH (09:33)
[2022-05-18] MEDS: EUCERIN CR 120 GM JAR TOP SCH ×2 (09:33→21:51)
[2022-05-18] MEDS: DAPTOmycin 450 MG in SYRINGE 0 ML IV SCH (09:48)
[2022-05-18] MEDS: LANTUS PER UNIT CHARGE SQ SCH (09:48)
[2022-05-18 10:15] LABS: C Reactive Protein 8.03 mg/dl (0-0.5); Calcium 9.3 mg/dl (8.5-10.1); Creatinine Clr Calc Pharmacy 74.5 ml/min; Est GFR (African American) 101.6 ml/min; Est GFR (Non-African American) 87.6 ml/min; Magnesium 1.6 mg/dl (1.7-2.4)
--- NOTE | 2022-05-18 10:25 | Orthopedic Progress Note ---
Date of Service May 18, 2022 Assessment & Plan (1) S/P hardware removal: Plan: Pt is doing well and is in good spirits Knee Cultures preliminary results shows probable growth Enterococcus andenterococcus faecium VRE Blood cultures show no growth after [address] Rossi with [facility] who recommended send patient out with PICC line and IV daptomycin 6mg/kg x 6 weeks ESR 28, CRP 8/ this AM ESR/CRP and BUN/Cr order for weekly draws placed in chart for when she is d/c Script for abx placed in patient's chart Dressing was changed today. Nursing/SNF may reinforce as needed OOB as tolerated to bedside chair with assistance, able to weightbear on the RLE She will be seen one week post d/c in the office and followed by our office/infectious disease. Anticipate d/c today after PICC placement pending she is medically stable and [facility] is able to accept her today - Case management following Admission and Anticipated Discharge Date Admission Date: May 16, 2022 Subjective Pt seen and examined bedside this morning. She is alert and awake. She says that she is having pain in her knee but that is normal for her. She denies any fevers or chills. Physical Exam Physical Exam: General: Pt laying in hospital bed awake and alert, in NAD, calm and cooperative during exam Lower Extremity: Dressing in tact and not saturated. Dressing taken down that revealed incisions clean, dry and with minimal drainage and no surrounding erythema, warmth or purulent drainage. Pt is able to wiggle her toes and pump her ankle. She has pneumatic boot and foot pumps on. Calf supple and non tender. NVI with sensation to light touch distally and good distal pulses present. Lower extremity noted to have good color and temperature with no signs of vascular or lymphatic insufficiency. Incisions re-dressed with xeroform, 4x4s and tegaderm Results & Data ([facility]) Vital Signs (Past 12 Hours) Vital Signs Temp Pulse Resp BP Pulse Ox O2 Del Method 05/18/22 07:28 36.9 C 64 16 111/64 98 Room Air Laboratory Results Microbiology 05/16/22 08:13 Aerobic Blood Culture - Preliminary Blood No growth in Aerobic bottle after 48 hours. Anaerobic Blood Culture - Preliminary No growth in Anaerobic bottle after 48 hours. 05/16/22 08:13 Aerobic Blood Culture - Preliminary Blood No growth in Aerobic bottle after 48 hours. Anaerobic Blood Culture - Final 05/16/22 Unknown Gram Stain - Final Knee,Right Aerobic and Anaerobic Culture - Preliminary Enterococcus faecium VRE 05/16/22 Unknown Gram Stain - Final Knee,Right Aerobic and Anaerobic Culture - Preliminary Enterococcus faecium VRE 05/16/22 Unknown Gram Stain - Final Knee,Right Aerobic and Anaerobic Culture - Preliminary Pin-point growth present, reincubating. 05/16/22 Unknown Gram Stain - Final Knee,Right Aerobic and Anaerobic Culture - Preliminary Enterococcus faecium VRE 05/16/22 Unknown Gram Stain - Final Knee Aerobic and Anaerobic Culture - Preliminary Staphylococcus species 05/16/22 Unknown Gram Stain - Final Knee,Right Aerobic and Anaerobic Culture - Preliminary Pin-point growth present, reincubating.
[2022-05-18] MEDS ORDERED: MAGNESIUM SULFATE / D5W 1 GM/100 ML BAG IV ONE (10:39)
--- NOTE | 2022-05-18 15:24 | Hospitalist Progress Note ---
Date of Service May 18, 2022 Assessment & Plan (1) S/P hardware removal: Plan: POD #2 s/p I & D, removal of right knee hardware - Dr Garcia intra-op cultures have grown VRE PICC line placement for long course of IV daptomycin defer management to primary orthopedic team (2) Cognitive impairment: Plan: baseline confusion from dementia I took care of her about 4-6 weeks ago in the hospital and her mental status was similar then cont supportive care no Rx needed (3) Dysphagia: Plan: no issues at this time (4) Paroxysmal atrial fibrillation: Plan: remains on coreg 3.125mg BID is not on chronic anticoagulation at baseline (5) Hypertension: Plan: continue coreg (6) Polymyalgia rheumatica: Plan: takes chronic prednisone 20mg/day did not receive any stress dosing day of surgery gave 20mg of additional prednisone yesterday will give 10mg of additional prednisone today then resume 20mg/day - chronic dosing - tomorrow volume status much better today - can d/c IV fluids (7) Type 2 diabetes mellitus: Plan: adjusted novolog SSI to carb ratio of 1:15 BSGs will improve with resuming typical prednisone dosing and as we get further away from her surgery cont lantus 10 units daily (8) Wounds, multiple: Plan: optifoam dressings, etc (9) DVT prophylaxis: Plan: asa 81mg BID per orthopedics (10) Hx pulmonary embolism: Plan: noted asa 81mg BID for prophylaxis (11) Hypokalemia: Plan: improved today to 4 cont usual daily dose of 20meq/day of k-dur (12) Hypomagnesemia: Plan: replace IV mag repeat level am Plan will continue to follow Admission and Anticipated Discharge Date Admission Date: May 16, 2022 Subjective patient more sprightly today during the visit more talkative like prior visits she is unable to offer meaningful history or review of systems she seemed to be indicating, however, that her right leg was hurting eating better today - eating 50-80% of meals at minimum Review of Systems Review of Systems: Unobtainable due to cognitive status Physical Exam Physical Exam: gen - pleasantly confused, NAD, looks better today mouth - MMM neck - no JVD heart - irregular (extra beats), s1 s2, no murmur lungs - CTA b/l abd - soft NT ND BS+ ext - dressings intact RLE; pulses both feet 2+ psych - oriented to person only Results & Data Results & Data ([facility]) Vital Signs (Past 12 Hours) Vital Signs Temp Pulse Resp BP Pulse Ox O2 Del Method 05/18/22 15:19 37.1 C 66 16 108/56 L 96 Room Air 05/18/22 08:45 Room Air 05/18/22 07:28 36.9 C 64 16 111/64 98 Room Air Laboratory Results Laboratory Results - last 24 hr 05/18/22 05/18/22 05/18/22 08:09 08:11 08:11 ESR 28 Sodium 138 Potassium 4.0 D Chloride 110 H Carbon Dioxide 23 Anion Gap 5 BUN 26 H Creatinine 0.50 L Est Cr Clr Drug Dosing 74.5 Est GFR ( Amer) 101.6 Est GFR (Non-Af Amer) 87.6 BUN/Creatinine Ratio 52.0 H Glucose 113 H POC Glucose 131 H Calcium 9.3 Magnesium 1.6 L Total Creatine Kinase C-Reactive Protein 8.03 H 05/18/22 05/18/22 05/18/22 08:11 12:31 17:17 ESR Sodium Potassium Chloride Carbon Dioxide Anion Gap BUN Creatinine Est Cr Clr Drug Dosing Est GFR ( Amer) Est GFR (Non-Af Amer) BUN/Creatinine Ratio Glucose POC Glucose 220 H 183 H Calcium Magnesium Total Creatine Kinase 22 L C-Reactive Protein 05/18/22 05/18/22 20:26 20:29 ESR Sodium Potassium Chloride Carbon Dioxide Anion Gap BUN Creatinine Est Cr Clr Drug Dosing Est GFR ( Amer) Est GFR (Non-Af Amer) BUN/Creatinine Ratio Glucose POC Glucose 245 H 215 H Calcium Magnesium Total Creatine Kinase C-Reactive Protein PG Care Time/CCT Total # of Minutes Spent Total Time Spent with Patient: Total time spent is greater than 50% in coordination of care (as documented) at patient's floor/unit and/or counseling patient: Coding Level of Care Code 09826 Subseq Hosp Care Lvl 2 Diagnoses S/P hardware removal Z98.890 Cognitive impairment R41.89 Dysphagia R13.10 Paroxysmal atrial fibrillation I48.0 Hypertension I10 Hypertension type: unspecified Polymyalgia rheumatica M35.3 Type 2 diabetes mellitus E11.9 Wounds, multiple T07.XXXA DVT prophylaxis Z29.9 Hx pulmonary embolism Z86.711 Hypokalemia E87.6 Hypomagnesemia E83.42 (1) Hypertension Hypertension type: unspecified Qualified Code(s): I10 - Essential (primary) hypertension
[2022-05-18] MEDS: traMADol HCL 50 MG TABLET PO PRN (18:23)
[2022-05-18] MEDS: DONEPEZIL HCL 10 MG TAB PO SCH (21:48)
[2022-05-18] MEDS: SENNA 8.6 MG TAB PO SCH (21:48)
[2022-05-18] MEDS: MENTHOL-ZINC OXIDE 360 APPLN/120 GM TUBE EXT SCH (21:52)
[2022-05-19] MEDS: ACETAMINOPHEN 500 MG TAB PO SCH ×3 (05:58→22:39)
[2022-05-19 07:34] LABS: BUN Creatinine Ratio 25.8 (10-20); Calcium 9.2 mg/dl (8.5-10.1); Est GFR (African American) 94.6 ml/min; Est GFR (Non-African American) 81.6 ml/min; Magnesium 1.7 mg/dl (1.7-2.4); Potassium 3.7 mmol/L (3.5-5.1)
[2022-05-19] MEDS: THIAMINE HCL 100 MG TAB PO SCH (09:06)
[2022-05-19] MEDS: CHOLECALCIFEROL 1,000 UNITS 25 MCG TAB PO SCH (09:06)
[2022-05-19] MEDS: FERROUS GLUCONATE 324 MG TAB PO SCH ×2 (09:06→17:22)
[2022-05-19] MEDS: PANTOprazole 40 MG TAB PO SCH ×2 (09:06→22:40)
[2022-05-19] MEDS: ASCORBIC ACID 500 MG TAB PO SCH ×2 (09:07→17:22)
[2022-05-19] MEDS: CYANOCOBALAMIN (B-12) 500 MCG TABLET PO SCH (09:07)
[2022-05-19] MEDS: predniSONE 20 MG TAB PO SCH (09:07)
[2022-05-19] MEDS: MULTIVITAMIN TAB PO SCH (09:07)
[2022-05-19] MEDS: DOCUSATE SODIUM 100 MG CAP PO SCH ×2 (09:08→22:41)
[2022-05-19] MEDS: POTASSIUM CHLORIDE CRTAB 20 MEQ TABCR PO SCH (09:08)
[2022-05-19] MEDS: carvediloL 3.125 MG TAB PO SCH ×2 (09:08→22:45)
[2022-05-19] MEDS: ASPIRIN 81 MG ECTAB PO SCH ×2 (09:08→22:41)
[2022-05-19] MEDS: EUCERIN CR 120 GM JAR TOP SCH ×2 (09:09→22:41)
[2022-05-19] MEDS: INSULIN ASPART PER UNIT SC SCH ×4 (09:09→22:37)
[2022-05-19] MEDS: LANTUS PER UNIT CHARGE SQ SCH (09:11)
[2022-05-19] MEDS: DAPTOmycin 450 MG in SYRINGE 0 ML IV SCH (09:19)
--- NOTE | 2022-05-19 20:04 | Hospitalist Progress Note ---
Date of Service May 19, 2022 Assessment & Plan (1) S/P hardware removal: Plan: POD #3 s/p I & D, removal of right knee hardware - Dr Garcia intra-op cultures have grown VRE and coag neg staph PICC line placement for long course of IV daptomycin defer management to primary orthopedic team (2) Cognitive impairment: Plan: baseline confusion from dementia I took care of her about 4-6 weeks ago in the hospital and her mental status was similar then cont supportive care no Rx needed (3) Dysphagia: Plan: no issues at this time (4) Paroxysmal atrial fibrillation: Plan: remains on coreg 3.125mg BID is not on chronic anticoagulation at baseline (5) Hypertension: Plan: continue coreg occasional high reading but most are 110s and 120s systolically no changes today (6) Polymyalgia rheumatica: Plan: takes chronic prednisone 20mg/day s/p stress dosing ced-operatively now back to usual dose of 20mg/day (7) Type 2 diabetes mellitus: Plan: cont lantus 10 units daily cont novolog SSI (8) Wounds, multiple: Plan: optifoam dressings, etc (9) DVT prophylaxis: Plan: asa 81mg BID per orthopedics (10) Hx pulmonary embolism: Plan: noted asa 81mg BID for prophylaxis (11) Hypokalemia: Plan: improved/stable cont usual daily dose of 20meq/day of k-dur (12) Hypomagnesemia: Plan: replaced resolved likely would benefit from once daily mag oxide Plan will continue to follow with you Admission and Anticipated Discharge Date Admission Date: May 16, 2022 Subjective patient very awake, alert but pleasantly confused denies pain in right knee or leg otherwise unable to offer any additional meaningful history or ROS eating fair per nursing flowsheets incontinent of urine Review of Systems Review of Systems: Unobtainable due to cognitive status Physical Exam Physical Exam: gen - pleasantly confused, NAD, very awake & talkative today mouth - MMM neck - no JVD heart - RRR, s1 s2, no murmur lungs - CTA b/l abd - soft NT ND BS+ ext - dressings intact RLE; pulses both feet 2+ psych - oriented to person only Results & Data Results & Data ([facility]) Vital Signs (Past 12 Hours) Vital Signs Temp Pulse Resp BP Pulse Ox O2 Del Method 05/19/22 14:57 36.9 C 79 16 111/68 97 Room Air 05/19/22 09:15 Room Air Laboratory Results Laboratory Results - last 24 hr 05/18/22 05/18/22 05/19/22 20:26 20:29 06:55 Sodium 138 Potassium 3.7 Chloride 109 H Carbon Dioxide 26 Anion Gap 3 BUN 16 Creatinine 0.62 Est Cr Clr Drug Dosing 60.0 Est GFR ( Amer) 94.6 Est GFR (Non-Af Amer) 81.6 BUN/Creatinine Ratio 25.8 H Glucose 124 H POC Glucose 245 H 215 H Calcium 9.2 Magnesium 1.7 05/19/22 05/19/22 05/19/22 08:05 12:32 17:18 Sodium Potassium Chloride Carbon Dioxide Anion Gap BUN Creatinine Est Cr Clr Drug Dosing Est GFR ( Amer) Est GFR (Non-Af Amer) BUN/Creatinine Ratio Glucose POC Glucose 126 H 151 H 205 H Calcium Magnesium Diagnostic Findings intra-op cultures - coag neg staph, VRE PG Care Time/CCT Total # of Minutes Spent Total Time Spent with Patient: Total time spent is greater than 50% in coordination of care (as documented) at patient's floor/unit and/or counseling patient: Coding Level of Care Code 73702 Subseq Hosp Care Lvl 1 Diagnoses S/P hardware removal Z98.890 Cognitive impairment R41.89 Dysphagia R13.10 Paroxysmal atrial fibrillation I48.0 Hypertension I10 Hypertension type: unspecified Polymyalgia rheumatica M35.3 Type 2 diabetes mellitus E11.9 Wounds, multiple T07.XXXA DVT prophylaxis Z29.9 Hx pulmonary embolism Z86.711 Hypokalemia E87.6 Hypomagnesemia E83.42 (1) Hypertension Hypertension type: unspecified Qualified Code(s): I10 - Essential (primary) hypertension
[2022-05-19] MEDS: DONEPEZIL HCL 10 MG TAB PO SCH (22:39)
[2022-05-19] MEDS: SENNA 8.6 MG TAB PO SCH (22:40)
[2022-05-19] MEDS: MENTHOL-ZINC OXIDE 360 APPLN/120 GM TUBE EXT SCH (22:42)
[2022-05-20] MEDS: ACETAMINOPHEN 500 MG TAB PO SCH ×3 (05:38→23:04)
--- NOTE | 2022-05-20 08:49 | Orthopedic Progress Note ---
Date of Service May 20, 2022 Assessment & Plan (1) S/P hardware removal: Plan: Continue IV daptomycin 6mg/kg x 6 weeks for Enterococcus andenterococcus faecium VRE. Script for abx in patient's chart ESR/CRP and BUN/Cr order for weekly draws placed in chart for when she is d/c Dressing was changed today. Nursing/SNF may reinforce as needed OOB as tolerated to bedside chair with assistance, able to weightbear on the RLE Discharge back to [facility] today She will be seen one week post d/c in the office and followed by our office/infectious disease. Admission and Anticipated Discharge Date Admission Date: May 16, 2022 Subjective Patient reports pain well controlled, no fevers/chills. Has been tolerating an oral diet. Physical Exam Physical Exam: Resting comfortably in bed in NAD RLE: dressing changed today. Incisions c/d/i. Mild bruising laterally. Distally NVI. Results & Data ([facility]) Vital Signs (Past 12 Hours) Vital Signs Temp Pulse Resp BP Pulse Ox O2 Del Method 05/20/22 08:14 37.0 C 68 16 126/71 96 Room Air 05/19/22 21:00 Room Air 05/19/22 22:44 36.8 C 70 20 166/83 H 97 Room Air
[2022-05-20] MEDS: INSULIN ASPART PER UNIT SC SCH ×4 (10:38→20:17)
[2022-05-20] MEDS: DAPTOmycin 450 MG in SYRINGE 0 ML IV SCH (10:38)
[2022-05-20] MEDS: DOCUSATE SODIUM 100 MG CAP PO SCH ×2 (10:39→20:17)
[2022-05-20] MEDS: PANTOprazole 40 MG TAB PO SCH ×2 (10:39→20:25)
[2022-05-20] MEDS: ASPIRIN 81 MG ECTAB PO SCH ×2 (10:39→20:25)
[2022-05-20] MEDS: MULTIVITAMIN TAB PO SCH (10:40)
[2022-05-20] MEDS: POTASSIUM CHLORIDE CRTAB 20 MEQ TABCR PO SCH (10:40)
[2022-05-20] MEDS: FERROUS GLUCONATE 324 MG TAB PO SCH ×2 (10:40→18:00)
[2022-05-20] MEDS: carvediloL 3.125 MG TAB PO SCH ×2 (10:40→20:26)
[2022-05-20] MEDS: CHOLECALCIFEROL 1,000 UNITS 25 MCG TAB PO SCH (10:41)
[2022-05-20] MEDS: CYANOCOBALAMIN (B-12) 500 MCG TABLET PO SCH (10:41)
[2022-05-20] MEDS: predniSONE 20 MG TAB PO SCH (10:41)
[2022-05-20] MEDS: EUCERIN CR 120 GM JAR TOP SCH ×2 (10:42→20:18)
[2022-05-20] MEDS: LANTUS PER UNIT CHARGE SQ SCH (10:42)
[2022-05-20] MEDS: ASCORBIC ACID 500 MG TAB PO SCH ×2 (10:42→18:00)
[2022-05-20] MEDS: THIAMINE HCL 100 MG TAB PO SCH (10:42)
[2022-05-20] MEDS: traMADol HCL 50 MG TABLET PO PRN ×2 (10:52→20:16)
--- NOTE | 2022-05-20 13:20 | Hospitalist Progress Note ---
Date of Service May 20, 2022 Assessment & Plan (1) S/P hardware removal: Plan: POD #4 s/p I & D, removal of right knee hardware - Dr Garcia intra-op cultures have grown VRE and coag neg staph PICC line placement for long course of IV daptomycin x 6 weeks blood cultures remain negative will need weekly CBC, BMP, CPK, ESR, CRP while on IV daptomycin defer management to primary orthopedic team (2) Cognitive impairment: Plan: baseline confusion from dementia cont supportive care no Rx needed (3) Dysphagia: Plan: no issues at this time eating w/o difficulty (4) Paroxysmal atrial fibrillation: Plan: remains on coreg 3.125mg BID is not on chronic anticoagulation at baseline (5) Hypertension: Plan: continue coreg controlled (6) Polymyalgia rheumatica: Plan: takes chronic prednisone 20mg/day s/p stress dosing cde-operatively now back to usual dose of 20mg/day cont PPI bid for GI prophy (7) Type 2 diabetes mellitus: Plan: cont lantus 10 units daily cont novolog SSI I updated the d/c med list including a novolog sliding scale (8) Wounds, multiple: Plan: optifoam dressings, etc buttock dermatitis - wound care saw this admission, recs noted (9) DVT prophylaxis: Plan: asa 81mg BID per orthopedics (10) Hx pulmonary embolism: Plan: noted asa 81mg BID for prophylaxis (11) Hypokalemia: Plan: improved/stable cont usual daily dose of 20meq/day of k-dur (12) Hypomagnesemia: Plan: replaced resolved likely would benefit from once daily mag oxide 400mg (added to d/c med list) Plan from medical standpoint ok to d/c to SNF Admission and Anticipated Discharge Date Admission Date: May 16, 2022 Subjective patient eating her lunch during the visit pleasantly confused (baseline) states "her bottom" hurts also c/o right knee pain denies cp denies dyspnea denies abd pain Review of Systems Review of Systems: gen - "I feel good" cv - no orthopnea GI - no vomiting - incontinent Physical Exam Physical Exam: gen - pleasantly confused, NAD, very awake & talkative today, eating her lunch mouth - MMM neck - no JVD heart - RRR, s1 s2, no murmur lungs - CTA b/l abd - soft NT ND BS+ ext - dressings intact RLE; pulses both feet 2+; SCDs in place psych - oriented to person only Results & Data Results & Data ([facility]) Vital Signs (Past 12 Hours) Vital Signs Temp Pulse Resp BP Pulse Ox O2 Del Method 05/20/22 08:14 37.0 C 68 16 126/71 96 Room Air Laboratory Results Laboratory Results - last 24 hr 05/19/22 05/19/22 05/20/22 17:18 20:11 08:01 POC Glucose 205 H 167 H 98 05/20/22 11:45 POC Glucose 247 H PG Care Time/CCT Total # of Minutes Spent Total Time Spent with Patient: Total time spent is greater than 50% in coordination of care (as documented) at patient's floor/unit and/or counseling patient: Coding Level of Care Code 84111 Subseq Hosp Care Lvl 2 Diagnoses S/P hardware removal Z98.890 Cognitive impairment R41.89 Dysphagia R13.10 Paroxysmal atrial fibrillation I48.0 Hypertension I10 Hypertension type: unspecified Polymyalgia rheumatica M35.3 Type 2 diabetes mellitus E11.9 Wounds, multiple T07.XXXA DVT prophylaxis Z29.9 Hx pulmonary embolism Z86.711 Hypokalemia E87.6 Hypomagnesemia E83.42 (1) Hypertension Hypertension type: unspecified Qualified Code(s): I10 - Essential (primary) hypertension
[2022-05-20] MEDS: SENNA 8.6 MG TAB PO SCH (20:18)
[2022-05-20] MEDS: MENTHOL-ZINC OXIDE 360 APPLN/120 GM TUBE EXT SCH (20:26)
[2022-05-20] MEDS: DONEPEZIL HCL 10 MG TAB PO SCH (20:26)
[2022-05-21] MEDS: ACETAMINOPHEN 500 MG TAB PO SCH (05:08)
[2022-05-21] MEDS: LANTUS PER UNIT CHARGE SQ SCH (09:52)
[2022-05-21] MEDS: DAPTOmycin 450 MG in SYRINGE 0 ML IV SCH (09:52)
[2022-05-21] MEDS: DOCUSATE SODIUM 100 MG CAP PO SCH (09:53)
[2022-05-21] MEDS: ASPIRIN 81 MG ECTAB PO SCH (09:53)
[2022-05-21] MEDS: PANTOprazole 40 MG TAB PO SCH (09:54)
[2022-05-21] MEDS: carvediloL 3.125 MG TAB PO SCH (09:54)
[2022-05-21] MEDS: MULTIVITAMIN TAB PO SCH (09:54)
[2022-05-21] MEDS: ASCORBIC ACID 500 MG TAB PO SCH (09:54)
[2022-05-21] MEDS: CYANOCOBALAMIN (B-12) 500 MCG TABLET PO SCH (09:55)
[2022-05-21] MEDS: predniSONE 20 MG TAB PO SCH (09:55)
[2022-05-21] MEDS: CHOLECALCIFEROL 1,000 UNITS 25 MCG TAB PO SCH (09:55)
[2022-05-21] MEDS: FERROUS GLUCONATE 324 MG TAB PO SCH (09:55)
[2022-05-21] MEDS: EUCERIN CR 120 GM JAR TOP SCH (09:56)
[2022-05-21] MEDS: THIAMINE HCL 100 MG TAB PO SCH (09:56)
[2022-05-21] MEDS: POTASSIUM CHLORIDE CRTAB 20 MEQ TABCR PO SCH (09:56)
[2022-05-21] MEDS: INSULIN ASPART PER UNIT SC SCH (09:59)
--- NOTE | 2022-05-21 10:16 | Communication Note ---
Date of Service: May 21, 2022 I saw patient at the bedside yesterday. I made adjustments to some of her discharge medications yesterday as well. BSGs remain acceptable. Vitals remain acceptable. Intra-op cultures with VRE / [employer] -- no additional pathogens have grown out. Blood cx's negative. From medical standpoint is stable for discharge to SNF with PICC line and prolonged course of IV daptomycin. Will sign off. Please call or reconsult as needed. Thank you for allowing our team to be involved with her care. Abdiaziz Raya MD
--- NOTE | 2022-05-21 12:03 | Orthopedic Progress Note ---
Date of Service May 21, 2022 Assessment & Plan (1) S/P hardware removal: Plan: Continue IV daptomycin 6mg/kg x 6 weeks for Enterococcus andenterococcus faecium VRE. Script for abx in patient's chart ESR/CRP, CPK, CMP and CBC order for weekly draws placed in chart for when she is d/c Dressing in tact. Nursing/SNF may reinforce as needed OOB as tolerated to bedside chair with assistance, able to weightbear on the RLE Discharge back to [facility] today 12:30 She will be seen one week post d/c in the office and followed by our office/infectious disease. Admission and Anticipated Discharge Date Admission Date: May 16, 2022 Subjective Pt seen and examined bedside. Pleasantly confused. She says she is ready to be "done" here. Says her pain is 0/10. Physical Exam Physical Exam: General: Pt laying in hospital bed awake and alert, in NAD, calm and cooperative during exam Lower Extremity: Dressing in tact and not saturated. She has pneumatic boot and foot pumps on. Lower extremity noted to have good color and temperature with no signs of vascular or lymphatic insufficiency. Results & Data ([facility]) Vital Signs (Past 12 Hours) Vital Signs Temp Pulse Pulse Resp BP Pulse Ox O2 Del Method 05/21/22 11:12 36.9 C 80 69 18 129/69 95 05/21/22 07:16 36.9 C 69 18 129/69 95 Room Air
--- NOTE | 2022-05-23 11:49 | Discharge Summary ---
Date of Service May 23, 2022 Admission HPI Per Admitting Provider Pt was seen and examined bedside. Patient has dementia at baseline and is pleasantly confused. POD #5 s/p Right Knee Irrigation and Debridement, Removal of Retained Orthopedic Hardware-Deep(Right) with Dr Garcia. Pt was admitted for IV antibiotics. Dressing was changed POD2 and incisions were well approximated with no signs of infection. 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 Blood cultures negative. ID recommended IV daptomycin x 6 weeks. PICC was placed. Vitals and labs stable. Pt reports they are doing well and pain is controlled. They are tolerating PO intake and voiding adequate amounts. Working well with PT/OT. Pt denies F/C, N/V/D, SOB, CP. Pt deemed medically and orthopedically stable and ready for discharge on POD5 back to [facility]. Principal Diagnosis Right Knee Irrigation and Debridement, Removal of Retained Orthopedic Hardware- Deep(Right) Discharge Exam General: Pt laying in hospital bed awake and alert, in NAD, calm and cooperative during exam Lower Extremity: Dressing in tact and not saturated. She has pneumatic boot and foot pumps on. Lower extremity noted to have good color and temperature with no signs of vascular or lymphatic insufficiency. Discharge Data Allergies Allergy/AdvReac Type Severity Reaction Status Date / Time adhesive Allergy Intermediate SKIN Verified 05/16/22 05:44 BLISTERS tetanus toxoid, adsorbed Allergy Mild SWELLING Verified 05/16/22 05:44 AT SITE codeine AdvReac Intermediate HEART Verified 05/16/22 05:44 PALPITATIONS (RECIEVED MORPHINE IV IN 2004 ADMIT) Consultations 05/16/22 09:37 Consult Infectious Diseases Stat 05/16/22 11:10 Consult Hospitalist Routine Procedures Performed Operation Date: 05/16/22 07:00 Actual Procedures p Right Knee Irrigation and Debridement, Removal of Retained Orthopedic Hardware-Deep(Right) - Delonet Jovanny Garcia MD Ordered Studies 05/02/22 05:00 US - OR guided needle placemen Routine 05/16/22 05:00 US - OR guided needle placemen Routine 05/16/22 07:00 FL knee RT 1 or 2V Routine Hospital Course (1) S/P hardware removal: Continue IV daptomycin 6mg/kg x 6 weeks for Enterococcus and enterococcus faecium VRE. Script for abx in patient's chart ESR/CRP, CPK, CMP and CBC order for weekly draws placed in chart for when she is d/c Dressing in tact. Nursing/SNF may reinforce as needed OOB as tolerated to bedside chair with assistance, able to weightbear on the RLE Discharge back to [facility] today 12:30 She will be seen one week post d/c in the office and followed by our offic e/infectious disease. Plan Hospitalist treatment plan (1) S/P hardware removal: Plan: POD #4 s/p I & D, removal of right knee hardware - Dr Garcia intra-op cultures have grown VRE and coag neg staph PICC line placement for long course of IV daptomycin x 6 weeks blood cultures remain negative will need weekly CBC, BMP, CPK, ESR, CRP while on IV daptomycin defer management to primary orthopedic team (2) Cognitive impairment: Plan: baseline confusion from dementia cont supportive care no Rx needed (3) Dysphagia: Plan: no issues at this time eating w/o difficulty (4) Paroxysmal atrial fibrillation: Plan: remains on coreg 3.125mg BID is not on chronic anticoagulation at baseline (5) Hypertension: Plan: continue coreg controlled (6) Polymyalgia rheumatica: Plan: takes chronic prednisone 20mg/day s/p stress dosing ced-operatively now back to usual dose of 20mg/day cont PPI bid for GI prophy (7) Type 2 diabetes mellitus: Plan: cont lantus 10 units daily cont novolog SSI I updated the d/c med list including a novolog sliding scale (8) Wounds, multiple: Plan: optifoam dressings, etc buttock dermatitis - wound care saw this admission, recs noted (9) DVT prophylaxis: Plan: asa 81mg BID per orthopedics (10) Hx pulmonary embolism: Plan: noted asa 81mg BID for prophylaxis (11) Hypokalemia: Plan: improved/stable cont usual daily dose of 20meq/day of k-dur (12) Hypomagnesemia: Plan: replaced resolved likely would benefit from once daily mag oxide 400mg (added to d/c med list) Total Time Total Time Spent Total Time Spent (In Minutes): 45 minutes Discharge Plan Discharge Items Patient Disposition: Transfer Half-Way Fac Reason For Visit: Unspecified Open Wound, Right Knee Subsequent Discharge Diagnosis: S/p right knee hardware removal and irrigation and debridement Activity: Per Instructions section Weightbearing: Full weightbearing Non-emergency contact: Surgeon Call non-emergency contact if: you have any medication questions, your temperature is above 101.5, your wound has increased redness, your wound has increased drainage and your wound pain has increased Follow-up/Referrals: Jan Royal at [place] [Primary Care Provider] - Kati Macdonald PA-C [Physician Engineering Lecturer] - 05/24/22 9:30 am Diet: Regular Ambulatory Orders: SARS CoV2 RNA(COVID-19)[place] (Routine) Timeframe: [id number] Facility: [facility] - Location: [facility] [place] Ordered By: Delonte Pruitt Attending Provider Instructions: ORTHOPEDIC DISCHARGE INSTRUCTIONS -Weight bearing as tolerated with walker to assist in ambulation -PICC line is in place for IV Daptomycin 6mg/kg x 6 weeks -Weekly labs: ESR, CRP, Creatine Kinase (CPK), BMP, CBC -Frequently ice to help with pain and swelling -Elevate operative leg above your heart with pillows/blankets -PT/OT at [facility] -You may shower on Post op Day 3. Nursing may reinforce dressing as needed. -DVT prophylaxis: Aspirin 81mg twice a day for 6 weeks, SANGEETHA compression stockings for 3 weeks -While taking Aspirin, if you start to get upset stomach, we recommend taking over the counter Pepcid, 20mg twice a day as long as you are taking the Aspirin -Pain control: Tylenol 500-1000mg every 6- 8 hours, icing and elevating -While on narcotic pain medication we recommend you take a stool softener to prevent constipation -Follow up as scheduled in 1 week and again in 2 weeks with [facility] for post op evaluation and Zip-line removal. Please call our office sooner @ [phone] if you have any questions or concerns -Follow up with [facility], Dr Flo Pruitt [address] Traffic Control Technician Provider Instructions: Check BSGs Before meals and at bedtime. Pending Studies at Discharge: Yes Stand-Alone Forms: My [facility] Skilled Items Patient informed of condition?: Yes DNR: No Discharge Level of Care: Skilled Communicable Disease: No Discharge Prognosis: Stable Lines: PICC Urinary Catheter: No Medications and DC Order Prescriptions: New aspirin 81 mg Tablet,Delayed Release (Dr/Ec) 81 mg PO BID 42 Days Qty: 84 0RF magnesium oxide 400 mg magnesium tablet 400 mg PO DAILY Qty: 30 1RF daptomycin 500 mg recon soln 450 mg IV DAILY Qty: 42 0RF Rx Instructions: administer over 30 mins; Lactobacillus acidoph-L.bulgar 100 million cell granules in packet 1 packet PO BID 42 Days Qty: 84 0RF Continued (DME) Overnight Pad For Women Pad See Rx Instructions .ROUTE .MEDSUPPLY Qty: 168 3RF Rx Instructions: USE TWICE DAILY. (DME) Novofine Autocover 30 gauge x 1/3" needle See Rx Instructions .ROUTE .MEDSUPPLY Qty: 100 3RF Rx Instructions: tests 2 times daily E 11.9 nystatin 100,000 unit/gram powder 1 applic TOP BID PRN (Reason: rash) Qty: 60 0RF (DME) OneTouch Ultra Blue Test Strip Strip See Rx Instructions .ROUTE .MEDSUPPLY Qty: 200 3RF Rx Instructions: TEST SUGARS TWICE DAILY (DME) BD AutoShield Duo Pen Needle 30 gauge x 3/16" needle See Rx Instructions .ROUTE .MEDSUPPLY Qty: 200 3RF Rx Instructions: use to inject insulin twice daily donepezil [Aricept] 10 mg tablet 10 mg PO HS Qty: 90 3RF cholecalciferol (vitamin D3) 50 mcg (2,000 unit) capsule 2,000 unit PO QAM Qty: 30 6RF prednisone 20 mg tablet 20 mg PO QAM Qty: 90 3RF (DME) lancets [ReadyLance Safety Lancets] 30 gauge misc See Rx Instructions .ROUTE .MEDSUPPLY Qty: 200 3RF Rx Instructions: USE TO TEST TWICE DAILY. DX: E11.9 acetaminophen 325 mg tablet 650 mg PO TID MDD 3 GRAMS/24 HOURS acetaminophen 325 mg tablet 650 mg PO Q4 MDD 3g PRN (Reason: Fever Or Pain) Rx Instructions: see routine order polyethylene glycol 3350 [Miralax] 17 gram/dose Powder 17 g PO Q24H PRN (Reason: Constipation) ondansetron 4 mg Tablet,Disintegrating 4 mg PO Q6H PRN (Reason: Nausea And Vomiting) pantoprazole [address] For Susp In Packet 40 mg PO BID Rx Instructions: take 30-60 minutes before food carvedilol [Coreg] 3.125 mg tablet 3.125 mg PO BID cyanocobalamin (vitamin B-12) 1,000 mcg capsule 1,000 mcg PO QAM dimethicone Lotion 1 ea TOPICAL BID menthol-zinc oxide [Calmoseptine] 0.44-20.6 % Ointment 1 applic TOPICAL HS potassium chloride 20 mEq tablet,ER particles/crystals 20 meq PO QAM menthol-zinc oxide [Calmoseptine] 0.44-20.6 % Ointment 1 applic TOPICAL BID Rx Instructions: apply to periwound,buttocks,thigh. apply both calmoseptine and antifungal. may also use as needed for rash lidocaine HCl 4 % Cream 1 applic TOPICAL QID Rx Instructions: apply to right bicep insulin glargine [Lantus Solostar U-100 Insulin] 100 unit/mL (3 mL) insulin pen 10 unit SC QAM Qty: 1 0RF Rx Instructions: hold for BSG < 150 Changed insulin aspart U-100 [Novolog PenFill U-100 Insulin] 100 unit/mL Cartridge See Rx Instructions .ROUTE .COMPLEX Qty: 15 0RF Rx Instructions: sliding scale insulin with meals only: for blood sugar 201-250 give 3 units for blood sugar 251-300 give 5 units for blood sugar 301-350 give 7 units for blood sugar 351-400 give 9 units for blood sugar 401-> give 11 units Discontinued diclofenac sodium 1 % Gel 4 g TOPICAL DAILY PRN (Reason: PAIN R KNEE) Rx Instructions: Apply 4 g to right knee every 24 hours as needed for knee pain Paxlovid (EUA) 300 mg (150 mg x 2)-100 mg tablets,dose pack See Rx Instructions .ROUTE .COMPLEX Qty: 30 0RF Rx Instructions: take TWO 150 mg tablets of nirmatrelvir with ONE 100 mg tablet of ritonavir twice daily for 5 days Discharge Orders: Discharge Order (Routine); Ordered 05/18/22 Ordered By: Kati Macdonald Admission Data Admit Date/Time: 05/16/22 09:37 Attending Provider: Delonte Garcia Admit Provider: Delonte Garcia Primary Care Provider: Jan Royal [place] Other Providers: Pranav Bates ; Brooke Anderson ; Hilton Freeman I. ; William Levin II ; Miranda Ramesh ; Jude Stewart ; Ahmet Keating ; Devi Rossi ; Aniket Bueno ; Abdiaziz Raya Other Interventions: Discharge Summary Assessment (RN) Last Done: 05/21/22 11:12
== END 2022-05-21 13:05 ==
LOC: ASU 05:18 → INTOOBSV 09:37 → 3W 09:37

== ENCOUNTER 2022-09-09 18:23 | Inpatient (IN) ==
[2022-09-09 18:47] LABS: Hemoglobin 8.6 g/dl (12.0-16.0); Immature Granulocytes # (auto) 0.01 K/uL (0.01-0.20); Immature Granulocytes % (auto) 0.2 %; Lymphocytes # (auto) 1.22 K/uL (1.2-3.4); Lymphocytes % (auto) 22.3 %; Mean Corpuscular Hemoglobin 30.4 pg (25.0-34.0); Mean Corpuscular Hgb Conc 31.9 g/dL (32.0-36.0); Mean Corpuscular Volume 95.4 fL (80.0-100.0); Monocytes # (auto) 0.08 K/uL (0.11-0.59); Monocytes % (auto) 1.5 %; Neutrophils # (auto) 4.15 K/uL (1.40-6.50); Platelet Count 193 K/uL (130-400); RDW Coefficient of Variation 13.7 % (11.5-14.5); Red Blood Count 2.83 M/uL (4.20-5.40); White Blood Count 5.46 K/ul (4.8-10.8)
[2022-09-09 18:51] LABS: Appearance Urine Clear (Clear); Bacteria Urine Automated 1+ (Negative); Bilirubin Urine Negative (Negative); Blood Urine Negative (Negative); Color Urine Yellow; Glucose Urine UA Negative (Negative); Ketones Urine Trace (Negative); Leukocyte Esterase Urine 2+ (Negative); Nitrite Urine Positive (Negative); Protein Urine Negative (Negative); Urobilinogen Urine Negative (Negative); WBC Urine Automated >30 /hpf (0-5)
[2022-09-09 18:54] LABS: Albumin Level 3.5 gm/dl (3.4-5.0); BUN Creatinine Ratio 58.3 (10-20); Bilirubin Direct 0.2 mg/dl (0-0.2); Calcium 10.7 mg/dl (8.5-10.1); Creatinine Clr Calc Pharmacy 43.3 ml/min; Est GFR (African American) 72.9 ml/min; Est GFR (Non-African American) 62.9 ml/min; Magnesium 2.3 mg/dl (1.7-2.4); Potassium 5.8 mmol/L (3.5-5.1); Total Protein 5.6 gm/dl (6.0-8.3)
--- NOTE | 2022-09-09 18:55 | XRay Report ---
XR chest 1V portable HISTORY: 87 years-old Female Sepsis acute sepsis COMPARISON: 08/06/2022 TECHNIQUE: AP view of the chest FINDINGS: Cardiac silhouette is enlarged. Atherosclerosis of the aorta. No pneumothorax, pleural effusion, airs pace consolidation or overt pulmonary edema. Degenerative changes of the shoulders and spine. Partial ly imaged hardware of the left shoulder. Cholecystectomy. Stable right hemidiaphragmatic elevation. IMPRESSION: No acute process. ACT 112: Negative or not required by law. The above report was generated using voice recognition software. It may contain grammatical, syntax o r spelling errors. Electronically signed by: Tong Mendes M.D. 09/09/2022 6:53 PM
--- NOTE | 2022-09-09 18:56 | Emergency Department Note ---
History of Present Illness General Chief complaint: Altered Mental Status Stated complaint: AMS, LETHARGIC Time Seen by Provider: 09/09/22 18:28 Source: RN notes reviewed History of Present Illness Provider complaint: Altered mental status Maximum Pain Intensity: 10 87-year-old female from [facility] presents emergency department for altered mental status and weakness. No reported falls. Home Medications Medication Instructions Recorded Confirmed Type incontinence pad, liner, disp #168 ea 08/11/19 04/18/22 Rx (Overnight Pad For Women) pen needle, diabetic, safety 30 #100 ea 06/28/20 04/18/22 Rx gauge x 1/3" (Novofine Autocover) blood sugar diagnostic (OneTouch #200 ea 11/14/20 04/18/22 Rx Ultra Blue Test Strip) pen needle,diabetic dual safty 30 #200 ea 11/14/20 04/18/22 Rx gauge x 3/16" (BD AutoShield Duo Pen Needle) cholecalciferol (vitamin D3) 50 2,000 unit PO QAM #30 caps 05/29/21 09/09/22 Rx mcg (2,000 unit) capsule donepezil 10 mg tablet (Aricept) 10 mg PO HS #90 tabs 05/29/21 09/09/22 Rx prednisone 20 mg tablet 20 mg PO QAM #90 tabs 07/10/21 09/09/22 Rx lancets 30 gauge (ReadyLance #200 ea 07/11/21 04/18/22 Rx Safety Lancets) acetaminophen 325 mg tablet 650 mg PO TID Pain management 09/01/21 09/09/22 History acetaminophen 325 mg tablet 650 mg PO Q4 PRN Fever Or Pain 09/27/21 09/09/22 History carvedilol 3.125 mg tablet (Coreg) 3.125 mg PO BID 12/11/21 09/09/22 History cyanocobalamin (vitamin B-12) 1,000 mcg PO QAM 12/11/21 09/09/22 History 1,000 mcg capsule pantoprazole 40 mg granules 40 mg PO BID Duodenal Ulcers 12/11/21 09/09/22 History delayed-release for susp in packet polyethylene glycol 3350 17 17 g PO Q24H PRN Constipation 12/11/21 09/09/22 History gram/dose oral powder (Miralax) potassium chloride 20 mEq 20 meq PO QAM 10/12/22 03/05/23 History tablet,extended release(part/cryst) magnesium oxide 400 mg PO DAILY #30 tabs 05/20/22 09/09/22 Rx gabapentin 300 mg capsule See Rx Instructions .Route .COMPLEX 09/09/22 09/09/22 History ibuprofen 200 mg tablet 200 mg PO Q12H PRN BREAKTHROUGH 09/09/22 09/09/22 History PAIN, MOD TO SEVERE. insulin aspart U-100 100 unit/mL See Rx Instructions .Route .COMPLEX 09/09/22 09/09/22 History subcutaneous solution (Novolog U-100 Insulin aspart) insulin glargine 100 unit/mL (3 14 unit SC QAM 09/09/22 09/09/22 History mL) subcutaneous pen (Lantus Solostar U-100 Insulin) linezolid 600 mg tablet 600 mg PO BID 09/09/22 09/09/22 History mineral oil-hydrophil petrolat 1 applic topical TID 09/09/22 09/09/22 History topical ointment (Aquaphor topical ointment) nitroglycerin 0.4 mg sublingual 0.4 mg sublingual DIRECTED PRN 09/09/22 09/09/22 History tablet (Nitrostat) Chest Pain thiamine HCl (vitamin B1) 100 mg 200 mg PO DAILY 09/09/22 09/09/22 History tablet (Vitamin B-1) Allergies Allergy/AdvReac Type Severity Reaction Status Date / Time adhesive Allergy Intermediate SKIN Verified 09/09/22 19:12 BLISTERS tetanus toxoid, adsorbed Allergy Intermediate SWELLING Verified 09/09/22 19:12 AT SITE codeine AdvReac Intermediate HEART Verified 09/09/22 19:12 PALPITATIONS (RECIEVED MORPHINE IV IN 2004 ADMIT) Past Med/Surg History Medical History (Updated 09/10/22 @ 00:53 by Isaac Wilson) Alzheimer disease Anemia B12 deficiency Chronic SI joint pain Cognitive impairment Cyst of kidney, acquired Dementia Depression Dysphagia Encephalopathy Hx (entered from remote 2019 care home records) Encephalopathy acute Fungal dermatitis Gait instability Gastroesophageal reflux GI bleed History of respiratory failure Hx (entered from remote 2019 care home records) Hx pulmonary embolism Hx (entered from remote 2019 care home records) Hyperlipidemia Hypertension 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 Converted to NSR after dilt ggt and treatment of sepsis Polymyalgia rheumatica Polymyalgia rheumatica Prosthetic joint implant failure Sepsis 2018 (pyelonephritis with obstructing calculus) Skin cancer PERSONAL HX MALIGNANT MELANOMA Spinal stenosis, lumbar region without neurogenic claudication Stage III pressure ulcer of sacral region Type 2 diabetes mellitus Type 2 diabetes mellitus Ureterolithiasis Vitamin D deficiency Wounds, multiple Stage III pressure ulcer of sacral region, Open R/L lower leg wounds [place] [facility] [place] Surgical History H/O cystoscopy Cyst with L stent (06/15/2019) at [facility]. MAC. Patient given insulin for hyperglycemia and metoprolol and cardizem intraop. Cysto/stent (12/11/21): MAC at [facility]. No issues noted per post-op anesthesia progress note. H/O: hysterectomy History of appendectomy History of knee replacement procedure of left knee History of knee replacement procedure of right knee History of open reduction and internal fixation (ORIF) procedure L HUMEROUS Hx of cholecystectomy Hx of excision of epidermal inclusion cyst Hx of tonsillectomy Presence urogenital implant Family History Sister Diabetes Stroke Brother Diabetes Prostate cancer Father Lung disease Social History Smoking Status: Unknown if ever smoked Cigarettes Per Day: UTO; Hx Alcohol Use: No Hx Substance Use: No Preferred Language: Belizean Communication Ability: Impaired Communication Tools: Facial Expression, Physical Gestures and Lip Movement/Reading Visual Impairment: Limited Hearing Ability: Hard of Hearing Cpo Required: No Beliefs That Will Affect Care: None marital status: / Current Living Situation: [facility] Current Living Situation Comment: Pt lives at [facility] current occupational status: retired How many Children do You have: 1 Feels Safe at Home: Yes caffeine: No Seatbelt Use: always Assistive Devices: Mechanical Lift Physical Exam Vital Signs Vital Signs - 24 hr 09/09/22 18:13 09/09/22 18:49 09/09/22 18:58 Temperature 36.6 C Temperature Source Oral Pulse Rate 89 Pulse Rate [Apical] 87 Pulse Rate from SpO2 Sensor Respiratory Rate 14 19 Respiratory Effort / Characteristics Non-Labored Blood Pressure 119/46 L Blood Pressure [Left Arm] 131/77 Blood Pressure Mean 70 Blood Pressure Mean [Left Arm] 95 Blood Pressure Position Lying Pulse Oximetry 99 97 94 Oxygen Delivery Method Room Air Room Air Room Air Sepsis Recent Fever Within 48 Hours No Sepsis New/Unexplained Change in Mental Status N/A Sepsis Action Taken by Nursing No Action Required 09/09/22 18:58 09/09/22 18:31 09/09/22 19:12 Temperature Temperature Source Pulse Rate 88 90 Pulse Rate [Apical] 85 Pulse Rate from SpO2 Sensor Respiratory Rate 20 Respiratory Effort / Characteristics Blood Pressure Blood Pressure [Left Arm] 128/52 L Blood Pressure Mean Blood Pressure Mean [Left Arm] 77 Blood Pressure Position Pulse Oximetry 94 100 Oxygen Delivery Method Room Air Room Air Sepsis Recent Fever Within 48 Hours Sepsis New/Unexplained Change in Mental Status Sepsis Action Taken by Nursing 09/09/22 19:27 09/09/22 18:29 09/09/22 18:30 Temperature Temperature Source Pulse Rate 89 98 H Pulse Rate [Apical] 91 H Pulse Rate from SpO2 Sensor 88 89 Respiratory Rate 16 18 19 Respiratory Effort / Characteristics Blood Pressure Blood Pressure [Left Arm] 141/79 H Blood Pressure Mean Blood Pressure Mean [Left Arm] 99 Blood Pressure Position Pulse Oximetry 100 98 98 Oxygen Delivery Method Room Air Sepsis Recent Fever Within 48 Hours Sepsis New/Unexplained Change in Mental Status Sepsis Action Taken by Nursing 09/09/22 18:40 09/09/22 18:50 09/09/22 18:50 Temperature Temperature Source Pulse Rate 88 86 Pulse Rate [Apical] Pulse Rate from SpO2 Sensor 88 Respiratory Rate 17 18 Respiratory Effort / Characteristics Blood Pressure 131/77 Blood Pressure [Left Arm] Blood Pressure Mean 95 Blood Pressure Mean [Left Arm] Blood Pressure Position Pulse Oximetry 99 Oxygen Delivery Method Sepsis Recent Fever Within 48 Hours Sepsis New/Unexplained Change in Mental Status Sepsis Action Taken by Nursing 09/09/22 19:00 09/09/22 19:10 09/09/22 19:12 Temperature Temperature Source Pulse Rate 88 90 85 Pulse Rate [Apical] Pulse Rate from SpO2 Sensor 87 89 91 H Respiratory Rate 16 13 15 Respiratory Effort / Characteristics Blood Pressure Blood Pressure [Left Arm] Blood Pressure Mean Blood Pressure Mean [Left Arm] Blood Pressure Position Pulse Oximetry 100 94 94 Oxygen Delivery Method Sepsis Recent Fever Within 48 Hours Sepsis New/Unexplained Change in Mental Status Sepsis Action Taken by Nursing 09/09/22 19:12 09/09/22 19:26 09/09/22 19:26 Temperature Temperature Source Pulse Rate 93 H Pulse Rate [Apical] Pulse Rate from SpO2 Sensor Respiratory Rate 12 Respiratory Effort / Characteristics Blood Pressure 128/52 L 141/79 H Blood Pressure [Left Arm] Blood Pressure Mean 77 99 Blood Pressure Mean [Left Arm] Blood Pressure Position Pulse Oximetry Oxygen Delivery Method Sepsis Recent Fever Within 48 Hours Sepsis New/Unexplained Change in Mental Status Sepsis Action Taken by Nursing 09/09/22 19:30 09/09/22 19:30 09/09/22 19:40 Temperature Temperature Source Pulse Rate 81 90 Pulse Rate [Apical] Pulse Rate from SpO2 Sensor 89 86 Respiratory Rate 20 17 Respiratory Effort / Characteristics Blood Pressure 115/79 Blood Pressure [Left Arm] Blood Pressure Mean 91 Blood Pressure Mean [Left Arm] Blood Pressure Position Pulse Oximetry 99 100 Oxygen Delivery Method Sepsis Recent Fever Within 48 Hours Sepsis New/Unexplained Change in Mental Status Sepsis Action Taken by Nursing 09/09/22 19:50 09/09/22 20:00 09/09/22 20:02 Temperature Temperature Source Pulse Rate 86 89 Pulse Rate [Apical] Pulse Rate from SpO2 Sensor 86 83 Respiratory Rate 18 19 Respiratory Effort / Characteristics Blood Pressure 128/72 Blood Pressure [Left Arm] Blood Pressure Mean 90 Blood Pressure Mean [Left Arm] Blood Pressure Position Pulse Oximetry 100 98 Oxygen Delivery Method Sepsis Recent Fever Within 48 Hours Sepsis New/Unexplained Change in Mental Status Sepsis Action Taken by Nursing 09/09/22 20:02 09/09/22 20:10 09/09/22 20:20 Temperature Temperature Source Pulse Rate 88 85 92 H Pulse Rate [Apical] Pulse Rate from SpO2 Sensor 88 83 91 H Respiratory Rate 13 19 13 Respiratory Effort / Characteristics Blood Pressure Blood Pressure [Left Arm] Blood Pressure Mean Blood Pressure Mean [Left Arm] Blood Pressure Position Pulse Oximetry 100 99 98 Oxygen Delivery Method Sepsis Recent Fever Within 48 Hours Sepsis New/Unexplained Change in Mental Status Sepsis Action Taken by Nursing Physical Exam HENT: Exam performed. - Head: Normocephalic and atraumatic. CV: Normal rate, regular rhythm, normal heart sounds and intact distal pulses. There is no peripheral edema. Palpable radial pulses bue. PULM/CHEST: Rhonchi bilaterally. ABD: The abdomen is soft. There is no tenderness. SKIN: Multiple excoriation hollis of the patient's bilateral upper and lower ext remities. There are small wounds over the bilateral upper and lower extremities that appear to be pressure ulcers stage I. Course Course 1827: The patient was evaluated in room C4. A complete history and physical exam was performed Cardiac monitoring: An order was placed for continuous cardiac monitoring. The monitor shows a rate of 90 with sinus rhythm interpreted by me 1901: Patient's potassium was 5.8. Patient treated with calcium gluconate 1 amp of D50 and 10 units of insulin. 1944: Vital signs stable. Labs show white blood cell count of 5.46 hemoglobin 8.6 platelet count within normal limits. Coagulation studies within normal limits. Patient's lactic acid level came back elevated at 9.3 however procal citonin was negative. Patient's blood pressure is stable. 2 L IV fluid ordered for the patient. Urinalysis is concerning for infection. Cipro IV piggyback ordered for the patient. Given the patient's elevated lactic acid, UTI and urinalysis, patient will be treated for sepsis. Patient will be admitted given the sepsis and hyperkalemia Dr. Bravo's team notified. Administered Medications Sodium Chloride (Nss 1000ml) 1,000 mls @ 80 mls/hr IV .[id number] PHOEBE Stop: 09/10/22 10:29 Last Admin: 09/09/22 23:52 Dose: 80 mls/hr Documented By: MARIIA Daptomycin 225 mg/ Syringe 4.5 mls @ 2.25 mls/min IV Q24H PHOEBE; Protocol Stop: 09/16/22 21:59 Last Admin: 09/09/22 22:36 Dose: 2.25 mls/min Documented By: LAURA Fluconazole (Diflucan) 200 mg in 100 mls @ 100 mls/hr IV Q24H PHOEBE; Protocol Stop: 09/19/22 21:59 Last Infusion: 09/09/22 23:53 Dose: 0 mls/hr Documented By: Admin: 09/09/22 22:36 Dose: 100 mls/hr Documented By: ML Insulin Aspart (Insulin Aspart Per Unit) 0 units SC ACHS PHOEBE Stop: 10/09/22 23:49 Last Admin: 09/10/22 00:34 Dose: Not Given Documented By: MARIIA Co-signed By: EW Discontinued Medications Dextrose (Dextrose 50% 50 Ml Syringe) 50 ml IV NOW STA Stop: 09/09/22 19:00 Last Admin: 09/09/22 19:04 Dose: 50 ml Documented By: ML Calcium Gluconate () 1,000 mg in 60 mls @ 240 mls/hr IV NOW STA Stop: 09/09/22 19:13 Last Infusion: 09/09/22 19:22 Dose: 0 mls/hr Documented By: Admin: 09/09/22 19:07 Dose: 240 mls/hr Documented By: ML Ciprofloxacin (Cipro / D5w) 400 mg in 200 mls @ 100 mls/hr IV NOW STA; Protocol Stop: 09/09/22 21:08 Last Admin: 09/09/22 20:22 Dose: Not Given Documented By: ML Sodium Chloride (Nss 1000ml) 2,000 mls @ 999 mls/hr IV .Q2H1M ONE Stop: 09/09/22 21:33 Last Infusion: 09/09/22 22:08 Dose: 0 mls/hr Documented By: Admin: 09/09/22 20:07 Dose: 999 mls/hr Documented By: ML Insulin Human Regular (Novolin-R Insulin Per Unit Charge) 10 units IV ONE ONE Stop: 09/09/22 19:46 Last Admin: 09/09/22 20:07 Dose: 10 units Documented By: ML Co-signed By: SIMON Critical Care Time Critical Care Time: Yes Total Critical Care Time: 52 I have personally spent greater than 52 minutes of critical care time in the direct management of this patient. This includes bedside care, interpretation of diagnostic studies, and testing, discussion with consultants, patient, and family members, and other required patient management activities. This 52 mi nutes is in excess of all separately billable procedures. Medical Decision Making Laboratory Data Attestation: I reviewed the patient's lab results. 09/09/22 18:25 09/09/22 18:25 Lab Results 09/09/22 09/09/22 09/09/22 Range/Units 18:25 18:25 18:25 WBC 5.46 (4.8-10.8) K/ul RBC 2.83 L (4.20-5.40) M/uL Hgb 8.6 L (12.0-16.0) g/dl Hct 27.0 L (37.0-47.0) % MCV 95.4 (80.0-100.0) fL MCH 30.4 (25.0-34.0) pg MCHC 31.9 L (32.0-36.0) g/dL RDW Std Deviation 48.0 H (36.4-46.3) fL RDW Coeff of Junie 13.7 (11.5-14.5) % Plt Count 193 (130-400) K/uL MPV 10.0 (9.4-12.4) fL Immature Gran % (Auto) 0.2 % Neut % (Auto) 76.0 % Lymph % (Auto) 22.3 % Knott % (Auto) 1.5 % Eos % (Auto) 0.0 % Baso % (Auto) 0.0 % Neut # (Auto) 4.15 (1.40-6.50) K/uL Lymph # (Auto) 1.22 (1.2-3.4) K/uL Knott # (Auto) 0.08 L (0.11-0.59) K/uL Eos # (Auto) 0.00 (0-0.50) K/uL Baso # (Auto) 0.00 (0-0.2) K/uL Immature Gran # (Auto) 0.01 (0.01-0.20) K/uL PT 11.5 (9.0-12.0) Seconds INR 1.1 (0.9-1.1) APTT 22.5 (21.0-31.0) Seconds PTT Ratio 0.8 Sodium 142 (136-145) mmol/L Potassium 5.8 H (3.5-5.1) mmol/L Chloride 106 (98-107) mmol/L Carbon Dioxide 26 (21-32) mmol/L Anion Gap 10 (3-11) BUN 49 H (6-23) mg/dl Creatinine 0.84 (0.6-1.2) mg/dl Est Cr Clr Drug Dosing 43.3 ml/min Est GFR ( Amer) 72.9 ml/min Est GFR (Non-Af Amer) 62.9 ml/min BUN/Creatinine Ratio 58.3 H (10-20) Glucose 196 H (70-99(Fasting)) mg/dl Lactate (0.4-2.0) mmol/L Calcium 10.7 H (8.5-10.1) mg/dl Magnesium 2.3 (1.7-2.4) mg/dl Total Bilirubin 1.0 (0.2-1.0) mg/dl Direct Bilirubin 0.2 (0-0.2) mg/dl AST 13 (13-39) U/L ALT 22 (7-52) U/L Alkaline Phosphatase 78 (34-104) U/L Troponin I High Sens 6.3 (0-14) pg/ml Total Protein 5.6 L (6.0-8.3) gm/dl Albumin 3.5 (3.4-5.0) gm/dl Procalcitonin (0-0.5) ng/ml Urine Color Urine Appearance (Clear) Urine pH (4.5-7.5) Ur Specific [place] (1.000-1.030) Urine Protein (Negative) Urine Glucose (UA) (Negative) Urine Ketones (Negative) Urine Blood (Negative) Urine Nitrite (Negative) Urine Bilirubin (Negative) Urine Urobilinogen (Negative) Ur Leukocyte Esterase (Negative) Urine WBC (Auto) (0-5) /hpf Urine RBC (Auto) (0-4) /hpf U Hyaline Cast (Auto) (0-5) /lpf U Epithel Cells (Auto) (0-5) /lpf Urine Bacteria (Auto) (Negative) Urine Yeast (None Prsent) SARS-CoV-2 (PCR) (Negative) Influenza Type A (PCR) (Neg) Influenza Type B (PCR) (Neg) RSV (RT-PCR) (Neg) 09/09/22 09/09/22 09/09/22 Range/Units 18:25 18:40 18:43 WBC (4.8-10.8) K/ul RBC (4.20-5.40) M/uL Hgb (12.0-16.0) g/dl Hct (37.0-47.0) % MCV (80.0-100.0) fL MCH (25.0-34.0) pg MCHC (32.0-36.0) g/dL RDW Std Deviation (36.4-46.3) fL RDW Coeff of Junie (11.5-14.5) % Plt Count (130-400) K/uL MPV (9.4-12.4) fL Immature Gran % (Auto) % Neut % (Auto) % Lymph % (Auto) % Knott % (Auto) % Eos % (Auto) % Baso % (Auto) % Neut # (Auto) (1.40-6.50) K/uL Lymph # (Auto) (1.2-3.4) K/uL Knott # (Auto) (0.11-0.59) K/uL Eos # (Auto) (0-0.50) K/uL Baso # (Auto) (0-0.2) K/uL Immature Gran # (Auto) (0.01-0.20) K/uL PT (9.0-12.0) Seconds INR (0.9-1.1) APTT (21.0-31.0) Seconds PTT Ratio Sodium (136-145) mmol/L Potassium (3.5-5.1) mmol/L Chloride (98-107) mmol/L Carbon Dioxide (21-32) mmol/L Anion Gap (3-11) BUN (6-23) mg/dl Creatinine (0.6-1.2) mg/dl Est Cr Clr Drug Dosing ml/min Est GFR ( Amer) ml/min Est GFR (Non-Af Amer) ml/min BUN/Creatinine Ratio (10-20) Glucose (70-99(Fasting)) mg/dl Lactate (0.4-2.0) mmol/L Calcium (8.5-10.1) mg/dl Magnesium (1.7-2.4) mg/dl Total Bilirubin (0.2-1.0) mg/dl Direct Bilirubin (0-0.2) mg/dl AST (13-39) U/L ALT (7-52) U/L Alkaline Phosphatase (34-104) U/L Troponin I High Sens (0-14) pg/ml Total Protein (6.0-8.3) gm/dl Albumin (3.4-5.0) gm/dl Procalcitonin < 0.05 (0-0.5) ng/ml Urine Color Yellow Urine Appearance Clear (Clear) Urine pH 5.0 (4.5-7.5) Ur Specific [place] 1.020 (1.000-1.030) Urine Protein Negative (Negative) Urine Glucose (UA) Negative (Negative) Urine Ketones Trace H (Negative) Urine Blood Negative (Negative) Urine Nitrite Positive A (Negative) Urine Bilirubin Negative (Negative) Urine Urobilinogen Negative (Negative) Ur Leukocyte Esterase 2+ H (Negative) Urine WBC (Auto) >30 H (0-5) /hpf Urine RBC (Auto) 5-10 H (0-4) /hpf U Hyaline Cast (Auto) 1-5 (0-5) /lpf U Epithel Cells (Auto) 10-20 H (0-5) /lpf Urine Bacteria (Auto) 1+ H (Negative) Urine Yeast Budding w/ Hyphae A (None Prsent) SARS-CoV-2 (PCR) NEGATIVE (Negative) Influenza Type A (PCR) Negative (Neg) Influenza Type B (PCR) Negative (Neg) RSV (RT-PCR) Negative (Neg) 09/09/22 Range/Units 19:03 WBC (4.8-10.8) K/ul RBC (4.20-5.40) M/uL Hgb (12.0-16.0) g/dl Hct (37.0-47.0) % MCV (80.0-100.0) fL MCH (25.0-34.0) pg MCHC (32.0-36.0) g/dL RDW Std Deviation (36.4-46.3) fL RDW Coeff of Junie (11.5-14.5) % Plt Count (130-400) K/uL MPV (9.4-12.4) fL Immature Gran % (Auto) % Neut % (Auto) % Lymph % (Auto) % Knott % (Auto) % Eos % (Auto) % Baso % (Auto) % Neut # (Auto) (1.40-6.50) K/uL Lymph # (Auto) (1.2-3.4) K/uL Knott # (Auto) (0.11-0.59) K/uL Eos # (Auto) (0-0.50) K/uL Baso # (Auto) (0-0.2) K/uL Immature Gran # (Auto) (0.01-0.20) K/uL PT (9.0-12.0) Seconds INR (0.9-1.1) APTT (21.0-31.0) Seconds PTT Ratio Sodium (136-145) mmol/L Potassium (3.5-5.1) mmol/L Chloride (98-107) mmol/L Carbon Dioxide (21-32) mmol/L Anion Gap (3-11) BUN (6-23) mg/dl Creatinine (0.6-1.2) mg/dl Est Cr Clr Drug Dosing ml/min Est GFR ( Amer) ml/min Est GFR (Non-Af Amer) ml/min BUN/Creatinine Ratio (10-20) Glucose (70-99(Fasting)) mg/dl Lactate 9.3 H* (0.4-2.0) mmol/L Calcium (8.5-10.1) mg/dl Magnesium (1.7-2.4) mg/dl Total Bilirubin (0.2-1.0) mg/dl Direct Bilirubin (0-0.2) mg/dl AST (13-39) U/L ALT (7-52) U/L Alkaline Phosphatase (34-104) U/L Troponin I High Sens (0-14) pg/ml Total Protein (6.0-8.3) gm/dl Albumin (3.4-5.0) gm/dl Procalcitonin (0-0.5) ng/ml Urine Color Urine Appearance (Clear) Urine pH (4.5-7.5) Ur Specific [place] (1.000-1.030) Urine Protein (Negative) Urine Glucose (UA) (Negative) Urine Ketones (Negative) Urine Blood (Negative) Urine Nitrite (Negative) Urine Bilirubin (Negative) Urine Urobilinogen (Negative) Ur Leukocyte Esterase (Negative) Urine WBC (Auto) (0-5) /hpf Urine RBC (Auto) (0-4) /hpf U Hyaline Cast (Auto) (0-5) /lpf U Epithel Cells (Auto) (0-5) /lpf Urine Bacteria (Auto) (Negative) Urine Yeast (None Prsent) SARS-CoV-2 (PCR) (Negative) Influenza Type A (PCR) (Neg) Influenza Type B (PCR) (Neg) RSV (RT-PCR) (Neg) Imaging Data Attestation: I personally reviewed and interpreted this imaging study as follows: My Impression: Chest x-ray negative. No significant change from the x-ray done on August 06, 2022. Radiologist's Impression: Chest X-Ray 09/09/22 18:36 XR chest 1V portable HISTORY: 87 years-old Female Sepsis acute sepsis COMPARISON: 08/06/2022 TECHNIQUE: AP view of the chest FINDINGS: Cardiac silhouette is enlarged. Atherosclerosis of the aorta. No pneumothorax, pleural effusion, airspace consolidation or overt pulmonary edema. Degenerative changes of the shoulders and spine. Partially imaged hardware of the left shoulder. Cholecystectomy. Stable right hemidiaphragmatic elevation. IMPRESSION: No acute process. ACT 112: Negative or not required by law. The above report was generated using voice recognition software. It may contain grammatical, syntax or spelling errors. Electronically signed by: Tong Mendes M.D. 09/09/2022 6:[address] 09/09/22 18:36 CT head/brain wo con CLINICAL HISTORY: 87 years-old Female with ams. Acutely altered mental status TECHNIQUE: Multiple axial CT images of the head were obtained without contrast. A dose lowering technique was utilized adhering to the principles of ALARA. CT DOSE: 614.27 mGy.cm COMPARISON: 12/11/2021 FINDINGS: No acute intracranial hemorrhage, midline shift, intracranial mass, territorial ischemia or abnormal extra-axial collection. Involutional changes with chronic microvascular ischemic disease. Unchanged ventriculomegaly. The calvarium is intact. Polypoid mucosal thickening of the left sphenoid sinus. Mastoid air cells are clear. Prior bilateral lens repair. IMPRESSION: No acute intracranial abnormality. ACT 112: Negative or not required by law. The above report was generated using voice recognition software. It may contain grammatical, syntax or spelling errors. Electronically signed by: Tong Mendes M.D. 09/09/2022 7:28 PM ECG Data Attestation: I personally reviewed and interpreted this ECG as follows: Indication: + altered mental status Rate (beats per minute): 90 Rhythm: + normal sinus ECG ST segments: + Normal ST segments Additional Comments: [place] 112 QRS 92 QTc 447 MDM Narrative 1828: The patient was evaluated in room C4. A complete history and physical exam was performed Cardiac monitoring: An order was placed for continuous cardiac monitoring. The monitor shows a rate of 90 with sinus rhythm interpreted by me 1902: Patient's potassium was 5.8. Patient treated with calcium gluconate 1 amp of D50 and 10 units of insulin. 194: Vital signs stable. Labs show white blood cell count of 5.46 hemoglobin 8.6 platelet count within normal limits. Coagulation studies within normal limits. Patient's lactic acid level came back elevated at 9.3 however procalcitonin was negative. Patient's blood pressure is stable. 2 L IV fluid ordered for the patient. Urinalysis is concerning for infection. Cipro IV piggyback ordered for the patient. Given the patient's elevated lactic acid, UTI and urinalysis, patient will be treated for sepsis. Patient will be admitted given the sepsis and hyperkalemia Dr. Bravo's team notified. Impression & Plan Sepsis, Hyperkalemia Discharge Plan Visit Data Chief Complaint: Altered Mental Status Stated Complaint: AMS, LETHARGIC ED Provider: Isaac Wilson Discharge Problem: Sepsis, Hyperkalemia Patient Disposition: Admitted As Inpatient Discharge Instructions Interventions: ED Discharge Assessment Last Done: 09/09/22 23:00
[2022-09-09] MEDS ORDERED: CALCIUM GLUCONATE 1,000 MG/60 ML BAG IV STA (18:59)
[2022-09-09] MEDS ORDERED: DEXTROSE 50% 50 ML SYRINGE IV STA (18:59)
[2022-09-09] MEDS ORDERED: INSULIN HUMAN REGULAR PER UNIT 10 UNITS in SYRINGE 9.9 ML IV STA (18:59)
[2022-09-09 19:00] LABS: Troponin I High Sensitivity 6.3 pg/ml (0-14)
[2022-09-09] MEDS ORDERED: CIPROFLOXACIN / D5W 400 MG/200 ML BAG IV STA (19:09)
[2022-09-09 19:13] LABS: INR 1.1 (0.9-1.1); Partial Thromboplastin Ratio 0.8; Partial Thromboplastin Time 22.5 Seconds (21.0-31.0); Prothrombin Time 11.5 Seconds (9.0-12.0)
--- NOTE | 2022-09-09 19:30 | CT Scan Report ---
CT head/brain wo con CLINICAL HISTORY: 87 years-old Female with ams. Acutely altered mental status TECHNIQUE: Multiple axial CT images of the head were obtained without contrast. A dose lowering tech nique was utilized adhering to the principles of ALARA. CT DOSE: 614.27 mGy.cm COMPARISON: 12/11/2021 FINDINGS: No acute intracranial hemorrhage, midline shift, intracranial mass, territorial ischemia or abnormal extra-axial collection. Involutional changes with chronic microvascular ischemic disease. Unchanged v entriculomegaly. The calvarium is intact. Polypoid mucosal thickening of the left sphenoid sinus. Mastoid air cells a re clear. Prior bilateral lens repair. IMPRESSION: No acute intracranial abnormality. ACT 112: Negative or not required by law. The above report was generated using voice recognition software. It may contain grammatical, syntax o r spelling errors. Electronically signed by: Tong Mendes M.D. 09/09/2022 7:28 PM
[2022-09-09] MEDS ORDERED: SODIUM CHLORIDE 0.9% 1000ML 2,000 ML IV ONE (19:33)
[2022-09-09] MEDS ORDERED: NovoLIN-R INSULIN PER UNIT CHARGE IV ONE (19:45)
[2022-09-09 19:47] LABS: Influenza A virus by PCR Negative (Neg); Influenza B virus by PCR Negative (Neg); RSV by PCR Negative (Neg); SARS CoV2 RNA(COVID-19) Ceph NEGATIVE (Negative)
--- NOTE | 2022-09-09 20:34 | History & Physical Report ---
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 IV fluids: NS at 80 mils per hour x1 L Hyperkalemia- 5.8 on admission Received D50 followed by 10 units regular insulin IV Hold potassium supplement dementia Recheck BMP this evening UTI- Bacteria and yeast Place on ceftriaxone [address] on fluconazole 200 mg IV daily IV fluids as above Follow urine culture sensitivity VRE infected right TKA- Status post washout 05/29 Hold linezolid due to potential lactic acidosis Placed on daptomycin Consult infectious disease in the morning Progressive anemia/history of GI bleeding- Hemoglobin 8.6, with range 11-13 Hemoccult stools Hold ibuprofen Continue Protonix 40 mg p.o. twice daily Diabetes mellitus- Change glargine from 14 to 8 units subcu every morning Place on Accu-Cheks with SSI Dementia- Continue donepezil Hypertension- Carvedilol with hold parameters B12 deficiency- Continue supplement 1000 mcg daily Polymyalgia rheumatica- On chronic steroids, prednisone 20 mg daily Hold on stress dosing for now History of Present Illness Chief Complaint: The patient is referred to the emergency department from [facility] due to change in mental status, with increased lethargy. Primary Care Provider: [facility] at [place] The patient is an 87-year-old female with a past medical history including chronic steroid use, VRE infection of previous right TKA, hyperkalemia, pulmonary embolism, multiple skin wounds, diabetes mellitus type 2, PMR, hypertension, PAF, dysphagia, status post hardware removal, COVID-19 infection, vitamin D deficiency, hyperlipidemia, ureterolithiasis, right rotator cuff tendinopathy, acute hypotension due to blood loss, chronic SI joint pain, lumbar spinal stenosis, lumbar facet joint syndrome and cognitive impairment. The patient presents to the emergency department as a referral from [facility] due to increasing lethargy, with no other specific symptoms. The patient has been continued on linezolid 600 mg p.o. twice daily and prednisone 20 mg p.o. daily per infectious disease consult for VRE infected right TKA, having undergone washout on 05/16/2022. Allergies Allergy/AdvReac Type Severity Reaction Status Date / Time adhesive Allergy Intermediate SKIN Verified 09/09/22 19:12 BLISTERS tetanus toxoid, adsorbed Allergy Intermediate SWELLING Verified 09/09/22 19:12 AT SITE codeine AdvReac Intermediate HEART Verified 09/09/22 19:12 PALPITATIONS (RECIEVED MORPHINE IV IN 2004 ADMIT) Home Medications Medication Instructions Recorded Confirmed Type incontinence pad, liner, disp #168 ea 08/11/19 04/18/22 Rx (Overnight Pad For Women) pen needle, diabetic, safety 30 #100 ea 06/28/20 04/18/22 Rx gauge x 1/3" (Novofine Autocover) blood sugar diagnostic (OneTouch #200 ea 11/14/20 04/18/22 Rx Ultra Blue Test Strip) pen needle,diabetic dual safty 30 #200 ea 11/14/20 04/18/22 Rx gauge x 3/16" (BD AutoShield Duo Pen Needle) cholecalciferol (vitamin D3) 50 2,000 unit PO QAM #30 caps 05/29/21 09/09/22 Rx mcg (2,000 unit) capsule donepezil 10 mg tablet (Aricept) 10 mg PO HS #90 tabs 05/29/21 09/09/22 Rx prednisone 20 mg tablet 20 mg PO QAM #90 tabs 07/10/21 09/09/22 Rx lancets 30 gauge (ReadyLance #200 ea 07/11/21 04/18/22 Rx Safety Lancets) acetaminophen 325 mg tablet 650 mg PO TID Pain management 09/01/21 09/09/22 History acetaminophen 325 mg tablet 650 mg PO Q4 PRN Fever Or Pain 09/27/21 09/09/22 History carvedilol 3.125 mg tablet (Coreg) 3.125 mg PO BID 12/11/21 09/09/22 History cyanocobalamin (vitamin B-12) 1,000 mcg PO QAM 12/11/21 09/09/22 History 1,000 mcg capsule pantoprazole 40 mg granules 40 mg PO BID Duodenal Ulcers 12/11/21 09/09/22 History delayed-release for susp in packet polyethylene glycol 3350 17 17 g PO Q24H PRN Constipation 12/11/21 09/09/22 History gram/dose oral powder (Miralax) potassium chloride 20 mEq 20 meq PO QAM 04/18/22 09/09/22 History tablet,extended release(part/cryst) magnesium oxide 400 mg PO DAILY #30 tabs 05/20/22 09/09/22 Rx gabapentin 300 mg capsule See Rx Instructions .Route .COMPLEX 09/09/22 09/09/22 History ibuprofen 200 mg tablet 200 mg PO Q12H PRN BREAKTHROUGH 09/09/22 09/09/22 History PAIN, MOD TO SEVERE. insulin aspart U-100 100 unit/mL See Rx Instructions .Route .COMPLEX 09/09/22 09/09/22 History subcutaneous solution (Novolog U-100 Insulin aspart) insulin glargine 100 unit/mL (3 14 unit SC QAM 09/09/22 09/09/22 History mL) subcutaneous pen (Lantus Solostar U-100 Insulin) linezolid 600 mg tablet 600 mg PO BID 09/09/22 09/09/22 History mineral oil-hydrophil petrolat 1 applic topical TID 09/09/22 09/09/22 History topical ointment (Aquaphor topical ointment) nitroglycerin 0.4 mg sublingual 0.4 mg sublingual DIRECTED PRN 09/09/22 09/09/22 History tablet (Nitrostat) Chest Pain thiamine HCl (vitamin B1) 100 mg 200 mg PO DAILY 09/09/22 09/09/22 History tablet (Vitamin B-1) Past Med/Surg History Medical History (Updated 09/10/22 @ 00:05 by Background Daemon) Alzheimer disease Anemia B12 deficiency Chronic SI joint pain Cognitive impairment Cyst of kidney, acquired Dementia Depression Dysphagia Encephalopathy Hx (entered from remote 2019 assisted records) Encephalopathy acute Fungal dermatitis Gait instability Gastroesophageal reflux GI bleed History of respiratory failure Hx (entered from remote 2019 assisted records) Hx pulmonary embolism Hx (entered from remote 2019 assisted records) Hyperlipidemia Hypertension 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 Converted to NSR after dilt ggt and treatment of sepsis Polymyalgia rheumatica Polymyalgia rheumatica Prosthetic joint implant failure Sepsis 2018 (pyelonephritis with obstructing calculus) Skin cancer PERSONAL HX MALIGNANT MELANOMA Spinal stenosis, lumbar region without neurogenic claudication Stage III pressure ulcer of sacral region Type 2 diabetes mellitus Type 2 diabetes mellitus Ureterolithiasis Vitamin D deficiency Wounds, multiple Stage III pressure ulcer of sacral region, Open R/L lower leg wounds Follows with [facility] Surgical History H/O cystoscopy Cyst with L stent (06/15/2019) at [facility]. MAC. Patient given insulin for hyperglycemia and metoprolol and cardizem intraop. Cysto/stent (12/11/21): MAC at [facility]. No issues noted per post-op anesthesia progress note. H/O: hysterectomy History of appendectomy History of knee replacement procedure of left knee History of knee replacement procedure of right knee History of open reduction and internal fixation (ORIF) procedure L HUMEROUS Hx of cholecystectomy Hx of excision of epidermal inclusion cyst Hx of tonsillectomy Presence urogenital implant Family History Sister Diabetes Stroke Brother Diabetes Prostate cancer Father Lung disease Social History Smoking Status: Unknown if ever smoked Cigarettes Per Day: UTO; Hx Alcohol Use: No Hx Substance Use: No Preferred Language: Pashto Communication Ability: Impaired Communication Tools: Facial Expression, Physical Gestures and Lip Movement/Reading Visual Impairment: Limited Hearing Ability: Hard of Hearing 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 Beliefs That Will Affect Care: None marital status: / Current Living Situation: Group Home Current Living Situation Comment: Pt lives at [facility] current occupational status: retired How many Children do You have: 1 Feels Safe at Home: Yes caffeine: No Seatbelt Use: always Assistive Devices: Mechanical Lift Review of Systems Review of Systems: Review of systems limited due to patient's underlying mental state and increased lethargy Physical Exam Physical Exam: The patient is awake, alert and oriented 3, well developed and well nourished, normocephalic and atraumatic, lying in bed and in no acute distress. HEENT--PERRL, EOMI, mucous membranes and oropharynx dry. Neck--supple. No JVD. No bruits. Thyroid normal, trachea midline, no adenopathy. Heart--normal S1 and S2. No murmurs, rubs or gallops. Lungs--clear bilaterally, no respiratory distress, no accessory muscle use. Abdomen--normal bowel sounds and soft. Nontender. Nondistended, no hernias or masses, no organomegaly. Extremities--no cyanosis or clubbing. No edema. There are good distal pulses b/l. Dermatologic--multiple skin tears in upper and lower extremities Neurologic--cranial nerves II through XII grossly intact. Rheumatologic--normal range of motion. Psychiatric--mildly lethargic, but able to answer some questions Results & Data Results & Data ([facility]) Vital Signs (Past 12 Hours) Vital Signs Temp Pulse Pulse Resp BP BP Pulse Ox 09/09/22 20:10 85 19 99 09/09/22 20:02 88 13 100 09/09/22 20:02 128/72 09/09/22 20:00 89 19 98 09/09/22 19:50 86 18 100 09/09/22 19:40 90 17 100 09/09/22 19:30 81 20 99 09/09/22 19:30 115/79 09/09/22 19:26 93 H 12 09/09/22 19:26 141/79 H 09/09/22 19:12 128/52 L 09/09/22 19:12 85 15 94 09/09/22 19:10 90 13 94 09/09/22 19:00 88 16 100 09/09/22 18:50 86 18 09/09/22 18:50 131/77 09/09/22 18:40 88 17 99 09/09/22 18:30 98 H 19 98 09/09/22 18:29 89 18 98 09/09/22 19:27 91 H 16 141/79 H 100 09/09/22 19:12 85 20 128/52 L 100 09/09/22 18:31 90 09/09/22 18:58 88 94 09/09/22 18:58 94 09/09/22 18:49 87 19 131/77 97 09/09/22 18:13 36.6 C 89 14 119/46 L 99 O2 Del Method 09/09/22 20:10 09/09/22 20:02 09/09/22 20:02 09/09/22 20:00 09/09/22 19:50 09/09/22 19:40 09/09/22 19:30 09/09/22 19:30 09/09/22 19:26 09/09/22 19:26 09/09/22 19:12 09/09/22 19:12 09/09/22 19:10 09/09/22 19:00 09/09/22 18:50 09/09/22 18:50 09/09/22 18:40 09/09/22 18:30 09/09/22 18:29 09/09/22 19:27 Room Air 09/09/22 19:12 Room Air 09/09/22 18:31 09/09/22 18:58 Room Air 09/09/22 18:58 Room Air 09/09/22 18:49 Room Air 09/09/22 18:13 Room Air Laboratory Results Laboratory Results WBC 5.46 K/ul (4.8-10.8) 09/09/22 18:25 RBC 2.83 M/uL (4.20-5.40) L 09/09/22 18:25 Hgb 8.6 g/dl (12.0-16.0) L 09/09/22 18:25 Hct 27.0 % (37.0-47.0) L 09/09/22 18:25 MCV 95.4 fL (80.0-100.0) 09/09/22 18:25 MCH 30.4 pg (25.0-34.0) 09/09/22 18:25 MCHC 31.9 g/dL (32.0-36.0) L 09/09/22 18:25 RDW Std Deviation 48.0 fL (36.4-46.3) H 09/09/22 18:25 RDW Coeff of Junie 13.7 % (11.5-14.5) 09/09/22 18:25 Plt Count 193 K/uL (130-400) 09/09/22 18:25 MPV 10.0 fL (9.4-12.4) 09/09/22 18:25 Immature Gran % (Auto) 0.2 % 09/09/22 18:25 Neut % (Auto) 76.0 % 09/09/22 18:25 Lymph % (Auto) 22.3 % 09/09/22 18:25 [place] % (Auto) 1.5 % 09/09/22 18:25 Eos % (Auto) 0.0 % 09/09/22 18:25 Baso % (Auto) 0.0 % 09/09/22 18:25 Neut # (Auto) 4.15 K/uL (1.40-6.50) 09/09/22 18:25 Lymph # (Auto) 1.22 K/uL (1.2-3.4) 09/09/22 18:25 [place] # (Auto) 0.08 K/uL (0.11-0.59) L 09/09/22 18:25 Eos # (Auto) 0.00 K/uL (0-0.50) 09/09/22 18:25 Baso # (Auto) 0.00 K/uL (0-0.2) 09/09/22 18:25 Immature Gran # (Auto) 0.01 K/uL (0.01-0.20) 09/09/22 18:25 PT 11.5 Seconds (9.0-12.0) 09/09/22 18:25 INR 1.1 (0.9-1.1) 09/09/22 18:25 APTT 22.5 Seconds (21.0-31.0) 09/09/22 18:25 PTT Ratio 0.8 09/09/22 18:25 Sodium 142 mmol/L (136-145) 09/09/22 18:25 Potassium 5.8 mmol/L (3.5-5.1) H 09/09/22 18:25 Chloride 106 mmol/L (98-107) 09/09/22 18:25 Carbon Dioxide 26 mmol/L (21-32) 09/09/22 18:25 Anion Gap 10 (3-11) 09/09/22 18:25 BUN 49 mg/dl (6-23) H 09/09/22 18:25 Creatinine 0.84 mg/dl (0.6-1.2) 09/09/22 18:25 Est Cr Clr Drug Dosing 43.3 ml/min 09/09/22 18:25 Est GFR ( Amer) 72.9 ml/min 09/09/22 18:25 Est GFR (Non-Af Amer) 62.9 ml/min 09/09/22 18:25 BUN/Creatinine Ratio 58.3 (10-20) H 09/09/22 18:25 Glucose 196 mg/dl (70-99(Fasting)) H 09/09/22 18:25 Lactate 9.7 mmol/L (0.4-2.0) H* 09/09/22 20:47 Calcium 10.7 mg/dl (8.5-10.1) H 09/09/22 18:25 Magnesium 2.3 mg/dl (1.7-2.4) 09/09/22 18:25 Total Bilirubin 1.0 mg/dl (0.2-1.0) 09/09/22 18:25 Direct Bilirubin 0.2 mg/dl (0-0.2) 09/09/22 18:25 AST 13 U/L (13-39) 09/09/22 18:25 ALT 22 U/L (7-52) 09/09/22 18:25 Alkaline Phosphatase 78 U/L (34-104) 09/09/22 18:25 Troponin I High Sens 6.3 pg/ml (0-14) 09/09/22 18:25 Total Protein 5.6 gm/dl (6.0-8.3) L 09/09/22 18:25 Albumin 3.5 gm/dl (3.4-5.0) 09/09/22 18:25 Procalcitonin < 0.05 ng/ml (0-0.5) 09/09/22 18:25 Urine Color Yellow 09/09/22 18:40 Urine Appearance Clear (Clear) 09/09/22 18:40 Urine pH 5.0 (4.5-7.5) 09/09/22 18:40 Ur Specific [place] 1.020 (1.000-1.030) 09/09/22 18:40 Urine Protein Negative (Negative) 09/09/22 18:40 Urine Glucose (UA) Negative (Negative) 09/09/22 18:40 Urine Ketones Trace (Negative) H 09/09/22 18:40 Urine Blood Negative (Negative) 09/09/22 18:40 Urine Nitrite Positive (Negative) A 09/09/22 18:40 Urine Bilirubin Negative (Negative) 09/09/22 18:40 Urine Urobilinogen Negative (Negative) 09/09/22 18:40 Ur Leukocyte Esterase 2+ (Negative) H 09/09/22 18:40 Urine WBC (Auto) >30 /hpf (0-5) H 09/09/22 18:40 Urine RBC (Auto) 5-10 /hpf (0-4) H 09/09/22 18:40 U Hyaline Cast (Auto) 1-5 /lpf (0-5) 09/09/22 18:40 U Epithel Cells (Auto) 10-20 /lpf (0-5) H 09/09/22 18:40 Urine Bacteria (Auto) 1+ (Negative) H 09/09/22 18:40 Urine Yeast Budding w/ Hyphae (None Prsent) A 09/09/22 18:40 SARS-CoV-2 (PCR) NEGATIVE (Negative) 09/09/22 18:43 Influenza Type A (PCR) Negative (Neg) 09/09/22 18:43 Influenza Type B (PCR) Negative (Neg) 09/09/22 18:43 RSV (RT-PCR) Negative (Neg) 09/09/22 18:43 Impressions Chest X-Ray 09/09/22 18:36 XR chest 1V portable HISTORY: 87 years-old Female Sepsis acute sepsis COMPARISON: 08/06/2022 TECHNIQUE: AP view of the chest FINDINGS: Cardiac silhouette is enlarged. Atherosclerosis of the aorta. No pneumothorax, pleural effusion, airspace consolidation or overt pulmonary edema. Degenerative changes of the shoulders and spine. Partially imaged hardware of the left shoulder. Cholecystectomy. Stable right hemidiaphragmatic elevation. IMPRESSION: No acute process. ACT 112: Negative or not required by law. The above report was generated using voice recognition software. It may contain grammatical, syntax or spelling errors. Electronically signed by: Tong Mendes M.D. 09/09/2022 6:[address] 09/09/22 18:36 CT head/brain wo con CLINICAL HISTORY: 87 years-old Female with ams. Acutely altered mental status TECHNIQUE: Multiple axial CT images of the head were obtained without contrast. A dose lowering technique was utilized adhering to the principles of ALARA. CT DOSE: 614.27 mGy.cm COMPARISON: 12/11/2021 FINDINGS: No acute intracranial hemorrhage, midline shift, intracranial mass, territorial ischemia or abnormal extra-axial collection. Involutional changes with chronic microvascular ischemic disease. Unchanged ventriculomegaly. The calvarium is intact. Polypoid mucosal thickening of the left sphenoid si nus. Mastoid air cells are clear. Prior bilateral lens repair. IMPRESSION: No acute intracranial abnormality. ACT 112: Negative or not required by law. The above report was generated using voice recognition software. It may contain grammatical, syntax or spelling errors. Electronically signed by: Tong Mendes M.D. 09/09/2022 7:28 PM Code Status & VTE Plan Code Status DNR/DNI VTE Prophylaxis Plan VTE Prophylaxis will be ordered: Yes PG Care Time/CCT Total # of Minutes Spent Total Time Spent with Patient: Total time spent is greater than 50% in coordination of care (as documented) at patient's floor/unit and/or counseling patient: Coding Level of Care Code 23578 INT INP/OBS CARE 375MIN Diagnoses Chronic steroid use Infected prosthetic knee joint T84.59XA; Z96.659 Hyperkalemia E87.5 Hx pulmonary embolism Z86.711 Wounds, multiple T07.XXXA Type 2 diabetes mellitus E11.9 Polymyalgia rheumatica M35.3 Hypertension I10 Hypertension type: unspecified Paroxysmal atrial fibrillation I48.0 S/P hardware removal Z98.890 Status post total right knee replacement Z96.651 Cognitive impairment R41.89 Lumbar stenosis with neurogenic claudication M48.062 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
[2022-09-09 21:57] LABS: BUN Creatinine Ratio 55.1 (10-20); Calcium 10.1 mg/dl (8.5-10.1); Creatinine Clr Calc Pharmacy 46.6 ml/min; Est GFR (African American) 79.8 ml/min; Est GFR (Non-African American) 68.8 ml/min; Potassium 4.5 mmol/L (3.5-5.1)
[2022-09-09] MEDS ORDERED: DAPTOmycin 225 MG in SYRINGE 0 ML IV SCH (22:00)
[2022-09-09] MEDS ORDERED: FLUCONAZOLE 200 MG/100 ML BAG IV SCH (22:00)
[2022-09-09] MEDS ORDERED: SODIUM CHLORIDE 0.9% 1000ML 1,000 ML IV SCH (22:00)
[2022-09-09] MEDS ORDERED: GLUCOSE 10 TAB/TUBE PO PRN (23:50)
[2022-09-09] MEDS ORDERED: GLUCOSE 40% GEL 15 GM TUBE PO PRN (23:50)
[2022-09-09] MEDS ORDERED: ONDANSETRON INJ 2 MG/ML 2 ML VIAL IV PRN (23:50)
[2022-09-09] MEDS ORDERED: ACETAMINOPHEN 325 MG TAB PO PRN (23:50)
[2022-09-09] MEDS ORDERED: DEXTROSE 50% 50 ML SYRINGE IV PRN (23:50)
[2022-09-09] MEDS ORDERED: CARBOHYDRATES FOR HYPOGLYCEMIA PO PRN (23:50)
[2022-09-09] MEDS ORDERED: POLYETHYLENE (MIRALAX) 17 GM PACK PO PRN (23:50)
[2022-09-09] MEDS ORDERED: LINEZOLID 600 MG TAB PO SCH (23:50)
[2022-09-09] MEDS ORDERED: NITROGLYCERIN SL 0.4 MG/TAB TAB SL PRN (23:50)
[2022-09-09] MEDS ORDERED: GLUCAGON FOR INJ 1 MG VIAL SQ PRN (23:50)
[2022-09-10] MEDS: INSULIN ASPART PER UNIT SC SCH ×5 (00:34→22:24)
[2022-09-10] MEDS: cefTRIAXone SODIUM 1,000 MG in DEXTROSE 5% AD-VAN 50 ML IV SCH ×2 (00:42→23:32)
[2022-09-10] MEDS: DONEPEZIL HCL 10 MG TAB PO SCH ×2 (00:47→20:35)
[2022-09-10] MEDS: HEPARIN SOD 5,000 UNIT/0.5 ML VIAL SQ SCH ×3 (00:47→20:34)
[2022-09-10] MEDS: PANTOprazole 40 MG TAB PO SCH ×3 (00:47→20:35)
[2022-09-10] MEDS: carvediloL 3.125 MG TAB PO SCH ×3 (00:47→20:35)
[2022-09-10 06:35] LABS: Hematocrit (blood only) 23.1 % (37.0-47.0); Hemoglobin 7.3 g/dl (12.0-16.0); Mean Corpuscular Hemoglobin 30.3 pg (25.0-34.0); Mean Corpuscular Hgb Conc 31.6 g/dL (32.0-36.0); Mean Corpuscular Volume 95.9 fL (80.0-100.0); Platelet Count 133 K/uL (130-400); RDW Coefficient of Variation 13.6 % (11.5-14.5); RDW Standard Deviation 47.6 fL (36.4-46.3); Red Blood Count 2.41 M/uL (4.20-5.40); White Blood Count 6.65 K/ul (4.8-10.8)
[2022-09-10 06:38] LABS: Basophils # (auto) 0.01 K/uL (0-0.2); Basophils % (auto) 0.2 %; Eosinophils # (auto) 0.06 K/uL (0-0.50); Eosinophils % (auto) 0.9 %; Immature Granulocytes # (auto) 0.01 K/uL (0.01-0.20); Immature Granulocytes % (auto) 0.2 %; Lymphocytes # (auto) 2.63 K/uL (1.2-3.4); Lymphocytes % (auto) 39.5 %; Monocytes # (auto) 0.32 K/uL (0.11-0.59); Monocytes % (auto) 4.8 %; Neutrophils # (auto) 3.62 K/uL (1.40-6.50); Neutrophils % (auto) 54.4 %; RBC Morphology Unremarkable
[2022-09-10] MEDS ORDERED: SODIUM CHLORIDE 0.9% 250 ML IV PRN ×2 (07:56→14:22)
[2022-09-10 07:57] LABS: Albumin Level 3.2 gm/dl (3.4-5.0); Bilirubin,Total 0.6 mg/dl (0.2-1.0); Calcium 9.9 mg/dl (8.5-10.1); Magnesium 2.1 mg/dl (1.7-2.4); Potassium 4.5 mmol/L (3.5-5.1)
[2022-09-10 08:03] LABS: Albumin Globulin Ratio 1.7 (0.9-2); BUN Creatinine Ratio 60.6 (10-20); Creatinine Clr Calc Pharmacy 55.1 ml/min; Est GFR (African American) 92.7 ml/min; Globulin 1.9 gm/dl (2.5-4.0); Total Protein 5.1 gm/dl (6.0-8.3)
[2022-09-10] MEDS: predniSONE 20 MG TAB PO SCH (08:38)
[2022-09-10] MEDS: CYANOCOBALAMIN (B-12) 500 MCG TABLET PO SCH (08:38)
[2022-09-10] MEDS: CHOLECALCIFEROL 1,000 UNITS 25 MCG TAB PO SCH (08:38)
[2022-09-10] MEDS: THIAMINE HCL 100 MG TAB PO SCH (08:39)
[2022-09-10] MEDS ORDERED: FLUCONAZOLE 200 MG/100 ML BAG IV SCH (09:00)
[2022-09-10] MEDS ORDERED: Flu Vaccine-High Dose (Fluzone-HD) PF 65+ 0.7mL SYR IM ONE (09:00)
[2022-09-10] MEDS: LANTUS PER UNIT CHARGE SC SCH (09:00)
[2022-09-10] MEDS ORDERED: PNEUMOCOCCAL Polysaccharide Vaccine 25mcg/0.5mL vial/Syr IM ONE (09:00)
[2022-09-10 11:01] LABS: Estimated Average Glucose 194 mg/dl; Hemoglobin A1C 8.4 % (4.5-5.6)
[2022-09-10] MEDS ORDERED: diphenhydrAMINE Capsule 25 MG CAP PO ONE (14:22)
[2022-09-10] MEDS ORDERED: ACETAMINOPHEN 325 MG TAB PO ONE (14:22)
--- NOTE | 2022-09-10 14:41 | Hospitalist Progress Note ---
Date of Service September 10, 2022 Assessment & Plan (1) Lactic acidosis: Plan: Acute - On admit lactate 9.3, with follow-up 9.7, now down to 5.9 - Suspect primary cause of lactic acidosis is linezolid which has been discontinued - Continue thiamine - Initiated IV fluids: NS at 80 ml/hr x 1 L, will resume - Repeat lactate in AM (2) UTI (urinary tract infection): Plan: Acute - UA grossly positive for infection both bacteria and yeast - Place on ceftriaxone 1 g IV daily - Place on fluconazole 200 mg IV daily - Hydrate with gentle IVF hydration - Transition to oral Fluconazole 100mg to start this evening - Follow urine culture sensitivity, prelim culture growing 2 bacteria both GNB (3) Infected prosthetic knee joint: Plan: VRE infected right TKA s/p washout May 2022 - Treated with 6w of IV Daptomycin and was placed on 3-6 mo of oral abx suppression by ID - Is w/o current active infection - Admitting team placed back on IV Dapto and stopped Zyvox d/t lactic acidosis - No other options for oral antibiotic suppression (4) Anemia: Plan: Acutely worsening anemia w/ hx of GI bleed - Drop from 11 in Jul to 7.3 today - Hemoccult stools (negative) - Continue Protonix 40 mg p.o. twice daily - ?secondary to Zyvox - T&C and transfuse 1 unit of blood, pretreat prior, consent obtained from son (5) Wounds, multiple: Plan: - Frequent repositioning - insurance associate consult, appreciate assistance (6) Type 2 diabetes mellitus: Plan: - Continue Lantus 8u in AM - Continue analog AC and HS - Accuchecks AC and HS (7) Polymyalgia rheumatica: Plan: - Chronic treated with Prednisone (8) Hypertension: Plan: HTN and h/o PAF - Normotensive - Currently on low dose Coreg 3.125mg BID, continued (9) Cognitive impairment: Plan: - Continue Aricept Plan Plan as outlined above. Repeat labs in AM. Son provided update via phone this afternoon. Discussed above with Dr. Real. Admission and Anticipated Discharge Date Admission Date: September 09, 2022 Subjective Patient was seen this morning. She has no complaints but is sleepy. No issues reported by RN. Physical Exam Physical Exam: GENERAL: 87 yo wd/wn elderly WF. Awake. NAD. LUNGS: Clear to auscultation bilaterally. CARDIOVASCULAR: Regular rate and rhythm. Results & Data Results & Data ([place]) Vital Signs (Past 12 Hours) Vital Signs Temp Pulse Resp BP Pulse Ox Pulse Ox O2 Del Method 09/10/22 14:33 36.1 C L 73 16 127/75 100 Room Air 09/10/22 08:00 Room Air 09/10/22 08:00 94 09/10/22 07:19 36.2 C L 78 16 115/62 99 Room Air O2 Del Method 09/10/22 14:33 09/10/22 08:00 09/10/22 08:00 Room Air 09/10/22 07:19 Laboratory Results 09/10/22 05:54 09/10/22 05:54 PG Care Time/CCT Total # of Minutes Spent Total Time Spent with Patient: Total time spent is greater than 50% in coordination of care (as documented) at patient's floor/unit and/or counseling patient: Coding Level of Care Code 23928 SUB INP/OBS CARE 3/50MIN Diagnoses Lactic acidosis E87.20 UTI (urinary tract infection) N39.0 Infected prosthetic knee joint T84.59XA; Z96.659 Anemia D64.9 Wounds, multiple T07.XXXA Type 2 diabetes mellitus E11.9 Polymyalgia rheumatica M35.3 Hypertension I10 Hypertension type: unspecified Cognitive impairment R41.89 (8) Hypertension Hypertension type: unspecified Qualified Code(s): I10 - Essential (primary) hypertension
[2022-09-10] MEDS: SODIUM CHLORIDE 0.9% 1000ML 1,000 ML IV SCH (15:07)
[2022-09-10] MEDS: FLUCONAZOLE 100 MG TAB PO SCH (20:34)
--- NOTE | 2022-09-11 05:14 | Electrocardiogram Report ---
Test Reason : Blood Pressure : / mmHG Vent. Rate : 090 BPM Atrial Rate : 090 BPM P-R Int : 112 ms QRS Dur : 092 ms QT Int : 366 ms P-R-T Axes : 036 -62 069 degrees QTc Int : 447 ms Poor data quality, interpretation may be adversely affected Sinus rhythm with Premature atrial complexes Incomplete right bundle branch block Left anterior fascicular block Abnormal ECG When compared with ECG of 06-AUG-2022 11:57, Premature atrial complexes are now Present Confirmed by Biju Nicole ([id number]) on 09/11/2022 5:14:37 AM Referred By: Jan Royal Confirmed By:Biju Nicole
[2022-09-11] MEDS: SODIUM CHLORIDE 0.9% 1000ML 1,000 ML IV SCH (06:12)
[2022-09-11 06:50] LABS: Basophils # (auto) 0.01 K/uL (0-0.2); Basophils % (auto) 0.2 %; Eosinophils # (auto) 0.07 K/uL (0-0.50); Eosinophils % (auto) 1.1 %; Immature Granulocytes # (auto) 0.03 K/uL (0.01-0.20); Immature Granulocytes % (auto) 0.5 %; Lymphocytes # (auto) 2.91 K/uL (1.2-3.4); Lymphocytes % (auto) 45.8 %; Mean Corpuscular Hemoglobin 30.4 pg (25.0-34.0); Mean Corpuscular Hgb Conc 33.3 g/dL (32.0-36.0); Mean Corpuscular Volume 91.2 fL (80.0-100.0); Mean Platelet Volume 9.6 fL (9.4-12.4); Monocytes # (auto) 0.43 K/uL (0.11-0.59); Monocytes % (auto) 6.8 %; Neutrophils % (auto) 45.6 %; Platelet Count 119 K/uL (130-400); RDW Coefficient of Variation 14.2 % (11.5-14.5); RDW Standard Deviation 47.3 fL (36.4-46.3); Red Blood Count 2.96 M/uL (4.20-5.40); White Blood Count 6.35 K/ul (4.8-10.8)
[2022-09-11 07:15] LABS: Albumin Globulin Ratio 1.6 (0.9-2); BUN Creatinine Ratio 45.6 (10-20); Bilirubin,Total 0.7 mg/dl (0.2-1.0); Calcium 9.5 mg/dl (8.5-10.1); Creatinine Clr Calc Pharmacy 63.8 ml/min; Est GFR (African American) 97.3 ml/min; Est GFR (Non-African American) 83.9 ml/min; Globulin 1.9 gm/dl (2.5-4.0); Magnesium 1.9 mg/dl (1.7-2.4); Potassium 3.8 mmol/L (3.5-5.1); Total Protein 4.9 gm/dl (6.0-8.3)
[2022-09-11] MEDS: CHOLECALCIFEROL 1,000 UNITS 25 MCG TAB PO SCH (08:19)
[2022-09-11] MEDS: CYANOCOBALAMIN (B-12) 500 MCG TABLET PO SCH (08:19)
[2022-09-11] MEDS: THIAMINE HCL 100 MG TAB PO SCH (08:20)
[2022-09-11] MEDS: PANTOprazole 40 MG TAB PO SCH ×2 (08:20→20:27)
[2022-09-11] MEDS: carvediloL 3.125 MG TAB PO SCH ×2 (08:20→20:27)
[2022-09-11] MEDS: HEPARIN SOD 5,000 UNIT/0.5 ML VIAL SQ SCH ×2 (08:20→20:28)
[2022-09-11] MEDS: predniSONE 20 MG TAB PO SCH (08:20)
[2022-09-11] MEDS: INSULIN ASPART PER UNIT SC SCH ×4 (08:26→23:09)
[2022-09-11] MEDS: LANTUS PER UNIT CHARGE SC SCH (08:27)
--- NOTE | 2022-09-11 12:10 | Hospitalist Progress Note ---
Date of Service September 11, 2022 Assessment & Plan (1) Lactic acidosis: Plan: Acute with metabolic encephalopathy (UTI + lactic acidosis) - On admit lactate 9.3 -->9.7 -->5.9 --> 2.1 - Suspect primary cause of lactic acidosis is linezolid which has been discontinued - Continue thiamine - IV fluids: NS at 80 ml/hr - Cap fluids as this issue is nearly resolved - Metabolic encephalopathy has resolved *moderate risk to pt (2) UTI (urinary tract infection): Plan: Acute - UA grossly positive for infection both bacteria and yeast - Place on ceftriaxone 1 g IV daily - Place on fluconazole 200 mg IV daily - Hydrate with gentle IVF hydration - Urine culture with growth of ESBL E. coli, dc Rocephin and start Invanz 1g IV daily, will need 7 doses - Blood cultures with NGTD *moderate risk to pt (3) Anemia: Plan: Acutely worsening anemia w/ hx of GI bleed - Drop from 11 in Jul 2022 to 7.3 on 09/10 - Hemoccult stools (negative) - Continue Protonix 40 mg p.o. 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 - Treated with 6w of IV Daptomycin and was placed on 3-6 mo of oral abx suppression by ID - Is w/o current active infection - Admitting team placed back on IV Dapto and stopped Zyvox d/t lactic acidosis - No other options for oral antibiotic suppression (5) Wounds, multiple: Plan: - Frequent repositioning - rug setter [place] consult, appreciate assistance (6) Type 2 diabetes mellitus: Plan: - Continue Lantus 8u in AM - Continue analog AC and HS - Accuchecks AC and HS - Had an episode of hypoglycemia this afternoon, dropped to 57 - Will continue short acting insulin but dc Lantus (7) Polymyalgia rheumatica: Plan: - Chronic treated with Prednisone (8) Hypertension: Plan: HTN and h/o PAF - Normotensive - Currently on low dose Coreg 3.125mg BID, continued (9) Cognitive impairment: Plan: - Continue Aricept Plan Plan as outlined above. Repeat labs in AM. Son provided update via phone this afternoon. Anticipate can return to SNF in next 24-48 hrs. Discussed above with Dr. Real. Admission and Anticipated Discharge Date Admission Date: September 09, 2022 Subjective Patient seen on rounds. No complaints other than feeling "sleepy." She denies cp or dyspnea. Reported being cold and asked for blanket but remains afebrile. Physical Exam Physical Exam: GENERAL: 87 yo wd/wn elderly WF. Awake, alert. NAD. LUNGS: Clear to auscultation bilaterally. CARDIOVASCULAR: Regular rate and rhythm. Results & Data Results & Data ([facility]) Vital Signs (Past 12 Hours) Vital Signs Temp Pulse Resp BP Pulse Ox O2 Del Method 09/11/22 08:37 36.7 C 79 18 142/73 H 100 Room Air Laboratory Results 09/11/22 06:27 09/11/22 06:27 PG Care Time/CCT Total # of Minutes Spent Total Time Spent with Patient: Total time spent is greater than 50% in coordination of care (as documented) at patient's floor/unit and/or counseling patient: Coding Level of Care Code 35284 SUB INP/OBS CARE 3/50MIN Diagnoses Lactic acidosis E87.20 UTI (urinary tract infection) N39.0 Anemia D64.9 Infected prosthetic knee joint T84.59XA; Z96.659 Wounds, multiple T07.XXXA Type 2 diabetes mellitus E11.9 Polymyalgia rheumatica M35.3 Hypertension I10 Hypertension type: unspecified Cognitive impairment R41.89 (8) Hypertension Hypertension type: unspecified Qualified Code(s): I10 - Essential (primary) hypertension
[2022-09-11] MEDS: ERTAPENEM SODIUM 1,000 MG in SYRINGE 0 ML IV SCH (12:52)
[2022-09-11] MEDS: DONEPEZIL HCL 10 MG TAB PO SCH (20:27)
[2022-09-11] MEDS: FLUCONAZOLE 100 MG TAB PO SCH (20:31)
--- NOTE | 2022-09-12 08:55 | Hospitalist Progress Note ---
Date of Service September 12, 2022 Assessment & Plan (1) Lactic acidosis: Plan: Acute with metabolic encephalopathy (UTI + lactic acidosis) after almost 3 month course of Linezolid by Rosa STODDARD for infected TKA last year which has been stopped and she almost completed 3 months Lactic 9.3 on admission --> 2.1 yesterday and normalized with additional IVF yesterday to 1.8 today No further IVF for now, BUN normalized, Donation Worker stable although poor PO intake consulted cycle touring guide for supplementation Blood cultures NGTD x 48 hours Urine cx -- ESBL Ecoli Ertapenem (start date 09/11 -- needs 7 doses -- will need US guided IV to complete abx for UTI, Cm to follow) Metabolic encephalopathy has resolved however appears cognitive impairement at baseline On thiamine (prior undetectable level last year) - continue 200mg daily *moderate risk to pt Continued inpatient stay, possible [facility] could take back tomorrow -- Montior labs in AM (2) UTI (urinary tract infection): Plan: Acute UA +, bacteria/yeast On rocephin, switched to Ertapenem as above 09/11, needs 7 doses Will dc Fluconazole as no yeast on cx Bcx remain ngtd WBC wnl, afebrile IVF provided, since capped *moderate risk to pt (3) Anemia: Plan: Hgb 11s earlier this year, hgb 8.6 on admission? 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 - Treated with 6w of IV Daptomycin and was placed on 3-6 mo of oral abx suppression by ID - Is w/o current active infection - Admitting team placed back on IV Dapto and stopped Zyvox d/t lactic acidosis - No other options for oral antibiotic suppression abd noted had completed ~3 month at this point needing [facility] f/u (per message w/ [facility] inpatient, patient last note 07/02 patient completed 6 weeks IV dapto and chronic immunosuppressive therapy w/ Linezolid for 3-6 months -- needs f/u, asked them to call) (5) Wounds, multiple: Plan: - Frequent repositioning - nuclear auxiliary operator consult, appreciate assistance (6) Type 2 diabetes mellitus: Plan: A1c 8.4 Hypoglycemia prior days, discontinued lantus 8u daily Loosen SSI coverage Monitor BSGs (7) Polymyalgia rheumatica: Plan: Chronic treated with Prednisone 20mg daily --> was not given stress dose steroids during inpatient stay check ESR in AM (8) Hypertension: Plan: HTN and h/o PAF - Normotensive - Currently on low dose Coreg 3.125mg BID, continued (9) Cognitive impairment: Plan: - Continue Aricept Plan Plan as outlined above. Repeat labs in AM. Son provided update via phone 09/11 Anticipating d/c back to [facility] in next 48 hours, will need US guided IV and will place order for today as possible [facility]. Needing to complete 7 day course Ertapenem Outpt f/u [facility] Admission and Anticipated Discharge Date Admission Date: September 09, 2022 Supervising Physician Co-Signing Physician Notes The patient was not seen by me. Chart reviewed. Case discussed with BOBBY Alves. Agree with assessment and plan Subjective eval this morning, resting in bed. no acute complaints, but not much of an appetitie/poor PO intake. Discussed food options, she states they are "trash" but denies any specific wants that we would be able to provide. Answers yes when asked about shortness of breath at times but 99% on room air and no sputum production. No nausea/vomiting/abdominal pain. CM following, discussed need for continued IV abx for her ESBL at discharge, not planning for discharge today at present. Physical Exam Physical Exam: GENERAL: 87 yo wd elderly WF. thin, not well nourished Awake, alert. Oriented to person, not place/time, no acute distress HEENT: head normocephalic, mouth slightly dry, cracking to lips, trachea midline without deviation LUNGS: no tachypnea/cough, no distress, no audible wheezing, poor effort/diminished in the bases, 99% on RA CARDIOVASCULAR: RRR, occasional PVC, no significant m/r/g, no pitting edema, pulses palpable MSK/Neuro: follows commands as able, LE thin/atrophic appearance Psych: Alert/oriented to person, not place/time, cooperative with care Results & Data Results & Data ([facility]) Laboratory Results 09/12/22 09/12/22 09/12/22 Range/Units 11:51 09:28 09:19 WBC (4.8-10.8) K/ul RBC (4.20-5.40) M/uL Hgb (12.0-16.0) g/dl Hct (37.0-47.0) % MCV (80.0-100.0) fL MCH (25.0-34.0) pg MCHC (32.0-36.0) g/dL RDW Std Deviation (36.4-46.3) fL RDW Coeff of Junie (11.5-14.5) % Plt Count (130-400) K/uL MPV (9.4-12.4) fL Immature Gran % (Auto) % Neut % (Auto) % Lymph % (Auto) % Wilcox % (Auto) % Eos % (Auto) % Baso % (Auto) % Neut # (Auto) (1.40-6.50) K/uL Lymph # (Auto) (1.2-3.4) K/uL Wilcox # (Auto) (0.11-0.59) K/uL Eos # (Auto) (0-0.50) K/uL Baso # (Auto) (0-0.2) K/uL Immature Gran # (Auto) (0.01-0.20) K/uL Sodium 138 (136-145) mmol/L Potassium 3.2 L (3.5-5.1) mmol/L Chloride 105 (98-107) mmol/L Carbon Dioxide 30 (21-32) mmol/L Anion Gap 3 (3-11) BUN 13 (6-23) mg/dl Creatinine 0.40 L (0.6-1.2) mg/dl Est Cr Clr Drug Dosing 90.8 ml/min Est GFR ( Amer) 109.3 ml/min Est GFR (Non-Af Amer) 94.3 ml/min BUN/Creatinine Ratio 32.5 H (10-20) Glucose 74 (70-99(Fasting)) mg/dl POC Glucose 94 (70-99) mg/dl Lactate 1.8 (0.4-2.0) mmol/L Calcium 9.5 (8.5-10.1) mg/dl Magnesium 1.7 (1.7-2.4) mg/dl Total Bilirubin 0.6 (0.2-1.0) mg/dl AST 11 L (13-39) U/L ALT 15 (7-52) U/L Alkaline Phosphatase 72 (34-104) U/L Total Protein 4.7 L (6.0-8.3) gm/dl Albumin 3.0 L (3.4-5.0) gm/dl Globulin 1.7 L (2.5-4.0) gm/dl Albumin/Globulin Ratio 1.8 (0.9-2) Nasal Screen MRSA (PCR) (Negative) 09/12/22 09/12/22 09/11/22 Range/Units 09:19 08:55 21:34 WBC 6.03 (4.8-10.8) K/ul RBC 2.94 L (4.20-5.40) M/uL Hgb 9.1 L (12.0-16.0) g/dl Hct 25.8 L (37.0-47.0) % MCV 87.8 (80.0-100.0) fL MCH 31.0 (25.0-34.0) pg MCHC 35.3 (32.0-36.0) g/dL RDW Std Deviation 45.1 (36.4-46.3) fL RDW Coeff of Junie 14.0 (11.5-14.5) % Plt Count 110 L (130-400) K/uL MPV 10.3 (9.4-12.4) fL Immature Gran % (Auto) 0.2 % Neut % (Auto) 37.3 % Lymph % (Auto) 50.4 % Wilcox % (Auto) 10.1 % Eos % (Auto) 1.8 % Baso % (Auto) 0.2 % Neut # (Auto) 2.25 (1.40-6.50) K/uL Lymph # (Auto) 3.04 (1.2-3.4) K/uL Wilcox # (Auto) 0.61 H (0.11-0.59) K/uL Eos # (Auto) 0.11 (0-0.50) K/uL Baso # (Auto) 0.01 (0-0.2) K/uL Immature Gran # (Auto) 0.01 (0.01-0.20) K/uL Sodium (136-145) mmol/L Potassium (3.5-5.1) mmol/L Chloride (98-107) mmol/L Carbon Dioxide (21-32) mmol/L Anion Gap (3-11) BUN (6-23) mg/dl Creatinine (0.6-1.2) mg/dl Est Cr Clr Drug Dosing ml/min Est GFR ( Amer) ml/min Est GFR (Non-Af Amer) ml/min BUN/Creatinine Ratio (10-20) Glucose (70-99(Fasting)) mg/dl POC Glucose 74 97 (70-99) mg/dl Lactate (0.4-2.0) mmol/L Calcium (8.5-10.1) mg/dl Magnesium (1.7-2.4) mg/dl Total Bilirubin (0.2-1.0) mg/dl AST (13-39) U/L ALT (7-52) U/L Alkaline Phosphatase (34-104) U/L Total Protein (6.0-8.3) gm/dl Albumin (3.4-5.0) gm/dl Globulin (2.5-4.0) gm/dl Albumin/Globulin Ratio (0.9-2) Nasal Screen MRSA (PCR) (Negative) 09/11/22 09/11/22 09/11/22 Range/Units 20:43 17:45 12:30 WBC (4.8-10.8) K/ul RBC (4.20-5.40) M/uL Hgb (12.0-16.0) g/dl Hct (37.0-47.0) % MCV (80.0-100.0) fL MCH (25.0-34.0) pg MCHC (32.0-36.0) g/dL RDW Std Deviation (36.4-46.3) fL RDW Coeff of Junie (11.5-14.5) % Plt Count (130-400) K/uL MPV (9.4-12.4) fL Immature Gran % (Auto) % Neut % (Auto) % Lymph % (Auto) % Wilcox % (Auto) % Eos % (Auto) % Baso % (Auto) % Neut # (Auto) (1.40-6.50) K/uL Lymph # (Auto) (1.2-3.4) K/uL Wilcox # (Auto) (0.11-0.59) K/uL Eos # (Auto) (0-0.50) K/uL Baso # (Auto) (0-0.2) K/uL Immature Gran # (Auto) (0.01-0.20) K/uL Sodium (136-145) mmol/L Potassium (3.5-5.1) mmol/L Chloride (98-107) mmol/L Carbon Dioxide (21-32) mmol/L Anion Gap (3-11) BUN (6-23) mg/dl Creatinine (0.6-1.2) mg/dl Est Cr Clr Drug Dosing ml/min Est GFR ( Amer) ml/min Est GFR (Non-Af Amer) ml/min BUN/Creatinine Ratio (10-20) Glucose (70-99(Fasting)) mg/dl POC Glucose 86 84 (70-99) mg/dl Lactate (0.4-2.0) mmol/L Calcium (8.5-10.1) mg/dl Magnesium (1.7-2.4) mg/dl Total Bilirubin (0.2-1.0) mg/dl AST (13-39) U/L ALT (7-52) U/L Alkaline Phosphatase (34-104) U/L Total Protein (6.0-8.3) gm/dl Albumin (3.4-5.0) gm/dl Globulin (2.5-4.0) gm/dl Albumin/Globulin Ratio (0.9-2) Nasal Screen MRSA (PCR) Negative (Negative) 09/11/22 09/11/22 Range/Units 12:18 12:15 WBC (4.8-10.8) K/ul RBC (4.20-5.40) M/uL Hgb (12.0-16.0) g/dl Hct (37.0-47.0) % MCV (80.0-100.0) fL MCH (25.0-34.0) pg MCHC (32.0-36.0) g/dL RDW Std Deviation (36.4-46.3) fL RDW Coeff of Junie (11.5-14.5) % Plt Count (130-400) K/uL MPV (9.4-12.4) fL Immature Gran % (Auto) % Neut % (Auto) % Lymph % (Auto) % Wilcox % (Auto) % Eos % (Auto) % Baso % (Auto) % Neut # (Auto) (1.40-6.50) K/uL Lymph # (Auto) (1.2-3.4) K/uL Wilcox # (Auto) (0.11-0.59) K/uL Eos # (Auto) (0-0.50) K/uL Baso # (Auto) (0-0.2) K/uL Immature Gran # (Auto) (0.01-0.20) K/uL Sodium (136-145) mmol/L Potassium (3.5-5.1) mmol/L Chloride (98-107) mmol/L Carbon Dioxide (21-32) mmol/L Anion Gap (3-11) BUN (6-23) mg/dl Creatinine (0.6-1.2) mg/dl Est Cr Clr Drug Dosing ml/min Est GFR ( Amer) ml/min Est GFR (Non-Af Amer) ml/min BUN/Creatinine Ratio (10-20) Glucose (70-99(Fasting)) mg/dl POC Glucose 47 L* 46 L* (70-99) mg/dl Lactate (0.4-2.0) mmol/L Calcium (8.5-10.1) mg/dl Magnesium (1.7-2.4) mg/dl Total Bilirubin (0.2-1.0) mg/dl AST (13-39) U/L ALT (7-52) U/L Alkaline Phosphatase (34-104) U/L Total Protein (6.0-8.3) gm/dl Albumin (3.4-5.0) gm/dl Globulin (2.5-4.0) gm/dl Albumin/Globulin Ratio (0.9-2) Nasal Screen MRSA (PCR) (Negative) PG Care Time/CCT Total # of Minutes Spent Total Time Spent with Patient: Total time spent is greater than 50% in coordination of care (as documented) at patient's floor/unit and/or counseling patient: Coding Level of Care Code 33921 SUB INP/OBS CARE 3/50MIN Diagnoses Lactic acidosis E87.20 UTI (urinary tract infection) N39.0 Anemia D64.9 Infected prosthetic knee joint T84.59XA; Z96.659 Wounds, multiple T07.XXXA Type 2 diabetes mellitus E11.9 Polymyalgia rheumatica M35.3 Hypertension I10 Hypertension type: unspecified Cognitive impairment R41.89 (8) Hypertension Hypertension type: unspecified Qualified Code(s): I10 - Essential (primary) hypertension
[2022-09-12] MEDS: INSULIN ASPART PER UNIT SC SCH ×4 (09:17→22:21)
[2022-09-12] MEDS: CYANOCOBALAMIN (B-12) 500 MCG TABLET PO SCH (09:23)
[2022-09-12] MEDS: predniSONE 20 MG TAB PO SCH (09:23)
[2022-09-12] MEDS: THIAMINE HCL 100 MG TAB PO SCH (09:24)
[2022-09-12] MEDS: carvediloL 3.125 MG TAB PO SCH ×2 (09:24→22:17)
[2022-09-12] MEDS: CHOLECALCIFEROL 1,000 UNITS 25 MCG TAB PO SCH (09:24)
[2022-09-12] MEDS: HEPARIN SOD 5,000 UNIT/0.5 ML VIAL SQ SCH ×2 (09:24→22:22)
[2022-09-12] MEDS: PANTOprazole 40 MG TAB PO SCH ×2 (09:24→22:23)
[2022-09-12 09:46] LABS: Hematocrit (blood only) 25.8 % (37.0-47.0); Hemoglobin 9.1 g/dl (12.0-16.0); Mean Corpuscular Hgb Conc 35.3 g/dL (32.0-36.0); Mean Corpuscular Volume 87.8 fL (80.0-100.0); Mean Platelet Volume 10.3 fL (9.4-12.4); Platelet Count 110 K/uL (130-400); RDW Standard Deviation 45.1 fL (36.4-46.3); Red Blood Count 2.94 M/uL (4.20-5.40); White Blood Count 6.03 K/ul (4.8-10.8)
[2022-09-12 10:03] LABS: Albumin Globulin Ratio 1.8 (0.9-2); BUN Creatinine Ratio 32.5 (10-20); Bilirubin,Total 0.6 mg/dl (0.2-1.0); Calcium 9.5 mg/dl (8.5-10.1); Creatinine Clr Calc Pharmacy 90.8 ml/min; Est GFR (African American) 109.3 ml/min; Est GFR (Non-African American) 94.3 ml/min; Globulin 1.7 gm/dl (2.5-4.0); Magnesium 1.7 mg/dl (1.7-2.4); Potassium 3.2 mmol/L (3.5-5.1); Total Protein 4.7 gm/dl (6.0-8.3)
[2022-09-12 10:30] LABS: Basophils # (auto) 0.01 K/uL (0-0.2); Basophils % (auto) 0.2 %; Eosinophils # (auto) 0.11 K/uL (0-0.50); Eosinophils % (auto) 1.8 %; Immature Granulocytes # (auto) 0.01 K/uL (0.01-0.20); Immature Granulocytes % (auto) 0.2 %; Lymphocytes # (auto) 3.04 K/uL (1.2-3.4); Lymphocytes % (auto) 50.4 %; Monocytes # (auto) 0.61 K/uL (0.11-0.59); Monocytes % (auto) 10.1 %; Neutrophils # (auto) 2.25 K/uL (1.40-6.50); Neutrophils % (auto) 37.3 %
[2022-09-12] MEDS ORDERED: POTASSIUM CHLORIDE CRTAB 20 MEQ TABCR PO STA (11:58)
[2022-09-12] MEDS: MAGNESIUM SULFATE / D5W 1 GM/100 ML BAG IV SCH ×2 (12:20→14:56)
[2022-09-12] MEDS: ERTAPENEM SODIUM 1,000 MG in SYRINGE 0 ML IV SCH (13:00)
[2022-09-12] MEDS: DONEPEZIL HCL 10 MG TAB PO SCH (22:22)
[2022-09-13 06:40] LABS: Hematocrit (blood only) 23.8 % (37.0-47.0); Hemoglobin 8.1 g/dl (12.0-16.0); Mean Corpuscular Hemoglobin 29.9 pg (25.0-34.0); Mean Corpuscular Volume 87.8 fL (80.0-100.0); Platelet Count 100 K/uL (130-400); RDW Coefficient of Variation 13.7 % (11.5-14.5); Red Blood Count 2.71 M/uL (4.20-5.40); White Blood Count 5.51 K/ul (4.8-10.8)
[2022-09-13 06:56] LABS: Albumin Globulin Ratio 1.6 (0.9-2); Albumin Level 2.8 gm/dl (3.4-5.0); Bilirubin,Total 0.6 mg/dl (0.2-1.0); Creatinine Clr Calc Pharmacy 90.8 ml/min; Est GFR (African American) 109.3 ml/min; Est GFR (Non-African American) 94.3 ml/min; Globulin 1.7 gm/dl (2.5-4.0); Potassium 3.6 mmol/L (3.5-5.1); Total Protein 4.5 gm/dl (6.0-8.3)
[2022-09-13 07:16] LABS: Vitamin B12 > 1500 pg/ml (180-914)
--- NOTE | 2022-09-13 07:33 | Hospitalist Progress Note ---
Date of Service September 13, 2022 Assessment & Plan (1) Lactic acidosis: Plan: Acute with metabolic encephalopathy (UTI + lactic acidosis) after almost 3 month course of Linezolid by Rosa STODDARD for infected TKA last year which has been stopped and she almost completed 3 months Lactic 9.3 on admission --> 2.1 yesterday and normalized with additional IVF yesterday to 1.8 today No further IVF for now, BUN normalized, Singer And Unloader stable although poor PO intake consulted health unit coordinator for supplementation Blood cultures NGTD x 48 hours Urine cx -- ESBL Ecoli Ertapenem (start date 09/11 -- needs 7 doses -- will need US guided IV to complete abx for UTI, Cm to follow) Metabolic encephalopathy has resolved however appears cognitive impairement at baseline On thiamine (prior undetectable level last year) - continue 200mg daily *moderate risk to pt Continued inpatient stay, possible [facility] could take back tomorrow -- Montior labs in AM (2) UTI (urinary tract infection): Plan: Acute UA +, bacteria/yeast On rocephin, switched to Ertapenem as above 09/11, needs 7 doses Will dc Fluconazole as no yeast on cx Bcx remain ngtd WBC wnl, afebrile IVF provided, since capped *moderate risk to pt (3) Anemia: Plan: Hgb 11s earlier this year, hgb 8.6 on admission? 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 - Treated with 6w of IV Daptomycin and was placed on 3-6 mo of oral abx suppression by ID - Is w/o current active infection - Admitting team placed back on IV Dapto and stopped Zyvox d/t lactic acidosis - No other options for oral antibiotic suppression abd noted had completed ~3 month at this point needing [facility] f[facility] (per message w/ [facility] inpatient, patient last note 07/02 patient completed 6 weeks IV dapto and chronic immunosuppressive therapy w/ Linezolid for 3-6 months -- needs f/u, asked them to call) (5) Wounds, multiple: Plan: - Frequent repositioning - ward supervisor consult, appreciate assistance (6) Type 2 diabetes mellitus: Plan: A1c 8.4 Hypoglycemia prior days, discontinued lantus 8u daily Loosen SSI coverage Monitor BSGs (7) Polymyalgia rheumatica: Plan: Chronic treated with Prednisone 20mg daily --> was not given stress dose steroids during inpatient stay check ESR in AM (8) Hypertension: Plan: HTN and h/o PAF - Normotensive - Currently on low dose Coreg 3.125mg BID, continued (9) Cognitive impairment: Plan: - Continue Aricept Plan Plan as outlined above. Repeat labs in AM. Son provided update via phone 09/11 Anticipating d/c back to [facility] in next 48 hours, will need US guided IV and will place order for today as possible [facility] able to take back tomorrow. Needing to complete 7 day course Ertapenem Outpt f/u [facility] Admission and Anticipated Discharge Date Admission Date: September 09, 2022 Results & Data Results & Data ([facility]) Vital Signs (Past 12 Hours) Vital Signs Temp Pulse Resp BP Pulse Ox O2 Del Method 09/12/22 22:12 36.8 C 68 16 129/75 96 Room Air 09/12/22 20:09 Room Air PG Care Time/CCT Total # of Minutes Spent Total Time Spent with Patient: Total time spent is greater than 50% in coordination of care (as documented) at patient's floor/unit and/or counseling patient: Coding Diagnoses Lactic acidosis E87.20 UTI (urinary tract infection) N39.0 Anemia D64.9 Infected prosthetic knee joint T84.59XA; Z96.659 Wounds, multiple T07.XXXA Type 2 diabetes mellitus E11.9 Polymyalgia rheumatica M35.3 Hypertension I10 Hypertension type: unspecified Cognitive impairment R41.89 (8) Hypertension Hypertension type: unspecified Qualified Code(s): I10 - Essential (primary) hypertension
--- NOTE | 2022-09-13 08:21 | Discharge Summary ---
Date of Service September 13, 2022 Admission HPI Per Admitting Provider The patient is an 87-year-old female with a past medical history including chronic steroid use, VRE infection of previous right TKA, hyperkalemia, pulmonary embolism, multiple skin wounds, diabetes mellitus type 2, PMR, hypertension, PAF, dysphagia, status post hardware removal, COVID-19 infection, vitamin D deficiency, hyperlipidemia, ureterolithiasis, right rotator cuff tendinopathy, acute hypotension due to blood loss, chronic SI joint pain, lumbar spinal stenosis, lumbar facet joint syndrome and cognitive impairment. The patient presents to the emergency department as a referral from [facility] due to increasing lethargy, with no other specific symptoms. The patient has been continued on linezolid 600 mg p.o. twice daily and prednisone 20 mg p.o. daily per infectious disease consult for VRE infected right TKA, having undergone washout on 05/16/2022. Admission Exam Per Admitting Provider The patient is awake, alert and oriented 3, well developed and well nourished, normocephalic and atraumatic, lying in bed and in no acute distress. HEENT--PERRL, EOMI, mucous membranes and oropharynx dry. Neck--supple. No JVD. No bruits. Thyroid normal, trachea midline, no adenopathy. Heart--normal S1 and S2. No murmurs, rubs or gallops. Lungs--clear bilaterally, no respiratory distress, no accessory muscle use. Abdomen--normal bowel sounds and soft. Nontender. Nondistended, no hernias or masses, no organomegaly. Extremities--no cyanosis or clubbing. No edema. There are good distal pulses b/l. Dermatologic--multiple skin tears in upper and lower extremities Neurologic--cranial nerves II through XII grossly intact. Rheumatologic--normal range of motion. Psychiatric--mildly lethargic, but able to answer some questions Principal Diagnosis UTI, Lactic Acidosis Discharge Exam GENERAL: 87 yo wd elderly WF. thin, not well nourished Awake, alert. Oriented to person, not place/time, no acute distress HEENT: head normocephalic, mmm, slightly cracked at borders, improved from yesterday, trachea midline without deviation LUNGS: no tachypnea/cough, no distress, no audible wheezing, poor effort/diminished in the bases, 98% on RA CARDIOVASCULAR: RRR, occasional PVC, no significant m/r/g, no pitting edema, pulses palpable MSK/Neuro: follows commands as able, LE thin/atrophic appearance Psych: Alert/oriented to person, not place/time, cooperative with care Discharge Data Allergies Allergy/AdvReac Type Severity Reaction Status Date / Time adhesive Allergy Intermediate SKIN Verified 09/09/22 19:12 BLISTERS tetanus toxoid, adsorbed Allergy Intermediate SWELLING Verified 09/09/22 19:12 AT SITE codeine AdvReac Intermediate HEART Verified 09/09/22 19:12 PALPITATIONS (RECIEVED MORPHINE IV IN 2004 ADMIT) Consultations 09/09/22 19:39 ED Decision to Admit Stat Ordered Studies Chest X-Ray 09/09/22 18:36 XR chest 1V portable HISTORY: 87 years-old Female Sepsis acute sepsis COMPARISON: 08/06/2022 TECHNIQUE: AP view of the chest FINDINGS: Cardiac silhouette is enlarged. Atherosclerosis of the aorta. No pneumothorax, pleural effusion, airspace consolidation or overt pulmonary edema. Degenerative changes of the shoulders and spine. Partially imaged hardware of the left shoulder. Cholecystectomy. Stable right hemidiaphragmatic elevation. IMPRESSION: No acute process. ACT 112: Negative or not required by law. The above report was generated using voice recognition software. It may contain grammatical, syntax or spelling errors. Electronically signed by: Tong Mendes M.D. 09/09/2022 6:[address] 09/09/22 18:36 CT head/brain wo con CLINICAL HISTORY: 87 years-old Female with ams. Acutely altered mental status TECHNIQUE: Multiple axial CT images of the head were obtained without contrast. A dose lowering technique was utilized adhering to the principles of ALARA. CT DOSE: 614.27 mGy.cm COMPARISON: 12/11/2021 FINDINGS: No acute intracranial hemorrhage, midline shift, intracranial mass, territorial ischemia or abnormal extra-axial collection. Involutional changes with chronic microvascular ischemic disease. Unchanged ventriculomegaly. The calvarium is intact. Polypoid mucosal thickening of the left sphenoid sinus. Mastoid air cells are clear. Prior bilateral lens repair. IMPRESSION: No acute intracranial abnormality. ACT 112: Negative or not required by law. The above report was generated using voice recognition software. It may contain grammatical, syntax or spelling errors. Electronically signed by: Tong Mendes M.D. 09/09/2022 7:28 PM Hospital Course (1) Lactic acidosis: Acute with metabolic encephalopathy (UTI + lactic acidosis) after almost 3 month course of Linezolid by Rosa STODDARD for infected TKA last year which has been stopped and she almost completed 3 months Lactic 9.3 on admission --> 2.1 yesterday and normalized with additional IVF to 1.8 off additional IVF No further IVF for now, BUN normalized, [employer] stable although poor PO intake -- improved prior to discharge consulted pressure dispatcher for supplementation -- continue supplementaion at d/c Blood cultures NGTD x 48 hours Urine cx -- ESBL Ecoli Ertapenem (start date 09/11 -- needs 7 doses -- US guided IV placed to complete course 7 days total at discharge) Metabolic encephalopathy has resolved however appears cognitive impairment at baseline On thiamine (prior undetectable level last year) - continue 200mg daily *moderate risk to pt PT/OT consulted --> back to [facility] for ongoing care (2) UTI (urinary tract infection): Acute UA +, bacteria/yeast On rocephin, switched to Ertapenem as above 09/11 and to complete 7 day course at d/c Fluconazole d/c as no yeast on cx blood culture remained NGTD, WBC wnl (3) Anemia: Hgb 11s earlier this year, hgb 8.6 on admission? Hgb to 7.3 on 09/10 but had been getting IVF -- did get 1u blood (consent obtained from son), ?2nd to zyvox use, since discontinued Hemoccult stools (negative x 2), no abdominal pain reported Avoid NSAIDs -- has ibuprofen on home med list prn No active bleeding appreciated Hgb stable 9.0-->9.1 on IVF but 8.1 on repeat Continued on protonix 40mg PO BID -- hx duodenal ulcers Checked iron/b12/folate prior to discharge (noting she did get 1u PRBC while inpatient) --> Iron 21,trans % sat 16 -- per discussion w/ supervising provider rx for iron BID at d/c and rec'd bowel regimen if issues with constipation --> B12 not deficient and on supp --> Folate LOW 3.91-- started supplementation and continued at discharge Rec repeat labs in 1 weeks to ensure stable Could have been from Zyvox use as on for >3 months and prior to that 6 weeks IV Dapto/Vanco w/ [facility] (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 - Treated with 6w of IV Daptomycin and was placed on 3-6 mo of oral abx suppression by ID - Is w/o current active infection - Admitting team placed back on IV Dapto and stopped Zyvox d/t lactic acidosis but then never continued daptomycin - No other options for oral antibiotic suppression abd noted had completed ~3 month at this point needing outpatient [facility] f/u (5) Wounds, multiple: - Frequent repositioning - recovery specialist consult, appreciate assistance (6) Type 2 diabetes mellitus: A1c 8.4 Had some drops in BSGs, poor PO intake, which improved w/ tx UTI and recs holding long acting and use sliding scale until PO intake back to baseline and monitor BSG AC/HS at [facility] (7) Polymyalgia rheumatica: Chronic treated with Prednisone 20mg daily, no stress steroids on admission ESR <1, likely no flair/issues w/ PMR (8) Hypertension: HTN and h/o PAF BPs acceptable, continued on coreg BID (9) Cognitive impairment: - Continued Aricept B1 last year <6, remains on thiamine B12 w/o deficiency, folate checked and low/replacement ordered Plan discharged to [facility] to complete 7 day course Ertapenem Rec f/u [facility] Total Time Total Time Spent Total Time Spent (In Minutes): 60 Discharge Plan Discharge Items Patient Disposition: Transfer Assisted Fac Reason For Visit: AMS, LETHARGIC Discharge Diagnosis: UTI Goals: You have been hospitalized for an acute medical problem. During your stay at [facility], we have made an effort to correct the problem that brought you to the hospital while keeping you as comfortable as possible. Medications were used to bring your condition under control and your discharge instructions will include directions for any medications you should take after leaving the hospital. Please make sure you see your Primary Care Provider as part of your follow up plan. Activity: Resume your previous activity Non-emergency contact: Primary Care Provider and Specialist Call non-emergency contact if: you have any medication questions, your symptoms worsen, your pain is concerning for you and you have a fever Follow-up/Referrals: Jan Royal at [place] [Primary Care Provider] - Diet: Carb Consistent or DM2 and Heart Healthy Addtl Attending Provider Instructions: You have been hospitalized for altered mental status and found to have a very elevated lactic acid, which is likely from residential linezolid use for prior knee infection. Repeat lactic acid since IV fluid and stopping this medication, along with a unit of blood and this value has normalized. Stools were checked for blood, which were negative, and this could have been a longer standing issue due to antibiotic use. Your iron and folate were low and we started you on replacement for these. Sometimes iron can cause constipation and if this occurs please take a bowel regimen. Given you completed extended course and then ~3 months of Linezolid, and we have stopped due to this side effect and you should have follow up with [facility] Infectious disease in follow up for ongoing management of that issue. You were found to have a UTI which is multi-drug resistant and you have been given IV Ertapenem and will need to complete a 7 day course for urinary tract infection. You have FIVE DAYS LEFT OF TREATMENT. peripheral guided IV has been placed for ongoing therapy. You should follow up with primary care in the next 7-10 days after hospitalization to monitor your progress. Please return to the ER with any worsening confusion, fevers, chest pain, shortness of breath, or for any other symptoms concerning for you. It has been a pleasure being a part of the medical team providing for you while you have been in the hospital. Take care! Pending Studies at Discharge: No Stand-Alone Forms: [facility] Skilled Items Patient informed of condition?: Yes DNR: Yes Discharge Level of Care: Skilled Communicable Disease: No Discharge Prognosis: Stable Lines: None Urinary Catheter: No Medications and DC Order Prescriptions: New ertapenem 1 gram recon soln 1 g IV DAILY 5 Days Qty: 10 0RF ferrous sulfate 325 mg (65 mg iron) Tablet,Delayed Release (Dr/Ec) 325 mg PO BIDM Qty: 60 0RF folic acid 400 mcg Tablet 400 mcg PO QAM Qty: 30 0RF Continued (DME) Overnight Pad For Women Pad See Rx Instructions .ROUTE .MEDSUPPLY Qty: 168 3RF Rx Instructions: USE TWICE DAILY. (DME) Novofine Autocover 30 gauge x 1/3" needle See Rx Instructions .ROUTE .MEDSUPPLY Qty: 100 3RF Rx Instructions: tests 2 times daily E 11.9 (DME) OneTouch Ultra Blue Test Strip Strip See Rx Instructions .ROUTE .MEDSUPPLY Qty: 200 3RF Rx Instructions: TEST SUGARS TWICE DAILY (DME) BD AutoShield Duo Pen Needle 30 gauge x 3/16" needle See Rx Instructions .ROUTE .MEDSUPPLY Qty: 200 3RF Rx Instructions: use to inject insulin twice daily donepezil [Aricept] 10 mg tablet 10 mg PO HS Qty: 90 3RF cholecalciferol (vitamin D3) 50 mcg (2,000 unit) capsule 2,000 unit PO QAM Qty: 30 6RF prednisone 20 mg tablet 20 mg PO QAM Qty: 90 3RF (DME) lancets [ReadyLance Safety Lancets] 30 gauge misc See Rx Instructions .ROUTE .MEDSUPPLY Qty: 200 3RF Rx Instructions: USE TO TEST TWICE DAILY. DX: E11.9 acetaminophen 325 mg tablet 650 mg PO Q4 MDD 3 GRAMS/24 HOURS PRN (Reason: Fever Or Pain) Rx Instructions: see routine order polyethylene glycol 3350 [Miralax] 17 gram/dose Powder 17 g PO Q24H PRN (Reason: Constipation) carvedilol [Coreg] 3.125 mg tablet 3.125 mg PO BID cyanocobalamin (vitamin B-12) 1,000 mcg capsule 1,000 mcg PO QAM magnesium oxide 400 mg magnesium tablet 400 mg PO DAILY Qty: 30 1RF potassium chloride 20 mEq tablet,ER particles/crystals 20 meq PO QAM thiamine HCl (vitamin B1) [Vitamin B-1] 100 mg Tablet 200 mg PO DAILY Aquaphor Ointment 1 applic TOPICAL TID Rx Instructions: APPLY TO BUTTOCKS, SACRUM. insulin aspart U-100 [Novolog U-100 Insulin aspart] 100 unit/mL Solution See Rx Instructions .ROUTE .COMPLEX Rx Instructions: TAKES 5 UNITS QAM, THEN 10 UNITS Q LUNCH & SUPPER. ibuprofen 200 mg Tablet 200 mg PO Q12H PRN (Reason: BREAKTHROUGH PAIN, MOD TO SEVERE.) nitroglycerin [Nitrostat] 0.4 mg Tablet, Sublingual 0.4 mg sublingual DIRECTED PRN (Reason: Chest Pain) Rx Instructions: EVERY 5 MIN. NEEDED, UP TO 3 DOSES. gabapentin 300 mg Capsule See Rx Instructions .ROUTE .COMPLEX Rx Instructions: 300 mg orally; TAKES 600 MG QAM & HS, TAKES 300 MG QAFTERNOON. HOLD FOR LETHARGY. insulin glargine [Lantus Solostar U-100 Insulin] 100 unit/mL (3 mL) insulin pen 14 unit SC QAM Rx Instructions: hold for BSG < 150 pantop[address] For Susp In Packet 40 mg PO BID Qty: 60 0RF Rx Instructions: take 30-60 minutes before food Discontinued acetaminophen 325 mg tablet 650 mg PO TID MDD 3 GRAMS/24 HOURS linezolid 600 mg Tablet 600 mg PO BID Discharge Orders: Discharge Order (Routine); Ordered 09/13/22 Ordered By: Chaparrita Sanders Admission Data Admit Date/Time: 09/09/22 20:30 Attending Provider: Ahmet Truong Admit Provider: Rashel Cordova Primary Care Provider: Jan [facility] Other Providers: Rashel Cordova ; Jan [facility] Other Interventions: Discharge Summary Assessment (RN) Last Done: 09/13/22 09:31 Supervising Physician Co-Signing Physician Notes The patient was seen by me. The chart was reviewed. Case discussed with BOBBY Alves. Agree with assessment and plan. She is medically stable for discharge Coding Level of Care Code 14797 INP/OBS DISCH >30 MIN Diagnoses Lactic acidosis E87.20 UTI (urinary tract infection) N39.0 Anemia D64.9 Infected prosthetic knee joint T84.59XA; Z96.659 Wounds, multiple T07.XXXA Type 2 diabetes mellitus E11.9 Polymyalgia rheumatica M35.3 Hypertension I10 Hypertension type: unspecified Cognitive impairment R41.89
[2022-09-13] MEDS: INSULIN ASPART PER UNIT SC SCH (08:50)
[2022-09-13] MEDS: HEPARIN SOD 5,000 UNIT/0.5 ML VIAL SQ SCH (09:00)
[2022-09-13] MEDS ORDERED: POTASSIUM CHLORIDE CRTAB 20 MEQ TABCR PO SCH (09:00)
[2022-09-13] MEDS ORDERED: MAGNESIUM OXIDE 400 MG TAB PO SCH (09:00)
[2022-09-13] MEDS ORDERED: FOLIC ACID 400 MCG TAB PO SCH (09:00)
[2022-09-13] MEDS: predniSONE 20 MG TAB PO SCH (09:01)
[2022-09-13] MEDS: CHOLECALCIFEROL 1,000 UNITS 25 MCG TAB PO SCH (09:01)
[2022-09-13] MEDS: PANTOprazole 40 MG TAB PO SCH (09:01)
[2022-09-13] MEDS: CYANOCOBALAMIN (B-12) 500 MCG TABLET PO SCH (09:01)
[2022-09-13] MEDS: THIAMINE HCL 100 MG TAB PO SCH (09:01)
[2022-09-13] MEDS: carvediloL 3.125 MG TAB PO SCH (09:02)
[2022-09-13] MEDS ORDERED: FERROUS SULFATE 325 MG TAB PO SCH (17:00)
== END 2022-09-13 10:16 | DRG 689 ==
LOC: ED 18:23 → 3E 20:30 → SUATTDRO 20:30 → 3E 23:00

== ENCOUNTER 2022-10-14 13:22 | Inpatient (IN) ==
[2022-10-14] MEDS ORDERED: SODIUM CHLORIDE 0.9% 1000ML 1,000 ML IV ONE (13:31)
--- NOTE | 2022-10-14 13:31 | Emergency Department Note ---
Impression & Plan Weakness, Acute confusion, DVT (deep venous thrombosis) ED Provider Note NAME: FARZAD OLIVEIRA AGE: 87 SEX: F : 1935 ARRIVES VIA: Ambulance INFORMANT: Patient ED PROVIDER(S): Good Vazquez DO CHIEF COMPLAINT: AMS and weakness HPI: Patient is an 87-year-old female who presents to the ER for altered mental status. They note that today she has been much more lethargic and has been opening her eyes. She has been confused. No reported trauma. They are concerned as she has a foul-smelling and darker urine she may have a UTI. They did not check this at the alf. They reportedly did an ultrasound and found a blood clot in the right lower extremity but have not treated this or attempted to do anything per report from EMS. Patient denies any headache or chest pain. No shortness of breath. She denies any belly pain. Denies any leg pain. History is fairly limited secondary to the mentation. PAST MEDICAL HISTORY:See Below PAST SURGICAL HISTORY:See Below FAMILY HISTORY:See Below SOCIAL HISTORY:See Below HOME MEDICATIONS:See Below ALLERGIES:See Below VITALS:See Below PHYSICAL EXAMINATION: GENERAL: Sitting up in bed, alert, well appearing, well nourished, no distress, non-toxic HEAD: NC/AT EYE EXAM: normal conjunctiva. PERRL and EOM's grossly intact. OROPHARYNX: mucous membranes are moist NECK: supple, no nuchal rigidity, no adenopathy, non-tender LUNGS: Clear to auscultation. Normal chest wall mechanics HEART: no murmurs, S1 normal and S2 normal ABDOMEN: abdomen soft, non-tender, normo-active bowel sounds, no masses, no rebound or guarding. UPPER EXTREMITIES: upper extremities are grossly normal. LOWER EXTREMITIES: No pitting edema. NEURO EXAM: Not oriented to place or year but oriented to person, cranial nerves II through XII are intact, soft subtle speech, no focal weakness of the upper or lower extremities. MEDICAL DECISION MAKING: Patient is an 87-year-old female who presents the ER for above-stated complaint. IV was established blood work was obtained. External records were reviewed. Labs show no significant leukocytosis. Hemoglobin 11. BMP was fairly unremarkable. LFTs bilirubin and troponin was negative. Lipase was normal. UA does suggest a clear UTI. Previous cultures were reviewed and she was placed on ertapenem following receiving Rocephin. Venous Doppler shows extensive DVT in the right lower extremity. Chest x-ray was clean. Patient chart was reviewed and she did have a previous upper GI bleed follow by a scope. With this in mind she was placed on heparin but no bolus was given. Patient was discussed with the hospitalist for further evaluation management and treatment. Triage Nursing notes reviewed. Limited review of prior medical records performed Vital Signs: reviewed and remarkable for no significant abnormalities Differential diagnosis: Differential diagnoses includes but is not limited to toxic, metabolic, infectious, traumatic, cardiac, neurologic, hematologic, psychiatric and inflammatory etiologies. ER treatment provided: See below Diagnostics interpreted by me include EKG and cardiac monitoring as listed below: -Cardiac Monitoring: An order was placed for continuous cardiac monitoring. The monitor shows a rate of 80 with sinus rhythm. -ECG: none -Laboratory studies:Interpreted by me as stated above in MDM and shown below. Imaging studies: Xrays: As interpreted by me: Portable AP upright 1 view of the chest shows no pneumonia CTs show: none Venous Doppler shows extensive DVT in the right lower extremity Consultation(s): As described above in MDM discussed with the hospitalist for further evaluation Procedures:none Critical Care: None Past Med/Surg History Medical History (Updated 10/14/22 @ 16:37 by Good Vazquez DO) Alzheimer disease Anemia B12 deficiency Chronic SI joint pain Cognitive impairment Cyst of kidney, acquired Dementia Depression Dysphagia Encephalopathy Hx (entered from remote 2019 alf records) Encephalopathy acute Fungal dermatitis Gait instability Gastroesophageal reflux GI bleed History of respiratory failure Hx (entered from remote 2019 alf records) Hx pulmonary embolism Hx (entered from remote 2019 alf records) Hyperlipidemia Hypertension 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 Converted to NSR after dilt ggt and treatment of sepsis Polymyalgia rheumatica Polymyalgia rheumatica Prosthetic joint implant failure Sepsis 2018 (pyelonephritis with obstructing calculus) Skin cancer PERSONAL HX MALIGNANT MELANOMA Spinal stenosis, lumbar region without neurogenic claudication Stage III pressure ulcer of sacral region Type 2 diabetes mellitus Type 2 diabetes mellitus Ureterolithiasis Vitamin D deficiency Wounds, multiple Stage III pressure ulcer of sacral region, Open R/L lower leg wounds Follows with [facility] wound clinic Surgical History H/O cystoscopy Cyst with L stent (06/15/2019) at [facility]. MAC. Patient given insulin for hyperglycemia and metoprolol and cardizem intraop. Cysto/stent (12/11/21): MAC at [facility]. No issues noted per post-op anesthesia progress note. H/O: hysterectomy History of appendectomy History of knee replacement procedure of left knee History of knee replacement procedure of right knee History of open reduction and internal fixation (ORIF) procedure L HUMEROUS Hx of cholecystectomy Hx of excision of epidermal inclusion cyst Hx of tonsillectomy Presence urogenital implant Family History Sister Diabetes Stroke Brother Diabetes Prostate cancer Father Lung disease Social History Smoking Status: Former smoker Cigarettes Per Day: UTO; Hx Alcohol Use: No Hx Substance Use: No Preferred Language: Prydeinig Communication Ability: Effective Communication Ability Comment: communication impaired Communication Tools: Facial Expression, Physical Gestures and Lip Movement/Reading Visual Impairment: Limited Hearing Ability: Hard of Hearing Stringed Instrument Tuner Required: No Beliefs That Will Affect Care: None marital status: / Current Living Situation: Halfway Current Living Situation Comment: Pt lives at [facility] current occupational status: retired How many Children do You have: 1 Feels Safe at Home: Yes caffeine: No Seatbelt Use: always Assistive Devices: Wheelchair Allergies Allergies Allergy/AdvReac Type Severity Reaction Status Date / Time adhesive Allergy Intermediate SKIN Verified 09/09/22 19:12 BLISTERS tetanus toxoid, adsorbed Allergy Intermediate SWELLING Verified 09/09/22 19:12 AT SITE codeine AdvReac Intermediate HEART Verified 09/09/22 19:12 PALPITATIONS (RECIEVED MORPHINE IV IN 2004 ADMIT) Home Meds Home Medications Medication Instructions Recorded Confirmed acetaminophen 325 mg tablet 650 mg PO Q4 PRN Fever Or Pain 09/27/21 09/09/22 carvedilol 3.125 mg tablet (Coreg) 3.125 mg PO BID 12/11/21 09/09/22 cyanocobalamin (vitamin B-12) 1,000 mcg PO QAM 12/11/21 09/09/22 1,000 mcg capsule polyethylene glycol 3350 17 17 g PO Q24H PRN Constipation 12/11/21 09/09/22 gram/dose oral powder (Miralax) potassium chloride 20 mEq 20 meq PO QAM 04/18/22 09/09/22 tablet,extended release(part/cryst) gabapentin 300 mg capsule See Rx Instructions .Route .COMPLEX 09/09/22 09/09/22 ibuprofen 200 mg tablet 200 mg PO Q12H PRN BREAKTHROUGH 09/09/22 09/09/22 PAIN, MOD TO SEVERE. insulin aspart U-100 100 unit/mL See Rx Instructions .Route .COMPLEX 09/09/22 09/09/22 subcutaneous solution (Novolog U-100 Insulin aspart) insulin glargine 100 unit/mL (3 14 unit SC QAM 09/09/22 09/09/22 mL) subcutaneous pen (Lantus Solostar U-100 Insulin) mineral oil-hydrophil petrolat 1 applic topical TID 09/09/22 09/09/22 topical ointment (Aquaphor topical ointment) nitroglycerin 0.4 mg sublingual 0.4 mg sublingual DIRECTED PRN 09/09/22 09/09/22 tablet (Nitrostat) Chest Pain thiamine HCl (vitamin B1) 100 mg 200 mg PO DAILY 09/09/22 09/09/22 tablet (Vitamin B-1) Previous Rx's Medication Instructions Recorded incontinence pad, liner, disp #168 ea 08/11/19 (Overnight Pad For Women) pen needle, diabetic, safety 30 #100 ea 06/28/20 gauge x 1/3" (Novofine Autocover) blood sugar diagnostic (OneTouch #200 ea 11/14/20 Ultra Blue Test Strip) pen needle,diabetic dual safty 30 #200 ea 11/14/20 gauge x 3/16" (BD AutoShield Duo Pen Needle) cholecalciferol (vitamin D3) 50 2,000 unit PO QAM #30 caps 05/29/21 mcg (2,000 unit) capsule donepezil 10 mg tablet (Aricept) 10 mg PO HS #90 tabs 05/29/21 prednisone 20 mg tablet 20 mg PO QAM #90 tabs 07/10/21 lancets 30 gauge (ReadyLance #200 ea 07/11/21 Safety Lancets) magnesium oxide 400 mg PO DAILY #30 tabs 05/20/22 pantoprazole 40 mg granules 40 mg PO BID Duodenal Ulcers #60 ea 09/12/22 delayed-release for susp in packet ferrous sulfate 325 mg (65 mg 325 mg PO BIDM #60 tabs 09/13/22 iron) tablet,delayed release folic acid 400 mcg tablet 400 mcg PO QAM #30 tabs 09/13/22 Results & Data (ED) Vital Signs Vital Signs - 24 hr 10/14/22 13:31 10/14/22 13:36 Temperature 36.4 C L Temperature Source Oral Pulse Rate 81 78 Respiratory Rate 18 Respiratory Effort / Characteristics Non-Labored Spontaneous Respiratory Depth Normal Respiratory Pattern Regular Blood Pressure 132/67 Blood Pressure Mean 88 Blood Pressure Position Sitting Pulse Oximetry 99 Oxygen Delivery Method Room Air Sepsis Recent Fever Within 48 Hours No Sepsis New/Unexplained Change in Mental Status No Sepsis Action Taken by Nursing No Action Required Laboratory Data 10/14/22 13:52 10/14/22 13:47 Lab Results 10/14/22 10/14/22 10/14/22 Range/Units 13:47 13:52 14:17 WBC 9.55 (4.8-10.8) K/ul RBC 3.49 L (4.20-5.40) M/uL Hgb 11.0 L (12.0-16.0) g/dl Hct 36.2 L (37.0-47.0) % MCV 103.7 H (80.0-100.0) fL MCH 31.5 (25.0-34.0) pg MCHC 30.4 L (32.0-36.0) g/dL RDW Std Deviation 68.7 H (36.4-46.3) fL RDW Coeff of Junie 18.1 H (11.5-14.5) % Plt Count 315 (130-400) K/uL MPV 9.8 (9.4-12.4) fL Immature Gran % (Auto) 0.7 % Neut % (Auto) 85.5 % Lymph % (Auto) 11.0 % [place] % (Auto) 2.2 % Eos % (Auto) 0.4 % Baso % (Auto) 0.2 % Neut # (Auto) 8.16 H (1.40-6.50) K/uL Lymph # (Auto) 1.05 L (1.2-3.4) K/uL [place] # (Auto) 0.21 (0.11-0.59) K/uL Eos # (Auto) 0.04 (0-0.50) K/uL Baso # (Auto) 0.02 (0-0.2) K/uL Immature Gran # (Auto) 0.07 (0.01-0.20) K/uL Sodium 144 (136-145) mmol/L Potassium 4.8 (3.5-5.1) mmol/L Chloride 109 H (98-107) mmol/L Carbon Dioxide 31 (21-32) mmol/L Anion Gap 4 (3-11) BUN 41 H (6-23) mg/dl Creatinine 0.55 L (0.6-1.2) mg/dl Est Cr Clr Drug Dosing Not Reportable Est GFR ( Amer) 98.4 ml/min Est GFR (Non-Af Amer) 84.9 ml/min BUN/Creatinine Ratio 74.5 H (10-20) Glucose 105 H (70-99(Fasting)) mg/dl Calcium 10.0 (8.6-10.3) mg/dl Total Bilirubin 1.0 (0.2-1.0) mg/dl AST 12 L (13-39) U/L ALT 11 (7-52) U/L Alkaline Phosphatase 95 (34-104) U/L Troponin I High Sens 11.3 (0-14) pg/ml Total Protein 5.6 L (6.0-8.3) gm/dl Albumin 3.1 L (3.4-5.0) gm/dl Globulin 2.5 (2.5-4.0) gm/dl Albumin/Globulin Ratio 1.2 (0.9-2) Lipase 48 (11-82) U/L Urine Color Yellow Urine Appearance Cloudy A (Clear) Urine pH >= 9.0 H (4.5-7.5) Ur Specific [place] 1.015 (1.000-1.030) Urine Protein 2+ H (Negative) Urine Glucose (UA) Negative (Negative) Urine Ketones Negative (Negative) Urine Blood Trace-intact H (Negative) Urine Nitrite Negative (Negative) Urine Bilirubin Negative (Negative) Urine Urobilinogen Negative (Negative) Ur Leukocyte Esterase 1+ H (Negative) Urine RBC 10-30 H (0-4) /hpf Urine WBC 10-30 H (0-5) /hpf Ur Epithelial Cells 0-5 (0-5) /lpf Calcium Oxalate Crystal Present A (None Prsent) Urine Bacteria 4+ H (Negative) Administered Medications Discontinued Medications Sodium Chloride (Nss 1000ml) 1,000 mls @ 999 mls/hr IV .Q1H1M ONE Stop: 10/14/22 14:31 Last Infusion: 10/14/22 14:46 Dose: 0 mls/hr Documented By: Admin: 10/14/22 13:44 Dose: 999 mls/hr Documented By: FADIA Ceftriaxone Sodium (Rocephin) 2,000 mg in 70 mls @ 140 mls/hr IV NOW STA Stop: 10/14/22 15:46 Last Admin: 10/14/22 16:46 Dose: 140 mls/hr Documented By: JERONIMO Imaging Data Radiologist's Impression: Chest X-Ray 10/14/22 13:27 XR chest 1V portable CLINICAL HISTORY: Altered mental status. COMPARISON STUDY: Chest CT August 06, 2022 and chest radiograph September 09, 2022. FINDINGS: Left humeral internal fixation is partially imaged. Cardiomegaly is unchanged. There is no evidence for pulmonary edema. No pneumothorax or pleural effusion is present. No consolidation is identified. Cholecystectomy clips are incidentally noted. Apparent left basilar opacity is likely artifactual. IMPRESSION: No definite acute cardiopulmonary findings. Apparent left basilar opacity is likely artifactual. Airspace opacity could appear similar. ACT 112: Negative or not required by law. Electronically signed by: Enrrique Johns M.D. 10/14/2022 2:15 PM Venous Doppler Study 10/14/22 13:31 RIGHT LOWER EXTREMITY VENOUS DOPPLER CLINICAL HISTORY: Right lower extremity pain. COMPARISON STUDY: Bilateral lower extremity venous Doppler ultrasound December 17, 2021. TECHNIQUE: Sonography of the deep venous system of the right lower extremity was performed. Compression and augmentation were evaluated. FINDINGS: There is deep venous thrombus within the right common femoral, femoral, popliteal, posterior tibial and peroneal veins. IMPRESSION: Positive study for deep venous thrombus within the right common femoral, femoral, popliteal, posterior tibial and peroneal veins. ACT 112: Negative or not required by law. Electronically signed by: Enrrique Johns M.D. 10/14/2022 3:13 PM Discharge Plan Visit Data Chief Complaint: Altered Mental Status ED Provider: Good Vazquez Discharge Problem: Weakness, Acute confusion, DVT (deep venous thrombosis) Forms Stand Alone Forms: My [facility] [place] Paper Prescriptions Prescriptions: No Action (DME) Overnight Pad For Women Pad See Rx Instructions .ROUTE .MEDSUPPLY Qty: 168 3RF Rx Instructions: USE TWICE DAILY. (DME) Novofine Autocover 30 gauge x 1/3" needle See Rx Instructions .ROUTE .MEDSUPPLY Qty: 100 3RF Rx Instructions: tests 2 times daily E 11.9 (DME) OneTouch Ultra Blue Test Strip Strip See Rx Instructions .ROUTE .MEDSUPPLY Qty: 200 3RF Rx Instructions: TEST SUGARS TWICE DAILY (DME) BD AutoShield Duo Pen Needle 30 gauge x 3/16" needle See Rx Instructions .ROUTE .MEDSUPPLY Qty: 200 3RF Rx Instructions: use to inject insulin twice daily donepezil [Aricept] 10 mg tablet 10 mg PO HS Qty: 90 3RF cholecalciferol (vitamin D3) 50 mcg (2,000 unit) capsule 2,000 unit PO QAM Qty: 30 6RF prednisone 20 mg tablet 20 mg PO QAM Qty: 90 3RF (DME) lancets [ReadyLance Safety Lancets] 30 gauge misc See Rx Instructions .ROUTE .MEDSUPPLY Qty: 200 3RF Rx Instructions: USE TO TEST TWICE DAILY. DX: E11.9 acetaminophen 325 mg tablet 650 mg PO Q4 MDD 3 GRAMS/24 HOURS PRN (Reason: Fever Or Pain) Rx Instructions: see routine order polyethylene glycol 3350 [Miralax] 17 gram/dose Powder 17 g PO Q24H PRN (Reason: Constipation) carvedilol [Coreg] 3.125 mg tablet 3.125 mg PO BID cyanocobalamin (vitamin B-12) 1,000 mcg capsule 1,000 mcg PO QAM magnesium oxide 400 mg magnesium tablet 400 mg PO DAILY Qty: 30 1RF potassium chloride 20 mEq tablet,ER particles/crystals 20 meq PO QAM thiamine HCl (vitamin B1) [Vitamin B-1] 100 mg Tablet 200 mg PO DAILY Aquaphor Ointment 1 applic TOPICAL TID Rx Instructions: APPLY TO BUTTOCKS, SACRUM. insulin aspart U-100 [Novolog U-100 Insulin aspart] 100 unit/mL Solution See Rx Instructions .ROUTE .COMPLEX Rx Instructions: TAKES 5 UNITS QAM, THEN 10 UNITS Q LUNCH & SUPPER. ibuprofen 200 mg Tablet 200 mg PO Q12H PRN (Reason: BREAKTHROUGH PAIN, MOD TO SEVERE.) nitroglycerin [Nitrostat] 0.4 mg Tablet, Sublingual 0.4 mg sublingual DIRECTED PRN (Reason: Chest Pain) Rx Instructions: EVERY 5 MIN. NEEDED, UP TO 3 DOSES. gabapentin 300 mg Capsule See Rx Instructions .ROUTE .COMPLEX Rx Instructions: 300 mg orally; TAKES 600 MG QAM & HS, TAKES 300 MG QAFTERNOON. HOLD FOR LETHARGY. insulin glargine [Lantus Solostar U-100 Insulin] 100 unit/mL (3 mL) insulin pen 14 unit SC QAM Rx Instructions: hold for BSG < 150 pantoprazole [address] For Susp In Packet 40 mg PO BID Qty: 60 0RF Rx Instructions: take 30-60 minutes before food ferrous sulfate 325 mg (65 mg iron) Tablet,Delayed Release (Dr/Ec) 325 mg PO BIDM Qty: 60 0RF folic acid 400 mcg Tablet 400 mcg PO QAM Qty: 30 0RF Referrals Referrals: Jan Royal [place] [Primary Care Provider] -
[2022-10-14 14:07] LABS: Basophils # (auto) 0.02 K/uL (0-0.2); Basophils % (auto) 0.2 %; Eosinophils # (auto) 0.04 K/uL (0-0.50); Eosinophils % (auto) 0.4 %; Hematocrit (blood only) 36.2 % (37.0-47.0); Immature Granulocytes # (auto) 0.07 K/uL (0.01-0.20); Immature Granulocytes % (auto) 0.7 %; Lymphocytes # (auto) 1.05 K/uL (1.2-3.4); Mean Corpuscular Hemoglobin 31.5 pg (25.0-34.0); Mean Corpuscular Hgb Conc 30.4 g/dL (32.0-36.0); Mean Corpuscular Volume 103.7 fL (80.0-100.0); Mean Platelet Volume 9.8 fL (9.4-12.4); Monocytes # (auto) 0.21 K/uL (0.11-0.59); Monocytes % (auto) 2.2 %; Neutrophils # (auto) 8.16 K/uL (1.40-6.50); Neutrophils % (auto) 85.5 %; Platelet Count 315 K/uL (130-400); RDW Coefficient of Variation 18.1 % (11.5-14.5); RDW Standard Deviation 68.7 fL (36.4-46.3); Red Blood Count 3.49 M/uL (4.20-5.40); White Blood Count 9.55 K/ul (4.8-10.8)
--- NOTE | 2022-10-14 14:18 | XRay Report ---
XR chest 1V portable CLINICAL HISTORY: Altered mental status. COMPARISON STUDY: Chest CT August 06, 2022 and chest radiograph September 09, 2022. FINDINGS: Left humeral internal fixation is partially imaged. Cardiomegaly is unchanged. There is no evidence for pulmonary edema. No pneumothorax or pleural effusion is present. No consolidation is neftaly ntified. Cholecystectomy clips are incidentally noted. Apparent left basilar opacity is likely artifa ctual. IMPRESSION: No definite acute cardiopulmonary findings. Apparent left basilar opacity is likely iza factual. Airspace opacity could appear similar. ACT 112: Negative or not required by law. Electronically signed by: Enrrique Johns M.D. 10/14/2022 2:15 PM
[2022-10-14 14:25] LABS: Alanine Aminotransferase 11 U/L (7-52); Albumin Globulin Ratio 1.2 (0.9-2); Albumin Level 3.1 gm/dl (3.4-5.0); Alkaline Phosphatase 95 U/L (34-104); Anion Gap 4 (3-11); Aspartate Aminotransferase 12 U/L (13-39); BUN Creatinine Ratio 74.5 (10-20); Blood Urea Nitrogen 41 mg/dl (6-23); Carbon Dioxide 31 mmol/L (21-32); Chloride 109 mmol/L (98-107); Est GFR (African American) 98.4 ml/min; Est GFR (Non-African American) 84.9 ml/min; Globulin 2.5 gm/dl (2.5-4.0); Glucose 105 mg/dl (70-99(Fasting)); Lipase 48 U/L (11-82); Potassium 4.8 mmol/L (3.5-5.1); Sodium 144 mmol/L (136-145); Total Protein 5.6 gm/dl (6.0-8.3)
[2022-10-14 14:32] LABS: Troponin I High Sensitivity 11.3 pg/ml (0-14)
[2022-10-14 14:44] LABS: Appearance Urine Cloudy (Clear); Bilirubin Urine Negative (Negative); Blood Urine Trace-intact (Negative); Color Urine Yellow; Glucose Urine UA Negative (Negative); Ketones Urine Negative (Negative); Leukocyte Esterase Urine 1+ (Negative); Nitrite Urine Negative (Negative); Protein Urine 2+ (Negative); Specific Gravity Urine 1.015 (1.000-1.030); Urobilinogen Urine Negative (Negative); pH Urine >= 9.0 (4.5-7.5)
--- NOTE | 2022-10-14 15:15 | Ultrasound Report ---
RIGHT LOWER EXTREMITY VENOUS DOPPLER CLINICAL HISTORY: Right lower extremity pain. COMPARISON STUDY: Bilateral lower extremity venous Doppler ultrasound December 17, 2021. TECHNIQUE: Sonography of the deep venous system of the right lower extremity was performed. Compress ion and augmentation were evaluated. FINDINGS: There is deep venous thrombus within the right common femoral, femoral, popliteal, posterio r tibial and peroneal veins. IMPRESSION: Positive study for deep venous thrombus within the right common femoral, femoral, poplite al, posterior tibial and peroneal veins. ACT 112: Negative or not required by law. Electronically signed by: Enrrique Johns M.D. 10/14/2022 3:13 PM
[2022-10-14] MEDS ORDERED: cefTRIAXone SODIUM 2,000 MG/70 ML BAG IV STA (15:17)
[2022-10-14] MEDS ORDERED: Heparin IV Adult Wt-Based Standard WITH Bolus Protocol IV STA (15:22)
[2022-10-14 15:26] LABS: Bacteria Urine 4+ (Negative); Calcium Oxalate Crystals Urine Present (None Prsent)
[2022-10-14 15:27] LABS: Epithelial Cell Urine 0-5 /lpf (0-5)
[2022-10-14] MEDS ORDERED: HEPARIN SOD (PORCINE) 1000 UNIT/ML IV ONE (15:37)
--- NOTE | 2022-10-14 16:13 | History & Physical Report ---
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 UA in the ED was abnormal and concerning for recurrent UTI. She was also noted to have recent RLE pain and swelling so Doppler checked and revealed extensive DVT. Difficult to determine pt's baseline mental status with advanced dementia but it does seem like she is more lethargic than baseline today. - Admit to PCU - Started on heparin gtt in the ED - will continue - Continue ertapenem for presumed UTI pending urine culture - Gentle IVF for another liter due to probable dehydration - Holding diet until less lethargic then will resume regular diet as ordered at [facility] - Discussed with son possible palliative care consult to help establish goals of care in view of pt's advanced dementia and frequent hospitalizations - he con firmed that she is DNR/DNI and that they would not want aggressive measures but would agree with heparin and IV antibiotics at this point - Labs in AM - monitor for evidence of bleeding on heparin, follow BUN/Creatinine (2) UTI (urinary tract infection): Plan: See plan for #1 (3) Sacral ulcer: (4) DVT (deep venous thrombosis): Plan: Started heparin gtt - will continue for now (5) Weakness: Plan: Once lethargy improves, consider PT/OT evals (6) Type 2 diabetes mellitus: Plan: Insulin sliding scale, BSG ACHS (7) Polymyalgia rheumatica: Plan: Continue chronic prednisone (8) Hypertension: (9) Chronic steroid use: (10) Alzheimer disease: Plan Continue other home medications as appropriate/mental status permits. Updated son, Derek, via phone - agreeable to plan of care. All questions answered. Pt seen and reviewed with collaborating physician, Dr. Norman. Plan of care discussed and as outlined above. 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 Pt's anemia has been improving outpatient with labs from 10/09 showing H&H of 9.0/30.0. History from the patient is unobtainable due to confusion and advanced dementia so prior records reviewed including recent notes from SNF and recent admission to [facility]. Additional history obtained from pt's son, Derek, by phone. Pt's most recent baseline seems to be oriented to person most days but not always time or place. Does not always recognize family and speaks about family members who are as if they are still alive. She is wheelchair bound at baseline. Initially after discharge last month, she wasn't eating much and was often refusing oral meds but this has improved. Pt's son states he received a phone call earlier today that pt was more confused and lethargic so they were sending her to the ED due to concern for another UTI. He also noted that she was having some pain in the RLE recently and there appears to have been a RLE doppler that was ordered at the SNF but not yet scheduled. Doppler in the ED reveals extensive RLE DVT - son does not recall pt every having something similar previously though chart lists a possible PE in 2019. No reports of chest pain or increased dyspnea. Not on anticoagulation prior to today in view of recent anemia and hx GI bleeds. Allergies Allergy/AdvReac Type Severity Reaction Status Date / Time adhesive Allergy Intermediate SKIN Verified 10/14/22 17:23 BLISTERS tetanus toxoid, adsorbed Allergy Intermediate SWELLING Verified 10/14/22 17:23 AT SITE codeine AdvReac Intermediate HEART Verified 10/14/22 17:23 PALPITATIONS (RECIEVED MORPHINE IV IN 2004 ADMIT) Home Medications Medication Instructions Recorded Confirmed Type acetaminophen 325 mg tablet 650 mg PO Q4 PRN .fever/mild pain 10/14/22 10/14/22 History (Tylenol) acetaminophen 650 mg 650 mg PO Q8H 10/14/22 10/14/22 History tablet,extended release carvedilol 3.125 mg tablet 3.125 mg PO BID 10/14/22 10/14/22 History cholecalciferol (vitamin D3) 50 50 mcg PO DAILY 10/14/22 10/14/22 History mcg (2,000 unit) tablet (Vitamin D3) cyanocobalamin (vitamin B-12) 1,000 mcg PO DAILY 10/14/22 10/14/22 History 1,000 mcg tablet (Vitamin B-12) donepezil 10 mg tablet 10 mg PO HS 10/14/22 10/14/22 History folic acid 400 mcg tablet 0.4 mg PO DAILY 10/14/22 10/14/22 History gabapentin 600 mg tablet 600 mg PO TID 10/14/22 10/14/22 History ibuprofen 200 mg tablet 200 mg PO Q12 PRN .Breakthrough 10/14/22 10/14/22 History pain, mod-severe insulin aspart U-100 100 unit/mL 5 unit subcut TIDM 10/14/22 10/14/22 History (3 mL) subcutaneous pen insulin glargine 100 unit/mL (3 10 unit subcut QAM 10/14/22 10/14/22 History mL) subcutaneous pen (Lantus Solostar U-100 Insulin) magnesium oxide 400 mg PO DAILY 10/14/22 10/14/22 History mineral oil-hydrophil petrolat 1 applic topical TID 10/14/22 10/14/22 History topical ointment (Aquaphor topical ointment) nitroglycerin 0.4 mg sublingual 0.4 mg sublingual DIRECTED PRN 10/14/22 10/14/22 History tablet Chest Pain pantoprazole 40 mg granules 40 mg PO BID 10/14/22 10/14/22 History delayed-release for susp in packet polyethylene glycol 3350 17 gram 17 g PO DAILY PRN Constipation 10/14/22 10/14/22 History oral powder packet (Miralax) potassium chloride 20 mEq 20 meq PO QAM 10/14/22 10/14/22 History tablet,extended release(part/cryst) prednisone 20 mg tablet 10 mg PO QAM 10/14/22 10/14/22 History thiamine HCl (vitamin B1) 100 mg 200 mg PO QAM 10/14/22 10/14/22 History tablet Past Med/Surg History Medical History (Updated 10/14/22 @ 18:20 by Luanne Plascencia PA-C) Alzheimer disease Anemia B12 deficiency Chronic SI joint pain Cognitive impairment Cyst of kidney, acquired Dementia Depression Dysphagia Encephalopathy Hx (entered from remote 2019 [facility] records) Encephalopathy acute Fungal dermatitis Gait instability Gastroesophageal reflux GI bleed History of respiratory failure Hx (entered from remote 2019 [facility] records) Hx pulmonary embolism Hx (entered from remote 2019 [facility] records) Hyperlipidemia Hypertension 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 Converted to NSR after dilt ggt and treatment of sepsis Polymyalgia rheumatica Polymyalgia rheumatica Prosthetic joint implant failure Sepsis 2018 (pyelonephritis with obstructing calculus) Skin cancer PERSONAL HX MALIGNANT MELANOMA Spinal stenosis, lumbar region without neurogenic claudication Stage III pressure ulcer of sacral region Type 2 diabetes mellitus Type 2 diabetes mellitus Ureterolithiasis Vitamin D deficiency Wounds, multiple Stage III pressure ulcer of sacral region, Open R/L lower leg wounds Follows with [facility] [place] [facility] Surgical History H/O cystoscopy Cyst with L stent (06/15/2019) at [facility]. MAC. Patient given insulin for hyperglycemia and metoprolol and cardizem intraop. Cysto/stent (12/11/21): MAC at [facility]. No issues noted per post-op anesthesia progress note. H/O: hysterectomy History of appendectomy History of knee replacement procedure of left knee History of knee replacement procedure of right knee History of open reduction and internal fixation (ORIF) procedure L HUMEROUS Hx of cholecystectomy Hx of excision of epidermal inclusion cyst Hx of tonsillectomy Presence urogenital implant Family History Sister Diabetes Stroke Brother Diabetes Prostate cancer Father Lung disease Social History Smoking Status: Former smoker Cigarettes Per Day: UTO; Hx Alcohol Use: No Hx Substance Use: No Preferred Language: Barbadian Communication Ability: Effective Communication Ability Comment: communication impaired Communication Tools: Facial Expression, Physical Gestures and Lip Movement/Reading Visual Impairment: Limited Hearing Ability: Hard of Hearing Security Administrator Required: No Beliefs That Will Affect Care: None marital status: / Current Living Situation: Long Term Current Living Situation Comment: Pt lives at [facility] current occupational status: retired How many Children do You have: 1 Feels Safe at Home: Yes caffeine: No Seatbelt Use: always Assistive Devices: Wheelchair Review of Systems Review of Systems: Unobtainable due to cognitive status Physical Exam Constitutional: + altered mental status; no acute distress Eyes: + anicteric sclerae Neck: trachea midline Respiratory: no respiratory distress and no labored breathing Auscultation: lungs clear to auscultation bilaterally Cardiovascular: Rate/Rhythm: regular rate and regular rhythm Gastrointestinal (Abdomen): Inspection/Auscultation: normal bowel sounds; abdomen not distended Percussion/Palpation: abdomen soft Musculoskeletal: Head/Neck/Chest: normocephalic and head atraumatic Neurologic: moves all extremities and + confused Psychiatric: Orientation: oriented to person; + not oriented to place and + not oriented to time Results & Data Results & Data Vital Signs (Past 12 Hours) Vital Signs Temp Pulse Resp BP Pulse Ox O2 Del Method 10/14/22 13:36 78 10/14/22 13:31 36.4 C L 81 18 132/67 99 Room Air Laboratory Results Laboratory Results - last 24 hr 10/14/22 10/14/22 10/14/22 13:47 13:52 14:17 WBC 9.55 RBC 3.49 L Hgb 11.0 L Hct 36.2 L MCV 103.7 H MCH 31.5 MCHC 30.4 L RDW Std Deviation 68.7 H RDW Coeff of Junie 18.1 H Plt Count 315 MPV 9.8 Immature Gran % (Auto) 0.7 Neut % (Auto) 85.5 Lymph % (Auto) 11.0 [place] % (Auto) 2.2 Eos % (Auto) 0.4 Baso % (Auto) 0.2 Neut # (Auto) 8.16 H Lymph # (Auto) 1.05 L [place] # (Auto) 0.21 Eos # (Auto) 0.04 Baso # (Auto) 0.02 Immature Gran # (Auto) 0.07 Sodium 144 Potassium 4.8 Chloride 109 H Carbon Dioxide 31 Anion Gap 4 BUN 41 H Creatinine 0.55 L Est Cr Clr Drug Dosing Not Reportable Est GFR ( Amer) 98.4 Est GFR (Non-Af Amer) 84.9 BUN/Creatinine Ratio 74.5 H Glucose 105 H Calcium 10.0 Total Bilirubin 1.0 AST 12 L ALT 11 Alkaline Phosphatase 95 Troponin I High Sens 11.3 Total Protein 5.6 L Albumin 3.1 L Globulin 2.5 Albumin/Globulin Ratio 1.2 Lipase 48 Urine Color Yellow Urine Appearance Cloudy A Urine pH >= 9.0 H Ur Specific [place] 1.015 Urine Protein 2+ H Urine Glucose (UA) Negative Urine Ketones Negative Urine Blood Trace-intact H Urine Nitrite Negative Urine Bilirubin Negative Urine Urobilinogen Negative Ur Leukocyte Esterase 1+ H Urine RBC 10-30 H Urine WBC 10-30 H Ur Epithelial Cells 0-5 Calcium Oxalate Crystal Present A Urine Bacteria 4+ H Diagnostic Findings Chest X-Ray 10/14/22 13:27 XR chest 1V portable CLINICAL HISTORY: Altered mental status. COMPARISON STUDY: Chest CT August 06, 2022 and chest radiograph September 09, 2022. FINDINGS: Left humeral internal fixation is partially imaged. Cardiomegaly is unchanged. There is no evidence for pulmonary edema. No pneumothorax or pleural effusion is present. No consolidation is identified. Cholecystectomy clips are incidentally noted. Apparent left basilar opacity is likely artifactual. IMPRESSION: No definite acute cardiopulmonary findings. Apparent left basilar opacity is likely artifactual. Airspace opacity could appear similar. ACT 112: Negative or not required by law. Electronically signed by: Enrrique Johns M.D. 10/14/2022 2:15 PM Venous Doppler Study 10/14/22 13:31 RIGHT LOWER EXTREMITY VENOUS DOPPLER CLINICAL HISTORY: Right lower extremity pain. COMPARISON STUDY: Bilateral lower extremity venous Doppler ultrasound December 17, 2021. TECHNIQUE: Sonography of the deep venous system of the right lower extremity was performed. Compression and augmentation were evaluated. FINDINGS: There is deep venous thrombus within the right common femoral, femoral, popliteal, posterior tibial and peroneal veins. IMPRESSION: Positive study for deep venous thrombus within the right common femoral, femoral, popliteal, posterior tibial and peroneal veins. ACT 112: Negative or not required by law. Electronically signed by: Enrrique Johns M.D. 10/14/2022 3:13 PM Medications Administered Discontinued Medications Sodium Chloride (Nss 1000ml) 1,000 mls @ 999 mls/hr IV .Q1H1M ONE Stop: 10/14/22 14:31 Last Infusion: 10/14/22 14:46 Dose: 0 mls/hr Documented By: Admin: 10/14/22 13:44 Dose: 999 mls/hr Documented By: FADIA Supervising Physician Co-Signing Physician Notes Pt is a 87 y/o F with hx of recent ESBL E.coli UTI, VRE infection with prior hx of [facility] course of linezolid, severe dementia, multiple skin wounds, DMII, Hx of PE, PMR on chronic prednisone admitted for acute UTI with AMS and RLE DVT. PE: NAD, well developed Cardiac: Normal S1/S2, no murmur Lungs: CTA, no wheezing or crackles Abd: NT, ND, soft MSK: RLE swelling with erythema and mild pitting edema of the LLE Psych: AAOx1 (person only) A/P: AMS (metabolic encephalopathy) 2/2 UTI: -due to prior hx of ESBL E.coli will start pt on ertapenem - UCx and BCx sent RLE DVT: -due to the extensive nature of the DVT will start pt on heparin drip Severe Dementia: -palliative consult for goals of care discuss gabby with multiple hospital admission recently --- Luanne Plascencia PA-C spoke to pts son Other chronic conditions: plan as above Agree with A/P Luanne Plascencia PA-C (8) Hypertension Hypertension type: unspecified Qualified Code(s): I10 - Essential (primary) hypertension
[2022-10-14] MEDS ORDERED: ERTAPENEM SODIUM 1,000 MG in SYRINGE 0 ML IV STA (16:41)
[2022-10-14 17:52] LABS: Partial Thromboplastin Ratio 1.1; Partial Thromboplastin Time 29.2 Seconds (21.0-31.0)
[2022-10-14] MEDS: HEPARIN SODIUM/DEXTROSE 25,000 UNITS/500 ML BAG IV SCH (18:06)
[2022-10-14] MEDS ORDERED: SODIUM CHLORIDE 0.9% 1000ML 1,000 ML IV SCH (20:49)
[2022-10-14] MEDS: Patient's HEIGHT &/or WEIGHT Needed SCH (20:52)
[2022-10-14] MEDS ORDERED: Patient's HEIGHT &/or WEIGHT Needed STA (20:55)
[2022-10-15 01:31] LABS: Partial Thromboplastin Time 53.8 Seconds (21.0-31.0)
[2022-10-15 08:31] LABS: Basophils # (auto) 0.04 K/uL (0-0.2); Basophils % (auto) 0.5 %; Eosinophils # (auto) 0.31 K/uL (0-0.50); Eosinophils % (auto) 3.6 %; Hematocrit (blood only) 32.1 % (37.0-47.0); Hemoglobin 9.7 g/dl (12.0-16.0); Immature Granulocytes # (auto) 0.03 K/uL (0.01-0.20); Immature Granulocytes % (auto) 0.3 %; Lymphocytes # (auto) 2.46 K/uL (1.2-3.4); Lymphocytes % (auto) 28.2 %; Mean Corpuscular Hemoglobin 30.8 pg (25.0-34.0); Mean Corpuscular Hgb Conc 30.2 g/dL (32.0-36.0); Mean Corpuscular Volume 101.9 fL (80.0-100.0); Monocytes # (auto) 0.69 K/uL (0.11-0.59); Monocytes % (auto) 7.9 %; Neutrophils # (auto) 5.18 K/uL (1.40-6.50); Neutrophils % (auto) 59.5 %; Platelet Count 270 K/uL (130-400); RDW Coefficient of Variation 17.6 % (11.5-14.5); RDW Standard Deviation 65.7 fL (36.4-46.3); Red Blood Count 3.15 M/uL (4.20-5.40); White Blood Count 8.71 K/ul (4.8-10.8)
[2022-10-15 09:16] LABS: Partial Thromboplastin Ratio 2.4
--- NOTE | 2022-10-15 09:29 | Palliative Care Consultation ---
Date of Consultation October 15, 2022 Assessment & Plan (1) Palliative care by specialist: Met with pt family. Provided overview of Palliative Medicine, a subspecialty that provides specialized medical care for people living with a serious illness by offering a focus on quality of life. Palliative Medicine is often conflated with hospice: I advised patient/family that Palliative and hospice can be partners but we are not the same. It is important to understand the difference so that we may be informed, and not afraid. Palliative Medicine works to improve QOL through reduction of symptom burden/more control over their illness, for both the patient and family. Palliative medicine clinicians are board certified, specially-trained and another member of the patient's medical care team. We often provide an extra layer of support because our care is based on the needs of the patient, not the prognosis; as such, it's appropriate at any age/advancing stage of a serious illness and can be provided along with curative treatment. Palliative Medicine clinicians are also trained in advanced communication methodologies, to facilitate complex discussions about advanced illness planning, which are needed to help assure that the treatment choices match the patient's goals, aka delivering Goal Concordant care. Finally, we discussed that hospice is a visiting nurse service that focuses on care delivered at the very end of life for patients with terminal illness, with life expectancy less than 6 month. (2) Discussion about advance care planning held with family member: A 35min telephonic ACP was held with pt surrogate/HCP son/Derek We reviewed that all chronic/progressive disease has a declining trajectory over time where facets of patient self-identity and independence are lost. Every acute event leads to a further decline, resulting- many times, in a new baseline. Advised that the greatest priority is to determine what matters most to pt, then family and to develop a plan of care that is aligned with those priorities. We reviewed the following facts about dementia: * Dementia is a terminal illness. Aggressive medical treatment for residents with advanced dementia is often inappropriate for medical reasons, has a low rate of success, and can have negative outcomes that hasten functional decline and . ([place] [employer] Ethics Committee and Clinical Practice and Models of Care Committee. J Am Geriatr Soc. 2014 Aug;62(8):1590-3 and Reji SL, Lucieno JM, Pérez SC, Galindo V. A national study of the location of for older persons with dementia. J Am Geriatr Soc 2005; 53(2):299-305 .) * Tube feeding in residents with advanced dementia does not increase survival. It does not prevent aspiration pneumonia, malnutrition or pressure ulcers. It does not reduce the risk of infections or improve functional status or comfort of the patient. (from: Cristy Bergman LM T Percutaneous endoscopic gastrostomy does not prolong survival in patients with dementia. [employer] Med 2003; 163(11):3562-9251 AND Nura PEREZ, Yair SAMY, Eddie J, Guillermo S, Siddharth RS. High short-term mortality in hospitalized patients with advanced dementia - Lack of benefit of tube feeding. [employer] Med 2001; 161(4):594- 599.) * Simple strategies involving hands-on care by well-trained staff such as massage, oral hygiene, changes in diet, and hand-feeding -- can prevent infection and manage feeding problems without resort to tube-feeding. * Tube feeding does not prevent aspiration pneumonia and might actually increase its incidence, and does not prevent the consequences of malnutrition. * Hand feeding can be provided until the beginning of the dying process when all physiological processes shut down, note that cognitively intact cancer patients indicate that dying residents do not feel hunger and thirst. * Voluntary refusal of food and liquids is often initiated by hospice patients and does not result in discomfort. * The majority of older Americans whose underlying cause of is attributable to dementia on their certificate in nursing homes. State-level factors, including the availability of hospital and [facility] beds and the age of decedents in the population, explain, in part, the wide [id number] variability in the proportion of dementia-related deaths occurring in the hospital. * Older adults with dementia frequently receive acute care in their last year of life although Hospice care was more common for home/LILIAN residents. Overall time in hospice remains short due to the underutilization of the hospice benefit for terminal dementia (Jeannie MM, Satishrd JM, Garcia KM, Jw DE, Basilio PY. Dementia Care in the Last Year of Life: Experiences in a Critical access hospital Practice and in Detention Facilities. J Palliat Care. 2022;38(2):135-142. doi:10.1177/[id number].) * Home Hospice is a valuable option for terminal dementia who desire to have peaceful EOL at home. Home hospice care for advanced dementia can improve symptom management and caregiver satisfaction, while decreasing caregiver burden, preventing hospitalizations and discontinuing unnecessary medications (Jose Cruz UNGER, Rashi R, Homar G, et al. Home hospice for older people with advanced dementia: a pilot boat deckhand project [published correction appears in Isr J Health Policy Res. 2019 Jan 05;8(1):56]. Isr J Health Policy Res. 2019;8(1):42. Published 2018November 10. doi:10.1186/t04869-685-3552-r.) * If the plan if for SNF placement, I recommend hospice at SNF: Hospice is a valuable service for persons with advanced dementia, particularly in management of pain, continuous involvement of the primary physician, and avoidance of hospitalization. Social support provided to caregivers is also important given their high levels of depressive symptoms and anxiety. The goal of care for residents with advanced dementia is primarily maintenance of function and patient should not be transferred to an acute care setting because hospitalization results in decline of functional abilities that do not recover after discharge back into [facility]. If this is desired, then Care Mgt follow up is needed to determine if pt is eligible for hospice at SNF/deferred to CM and primary team. * I spoke with Derek about all of the above and reviewed his wishes for patient's care: he states the family wishes to focus on comfort and that the PA-C carng for Mom at [facility] very recently (just last week) suggested "moving Mom to palliative care." We discussed the meaning of Palliative Medicine and end of life care with hospice: he admits feeling surprised by the use of the word Hospice and that he recognizes it is a word with a lot of stigma attached, but he is familiar with hospice from another family member. He states [facility]'s PA-C told him that moving patient to "palliative care for end of life care would be reasonable at this stage." I advised Derek that Palliative Medicine is not just end of life care aka hospice: we are partners with hospice but we are not twins with hospice-the difference matters, because understanding the difference is what helps patients and families be informed but not afraid. Those who do not work in Palliative Medicine often conflate it with hospice and this misconception is perpetuated. The difference can be hard to grasp and fully accept for many gabby since Palliative medicine is a newer medicine subspecialty than, for example, oncology. * Derek would like comfort care with hospice IF [facility]. he would like [facility] Care mgt to review with Genny and arrange whichever plan of care Genny prefers ie comfort care or hospice at SNF and would like a call from CM with update afterwards. He lyn snot want more aggressive tx or interventions. he lyn snot want labs or imaging. He does not want return to hospital. (3) Alzheimer disease: FAST 7C+ (4) Weakness: (5) Metabolic encephalopathy: (6) UTI (urinary tract infection): Plan Return to [facility] when stable with comfort care +/- hospice, see discussion above. Treat what's treatable and fix what's fixable this admission, then return to SNF for comfort. Comfort Care Discharge Summary & Plan of Care Patient Name: Zina Castañeda Brief Summary: terminal dementia, recurrent UTI, joint space infection, FAST 7c+. Pt is hospice eligible for terminal dementia. Comfort plan of care agreed upon by: family, Son (Derek) Discussed with Patient/Family on: 10/15/2022, see above Copy of this plan has been given to: CM will send to [facility] Comfort plan of care parameters: 1. Patient and family would like hospice added to their care if [facility] WILL ALLOW 2. Gentle/hospice level rehab/PT/OT for comfort 3. Comfort/End of Life care only 4. No escalation of care: do not increase oxygen, escalate therapies, etc. The focus is on comfort through end of life, assure this is accomplished with aggressive symptom management (i.e. relief of dyspnea, pain, etc.) 5. NO return to hospital 6. No labs 7. No imaging 8. No surgery 9. PO as tolerated for comfort and pleasure/no dietary restriction 10. If difficulty urinating/commode/bedpan, ok to place Gloria catheter for comfort/hygiene/skin protection 11. No calorie counts, No artificial nutrition or hydration, No feeding tubes 12. No IVs Palliative medicine was consulted to assist with clarifying the goals of care. This has been done and is documented above. I will sign off. Thank you for allowing us to participate in the ongoing care of this patient. Please don't hesitate to call or page with any additional concerns. Dr. Stefani Montgomery DNP Director, Palliative Care History of Present Illness Reason for Consultation: On 10/14/22 @ 20:50 Luanne Plascencia Wrote To Jenni Dorantes worsening dementia, establish goals of care Attending Physician: Lemuel Lopez MD History of Present Illness 87yo female admitted 10/14/22 from [facility] where she resides for advanced dementia . 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 She came to ED with report of increased lethargy and confusion above her usual dementia baseline long with changes in her urine. Suspected UTI. RLE was edematous and DVT confirmed "extensive DVT." Per ED note: "Patient is an 87-year-old female who presents to the ER for altered mental status. They note that today she has been much more lethargic and has been opening her eyes. She has been confused. No reported trauma. They are concerned as she has a foul- smelling and darker urine she may have a UTI. They did not check this at the [facility]. They reportedly did an ultrasound and found a blood clot in the right lower extremity but have not treated this or attempted to do anything per report from EMS." She was admitted to PCU and started on heparin infusion, ertapenem for UTI and IVF for rehydration. Her son, Derek, is her HCP. He reaffirmed DNR/DNI status. Palliative Medicine consulted to assist clarifying the goals of care for this advanced dementia patient. Allergies Allergy/AdvReac Type Severity Reaction Status Date / Time adhesive Allergy Intermediate SKIN Verified 10/14/22 17:23 BLISTERS tetanus toxoid, adsorbed Allergy Intermediate SWELLING Verified 10/14/22 17:23 AT SITE codeine AdvReac Intermediate HEART Verified 10/14/22 17:23 PALPITATIONS (RECIEVED MORPHINE IV IN 2004 ADMIT) Home Medications Medication Instructions Recorded Confirmed Type acetaminophen 325 mg tablet 650 mg PO Q4 PRN .fever/mild pain 10/14/22 10/14/22 History (Tylenol) acetaminophen 650 mg 650 mg PO Q8H 10/14/22 10/14/22 History tablet,extended release carvedilol 3.125 mg tablet 3.125 mg PO BID 10/14/22 10/14/22 History cholecalciferol (vitamin D3) 50 50 mcg PO DAILY 10/14/22 10/14/22 History mcg (2,000 unit) tablet (Vitamin D3) cyanocobalamin (vitamin B-12) 1,000 mcg PO DAILY 10/14/22 10/14/22 History 1,000 mcg tablet (Vitamin B-12) donepezil 10 mg tablet 10 mg PO HS 10/14/22 10/14/22 History folic acid 400 mcg tablet 0.4 mg PO DAILY 10/14/22 10/14/22 History gabapentin 600 mg tablet 600 mg PO TID 10/14/22 10/14/22 History ibuprofen 200 mg tablet 200 mg PO Q12 PRN .Breakthrough 10/14/22 10/14/22 History pain, mod-severe insulin aspart U-100 100 unit/mL 5 unit subcut TIDM 10/14/22 10/14/22 History (3 mL) subcutaneous pen insulin glargine 100 unit/mL (3 10 unit subcut QAM 10/14/22 10/14/22 History mL) subcutaneous pen (Lantus Solostar U-100 Insulin) magnesium oxide 400 mg PO DAILY 10/14/22 10/14/22 History mineral oil-hydrophil petrolat 1 applic topical TID 10/14/22 10/14/22 History topical ointment (Aquaphor topical ointment) nitroglycerin 0.4 mg sublingual 0.4 mg sublingual DIRECTED PRN 10/14/22 10/14/22 History tablet Chest Pain pantoprazole 40 mg granules 40 mg PO BID 10/14/22 10/14/22 History delayed-release for susp in packet polyethylene glycol 3350 17 gram 17 g PO DAILY PRN Constipation 10/14/22 10/14/22 History oral powder packet (Miralax) potassium chloride 20 mEq 20 meq PO QAM 10/14/22 10/14/22 History tablet,extended release(part/cryst) prednisone 20 mg tablet 10 mg PO QAM 10/14/22 10/14/22 History thiamine HCl (vitamin B1) 100 mg 200 mg PO QAM 10/14/22 10/14/22 History tablet Patient History Medical History (Updated 10/15/22 @ 11:18 by Stefani Montgomery, MADDY) Alzheimer disease Anemia B12 deficiency Chronic SI joint pain Cognitive impairment Cyst of kidney, acquired Dementia Depression Discussion about advance care planning held with family member Dysphagia Encephalopathy Hx (entered from remote 2018 [facility] records) Encephalopathy acute Fungal dermatitis Gait instability Gastroesophageal reflux GI bleed History of respiratory failure Hx (entered from remote 2018 [facility] records) Hx pulmonary embolism Hx (entered from remote 2018 [facility] records) Hyperlipidemia Hypertension 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 Converted to NSR after dilt ggt and treatment of sepsis Polymyalgia rheumatica Polymyalgia rheumatica Prosthetic joint implant failure Sepsis 2018 (pyelonephritis with obstructing calculus) Skin cancer PERSONAL HX MALIGNANT MELANOMA Spinal stenosis, lumbar region without neurogenic claudication Stage III pressure ulcer of sacral region Type 2 diabetes mellitus Type 2 diabetes mellitus Ureterolithiasis Vitamin D deficiency Wounds, multiple Stage III pressure ulcer of sacral region, Open R/L lower leg wounds Follows with [facility] [place] Surgical History H/O cystoscopy Cyst with L stent (06/15/2019) at [facility]. MAC. Patient given insulin for hyperglycemia and metoprolol and cardizem intraop. Cysto/stent (12/11/21): MAC at [facility]. No issues noted per post-op anesthesia progress note. H/O: hysterectomy History of appendectomy History of knee replacement procedure of left knee History of knee replacement procedure of right knee History of open reduction and internal fixation (ORIF) procedure L HUMEROUS Hx of cholecystectomy Hx of excision of epidermal inclusion cyst Hx of tonsillectomy Presence urogenital implant Family History Sister Diabetes Stroke Brother Diabetes Prostate cancer Father Lung disease Social History Smoking Status: Unknown if ever smoked Cigarettes Per Day: UTO; Hx Alcohol Use: No Hx Substance Use: No Preferred Language: Tuvaluan Communication Ability: Impaired Communication Ability Comment: AMS Communication Tools: Facial Expression, Physical Gestures and Lip Movem ent/Reading Visual Impairment: Limited Hearing Ability: Hard of Hearing Clerk Rating Required: No Beliefs That Will Affect Care: None marital status: / Current Living Situation: Prison Current Living Situation Comment: Pt lives at [facility] current occupational status: retired How many Children do You have: 1 Other Information That Helps Us Care for You: No Feels Safe at Home: Yes caffeine: No Seatbelt Use: always Assistive Devices: None Review of Systems Review of Systems: Unobtainable due to cognitive status Physical Exam Physical Exam: adv dementia, FAST 7c+ unable to follow commands lethargic pale Results & Data Vital Signs (Past 12 Hours) Vital Signs Temp Pulse Pulse Resp BP Pulse Ox O2 Del Method 10/15/22 08:11 36.8 C 85 16 98/52 L 97 Room Air 10/15/22 04:17 36.3 C L 78 16 147/58 H 100 Room Air 10/14/22 22:58 36.4 C L 82 16 139/72 98 Room Air 10/14/22 22:49 78 Laboratory Results data reviewed Diagnostic Findings data reviewed PG Care Time/CCT Total # of Minutes Spent Total Time Spent: 75 Total Time Spent with Patient: Total time spent is greater than 50% in coordination of care (as documented) at patient's floor/unit and/or counseling patient: I spent 75 minutes overall addressing this case: 10 in medical data review/discussion with referring provider(s) and/or preparation for the visit 10 in direct interaction with the patient 35 Advance Care Planning/Goals of Care discussions as detailed above in note (must be >16min) 10 in subsequent review and synthesis of assessment and plan 10 in communicating with other providers regarding the patient's case: primary team and care mgt Advanced Care Planning 59643 Advanced Care Planning 30 [place] [address] IN/OBS CONSULT LVL 5,80M Patient Type New History Comprehensive Exam Comprehensive Medical Decision Making Moderate Complexity Diagnoses Palliative care by specialist Z51.5 Discussion about advance care planning held with family member Z71.0 Alzheimer disease G30.9; F02.80 Weakness R53.1 Metabolic encephalopathy G93.41 UTI (urinary tract infection) N39.0 Additional Codes Advanced Care Planning - 08236 Advanced Care Planning 30 Min: 20901 Advanced Care Planning 30 Min ([id number])
[2022-10-15 09:39] LABS: Partial Thromboplastin Time 65.6 Seconds (21.0-31.0)
[2022-10-15 10:05] LABS: BUN Creatinine Ratio 73.2 (10-20); Calcium 9.5 mg/dl (8.6-10.3); Creatinine Clr Calc Pharmacy 92.2 ml/min; Est GFR (African American) 108.4 ml/min; Est GFR (Non-African American) 93.5 ml/min; Potassium 3.5 mmol/L (3.5-5.1)
[2022-10-15 13:12] LABS: Appearance Urine Turbid (Clear); Bilirubin Urine Negative (Negative); Blood Urine 3+ (Negative); Color Urine Yellow; Glucose Urine UA Negative (Negative); Ketones Urine 1+ (Negative); Leukocyte Esterase Urine 3+ (Negative); Nitrite Urine Negative (Negative); Protein Urine 3+ (Negative); Specific Gravity Urine 1.025 (1.000-1.030); Urobilinogen Urine Negative (Negative); pH Urine 6.5 (4.5-7.5)
[2022-10-15 13:35] LABS: RBC Urine >30 /hpf (0-4); WBC Urine >30 /hpf (0-5)
[2022-10-15 13:36] LABS: Bacteria Urine 3+ (Negative)
--- NOTE | 2022-10-15 14:03 | Hospitalist Progress Note ---
Date of Service October 15, 2022 Assessment & Plan (1) Metabolic encephalopathy: (2) UTI (urinary tract infection): Plan: (3) Sacral ulcer: (4) DVT (deep venous thrombosis): (5) Weakness: (6) Type 2 diabetes mellitus: (7) Polymyalgia rheumatica: (8) Hypertension: (9) Chronic steroid use: (10) Alzheimer disease: Plan Acute metabolic encephalopathy-likely in setting of UTI. Patient is still confused, oriented to herself. UTI-history of ESBL UTI in the past. On ertapenem, pending final culture results. Extensive DVT right lower extremity-on heparin drip. Spoke with pharmacist. Will switch heparin to loading dose Eliquis tonight. Sacral ulcer-images reviewed. Wound care. Diabetes mellitus type 2- SSI prn. Will not be aggressive given her terminal stage dementia, poor oral intake and other comorbidities Pulmonology rheumatica-continue chronic prednisone End-stage dementia/Alzheimer's-palliative for goals of care discussion. Plan to return to SNF on hospice once medically stable. No escalation of care. Currently awaiting urine culture results. DVT prophylaxis-on heparin-> Eliquis Disposition-plan to send to [facility] on hospice pending final urine culture results Admission and Anticipated Discharge Date Admission Date: October 15, 2022 Subjective Patient was seen and examined at bedside. She is awake, alert however confused and not answering questions appropriately. She speaks minimally. Review of Systems Review of Systems: Unobtainable due to cognitive status Physical Exam Physical Exam: General: Lying comfortably in bed, not in acute distress, on room air Chest: Clear breath sounds anteriorly CVS: Regular, normal heart sounds Abdomen: Soft, non tender, not distended, normal bowel sounds Neuro: Awake, alert, confused, not responding appropriately, minimally talking Extremities: No cyanosis, clubbing or edema Results & Data Results & Data Vital Signs (Past 12 Hours) Vital Signs Temp Pulse Resp BP Pulse Ox O2 Del Method 10/15/22 12:00 37.0 C 98 H 17 120/82 97 Room Air 10/15/22 08:00 Room Air 10/15/22 08:11 36.8 C 85 16 98/52 L 97 Room Air 10/15/22 04:17 36.3 C L 78 16 147/58 H 100 Room Air Laboratory Results Short CBC 10/14/22 10/15/22 Range/Units 13:52 08:04 WBC 9.55 8.71 (4.8-10.8) K/ul Hgb 11.0 L 9.7 L (12.0-16.0) g/dl Hct 36.2 L 32.1 L (37.0-47.0) % Plt Count 315 270 (130-400) K/uL BMP 10/14/22 10/15/22 13:47 08:04 Sodium 144 143 Potassium 4.8 3.5 D Chloride 109 H 109 H Carbon Dioxide 31 26 BUN 41 H 30 H Creatinine 0.55 L 0.41 L Glucose 105 H 94 Calcium 10.0 9.5 Liver Function 10/14/22 Range/Units 13:47 Total Bilirubin 1.0 (0.2-1.0) mg/dl AST 12 L (13-39) U/L ALT 11 (7-52) U/L Alkaline Phosphatase 95 (34-104) U/L Albumin 3.1 L (3.4-5.0) gm/dl Urine 10/14/22 10/15/22 Range/Units 14:17 12:30 Urine Color Yellow Yellow Urine Appearance Cloudy A Turbid A (Clear) Urine pH >= 9.0 H 6.5 (4.5-7.5) Ur Specific [place] 1.015 1.025 (1.000-1.030) Urine Protein 2+ H 3+ H (Negative) Urine Glucose (UA) Negative Negative (Negative) Medications Administered Current Inpatient Medications Acetaminophen (Acetaminophen 325 Mg Tab) 650 mg PO Q4H PRN PRN Reason: pain/fever Stop: 11/14/22 14:00 Heparin Sodium/Dextrose (Heparin Sodium/Dextrose) 25,000 units in 500 mls @ 19 mls/hr IV .Q24H PHOEBE; Protocol Stop: 11/13/22 15:44 Last Titration: 10/15/22 10:39 Dose: 950 units/hr, 19 mls/hr Ertapenem 1,000 mg/ Syringe 10 mls @ 2 mls/min IV Q24H [facility] Stop: 10/25/22 17:59 (8) Hypertension Hypertension type: unspecified Qualified Code(s): I10 - Essential (primary) hypertension
[2022-10-15] MEDS: ACETAMINOPHEN 325 MG TAB PO PRN (16:54)
[2022-10-15] MEDS ORDERED: ERTAPENEM SODIUM 1,000 MG in SYRINGE 0 ML IV SCH (18:00)
[2022-10-15] MEDS: APIXABAN 5 MG TABLET PO SCH (20:24)
[2022-10-16] MEDS: HEPARIN SODIUM/DEXTROSE 25,000 UNITS/500 ML BAG IV SCH (06:54)
[2022-10-16] MEDS: ACETAMINOPHEN 325 MG TAB PO PRN (07:49)
[2022-10-16 08:06] LABS: Partial Thromboplastin Ratio 1.2; Partial Thromboplastin Time 32.9 Seconds (21.0-31.0)
[2022-10-16] MEDS: APIXABAN 5 MG TABLET PO SCH (08:09)
--- NOTE | 2022-10-16 16:25 | Discharge Summary ---
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 Pt's anemia has been improving outpatient with labs from 10/09 showing H&H of 9.0/30.0. History from the patient is unobtainable due to confusion and advanced dementia so prior records reviewed including recent notes from SNF and recent admission to [facility]. Additional history obtained from pt's son, Derek, by phone. Pt's most recent baseline seems to be oriented to person most days but not always time or place. Does not always recognize family and speaks about family members who are as if they are still alive. She is wheelchair bound at baseline. Initially after discharge last month, she wasn't eating much and was often refusing oral meds but this has improved. Pt's son states he received a phone call earlier today that pt was more confused and lethargic so they were sending her to the ED due to concern for another UTI. He also noted that she was having some pain in the RLE recently and there appears to have been a RLE doppler that was ordered at the SNF but not yet scheduled. Doppler in the ED reveals extensive RLE DVT - son does not recall pt every having something similar previously though chart lists a possible PE in 2019. No reports of chest pain or increased dyspnea. Not on anticoagulation prior to today in view of recent anemia and hx GI bleeds. Admission Exam Per Admitting Provider Constitutional: + altered mental status; no acute distress Eyes: + anicteric sclerae Neck: trachea midline Respiratory: no respiratory distress and no labored breathing Auscultation: lungs clear to auscultation bilaterally Cardiovascular: Rate/Rhythm: regular rate and regular rhythm Gastrointestinal (Abdomen): Inspection/Auscultation: normal bowel sounds; abdomen not distended Percussion/Palpation: abdomen soft Musculoskeletal: Head/Neck/Chest: normocephalic and head atraumatic Neurologic: moves all extremities and + confused Psychiatric: Orientation: oriented to person; + not oriented to place and + not oriented to time Principal Diagnosis End-stage dementia, metabolic encephalopathy, UTI, acute DVT right lower extremity Discharge Exam General: Lying comfortably in bed, not in distress, on room air Chest: Clear breath sounds bilaterally, no wheezes or crackles CVS: Regular rate and rhythm, normal heart sounds, no murmur Abdomen: Soft, non tender, not distended, normal bowel sounds Neuro: Awake, alert, pleasantly confused, minimally conversive Extremities: No cyanosis, clubbing or edema Discharge Data Allergies Allergy/AdvReac Type Severity Reaction Status Date / Time adhesive Allergy Intermediate SKIN Verified 10/14/22 17:23 BLISTERS tetanus toxoid, adsorbed Allergy Intermediate SWELLING Verified 10/14/22 17:23 AT SITE codeine AdvReac Intermediate HEART Verified 10/14/22 17:23 PALPITATIONS (RECIEVED MORPHINE IV IN 2004 ADMIT) Consultations 10/14/22 15:36 ED Decision to Admit Stat 10/14/22 20:49 Consult Palliative Care Routine Ordered Studies 10/14/22 13:31 US venous doppler LE RT Stat Laboratory Results WBC 8.71 K/ul (4.8-10.8) 10/15/22 08:04 RBC 3.15 M/uL (4.20-5.40) L 10/15/22 08:04 Hgb 9.7 g/dl (12.0-16.0) L 10/15/22 08:04 Hct 32.1 % (37.0-47.0) L 10/15/22 08:04 MCV 101.9 fL (80.0-100.0) H 10/15/22 08:04 MCH 30.8 pg (25.0-34.0) 10/15/22 08:04 MCHC 30.2 g/dL (32.0-36.0) L 10/15/22 08:04 RDW Std Deviation 65.7 fL (36.4-46.3) H 10/15/22 08:04 RDW Coeff of Junie 17.6 % (11.5-14.5) H 10/15/22 08:04 Plt Count 270 K/uL (130-400) 10/15/22 08:04 MPV 10.0 fL (9.4-12.4) 10/15/22 08:04 Immature Gran % (Auto) 0.3 % 10/15/22 08:04 Neut % (Auto) 59.5 % 10/15/22 08:04 Lymph % (Auto) 28.2 % 10/15/22 08:04 [place]y % (Auto) 7.9 % 10/15/22 08:04 Eos % (Auto) 3.6 % 10/15/22 08:04 Baso % (Auto) 0.5 % 10/15/22 08:04 Neut # (Auto) 5.18 K/uL (1.40-6.50) 10/15/22 08:04 Lymph # (Auto) 2.46 K/uL (1.2-3.4) 10/15/22 08:04 [place]y # (Auto) 0.69 K/uL (0.11-0.59) H 10/15/22 08:04 Eos # (Auto) 0.31 K/uL (0-0.50) 10/15/22 08:04 Baso # (Auto) 0.04 K/uL (0-0.2) 10/15/22 08:04 Immature Gran # (Auto) 0.03 K/uL (0.01-0.20) 10/15/22 08:04 APTT 32.9 Seconds (21.0-31.0) H 10/16/22 07:04 PTT Ratio 1.2 10/16/22 07:04 Sodium 143 mmol/L (136-145) 10/15/22 08:04 Potassium 3.5 mmol/L (3.5-5.1) D 10/15/22 08:04 Chloride 109 mmol/L (98-107) H 10/15/22 08:04 Carbon Dioxide 26 mmol/L (21-32) 10/15/22 08:04 Anion Gap 8 (3-11) 10/15/22 08:04 BUN 30 mg/dl (6-23) H 10/15/22 08:04 Creatinine 0.41 mg/dl (0.6-1.2) L 10/15/22 08:04 Est Cr Clr Drug Dosing 92.2 ml/min 10/15/22 08:04 Est GFR ( Amer) 108.4 ml/min 10/15/22 08:04 Est GFR (Non-Af Amer) 93.5 ml/min 10/15/22 08:04 BUN/Creatinine Ratio 73.2 (10-20) H 10/15/22 08:04 Glucose 94 mg/dl (70-99(Fasting)) 10/15/22 08:04 POC Glucose 169 mg/dl (70-99) H 10/15/22 16:22 Calcium 9.5 mg/dl (8.6-10.3) 10/15/22 08:04 Total Bilirubin 1.0 mg/dl (0.2-1.0) 10/14/22 13:47 AST 12 U/L (13-39) L 10/14/22 13:47 ALT 11 U/L (7-52) 10/14/22 13:47 Alkaline Phosphatase 95 U/L (34-104) 10/14/22 13:47 Troponin I High Sens 11.3 pg/ml (0-14) 10/14/22 13:47 Total Protein 5.6 gm/dl (6.0-8.3) L 10/14/22 13:47 Albumin 3.1 gm/dl (3.4-5.0) L 10/14/22 13:47 Globulin 2.5 gm/dl (2.5-4.0) 10/14/22 13:47 Albumin/Globulin Ratio 1.2 (0.9-2) 10/14/22 13:47 Lipase 48 U/L (11-82) 10/14/22 13:47 Urine Color Yellow 10/15/22 12:30 Urine Appearance Turbid (Clear) A 10/15/22 12:30 Urine pH 6.5 (4.5-7.5) 10/15/22 12:30 Ur Specific Diamond 1.025 (1.000-1.030) 10/15/22 12:30 Urine Protein 3+ (Negative) H 10/15/22 12:30 Urine Glucose (UA) Negative (Negative) 10/15/22 12:30 Urine Ketones 1+ (Negative) H 10/15/22 12:30 Urine Blood 3+ (Negative) H 10/15/22 12:30 Urine Nitrite Negative (Negative) 10/15/22 12:30 Urine Bilirubin Negative (Negative) 10/15/22 12:30 Urine Urobilinogen Negative (Negative) 10/15/22 12:30 Ur Leukocyte Esterase 3+ (Negative) H 10/15/22 12:30 Urine RBC >30 /hpf (0-4) H 10/15/22 12:30 Urine WBC >30 /hpf (0-5) H 10/15/22 12:30 Ur Epithelial Cells 5-10 /lpf (0-5) H 10/15/22 12:30 Calcium Oxalate Crystal Present (None Prsent) A 10/14/22 14:17 Urine Bacteria 3+ (Negative) H 10/15/22 12:30 Nasal Screen MRSA (PCR) Negative (Negative) 10/15/22 09:42 SARS-CoV-2, RNA, NAAT NEGATIVE (NEGATIVE) 10/16/22 11:35 Impressions Chest X-Ray 10/14/22 13:27 XR chest 1V portable CLINICAL HISTORY: Altered mental status. COMPARISON STUDY: Chest CT August 06, 2022 and chest radiograph September 09, 2022. FINDINGS: Left humeral internal fixation is partially imaged. Cardiomegaly is unchanged. There is no evidence for pulmonary edema. No pneumothorax or pleural effusion is present. No consolidation is identified. Cholecystectomy clips are incidentally noted. Apparent left basilar opacity is likely artifactual. IMPRESSION: No definite acute cardiopulmonary findings. Apparent left basilar opacity is likely artifactual. Airspace opacity could appear similar. ACT 112: Negative or not required by law. Electronically signed by: Enrrique Johns M.D. 10/14/2022 2:15 PM Venous Doppler Study 10/14/22 13:31 RIGHT LOWER EXTREMITY VENOUS DOPPLER CLINICAL HISTORY: Right lower extremity pain. COMPARISON STUDY: Bilateral lower extremity venous Doppler ultrasound December 17, 2021. TECHNIQUE: Sonography of the deep venous system of the right lower extremity was performed. Compression and augmentation were evaluated. FINDINGS: There is deep venous thrombus within the right common femoral, femoral, popliteal, posterior tibial and peroneal veins. IMPRESSION: Positive study for deep venous thrombus within the right common femoral, femoral, popliteal, posterior tibial and peroneal veins. ACT 112: Negative or not required by law. Electronically signed by: Enrrique Johns M.D. 10/14/2022 3:13 PM Hospital Course (1) Metabolic encephalopathy: (2) UTI (urinary tract infection): (3) Sacral ulcer: (4) DVT (deep venous thrombosis): (5) Weakness: (6) Type 2 diabetes mellitus: (7) Polymyalgia rheumatica: (8) Hypertension: (9) Chronic steroid use: (10) Alzheimer disease: Plan Metabolic encephalopathy with advanced Alzheimer's dementia-likely in setting of UTI. Patient is still pleasantly confused, minimally conversive. Unclear if this is her baseline due to her advanced dementia. Patient was seen by palliative care and is being discharged to [facility] on hospice. UTI-history of ESBL UTI in the past. Urine culture was negative however UA was concerning. She was on ertapenem and is being discharged on nitrofurantoin as per her prior culture results Extensive DVT right lower extremity-status post heparin drip and has been changed to Eliquis for 3 to 6-month. However she might probably benefit from lifelong anticoagulation given her dementia and limited mobility and her high risk for recurrent DVT unless limited by bleeding episodes. Sacral ulcer-images reviewed. Wound care. Diabetes mellitus type 2- SSI prn. Will not be aggressive given her terminal stage dementia, poor oral intake and other comorbidities Pulmonology rheumatica-continue chronic prednisone Total Time Total Time Spent Total Time Spent (In Minutes): 40 Discharge Plan Discharge Items Patient Disposition: Transfer Assisted Fac Reason For Visit: LETHARGY, DVT Discharge Diagnosis: Metabolic encephalopathy, Acute DVT, UTI, End stage dementia Activity: Resume your previous activity Non-emergency contact: Primary Care Provider Call non-emergency contact if: you have any medication questions, your symptoms worsen and your pain is concerning for you Follow-up/Referrals: Jan Royal at [place] [Primary Care Provider] - Diet: Regular Addtl Attending Provider Instructions: Continue eliquis at least for 3-6 months for your DVT. Follow up with your family doctor for final duration. Take macrobid twice daily for 7 days Hospice services will take over at your facility Pending Studies at Discharge: No Stand-Alone Forms: My [facility] Skilled Items Patient informed of condition?: Yes DNR: Yes Discharge Level of Care: Skilled Communicable Disease: No Discharge Prognosis: Stable Lines: None Urinary Catheter: No Medications and DC Order Prescriptions: New Eliquis 5 mg Tablet 5 mg PO BID Qty: 60 0RF Rx Instructions: Take 2 tabs twice daily for 6 days then 1 tab twice daily nitrofurantoin monohyd/m-cryst [Macrobid] 100 mg capsule 100 mg PO BID 7 Days Qty: 14 0RF Rx Instructions: must administer with a meal/food Continued acetaminophen [Tylenol] 325 mg Tablet 650 mg PO Q4 PRN (Reason: .fever/mild pain) gabapentin 600 mg Tablet 600 mg PO TID Rx Instructions: Give AM,Noon, & HS. Hold for lethargy polyethylene glycol 3350 [Miralax] 17 gram Powder In Packet 17 g PO DAILY PRN (Reason: Constipation) donepezil 10 mg tablet 10 mg PO HS prednisone 20 mg Tablet 10 mg PO QAM cyanocobalamin (vitamin B-12) [Vitamin B-12] 1,000 mcg Tablet 1,000 mcg PO DAILY thiamine HCl (vitamin B1) 100 mg Tablet 200 mg PO QAM Aquaphor Ointment 1 applic TOPICAL TID Rx Instructions: apply to sacrum folic acid 400 mcg Tablet 0.4 mg PO DAILY carvedilol 3.125 mg tablet 3.125 mg PO BID Rx Instructions: am,hs acetaminophen 650 mg Tablet Extended Release 650 mg PO Q8H potassium chloride 20 mEq tablet,ER particles/crystals 20 meq PO QAM ibuprofen 200 mg Tablet 200 mg PO Q12 PRN (Reason: .Breakthrough pain, mod-severe) nitroglycerin 0.4 mg tablet, sublingual 0.4 mg sublingual DIRECTED PRN (Reason: Chest Pain) insulin aspart U-100 100 unit/mL (3 mL) insulin pen 5 unit SUBCUT TIDM insulin glargine [Lantus Solostar U-100 Insulin] 100 unit/mL (3 mL) Insulin Pen 10 unit SUBCUT QAM Rx Instructions: hold for bsg <100 pantoprazole [address] for susp in packet 40 mg PO BID cholecalciferol (vitamin D3) [Vitamin D3] 50 mcg (2,000 unit) Tablet 50 mcg PO DAILY magnesium oxide 400 mg magnesium Tablet 400 mg PO DAILY Discharge Orders: Discharge Order (Routine); Ordered 10/16/22 Ordered By: Lemuel Lopez Admission Data Admit Date/Time: 10/15/22 10:52 Attending Provider: Lemuel Lopez Admit Provider: Horace Norman Primary Care Provider: Jan Royal [facility] Other Providers: Horace Norman ; Jenni Dorantes ; Jan Royal at [place] Other Interventions: Discharge Summary Assessment (RN) Last Done: 10/16/22 13:20
[2022-10-22] MEDS ORDERED: APIXABAN 5 MG TABLET PO SCH (21:00)
== END 2022-10-16 14:00 | DRG 299 ==
LOC: 2S 13:22 → ED 13:22 → SUATTDRO 16:49 → 2S 20:15